=== PATIENT | female | born 1960 | race Caucasian/White ===

== ENCOUNTER → 2019-07-05 13:51 | Outpatient (BNVA) | payer MEDICARE, SELFPAY | PROVIDERS: Family Provider Family Medicine; PCP Family Medicine; Visit Provider Nurse Practitioner | DX: G89.4 Chronic pain syndrome (principal); M54.5 Low back pain; Z79.891 Long term (current) use of opiate analgesic | CPT/HCPCS: 99214 ==

== ENCOUNTER 2019-08-22 14:52 | Outpatient (CLI) | payer MEDICARE, SELFPAY ==
--- NOTE | 2019-08-22 14:59 | MR_ITS ---
WS: [id number] MRI BRAIN WITHOUT CONTRAST HISTORY: CHRONIC MIGRAINE COMPARISON: CT head 12/14/2017 TECHNIQUE: Diffusion imaging, multiplanar T1, T2 and FLAIR imaging obtained. No evidence for acute infarct or hemorrhage. Jeffries-white matter differentiation is normal. Mild chronic small vessel ischemic disease in the luciano bilaterally no prior infarcts. No remote or acute infarcts are volume loss. Ventricles and extra-axial spaces are normal. No inferior displacement of cerebellar tonsils. The sella turcica and pituitary gland are unremarkabl e. Posterior fossa is also unremarkable. Dural venous sinuses and [place] demonstrate no abnormality on this unenhanced studies. Paranasal sinuses: Clear. Mastoid air cells: Normal. Calvarium and scalp: Intact. MR/MR head wo con* [id number] IMPRESSION: 1. No acute infarct or hemorrhage. 2. Minimal small vessel ischemic change in the luciano.
== END 2019-08-22 14:53 | disposition home or self-care (01) ==
LOC: RADSHAW 14:58
PROVIDERS: Family Provider Family Medicine; PCP Internal Medicine; Visit Provider Internal Medicine
DX: G43.909 Migraine, unspecified, not intractable, without status migrainosus (principal)
CPT/HCPCS: 70551

== ENCOUNTER 2019-08-23 13:31 | Outpatient (CLI) | payer MEDICARE, SELFPAY ==
--- NOTE | 2019-08-23 13:34 | MM_ITS ---
WS: [id number] BILATERAL DIGITAL SCREENING MAMMOGRAPHY WITH CAD CLINICAL INFORMATION: SCREENING HISTORY: Screening mammogram. Pain near Left underarm COMPARISON: None. TECHNIQUE: Bilateral CC and MLO views. FINDINGS: Scattered fibroglandular densities bilaterally. Lobulated focal asymmetric densities lower inner left breast measuring 1.7 and 2.1 CM. A few associated calcifications. Findings are indeterminate and rec ommend further evaluation with spot compression views and ultrasound. Unremarkable right breast. MM/[place] [id number] IMPRESSION: BI-RADS: 0-Incomplete: Need additional imaging evaluation FOLLOW UP: Need Additional Imaging
--- NOTE | 2019-08-23 14:24 | XR_ITS ---
WS: [id number] DEXA (DUAL ENERGY X-RAY ABSORPTIOMETRY) Bone mineral density was performed using a kingsky machine. HISTORY: ASYMPTOMATIC POSTMENOPAUSAL COMPARISON: 11/12/2015 Lumbar spine BMD (L1-L4): 1.102 g/cm2 T score: -0.7 Z score: -0.5 Total hip BMD: Left: 0.855 g/cm2. T score: -1.2 Z score: -1.0 Right: 0.848 g/cm2. T score: -1.3 Z score: -1.1 10 year probability of a major osteoporotic fracture is 28%. Compared to the prior study from 11/12/2015. Lumbar spine bone mineral density has increased by 0.5%. Bilateral hips bone mineral density has decreased by 0.7%. XR/XR DEXA axial skeleton* [id number] IMPRESSION: OSTEOPENIA based upon the WHO classification for females. No significant change in bone mineral density since the prior examination.
== END 2019-08-23 13:32 | disposition home or self-care (01) ==
LOC: RADSHAW 13:31
PROVIDERS: Family Provider Family Medicine; PCP Internal Medicine; Visit Provider Internal Medicine
DX: Z12.31 Encounter for screening mammogram for malignant neoplasm of breast (principal); Z78.0 Asymptomatic menopausal state
CPT/HCPCS: 77067; 77080

== ENCOUNTER → 2019-09-01 13:34 | Outpatient (BNVA) | payer MEDICARE, SELFPAY | PROVIDERS: Family Provider Family Medicine; PCP Internal Medicine; Visit Provider Nurse Practitioner | DX: M54.5 Low back pain (principal); Z79.891 Long term (current) use of opiate analgesic | CPT/HCPCS: 99213 ==

== ENCOUNTER 2019-11-15 11:35 | Outpatient (CLI) | payer MEDICARE, SELFPAY ==
--- NOTE | 2019-11-15 12:05 | US_ITS ---
WS: [id number] ADDITIONAL VIEWS LEFT MAMMOGRAM LEFT BREAST ULTRASOUND HISTORY: ABNORMAL MAMMOGRAM LT COMPARISON: 08/23/2019 LEFT MAMMOGRAM: Spot compression views and true ML. Irregular asymmetry in the LEFT anterior breast persists. Asymmetry is within the medial inferior LEF T breast and measures 2.8 x 1.5 cm. On one image there is mild architectural distortion. There are a few adjacent calcifications which appear benign. LEFT BREAST ULTRASOUND 2-D and color Doppler imaging submitted. Ultrasound is directed to the inferomedial LEFT breast. There is an ill-defined hypoechoic area at 8: 00, 1 cm from the nipple, measuring 1.4 x 0.8 x 0.6 cm. This is in the location of the mammographic abnormality. No distortion. There are mild tubular echogenicities suggesting this may be a ductal abn ormality. Notified Charity Salazar MD at 11/15/2019 1:45 PM. US/US breast LT limited* [id number] IMPRESSION: BI-RADS: 4A-Suspicious: Low FOLLOW UP: Biopsy Recommended Mammographic asymmetry and a vague abnormality on the LEFT breast ultrasound im aging. Attempted biopsy is warranted. This may be normal fibroglandular pattern for this patient. Due to the changes on the mammogram and ultrasound, a biopsy should be attempted as this could be infiltrating ductal neoplastic process.
== END 2019-11-15 11:36 | disposition home or self-care (01) ==
LOC: RADSHAW 11:39
PROVIDERS: PCP Internal Medicine; Visit Provider Nurse Practitioner Family
DX: R92.8 Other abnormal and inconclusive findings on diagnostic imaging of breast (principal); N64.89 Other specified disorders of breast
CPT/HCPCS: 76642; 77065

== ENCOUNTER 2019-11-22 10:16 | Outpatient (CLI) | payer MEDICARE, SELFPAY ==
--- NOTE | 2019-11-22 10:46 | US_ITS ---
WS: [id number] ULTRASOUND-GUIDED LEFT BREAST BIOPSY HISTORY: ABNORMAL MAMMOGRAM-L BREAST COMPARISON: 11/15/2019 Procedure, risks and complications are explained to the patient. Medications are reviewed. Consent is obtained. The mass in the LEFT breast is localized with ultrasound. This is a very vague area of distortion at the 8 to 9:00 position, 1 cm from the nipple. Skin is cleansed with ChloraPrep and anesthetized with 1% buffered lidocaine. Small dermatome is made. Under sterile conditions mass is biopsied with a 14-g auge Achieve needle. Multiple core biopsies are performed. Material placed in formalin and [facility]. No complications encountered. Breast tissue marker ([employer] ultrasound enhanced ribbon): Single. Patient left the radiology suite with no complications. Patient is instructed to return to [facility] or [facility] with any concerns. US/[place] [id number] IMPRESSION: 1. Uncomplicated core needle biopsy vague asymmetry and distortion LEFT breast at 8-9 o'clock. PATHOLOGY: Benign breast tissue with fibrocystic changes. Duct ectasia and rio osis. No malignancy. RECOMMENDATION: Diagnostic mammogram 6 months LEFT breast. The asymmetry in the LEFT breast is likely benign and this is concordant with p athology. With no prior studies for comparison. Follow-up is recommended to [facility] continued stability.
== END 2019-11-22 10:17 | disposition home or self-care (01) ==
PROVIDERS: PCP Internal Medicine; Visit Provider Nurse Practitioner Family
DX: R92.8 Other abnormal and inconclusive findings on diagnostic imaging of breast (principal); N60.42 Mammary duct ectasia of left breast; N60.22 Fibroadenosis of left breast
CPT/HCPCS: 19083; 88305; J2001

== ENCOUNTER 2019-12-19 12:00 | Outpatient (CLI) | payer MEDICARE, SELFPAY | END 2019-12-19 12:01 | disposition home or self-care (01) | LOC: SLEEP 12-20 15:35 | PROVIDERS: PCP Internal Medicine; Visit Provider Internal Medicine | DX: G47.10 Hypersomnia, unspecified (principal) | CPT/HCPCS: G0399 ==

== ENCOUNTER → 2019-12-28 10:37 | Outpatient (BNVA) | payer MEDICARE, SELFPAY | PROVIDERS: PCP Internal Medicine; Visit Provider Nurse Practitioner | DX: G89.29 Other chronic pain (principal); M54.41 Lumbago with sciatica, right side; M54.42 Lumbago with sciatica, left side; Z79.891 Long term (current) use of opiate analgesic | CPT/HCPCS: 99213 ==

== ENCOUNTER → 2020-01-01 13:30 | Outpatient (BNVA) | payer MEDICARE, SELFPAY | PROVIDERS: PCP Internal Medicine; Visit Provider Obstetrics & Gynecology | DX: Z12.4 Encounter for screening for malignant neoplasm of cervix (principal) | CPT/HCPCS: 88175 ==

== ENCOUNTER → 2020-03-06 10:02 | Outpatient (BNVA) | payer MEDICARE, SELFPAY | PROVIDERS: PCP Internal Medicine; Visit Provider Nurse Practitioner | DX: G89.29 Other chronic pain (principal); M54.41 Lumbago with sciatica, right side; M54.42 Lumbago with sciatica, left side; Z79.891 Long term (current) use of opiate analgesic | CPT/HCPCS: 99214 ==

== ENCOUNTER → 2020-04-03 13:28 | Outpatient (BNVA) | payer MEDICARE, SELFPAY | PROVIDERS: PCP Internal Medicine; Visit Provider Anesthesiology | DX: G89.29 Other chronic pain (principal); M54.5 Low back pain; Z79.891 Long term (current) use of opiate analgesic | CPT/HCPCS: 99212; 99214 ==

== ENCOUNTER → 2020-05-30 14:16 | Outpatient (BNVA) | payer MEDICARE, SELFPAY | PROVIDERS: PCP Internal Medicine; Visit Provider Nurse Practitioner | DX: G89.29 Other chronic pain (principal); M54.5 Low back pain; Z79.891 Long term (current) use of opiate analgesic | CPT/HCPCS: 99213; 99214 ==

== ENCOUNTER 2020-06-20 14:05 | Outpatient (CLI) | payer MEDICARE, SELFPAY ==
--- NOTE | 2020-06-20 14:11 | MM_ITS ---
WS: [id number] Left breast diagnostic digital mammogram, 06/20/2020 Clinical Data: 6 MO F/U LEFT BREAST DUCTAL ECTASIA Comparison: 11/15/2019, 08/23/2019. Findings: The asymmetry in the medial inferior aspect of the left breast has not changed. There is a biopsy cli p in the midportion of the asymmetry. The remainder left breast is unremarkable. There are no seconda ry signs of carcinoma. There are no clustered calcifications. MM/[place] [id number] Impression: 1. Asymmetric tissue and medial inferior aspect left breast unchanged. 2. Recommend return to annual screening mammograms. BIRADS: 2-Benign FOLLOW UP: 1 Year Follow-up The CAD color checker was used.
== END 2020-06-20 14:06 | disposition home or self-care (01) ==
LOC: RADSHAW 14:08
PROVIDERS: PCP Internal Medicine; Visit Provider Nurse Practitioner Family
DX: R92.8 Other abnormal and inconclusive findings on diagnostic imaging of breast (principal); N64.89 Other specified disorders of breast
CPT/HCPCS: 77065

== ENCOUNTER 2020-07-03 14:16 | Outpatient (RCR) | payer MEDICARE, SELFPAY | END 2020-07-14 23:59 | disposition home or self-care (01) | LOC: SPT 14:16 | PROVIDERS: PCP Internal Medicine; Referring Provider Internal Medicine; Visit Provider Internal Medicine | DX: M51.17 Intervertebral disc disorders with radiculopathy, lumbosacral region (principal) | CPT/HCPCS: 97110; 97161 ==

== ENCOUNTER 2020-07-15 06:00 | Outpatient (RCR) | payer MEDICARE, SELFPAY | END 2020-08-11 23:59 | disposition home or self-care (01) | LOC: SPT 06:00 | PROVIDERS: PCP Internal Medicine; Referring Provider Internal Medicine; Visit Provider Internal Medicine | DX: M51.17 Intervertebral disc disorders with radiculopathy, lumbosacral region (principal) | CPT/HCPCS: 97032; 97110; 97530 ==

== ENCOUNTER 2020-08-26 08:55 | Outpatient (CLI) | payer MEDICARE, SELFPAY ==
--- NOTE | 2020-08-26 09:00 | MR_ITS ---
WS: [id number] MRI LUMBAR SPINE NONCONTRAST TECHNIQUE: Sagittal T1, T2 and STIR imaging. Axial T1 and T2 imaging. CLINICAL INFORMATION: DEGENERATIVE DISC DISEASE LUMBOSACRAL SPINE COMPARISON: MRI lumbar April 2017 FINDINGS: Mild lumbar curve. Mild disc bulging worse at L3-L4 and L4-L5. Biconcave slightly comminuted compress ion of the T12 vertebral body with mild to moderate edema. Moderate retropulsion posterior superior c ortex with moderate central canal stenosis. Biconcave compression with loss of approximately 60% vert ebral body height centrally. Associated susceptibility artifact at T12 may be due to prior vertebropl asty changes. Recommend correlation with clinical history. Edema extends to the pedicles bilaterally. Fluid-filled flexure cleft visualized in the superior endplate. Compression fracture new since 2018. L1-L2: Mild annular bulging. Spinal canal and foramen are patent. Mild facet arthropathy. L2-L3: Mild compression L2 superior endplate unchanged. No significant disc bulging. Moderate facet a rthropathy. Spinal canal and foramen are patent. L3-L4: Disc osteophyte complex with endplate ridging. Mild central canal stenosis. Impingement [place] right L4 nerve root. Mild right and no significant left foraminal narrowing. Moderate facet arth ropathy. L4-L5: Mild disc osteophytic ridging. Narrowing of the left greater than right subarticular recess. M ild central canal stenosis. Foramen are patent. L5-S1: Disc osteophyte complex with endplate ridging. Mild facet arthropathy. Spinal canal and forame n are patent. Visualized pelvic bony structures: Normal. Paravertebral soft tissues: Normal. MR/MR lumbar spine wo con* [id number] IMPRESSION: 1. Mild lumbar curve. Biconcave slightly comminuted compression fracture T12 v ertebral body with mild to moderate associated edema. Retropulsion of the poste rior superior cortex with moderate central canal stenosis. Susceptibility artif act may be due to prior vertebroplasty changes. Recommend correlation with clin ical history. 2. Mild central canal stenosis L3-L4 and L4-L5 with impingement on the right L3-L4 and left L4-L5 subarticular recess. 3. Mild to moderate facet arthropathy L3-L4 and L4-L5.
== END 2020-08-26 08:56 | disposition home or self-care (01) ==
LOC: RADSHAW 08:58
PROVIDERS: PCP Internal Medicine; Visit Provider Internal Medicine
DX: M51.17 Intervertebral disc disorders with radiculopathy, lumbosacral region (principal); M47.816 Spondylosis without myelopathy or radiculopathy, lumbar region; M48.061 Spinal stenosis, lumbar region without neurogenic claudication; R60.0 Localized edema
CPT/HCPCS: 72148

== ENCOUNTER → 2020-09-10 13:33 | Outpatient (BNVA) | payer MEDICARE, SELFPAY | PROVIDERS: PCP Internal Medicine; Visit Provider Orthopaedic Surgery | DX: M85.88 Other specified disorders of bone density and structure, other site (principal); S22.080A Wedge compression fracture of T11-T12 vertebra, initial encounter for closed fracture; M54.5 Low back pain; G89.29 Other chronic pain; X58.XXXA Exposure to other specified factors, initial encounter | CPT/HCPCS: 72110; 73522 ==

== ENCOUNTER 2020-10-27 17:50 | Inpatient (IN) | payer MEDICARE, SELFPAY ==
[2020-10-27] VITALS (10 sets, daily range): BP systolic 130–154; BP diastolic 70–84; PULSE 77–88; RESP 18–20; TEMP 36.6–37.3; O2SAT 91–98; BMI 29.5
--- NOTE | 2020-10-27 17:59 | CTR_ITS ---
PROCEDURE INFORMATION: Exam: CT Lumbar Spine Without Contrast Exam date and time: 10/27/2020 6:09 PM Age: 60 years old Clinical indication: Injury or trauma; Blunt trauma (contusions or hematomas); Patient HX: HX of t12 comp FX C/O worsened pain after fall down steps; Additional info: Back pain, compression fracture TECHNIQUE: Imaging protocol: Computed tomography images of the lumbar spine without contrast. Total images: 368 Radiation optimization: All CT scans at this facility use at least one of these dose optimization techniques: automated exposure control; mA and/or kV adjustment per patient size (includes targeted exams where dose is matched to clinical indication); or iterative reconstruction. COMPARISON: 1[place] [id number] 12/14/2017 6:44 AM 2. CR XR lumbar spine min 4V [id number] 09/10/2020 1:40:40 PM 3. MR lumbar spine wo con* [id number] 08/26/2020 9:59:27 AM RADIATION DOSE METRICS: Total DLP (mGy-cm): 2128.86 FINDINGS: Vertebrae: Old burst fracture T12. Since MRI examination of 08/26/2020 there has been increased dorsal/posterior translation of the posterior retropulsion fracture component off the posterior column of the vertebral body resulting in increased spinal stenosis. The AP diameter of the canal has decreased from 8.8 mm to 5.8 mm. Vertebra plana T12. No new fracture identified. Large Schmorl's node superior endplate L2. No spondylolysis or spondylolisthesis. Facet arthrosis. Mild scoliosis. Discs/Spinal canal/Neural foramina: Degenerative disc disease L4/L5 and L5/S1 with spondylosis deformans but without herniated nucleus pulposis or significant posterior annular disc bulge. Mild posterior annular disc bulge L3/L4 not resulting in central canal stenosis or neural foramina stenosis. Soft tissues: No visible significant paraspinal muscle atrophy. CT/CT lumbar spine wo con* [id number] IMPRESSION: 1. Old burst fracture T12 with vertebra plana. 2. Interval increase dorsal/posterior translation of the posterior retropulsion fragment resulting in increased central canal stenosis T12. Please review text above. Radiation Dose CTDIVOL = (mGy): DLP = 2128.86 (mGy-cm)
[2020-10-27] MEDS: morphine 4 mg/mL SDV 1 mL IM (18:10)
[2020-10-27] MEDS: orphenadrine 30 mg/mL Inj 2 mL 60 MG IM (18:10)
[2020-10-27 18:41] LABS: Protein Urine Neg (Negative); Specific Gravity, Urine 1.005 (1.005-1.030); Urine Color Yellow (Yellow); pH Urine 5 (5-7)
[2020-10-27 18:42] LABS: Add Urine Microscopic? YES; Bilirubin Urine Neg (Negative); Blood Urine Trace (Negative); Glucose Urine UA Norm (Normal); Ketones Urine Negative (Negative); Leukocyte Esterase Urine 2+ (Negative); Nitrate Urine Negative (Negative); Urobilinogen Urine Norm (Negative)
[2020-10-27 18:47] LABS: RBC Urine 0-4 /hpf (0-2); WBC Urine >100 /hpf (0-5)
[2020-10-27 18:48] LABS: Squamous Epithelial Cell Urine 25-40 /hpf (0-5)
[2020-10-27 18:49] LABS: Add Urine Culture? No; Bacteria Urine 2+ /hpf
--- NOTE | 2020-10-27 20:11 | PM.HP ---
Providers/Chief Complaint Admitting Physician: Nasim Kelly MD Primary Care Provider: Charity Salazar MD Chief Complaint: BACK PAIN History of Present Illness Niki Agosto is a 60 year old female with pmh of compression fracture ,chronic pain presnted to ER with worsening back pain for two weeks, constipation and urinary retention. Reports she fell in May. She has been following with pain management and spine surgery. In the ER she had a CT lumbar spine that showed progression fracture and stenosis she follows with spine surgery she denies fall, fevers, chills, addle anesthesia reports discomfort, and has discomfort radiating down both legs. Review of Systems General: Reports: 10 or more systems reviewed and unremarkable except in HPI and below Const: Denies: fever(s) or chills Eyes: Denies: change in vision ENMT: Denies: throat pain Card: Denies: chest pain Resp: Denies: dyspnea GI: Denies: abdominal pain : Reports: difficulty voiding Musc: Reports: back pain and extremity pain Skin/Breast: Denies: rash Neuro: Reports: numbness in extremities Medications/Allergies Home Medications Medication Instructions Recorded Confirmed Last Taken Type levothyroxine 50 mcg capsule 50 mcg PO QDAY 07/04/19 09/10/20 Unknown History propranolol 40 mg tablet 40 mg PO BID 07/04/19 09/10/20 Unknown History sumatriptan succinate 50 mg tablet 50 mg PO .1-2 prn tab 07/04/19 09/10/20 Unknown History topiramate 50 mg tablet 50 mg PO ONCE tab 07/04/19 09/10/20 Unknown History cholecalciferol (vitamin D3) 125 unit PO .1 week tab 09/01/19 09/10/20 Unknown History mcg (5,000 unit) disintegrating tablet topiramate 25 mg tablet 25 mg PO DAILY 09/01/19 09/10/20 Unknown History verapamil 120 mg tablet 120 mg PO DAILY tab 09/01/19 09/10/20 Unknown History oxybutynin chloride 5 mg tablet 10 mg PO DAILY tab 01/01/20 09/10/20 Unknown History lorazepam 0.5 mg tablet 0.5 mg PO ONCE PRN tab 03/06/20 09/10/20 Unknown History hydrocodone 10 mg-acetaminophen 1 tab PO QID PRN 30 Days #120 tab 04/03/20 09/10/20 Unknown Rx 325 mg tablet baclofen 20 mg tablet 20 mg PO QID PRN 30 Days #120 tab 05/30/20 09/10/20 Unknown Rx clobetasol 0.05 % topical cream 1 applic TOPICAL BID PRN #30 g 07/22/20 09/10/20 Unknown Rx nystatin 100,000 unit/gram topical 1 applic TOPICAL BID #30 gm 07/22/20 09/10/20 Unknown Rx powder duloxetine 30 mg capsule,delayed 60 mg PO QDAY cap 09/10/20 09/10/20 Unknown History release hydrocodone 10 mg-acetaminophen 1 tab PO Q4H PRN tab 09/10/20 09/10/20 Unknown History 325 mg tablet prednisone 20 mg tablet 20 mg PO DAILY #15 tab 10/21/20 Unknown Rx Allergies Allergy/AdvReac Type Severity Reaction Status Date / Time Penicillins Allergy RASH Verified 10/27/20 17:55 Sulfa (Sulfonamide Allergy ANAPHYLAXIS Verified 10/27/20 17:55 Antibiotics) PFSH Acute PFSH: Medical History (Updated 10/27/20 @ 20:42 by Nasim Kelly MD) Anxiety and depression Currently on Cymbalta managed by her primary care provider. Chronic hypertension Diagnosed at the age of 14 and controlled on medication managed by primary care provider. Chronic low back pain without sciatica Currently on hydrocodone and baclofen managed by the pain clinic Hypothyroid Currently on levothyroxine managed by PMD No pertinent past medical history Denies: hypertension, diabetes, heart, lung, liver, kidney, thyroid, genital herpes, bleeding problems, or clotting problems. her primary care provider is Dr. Salazar Surgical History History of ankle surgery 2006--LEFT x3. In [place] History of dental surgery tooth extraction Hx of section 03/26/89 S/P breast biopsy 2000-left breast-benign Family History Mother Family history of thyroid problem Thyroid condition Father Brain aneurysm Mother Hypertension Diabetes Denies family history of Colon cancer Ovarian cancer DVT (deep venous thrombosis) Heart disease Breast cancer Suicide Pulmonary embolism Uterine cancer Social History Smoking and tobacco status: never smoked Alcohol intake: current History of recent travel: No Additional social history: - Tobacco Use: Denies current or past use Alcohol Use: Drinks an alcoholic beverage daily. Drug Use: Denies Work/Study Status: Disabled due to chronic back pain Vitals/I&O/Wt Last Vital Signs Temp 97.8 F 10/27/20 18:13 Pulse 77 10/27/20 18:30 Resp 18 10/27/20 18:13 BP 146/70 10/27/20 18:13 Pulse Ox 94 10/27/20 18:13 Weight last 48 hrs Weight 200 lb Physical Exam Const: ORIENTATION/CONSCIOUSNESS: Yes awake, Yes oriented to person, Yes oriented to place and Yes oriented to time Resp: COMMON NORMALS: normal respiratory effort and No retractions Cardio: COMMON NORMALS: no JVD, regular rate and regular rhythm GI: AUSCULTATION: Yes normoactive bowel sounds Neuro: COMMON NORMALS: patient oriented x3 and CN's II-XII intact bilaterally Urinary Catheter Management^: Portillo: Cath Placed During This Visit: yes Urinary Catheter Date of Insertion: 10/27/20 Urinary Catheter Time of Insertion: 18:30 Data : 10/27/20 20:05 10/27/20 20:05 Other data: Lumbar CT FINDINGS: Vertebrae: Old burst fracture T12. Since MRI examination of 08/26/2020 there has been increased dorsal/posterior translation of the posterior retropulsion fracture component off the posterior column of the vertebral body resulting in increased spinal stenosis. The AP diameter of the canal has decreased from 8.8 mm to 5.8 mm. Vertebra plana T12. No new fracture identified. Large Schmorl's node superior endplate L2. No spondylolysis or spondylolisthesis. Facet arthrosis. Mild scoliosis. Discs/Spinal canal/Neural foramina: Degenerative disc disease L4/L5 and L5/S1 with spondylosis deformans but without herniated nucleus pulposis or significant posterior annular disc bulge. Mild posterior annular disc bulge L3/L4 not resulting in central canal stenosis or neural foramina stenosis. Soft tissues: No visible significant paraspinal muscle atrophy. CT/CT lumbar spine wo con* [id number] IMPRESSION: 1. Old burst fracture T12 with vertebra plana. 2. Interval increase dorsal/posterior translation of the posterior retropulsion fragment resulting in increased central canal stenosis T12. Please review text above. A&P Assessment and plan (1) Compression fracture: admit to med surg resume PO, IV pain medication add PO Prednisone spine surgery consult ?Kyphoplasty NPO after midnight Status: Acute (2) Chronic hypertension: restart home medication Status: Acute (3) Anxiety and depression: on duloxetine Status: Acute (4) Chronic pain disorder: adjust pain medications as needed Status: Chronic (5) UTI (urinary tract infection): start macrobid Status: Acute (6) Constipation: add colace Status: Acute (7) Urinary retention: Status: Acute (8) Generalized headaches: topiramate, verapamil Status: Acute (9) Hypothyroid: on thyroid replacement Status: Acute Attestations Medical Necessity Statement*: Niki Agosto's hospital stay will require greater than 2 midnights for back pain Coding Level of Care Code Acute [employer] Exam Detailed Diagnoses Compression fracture Chronic hypertension I10 Anxiety and depression F41.9; F32.9 Chronic pain disorder G89.4 UTI (urinary tract infection) N39.0 Constipation K59.00 Urinary retention R33.9 Generalized headaches R51.9 Hypothyroid E03.9
[2020-10-27 20:21] LABS: Basophils # 0.1 10^3/uL (0.0-0.1); Basophils % 0.6 %; Eosinophils # 0.1 10^3/uL (0.0-0.8); Eosinophils % 1.6 %; Hematocrit 41.3 % (37.0-47.0); Hemoglobin 13.4 g/dL (11.5-15.3); Lymphocytes # 1.3 10^3/uL (0.8-4.8); Lymphocytes % 15.7 %; Mean Corpuscular HGB Conc 32.4 g/dL (30.0-36.0); Mean Corpuscular Hemoglobin 30.5 pg (28.0-34.0); Mean Corpuscular Volume 94.1 fL (81-99); Mean Platelet Volume 10.2 fL (7.4-10.4); Monocytes # 0.6 10^3/uL (0.2-0.9); Monocytes % 7.6 %; Neutrophils # 5.95 10^3/uL (1.8-7.7); Neutrophils % 74.4 %; Nucleated Red Blood Cells % 0 %; Platelet Count 251 10^3/cmm (130-400); Red Blood Count 4.39 10^6/uL (4.1-5.3); Red Cell Distribution Width 12.8 % (12.1-15.1)
--- NOTE | 2020-10-27 20:27 | ED_ITS ---
HPI - Extremity Problem General: Chief complaint: Extremity Problem,Nontraumatic Stated complaint: BACK PAIN Time Seen by Provider: 10/27/20 17:53 Source: patient Mode of arrival: EMS Limitations: no limitations History of Present Illness: HPI Narrative: Patient is a 60 year old female with a history of T12 compression fracture and chronic low back pain who has been seen by the spine surgeon and pain specialist. She is being worked up for possible spine surgery although the area of her pain is not consistent with where her compression fracture is located. The surgeon therefore wanted to try conservative measures prior to surgery. Patient states that in the last week her pain has been progressively worsening and she has had increased weakness in both lower extremities. She also states that she has been unable to urinate or have a bowel movement, however I am unable to ascertain if it is due to pain or if it is due to an actual inability stemming from a nerve issue. As best as I can it appears to be pain that is causing the symptoms as she says when she sits down on the toilet she is unable to get up. She however has progressive weakness in her legs. No recent falls. She states that she is in a lot of pain and she is unable to care for herself and so needs help. Review of Systems General: Reports: 10 or more systems reviewed and unremarkable except in HPI and below PFSH ED PFSH: Medical History (Updated 10/27/20 @ 23:40 by Kenneth Schuster MD, [facility] [place]) Anxiety and depression Currently on Cymbalta managed by her primary care provider. Chronic hypertension Diagnosed at the age of 14 and controlled on medication managed by primary care provider. Chronic low back pain without sciatica Currently on hydrocodone and baclofen managed by the pain clinic Hypothyroid Currently on levothyroxine managed by PMD No pertinent past medical history Denies: hypertension, diabetes, heart, lung, liver, kidney, thyroid, genital herpes, bleeding problems, or clotting problems. her primary care provider is Dr. Salazar Surgical History (Reviewed 10/27/20 @ 20:33 by Kenneth Schuster MD, [facility] [place]) History of ankle surgery 2006--LEFT x3. In [place] History of dental surgery tooth extraction Hx of section 03/26/89 S/P breast biopsy 2000-left breast-benign Family History (Reviewed 10/27/20 @ 20:33 by Kenneth Schuster MD, [facility] [place]) Mother Family history of thyroid problem Thyroid condition Father Brain aneurysm Mother Hypertension Diabetes Denies family history of Colon cancer Ovarian cancer DVT (deep venous thrombosis) Heart disease Breast cancer Suicide Pulmonary embolism Uterine cancer Social History (Reviewed 10/27/20 @ 20:33 by Kenneth Schuster MD, [facility] [place]) Smoking and tobacco status: never smoked Alcohol intake: current History of recent travel: No Additional social history: - Tobacco Use: Denies current or past use Alcohol Use: Drinks an alcoholic beverage daily. Drug Use: Denies Work/Study Status: Disabled due to chronic back pain Physical Exam Const: COMMON NORMALS: no acute distress, average body habitus, patient oriented x3, no limitations, healthy appearing, alert and well nourished HENMT: COMMON NORMALS: normocephalic, atraumatic and moist oral mucous membranes HEAD & SCALP: normocephalic and atraumatic Neck/C-Spine: COMMON NORMALS: no meningeal signs and no JVD Resp: COMMON NORMALS: normal respiratory effort, No retractions, No use of accessory muscles, clear to auscultation bilaterally and percussion normal AUSCULTATION: clear to auscultation bilaterally PERCUSSION: percussion normal Cardio: COMMON NORMALS: no JVD, regular rate, regular rhythm, S1 normal heart sound present, S2 normal heart sound present, No gallops present (Cardio), No clicks present (Cardio), No murmurs present (Cardio), No rub (Cardio) and Peripheral pulses 2+ throughout RATE: regular rate RHYTHM: regular rhythm HEART SOUNDS: S1 normal heart sound present and S2 normal heart sound present PERIPHERAL PULSES: Peripheral pulses 2+ throughout GI: COMMON NORMALS: Normal to inspection, nondistended, normoactive bowel sounds present, Soft to palpation, non-tender, No hepatosplenomegaly present, no masses and no bruits PALPATION: Yes Soft to palpation and Yes No hepatosplenomegaly present : COMMON NORMALS: Yes no CVA tenderness BLADDER/KIDNEY EXAM: Yes no CVA tenderness Back/Pelvis: COMMON NORMALS: no CVA tenderness LUMBAR SPINE/LOWER BACK: No lumbar ROM normal and Yes lumbar spinal tenderness Lumbar spinal tenderness location: L4 and L5 OTHER: unable to perform a SLR due to pain. Extremity: COMMON NORMALS: normal to inspection, full ROM, capillary refill normal, no calf tenderness and no pedal edema Neuro: COMMON NORMALS: patient oriented x3 SENSORIUM/ORIENTATION: Yes alert MENINGEAL SIGNS: Yes no meningeal signs Skin: COMMON NORMALS: no rashes or lesions noted, no wounds, turgor normal, no jaundice, no petechiae and no mottling GENERAL SKIN EXAM: no rashes or lesions noted and turgor normal Course Consultations: Consultation #1: Discussed the patient with Dr. Stoll, spine surgeon. He advised that we admit the patient to the hospitalist service and he will evaluate her in the morning. Time: 19:42 Consultation #2: Discussed the patient with Dr. Kelly, hospitalist. And he kindly accepted the patient to his service. Time: 19:47 Vital Signs: Vital signs: Vital Signs Temperature 99.0 F 10/27/20 23:13 Pulse Rate 88 10/27/20 23:13 Respiratory Rate 18 10/27/20 23:13 Blood Pressure 130/79 10/27/20 23:13 Pulse Oximetry 96 10/27/20 23:13 MDM - Extremity (Nontraumatic) MDM Narrative: Medical decision making narrative: 60-year-old female patient with a history of T12 compression fracture and chronic back pain presented to [facility] emergency department with worsening low back pain, weakness in her lower extremities and difficulty with urination and defecation. Imaging done in the emergency department showed that there is worsening of her T12 fracture with posterior displacement and increased canal stenosis. Examination was not properly done because the patient was in too much pain to allow a complete examination to see especially how weak she was. No discernible paresthesia on examination. Because subjectively she is getting weaker, and on imaging she is having worsening of compression fracture she has been admitted to the hospital to be evaluated by the spine surgeon to see if she needs urgent intervention. Medical Records: Attestation: I reviewed the patient's medical records. Lab Data: Attestation: I reviewed the patient's lab results. Labs: Lab Results 10/27/20 Range/Units 18:20 Urine Color Yellow (Yellow) Urine Appearance Sl cloudy A (CLEAR) Urine pH 5 (5-7) Ur Specific Gravit y 1.005 (1.005-1.030) Urine Protein Neg (Negative) Urine Glucose (UA) Norm (Normal) Urine Ketones Negative (Negative) Urine Blood Trace H (Negative) Urine Nitrate Negative (Negative) Urine Bilirubin Neg (Negative) Urine Urobilinogen Norm (Negative) mg/dL Ur Leukocyte Irene ase 2+ H (Negative) Urine RBC 0-4 H (0-2) /hpf Urine WBC >100 H (0-5) /hpf Ur Squamous Epith Cells 25-40 H (0-5) /hpf Amorphous Sediment Not Reportable Urine Bacteria 2+ H (NONE) /hpf Imaging Data^: Other CT: Attestation: I personally reviewed and interpreted this imaging study as follows: Radiologist's impression: [employer] [place] [address] [id number] Scan ReportSigned Patient: Niki Agosto #: [id number]: [id number]#:[id number]/Sex: 60 / FADM Date: 10/27/20Loc: ERRoom/Bed:Attending Dr: Ordering Provider/Ordering MD: Kenneth Schuster MD, [facility] [place] Date of Service: 10/27/20 Procedure(s): CT lumbar spine wo con* [id number] Accession Number(s): [id number] Report Number: [id number] PROCEDURE INFORMATION: Exam: CT Lumbar Spine Without Contrast Exam date and time: 10/27/2020 6:09 PM Age: 60 years old Clinical indication: Injury or trauma; Blunt trauma (contusions or hematomas); Patient HX: HX of t12 comp FX C/O worsened pain after fall down steps; Additional info: Back pain, compression fracture TECHNIQUE: Imaging protocol: Computed tomography images of the lumbar spine without contrast. Total images: 368 Radiation optimization: All CT scans at this facility use at least one of these dose optimization techniques: automated exposure control; mA and/or kV adjustment per patient size (includes targeted exams where dose is matched to clinical indication); or iterative reconstruction. COMPARISON: 1[place] [id number] 12/14/2017 6:44 AM 2. CR XR lumbar spine min 4V [id number] 09/10/2020 1:40:40 PM 3. MR lumbar spine wo con* [id number] 08/26/2020 9:59:27 AM RADIATION DOSE METRICS: Total DLP (mGy-cm): 2128.86 FINDINGS: Vertebrae: Old burst fracture T12. Since MRI examination of 08/26/2020 there has been increased dorsal/posterior translation of the posterior retropulsion fracture component off the posterior column of the vertebral body resulting in increased spinal stenosis. The AP diameter of the canal has decreased from 8.8 mm to 5.8 mm. Vertebra plana T12. No new fracture identified. Large Schmorl's node superior endplate L2. No spondylolysis or spondylolisthesis. Facet arthrosis. Mild scoliosis. Discs/Spinal canal/Neural foramina: Degenerative disc disease L4/L5 and L5/S1 with spondylosis deformans but without herniated nucleus pulposis or significant posterior annular disc bulge. Mild posterior annular disc bulge L3/L4 not resulting in central canal stenosis or neural foramina stenosis. Soft tissues: No visible significant paraspinal muscle atrophy. CT/CT lumbar spine wo con* [id number] IMPRESSION: 1. Old burst fracture T12 with vertebra plana. 2. Interval increase dorsal/posterior translation of the posterior retropulsion fragment resulting in increased central canal stenosis T12. Please review text above. Radiation Dose CTDIVOL = (mGy): DLP = 2128.86 (mGy-cm) Dictated By:Carlyn Nolen By:Carlyn Nolen Date/Time:10/27/20D/ 29 Discharge Plan Discharge Patient Disposition: Admitted As Inpatient Admit Provider: Nasim Kelly Clinical Impression: Compression fracture Spinal stenosis Qualifiers: Spinal region: thoracolumbar Qualified Code(s): M48.05 - Spinal stenosis, thoracolumbar region Condition: Stable Coding Level of Care Code ED Tour Agent for g Fwd Exam Comprehensive
[2020-10-27] MEDS: HYDROmorphone 1 mg/mL INJ 1 mL IVP (20:30)
[2020-10-27 20:35] LABS: Alanine Aminotransferase 10 U/L (0-33); Albumin Level 4.1 g/dL (3.5-5.2); Alkaline Phosphatase 85 IU/L (35-105); Aspartate Amino Transferase 16 U/L (0-32); Blood Urea Nitrogen 13 mg/dL (8-23); Calcium 9.2 mg/dL (8.5-10.5); Carbon Dioxide 26 mmol/L (22-29); Chloride 103 mmol/L (98-107); Globulin 3.4 g/dL (1.3-4.6); Glucose 116 mg/dL (65-115); Osmolality Calculated 291 mOsm/kg (285-295); Sodium 140 mmol/L (136-145); Total Bilirubin 0.3 mg/dL (0.15-1.2); Total Protein 7.5 g/dL (6.6-8.7)
[2020-10-27 20:41] LABS: Anion Gap 15.3 (5-19); Potassium 4.3 mmol/L (3.5-5.1)
[2020-10-27] MEDS: sodium chloride 0.9% 1,000 ML 75 ML IV (21:47)
[2020-10-27] MEDS: predniSONE 20 mg Tablet PO (21:47)
[2020-10-27] MEDS: nitrofurantoin SR (BID) 100 mg Capsule PO (21:48)
[2020-10-27] MEDS: docusate sodium 100 mg Capsule PO (21:48)
[2020-10-27] MEDS: baclofen 10 mg Tablet 20 MG PO (22:00)
[2020-10-27] MEDS: morphine 4 mg/mL SDV 1 mL 2 MG IVP (22:06)
[2020-10-27] MEDS: oxyCODONE 5 mg IR Tab/Cap PO (23:50)
[2020-10-27] MEDS: LORazepam 0.5 mg Tablet PO (23:51)
[2020-10-28] VITALS (19 sets, daily range): BP systolic 88–150; BP diastolic 63–87; PULSE 59–112; RESP 12–22; TEMP 36.2–37.6; O2SAT 90–99
--- NOTE | 2020-10-28 | SCC_ITS ---
Procedure Done: 1. T9-L2 PSF 2. T9- L2 Instrumentation 3. T12 laminectomy 4. L1 laminectomy 5. Reduction of T12 Burst fracture 6. Use of autograft from same incision 7. Use of allograft 8. BMA from iliac crest 9. Use of steroeotactic computer navigation of the spine C-arm images of the lumbar spine were saved for the patient's permanent record. TYLER
[2020-10-28] MEDS: morphine 4 mg/mL SDV 1 mL 2 MG IVP ×3 (02:58→22:21)
[2020-10-28] MEDS: baclofen 10 mg Tablet 20 MG PO (04:08)
[2020-10-28] MEDS: acetaminophen 325 mg Tablet 650 MG PO (04:08)
--- NOTE | 2020-10-28 06:57 | PM.CONSULT ---
Providers/Reason For Consult Consulting Physican/Specialty*: hospitalist Reason for Consult*: Compression fracture T12 Attending Physician: Nasim Kelly MD Primary Care Provider: Charity Salazar MD History of Present Illness History of Present Illness Niki Agosto is a 60 year old female with pmh of compression fracture ,chronic pain presnted to ER with worsening back pain for two weeks, constipation and urinary retention. Reports she fell in May. She has been following with pain management and spine surgery. In the ER she had a CT lumbar spine that showed progression fracture and stenosis she follows with spine surgery she denies fall, fevers, chills, addle anesthesia reports discomfort, and has discomfort radiating down both legs. Review of Systems General: Reports: 10 or more systems reviewed and unremarkable except in HPI and below Const: Denies: fever(s) or chills Eyes: Denies: change in vision ENMT: Denies: throat pain Card: Denies: chest pain Resp: Denies: dyspnea GI: Denies: abdominal pain : Reports: difficulty voiding Musc: Reports: back pain and extremity pain Skin/Breast: Denies: rash Neuro: Reports: numbness in extremities All/Imm: Denies: acute wheezing Meds/Allergies Home Medications and Allergies Home Medications Medication Instructions Recorded Confirmed Last Taken Type levothyroxine 50 mcg capsule 50 mcg PO QDAY 07/04/19 10/27/20 10/27/20 03:00 History propranolol 40 mg tablet 40 mg PO BID 07/04/19 10/27/20 10/27/20 03:00 History sumatriptan succinate 50 mg tablet 50 mg PO .1-2 prn tab 07/04/19 10/27/20 10/21/20 10:00 History topiramate 50 mg tablet See Rx Instructions .ROUTE 07/04/19 10/27/20 10/26/20 21:00 History .COMPLEX tab cholecalciferol (vitamin D3) 125 See Rx Instructions .ROUTE 09/01/19 10/27/20 10/27/20 03:00 History mcg (5,000 unit) disintegrating .COMPLEX tab 125 mcg tablet topiramate 25 mg tablet See Rx Instructions .ROUTE .COMPLEX 09/01/19 10/27/20 10/26/20 21:00 History verapamil 120 mg tablet 120 mg PO DAILY tab 09/01/19 10/27/2021 21:00 History oxybutynin chloride 5 mg tablet See Rx Instructions .ROUTE 01/01/20 10/27/20 10/27/20 03:00 History .COMPLEX tab hydrocodone 10 mg-acetaminophen 1 tab PO QID PRN 30 Days #120 tab 04/03/20 10/27/20 10/27/20 16:00 Rx 325 mg tablet baclofen 20 mg tablet 20 mg PO QID PRN 30 Days #120 tab 05/30/20 10/27/20 10/27/20 03:00 Rx clobetasol 0.05 % topical cream 1 applic TOPICAL BID PRN #30 g 07/22/20 10/27/20 Unknown Rx duloxetine 30 mg capsule,delayed 60 mg PO QDAY cap 09/10/20 10/27/20 10/27/20 03:00 History release prednisone 20 mg tablet 20 mg PO DAILY #15 tab 10/21/20 10/27/20 10/07/20 06:00 Rx Allergies Allergy/AdvReac Type Severity Reaction Status Date / Time Penicillins Allergy RASH Verified 10/27/20 17:55 Sulfa (Sulfonamide Allergy ANAPHYLAXIS Verified 10/27/20 17:55 Antibiotics) Current Medications Current Medications Generic Name Dose Route Start Last Admin Trade Name Freq PRN Reason Stop Dose Admin Acetaminophen 650 mg 10/27/20 19:58 10/28/20 04:08 Acetaminophen 325 Mg Tablet PO 650 mg Q6H PRN Administration Mild/Mod Pain Or Temp >/= 101 Baclofen 20 mg 10/27/20 21:34 10/28/20 04:08 Baclofen 10 Mg Tablet PO 20 mg QID PRN Administration spasms Docusate Sodium 100 mg 10/27/20 20:40 10/27/20 21:48 Docusate Sodium 100 Mg Capsule PO 100 mg DAILY VERONICA Administration Sodium Chloride 1,000 mls @ 75 mls/hr 10/27/20 20:00 10/27/20 21:47 Sodium Chloride 0.9% IV 75 mls/hr .[id number] VERONICA Administration Morphine Sulfate 2 mg 10/27/20 20:26 10/28/20 02:58 Morphine 4 Mg/Ml Sdv 1 Ml IVP 2 mg Q4H PRN Administration MODERATE PAIN Nitrofurantoin Macrocrystals 100 mg 10/27/20 20:05 10/27/20 21:48 Nitrofurantoin Sr (Bid) 100 Mg Capsule PO 10/31/20 09:00 100 mg BID VERONICA Administration Oxycodone HCl 5 mg 10/27/20 19:58 10/27/20 23:50 Oxycodone 5 Mg Ir Tab/Cap PO 5 mg Q6H PRN Administration SEVERE PAIN PFSH Acute PFSH: Medical History (Updated 10/27/20 @ 23:40 by Kenneth Schuster MD, [facility] [place]) Anxiety and depression Currently on Cymbalta managed by her primary care provider. Chronic hypertension Diagnosed at the age of 14 and controlled on medication managed by primary care provider. Chronic low back pain without sciatica Currently on hydrocodone and baclofen managed by the pain clinic Hypothyroid Currently on levothyroxine managed by PMD No pertinent past medical history Denies: hypertension, diabetes, heart, lung, liver, kidney, thyroid, genital herpes, bleeding problems, or clotting problems. her primary care provider is Dr. Salazar Surgical History History of ankle surgery 2006--LEFT x3. In [place] History of dental surgery tooth extraction Hx of section 03/26/89 S/P breast biopsy 2000-left breast-benign Family History Mother Family history of thyroid problem Thyroid condition Father Brain aneurysm Mother Hypertension Diabetes Denies family history of Colon cancer Ovarian cancer DVT (deep venous thrombosis) Heart disease Breast cancer Suicide Pulmonary embolism Uterine cancer Social History Smoking and tobacco status: never smoked Alcohol intake: current History of recent travel: No Additional social history: - Tobacco Use: Denies current or past use Alcohol Use: Drinks an alcoholic beverage daily. Drug Use: Denies Work/Study Status: Disabled due to chronic back pain Dietary Habits: Current diet type/program: regular Caffeine: Yes Caffeine intake frequency: tea Safety: Seatbelt use: always Drive intoxicated or ride with intoxicated car driver?: never Home Safety: Working smoke detector in home: Yes Fire extinguisher in home: No Carbon monoxide detector in home: No Firearms in home: Yes Firearms unloaded and locked?: No Vitals/I&O/Wt Last Vital Signs Temp 97.9 F 10/28/20 03:00 Pulse 84 10/28/20 03:00 Resp 19 H 10/28/20 03:00 BP 143/86 10/28/20 03:00 Pulse Ox 96 10/28/20 03:00 10/27/20 10/27/20 10/28/20 14:59 22:59 06:59 Intake Total 120 / 120 0 / 120 Output Total 1200 / 1200 Balance 120 / 120 -1200 / -1080 Weight last 48 hrs Weight 200 lb Physical Exam Narrative: EXAM NARRATIVE: CONSTITUTIONAL: The patient is a normal appearing [] in no apparent distress. GENERAL: Patient in no acute distress. CARDIAC: Regular rate and rhythm. CHEST: Normal inspiratory effort, normal respiratory rate. ABDOMEN: Soft and nontender. SKIN: Clear, warm and intact. NEURO?PSYCH: The patient is alert and oriented to person, place and time. Sensorv /SILT Motor StrengthShoulder abduction C5 5/5Wrist extension C6 5/5Elbow extension C7 5/5Hand Dry Chain Offbearer C8 5/5Finger abduction T15/5 Radial/ Ulnar/ Median n intact LowerSensory (SILT)Motor StrengthHin flexion L2/3Ant/inner thigh 5/5Hip adduction L2/3 5/5Knee extension L4 Lat thigh, 4/5Toe dorsiflexion L5 4/5Ankle dorsiflexion L5/ [id number] flexion S1 4/5 DTRBleeps 2+Triceps 2+Brachioradialis 2+Patellar 2+Achilles 2+ MUSCULOSKELETAL: [] UPPEREXTREMITIES: The patient had full active ROM in fingers, wrist, elbow, and shoulder. The patient demonstrated ability to fully flex/extend/abduct/adduct fingers, make ok sign, cross 2nd/3rd digits, extend 1st digit fully.. Radial pulse 2+, CR<2 seconds. LOWER EXTREMITIES: Pt has full, active ROM of toes, ankle, knee, and hip. Dorsalis pedis/posterior tibialis pulses 2+, CR<2 seconds. SPINE: Skin warm, dry, intact. Urinary Catheter Management^: Portillo: Cath Placed During This Visit: yes Reason for Continuing Indwelling Catheter: Perioperative Use in Selected Surgeries Urinary Catheter Date of Insertion: 10/27/20 Urinary Catheter Time of Insertion: 18:30 A&P Assessment and plan (1) Compression fracture: T9-L2 Posterior Spine fusion with decompression Status: Acute (2) Spinal stenosis: Status: Acute Qualifiers: Spinal region: thoracolumbar Qualified Code(s): M48.05 - Spinal stenosis, thoracolumbar region Consult Attestations Medical Necessity Statement: progressive worsening of symptoms Coding Level of Care Code Acute Installation Tech for [facility] Diagnoses Compression fracture Spinal stenosis M48.05 Spinal region: thoracolumbar
[2020-10-28] MEDS: propranolol 40 mg Tablet PO (08:39)
[2020-10-28] MEDS: oxyCODONE 5 mg IR Tab/Cap PO (08:39)
[2020-10-28] MEDS: oxybutynin 5 mg Tablet 10 MG PO (08:39)
[2020-10-28] MEDS: duloxetine 30 mg Capsule 60 MG PO (08:39)
[2020-10-28] MEDS: nitrofurantoin SR (BID) 100 mg Capsule PO (08:39)
[2020-10-28] MEDS: levothyroxine 50 mcg Tablet PO (08:40)
[2020-10-28] MEDS: docusate sodium 100 mg Capsule PO (08:40)
[2020-10-28] MEDS: topiramate 25 mg Tablet PO (08:43)
--- NOTE | 2020-10-28 10:26 | PC.CHAP ---
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 licensed aircraft maintenance engineer visit [] Patient/Family/Request visit [] Outpatient visit [] Follow-up visit [] Physician referral [] Code/Alert [] Routine visit [] Staff referral [] Actively dying [] Patient sleeping [] Family support [] [] Out of room [] Palliative care [] [] Receiving care in room [] Pre-surgical visit [] Trauma [] Long length of stay [] ICU visit [] Other: Relational/Emotional Strength [] Patient feels connected with others/family/visitors/staff [] Distress [] Loneliness/isolation [] Abandonment Spirituality of Patient [] Person of Dayanna [] Attends Scientologist of their Dayanna [] Believes in Prayer [] Reads Bible or Muslim materials [] There are Spiritual issues to be addressed Audio Visual Collections Coordinator Interventions [x] Prayer [] Active listening [] Non-anxious presence [] Spiritual/emotional support [] Crisis/trauma care [] Spiritual counseling [] Bereavement support [] Provided bereavement packet [] Provided Bible/devotional materials [] Provided toy/stuffed animal, coloring book to patient or family member [] Provided Communion [] Anointing/[place] [] Salvation [] Completed spiritual assessment [] Other: Impact on Illness or Injury [] Angry [] Fearful [] Anxious [] Often cries [] Exhaustion [] Unable to work [] Unable to attend church [] Unable to walk/stand [] Unable to read [] Unable to drive [] Unable to eat/drink [] Unable to sleep [] Unable to be with family [] Patient intubated [] Other: Summary prayed Time spent with patient 5min
--- NOTE | 2020-10-28 10:27 | PC.CHAP ---
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 extracorporeal circulation specialist visit [] Patient/Family/Request visit [] Outpatient visit [] Follow-up visit [] Physician referral [] Code/Alert [] Routine visit [] Staff referral [] Actively dying [] Patient sleeping [] Family support [] [] Out of room [] Palliative care [] [] Receiving care in room [] Pre-surgical visit [] Trauma [] Long length of stay [] ICU visit [] Other: Relational/Emotional Strength [] Patient feels connected with others/family/visitors/staff [] Distress [] Loneliness/isolation [] Abandonment Spirituality of Patient [] Person of Dayanna [] Attends Yazidi of their Dayanna [] Believes in Prayer [] Reads Bible or Hinduism materials [] There are Spiritual issues to be addressed Morgue Keeper Interventions [x] Prayer [] Active listening [] Non-anxious presence [] Spiritual/emotional support [] Crisis/trauma care [] Spiritual counseling [] Bereavement support [] Provided bereavement packet [] Provided Bible/devotional materials [] Provided toy/stuffed animal, coloring book to patient or family member [] Provided Communion [] Anointing/[place] [] Salvation [] Completed spiritual assessment [] Other: Impact on Illness or Injury [] Angry [] Fearful [] Anxious [] Often cries [] Exhaustion [] Unable to work [] Unable to attend religion [] Unable to walk/stand [] Unable to read [] Unable to drive [] Unable to eat/drink [] Unable to sleep [] Unable to be with family [] Patient intubated [] Other: Summary Time spent with patient 5min
[2020-10-28] MEDS: sodium chloride 0.9% 1,000 ML 75 ML IV (10:32)
--- NOTE | 2020-10-28 11:24 | PM.PN ---
Subjective Subjective: Interval history: planned for OR with Dr. Stoll for decompressive surgery today. C/o numbness and pain in B/L lower extremities. Medications: Reviewed: Yes Vitals/I&O/Wt Last Vital Signs Temp 98.7 F 10/28/20 11:15 Pulse 77 10/28/20 11:15 Resp 16 10/28/20 11:15 BP 150/87 10/28/20 11:15 Pulse Ox 96 10/28/20 11:15 10/27/20 10/28/20 10/28/20 22:59 06:59 14:59 Intake Total 120 / 120 0 / 120 956.25 / 956.25 Output Total 1200 / 1200 Balance 120 / 120 -1200 / -1080 956.25 / 956.25 Weight last 48 hrs Weight 90.718 kg Physical Exam Narrative: EXAM NARRATIVE: GEN: Awake, alert and oriented, no acute distress CVS: S1S2 N RS: CTA B/L Abd: Soft, nt/nd , bs+ EXT: lawson in place, drains clear urine. Urinary Catheter Management^: Lawson: Cath Placed During This Visit: yes Reason for Continuing Indwelling Catheter: Perioperative Use in Selected Surgeries Urinary Catheter Date of Insertion: 10/27/20 Urinary Catheter Time of Insertion: 18:30 Data : 10/27/20 20:05 10/27/20 20:05 A&P Assessment and plan (1) Compression fracture: With associated signs of spinal cord compression including numbness, inability to walk, bowel and bladder incontinence Planned for OR for decompressive surgery with Dr. Stoll today Continue NPO Pain currently controlled Recievd Prednisone 20mg x 1 overnight, previously had received 2 week course as outpatient. Status: Acute (2) Chronic hypertension: Continue Verapamil Status: Acute (3) Anxiety and depression: on duloxetine Status: Acute (4) Chronic pain disorder: Status: Chronic (5) UTI (urinary tract infection): start Ceftraixone, d/c macrobid + UA, urine cx ordered Status: Acute (6) Constipation: add colace Status: Acute (7) Urinary retention: Lawson in place Status: Acute (8) Generalized headaches: topiramate, verapamil Status: Acute (9) Hypothyroid: on thyroid replacement Status: Acute (10) Spinal cord compression: Plan for decompressive surgery today Status: Acute Attestations Medical Necessity Statement*: OR for decompressive surgery today Coding Level of Care Code Acute Branch Sales And Service Representative for Chg Fwd Diagnoses Compression fracture Chronic hypertension I10 Anxiety and depression F41.9; F32.9 Chronic pain disorder G89.4 UTI (urinary tract infection) N39.0 Constipation K59.00 Urinary retention R33.9 Generalized headaches R51.9 Hypothyroid E03.9 Spinal cord compression G95.20
[2020-10-28] MEDS: cefTRIAXone 1,000 MG in sodium chloride 0.9% (plus) 50 ML 100 MG IV (12:25)
[2020-10-28] MEDS: HYDROcodone-acetaminophen 10-325 mg Tablet 1 TAB PO ×2 (12:32→23:18)
[2020-10-28] MEDS: sodium chloride 0.9% 1,000 ML 30 ML IV (13:43)
[2020-10-28] MEDS: clindamycin 600 MG/50 ML PREMIX 100 MG IV (14:03)
--- NOTE | 2020-10-28 14:49 | P.ANESASSM_ITS ---
Pre-Anesthetic Assessment Pre-Anesthetic Assessment: Height/Weight: Height 1.75 m Weight 90.718 kg Temp Pulse Resp BP Pulse Ox 98.7 F 70 18 121/81 96 10/28/20 11:15 10/28/20 13:20 10/28/20 13:20 10/28/20 13:20 10/28/20 13:20 Proposed Procedure: Operation Date: 10/28/20 14:15 Proposed Procedures p Spinal Fusion - T9-L2 Spinal Fusion & T12 Decompression(Not Applicable) - Cristian Stoll, DO Was Beta Sandie taken within 24 hours: N/A Was Clonidine taken within 24 hours: N/A Last intake: Intake Last Liquid Date 10/27/20 Last Liquid Time 10:00 Last Solid Date 10/27/20 Last Solid Time 06:00 Social: Social History: No alcohol and No tobacco Exam: Pre-Anes Outpt Exam: alert, oriented x 3, clear to auscultation bilaterally and regular rate & rhythm Airway: Submandibular: WNL Cervical ROM: WNL MP: 2 Dentition: Loose Additional comments: Poor dentition, multiple loose and chipped Metabolic: Metabolic: Thyroid Musc/skel: Musc/skel: Lower Back Pain Comments: chronic pain/opioid Neuropsych: Neuropsych: Anxiety, Deficit, Depression and RAMIREZ Anesthetic Plan: ASA status: 3 Anesthesia: General Risk of > 500 ml blood loss (7ml/kg in children): No Meds/Allergies Current Medications: Current Medications Generic Name Dose Route Start Last Admin Trade Name Freq PRN Reason Stop Dose Admin Acetaminophen 650 mg 10/27/20 19:58 10/28/20 04:08 Acetaminophen 32 5 Mg Tablet PO 650 mg Q6H PRN Administration Mild/Mod Pain Or Temp >/= 101 Hydrocodone Bitart /Acetaminophen 1 tab 10/28/20 11:37 10/28/20 12:32 Hydrocodone-Acet aminophen 10-325 M g Tablet PO 1 tab QID PRN Administration pain Baclofen 20 mg 10/27/20 21:34 10/28/20 04:08 Baclofen 10 Mg T ablet PO 20 mg QID PRN Administration spasms Docusate Sodium 100 mg 10/27/20 20:40 10/28/20 08:40 Docusate Sodium 100 Mg Capsule PO 100 mg DAILY VERONICA Administration Duloxetine HCl 60 mg 10/28/20 09:00 10/28/20 08:39 Duloxetine 30 Mg Capsule PO 60 mg DAILY VERONICA Administration Sodium Chloride 1,000 mls @ 75 ml s/hr 10/27/20 20:00 10/28/20 10:32 Sodium Chloride 0.9% IV 75 mls/hr .[id number] VERONICA Administration Ceftriaxone Sodium 1,000 mg/ 50 mls @ 100 mls/ hr 10/28/20 12:00 10/28/20 12:25 Sodium Chloride IV 100 mls/hr Q24H VERONICA Administration Protocol Sodium Chloride 1,000 mls @ 30 ml s/hr 10/28/20 13:45 10/28/20 13:43 Sodium Chloride 0.9% IV 10/29/20 13:44 30 mls/hr .Q24H VERONICA Administration Levothyroxine Sodi um 50 mcg 10/28/20 09:00 10/28/20 08:40 Levothyroxine 50 Mcg Tablet PO 50 mcg DAILY VERONICA Administration Morphine Sulfate 2 mg 10/27/20 20:26 10/28/20 12:20 Morphine 4 Mg/Ml Sdv 1 Ml IVP 2 mg Q4H PRN Administration MODERATE PAIN Oxybutynin Chlorid e 10 mg 10/28/20 09:00 10/28/20 08:39 Oxybutynin 5 Mg Tablet PO 10 mg DAILY VERONICA Administration Oxycodone HCl 5 mg 10/27/20 19:58 10/28/20 08:39 Oxycodone 5 Mg I r Tab/Cap PO 5 mg Q6H PRN Administration SEVERE PAIN Propranolol HCl 40 mg 10/28/20 09:00 10/28/20 08:39 Propranolol 40 M g Tablet PO 40 mg BID VERONICA Administration Topiramate 25 mg 10/28/20 09:00 10/28/20 08:43 Topiramate 25 Mg Tablet PO 25 mg DAILY VERONICA Administration Verapamil HCl 120 mg 10/28/20 09:00 10/28/20 09:02 Verapamil 80 Mg Tablet PO 120 mg DAILY VERONICA Administration PFSH Anesthesia PFSH: Medical History (Updated 10/28/20 @ 11:40 by Yu Fonseca MD) Anxiety and depression Currently on Cymbalta managed by her primary care provider. Chronic hypertension Diagnosed at the age of 14 and controlled on medication managed by primary care provider. Chronic low back pain without sciatica Currently on hydrocodone and baclofen managed by the pain clinic Hypothyroid Currently on levothyroxine managed by PMD No pertinent past medical history Denies: hypertension, diabetes, heart, lung, liver, kidney, thyroid, genital herpes, bleeding problems, or clotting problems. her primary care provider is Dr. Salazar Surgical History History of ankle surgery 2006--LEFT x3. In [place] History of dental surgery tooth extraction Hx of section 03/26/89 S/P breast biopsy 2000-left breast-benign Family History Mother Family history of thyroid problem Thyroid condition Father Brain aneurysm Mother Hypertension Diabetes Denies family history of Colon cancer Ovarian cancer DVT (deep venous thrombosis) Heart disease Breast cancer Suicide Pulmonary embolism Uterine cancer Social History Smoking and tobacco status: never smoked Alcohol intake: current History of recent travel: No Additional social history: - Tobacco Use: Denies current or past use Alcohol Use: Drinks an alcoholic beverage daily. Drug Use: Denies Work/Study Status: Disabled due to chronic back pain Data Anesthesia CBC & Chem 7: 10/27/20 20:05 10/27/20 20:05 Other Labs: Laboratory Results - last 48 hr 10/27/20 10/27/20 10/27/20 18:20 20:05 20:05 WBC 8.0 RBC 4.39 Hgb 13.4 Hct 41.3 MCV 94.1 MCH 30.5 MCHC 32.4 RDW 12.8 Plt Count 251 MPV 10.2 Neut % (Auto) 74.4 Lymph % (Auto) 15.7 [place] % (Auto) 7.6 Eos % (Auto) 1.6 Baso % (Auto) 0.6 Neut # (Auto) 5.95 Lymph # (Auto) 1.3 [place] # (Auto) 0.6 Eos # (Auto) 0.1 Baso # (Auto) 0.1 Nucleated RBC % (auto) 0 Nucleated RBCs # 0.0 Sodium 140 Potassium 4.3 Chloride 103 Carbon Dioxide 26 Anion Gap 15.3 BUN 13 Creatinine 0.5 GFR Calculation 125.0 Glucose 116 H Calculated Osmolality 291 Calcium 9.2 Total Bilirubin 0.3 AST 16 ALT 10 Alkaline Phosphatase 85 Total Protein 7.5 Albumin 4.1 Globulin 3.4 Urine Color Yellow Urine Appearance Sl cloudy A Urine pH [address] [place] 1.005 Urine Protein Neg Urine Glucose (UA) Norm Urine Ketones Negative Urine Blood Trace H Urine Nitrate Negative Urine Bilirubin Neg Urine Urobilinogen Norm Ur Leukocyte Esterase 2+ H Urine RBC 0-4 H Urine WBC >100 H Ur Squamous Epith Cells 25-40 H Amorphous Sediment Not Reportable Urine Bacteria 2+ H Cardiac Studies: No Data to Display
[2020-10-28] MEDS: heparin, porcine 1,000 unit/mL INJ 10 mL 10000 UNIT IRRIGATION (15:03)
--- NOTE | 2020-10-28 18:18 | XR_ITS ---
WS: [id number] Thoracolumbar spine , C-arm fluoroscopy, 10/28/2020 Clinical Data: BACK PAIN Comparison: Lumbar spine, 09/10/2020. Findings: There are bilateral pedicle screws placed at T10-T12 and L1-L2 with connecting rods. The T12 compression fracture is visualized. XR/XR lumbar spine 1V port [id number] Impression: Posterior thoracolumbar fusion.
--- NOTE | 2020-10-28 18:48 | P.OP_ITS ---
Operative Report Date of procedure: October 28, 2020 Pre-op Diagnosis: T12 Burst Fracture Post-op diagnosis: same Procedure Done: 1. T9-L2 PSF 2. T9- L2 Instrumentation 3. T12 laminectomy 4. L1 laminectomy 5. Reduction of T12 Burst fracture 6. Use of autograft from same incision 7. Use of allograft 8. BMA from iliac crest 9. Use of steroeotactic computer navigation of the spine Surgeon: Cristian Stoll Anesthesia: General Estimated blood loss (mL): 500 Condition: stable Disposition: PACU Procedure: 1. T9-L2 PSF 2. T9- L2 Instrumentation 3. T12 laminectomy 4. L1 laminectomy 5. Reduction of T12 Burst fracture 6. Use of autograft from same incision 7. Use of allograft 8. BMA from iliac crest 9. Use of steroeotactic computer navigation of the spine Patient was brought to the operative suite placed in the prone position after undergoing anesthesia and neuro monitoring was attached. Neuro monitoring showed that she had weak motor function in her lower extremities however sensation was intact. Patient was prepped and draped in normal sterile fashion. Skin incision is made from T9-L2. Thoracolumbar fascia was then cut and then subperiosteal dissection was made from T9-L2 from the spinous process down to the transverse processes. Once the exposure was completed then attention was done to placing the pedicle screws. A fiducial was attached to the spinous process of L3. The Capigami C arm was then used to spin the information to the navigation computer. Once this pin was done. Then the use of navigation began. The gearshift probe was used to identify the pedicle. Once the pedicle was identified the gearshift was passed to the screws measured and then the screw was placed. This was repeated at L2 bilaterally L1 bilaterally T11 bilaterally T10 bilaterally and T9 bilaterally. Next attention was brought to taking the bone marrow aspirate. The bone marrow aspirate was taken from the right iliac crest. A region assault kit was used the needle was inserted into the iliac crest. And then the bone marrow aspirate was taken. Bone or aspirate was mixed with the allograft and autograft. Once all the screws were placed attention was then brought to performing the laminectomy. Laminectomy was performed at T12 and L1 to completely decompress the thecal sac and conus of the spinal cord. Once this was identified. The laminectomies form using high-speed bur curved curettes and rondure Kerrisons. The dura was significantly bruised and compressed. As the dura was decompressed the pulse of the dura began to come back. Once the laminectomy at T12 was completed L1 was completed in order to get a complete decompression of the thecal sac. A downgoing curette was then used to tamp the fragments anteriorly. Rods were then connected to the screws initially at L1-L2 bilaterally and then T11 bilaterally. Distractors were then placed to distract the fracture and reduce the fracture. Once this was distracted the end caps were torqued down. AP lateral fluoroscopy ensured the fracture was reduced. It had a significant reduction compared to the CT scan. The jef was then attached to T9-T10 bilaterally. Once all screws were torqued down. Attention was then brought to performing the decortication of the lamina and T piece of T9-T10 and T11. And then the transverse processes of L1 and L2 were decorticated along with the transverse process of T12. The laminectomy bone and allograft which was osteoamp were packed in the gutters. And the lamina. Once this was all packed. The wounds were irrigated prior to placing the bone graft. A Hemovac drain was placed in the wound was then closed with Stratus fix Vicryl and 2 oh strata fix. And the skin was closed with nylon and the drain was sewn in. Sterile dressings were applied and patient was transferred to the PACU in stable condition.
--- NOTE | 2020-10-28 18:57 | P.PCN_ITS ---
PACU note PACU note: VSS, Good respiratory effort, report to LENS MOLD SETTER Post-Anesthesia Exam: awake
--- NOTE | 2020-10-28 18:57 | PM.PACU ---
PACU note PACU note: VSS, Good respiratory effort, report to [employer] Post-Anesthesia Exam: awake
--- NOTE | 2020-10-28 19:42 | ANE.PACU2 ---
Inpatient post-anesthesia follow up: Airway intact: Yes Vital signs: Temperature 99.6 F Pulse Rate [Monito r] 77 Pulse Rate 92 Respiratory Rate 19 Blood Pressure [Le ft Arm] 146/70 Blood Pressure 91/74 Pulse Oximetry 95 Oxygen Delivery Me thod Nasal Cannula Oxygen Flow Rate 2 Fraction of Inspir ed Oxygen Hydration adequate: Yes Nausea and vomiting: No Pain level: 3 Mental status: Baseline
[2020-10-28] MEDS: clindamycin 900 MG/50 ML PREMIX 100 MG IV (21:52)
[2020-10-29] VITALS (14 sets, daily range): BP systolic 90–104; BP diastolic 56–74; PULSE 78–112; RESP 14–94; TEMP 36.5–37.4; O2SAT 89–98
[2020-10-29] MEDS: oxyCODONE 5 mg IR Tab/Cap PO ×2 (01:05→22:15)
[2020-10-29] MEDS: baclofen 10 mg Tablet 20 MG PO ×2 (03:03→22:22)
[2020-10-29] MEDS: HYDROcodone-acetaminophen 5-325 mg Tablet PO (04:55)
--- NOTE | 2020-10-29 06:04 | PM.PN ---
Subjective Subjective: Interval history: Patient complaint pain now her blood pressure is low so cannot give her pain meds. Vitals/I&O/Wt Last Vital Signs Temp 97.7 F 10/29/20 04:00 Pulse 112 H 10/29/20 04:00 Resp 18 10/29/20 04:00 BP 90/64 10/29/20 04:00 Pulse Ox 92 10/29/20 04:00 10/28/20 10/28/20 10/29/20 14:59 22:59 06:59 Intake Total 1006.25 / 1006.25 550 / 1556.25 Output Total 700 / 700 200 / 900 Balance 1006.25 / 1006.25 -150 / 856.25 -200 / 656.25 Weight last 48 hrs Weight 200 lb Physical Exam Narrative: EXAM NARRATIVE: 5 5 strength in lower extremities sensation intact. Improved from yesterday. Urinary Catheter Management^: Portillo: Cath Placed During This Visit: yes Reason for Continuing Indwelling Catheter: Perioperative Use in Selected Surgeries Urinary Catheter Date of Insertion: 10/27/20 Urinary Catheter Time of Insertion: 18:30 Data : 10/27/20 20:05 10/27/20 20:05 A&P Assessment and plan (1) Spinal cord compression: Postop day #1 T9-L2 posterior spine fusion. Up with physical therapy today. Leave drain in. Status: Acute Attestations Medical Necessity Statement*: Pain control Coding Level of Care Code Acute Supervisor Pigment Making for Jade Gracia Diagnoses Spinal cord compression G95.20
[2020-10-29 06:22] LABS: Basophils % 0.1 %; Hematocrit 30.6 % (37.0-47.0); Hemoglobin 9.4 g/dL (11.5-15.3); Lymphocytes % 10.5 %; Mean Corpuscular HGB Conc 30.7 g/dL (30.0-36.0); Mean Corpuscular Hemoglobin 30.1 pg (28.0-34.0); Mean Corpuscular Volume 98.1 fL (81-99); Mean Platelet Volume 10.8 fL (7.4-10.4); Monocytes # 0.7 10^3/uL (0.2-0.9); Monocytes % 7.5 %; Neutrophils # 7.88 10^3/uL (1.8-7.7); Neutrophils % 81.1 %; Nucleated Red Blood Cells % 0 %; Platelet Count 242 10^3/cmm (130-400); Red Blood Count 3.12 10^6/uL (4.1-5.3); Red Cell Distribution Width 13.1 % (12.1-15.1); White Blood Count 9.7 10^3/uL (4.0-10.0)
[2020-10-29] MEDS: clindamycin 900 MG/50 ML PREMIX 100 MG IV ×2 (06:45→13:55)
[2020-10-29] MEDS: enoxaparin 40 mg/0.4 mL Syringe SUBCUT (06:49)
[2020-10-29] MEDS: HYDROcodone-acetaminophen 10-325 mg Tablet 1 TAB PO ×3 (07:49→19:59)
[2020-10-29] MEDS: sodium chloride 0.9% 1,000 ML 75 ML IV ×2 (08:34→22:26)
[2020-10-29] MEDS: duloxetine 30 mg Capsule 60 MG PO (08:35)
[2020-10-29] MEDS: topiramate 25 mg Tablet PO (08:36)
[2020-10-29] MEDS: levothyroxine 50 mcg Tablet PO (08:36)
[2020-10-29] MEDS: docusate sodium 100 mg Capsule PO (08:36)
[2020-10-29] MEDS: oxybutynin 5 mg Tablet 10 MG PO (08:36)
--- NOTE | 2020-10-29 10:41 | PC.NUTR ---
Nutrition assessment triggered d/t MST score 4 for wt loss and decreased appetite. Significant unintentional weight loss noted. No po intake since admission except 5% breakfast this AM per chart. Recommend addition of Ensure Clear supplement for additional 240 kcal and 8 gr protein per serving. Notified Dr. Fonseca, who agreed. Have entered verbal order. See RD assessment for further details.
[2020-10-29] MEDS: cefTRIAXone 1,000 MG in sodium chloride 0.9% (plus) 50 ML 100 MG IV (11:28)
--- NOTE | 2020-10-29 14:42 | P.PN_ITS ---
Subjective Subjective: Interval history: Status post reduction of T12 burst fracture, T12-L1 laminectomy, T9-L2 instrumentation yesterday. Tolerated procedure well. No immediate periop complications. Reports some pain at surgical site today, however this is improved over last night. She was able to stand and walk for short steps with physical therapy today, feels as if her lower extremity s trength is improving. Medications: Reviewed: Yes Vitals/I&O/Wt Last Vital Signs Temp 98.8 F 10/29/20 11:24 Pulse 108 H 10/29/20 13:02 Resp 18 10/29/20 13:02 BP 104/70 10/29/20 11:24 Pulse Ox 95 10/29/20 13:02 10/28/20 10/29/20 10/29/20 22:59 06:59 14:59 Intake Total 550 / 1606.25 1000 / 2606.25 700 / 700 Output Total 700 / 700 490 / 1190 140 / 140 Balance -150 / 906.25 510 / 1416.25 560 / 560 Weight last 48 hrs Weight 90.718 kg Physical Exam Narrative: EXAM NARRATIVE: GEN: Awake, alert and oriented, no acute distress CVS: S1S2 N RS: CTA B/L Abd: Soft, nt/nd , bs+ ext: Postop surgical distressing with Hemovac in place over mid back, not open for exam today Urinary Catheter Management^: Portillo: Cath Placed During This Visit: yes Reason for Continuing Indwelling Catheter: Perioperative Use in Selected Surgeries Urinary Catheter Date of Insertion: 10/27/20 Urinary Catheter Time of Insertion: 18:30 Data : 10/29/20 05:39 10/27/20 20:05 A&P Assessment and plan (1) Compression fracture: With associated signs of spinal cord compression including numbness, garfield bility to walk, bowel and bladder incontinence Status post decompressive surgery on October 28, 2020, pain is currently controlled. Patient reports improving strength in her lower extremities Encourage PT OT Status: Acute (2) Chronic hypertension: Continue Verapamil Status: Acute (3) Anxiety and depression: on duloxetine Status: Acute (4) Chronic pain disorder: Status: Chronic (5) UTI (urinary tract infection): start Ceftraixone, d/c macrobid + UA, urine cx ordered Status: Acute (6) Constipation: add colace Status: Acute (7) Urinary retention: Portillo in place Status: Acute (8) Generalized headaches: topiramate, verapamil Status: Acute (9) Hypothyroid: on thyroid replacement Status: Acute (10) Spinal cord compression: Plan for decompressive surgery today Status: Acute Additional A&P Information Gastritis: Likely steroid induced, start Protonix 40 mg p.o. daily DVT prophylaxis: Lovenox Full code Attestations Medical Necessity Statement*: Postop day 1 from spinal decompressive surgery, needs ongoing postoperative care, therapy assessments, wound care, optimization of pain management Coding Level of Care Code Acute Casting Wheel Operator Helper for Chg Fwd Diagnoses Compression fracture Chronic hypertension I10 Anxiety and depression F41.9; F32.9 Chronic pain disorder G89.4 UTI (urinary tract infection) N39.0 Constipation K59.00 Urinary retention R33.9 Generalized headaches R51.9 Hypothyroid E03.9 Spinal cord compression G95.20
[2020-10-29] MEDS: propranolol 40 mg Tablet PO (18:18)
[2020-10-30] VITALS (10 sets, daily range): BP systolic 91–109; BP diastolic 52–64; PULSE 75–128; RESP 14–20; TEMP 36.7–37.7; O2SAT 91–100
[2020-10-30] MEDS: acetaminophen 325 mg Tablet 650 MG PO (03:52)
[2020-10-30] MEDS: morphine 4 mg/mL SDV 1 mL 2 MG IVP ×2 (05:48→21:06)
[2020-10-30] MEDS: enoxaparin 40 mg/0.4 mL Syringe SUBCUT (05:51)
--- NOTE | 2020-10-30 07:08 | P.PN_ITS ---
Subjective Subjective: Interval history: patient resting comfortably Vitals/I&O/Wt Last Vital Signs Temp 98.0 F 10/30/20 04:05 Pulse 75 10/30/20 04:05 Resp 18 10/30/20 05:48 BP 101/60 10/30/20 04:05 Pulse Ox 100 10/30/20 04:05 10/29/20 10/30/20 10/30/20 22:59 06:59 14:59 Intake Total 1480 / 2230 Output Total 700 / 840 400 / 1240 Balance 780 / 1390 -400 / 990 Physical Exam Narrative: EXAM NARRATIVE: patient resting in bed just got morphine Drain put out 100 Urinary Catheter Management^: Lawson: Cath Placed During This Visit: yes Reason for Continuing Indwelling Catheter: Acute Urinary Retention or Obstruction Urinary Catheter Date of Insertion: 10/27/20 Urinary Catheter Time of Insertion: 18:30 Data : 10/29/20 05:39 10/27/20 20:05 A&P Assessment and plan (1) Spinal cord compression: POD#2 T9-L2 PSF Up with PT D/C drain D/C lawson d/c planning to skilled nursing Status: Acute Attestations Medical Necessity Statement*: pain control Coding Level of Care Code Acute Merchandise Executive for Manuelg Fwd Diagnoses Spinal cord compression G95.20
[2020-10-30] MEDS: HYDROcodone-acetaminophen 5-325 mg Tablet PO ×3 (09:00→19:22)
[2020-10-30] MEDS: levothyroxine 50 mcg Tablet PO (09:01)
[2020-10-30] MEDS: pantoprazole DR 40 mg Tablet PO (09:01)
[2020-10-30] MEDS: topiramate 25 mg Tablet PO (09:03)
[2020-10-30] MEDS: oxybutynin 5 mg Tablet 10 MG PO (09:03)
[2020-10-30] MEDS: docusate sodium 100 mg Capsule PO (09:03)
[2020-10-30] MEDS: duloxetine 30 mg Capsule 60 MG PO (09:03)
[2020-10-30] MEDS: cefTRIAXone 1,000 MG in sodium chloride 0.9% (plus) 50 ML 100 MG IV (11:34)
[2020-10-30] MEDS: sodium chloride 0.9% 1,000 ML 75 ML IV (11:34)
--- NOTE | 2020-10-30 17:01 | PM.PN ---
Subjective Subjective: Interval history: no acte interim events , tmax overnight at 99.9 , Portillo and drain removed, participates with PT Medications: Reviewed: Yes Vitals/I&O/Wt Last Vital Signs Temp 98.8 F 10/30/20 16:00 Pulse 78 10/30/20 16:00 Resp 18 10/30/20 16:00 BP 104/60 10/30/20 16:00 Pulse Ox 97 10/30/20 16:00 10/30/20 10/30/20 10/30/20 06:59 14:59 22:59 Intake Total 1105 / 1105 Output Total 400 / 1240 300 / 300 875 / 1175 Balance -400 / 990 805 / 805 -875 / -70 Physical Exam Narrative: EXAM NARRATIVE: GEN: Awake, alert and oriented, no acute distress CVS: S1S2 N RS: CTA B/L Abd: Soft, nt/nd , bs+ ext: Postop surgical distressing with Hemovac in place over mid back, not open for exam today Urinary Catheter Management^: Portillo: Cath Placed During This Visit: yes Reason for Continuing Indwelling Catheter: Acute Urinary Retention or Obstruction Urinary Catheter Date of Insertion: 10/27/20 Urinary Catheter Time of Insertion: 18:30 Data : 10/29/20 05:39 10/27/20 20:05 Micro: Microbiology 10/28/20 23:08 Urine Culture - Final Urine Catheterized A&P Assessment and plan (1) Compression fracture: With associated signs of spinal cord compression including numbness, inability to walk, bowel and bladder incontinence Status post decompressive surgery on October 28, 2020, pain is currently controlled. Patient reports improving strength in her lower extremities Encourage PT OT Status: Acute (2) Chronic hypertension: Continue Verapamil Status: Acute (3) Anxiety and depression: on duloxetine Status: Acute (4) Chronic pain disorder: Status: Chronic (5) UTI (urinary tract infection): start Ceftraixone, d/c macrobid + UA, urine cx negative Status: Acute (6) Constipation: add colace Status: Acute (7) Urinary retention: Portillo in place , removed today, bladder scan prn Status: Acute (8) Generalized headaches: topiramate, verapamil Status: Acute (9) Hypothyroid: on thyroid replacement Status: Acute (10) Spinal cord compression: Plan for decompressive surgery today Status: Acute Additional A&P Information Gastritis: Likely steroid induced, started Protonix 40 mg p.o. daily Sinus tachycardia: increase verapamil to 180mg po daily Fever t max 99.9F, likely to be post op fever, check CXR to evalute for atelacasis, encourage spirometry , currently already on CTX for UTI DVT prophylaxis: Lovenox disposition: will benefit from acute rehab Full code Attestations Medical Necessity Statement*: post op care , iv abx, dipsosition planning Coding Level of Care Code Acute Electroplating Sales Representative for Chg Fwd Diagnoses Compression fracture Chronic hypertension I10 Anxiety and depression F41.9; F32.9 Chronic pain disorder G89.4 UTI (urinary tract infection) N39.0 Constipation K59.00 Urinary retention R33.9 Generalized headaches R51.9 Hypothyroid E03.9 Spinal cord compression G95.20
--- NOTE | 2020-10-30 17:02 | XR_ITS ---
WS: [id number] Portable AP supine chest, 10/30/2020 Clinical Data: atelectasis vs pneumonia Comparison: Portable chest, 12/14/2017. Findings: No nodules, masses or effusions are seen. The heart is normal. The pulmonary vascularity is not increased. No pneumonia or pneumothorax is seen. The aortic arch and descending aorta are tortuo us. The patient is had a posterior thoracolumbar fusion. XR/XR chest 1V portable [id number] Impression: Atherosclerosis.
[2020-10-30] MEDS: baclofen 10 mg Tablet 20 MG PO (20:58)
[2020-10-31] VITALS (19 sets, daily range): BP systolic 90–124; BP diastolic 48–79; PULSE 67–84; RESP 17–20; TEMP 36.7–37.4; O2SAT 93–98
[2020-10-31] MEDS: sodium chloride 0.9% 1,000 ML 75 ML IV (00:54)
[2020-10-31] MEDS: HYDROcodone-acetaminophen 5-325 mg Tablet PO ×2 (01:45→06:05)
[2020-10-31] MEDS: SUMAtriptan 25 mg Tablet 50 MG PO (02:00)
[2020-10-31 05:16] LABS: Basophils % 0.3 %; Eosinophils # 0.1 10^3/uL (0.0-0.8); Eosinophils % 0.9 %; Hematocrit 21.1 % (37.0-47.0); Hemoglobin 6.8 g/dL (11.5-15.3); Lymphocytes # 1.1 10^3/uL (0.8-4.8); Lymphocytes % 16.7 %; Mean Corpuscular HGB Conc 32.2 g/dL (30.0-36.0); Mean Corpuscular Hemoglobin 31.3 pg (28.0-34.0); Mean Corpuscular Volume 97.2 fL (81-99); Mean Platelet Volume 10.4 fL (7.4-10.4); Monocytes # 0.6 10^3/uL (0.2-0.9); Monocytes % 9.4 %; Neutrophils # 4.74 10^3/uL (1.8-7.7); Neutrophils % 72.2 %; Nucleated Red Blood Cells % 0 %; Platelet Count 186 10^3/cmm (130-400); Red Blood Count 2.17 10^6/uL (4.1-5.3); Red Cell Distribution Width 12.7 % (12.1-15.1); White Blood Count 6.6 10^3/uL (4.0-10.0)
[2020-10-31 05:42] LABS: Alanine Aminotransferase 7 U/L (0-33); Albumin Level 2.6 g/dL (3.5-5.2); Alkaline Phosphatase 51 IU/L (35-105); Anion Gap 9.1 (5-19); Aspartate Amino Transferase 10 U/L (0-32); Blood Urea Nitrogen 5 mg/dL (8-23); Calcium 7.4 mg/dL (8.5-10.5); Carbon Dioxide 25 mmol/L (22-29); Chloride 109 mmol/L (98-107); Globulin 2.3 g/dL (1.3-4.6); Glomerular Filtration Rate 161.7 mL/min (90-130); Glucose 109 mg/dL (65-115); Osmolality Calculated 288 mOsm/kg (285-295); Potassium 3.1 mmol/L (3.5-5.1); Sodium 140 mmol/L (136-145); Total Bilirubin 0.2 mg/dL (0.15-1.2); Total Protein 4.9 g/dL (6.6-8.7)
[2020-10-31 05:44] LABS: Creatinine Clr Calc Pharmacy 174.9749
[2020-10-31] MEDS: enoxaparin 40 mg/0.4 mL Syringe SUBCUT (05:55)
--- NOTE | 2020-10-31 07:56 | P.PN_ITS ---
Subjective Subjective: Interval history: Patient's pain is controlled she is up walking. Vitals/I&O/Wt Last Vital Signs Temp 98.1 F 10/31/20 07:54 Pulse 76 10/31/20 07:54 Resp 17 10/31/20 07:54 BP 124/79 10/31/20 07:54 Pulse Ox 93 10/31/20 07:54 10/30/20 10/31/20 10/31/20 22:59 06:59 14:59 Intake Total 290 / 1395 1360 / 2755 Output Total 875 / 1175 850 / 2025 Balance -585 / 220 510 / 730 Physical Exam Narrative: EXAM NARRATIVE: Patient is resting comfortably in bed. At this point her incision is clean dry and intact dressing is Urinary Catheter Management^: Portillo: Cath Placed During This Visit: yes, but has since been removed by the nurse Reason for Continuing Indwelling Catheter: Acute Urinary Retention or Obstruction Urinary Catheter Date of Insertion: 10/27/20 Urinary Catheter Time of Insertion: 18:30 Date Urinary Catheter Removed: 10/30/20 Time Urinary Catheter Discontinued: 09:00 Data : 10/31/20 04:44 10/31/20 04:44 Micro: Microbiology 10/28/20 23:08 Urine Culture - Final Urine Catheterized A&P Assessment and plan (1) Spinal cord compression: Postop day 3 from T9-L2 posterior spine fusion with decompression. Hemo-globin is 6.8 I will defer to hospitalist if they want to treat this. Status: Acute Attestations Medical Necessity Statement*: low HB Coding Level of Care Code Acute Assembler Dc Field Ring for Jade Gracia Diagnoses Spinal cord compression G95.20
--- NOTE | 2020-10-31 08:29 | PC.OT ---
OT note: Noted pt's hgb is 6.8 on chart review. Will hold at this time.
[2020-10-31] MEDS: propranolol 40 mg Tablet PO ×2 (08:45→16:27)
[2020-10-31] MEDS: docusate sodium 100 mg Capsule PO (08:46)
[2020-10-31] MEDS: duloxetine 30 mg Capsule 60 MG PO (08:46)
[2020-10-31] MEDS: oxybutynin 5 mg Tablet 10 MG PO (08:46)
[2020-10-31] MEDS: levothyroxine 50 mcg Tablet PO (08:46)
[2020-10-31] MEDS: pantoprazole DR 40 mg Tablet PO (08:46)
[2020-10-31] MEDS: topiramate 25 mg Tablet PO (08:46)
[2020-10-31] MEDS: oxyCODONE 5 mg IR Tab/Cap PO (10:37)
[2020-10-31] MEDS: baclofen 10 mg Tablet 20 MG PO ×2 (11:52→21:33)
[2020-10-31] MEDS: oxyCODONE-APAP 5-325 mg Tablet 1 TAB PO ×3 (11:52→21:32)
[2020-10-31] MEDS: cefTRIAXone 1,000 MG in sodium chloride 0.9% (plus) 50 ML 100 MG IV (11:54)
--- NOTE | 2020-10-31 15:21 | P.PN_ITS ---
Subjective Subjective: Interval history: Hb dropped to 6.8 today, c.o generalized weakness. hemodynamically stable, able to urinate, pain continues to improve. T max 99.3F Medications: Reviewed: Yes Vitals/I&O/Wt Last Vital Signs Temp 99.3 F 10/31/20 14:18 Pulse 75 10/31/20 14:18 Resp 18 10/31/20 14:18 BP 92/53 10/31/20 14:18 Pulse Ox 96 10/31/20 14:18 10/31/20 10/31/20 10/31/20 06:59 14:59 22:59 Intake Total 1360 / 2755 1010 / 1010 Output Total 850 / 2025 400 / 400 Balance 510 / 730 610 / 610 Physical Exam Narrative: EXAM NARRATIVE: GEN: Awake, alert and oriented, no acute distress CVS: S1S2 N RS: CTA B/L Abd: Soft, nt/nd , bs+ Urinary Catheter Management^: Portillo: Cath Placed During This Visit: yes, but has since been removed by the nurse Reason for Continuing Indwelling Catheter: Acute Urinary Retention or Obstruction Urinary Catheter Date of Insertion: 10/27/20 Urinary Catheter Time of Insertion: 18:30 Date Urinary Catheter Removed: 10/30/20 Time Urinary Catheter Discontinued: 09:00 Data : 10/31/20 04:44 10/31/20 04:44 A&P Assessment and plan (1) Compression fracture: With associated signs of spinal cord compression including numbness, inability to walk, bowel and bladder incontinence Status post decompressive surgery on October 28, 2020, pain is currently controlled. Patient reports improving strength in her lower extremities Encourage PT OT Status: Acute (2) Chronic hypertension: Status: Acute (3) Anxiety and depression: on duloxetine Status: Acute (4) Chronic pain disorder: Status: Chronic (5) UTI (urinary tract infection): start Ceftraixone, d/c macrobid + UA, urine cx negative Status: Acute (6) Constipation: add colace Status: Acute (7) Urinary retention: Portillo in place , removed today, bladder scan prn Status: Acute (8) Generalized headaches: topiramate, verapamil Status: Acute (9) Hypothyroid: on thyroid replacement Status: Acute (10) Spinal cord compression: Plan for decompressive surgery today Status: Acute (11) Anemia: likely 2/2 acute blood loss transfuse 2 units of PRBC today check FOBT Status: Acute Additional A&P Information Gastritis: Likely steroid induced, started Protonix 40 mg p.o. 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
[2020-10-31] MEDS: potassium chloride ER 20 mEq Tablet 40 MEQ PO (16:01)
[2020-10-31] MEDS: ketorolac 30 mg/mL INJ 15 MG IVP (17:07)
[2020-10-31 18:18] LABS: Hematocrit 26.1 % (37.0-47.0); Hemoglobin 8.6 g/dL (11.5-15.3)
--- NOTE | 2020-10-31 19:31 | PC.NURSE ---
Report to Judy VALDOVINOS and Rubi LEIJA at this time.
[2020-11-01] VITALS (7 sets, daily range): BP systolic 98–110; BP diastolic 62–66; PULSE 64–83; RESP 14–17; TEMP 37.1–37.4; O2SAT 95–97
[2020-11-01] MEDS: morphine 4 mg/mL SDV 1 mL 2 MG IVP (00:34)
[2020-11-01] MEDS: oxyCODONE-APAP 5-325 mg Tablet 1 TAB PO ×3 (02:36→11:56)
[2020-11-01] MEDS: enoxaparin 40 mg/0.4 mL Syringe SUBCUT (06:11)
[2020-11-01 06:13] LABS: Basophils # 0.1 10^3/uL (0.0-0.1); Basophils % 0.8 %; Eosinophils # 0.1 10^3/uL (0.0-0.8); Eosinophils % 2.3 %; Hematocrit 27.7 % (37.0-47.0); Hemoglobin 8.7 g/dL (11.5-15.3); Lymphocytes # 1.4 10^3/uL (0.8-4.8); Lymphocytes % 22.1 %; Mean Corpuscular HGB Conc 31.4 g/dL (30.0-36.0); Mean Corpuscular Hemoglobin 29.9 pg (28.0-34.0); Mean Corpuscular Volume 95.2 fL (81-99); Mean Platelet Volume 10.5 fL (7.4-10.4); Monocytes # 0.6 10^3/uL (0.2-0.9); Monocytes % 9.7 %; Neutrophils # 3.94 10^3/uL (1.8-7.7); Neutrophils % 64.6 %; Nucleated Red Blood Cells % 0 %; Platelet Count 192 10^3/cmm (130-400); Red Blood Count 2.91 10^6/uL (4.1-5.3); Red Cell Distribution Width 13.7 % (12.1-15.1); White Blood Count 6.1 10^3/uL (4.0-10.0)
[2020-11-01 06:26] LABS: Alanine Aminotransferase 7 U/L (0-33); Albumin Level 2.4 g/dL (3.5-5.2); Alkaline Phosphatase 57 IU/L (35-105); Aspartate Amino Transferase 10 U/L (0-32); Blood Urea Nitrogen 5 mg/dL (8-23); Calcium 7.7 mg/dL (8.5-10.5); Carbon Dioxide 23 mmol/L (22-29); Chloride 111 mmol/L (98-107); Globulin 2.8 g/dL (1.3-4.6); Glomerular Filtration Rate 225.4 mL/min (90-130); Glucose 112 mg/dL (65-115); Osmolality Calculated 290 mOsm/kg (285-295); Sodium 141 mmol/L (136-145); Total Bilirubin 0.4 mg/dL (0.15-1.2); Total Protein 5.2 g/dL (6.6-8.7)
[2020-11-01 06:27] LABS: Anion Gap 10.6 (5-19); Potassium 3.6 mmol/L (3.5-5.1)
[2020-11-01] MEDS: baclofen 10 mg Tablet 20 MG PO (06:33)
--- NOTE | 2020-11-01 08:27 | PM.PN ---
Subjective Subjective: Interval history: Complains of pain and difficulty sleeping Vitals/I&O/Wt Last Vital Signs Temp 98.7 F 11/01/20 08:00 Pulse 83 11/01/20 08:00 Resp 14 11/01/20 08:00 BP 102/65 11/01/20 08:00 Pulse Ox 95 11/01/20 08:00 10/31/20 11/01/20 11/01/20 22:59 06:59 14:59 Intake Total 2550 / 3610 Output Total 200 / 600 200 / 800 Balance 2350 / 3010 -200 / 2810 Physical Exam Narrative: EXAM NARRATIVE: Dressing clean and dry. Urinary Catheter Management^: Portillo: Cath Placed During This Visit: yes, but has since been removed by the nurse Reason for Continuing Indwelling Catheter: Acute Urinary Retention or Obstruction Urinary Catheter Date of Insertion: 10/27/20 Urinary Catheter Time of Insertion: 18:30 Date Urinary Catheter Removed: 10/30/20 Time Urinary Catheter Discontinued: 09:00 Data : 11/01/20 05:55 11/01/20 05:55 A&P Assessment and plan (1) Spinal cord compression: Patient progressing slowly with therapy. Lives alone. Will need residential placement. Pain management program outlined by Dr. Stoll. 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
[2020-11-01] MEDS: polyethylene glycol 3350 Pkt 17 gm PO (08:43)
[2020-11-01] MEDS: propranolol 40 mg Tablet PO (08:44)
[2020-11-01] MEDS: duloxetine 30 mg Capsule 60 MG PO (08:44)
[2020-11-01] MEDS: pantoprazole DR 40 mg Tablet PO (08:44)
[2020-11-01] MEDS: oxybutynin 5 mg Tablet 10 MG PO (08:44)
[2020-11-01] MEDS: levothyroxine 50 mcg Tablet PO (08:44)
[2020-11-01] MEDS: topiramate 25 mg Tablet PO (08:44)
[2020-11-01] MEDS: docusate sodium 100 mg Capsule PO (08:44)
--- NOTE | 2020-11-01 10:47 | CT_ITS ---
WS: [id number] CT ABDOMEN PELVIS TECHNIQUE: Noncontrast CT of the abdomen and pelvis with coronal and sagittal reformatted images. CLINICAL INFORMATION: evaluate for abdominal hematoma COMPARISON: CT December 2017 DLP: 1321.[address] scans at [facility] use at least one of these dose optimization techniques: automat ed exposure control; mA and/or kV adjustment per patient size (includes targeted exams where dose is matched to clinical indication); or iterative reconstruction. FINDINGS: Recent postoperative changes pedicle screw fixation with laminectomy defects in the lower thoracic an d upper lumbar spine extending from T9 through L2. Interconnecting rods appear intact. Compression fr acture T12 with mild retropulsion of the posterior cortex. Laminectomy defects at this level. No evid ence of retroperitoneal hematoma. Mild edema in the dorsal subcutaneous soft tissues. Subsegmental atelectasis in the lung bases. Noncontrast liver is normal. Fluid distended gallbladder with prominent calculus . Calculus measures 15 mm. Adrenal glands are normal. Noncontrast spleen is normal. Normal GE junction. No evidence of high-grad e small or large bowel obstruction. No hydronephrosis in either kidney. No obstructing renal or urete ral calculi. Distended bladder. Small amount of air in the bladder likely due to recent Portillo catheter. Small amou nt of free fluid in the pelvis. Mild constipation in the right colon and transverse colon. CT/CT abdomen pelvis wo con [id number] IMPRESSION: 1. No evidence of retroperitoneal hematoma or drainable fluid collection. 2. Recent postoperative changes pedicle screw fixation with interconnecting ro ds and laminectomy defects. Hardware extends from T9 through L2. Laminectomy de fects at T12 with retropulsed compression fracture. 3. Mild constipation right colon and transverse colon. 4. Small amount of free fluid in the pelvis. 5. Urine distended bladder. 6. Fluid distended gallbladder with calculus measuring 15 mm similar to 2018. No significant gallbladder wall thickening or pericholecystic fluid.
--- NOTE | 2020-11-01 11:12 | PM.DCS ---
Discharge Providers Date of Admission: 10/27/20 19:55 Date of Discharge: November 01, 2020 Attending Provider at Admission: Nasim Kelly MD Attending Provider at Discharge: Yu Fonseca MD Primary Care Provider: Charity Salazar MD Diagnoses at Discharge Discharge Diagnosis (1) Spinal cord compression: Status: Acute (2) Spinal stenosis: Status: Acute Qualifiers: Spinal region: thoracolumbar Qualified Code(s): M48.05 - Spinal stenosis, thoracolumbar region (3) Anemia: Status: Acute (4) Urinary retention: Status: Acute (5) UTI (urinary tract infection): Status: Acute (6) Compression fracture: Status: Acute (7) Chronic hypertension: Status: Acute Permanent problem details: Diagnosed at the age of 14 and controlled on medication managed by primary care provider. (8) Anxiety and depression: Status: Acute Permanent problem details: Currently on Cymbalta managed by her primary care provider. Reason for Visit Reason for Visit: BACK PAIN Hospital Course Hospital Course Niki Agosto is a 60 year old female with pmh of compression fracture ,chronic pain presnted to ER with worsening back pain for two weeks, constipation and urinary retention 2-3 days prior to admission. She has been following with pain management and spine surgery, had been on outpatient steroids with progressive symptoms, In the ER she had a CT lumbar spine that showed progression fracture and stenosis. Hospital course as below: 1) Compression fracture: With associated signs of spinal cord compression including numbness, inability to walk, bowel and bladder incontinence Status post decompressive surgery on October 28, 2020. Patient reports improving strength in her lower extremities. Portillo removed and patient able top urinate. No more fecal incontinence noted/. Partcipating with PT OT. Hydrocodone/APAP, toradol and morphine prn for pain control Given HB drop and complaints of persisting pain she underwent CT abdomen to r/o retroperitoneal hematoma, no acute abnormalities were detected on the CT scan. (2) Chronic hypertension:BP remained well controlled (3) Anxiety and depression: on duloxetine (5) UTI (urinary tract infection): Treated with 5 days of empiric Ceftraixone + UA, urine cx negative (6) Constipation: add colace, miralax (7) Urinary retention: Portillo in place on admission, removed post op, patient able to urinate without issues. 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 Urinary Catheter Management^: Portillo: Cath Placed During This Visit: yes, but has since been removed by the nurse Reason for Continuing Indwelling Catheter: Acute Urinary Retention or Obstruction Urinary Catheter Date of Insertion: 10/27/20 Urinary Catheter Time of Insertion: 18:30 Date Urinary Catheter Removed: 10/30/20 Time Urinary Catheter Discontinued: 09:00 Discharge Data Data Completed and Pending: Completed Studies During Hospitalization Category Date Time Status CT lumbar spine w o con* [id number] Urgen t Cat Scan 10/27/20 17:59 Completed XR chest 1V mayra ble [id number] Routine Exams 10/30/20 17:02 Completed XR lumbar spine 1 V port [id number] Routi ne Exams 10/28/20 18:18 Completed Pending at discharge Category Date Time Status CT abdomen pelvis wo con [id number] Stat Cat Scan 11/01/20 10:47 Ordered C-arm Fluoroscopy [id number] Routine Exams 10/28/20 13:54 Taken Immunochemical Fe abigail OCB Routine Lab 10/31/20 15:39 Uncollected Labs from last 24 hours 11/01/20 11/01/20 10/31/20 05:55 05:55 18:10 WBC 6.1 RBC 2.91 L Hgb 8.7 L 8.6 L Hct 27.7 L 26.1 L MCV 95.2 MCH 29.9 MCHC 31.4 RDW 13.7 Plt Count 192 MPV 10.5 H Neut % (Auto) 64.6 Lymph % (Auto) 22.1 [place] % (Auto) 9.7 Eos % (Auto) 2.3 Baso % (Auto) 0.8 Neut # (Auto) 3.94 Lymph # (Auto) 1.4 [place] # (Auto) 0.6 Eos # (Auto) 0.1 Baso # (Auto) 0.1 Nucleated RBC % (a uto) 0 Nucleated RBCs # 0.0 Sodium 141 Potassium 3.6 Chloride 111 H Carbon Dioxide 23 Anion Gap 10.6 BUN 5 L Creatinine 0.3 L GFR Calculation 225.4 H Glucose 112 Calculated Osmolal ity 290 Calcium 7.7 L Total Bilirubin 0.4 AST 10 ALT 7 Alkaline Phosphata se 57 Total Protein 5.2 L Albumin 2.4 L Globulin 2.8 Blood Type Rho(D) Type Antibody Screen Crossmatch 10/31/20 10:05 WBC RBC Hgb Hct MCV MCH MCHC RDW Plt Count MPV Neut % (Auto) Lymph % (Auto) [place] % (Auto) Eos % (Auto) Baso % (Auto) Neut # (Auto) Lymph # (Auto) [place] # (Auto) Eos # (Auto) Baso # (Auto) Nucleated RBC % (a uto) Nucleated RBCs # Sodium Potassium Chloride Carbon Dioxide Anion Gap BUN Creatinine GFR Calculation Glucose Calculated Osmolal ity Calcium Total Bilirubin AST ALT Alkaline Phosphata se Total Protein Albumin Globulin Blood Type O Positive Rho(D) Type Positive / 4+ Antibody Screen Negative Crossmatch See Detail Vitals: Last Vital Signs Temp 98.7 F 11/01/20 08:00 Pulse 83 11/01/20 08:00 Resp 14 11/01/20 08:00 BP 102/65 11/01/20 08:00 Pulse Ox 95 11/01/20 08:00 Discharge Plan Discharge Patient Disposition: Xfer SNF Condition: Stable Prescriptions: New pantoprazole 40 mg Tablet,Delayed Release (Dr/Ec) 40 mg PO DAILY 15 Days Qty: 15 RF: 0 Continued oxybutynin chloride 5 mg tablet See Rx Instructions .ROUTE .COMPLEX RF: 0 hydrocodone-acetaminophen 10-325 mg tablet 1 tab PO QID PRN (Reason: pain) 30 Days Qty: 120 RF: 0 baclofen 20 mg tablet 20 mg PO QID PRN (Reason: spasms) 30 Days Qty: 120 RF: 1 levothyroxine 50 mcg capsule 50 mcg PO QDAY RF: 0 topiramate 50 mg tablet See Rx Instructions .ROUTE .COMPLEX RF: 0 propranolol 40 mg tablet 40 mg PO BID RF: 0 sumatriptan succinate 50 mg tablet 50 mg PO .1-2 prn RF: 0 verapamil 120 mg tablet 120 mg PO DAILY RF: 0 duloxetine [Cymbalta] 30 mg capsule,delayed release(DR/EC) 60 mg PO QDAY RF: 0 cholecalciferol (vitamin D3) 5,000 unit tablet,disintegrating See Rx Instructions .ROUTE .COMPLEX RF: 0 topiramate 25 mg tablet See Rx Instructions .ROUTE .COMPLEX RF: 0 clobetasol 0.05 % cream 1 applic TOPICAL BID PRN (Reason: lichen sclerosus) Qty: 30 RF: 0 Discontinued prednisone 20 mg tablet 20 mg PO DAILY Qty: 15 RF: 0 Discharge Orders: Discharge Order (Routine); Ordered 11/01/20 Ordered By: Yu Fonseca Referrals: [facility] [Outside] Discharge Diet: Usual diet Discharge Activity: As per PT/OT instructions Activity Restrictions/Additional Instructions: Thank you for [facility] for your care! The following is a list of instructions, from your provider, to follow upon your discharge to ensure you have the optimal recovery from your recent injury orsurgery. Follow-up care is a renteria part of your treatment and safety. Be sure to make and go to all appointments, and call your doctor if you are having problems. If you do not already have a follow-up appointment made, call Dr. Stoll office in the next 1-3 days to make follow up appointment for 2-3 weeks at [phone]. It is also a good idea to know your test results and keep a list of the medicines you take. Medications will be prescribed for you at your provider's discretion. These medications are to be used as instructed; if they are taken more often that prescribed they will not be refilled early and in most cases will not be refilled at all. > When a refill is needed,you should contact cristina parra 2-3 business days before your prescription runs out. Medications will NOT be refilled by allocation analyst providers after hours! > Many pain medications contain Tylenol (Acetaminophen). Do not consume more than 4,000 mg of Tylenol per day in total with any combination ofmedications. > Pain medications can cause constipation. Please use an over the counter stool softener as directed, while taking pain medications. Consulty our local pharmacist with questions or recommendations on stool softeners. If constipation persists, contact our office or your primary care provider. > While under our care,you are not to receive pain medications or other controlled substances from any other provider unless our office is notified and approves. Any attempts to do so will result in refusal to prescribe any further pain medications and possible dismissal from our practice. ? Your wound and/or dressing should remain clean and dry for 2 days after surgery. On postoperative day 2 (48 hours after your surgery) the dressing (if present) should be removed and it is okay to shower and get the incision wet. Pad dry afterwards. No further dressing should be required from that point on. Do not put any creams or ointments on theincision > It is normal for there to be a small amount of discharge (bloody or blood tinged) present from a surgical wound for the first 1-3days. > The wound should be examined twice a day for signs of infection. Mild redness or bruising is to be expected but indications that an infection maybe starting would include; An increase in redness, swelling, or discharge, a foul odor present around the incision, and/or a fever greater than 101 ?F ? Showering is permitted, however we ask that you do not take a bath, sit in a whirlpool / Jacuzzi, or go swimming for 1 month. For only the first 2 days after surgery, lt wilt be necessary for you to cover your wound/dressing with plastic and tape to keep it dry. ? Walking is essential for the healing process after surgery. We would like you to slowly advance your walking. This should be done on relatively flat clear ground (inside or out) or can be done on a treadmill. Remember this goal does not have to happen all at once, slowly increase your distance and duration. This can be broken into more more than one walk per day as tolerated. Patients who walk as directed after surgery rarely require Physical Therapy. In the unlikely event this issue arises your provider will direct hospital staff to make the appropriate arrangements. ? No lifting over 5 pounds {a gallon of milk) or bending/twisting until further notice. Each of these activities places an unnecessary amount of stress onto the body and can impede the delicate healing process. > Instead of bending at the waist, keep your back straight and bend at the knees. > Instead of twisting your torso, keep your back straight and turn your entire body with your feet. ? You may sleep in any position which makes you comfortable. Many patients find comfort sleeping in a reclining chair. It is not abnormal to have difficulty sleeping for the first several weeks following your surgery. We recommend trying Benadry! or Tylenol PM as directed to help with your sleeping difficulties. Both medications are over the counter and available withoutprescription. ? NO SMOKING!!! Smoking dramatically increases the probability of developing postoperative wound infections. ? Common complaints after lumbar and/or thoracic spine surgery include, but are not limited to: numbness and/or tingling in the legs, pain around the incision and surrounding tissues, muscle spasms, or stiffness of the middle to low back. Contact our office if these symptoms persist or if an acute change occurs. ? No driving for the first 3-5days, and not while taking narcotics [] until seen at your follow-up appointment and cleared. There are no restrictions for riding on short trips, however if you take a longer trip, arrangements should be made to make regular stops to get out of the vehicle and stretch . ? Swelling is an unfortunate event that will take place with any surgery and is the primary source of your postoperative discomfort. While walking and regular approved activities helps control inflammation, there are additional steps you can take to minimizeswelling. > Place ice over the surgical site and surrounding tissue for twenty minutes, followed by applying a low/medium heat (heating pad) for an additional twenty minutes every 1-2 hours as needed for painrelief. > You may use of over the counter anti-inflammatory medications (Ibuprofen, Motrin, Aleve, Advil, etc) as directed on the package label. These types of medicines wm significantly reduce the amount of discomfort you experience after surgery from swelling. It should be noted that if you have and allergy to any of these medications, or a history of ulcers or kidney disease you should consult you primary care provider prior to starting these medications. Discharge Attestations Time Spent in Discharge Care*: greater than 30 min Quality Metrics Clinical Quality Measures During this hospital stay, did patient experience: None Coding Level of Care Code Acute g [facility] note Diagnoses Spinal cord compression G95.20 Spinal stenosis M48.05 Spinal region: thoracolumbar Anemia D64.9 Urinary retention R33.9 UTI (urinary tract infection) N39.0 Compression fracture Chronic hypertension I10 Anxiety and depression F41.9; F32.9
[2020-11-01] MEDS: ketorolac 30 mg/mL INJ 15 MG IVP (11:56)
[2020-11-01] MEDS: cefTRIAXone 1,000 MG in sodium chloride 0.9% (plus) 50 ML 100 MG IV (12:01)
--- NOTE | 2020-11-01 12:22 | PC.CHAP ---
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 visit [] Patient/Family/Request visit [] Outpatient visit [xxx] Follow-up visit [] Physician referral [] Code/Alert [xx] Routine visit [] Staff referral [] Actively dying [] Patient sleeping [] Family support [] [] Out of room [] Palliative care [] [] Receiving care in room [] Pre-surgical visit [] Trauma [] Long length of stay [] ICU visit [] Other: Relational/Emotional Strength [xx] Patient feels connected with others/family/visitors/staff [] Distress [] Loneliness/isolation [] Abandonment Spirituality of Patient [xx] Person of Dayanna [] Attends Catholic of their Dayanna [xx] Believes in Prayer [xx] Reads Bible or Mormonism materials [] There are Spiritual issues to be addressed Chemistry Faculty Member Interventions [xx] Prayer [xx] Active listening [xx] Non-anxious presence [] Spiritual/emotional support [] Crisis/trauma care [] Spiritual counseling [] Bereavement support [] Provided bereavement packet [xx] Provided Bible/devotional materials [] Provided toy/stuffed animal, coloring book to patient or family member [] Provided Communion [] Anointing/Ransom [] Salvation [] Completed spiritual assessment [] Other: Impact on Illness or Injury [] Angry [] Fearful [xx] Anxious [] Often cries [] Exhaustion [] Unable to work [] Unable to attend catholic [xx] Unable to walk/stand [] Unable to read [] Unable to drive [] Unable to eat/drink [] Unable to sleep [xx] Unable to be with family [] Patient intubated [] Other: Summary Patient anticipates 2 - 6 weeks of rehab in a fdc before returning home. She is not looking forward to this at all. She misses here dog and cat, is worried about their care and may not see them for duration of rehab. Family lives in [place] and she wants to be strong enough by April to visit [facility] her daughter is expecting then. She is concerned she may be able to fly by then. Time spent with patient 12 minutes
--- NOTE | 2020-11-01 12:22 | PC.SOCIAL ---
IMM Updated Updated pt on Pg 2 IMM. No questions voiced. Provided pt a copy. Signed, dated, & timed copy in chart.
--- NOTE | 2020-11-01 13:59 | PC.NURSE ---
Report called to Meron VALDOVINOS at this time.
--- NOTE | 2020-11-01 14:44 | PC.NURSE ---
Patient's IVs removed at this time. Patient is A&Ox3. Respirations even and non-labored on room air. Patient used the bathrrom before being assisted into a wheel chair to go to [facility].
== END 2020-11-01 14:00 | disposition intermediate care facility (04) | DRG 460 ==
LOC: ER 18:23 → MEDSURG 20:06
PROVIDERS: Orthopaedic Surgery; Admitting Provider Internal Medicine; Emergency Provider Family Medicine; PCP Internal Medicine; Visit Provider Student in an Organized Health Care Education/Training Program
PROC: 0RG707J Fusion of 2 to 7 Thoracic Vertebral Joints with Autologous Tissue Substitute, Posterior Approach, Anterior Column, Open Approach (ICD-10-PCS; principal; 2020-10-28 13:45)
DX: S22.081A Stable burst fracture of T11-T12 vertebra, initial encounter for closed fracture (principal); N39.0 Urinary tract infection, site not specified; D62 Acute posthemorrhagic anemia; W19.XXXA Unspecified fall, initial encounter; M48.04 Spinal stenosis, thoracic region; G89.29 Other chronic pain; K59.00 Constipation, unspecified; R33.9 Retention of urine, unspecified; F41.8 Other specified anxiety disorders; I10 Essential (primary) hypertension; E03.9 Hypothyroidism, unspecified; R51.9 Headache, unspecified; Z79.891 Long term (current) use of opiate analgesic; K29.70 Gastritis, unspecified, without bleeding; T38.0X5A Adverse effect of glucocorticoids and synthetic analogues, initial encounter
CPT/HCPCS: 36415; 36430; 51702; 71045; 72020; 72131; 74176; 76000; 80053; 81001; 85014; 85018; 85025; 86850; 86900; 86920; 87086; 96361; 96372; 96374; 96375; 97116; 97162; 97166; 97530; 97535; 99285; C1713; J0330; J0696; J1100; J1170; J1644; J1650; J1885; J2270; J2360; J2405; J2704; J3010; J3490; J7030; J7512; P9016

== ENCOUNTER 2020-12-10 06:00 | Outpatient (RCR) | payer MEDICARE, SELFPAY | END 2020-12-11 23:59 | disposition home or self-care (01) | LOC: SPT 06:00 | PROVIDERS: PCP Internal Medicine; Referring Provider Orthopaedic Surgery; Visit Provider Orthopaedic Surgery | DX: Z47.89 Encounter for other orthopedic aftercare (principal) | CPT/HCPCS: 97161 ==

== ENCOUNTER 2020-12-12 06:00 | Outpatient (RCR) | payer MEDICARE, SELFPAY | END 2021-01-11 23:59 | disposition home or self-care (01) | LOC: SPT 06:00 | PROVIDERS: PCP Internal Medicine; Referring Provider Orthopaedic Surgery; Visit Provider Orthopaedic Surgery | DX: Z47.89 Encounter for other orthopedic aftercare (principal) | CPT/HCPCS: 97110 ==

== ENCOUNTER → 2020-12-19 10:29 | Outpatient (BNVA) | payer MEDICARE, SELFPAY | PROVIDERS: PCP Internal Medicine; Visit Provider Orthopaedic Surgery | DX: M54.5 Low back pain (principal); G89.29 Other chronic pain | CPT/HCPCS: 72100 ==

== ENCOUNTER 2021-01-12 06:00 | Outpatient (RCR) | payer MEDICARE, SELFPAY | END 2021-02-11 23:59 | disposition home or self-care (01) | LOC: SPT 06:00 | PROVIDERS: PCP Internal Medicine; Referring Provider Orthopaedic Surgery; Visit Provider Orthopaedic Surgery | DX: Z47.89 Encounter for other orthopedic aftercare (principal) | CPT/HCPCS: 97110 ==

== ENCOUNTER → 2021-02-04 13:34 | Outpatient (BNVA) | payer MEDICARE, SELFPAY | PROVIDERS: PCP Internal Medicine; Visit Provider Orthopaedic Surgery | DX: Z48.89 Encounter for other specified surgical aftercare (principal) | CPT/HCPCS: 72080 ==

== ENCOUNTER → 2021-03-25 10:02 | Outpatient (BNVA) | payer MEDICARE, SELFPAY | PROVIDERS: PCP Internal Medicine; Visit Provider Physician Assistant | DX: M54.6 Pain in thoracic spine (principal); G89.29 Other chronic pain; M47.896 Other spondylosis, lumbar region | CPT/HCPCS: 72070; 72100 ==

== ENCOUNTER 2021-05-06 14:16 | Outpatient (CLI) | payer MEDICARE, SELFPAY ==
--- NOTE | 2021-05-06 14:30 | XR_ITS ---
WS: [id number] SACROILIAC JOINTS TECHNIQUE: AP and oblique imaging is submitted. HISTORY: PAIN IN SI JOINT COMPARISON: None available. Normal appearance of the SI joints with no sclerosis or erosions. No bone destruction. No soft tissue abnormality. Asymmetric disc space narrowing at L4-5. Large osteophytes project to the RIGHT from the L4-5 vertebral bodies. XR/XR sacroiliac ts 3V [id number] IMPRESSION: Normal SI joints.
--- NOTE | 2021-05-06 14:30 | XR_ITS ---
WS: [id number] RIGHT HIP HISTORY: PAIN IN R HIP COMPARISON: None available. Right hip: No acute fracture or dislocation. No significant narrowing of the hip joint. Very slight s clerosis along the superior acetabulum. Asymmetric disc space narrowing at L4-5 and osteophytes projecting to the RIGHT from the vertebral nedra dies. XR/XR hip RT 2-3V wo/w pel* [id number] IMPRESSION: 1. No hip fracture. 2. No significant joint space narrowing.
== END 2021-05-06 14:17 | disposition home or self-care (01) ==
PROVIDERS: PCP Internal Medicine; Visit Provider Internal Medicine
DX: M25.551 Pain in right hip (principal); M53.3 Sacrococcygeal disorders, not elsewhere classified
CPT/HCPCS: 72202; 73502

== ENCOUNTER → 2021-05-23 13:35 | Outpatient (BNVA) | payer MEDICARE, SELFPAY | PROVIDERS: PCP Internal Medicine; Visit Provider Obstetrics & Gynecology | DX: Z12.4 Encounter for screening for malignant neoplasm of cervix (principal) | CPT/HCPCS: 87624 ==

== ENCOUNTER → 2021-05-29 13:13 | Outpatient (BNVA) | payer MEDICARE, SELFPAY | PROVIDERS: PCP Internal Medicine; Visit Provider Orthopaedic Surgery | DX: M47.816 Spondylosis without myelopathy or radiculopathy, lumbar region (principal); Z98.890 Other specified postprocedural states | CPT/HCPCS: 72100 ==

== ENCOUNTER 2021-07-02 13:32 | Outpatient (CLI) | payer MEDICARE, SELFPAY ==
--- NOTE | 2021-07-02 13:45 | MR_ITS ---
WS: [id number] MRI LUMBAR SPINE WITH AND WITHOUT CONTRAST. HISTORY: M54.5 - Low back pain COMPARISON: Lumbar spine radiograph 05/29/2021, 08/26/2020 MRI lumbar spine. TECHNIQUE: Sagittal and axial multisequence imaging is submitted. Sagittal and axial T1 fat sat seque nces post-MultiHance 20 cc IV. Patient is status post extensive posterior thoracolumbar fusion extending from T9 L2. Screw fixation at T9, T10 and T11, L1 and L2. Vertebral planar fracture known at T12. Slight increase in the thoracic kyphosis. Additional very mild anterior wedging of T7 and T8 similar to the prior study. Retropulsion of the posterior T12 vertebral body by 4 mm is similar to the prior study. Again noted i s the susceptibility artifact which may be due to vertebroplasty or hemorrhage. No acute marrow edema within the vertebral bodies. Conus terminates normally at L1-2 disc level. T12: Retropulsion of the T12 vertebral bodies causing very mild contact on the thecal sac. No contact on the cord. There is a large posterior laminectomy defect. There is at least mild to moderate germania inal stenosis at the T11-12 and T12-L1 levels. Detail is limited by artifact from the hardware. On th e postcontrast images there is enhancement at the surgical site but no mass or abscess identified. Th e postoperative changes are as expected. No epidural abscess. L1-L2: No significant stenosis. L2-L3: Mild concave deformity superior endplate of L2. No significant stenosis. L3-L4: Diffuse annular disc bulging with mild ligamentum flavum disease and facet arthritis. Disc ost eophyte encroaches into the RIGHT foramen with mild stenosis. L4-L5: Mild annular disc bulging with ligamentum flavum hypertrophy. Mild central and foraminal steno sis. No high-grade stenosis. L5-S1: Mild osteophytic ridging and annular disc bulging. On the postcontrast imaging there is some very mild enhancement in the soft tissues posteriorly. Grea test enhancement surrounding the facet joint at L2-3 bilaterally there is enhancement within the para vertebral soft tissues and extending into the neural foramina. No focal collection. No epidural absce ss could identified. MR/MR lumbar spine wo/w con [id number] IMPRESSION: 1. Status post thoracolumbar posterior fusion from T9-L2 to stabilize a severe compression deformity with retropulsion at T12. There is continued 4 mm retrop ulsion of the T12 vertebral but no change in the amount of contact or effacemen t of CSF. 2. No epidural abscess identified. 3. Enhancement in the posterior paraspinal soft tissues, most significant at t he L2-3 level. There is synovitis and facet joint enhancement. Extension of enh ancement into the neural foramen. No focal collection. No epidural abscess. 4. Component of foraminal narrowing at T11-12 and T12-L1 due to the fracture o f T12. The extent of the foraminal narrowing is mild to moderate. The hardware is obscuring further detail.
[2021-07-02] MEDS: gadobenate dimeglumine 20 mL vial IV (15:05)
== END 2021-07-02 13:33 | disposition home or self-care (01) ==
LOC: RADSHAW 13:38
PROVIDERS: PCP Internal Medicine; Visit Provider Orthopaedic Surgery
DX: M54.50 Low back pain, unspecified (principal); G89.29 Other chronic pain; M43.25 Fusion of spine, thoracolumbar region; M65.88 Other synovitis and tenosynovitis, other site
CPT/HCPCS: 72158; A9577

== ENCOUNTER 2021-10-06 16:27 | Emergency (ER) | payer MEDICARE, SELFPAY ==
[2021-10-06] VITALS (7 sets, daily range): BP systolic 130–169; BP diastolic 80–96; PULSE 68–84; RESP 14–95; TEMP 36.5; O2SAT 94–96
--- NOTE | 2021-10-06 16:34 | W.ED.FALL ---
HPI - Fall General: Chief Complaint: Trauma Stated Complaint: FALL Time Seen by Provider: 10/06/21 16:34 History of Present Illness: Ms. Agosto is a 61-year-old lady with complex past medical history including frequent falls who presents to the emergency department due to fall. She reports largely being at her baseline health the past few days and was getting up from sitting when she fell and struck the right side of her head. She reports being on the ground for some time with unknown duration of loss of consciousness. Currently complains of moderate intensity right hip pain worse with ambulation as well as right-sided head pain. Quality is aching. Course has persisted. No other specific changes in health, exacerbating, or alleviating factors identified. Onset (ago): hour(s) Fall from: standing Place fall occurred: home Loss of consciousness: Yes Length of LOC: minutes(s) Prolonged down time: yes Symptoms prior to fall: none Context: tripped/slipped and history of frequent falls Location of injury: head and pelvis Severity: moderate Review of Systems General: Reports: 10 or more systems reviewed and unremarkable except in HPI and below PFSH ED PFSH: Medical History Anxiety and depression Currently on Cymbalta managed by her primary care provider. Chronic hypertension Diagnosed at the age of 14 and controlled on medication managed by primary care provider. Chronic low back pain without sciatica Currently on hydrocodone and baclofen managed by the pain clinic Hypothyroid Currently on levothyroxine managed by PMD No pertinent past medical history Denies: hypertension, diabetes, heart, lung, liver, kidney, thyroid, genital herpes, bleeding problems, or clotting problems. her primary care provider is Dr. Salazar Surgical History History of ankle surgery 2006--LEFT x3. In [place] History of back surgery 10/2020---jef placed in back History of dental surgery tooth extraction Hx of section 03/26/89 S/P breast biopsy 2000-left breast-benign Family History Mother Family history of thyroid problem Thyroid condition Diabetes Hypertension Father Brain aneurysm Denies family history of Colon cancer Ovarian cancer DVT (deep venous thrombosis) Heart disease Breast cancer Suicide Pulmonary embolism Uterine cancer Social History Smoking and tobacco status: never smoked Physical Exam Const: COMMON NORMALS: alert GENERAL APPEARANCE: cooperative and well developed HENMT: COMMON NORMALS: normocephalic HEAD & SCALP: normocephalic THROAT: posterior oropharynx normal OTHER: Contusion to right head. No evidence of bony abnormality, no raccoon eyes or escamilla signs. No otorhinorrhea. No septal hematoma. Jaw alignment normal. Dentition baseline. Eye: COMMON NORMALS: conjunctivae normal CONJUNCTIVA: Yes conjunctivae normal SCLERA: sclerae normal Neck/C-Spine: COMMON NORMALS: supple GENERAL: Yes trachea midline Chest: OTHER: No acute traumatic finding. Resp: COMMON NORMALS: clear to auscultation bilaterally EFFORT & INSPECTION: Yes able to speak in complete sentences AUSCULTATION: clear to auscultation bilaterally Cardio: COMMON NORMALS: regular rate and regular rhythm RATE: regular rate RHYTHM: regular rhythm GI: COMMON NORMALS: Soft to palpation PALPATION: Yes Soft to palpation, Yes Tenderness to palpation present (GI) (Right side), No Guarding due to palpation present (GI) and No Rigid due to palpation PERCUSSION: normal to percussion Extremity: NARRATIVE EXTREMITY EXAM: Tender to palpation of right hip region GENERAL: Yes normal exam except as noted and No edema Neuro: COMMON NORMALS: moves all extremities SENSORIUM/ORIENTATION: Yes alert and No Orientation impaired Psych: COMMON NORMALS: mental status grossly normal and Normal thought process present THOUGHT PROCESS: Normal thought process present Course ED course: - Patient was seen and evaluated by me at bedside - Patient placed on cardiac monitors, IV access obtained - Initial evaluation notable for exam as above. Head to toe exam performed. - Labs personally interpreted by me. EKGs reviewed showing sinus rhythm, no STEMI. -Analgesia given - Labs notable for no acute hematologic or metabolic abnormality. CK minimally elevated. Delta troponin negative. Urinalysis not concerning for urinary tract infection. - Imaging notable for negative head and neck CT for acute traumatic injury. No acute traumatic abnormality identified on CT abdomen pelvis, there is abnormality identified on the gallbladder. Therefore ultrasound ordered. Ultrasound negative for evidence of cholecystitis. Patient clinical history is not consistent with biliary disease requiring intervention at this time. - Upon serial reexamination after treatment the patient was improved. She was able to ambulate - Based on patient history, evaluation, and testing as interpreted the most likely cause of the patient's condition is fall without bony or internal injury requiring intervention. - The results of ED evaluation were discussed with the patient including prescriptions and/or symptomatic cares (if applicable) including appropriate and responsible use, followup plan, and return precautions. The patient verbalized understanding and felt safe for discharge. - Patient discharged in satisfactory condition. Note: Click bubbles or prepopulated ramon in note writing are used for assistance with data collection and billing and are inherently more limited than narrative and other text portions of this note. Please use narrative for additional clinical history and defer to narrative/free test for any case of contradictory information. If information appears in only free text or click bubble it should be considered present or absent as reported. Please contact note securities underwriter for clarifications of clinical information or contradictory information. MDM is a brief summary, contradictory or erroneous seeming information should be clarified and full note should be reviewed. Vital Signs: Vital signs: Vital Signs Temperature 97.7 F 10/06/21 17:08 Pulse Rate 84 10/06/21 22:33 Respiratory Rate 19 H 10/06/21 22:33 Blood Pressure 139/83 10/06/21 22:33 Pulse Oximetry 96 10/06/21 22:33 MDM - Fall Medical Decision Making 61-year-old lady with complex past medical history including frequent falls presenting secondary to fall with hours downtime. CT is negative for fracture or internal injury. Improved with symptom treatment. Satisfactory for discharge and outpatient management. Medical Records I reviewed the patient's medical records. Lab Data I reviewed the patient's lab results. : 10/06/21 16:50 10/06/21 16:50 Radiology Impressions Abdomen/Pelvis CT 10/06/21 17:02 IMPRESSION: 1. Negative for acute traumatic injury to the abdomen or pelvis. 2. Gallbladder distended with cholelithiasis and mild gallbladder wall thickening, ultrasound could further evaluate for possible cholecystitis. 3. Common bile duct dilated to 8.8 mm without obstructing lesion, MRCP could further evaluate this. 4. Bilateral punctate non-obstructing calyceal stones. 5. Constipation. 6. Several likely chronic compression deformities throughout the spine with mild retropulsion of bony fragment seens at the level of the T12 vertebral body compression fracture with [id number] spinal canal narrowing, similar to prior exam along with spinal hardware again seen in the spine, similar to prior exam without acute appearing abnormality. 7. Bibasilar atelectasis. Cervical Spine CT 10/06/21 17:02 IMPRESSION: No cervical spine fracture. Head CT 10/06/21 17:02 IMPRESSION: No acute intracranial abnormality. Abdomen Ultrasound 10/06/21 18:52 IMPRESSION: 1. Common bile duct mildly dilated to 5.5 mm with cholelithiasis and mild gallbladder dilation, however, exam is negative for Oswald's sign. Findings are not definitive for cholecystitis by ultrasound alone, consider further evaluation with a nuclear medicine HIDA scan as clinically indicated. 2. Hepatic steatosis. Laboratory Results WBC 6.4 10^3/uL (4.0-10.0) 10/06/21 16:50 RBC 4.47 10^6/uL (4.1-5.3) 10/06/21 16:50 Hgb 13.6 g/dL (11.5-15.3) 10/06/21 16:50 Hct 43.2 % (37.0-47.0) 10/06/21 16:50 MCV 96.6 fl (81-99) 10/06/21 16:50 MCH 30.4 pg (28.0-34.0) 10/06/21 16:50 MCHC 31.5 g/dL (30.0-36.0) 10/06/21 16:50 RDW 13.2 % (12.1-15.1) 10/06/21 16:50 Plt Count 224 10^3/cmm (130-400) 10/06/21 16:50 MPV 9.5 fL (7.4-10.4) 10/06/21 16:50 Neut % (Auto) 74.6 % 10/06/21 16:50 Lymph % (Auto) 14.2 % 10/06/21 16:50 [place] % (Auto) 8.3 % 10/06/21 16:50 Eos % (Auto) 1.9 % 10/06/21 16:50 Baso % (Auto) 0.5 % 10/06/21 16:50 Neut # (Auto) 4.74 10^3/uL (1.8-7.7) 10/06/21 16:50 Lymph # (Auto) 0.9 10^3/uL (0.8-4.8) 10/06/21 16:50 [place] # (Auto) 0.5 10^3/uL (0.2-0.9) 10/06/21 16:50 Eos # (Auto) 0.1 10^3/uL (0.0-0.8) 10/06/21 16:50 Baso # (Auto) 0.0 10^3/uL (0.0-0.1) 10/06/21 16:50 Nucleated RBC % (auto) 0 % 10/06/21 16:50 Nucleated RBCs # 0.0 /100WBC 10/06/21 16:50 Sodium 140 mmol/L (136-145) 10/06/21 16:50 Potassium 3.9 mmol/L (3.5-5.1) 10/06/21 16:50 Chloride 103 mmol/L (98-107) 10/06/21 16:50 Carbon Dioxide 24 mmol/L (22-29) 10/06/21 16:50 Anion Gap 16.9 (5-19) 10/06/21 16:50 BUN 17 mg/dL (8-23) 10/06/21 16:50 Creatinine 0.6 mg/dL (0.5-0.9) 10/06/21 16:50 GFR Calculation 101.0 mL/min (90-130) 10/06/21 16:50 Glucose 121 mg/dL (65-115) H 10/06/21 16:50 Calculated Osmolality 293 mOsm/kg (285-295) 10/06/21 16:50 Calcium 8.8 mg/dL (8.5-10.5) 10/06/21 16:50 Total Bilirubin 0.6 mg/dL (0.15-1.2) 10/06/21 16:50 AST 23 U/L (0-32) 10/06/21 16:50 ALT 14 U/L (0-33) 10/06/21 16:50 Alkaline Phosphatase 135 IU/L (35-105) H 10/06/21 16:50 Creatine Kinase 330 U/L (26-192) H* 10/06/21 16:50 Troponin T Baseline 30 ng/L (0-10) H 10/06/21 16:50 Troponin T 120 Minute 26.34 ng/L (0-10) H 10/06/21 19:10 Delta Troponin T -3.66 ABS# (0-10) L 10/06/21 19:10 NT-Pro-B Natriuret Pep 144 pg/mL (0-125) H 10/06/21 16:50 Total Protein 8.0 g/dL (6.6-8.7) 10/06/21 16:50 Albumin 4.3 g/dL (3.5-5.2) 10/06/21 16:50 Globulin 3.7 g/dL (1.3-4.6) 10/06/21 16:50 Urine Color Yellow (Yellow) 10/06/21 20:18 Urine Appearance Clear (CLEAR) 10/06/21 20:18 Urine pH 6 (5-7) 10/06/21 20:18 Ur Specific [place] 1.005 (1.005-1.030) 10/06/21 20:18 Urine Protein Neg (Negative) 10/06/21 20:18 Urine Glucose (UA) Norm (Normal) 10/06/21 20:18 Urine Ketones 1+ (Negative) H 10/06/21 20:18 Urine Blood Neg (Negative) 10/06/21 20:18 Urine Nitrate Negative (Negative) 10/06/21 20:18 Urine Bilirubin Neg (Negative) 10/06/21 20:18 Urine Urobilinogen Norm mg/dL (Negative) 10/06/21 20:18 Ur Leukocyte Esterase Negative (Negative) 10/06/21 20:18 Discharge Plan Discharge Patient Disposition: Home Clinical Impression: Fall, Head injury Condition: Stable Prescriptions: No Action oxybutynin chloride 5 mg tablet See Rx Instructions .ROUTE .COMPLEX 0RF Rx Instructions: 5 mg orally in morning; 10mg HS baclofen 20 mg tablet 20 mg PO QID PRN (Reason: spasms) 30 Days Qty: 120 1RF levothyroxine 50 mcg capsule 50 mcg PO QDAY 0RF topiramate 50 mg tablet 50 mg PO QPM 0RF propranolol 40 mg tablet 40 mg PO BID 0RF sumatriptan succinate 50 mg tablet See Rx Instructions .ROUTE .COMPLEX PRN (Reason: Migraine Headache) 0RF Rx Instructions: 50 mg AT ONSET OF HEADACHE - TAKE 100 MG TABLET IF WAKE UP WITH HEADACHE verapamil 120 mg tablet 120 mg PO DAILY 0RF duloxetine [Cymbalta] 30 mg capsule,delayed release(DR/EC) 60 mg PO QDAY 0RF topiramate 25 mg tablet 25 mg PO DAILY 0RF gabapentin 300 mg capsule 300 mg PO TID 0RF meloxicam 7.5 mg tablet 7.5 mg PO BID 0RF temazepam 15 mg capsule 15 mg PO BEDTIME PRN (Reason: Sleep) 0RF hydrocodone-acetaminophen 5-325 mg tablet 1 tab PO Q6H PRN (Reason: pain) 7 Days Qty: 30 0RF oxybutynin chloride 10 mg tablet extended release 24hr 10 mg PO QPM 0RF sumatriptan succinate 100 mg tablet See Rx Instructions .ROUTE .COMPLEX PRN (Reason: Migraine Headache) 0RF Rx Instructions: 100 mg orally IF WAKE UP WITH HEADACHE ropinirole 0.25 mg tablet 0.25 mg PO DAILY PRN (Reason: Cramps) 0RF Discharge Orders: Discharge ED (Routine); Ordered 10/06/21 Ordered By: Abhi Beltran Referrals: Charity Salazar MD [Primary Care Provider] - Discharge Diet: Usual diet Discharge Activity: Resume usual activity Activity Restrictions/Additional Instructions: Thank you for visiting the emergency department. You were seen and evaluated for fall with head injury or loss of consciousness. The exact cause of your recurrent falls is unclear. No acute traumatic injury was identified. As discussed you do have incidental findings regarding your gallbladder however in the absence of symptoms this can be monitored in the outpatient setting. Please follow-up with your primary care provider. Please return to the emergency department for recurrent symptoms or anything else that you are concerned about and feel needs emergency department evaluation. Your creatine kinase was mildly elevated, please ensure that you are staying hydrated. Please return to the emergency department for anything that you are concerned about and feel needs emergency department evaluation. Coding Level of Care Code ED [employer] for Jade Gracia
--- NOTE | 2021-10-06 17:02 | CTR_ITS ---
PROCEDURE INFORMATION: Exam: CT Head Without Contrast Exam date and time: 10/06/2021 6:07 PM Age: 61 years old Clinical indication: Injury or trauma; Fall; Abrasion; Forehead; Additional info: Fall, headstrike, no loc TECHNIQUE: Imaging protocol: Computed tomography of the head without contrast. Radiation optimization: All CT scans at this facility use at least one of these dose optimization techniques: automated exposure control; mA and/or kV adjustment per patient size (includes targeted exams where dose is matched to clinical indication); or iterative reconstruction. COMPARISON: MR head wo con* [id number] 08/22/2019 3:37 PM RADIATION DOSE METRICS: Total DLP (mGy-cm): 932.21 FINDINGS: Brain: Normal. No hemorrhage. Unremarkable white matter. No mass effect. Cerebral ventricles: No ventriculomegaly. Paranasal sinuses: Visualized sinuses are unremarkable. No fluid levels. Mastoid air cells: Visualized mastoid air cells are well aerated. Bones/joints: Unremarkable. No acute fracture. Soft tissues: Mild soft tissue swelling is present in the right aspect of the forehead and in the scalp at the vertex. CT/CT head wo con* [id number] IMPRESSION: No acute intracranial abnormality.
--- NOTE | 2021-10-06 17:02 | CTR_ITS ---
PROCEDURE INFORMATION: Exam: CT Abdomen And Pelvis With Contrast Exam date and time: 10/06/2021 6:18 PM Age: 61 years old Clinical indication: Injury or trauma; Fall; Sprain or strain; Injury date: 10/06/2021; Additional info: Fall, back and abdominal pain TECHNIQUE: Imaging protocol: Computed tomography of the abdomen and pelvis with contrast. Radiation optimization: All CT scans at this facility use at least one of these dose optimization techniques: automated exposure control; mA and/or kV adjustment per patient size (includes targeted exams where dose is matched to clinical indication); or iterative reconstruction. Contrast material: OMNIPAQUE; Contrast volume: 95 ml; Contrast route: INTRAVENOUS (IV); COMPARISON: CT abdomen pelvis wo con [id number] 11/01/2020 11:08 AM RADIATION DOSE METRICS: Total DLP (mGy-cm): 1738.25 FINDINGS: Lungs: Bibasilar atelectasis. Liver: Normal. No mass. Gallbladder and bile ducts: Gallbladder distended with cholelithiasis and mild gallbladder wall thickening, ultrasound could further evaluate for possible cholecystitis. Common bile duct dilated to 8.8 mm without obstructing lesion, MRCP could further evaluate this. Pancreas: Normal. No ductal dilation. Spleen: Normal. No splenomegaly. Adrenal glands: Normal. No mass. Kidneys and ureters: Normal. No hydronephrosis. Stomach and bowel: Constipation. Appendix: No evidence of appendicitis. Intraperitoneal space: Unremarkable. No free air. No significant fluid collection. Arteries: Unremarkable. No abdominal aortic aneurysm. Lymph nodes: Unremarkable. No enlarged lymph nodes. Urinary bladder: Unremarkable as visualized. Reproductive: Unremarkable as visualized. Bones/joints: Several likely chronic compression deformities throughout the spine with mild retropulsion of bony fragment seens at the level of the T12 vertebral body compression fracture with [id number] spinal canal narrowing, similar to prior exam along with spinal hardware again seen in the spine, similar to prior exam without acute appearing abnormality. Soft tissues: Unremarkable. Other findings: Bilateral punctate non-obstructing calyceal stones. CT/CT abdomen pelvis w con* [id number] IMPRESSION: 1. Negative for acute traumatic injury to the abdomen or pelvis. 2. Gallbladder distended with cholelithiasis and mild gallbladder wall thickening, ultrasound could further evaluate for possible cholecystitis. 3. Common bile duct dilated to 8.8 mm without obstructing lesion, MRCP could further evaluate this. 4. Bilateral punctate non-obstructing calyceal stones. 5. Constipation. 6. Several likely chronic compression deformities throughout the spine with mild retropulsion of bony fragment seens at the level of the T12 vertebral body compression fracture with [id number] spinal canal narrowing, similar to prior exam along with spinal hardware again seen in the spine, similar to prior exam without acute appearing abnormality. 7. Bibasilar atelectasis.
--- NOTE | 2021-10-06 17:02 | CTR_ITS ---
PROCEDURE INFORMATION: Exam: CT Cervical Spine Without Contrast Exam date and time: 10/06/2021 6:11 PM Age: 61 years old Clinical indication: Injury or trauma; Fall; Blunt trauma; Additional info: Fall, headstrike, no loc TECHNIQUE: Imaging protocol: Computed tomography images of the cervical spine without contrast. Radiation optimization: All CT scans at this facility use at least one of these dose optimization techniques: automated exposure control; mA and/or kV adjustment per patient size (includes targeted exams where dose is matched to clinical indication); or iterative reconstruction. COMPARISON: CT Cervical Spine wo* [id number] 12/14/2017 6:36 AM RADIATION DOSE METRICS: Total DLP (mGy-cm): 833.72 FINDINGS: Vertebrae: No acute fracture. Normal alignment. Soft tissues: Unremarkable. Lungs: Lung apices are normal. CT/CT cervical spin wo con* [id number] IMPRESSION: No cervical spine fracture.
[2021-10-06] MEDS: morphine 4 mg/mL SDV 1 mL IVP (17:05)
[2021-10-06 17:14] LABS: Basophils % 0.5 %; Eosinophils # 0.1 10^3/uL (0.0-0.8); Eosinophils % 1.9 %; Hematocrit 43.2 % (37.0-47.0); Hemoglobin 13.6 g/dL (11.5-15.3); Lymphocytes # 0.9 10^3/uL (0.8-4.8); Lymphocytes % 14.2 %; Mean Corpuscular HGB Conc 31.5 g/dL (30.0-36.0); Mean Corpuscular Hemoglobin 30.4 pg (28.0-34.0); Mean Corpuscular Volume 96.6 fl (81-99); Mean Platelet Volume 9.5 fL (7.4-10.4); Monocytes # 0.5 10^3/uL (0.2-0.9); Monocytes % 8.3 %; Neutrophils # 4.74 10^3/uL (1.8-7.7); Neutrophils % 74.6 %; Nucleated Red Blood Cells % 0 %; Platelet Count 224 10^3/cmm (130-400); Red Blood Count 4.47 10^6/uL (4.1-5.3); Red Cell Distribution Width 13.2 % (12.1-15.1); White Blood Count 6.4 10^3/uL (4.0-10.0)
[2021-10-06 17:35] LABS: Troponin(5th) Baseline 30 ng/L (0-10)
[2021-10-06 17:44] LABS: Alanine Aminotransferase 14 U/L (0-33); Albumin Level 4.3 g/dL (3.5-5.2); Alkaline Phosphatase 135 IU/L (35-105); Anion Gap 16.9 (5-19); Aspartate Amino Transferase 23 U/L (0-32); Blood Urea Nitrogen 17 mg/dL (8-23); Calcium 8.8 mg/dL (8.5-10.5); Carbon Dioxide 24 mmol/L (22-29); Chloride 103 mmol/L (98-107); Globulin 3.7 g/dL (1.3-4.6); Glucose 121 mg/dL (65-115); NT Pro B Type Natriuretic Pept 144 pg/mL (0-125); Osmolality Calculated 293 mOsm/kg (285-295); Potassium 3.9 mmol/L (3.5-5.1); Sodium 140 mmol/L (136-145); Total Bilirubin 0.6 mg/dL (0.15-1.2)
[2021-10-06 17:46] LABS: Creatine Phosphokinase 330 U/L (26-192)
[2021-10-06] MEDS: iohexol 350 mg/mL 100 mL Btl IV (18:13)
[2021-10-06] MEDS: sodium chloride 0.9% 1,000 ML 999 ML IV (18:33)
--- NOTE | 2021-10-06 18:52 | USR_ITS ---
PROCEDURE INFORMATION: Exam: US Abdomen, Limited; Right Upper Quadrant Exam date and time: 10/06/2021 7:04 PM Age: 61 years old Clinical indication: Abnormal findings; Abnormal radiologic finding of the abdomen; Radiologic exam and body structure: Abdominal CT; Additional info: Ruq, abnormal CT TECHNIQUE: Imaging protocol: US abdomen. Real time ultrasound with image documentation. Limited exam focused on the right upper quadrant. COMPARISON: CT abdomen pelvis w con* [id number] 10/06/2021 6:18 PM FINDINGS: Liver: Hepatic steatosis. Gallbladder: See Common bile duct finding. Common bile duct: Common bile duct mildly dilated to 5.5 mm with cholelithiasis and mild gallbladder dilation, however, exam is negative for Oswald's sign. Findings are not definitive for cholecystitis by ultrasound alone, consider further evaluation with a nuclear medicine HIDA scan as clinically indicated. Pancreas: Visualized pancreas is unremarkable. Right kidney: Normal. No mass. No hydronephrosis. US/US abdomen limited [id number] IMPRESSION: 1. Common bile duct mildly dilated to 5.5 mm with cholelithiasis and mild gallbladder dilation, however, exam is negative for Oswald's sign. Findings are not definitive for cholecystitis by ultrasound alone, consider further evaluation with a nuclear medicine HIDA scan as clinically indicated. 2. Hepatic steatosis.
--- NOTE | 2021-10-06 19:03 | ECG_ITS ---
[facility] Test Date: 2021-10-06 Pat Name: Niki Agosto Department: Room: Gender: Female [place]: : 1960 Requested By: Abhi Beltran Order Number: [id number] Kirti MD: Jorje Bran M.D. Measurements Intervals Camilla Rate: 66 P: 12 IN: 175 QRS: -14 QRSD: 102 T: 32 QT: 408 QTc: 430 Interpretive Statements SINUS RHYTHM Compared to ECG 10/06/2021 17:18:25 Myocardial infarct finding no longer present Electronically Signed On 10-06-2021 22:11:44 CDT by Jorje Bran M.D. [id number]
[2021-10-06] MEDS: ketorolac 30 mg/mL INJ 15 MG IVP (19:13)
[2021-10-06] MEDS: acetaminophen 500 mg Tablet 1000 MG PO (19:14)
--- NOTE | 2021-10-06 19:25 | PC.NURSE ---
Trauma Assessment note: Pt to ED by EMS for eval of fall with LOC. Pt reports she has been dizzy lately and having frequent falls. Pt reports she was walking with her walker when she fell over the front of it around noon and woke up some time after 1400. Pt denies blood thinner. Presents with bruise to R eyebrow with scattered abrasions above eyebrow and scalp. Scattered bruising noted to R arm. Pt CO pain to neck with ROM, R arm/wrist and R side.
[2021-10-06 19:42] LABS: Troponin 5 2HR 26.34 ng/L (0-10)
[2021-10-06 19:43] LABS: Troponin 5 2HR Delta -3.66 ABS# (0-10)
[2021-10-06 21:41] LABS: Add Urine Microscopic? NO; Bilirubin Urine Neg (Negative); Blood Urine Neg (Negative); Glucose Urine UA Norm (Normal); Ketones Urine 1+ (Negative); Leukocyte Esterase Urine Negative (Negative); Nitrate Urine Negative (Negative); Protein Urine Neg (Negative); Specific Gravity, Urine 1.005 (1.005-1.030); Urine Appearance Clear (CLEAR); Urine Color Yellow (Yellow); Urobilinogen Urine Norm (Negative); pH Urine 6 (5-7)
[2021-10-06 21:43] LABS: Charge for UA Resulting for Rev
--- NOTE | 2021-10-06 23:03 | ECG_ITS ---
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 Measurements Intervals [place] Rate: 63 P: 46 VT: 207 QRS: -29 QRSD: 90 T: 0 QT: 398 QTc: 410 Interpretive Statements SINUS RHYTHM LOW QRS VOLTAGE IN PRECORDIAL LEADS [QRS DEFLECTION < 1.0 mV IN CHEST LEADS] POSSIBLE RIGHT VENTRICULAR CONDUCTION DELAY [RSR (QR) IN V1/V2] ANTEROSEPTAL MYOCARDIAL INFARCTION , OF INDETERMINATE AGE [40+ ms Q WAVE IN V1-V4] Compared to ECG 12/14/2017 13:36:33 Low QRS voltage now present Myocardial infarct finding still present Electronically Signed On 10-06-2021 22:12:08 CDT by Jorje Bran M.D. [id number]
== END 2021-10-06 23:10 | disposition home or self-care (01) ==
PROVIDERS: Emergency Provider Emergency Medicine; PCP Internal Medicine
DX: S09.90XA Unspecified injury of head, initial encounter (principal); W19.XXXA Unspecified fall, initial encounter
CPT/HCPCS: 70450; 72125; 74177; 76705; 80053; 81003; 82550; 83880; 84484; 85025; 93005; 96361; 96374; 96375; 96376; 99284; J1885; J2270; J7030; Q9967

== ENCOUNTER 2021-10-15 15:22 | Outpatient (CLI) | payer MEDICARE, SELFPAY ==
--- NOTE | 2021-10-15 16:13 | XRR_ITS ---
PROCEDURE INFORMATION: Exam: XR Bilateral Hips Exam date and time: 10/15/2021 4:13 PM Age: 61 years old Clinical indication: Pain and injury or trauma; Fall; Blunt trauma (contusions or hematomas); Hip pain; Left hip; Injury date: 10 days ago; Additional info: Pain in left and right hip TECHNIQUE: Imaging protocol: XR bilateral hips. Views: 2 views of hips with pelvis when performed. COMPARISON: CT abdomen pelvis w con* [id number] 10/06/2021 6:18 PM FINDINGS: Bones/joints: Four views submitted. Probable mild osteopenia. No acute fracture dislocation. Small chronic enthesophytes at the greater trochanteric and ischial tuberosity regions bilaterally. Well maintained hip joint spaces on this nonweightbearing exam. Soft tissues: Unremarkable. XR/XR hip BI 3-4V wo/w pel [id number] IMPRESSION: 1. No acute findings. 2. If there is a strong clinical concern for an occult fracture, followup exam or MRI correlation may also be considered.
--- NOTE | 2021-10-15 16:13 | XRR_ITS ---
PROCEDURE INFORMATION: Exam: XR Left Femur Exam date and time: 10/15/2021 4:13 PM Age: 61 years old Clinical indication: Pain and injury or trauma; Fall; Blunt trauma; Thigh or upper leg; Patient HX: PT fell 10 days ago, pain left hip/femur; Additional info: Pain in left and right hip TECHNIQUE: Imaging protocol: XR Left femur. Views: 2 views. COMPARISON: CT abdomen pelvis w con* [id number] 10/06/2021 6:18 PM FINDINGS: Bones/joints: Probable mild osteopenia. No acute fracture or suspicious bony lesions. Soft tissues: Unremarkable. Other findings: Four views submitted. XR/XR femur LT min 2V* [id number] IMPRESSION: No acute findings.
== END 2021-10-15 15:23 | disposition home or self-care (01) ==
PROVIDERS: PCP Internal Medicine; Visit Provider Internal Medicine
DX: M25.552 Pain in left hip (principal); M25.551 Pain in right hip; Z91.81 History of falling
CPT/HCPCS: 73522; 73552

== ENCOUNTER → 2021-10-28 08:31 | Outpatient (BNVA) | payer MEDICARE, SELFPAY | PROVIDERS: PCP Internal Medicine; Visit Provider Orthopaedic Surgery | DX: M48.062 Spinal stenosis, lumbar region with neurogenic claudication (principal); Z98.1 Arthrodesis status | CPT/HCPCS: 72100; 99213; 99214 ==

== ENCOUNTER 2021-10-29 10:51 | Outpatient (CLI) | payer MEDICARE, SELFPAY ==
--- NOTE | 2021-10-29 11:07 | MR_ITS ---
WS: [id number] MRI LEFT HIP with CONTRAST. COMPARISON: CT 10/06/2021 Multiplanar, multisequence imaging is performed without contrast. Multi planar imaging of the pelvis is performed. No dedicated coronal and axial imaging through the L EFT hip were performed. Symmetric appearance of the hips bilaterally. No marrow edema or fracture is identified on this MRI t argeted towards the pelvis. No joint effusion. No soft tissue hematoma is identified. No free fluid in the pelvis. Minimal distention of the urinary bladder. Uterus is atrophic. MR/MR hip LT wo con* [id number] IMPRESSION: 1. No pelvic fracture identified. No marrow edema in the limited imaging provi ded of the LEFT hip. 2. No soft tissue injury.
== END 2021-10-29 10:52 | disposition home or self-care (01) ==
LOC: RAD 10:53
PROVIDERS: PCP Internal Medicine; Visit Provider Internal Medicine
DX: M25.552 Pain in left hip (principal)
CPT/HCPCS: 73721

== ENCOUNTER 2021-11-29 08:15 | Outpatient (CLI) | payer MEDICARE, SELFPAY ==
--- NOTE | 2021-11-29 08:45 | MR_ITS ---
WS: [id number] MRI LUMBAR SPINE NONCONTRAST HISTORY: low back pain, prior surgery October 2020. Recent fall. COMPARISON: 07/02/2021 TECHNIQUE: Sagittal and axial multisequence imaging is submitted. Prior posterior thoracolumbar fusion from T9 to L2. Remote severe compression deformity at T12. Marked LEFT curvature lower lumbar vertebral bodies. New moderate to severe compression fractures at L2 and L3. There is marrow signal extending throughout the L3 vertebral body and greatest into the RI GHT pedicle and lamina. Additional new fracture and abnormal marrow signal in the L2 vertebral body. There is hardware at the L2 level obscuring some detail but there is mild retropulsion of the L2 vert ebral body. L1 remains intact. Disc spaces are desiccated and narrowed throughout. Conus terminates normally at L1-2 disc level. L1-L2: Facet joint arthritis. No high-grade stenosis or disc protrusion. Mild LEFT foraminal narrowin g. L2-L3: New retropulsion of the posterior L2 vertebral body into the LEFT subarticular recess and prox imal foramen. Moderate encroachment upon the LEFT subarticular recess. Foramina are partially obscure d. Probable mild LEFT foraminal stenosis. L3-L4: Mild annular disc bulging and osteophytic ridging. Mild ligamentum flavum disease and facet ar thritis. There is mild posterior retropulsion of the RIGHT lateral vertebral body extending into the lateral recess. Mild central and bilateral subarticular recess stenosis. L4-L5: Mild osteophytic ridging and disc bulging. Small bilateral foraminal disc protrusions. Moderat e ligamentum flavum and facet arthritis. Mild central, bilateral subarticular recess and minimal RIGH T foraminal stenosis. Similar to the prior study. L5-S1: Mild osteophytic ridging and annular disc bulging. Small RIGHT foraminal disc protrusion is si milar to the prior study with no progression. Muscle atrophy. No sacral edema or fracture identified. MR/MR lumbar spine wo con* [id number] IMPRESSION: 1. Status post thoracolumbar posterior fusion from T9 to L2. 2. New since 07/02/2021 are compression fractures at L2 and L3 with mild retrop ulsion of the posterior vertebral bodies. 3. Biconcave L2 fracture and compression fracture of L3 are new. Additional ed giuliana extends into the RIGHT L3 pedicle and lamina. 4. 6 mm retropulsion of the posterior L2 vertebral body with encroachment upon the LEFT lateral sac extending into the LEFT foramen. This area is partially o bscured by hardware but suspect nerve root encroachment of the traversing nerve root. 5. Mild retropulsion of the posterior RIGHT lateral vertebral body contact in the thecal sac. Mild central and bilateral subarticular recess narrowing.
== END 2021-11-29 08:16 | disposition home or self-care (01) ==
LOC: RAD 08:19
PROVIDERS: PCP Internal Medicine; Visit Provider Orthopaedic Surgery
DX: M48.56XA Collapsed vertebra, not elsewhere classified, lumbar region, initial encounter for fracture (principal); Z98.1 Arthrodesis status
CPT/HCPCS: 72148

== ENCOUNTER → 2021-12-02 14:41 | Outpatient (BNVA) | payer MEDICARE, SELFPAY | PROVIDERS: PCP Internal Medicine; Visit Provider Orthopaedic Surgery | DX: M48.062 Spinal stenosis, lumbar region with neurogenic claudication (principal) | CPT/HCPCS: 99214 ==

== ENCOUNTER 2021-12-14 20:37 | Observation (INO) | payer MEDICARE, SELFPAY ==
[2021-12-14 20:38] VITALS: BP 159/62; PULSE 98; RESP 17; TEMP 37.1; O2SAT 98; BMI 41.8
--- NOTE | 2021-12-14 20:39 | ED_ITS ---
HPI - Altered Mental Status General: Chief Complaint: Altered Mental Status Stated Complaint: AMS Time Seen by Provider: 12/14/21 20:39 Limitations: altered mental status History of Present Illness: Ms. Agosto is a 61-year-old lady with complex past medical history who presents to the emergency department due to altered mental status. Exact time of onset is somewhat unclear and the patient's history is limited. The patient perseverates on history of back pain however does endorse that at approximately 6 her friend came over and noted that she seemed confused as well as repeating questions and falling asleep. The patient does not recall falling asleep however does feel slightly abnormal. She denies changes in medication regimen or other recent changes in health. History otherwise limited by mental state. Per discussion with patient's friend upon her arrival patient apparently was texting fairly normally this morning however was found to be confused by patient's friends daughter at approximately 4 PM. Review of Systems General: Reports: ROS unobtainable due to mental status PFS ED PFSH: Medical History Altered mental status Anxiety and depression Currently on Cymbalta managed by her primary care provider. At risk for polypharmacy Chronic hypertension Diagnosed at the age of 14 and controlled on medication managed by primary care provider. Chronic low back pain without sciatica Currently on hydrocodone and baclofen managed by the pain clinic Hypothyroid Currently on levothyroxine managed by PMD No pertinent past medical history Denies: hypertension, diabetes, heart, lung, liver, kidney, thyroid, genital herpes, bleeding problems, or clotting problems. her primary care provider is Dr. Salazar Surgical History History of ankle surgery 2006--LEFT x3. In [place] History of back surgery 10/2020---jef placed in back History of dental surgery tooth extraction Hx of section 03/26/89 S/P breast biopsy 2000-left breast-benign Family History Mother Family history of thyroid problem Thyroid condition Diabetes Hypertension Father Brain aneurysm Denies family history of Colon cancer Ovarian cancer DVT (deep venous thrombosis) Heart disease Breast cancer Suicide Pulmonary embolism Uterine cancer Social History Smoking and tobacco status: never smoked Physical Exam Const: COMMON NORMALS: alert GENERAL APPEARANCE: cooperative and well developed ORIENTATION/CONSCIOUSNESS: Yes oriented to person, Yes oriented to place and Yes oriented to time HENMT: COMMON NORMALS: normocephalic and atraumatic HEAD & SCALP: normocephalic and atraumatic THROAT: posterior oropharynx normal Eye: COMMON NORMALS: Equal, round and reactive pupils present, EOMs intact bilaterally, conjunctivae normal and normal visual ramon by confrontation CONJUNCTIVA: Yes conjunctivae normal SCLERA: sclerae normal PUPIL: Yes Equal, round and reactive pupils present Neck/C-Spine: COMMON NORMALS: supple GENERAL: Yes trachea midline Resp: COMMON NORMALS: normal respiratory effort and clear to auscultation bilaterally EFFORT & INSPECTION: Yes able to speak in complete sentences AUSCULTATION: clear to auscultation bilaterally Cardio: COMMON NORMALS: regular rate and regular rhythm RATE: regular rate RHYTHM: regular rhythm GI: COMMON NORMALS: Soft to palpation PALPATION: Yes Soft to palpation and No Tenderness to palpation present (GI) Extremity: GENERAL: Yes normal exam except as noted and No edema Neuro: COMMON NORMALS: CN's II-XII intact bilaterally, moves all extremities, no focal motor deficits and no sensory deficits noted SENSORIUM/ORIENTATION: Yes alert, Yes oriented to person, Yes oriented to place and Yes oriented to time Course ED course: - Patient was seen and evaluated by me at bedside - Patient placed on cardiac monitors, IV access obtained - Initial evaluation notable for exam as above. Patient does have altered mental status however no focal neurologic deficits and she is oriented. Outside tPA window given unclear time of onset even if patient did qualify. - Labs and xrays personally interpreted by me. EKG showing nonspecific ST segment abnormalities. No STEMI. - Labs notable for no significant metabolic or hematologic abnormality to explain patient's symptoms. ABG with mild hypoxemia. Delta troponin negative. Urinalysis not concerning for urinary tract infection. - Imaging notable for no acute intracranial pathology on head CT. Chest x-ray without lobar consolidation or pneumothorax. - Upon serial reexamination after treatment the patient was similar. - Based on patient history, evaluation, and testing as interpreted the most likely cause of the patient's condition is altered mental status of uncertain etiology, perhaps polypharmacy - The results of ED evaluation were discussed with the patient including plan for admission due to requirement for level of care not available if discharged to prevent significant worsening/deterioration. - Admitting service was contacted and Dr Fonseca with the hospitalist service agreed to admit the patient - Patient was admitted without further deterioration or significant events. Note: Click bubbles or prepopulated ramon in note writing are used for assistance with data collection and billing and are inherently more limited than narrative and other text portions of this note. Please use narrative for additional clini abigail history and defer to narrative/free test for any case of contradictory information. If information appears in only free text or click bubble it should be considered present or absent as reported. Please contact note financial writer for clarifications of clinical information or contradictory information. MDM is a brief summary, contradictory or erroneous seeming information should be clarified and full note should be reviewed. Vital Signs: Vital signs: Vital Signs Temperature 98.6 F 12/16/21 11:47 Pulse Rate 66 12/16/21 11:47 Respiratory Rate 16 12/16/21 11:47 Blood Pressure 142/89 12/16/21 11:47 Pulse Oximetry 96 12/16/21 11:47 MDM - Altered Mental Status Medical Decision Making 61-year-old lady presenting with altered mental status. ED evaluation is essentially not revealing of a cause. The patient certainly has a number of medications which in combination can cause symptoms. Upon reevaluation patient's mental status remains abnormal per report a friend. Primarily symptom noted is circumferential and repetitive statements. Exam continues to be nonfocal. Admitted for further management. Medical Records I reviewed the patient's medical records. Lab Data I reviewed the patient's lab results. : 12/16/21 03:34 12/16/21 03:34 Radiology Impressions Chest X-Ray 12/14/21 20:41 IMPRESSION: 1. No acute cardiopulmonary findings. 2. Low lung volumes. 3. Tortuous, possibly ectatic (mildly dilated) thoracic aorta. Head CT 12/14/21 20:41 IMPRESSION: No acute intracranial findings. Carotid Doppler Study 12/15/21 05:22 IMPRESSION: No hemodynamically significant stenosis by peak systolic velocity criteria. REFERENCES: SRU CRITERIA. The degree of internal carotid artery stenosis is based on criteria defined by the Society of Radiologists in Ultrasound (SRU). Normal is no stenosis. Mild is less than 50% stenosis. Moderate is 50-69% stenosis. Severe is greater than 69% stenosis to near occlusion. Near occlusion is a markedly narrowed lumen. Total occlusion is no detectable patent lumen. Laboratory Results WBC 6.8 10^3/uL (4.0-10.0) 12/14/21 20: RBC 4.63 10^6/uL (4.1-5.3) 12/14/21 20:30 Hgb 13.9 g/dL (11.5-15.3) 12/14/21 20: Hct 42.5 % (37.0-47.0) 12/14/21 20: MCV 91.8 fl (81-99) 12/14/21 20: MCH 30.0 pg (28.0-34.0) 12/14/21: MCHC 32.7 g/dL (30.0-36.0) 12/14/21 20: RDW 12.9 % (12.1-15.1) 12/14/21 20: Plt Count 271 10^3/cmm (130-400) 12/14/21: MPV 10.2 fL (7.4-10.4) 12/14/21 20: Neut % (Auto) 70.0 % 12/14/21 20: Lymph % (Auto) 21.4 % 12/14/21 20: [place] % (Auto) 5.4 % 12/14/21 20: Eos % (Auto) 2.2 % 12/14/21 20: Baso % (Auto) 0.6 % 12/14/21: Neut # (Auto) 4.75 10^3/uL (1.8-7.7) 12/14/21 20: Lymph # (Auto) 1.5 10^3/uL (0.8-4.8) 12/14/21 20: [place] # (Auto) 0.4 10^3/uL (0.2-0.9) 12/14/21 20: Eos # (Auto) 0.2 10^3/uL (0.0-0.8) 12/14/21 20: Baso # (Auto) 0.0 10^3/uL (0.0-0.1) 12/14/21:30 Nucleated RBC % (auto) 0 % 12/14/21 20:30 Nucleated RBCs # 0.0 /100WBC 12/14/21 20:30 Specimen Type Arterial 12/14/21 21:06 Sample Site Radial, left 12/14/21 21:06 ABG pH 7.35 (7.35-7.45) 12/14/21 21:06 ABG pCO2 44.0 mmHg (35-45) 12/14/21 21:06 ABG pO2 71.6 mmHg (80.0-100.0) L 12/14/21 21:06 ABG HCO3 24.3 mmol/L (22-26) 12/14/21 21:06 ABG Base Excess -1.5 mmol/L (-2.0-2.0) 12/14/21 21:06 Hal Test Pos 12/14/21 21:06 Hematocrit 41.9 % (37-47) 12/14/21 21:06 O2 Delivery Device Room air 12/14/21 21:06 Commercial Escrow Assistant ID Buttr 12/14/21 21:06 Sodium 139 mmol/L (136-145) 12/14/21 21:08 Potassium 4.1 mmol/L (3.5-5.1) 12/14/21 21:08 Chloride 104 mmol/L (98-107) 12/14/21 21:08 Carbon Dioxide 23 mmol/L (22-29) 12/14/21 21:08 Anion Gap 16.1 (5-19) 12/14/21 21:08 BUN 14 mg/dL (8-23) 12/14/21 21:08 Creatinine 0.6 mg/dL (0.5-0.9) 12/14/21 21:08 GFR Calculation 101.0 mL/min (90-130) 12/14/21 21:08 Glucose 123 mg/dL (65-115) H 12/14/21 21:08 POC Glucose 123 mg/dL (70-110) H 12/14/21 21:19 Calculated Osmolality 290 mOsm/kg (285-295) 12/14/21 21:08 Calcium 9.2 mg/dL (8.5-10.5) 12/14/21 21:08 Magnesium 2.0 mg/dL (1.7-2.3) 12/14/21 21:08 Total Bilirubin 0.3 mg/dL (0.15-1.2) 12/14/21 21:08 AST 14 U/L (0-32) 12/14/21 21:08 ALT 10 U/L (0-33) 12/14/21 21:08 Alkaline Phosphatase 114 IU/L (35-105) H 12/14/21 21:08 Ammonia 18 umol/L (11-51) 12/14/21 21:45 Troponin T Baseline 17 ng/L (0-10) H 12/14/21 21:08 Troponin T 120 Minute 15.77 ng/L (0-10) H 12/14/21 23:30 Delta Troponin T -1.23 ABS# (0-10) L 12/14/21 23:30 C-Reactive Protein 25.4 mg/L (0.0-4.9) H 12/14/21 21:08 NT-Pro-B Natriuret Pep 359 pg/mL (0-125) H 12/14/21 21:08 Total Protein 7.2 g/dL (6.6-8.7) 12/14/21 21:08 Albumin 4.0 g/dL (3.5-5.2) 12/14/21 21:08 Globulin 3.2 g/dL (1.3-4.6) 12/14/21 21:08 Procalcitonin 0.07 ng/mL (0-0.5) 12/14/21 21:08 TSH 1.07 uIU/mL (0.27-4.20) 12/14/21 21:08 Urine Color Yellow (Yellow) 12/14/21 21:45 Urine Appearance Clear (CLEAR) 12/14/21 21:45 Urine pH 8 (5-7) H 12/14/21 21:45 Ur Specific [place] 1.010 (1.005-1.030) 12/14/21 21:45 Urine Protein Neg (Negative) 12/14/21 21:45 Urine Glucose (UA) Norm (Normal) 12/14/21 21:45 Urine Ketones Negative (Negative) 12/14/21 21:45 Urine Blood Neg (Negative) 12/14/21 21:45 Urine Nitrate Negative (Negative) 12/14/21 21:45 Urine Bilirubin Neg (Negative) 12/14/21 21:45 Prot Sulfosalicylic Acd Negative (Negative) 12/14/21 21:45 Urine Urobilinogen Norm mg/dL (Negative) 12/14/21 21:45 Ur Leukocyte Esterase Negative (Negative) 12/14/21 21:45 Salicylates < 0.3 mg/dL (3-10) L 12/14/21 21:08 Urine Opiates Screen Positive ng/mL (Negative) H 12/14/21 21:45 Acetaminophen < 5.0 ug/mL (10-30) L 12/14/21 21:08 Ur Barbiturates Screen Negative ng/mL (Negative) 12/14/21 21:45 Ur Phencyclidine Scrn Negative ng/mL (Negative) 12/14/21 21:45 Ur Amphetamines Screen Negative ng/mL (Negative) 12/14/21 21:45 U Benzodiazepines Scrn Positive ng/mL (Negative) H 12/14/21 21:45 Urine Cocaine Screen Negative ng/mL (Negative) 12/14/21 21:45 U Marijuana (THC) Screen Negative ng/mL (Negative) 12/14/21 21:45 Ethyl Alcohol < 10 mg/dL (0-10) 12/14/21 21:08 Discharge Plan Discharge Patient Disposition: Placed in Observation Admit Provider: Yu Fonseca Clinical Impression: Altered mental status, At risk for polypharmacy Discharge Diet: Cardiac Discharge Activity: Limit activity as instructed, Use walker/crutches as instructed and Wheelchair as instructed Coding Level of Care Code ED Special Shopper for Jade Fwd Exam Comprehensive
--- NOTE | 2021-12-14 20:41 | CTR_ITS ---
PROCEDURE INFORMATION: Exam: CT Head Without Contrast Exam date and time: 12/14/2021 8:51 PM Age: 61 years old Clinical indication: Altered mental status/memory loss; Confusion or disorientation; Additional info: AMS TECHNIQUE: Imaging protocol: Computed tomography of the head without contrast. Radiation optimization: All CT scans at this facility use at least one of these dose optimization techniques: automated exposure control; mA and/or kV adjustment per patient size (includes targeted exams where dose is matched to clinical indication); or iterative reconstruction. COMPARISON: CT head wo con* [id number] 10/06/2021 6:07 PM RADIATION DOSE METRICS: Total DLP (mGy-cm): 1369.51 FINDINGS: Brain: No significant white matter disease.. Tiny punctate bilateral basal ganglia hypodensities are stable, likely chronic lacunar infarcts. There is minimal brain parenchymal atrophy. No acute intracranial hemorrhage, mass effect or midline shift. Cerebral ventricles: No pathologic ventricular dilatation. Paranasal sinuses: Visualized sinuses are unremarkable. No fluid levels. Mastoid air cells: Visualized mastoid air cells are well aerated. Bones/joints: Unremarkable. No acute fracture. Soft tissues: Unremarkable. CT/CT head wo con* [id number] IMPRESSION: No acute intracranial findings.
--- NOTE | 2021-12-14 20:41 | XRR_ITS ---
PROCEDURE INFORMATION: Exam: XR Chest Exam date and time: 12/14/2021 8:47 PM Age: 61 years old Clinical indication: Other: AMS TECHNIQUE: Imaging protocol: Radiologic exam of the chest. Views: 1 view. COMPARISON: CR XR chest 1V portable [id number] 10/30/2020 6:00 PM FINDINGS: Lungs: There is no evidence of focal pulmonary consolidation. There are low lung volumes. Pleural spaces: No pleural effusion or pneumothorax. Heart/Mediastinum: The heart is normal in size. Vasculature: There is redemonstration of a tortuous, on coronal and possibly ectatic aorta. Bones/joints: There is redemonstration of posterior thoracolumbar fusion. XR/XR chest 1V portable [id number] IMPRESSION: 1. No acute cardiopulmonary findings. 2. Low lung volumes. 3. Tortuous, possibly ectatic (mildly dilated) thoracic aorta.
--- NOTE | 2021-12-14 20:42 | ECG_ITS ---
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 Measurements Intervals [place] Rate: 70 P: 2 AL: 145 QRS: -10 QRSD: 105 T: 55 QT: 414 QTc: 449 Interpretive Statements SINUS RHYTHM Compared to ECG 10/06/2021 19:58:54 No significant changes Electronically Signed On 12-15-2021 8:40:43 CDT by Chris Rizo M.D. [id number]
[2021-12-14 20:53] LABS: Basophils % 0.6 %; Eosinophils # 0.2 10^3/uL (0.0-0.8); Eosinophils % 2.2 %; Hematocrit 42.5 % (37.0-47.0); Hemoglobin 13.9 g/dL (11.5-15.3); Lymphocytes # 1.5 10^3/uL (0.8-4.8); Lymphocytes % 21.4 %; Mean Corpuscular HGB Conc 32.7 g/dL (30.0-36.0); Mean Corpuscular Volume 91.8 fl (81-99); Mean Platelet Volume 10.2 fL (7.4-10.4); Monocytes # 0.4 10^3/uL (0.2-0.9); Monocytes % 5.4 %; Neutrophils # 4.75 10^3/uL (1.8-7.7); Nucleated Red Blood Cells % 0 %; Platelet Count 271 10^3/cmm (130-400); Red Blood Count 4.63 10^6/uL (4.1-5.3); Red Cell Distribution Width 12.9 % (12.1-15.1); White Blood Count 6.8 10^3/uL (4.0-10.0)
[2021-12-14 21:18] LABS: ABG PH Result 7.35 (7.35-7.45); Arterial Blood Gas Hematocrit 41.9 % (37-47); Base Excess ABG -1.5 mmol/L (-2.0-2.0); Blood Gas Allen Test Pos; Blood Gas Sample Site Radial, left; Blood Gas Sample Type Arterial; HCO3 ABG 24.3 mmol/L (22-26); Oxygen Device ROOM AIR; PO2 ABG 71.6 mmHg (80.0-100.0)
[2021-12-14 21:22] LABS: Glucose Point of Care 123 mg/dL (70-110)
[2021-12-14 21:42] LABS: Troponin(5th) Baseline 17 ng/L (0-10)
[2021-12-14 21:48] LABS: NT Pro B Type Natriuretic Pept 359 pg/mL (0-125); Procalcitonin 0.07 ng/mL (0-0.5); Thyroid Stimulating Hormone 1.07 uIU/mL (0.27-4.20)
[2021-12-14 21:54] LABS: Add Urine Microscopic? NO; Charge for UA Resulting for Rev
[2021-12-14 22:00] VITALS: RESP 20
[2021-12-14 22:00] LABS: Alanine Aminotransferase 10 U/L (0-33); Alkaline Phosphatase 114 IU/L (35-105); Anion Gap 16.1 (5-19); Aspartate Amino Transferase 14 U/L (0-32); Blood Urea Nitrogen 14 mg/dL (8-23); C Reactive Protein 25.4 mg/L (0.0-4.9); Calcium 9.2 mg/dL (8.5-10.5); Carbon Dioxide 23 mmol/L (22-29); Chloride 104 mmol/L (98-107); Globulin 3.2 g/dL (1.3-4.6); Glucose 123 mg/dL (65-115); Osmolality Calculated 290 mOsm/kg (285-295); Potassium 4.1 mmol/L (3.5-5.1); Sodium 139 mmol/L (136-145); Total Bilirubin 0.3 mg/dL (0.15-1.2); Total Protein 7.2 g/dL (6.6-8.7)
[2021-12-14] MEDS: morphine 4 mg/mL SDV 1 mL IVP (22:00)
[2021-12-14 22:03] VITALS: BP 154/78; PULSE 71; RESP 18; O2SAT 97
[2021-12-14 22:08] LABS: Acetaminophen < 5.0 ug/mL (10-30); Alcohol Level < 10 mg/dL (0-10); Salicylate < 0.3 mg/dL (3-10)
[2021-12-14 22:08] LABS: Ammonia 18 umol/L (11-51)
[2021-12-14 22:09] LABS: Urine Appearance Clear (CLEAR); Urine Color Yellow (Yellow); pH Urine 8 (5-7)
[2021-12-14 22:10] LABS: Bilirubin Urine Neg (Negative); Blood Urine Neg (Negative); Glucose Urine UA Norm (Normal); Ketones Urine Negative (Negative); Leukocyte Esterase Urine Negative (Negative); Nitrate Urine Negative (Negative); Protein Urine Neg (Negative); Sulfosalicylic Acid Urine Negative (Negative); Urobilinogen Urine Norm (Negative)
[2021-12-14 22:12] LABS: Amphetamines Screen Urine Negative (Negative); Barbiturates Screen Urine Negative (Negative); Benzodiazepines Screen Urine Positive (Negative); Cocaine Screen Urine Negative (Negative); Opiate Screen Urine Positive (Negative); PCP Screen Urine Negative (Negative); THC Screen Urine Negative (Negative)
[2021-12-14 23:40] VITALS: BP 158/90; PULSE 76; RESP 14; O2SAT 98
[2021-12-14 23:53] LABS: Troponin 5 2HR 15.77 ng/L (0-10)
[2021-12-14 23:56] LABS: Troponin 5 2HR Delta -1.23 ABS# (0-10)
[2021-12-15] VITALS (9 sets, daily range): BP systolic 117–148; BP diastolic 71–89; PULSE 69–84; RESP 17–18; TEMP 36.7–37.2; O2SAT 95–100; BMI 31.0
--- NOTE | 2021-12-15 00:59 | PC.NURSE ---
patient presents wit c/o of lower back pain states she is to have surgery soon d/t to compression fx from a fall. patient states that since wednesday she has felt confused. patient is having difficulty finding some words but is alert and oriented x4. Patient states she needs a wheelchair in order to get around. patient states she has a friend that comes to help her once a day and brings her dinner. patient states otherwise she only drinks protein drinks because she cannot get to the kitchen for food. patient is requesting pain medication
[2021-12-15] MEDS: HYDROcodone-acetaminophen 5-325 mg Tablet 1 TAB PO ×3 (01:19→11:17)
[2021-12-15] MEDS: HYDROmorphone 1 mg/mL INJ 1 mL 0.4 MG IVP (01:19)
--- NOTE | 2021-12-15 02:42 | ECG_ITS ---
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 Measurements Intervals [place] Rate: 78 P: 39 IA: 172 QRS: -11 QRSD: 100 T: 52 QT: 397 QTc: 455 Interpretive Statements SINUS RHYTHM Compared to ECG 12/14/2021 21:13:38 No significant changes Electronically Signed On 12-15-2021 8:49:16 CDT by Chris Rizo M.D. [email or web address].[email or web address]/store/[id number]
[2021-12-15] MEDS: morphine 4 mg/mL SDV 1 mL 2 MG IVP ×2 (03:21→08:41)
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
--- NOTE | 2021-12-15 04:30 | PC.NURSE ---
patient refuses to turn from right side she states she needs to be on that side d/t pain patient given pain meds prn, ice packs and pillow for positioning
[2021-12-15 05:15] LABS: Troponin 5 6HR 17.53 ng/L (0-10)
[2021-12-15 05:17] LABS: Troponin 5 6HR Delta 0.53 ng/L (0-12)
--- NOTE | 2021-12-15 05:22 | USR_ITS ---
PROCEDURE INFORMATION: Exam: US Duplex Bilateral Extracranial Arteries, Carotid Arteries Exam date and time: 12/15/2021 6:00 AM Age: 61 years old Clinical indication: Alteration of consciousness; Syncope and collapse; Patient HX: AMS; Additional info: TIA TECHNIQUE: Imaging protocol: Real-time Duplex ultrasound scan of the bilateral carotid and vertebral arteries combining simmons scale, color Doppler and spectral waveform analysis. Bilateral exam. Exam focused on the carotid arteries. COMPARISON: CT head wo con* [id number] 12/14/2021 8:51 PM FINDINGS: Right common carotid artery: Minimal plaque. Proximal 91.5 cm/second. Mid 45.4 cm/second. Distal 59.2 cm/second. Right internal carotid artery: Proximal 65.8 cm/second. Mid 68.4 cm/second. Distal 35.5 cm/second. Right ICA/CCA ratio: 151.1. Right external carotid artery: 40.0 cm/second. Right vertebral artery: 64.1 cm/second, antegrade. Left common carotid artery: Minimal plaque. Proximal 96.0 cm/second. Mid 58.3 cm/second. Distal 66.0 cm/second. Left internal carotid artery: Proximal 56.7 cm/second. Mid 61.4 cm/second. Distal 83.1 cm/second. Left ICA/CCA ratio: 143.3. Left external carotid artery: 76.9 cm/second. Left vertebral artery: 59.0 cm/second, antegrade. Other findings: Right proximal subclavian: 114.4 cm/second, triphasic. Left proximal subclavian: 176.7 cm/second, triphasic. US/CV carotid duplex BI* [id number] IMPRESSION: No hemodynamically significant stenosis by peak systolic velocity criteria. REFERENCES: SRU CRITERIA. The degree of internal carotid artery stenosis is based on criteria defined by the Society of Radiologists in Ultrasound (SRU). Normal is no stenosis. Mild is less than 50% stenosis. Moderate is 50-69% stenosis. Severe is greater than 69% stenosis to near occlusion. Near occlusion is a markedly narrowed lumen. Total occlusion is no detectable patent lumen.
[2021-12-15] MEDS: levothyroxine 50 mcg Tablet PO (08:39)
[2021-12-15] MEDS: pantoprazole DR 40 mg Tablet PO (08:39)
[2021-12-15] MEDS: propranolol 40 mg Tablet PO ×2 (08:39→17:32)
[2021-12-15] MEDS: duloxetine 60 mg Capsule PO (08:39)
[2021-12-15] MEDS: topiramate 25 mg Tablet PO (08:40)
--- NOTE | 2021-12-15 10:38 | PC.CHAP ---
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 surveillance agent visit [] Patient/Family/Request visit [] Outpatient visit [] Follow-up visit [] Physician referral [] Code/Alert [x] Routine visit [] Staff referral [] Actively dying [] Patient sleeping [] Family support [] [] Out of room [] Palliative care [] [] Receiving care in room [] Pre-surgical visit [] Trauma [] Long length of stay [] ICU visit [] Other: Relational/Emotional Strength [x] Patient feels connected with others/family/visitors/staff [] Distress [] Loneliness/isolation [] Abandonment Spirituality of Patient [x] Person of Dayanna [] Attends Muslim of their Dayanna [x] Believes in Prayer [] Reads Bible or Zoroastrianism materials [] There are Spiritual issues to be addressed Communications Intern Interventions [x] Prayer [x] Active listening [] Non-anxious presence [] Spiritual/emotional support [] Crisis/trauma care [] Spiritual counseling [] Bereavement support [] Provided bereavement packet [] Provided Bible/devotional materials [] Provided toy/stuffed animal, coloring book to patient or family member [] Provided Communion [] Anointing/[place] [] Salvation [x] Completed spiritual assessment [] Other: Impact on Illness or Injury [] Angry [] Fearful [] Anxious [] Often cries [] Exhaustion [] Unable to work [] Unable to attend quaker [] Unable to walk/stand [] Unable to read [] Unable to drive [] Unable to eat/drink [] Unable to sleep [] Unable to be with family [] Patient intubated [] Other: Summary Time spent with patient 10 min
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
[2021-12-15] MEDS: HYDROcodone-acetaminophen 5-325 mg Tablet 2 TAB PO ×2 (14:46→20:13)
[2021-12-15] MEDS: oxybutynin chloride XL 5 MG TABLET 10 MG PO (17:32)
[2021-12-15] MEDS: topiramate 25 mg Tablet 50 MG PO (17:32)
--- NOTE | 2021-12-15 18:27 | PC.NURSE ---
Patient resting in bed, OOBT BSC, moved rooms this day. VSS, AAOx4, c/o pain frequently and does typically go to sleep after receiving ordered pain medications. Patient complains that she got no sleep with previous room mate so is excited to be getting sleep today. Patient continues to ask staff for ice for pain but refuses to remove it from areas of body after maximum recommended time and patients skin is blanchable erythrema. Patient acknowledges that this could create skin breakdown and still demands to have ice packs. Room is clean and clutter free with call light in reach. Patient has refused several turns throughout shift. Will report to oncoming nurse at bedside at shift change.
[2021-12-15] MEDS: baclofen 10 mg Tablet 20 MG PO (20:22)
[2021-12-15] MEDS: meloxicam 7.5 mg tablet PO (22:43)
[2021-12-16] MEDS: HYDROcodone-acetaminophen 5-325 mg Tablet 2 TAB PO ×4 (00:23→12:06)
[2021-12-16 04:00] VITALS: BP 122/74; PULSE 75; RESP 17; TEMP 36.8; O2SAT 93
[2021-12-16 04:03] LABS: Basophils # 0.1 10^3/uL (0.0-0.1); Basophils % 1.2 %; Eosinophils # 0.1 10^3/uL (0.0-0.8); Eosinophils % 1.3 %; Hematocrit 39.1 % (37.0-47.0); Hemoglobin 13.2 g/dL (11.5-15.3); Lymphocytes % 32.7 %; Mean Corpuscular HGB Conc 33.8 g/dL (30.0-36.0); Mean Corpuscular Hemoglobin 29.7 pg (28.0-34.0); Mean Corpuscular Volume 88.1 fl (81-99); Mean Platelet Volume 9.8 fL (7.4-10.4); Monocytes # 0.4 10^3/uL (0.2-0.9); Monocytes % 6.9 %; Neutrophils % 57.6 %; Nucleated Red Blood Cells % 0 %; Platelet Count 252 10^3/cmm (130-400); Red Blood Count 4.44 10^6/uL (4.1-5.3); Red Cell Distribution Width 12.5 % (12.1-15.1); White Blood Count 6.1 10^3/uL (4.0-10.0)
[2021-12-16 04:28] LABS: Anion Gap 15.6 (5-19); Blood Urea Nitrogen 11 mg/dL (8-23); Calcium 8.8 mg/dL (8.5-10.5); Carbon Dioxide 20 mmol/L (22-29); Chloride 105 mmol/L (98-107); Glomerular Filtration Rate 124.6 mL/min (90-130); Glucose 100 mg/dL (65-115); Osmolality Calculated 283 mOsm/kg (285-295); Potassium 3.6 mmol/L (3.5-5.1); Sodium 137 mmol/L (136-145)
[2021-12-16] MEDS: SUMAtriptan 25 mg Tablet 50 MG PO (04:36)
[2021-12-16 07:31] VITALS: BP 129/79; PULSE 68; RESP 14; TEMP 36.9; O2SAT 94
[2021-12-16] MEDS: topiramate 25 mg Tablet PO (08:45)
[2021-12-16] MEDS: levothyroxine 50 mcg Tablet PO (08:46)
[2021-12-16] MEDS: propranolol 40 mg Tablet PO (08:46)
[2021-12-16] MEDS: pantoprazole DR 40 mg Tablet PO (08:47)
[2021-12-16] MEDS: duloxetine 60 mg Capsule PO (08:47)
--- NOTE | 2021-12-16 11:05 | P.DS_ITS ---
Discharge Providers Date of Admission: 12/15/21 00:41 Date of Discharge: December 16, 2021 Attending Provider at Admission: Yu Fonseca MD Attending Provider at Discharge: Marguerite Jules MD Primary Care Provider: Charity Salazar MD Diagnoses at Discharge Discharge Diagnosis (1) Altered mental status: Status: Acute (2) At risk for polypharmacy: Status: Acute Reason for Visit Reason for Visit: AMS Hospital Course Hospital Course 60-year-old female who has a history of degenerative vertebral disease, has been seeing Dr. Stoll outpatient, she has an upcoming appointment with Dr. Stoll for her lower back pain, at home she was not able to sleep that prompted her visit to the ER after her friend noticed mild confusion. Her symptoms resolved as soon as she was evaluated by the doctor in the ER, she was not able to sleep in the hospital because of her neighbor, her room was changed, she was eventually able to get a few hours of sleep, she has been getting a lot of opioids, mood stabilizers and muscle relaxant which could have contributed to her transient altered mental status. She did very well with catching up on her sleep. Carotid Dopplers unremarkable CT head unremarkable. No active signs of stroke. She has an appointment with Dr. Stoll this . Dr. Stoll is not on-call this week. She will be discharged home in stable condition I would not refill any of her opioids. Physical Exam Narrative: Patient is comfortable today Not in any active distress Tries to avoid ambulation on her own because of her lower back pain Does complain of neuropathic pain of her legs Does not have focal neurological deficit Saturating well on room air Blood pressure is stable Abdomen soft Discharge Data Studies Completed and Pending Completed Studies During Hospitalization Category Date Time Status CT head wo con* [id number] Stat Cat Scan 12/14/21 20:41 Completed XR chest 1V portable [id number] Urgent Exams 12/14/21 20:41 Completed CV carotid duplex BI* [id number] Routine Ultrasound 12/15/21 05:22 Completed Radiology Impressions Chest X-Ray 12/14/21 20:41 IMPRESSION: 1. No acute cardiopulmonary findings. 2. Low lung volumes. 3. Tortuous, possibly ectatic (mildly dilated) thoracic aorta. Head CT 12/14/21 20:41 IMPRESSION: No acute intracranial findings. Carotid Doppler Study 12/15/21 05:22 IMPRESSION: No hemodynamically significant stenosis by peak systolic velocity criteria. REFERENCES: SRU CRITERIA. The degree of internal carotid artery stenosis is based on criteria defined by the Society of Radiologists in Ultrasound (SRU). Normal is no stenosis. Mild is less than 50% stenosis. Moderate is 50-69% stenosis. Severe is greater than 69% stenosis to near occlusion. Near occlusion is a markedly narrowed lumen. Total occlusion is no detectable patent lumen. Laboratory Results WBC 6.1 10^3/uL (4.0-10.0) 12/16/21 03:34 RBC 4.44 10^6/uL (4.1-5.3) 12/16/21 03:34 Hgb 13.2 g/dL (11.5-15.3) 12/16/21 03:34 Hct 39.1 % (37.0-47.0) 12/16/21 03:34 MCV 88.1 fl (81-99) 12/16/21 03:34 MCH 29.7 pg (28.0-34.0) 12/16/21 03:34 MCHC 33.8 g/dL (30.0-36.0) 12/16/21 03:34 RDW 12.5 % (12.1-15.1) 12/16/21 03:34 Plt Count 252 10^3/cmm (130-400) 12/16/21 03:34 MPV 9.8 fL (7.4-10.4) 12/16/21 03:34 Neut % (Auto) 57.6 % 12/16/21 03:34 Lymph % (Auto) 32.7 % 12/16/21 03:34 Alpine % (Auto) 6.9 % 12/16/21 03:34 Eos % (Auto) 1.3 % 12/16/21 03:34 Baso % (Auto) 1.2 % 12/16/21 03:34 Neut # (Auto) 3.50 10^3/uL (1.8-7.7) 12/16/21 03:34 Lymph # (Auto) 2.0 10^3/uL (0.8-4.8) 12/16/21 03:34 Alpine # (Auto) 0.4 10^3/uL (0.2-0.9) 12/16/21 03:34 Eos # (Auto) 0.1 10^3/uL (0.0-0.8) 12/16/21 03:34 Baso # (Auto) 0.1 10^3/uL (0.0-0.1) 12/16/21 03:34 Nucleated RBC % (auto) 0 % 12/16/21 03:34 Nucleated RBCs # 0.0 /100WBC 12/16/21 03:34 Specimen Type Arterial 12/14/21 21:06 Sample Site Radial, left 12/14/21 21:06 ABG pH 7.35 (7.35-7.45) 12/14/21 21:06 ABG pCO2 44.0 mmHg (35-45) 12/14/21 21:06 ABG pO2 71.6 mmHg (80.0-100.0) L 12/14/21 21:06 ABG HCO3 24.3 mmol/L (22-26) 12/14/21 21:06 ABG Base Excess -1.5 mmol/L (-2.0-2.0) 12/14/21 21:06 Hal Test Pos 12/14/21 21:06 Hematocrit 41.9 % (37-47) 12/14/21 21:06 O2 Delivery Device Room air 12/14/21 21:06 [employer] ID Buttr 12/14/21 21:06 Sodium 137 mmol/L (136-145) 12/16/21 03:34 Potassium 3.6 mmol/L (3.5-5.1) 12/16/21 03:34 Chloride 105 mmol/L (98-107) 12/16/21 03:34 Carbon Dioxide 20 mmol/L (22-29) L 12/16/21 03:34 Anion Gap 15.6 (5-19) 12/16/21 03:34 BUN 11 mg/dL (8-23) 12/16/21 03:34 Creatinine 0.5 mg/dL (0.5-0.9) 12/16/21 03:34 GFR Calculation 124.6 mL/min (90-130) 12/16/21 03:34 Glucose 100 mg/dL (65-115) 12/16/21 03:34 POC Glucose 123 mg/dL (70-110) H 12/14/21 21:19 Calculated Osmolality 283 mOsm/kg (285-295) L 12/16/21 03:34 Calcium 8.8 mg/dL (8.5-10.5) 12/16/21 03:34 Magnesium 2.0 mg/dL (1.7-2.3) 12/14/21 21:08 Total Bilirubin 0.3 mg/dL (0.15-1.2) 12/14/21 21:08 AST 14 U/L (0-32) 12/14/21 21:08 ALT 10 U/L (0-33) 12/14/21 21:08 Alkaline Phosphatase 114 IU/L (35-105) H 12/14/21 21:08 Ammonia 18 umol/L (11-51) 12/14/21 21:45 Troponin T Baseline 17 ng/L (0-10) H 12/14/21 21:08 Troponin T 120 Minute 15.77 ng/L (0-10) H 12/14/21 23:30 Delta Troponin T -1.23 ABS# (0-10) L 12/14/21 23:30 Troponin T Hi Sens 6Hr 17.53 ng/L (0-10) H 12/15/21 03:50 Troponin T Hi Sens 6Hr Delta 0.53 ng/L (0-12) 12/15/21 03:50 C-Reactive Protein 25.4 mg/L (0.0-4.9) H 12/14/21 21:08 NT-Pro-B Natriuret Pep 359 pg/mL (0-125) H 12/14/21 21:08 Total Protein 7.2 g/dL (6.6-8.7) 12/14/21 21:08 Albumin 4.0 g/dL (3.5-5.2) 12/14/21 21:08 Globulin 3.2 g/dL (1.3-4.6) 12/14/21 21:08 Procalcitonin 0.07 ng/mL (0-0.5) 12/14/21 21:08 TSH 1.07 uIU/mL (0.27-4.20) 12/14/21 21:08 Urine Color Yellow (Yellow) 12/14/21 21:45 Urine Appearance Clear (CLEAR) 12/14/21 21:45 Urine pH 8 (5-7) H 12/14/21 21:45 Ur Specific [place] 1.010 (1.005-1.030) 12/14/21 21:45 Urine Protein Neg (Negative) 12/14/21 21:45 Urine Glucose (UA) Norm (Normal) 12/14/21 21:45 Urine Ketones Negative (Negative) 12/14/21 21:45 Urine Blood Neg (Negative) 12/14/21 21:45 Urine Nitrate Negative (Negative) 12/14/21 21:45 Urine Bilirubin Neg (Negative) 12/14/21 21:45 Prot Sulfosalicylic Acd Negative (Negative) 12/14/21 21:45 Urine Urobilinogen Norm mg/dL (Negative) 12/14/21 21:45 Ur Leukocyte Esterase Negative (Negative) 12/14/21 21:45 Salicylates < 0.3 mg/dL (3-10) L 12/14/21 21:08 Urine Opiates Screen Positive ng/mL (Negative) H 12/14/21 21:45 Acetaminophen < 5.0 ug/mL (10-30) L 12/14/21 21:08 Ur Barbiturates Screen Negative ng/mL (Negative) 12/14/21 21:45 Ur Phencyclidine Scrn Negative ng/mL (Negative) 12/14/21 21:45 Ur Amphetamines Screen Negative ng/mL (Negative) 12/14/21 21:45 U Benzodiazepines Scrn Positive ng/mL (Negative) H 12/14/21 21:45 Urine Cocaine Screen Negative ng/mL (Negative) 12/14/21 21:45 U Marijuana (THC) Screen Negative ng/mL (Negative) 12/14/21 21:45 Ethyl Alcohol < 10 mg/dL (0-10) 12/14/21 21:08 Vitals Last Vital Signs Temp 98.5 F 12/16/21 07:31 Pulse 68 12/16/21 07:31 Resp 14 12/16/21 07:31 BP 129/79 12/16/21 07:31 Pulse Ox 94 12/16/21 07:31 Discharge Plan Discharge Patient Disposition: Home Condition: Stable Prescriptions: Continued oxybutynin chloride 5 mg tablet See Rx Instructions .ROUTE .COMPLEX 0RF Rx Instructions: 5 mg orally in morning; 10mg HS baclofen 20 mg tablet 20 mg PO QID PRN (Reason: spasms) 30 Days Qty: 120 1RF levothyroxine 50 mcg capsule 50 mcg PO QDAY 0RF topiramate 50 mg tablet 50 mg PO QPM 0RF propranolol 40 mg tablet 40 mg PO BID 0RF verapamil 120 mg tablet 120 mg PO DAILY 0RF duloxetine [Cymbalta] 30 mg capsule,delayed release(DR/EC) 60 mg PO QDAY 0RF topiramate 25 mg tablet 25 mg PO DAILY 0RF gabapentin 300 mg capsule 300 mg PO TID 0RF meloxicam 7.5 mg tablet 7.5 mg PO BID 0RF oxybutynin chloride 10 mg tablet extended release 24hr 10 mg PO QPM 0RF hydrocodone-acetaminophen 10-325 mg Tablet See Rx Instructions .ROUTE .COMPLEX PRN (Reason: Pain) 0RF Rx Instructions: 1 - 2 tab orally every 4-6 hours as needed for pain *max of six per day, hold within 4HRS of planned sleep for 30 days* sumatriptan succinate 50 mg Tablet 50 mg PO Q2H PRN (Reason: Migraine Headache) 0RF Rx Instructions: do not exceed 4 doses per 24 hrs Discharge Orders: Discharge Order (Routine); Ordered 12/16/21 Ordered By: Marguerite Jules Referrals: Charity Salazar MD [Primary Care Provider] - Discharge Diet: Cardiac Discharge Activity: Limit activity as instructed, Use walker/crutches as instructed and Wheelchair as instructed Patient Instructions: Opioid Safety Discharge Attestations Time Spent in Discharge Care*: less than 30 min Quality Metrics Clinical Quality Measures [ No reported AMI, CVA or VTE this stay] Coding Level of Care Code Acute Chg FW DC note Diagnoses Altered mental status R41.82 At risk for polypharmacy Z91.89
[2021-12-16] MEDS: baclofen 10 mg Tablet 20 MG PO (11:22)
[2021-12-16 11:47] VITALS: BP 142/89; PULSE 66; RESP 16; TEMP 37; O2SAT 96
== END 2021-12-16 13:15 | disposition home or self-care (01) ==
LOC: ER 22:52 → MEDSURG 12-15 00:21
PROVIDERS: Admitting Provider Student in an Organized Health Care Education/Training Program; Emergency Provider Emergency Medicine; PCP Internal Medicine; Visit Provider Internal Medicine
DX: R41.82 Altered mental status, unspecified (principal); Z91.89 Other specified personal risk factors, not elsewhere classified; G89.29 Other chronic pain; M54.9 Dorsalgia, unspecified; Z79.891 Long term (current) use of opiate analgesic; F41.9 Anxiety disorder, unspecified; F32.9 Major depressive disorder, single episode, unspecified; I10 Essential (primary) hypertension; E03.9 Hypothyroidism, unspecified
CPT/HCPCS: 36415; 36416; 36600; 70450; 71045; 80048; 80053; 80306; 80307; 81003; 82140; 82803; 82962; 83735; 83880; 84145; 84443; 84484; 85025; 86140; 93005; 93880; 96374; 96375; 96376; 99285; G0378; J1170; J2270

== ENCOUNTER → 2021-12-18 14:22 | Outpatient (BNVA) | payer MEDICARE, SELFPAY | PROVIDERS: PCP Internal Medicine; Visit Provider Orthopaedic Surgery | DX: M48.062 Spinal stenosis, lumbar region with neurogenic claudication (principal) | CPT/HCPCS: 99214 ==

== ENCOUNTER → 2022-01-06 12:48 | Outpatient (BNVA) | payer MEDICARE, SELFPAY | PROVIDERS: PCP Internal Medicine; Visit Provider Orthopaedic Surgery | DX: M48.062 Spinal stenosis, lumbar region with neurogenic claudication (principal) | CPT/HCPCS: 99024; 99213 ==

== ENCOUNTER 2022-01-12 16:55 | Inpatient (IN) | payer MEDICARE, SELFPAY ==
[2022-01-09 10:45] VITALS: BMI 29.5
--- NOTE | 2022-01-09 13:47 | ANES.PREANE2 ---
Pre-Anesthetic Assessment Height/Weight: Height 1.75 m Weight 90.718 kg Preop Diagnosis: T12 Burst Fracture Operation Date: 01/12/22 11:15 Proposed Procedures p Posterior Spinal Fusion t9 to pelvis [id number](Not Applicable) - Cristian Stoll DO s Posterior Lumbar Interbody Fusion M48.062 L5-S1 DECOMPRESSION L4/5 AND L5-S1(Not Applicable) - Cristian Stoll DO Familial anesthetic complications: none Was Beta Sandie taken within 24 hours: Yes Was Clonidine taken within 24 hours: N/A Social No alcohol and No tobacco Exam alert, oriented x 3, clear to auscultation bilaterally and regular rate & rhythm Airway Submandibular: within normal limits Cervical ROM: within normal limits Mallampati: Class II Comments: Comments: missing molars Pulmonary None reported CV/HEM Anemia and None reported Carotid doppler 12/15/21 US/CV carotid duplex BI* [id number] IMPRESSION: No hemodynamically significant stenosis by peak systolic velocity criteria. ? None reported Hepatic None reported GI None reported Metabolic None reported Musc/skel Lower Back Pain and Osteoarthritis/DJD Lumbar stenosis with neurogenic claudication Burst fx Neuropsych Anxiety and Depression Anesthetic Plan ASA status: 2 Anesthesia: Anesthesia Evaluation and General Other: We discussed risk and benefits of general anesthesia including PONV, sore throat (sometimes severe), corneal abrasion, positioning and peripheral nerve injuries, life threatening allergic reaction, post operative ICU admission requiring prolonged intubation, aspiration, stroke, heart attack, , and rare incidences of recall. Patient consents to proceed with general anesthesia. Risk of > 500 ml blood loss (7ml/kg in children): No Medications/Allergies Home Medications Medication Instructions Recorded Confirmed Last Taken Type levothyroxine 50 mcg capsule 50 mcg PO QDAY 07/04/19 01/09/22 12/14/21 History propranolol 40 mg tablet 40 mg PO BID 07/04/19 01/09/22 12/14/21 History topiramate 50 mg tablet 50 mg PO QPM 07/04/19 01/09/22 12/14/21 History topiramate 25 mg tablet 25 mg PO DAILY 09/01/19 01/09/22 12/14/21 History verapamil 120 mg tablet 120 mg PO DAILY 09/01/19 01/09/22 12/14/21 History baclofen 20 mg tablet 20 mg PO QID PRN spasms 30 days 05/30/20 01/09/22 12/14/21 Rx #120 tabs duloxetine 30 mg capsule,delayed 60 mg PO QDAY 09/10/20 01/09/22 12/14/21 History release (Cymbalta) gabapentin 300 mg capsule 300 mg PO TID 05/23/21 01/09/22 12/14/21 History meloxicam 7.5 mg tablet 7.5 mg PO BID 05/23/21 01/09/22 12/14/21 History oxybutynin chloride 5 mg tablet See Rx Instructions .Route .COMPLEX 05/23/21 01/09/22 12/14/21 History oxybutynin chloride 10 mg 10 mg PO QPM 10/06/21 01/09/22 12/14/21 History tablet,extended release 24 hr hydrocodone 10 mg-acetaminophen See Rx Instructions .Route 12/15/21 01/09/22 12/14/21 History 325 mg tablet .COMPLEX PRN Pain sumatriptan succinate 50 mg tablet 50 mg PO Q2H PRN Migraine Headache 12/16/21 01/09/22 12/09/21 History alendronate 10 mg tablet 10 mg PO DAILY 01/09/22 01/09/22 Unknown History temazepam 15 mg capsule (Restoril) 15 mg PO BEDTIME 01/09/22 01/09/22 Unknown History Allergies Allergy/AdvReac Type Severity Reaction Status Date / Time Penicillins Allergy RASH Verified 01/06/22 12:51 Sulfa (Sulfonamide Allergy ANAPHYLAXIS Verified 01/06/22 12:51 Antibiotics) [facility] [place] Anesthesia Medical History Altered mental status Anxiety and depression Currently on Cymbalta managed by her primary care provider. At risk for polypharmacy Chronic hypertension Diagnosed at the age of 14 and controlled on medication managed by primary care provider. Chronic low back pain without sciatica Currently on hydrocodone and baclofen managed by the pain clinic Hypothyroid Currently on levothyroxine managed by PMD No pertinent past medical history Denies: hypertension, diabetes, heart, lung, liver, kidney, thyroid, genital herpes, bleeding problems, or clotting problems. her primary care provider is Dr. Salazar Surgical History History of ankle surgery 2006--LEFT x3. In [place] History of back surgery 10/2020---jef placed in back History of dental surgery tooth extraction Hx of section 03/26/89 S/P breast biopsy 2000-left breast-benign Family History Mother Family history of thyroid problem Thyroid condition Diabetes Hypertension Father Brain aneurysm Denies family history of Colon cancer Ovarian cancer DVT (deep venous thrombosis) Heart disease Breast cancer Suicide Pulmonary embolism Uterine cancer Social History Smoking and tobacco status: never smoked Data Anesthesia Cardiac Studies: No Data to Display
[2022-01-12] VITALS (37 sets, daily range): BP systolic 72–145; BP diastolic 48–113; PULSE 62–99; RESP 7–27; TEMP 36.4–37; O2SAT 91–100
--- NOTE | 2022-01-12 | XR_ITS ---
WS: [id number] INTRAOPERATIVE TECHNIQUE: 5 Spot fluoroscopic images for intraoperative purposes. FLUOROSCOPY TIME: 13 seconds CLINICAL INFORMATION: OR PICS/L SPINE FUSION COMPARISON: None. FINDINGS: Pedicle screw fixation with interconnecting rods lower thoracic spine and lumbar spine with sacroilia c fusion. Hardware appears in good position. Pedicle screw fixation extends from T9 through L5. Prior compression fracture T12. XR/XR lumbar spine 2-3V* [id number] IMPRESSION: Images obtained for intraoperative purposes.
--- NOTE | 2022-01-12 10:02 | P.ANESUD_ITS ---
Pre-Anesthetic Update Pre-Anesthetic Assessment: Date of Surgery/Procedure: 01/12/22 Preop Chiquita gnosis: Lumbar stenosis with neurogenic claudication, degenerative scoliosis Proposed Procedure: Operation Date: 01/12/22 11:15 Proposed Procedures p Posterior Spinal Fusion t9 to pelvis [id number](Not Applicable) - Cristian Stoll, DO s Posterior Lumbar Interbody Fusion M48.062 L5-S1 DECOMPRESSION L4/5 AND L5- S1(Not Applicable) - Cristian Stoll, DO Any changes to Pre-Anesthetic Assessment?: No Last Intake: 01/10/22 Exam: Pre-Anes Outpt Exam: alert, oriented x 3, clear to auscultation bilaterally and regular rate & rhythm Cardiac Studies: No Data to Display
[2022-01-12] MEDS: sodium chloride 0.9% 1,000 ML 30 ML IV (10:35)
[2022-01-12 11:04] LABS: Basophils # 0.1 10^3/uL (0.0-0.1); Basophils % 0.9 %; Eosinophils # 0.2 10^3/uL (0.0-0.8); Eosinophils % 3.2 %; Hematocrit 38.4 % (37.0-47.0); Hemoglobin 12.1 g/dL (11.5-15.3); Lymphocytes # 1.7 10^3/uL (0.8-4.8); Lymphocytes % 30.1 %; Mean Corpuscular HGB Conc 31.5 g/dL (30.0-36.0); Mean Corpuscular Hemoglobin 29.8 pg (28.0-34.0); Mean Corpuscular Volume 94.6 fl (81-99); Mean Platelet Volume 9.9 fL (7.4-10.4); Monocytes # 0.4 10^3/uL (0.2-0.9); Monocytes % 7.6 %; Neutrophils # 3.26 10^3/uL (1.8-7.7); Neutrophils % 57.8 %; Nucleated Red Blood Cells % 0 %; Platelet Count 196 10^3/cmm (130-400); Red Blood Count 4.06 10^6/uL (4.1-5.3); Red Cell Distribution Width 13.8 % (12.1-15.1); White Blood Count 5.6 10^3/uL (4.0-10.0)
[2022-01-12] MEDS: fentaNYL 50 mcg/mL INJ 2mL IVP (11:17)
--- NOTE | 2022-01-12 12:14 | P.HPUD_ITS ---
Surgery/Procedure H&P Update DATE OF PROCEDURE: January 12, 2022 DATE H&P PERFORMED: 01/06/22 H&P UPDATE INFORMATION: I have reviewed H&P completed within last 30 days, I have examined patient prior to procedure and No changes to prior documentation PREOP DIAGNOSIS: Lumbar stenosis with neurogenic claudication, degenerative scoliosis PLANNED PROCEDURE: Operation Date: 01/12/22 11:15 Proposed Procedures p Posterior Spinal Fusion t9 to pelvis [id number](Not Applicable) - DO miguel Jacome Posterior Lumbar Interbody Fusion M48.062 L5-S1 DECOMPRESSION L4/5 AND L5- S1(Not Applicable) - Cristian Stoll DO
[2022-01-12] MEDS: clindamycin 900 MG/50 ML PREMIX 100 MG IV ×2 (13:20→21:14)
--- NOTE | 2022-01-12 13:53 | ANES.PROC ---
Anesthesia Procedures Procedure/Date: 01/12/22 Other Information: After several unsuccessful attempts with standard technique US attempt made. Sterile prep and using real time US guidance for vessel selection a 16 g PIV was inserted with real time visualization of needle entry and real time visualization of catheter advancement. Tolerated well. 1 attempt.
[2022-01-12] MEDS: heparin, porcine 1,000 unit/mL INJ 10 mL 10000 UNIT XX (14:23)
[2022-01-12] MEDS: vancomycin 1,000 MG SDV 1000 MG XX (14:24)
[2022-01-12 14:29] LABS: Glucose Urine UA Norm (Normal); Protein Urine 1+ (Negative); Urine Appearance Cloudy (CLEAR); Urine Color Yellow (Yellow); pH Urine 7 (5-7)
[2022-01-12 14:30] LABS: Add Urine Culture? Yes; Add Urine Microscopic? YES; Bacteria Urine 2+ /hpf; Bilirubin Urine Neg (Negative); Blood Urine 3+ (Negative); Ketones Urine Negative (Negative); Leukocyte Esterase Urine 2+ (Negative); Nitrate Urine Positive (Negative); Urobilinogen Urine Norm (Negative); WBC Urine TOO NUMEROUS TO CNT /hpf (0-5)
[2022-01-12 15:25] LABS: Hematocrit 30.9 % (37.0-47.0); Hemoglobin 9.7 g/dL (11.5-15.3)
--- NOTE | 2022-01-12 17:05 | PM.OP ---
Operative Report Date of procedure: January 12, 2022 Pre-op diagnosis: Preop Diagnosis Lumbar stenosis with neurogenic claudication, degenerative scoliosis Post-op diagnosis: same Procedure done: 1.? T9 - pelvis fusioun 2.? T9 - S1 instrumentation 3.? Lumbopelvic fixation 4.? L4/5 laminectomy with partial facetectomy 5.? L5/S1 laminectomy with partial factectomy 6.? use of computer navigation/ stereotactic for spine 7.? bone marrow aspiration of right iliac crest 8.? autograft bone from same incision 9.? allograft 10. Removal of deep spine hardware Surgeon: Cristian Stoll Tape Control Skin Or Spar Mill Operator: Leroy Manriquez Tape Control Skin Or Spar Mill Operator: The surgical garment assembly supervisor, Leroy Manriquez, PAC was needed for his expertise under the microscope. He was important and necessary throughout the procedure to complete in a safe and timely manner. He assisted with patient positioning prepping and draping tissue retraction suctioning of the operative field protection of the dural sac and tissue closure Estimated blood loss (mL): 2,000 Procedure: 1.? L4- pelvis fusioun 2.? L4 - S1 instrumentation 3.? Lumbopelvic fixation 4.? L4/5 laminectomy with partial facetectomy 5.? L5/S1 laminectomy with partial factectomy 6.? use of computer navigation/ stereotactic for spine 7.? bone marrow aspiration of right iliac crest 8.? autograft bone from same incision 9.? allograft Patient was brought to the procedure after undergoing anesthesia was had neuro monitoring placed.? Once neuro monitors placed patient was then flipped into the prone position.? All areas impingement well-padded.? Patient was then prepped and draped no sterile fashion. Skin incision made from T9-S1.? Subperiosteal dissection was made out to the transverse processes of T9 down to L5 and the to the sacral ala.? The screws were replaced from T9-L2 were identified. The screw caps were removed also screw caps remove the rods removed and the screws were backed out. These were 6.5 screws. I re- placed 6.5 screws with some 7.5 screws. Except for at the L2 level I actually put 8.5 screws in. There is a replaced area at T9 bilaterally T10 and 11 bilaterally and L1 and L2 bilaterally. Attention was then brought to bone marrow aspirate from the right iliac crest.? The bone marrow aspiration kit needle was then inserted into the right iliac crest.? Bone marrow was aspirated.? And then the point insert was inserted and then the awl was inserted further.? And then the bone marrow was aspirated in 1 mm increments 20 cc were aspirated.? This was later mixed with the alograft bone which was ostial amp and that the autograft. Extension was brought to placing the fiducial for the computer navigation.? 2 pins were placed into the right iliac crest.? These pins later be removed.? The pins were inserted and then the fiducial was attached.? The C-arm was brought in and spun on the patient and the information that was brought from the C-arm will later be used for the computer navigation placement of the screws. Attension was brought to placing screws.? This was done by using the computer navigated awl.? This is the gearshift awl.? The awl was placed into the S1 pedicle followed by the ball probe to palpate the pedicles wall and then followed by placement of the screw using computer navigation.? This process was repeated at S1 bilaterally, L5 bilateral, and L4 bilaterally and L3 bilaterally. Next attention was brought to placed in the iliac screws.? This was done by using the gearshift awl it was done to the sacral ala iliac technique.? Pedicle probe was then used to palpate to make sure that the gearshift was in the prone position and then the tap was used and then a 90 x 8.5 mm screw was placed into the iliac crest bilaterally. Next attention was brought to performing the laminectomy at L5-S1.? Laminectomies performed using high-speed bur Kerrison rongeurs and the curettes.? Once the lamina was removed attention was then brought to the facets bilaterally.? The L5-S1 facet on the left was taken down with a high-speed bur Kerrison rongeurs and curettes.? And then this was done on the right side as well.? The S1 nerve root was traced around the S1 pedicle.? And then the L5-S1 foramen was palpated and the L5 nerve was felt to be adequately decompressed bilaterally.? Ligamentum flavum was taken off is thick patient has significant mount of fibrous tissue. Attention was then brought to the L4-5 level.? The L4 lamina was taken down with a high-speed bur Kerrison rongeur and curettes the ligamentum flavum was taken down from L4-L5 bilaterally.? The Kerrison rongeur was used to open up the foramen as well as take down the medial aspect of the facet joints bilaterally along with a high-speed bur.? The L4 nerve was traced at the L4-5 foramen to further be adequately compressed.? The L5 nerve was traced around the L5 pedicle bilaterally. Once all the lamina were done being decompressed and the nerves were decompressed attention was then brought to placing rods.? The rods were attached from T9 down to S1 and to the iliac crest.? And caps were placed at all the screws from T9 down to S1 and iliac screw this was done bilaterally.? Once these were all locked down and torqued down attention was then brought to place the bone graft.? The transverse processes bilaterally were drilled at T9 down to L5 and the sacral ala.? And then the autograft was packed in the lateral gutters along with the allograft. Wounds were then closed in a layered fashion.? The vancomycin powder was placed along with deep drain.? And then the wound was closed with 0 Vicryl 2-0 Vicryl Monocryl Steri-Strips and sterile dressings.? Patient was then transferred to the PACU in stable condition.
--- NOTE | 2022-01-12 17:21 | PM.CONSULT ---
Providers/Reason For Consult Attending Physician: Cristian Stoll DO Primary Care Provider: Charity Salazar MD History of Present Illness History of Present Illness Niki Agosto is a 61 year old female Medications/Allergies Home Medications Medication Instructions Recorded Confirmed Last Taken Type levothyroxine 50 mcg capsule 50 mcg PO QDAY 07/04/19 01/12/22 01/12/22 08:00 History propranolol 40 mg tablet 40 mg PO BID 07/04/19 01/12/22 01/12/22 08:00 History topiramate 50 mg tablet 50 mg PO QPM 07/04/19 01/12/22 01/11/22 History topiramate 25 mg tablet 25 mg PO DAILY 09/01/19 01/12/22 01/12/22 08:00 History verapamil 120 mg tablet 120 mg PO DAILY 09/01/19 01/12/22 01/12/22 08:00 History baclofen 20 mg tablet 20 mg PO QID PRN spasms 30 days 05/30/20 01/12/22 01/12/22 09:15 Rx #120 tabs duloxetine 30 mg capsule,delayed 60 mg PO QDAY 09/10/20 01/12/22 01/12/22 08:00 History release (Cymbalta) gabapentin 300 mg capsule 300 mg PO TID 05/23/21 01/12/22 01/12/22 08:00 History meloxicam 7.5 mg tablet 7.5 mg PO BID 05/23/21 01/12/22 01/12/22 08:00 History oxybutynin chloride 5 mg tablet See Rx Instructions .Route .COMPLEX 05/23/21 01/12/22 01/12/22 08:00 History oxybutynin chloride 10 mg 10 mg PO QPM 10/06/21 01/12/22 01/11/22 History tablet,extended release 24 hr hydrocodone 10 mg-acetaminophen See Rx Instructions .Route 12/15/21 01/12/22 01/12/22 09:15 History 325 mg tablet .COMPLEX PRN Pain sumatriptan succinate 50 mg tablet 50 mg PO Q2H PRN Migraine Headache 12/16/21 01/12/22 3 Days Ago History ~01/09/22 alendronate 10 mg tablet 10 mg PO DAILY 01/09/22 01/12/22 01/10/22 History temazepam 15 mg capsule (Restoril) 15 mg PO BEDTIME 01/09/22 01/12/22 01/11/22 History Bone Growth Stimulator E0748 #1 ea 01/12/22 Unknown Rx Allergies Allergy/AdvReac Type Severity Reaction Status Date / Time Penicillins Allergy RASH Verified 01/12/22 10:09 Sulfa (Sulfonamide Allergy ANAPHYLAXIS Verified 01/12/22 10:09 Antibiotics) Current Medications Generic Name Dose Route Start Last Admin Trade Name Freq PRN Reason Stop Dose Admin Fentanyl 50 mcg 01/12/22 09:58 01/12/22 11:17 Fentanyl 50 Mcg/Ml Inj 2ml IVP 50 mcg Q10M PRN Administration Preop Pain Sodium Chloride 1,000 mls @ 30 mls/hr 01/12/22 10:00 01/12/22 15:20 Sodium Chloride 0.9% IV 01/13/22 09:59 Infused .Q24H VERONICA Infusion PFSH Acute PFSH: Medical History Altered mental status Anxiety and depression Currently on Cymbalta managed by her primary care provider. At risk for polypharmacy Chronic hypertension Diagnosed at the age of 14 and controlled on medication managed by primary care provider. Chronic low back pain without sciatica Currently on hydrocodone and baclofen managed by the pain clinic Hypothyroid Currently on levothyroxine managed by PMD No pertinent past medical history Denies: hypertension, diabetes, heart, lung, liver, kidney, thyroid, genital herpes, bleeding problems, or clotting problems. her primary care provider is Dr. Salazar Surgical History History of ankle surgery 2006--LEFT x3. In [place] History of back surgery 10/2020---jef placed in back History of dental surgery tooth extraction Hx of section 03/26/89 S/P breast biopsy 2000-left breast-benign Family History Mother Family history of thyroid problem Thyroid condition Diabetes Hypertension Father Brain aneurysm Denies family history of Colon cancer Ovarian cancer DVT (deep venous thrombosis) Heart disease Breast cancer Suicide Pulmonary embolism Uterine cancer Social History (Reviewed 01/09/22 @ 13:47 by DANNY Frazier Smoking and tobacco status: never smoked Vitals/I&O/Wt Last Vital Signs Temp 98.6 F 01/12/22 10:02 Pulse 62 01/12/22 10:02 Resp 16 01/12/22 11:17 BP 142/96 01/12/22 10:02 Pulse Ox 94 01/12/22 11:17 O2 Del Method 01/12/22 10:02 01/12/22 01/12/22 01/12/22 06:59 14:59 22:59 Intake Total 50 / 50 1752 / 1802 Balance 50 / 50 1752 / 1802 Physical Exam Urinary Catheter Management: Portillo Latex: Cath Placed During This Visit: yes Urinary Catheter Date of Insertion: 01/12/22 Urinary Catheter Time of Insertion: 13:40 Data : 01/12/22 17:43 Coding Level of Care Code Acute House Cleaner for Jade Gracia
--- NOTE | 2022-01-12 17:24 | PC.NURSE ---
Pt here from OR OR team at bedside. hemavac noted to gravity with no suction per order. Bere to left wrist and 2 peripheral lines noted to the left forearm. pt with 5l simple mask. Alert to name at this time.
[2022-01-12] MEDS: lactated ringers 1,000 ML 90 ML IV (17:42)
--- NOTE | 2022-01-12 17:53 | ANE.PACU2 ---
Inpatient post-anesthesia follow up: Airway intact: Yes Vital signs: Temperature 98.6 F Pulse Rate 62 Respiratory Rate 16 Blood Pressure 142/96 Pulse Oximetry 94 Oxygen Delivery Me thod Room Air Oxygen Flow Rate Fraction of Inspir ed Oxygen Hydration adequate: Yes Nausea and vomiting: No Pain level: 3 Mental status: Altered (Alert to name ) Additional Comments: Taken to ICU on full monitors, spontaneously breathing, simple mas O2. Handoff report given to DIGITAL COMPUTER OPERATOR including fluids in/out, medications administered, and operative course. Report accepted.
[2022-01-12] MEDS: morphine 4 mg/mL SDV 1 mL IVP (17:57)
[2022-01-12 18:03] LABS: Basophils % 0.3 %; Eosinophils # 0.1 10^3/uL (0.0-0.8); Eosinophils % 0.6 %; Hematocrit 35.5 % (37.0-47.0); Hemoglobin 11.4 g/dL (11.5-15.3); Lymphocytes # 1.5 10^3/uL (0.8-4.8); Lymphocytes % 12.2 %; Mean Corpuscular HGB Conc 32.1 g/dL (30.0-36.0); Mean Corpuscular Hemoglobin 30.8 pg (28.0-34.0); Mean Corpuscular Volume 95.9 fl (81-99); Mean Platelet Volume 10.2 fL (7.4-10.4); Monocytes # 0.3 10^3/uL (0.2-0.9); Monocytes % 2.3 %; Neutrophils # 9.96 10^3/uL (1.8-7.7); Neutrophils % 83.6 %; Nucleated Red Blood Cells % 0 %; Platelet Count 191 10^3/cmm (130-400); Red Cell Distribution Width 14.5 % (12.1-15.1); White Blood Count 11.9 10^3/uL (4.0-10.0)
--- NOTE | 2022-01-12 18:24 | PC.NURSE ---
NOT DRAINAGE NOTED TO WOUND. HEMOVAC NOTED WITH SANGINOUS DRAINAGE
[2022-01-12] MEDS: fentaNYL 50 mcg/mL INJ 2mL 25 MCG IVP (18:25)
[2022-01-12 18:30] LABS: Lactate (Lactic Acid level) 1.1 mmol/L (0.5-2.2)
--- NOTE | 2022-01-12 19:00 | PM.CONSULT ---
Providers/Reason For Consult Consulting Physician/Specialty*: Dr. Bob Jules/Internal Medicine Reason for Consult*: Post-op Medical management Attending Physician: Cristian Stoll DO Primary Care Provider: Charity Salazar MD History of Present Illness History of Present Illness Niki Agosto is a 61 year old female with past medical history of chronic pain on multiple medications for pain follow-up with pain management clinic as an outpatient, anxiety depression, hypertension, low back pain, hypothyroidism presented to the hospital today for elective surgery for lumbar stenosis with neurogenic claudication and degenerative scoliosis. Patient is postop day 0. She had a T9 to pelvis fusion, S1 interpretation, lumbopelvic fixation, L4-L5 laminectomy, L5-S1 laminectomy with partial facetectomy performed today. Estimated blood loss 2 L. Patient was transferred to ICU in stable condition and medicine was consulted for medical management. Hemoglobin 12.1 on arrival to hospital today intraoperatively 9.7. She is status post 2 units of packed RBC. Repeat hemoglobin 11.4. Patient stable on arrival to ICU and subsequently became hypotensive 70s over 50s. 1 L normal saline bolus was ordered. Levophed was started. Additional normal saline bolus was given and saline started at 100 cc/h. Patient did get fentanyl IV push for pain prior to becoming hypotensive. Currently patient states that she is hurting all over and cannot pinpoint an exact location at this time however does not seem to get comfortable in bed at this time. She was resting comfortably at first but during examination she started moaning in pain again. Labs from earlier today: Lactic acid 1.1. Denies any chest pain, respiratory complaints, abdominal pain at this time. Does not answer very many questions. Nursing staff has reported the patient had some mottling around her left knee and left ankles earlier today even prior to surgery. Urinalysis obtained earlier this afternoon did show 2+ leukocyte esterase, WBC, positive for nitrates. 200 cc urine output since this afternoon. Medications/Allergies Home Medications Medication Instructions Recorded Confirmed Last Taken Type levothyroxine 50 mcg capsule 50 mcg PO QDAY 07/04/19 01/12/22 01/12/22 08:00 History propranolol 40 mg tablet 40 mg PO BID 07/04/19 01/12/22 01/12/22 08:00 History topiramate 50 mg tablet 50 mg PO QPM 07/04/19 01/12/22 01/11/22 History topiramate 25 mg tablet 25 mg PO DAILY 09/01/19 01/12/22 01/12/22 08:00 History verapamil 120 mg tablet 120 mg PO DAILY 09/01/19 01/12/22 01/12/22 08:00 History baclofen 20 mg tablet 20 mg PO QID PRN spasms 30 days 05/30/20 01/12/22 01/12/22 09:15 Rx #120 tabs duloxetine 30 mg capsule,delayed 60 mg PO QDAY 09/10/20 01/12/22 01/12/22 08:00 History release (Cymbalta) gabapentin 300 mg capsule 300 mg PO TID 05/23/21 01/12/22 01/12/22 08:00 History meloxicam 7.5 mg tablet 7.5 mg PO BID 05/23/21 01/12/22 01/12/22 08:00 History oxybutynin chloride 5 mg tablet See Rx Instructions .Route .COMPLEX 05/23/21 01/12/22 01/12/22 08:00 History oxybutynin chloride 10 mg 10 mg PO QPM 10/06/21 01/12/22 01/11/22 History tablet,extended release 24 hr hydrocodone 10 mg-acetaminophen See Rx Instructions .Route 12/15/21 01/12/22 01/12/22 09:15 History 325 mg tablet .COMPLEX PRN Pain sumatriptan succinate 50 mg tablet 50 mg PO Q2H PRN Migraine Headache 12/16/21 01/12/22 3 Days Ago History ~01/09/22 alendronate 10 mg tablet 10 mg PO DAILY 01/09/22 01/12/22 01/10/22 History temazepam 15 mg capsule (Restoril) 15 mg PO BEDTIME 01/09/22 01/12/22 01/11/22 History Bone Growth Stimulator E0748 #1 ea 01/12/22 Unknown Rx Allergies Allergy/AdvReac Type Severity Reaction Status Date / Time Penicillins Allergy RASH Verified 01/12/22 10:09 Sulfa (Sulfonamide Allergy ANAPHYLAXIS Verified 01/12/22 10:09 Antibiotics) Current Medications Generic Name Dose Route Start Last Admin Trade Name Freq PRN Reason Stop Dose Admin Docusate Sodium 100 mg 01/12/22 18:00 01/12/22 19:39 Docusate Sodium 100 Mg Capsule PO Not Given BID VERONICA Fentanyl 1 patch 01/12/22 19:45 01/12/22 21:09 Fentanyl 25 Mcg Patch TRANSDERMA 1 patch Q72H VERONICA Administration Gabapentin 300 mg 01/12/22 21:00 01/12/22 21:17 Gabapentin 300 Mg Capsule PO Not Given TID VERONICA Hydromorphone HCl 0.4 mg 01/12/22 18:25 01/12/22 23:00 Hydromorphone 1 Mg/Ml Inj 1 Ml IVP 0.4 mg Q4H PRN Administration pain Clindamycin HCl/Dextrose 900 mg in 50 mls @ 100 mls/hr 01/12/22 21:00 01/12/22 21:50 Cleocin IV Infused Q8H VERONICA Infusion Protocol Norepinephrine Bitartrate 4 mg 254 mls @ 0 mls/hr 01/12/22 18:30 01/12/22 20:30 / Dextrose IV 7 mcg/min .Q0M VERONICA 26.67 mls/hr Titration Protocol Per Protocol Sodium Chloride 1,000 mls @ 100 mls/hr 01/12/22 19:45 01/12/22 19:49 Sodium Chloride 0.9% IV 100 mls/hr .Q10H VERONICA Administration Morphine Sulfate 4 mg 01/12/22 16:55 01/13/22 01:14 Morphine 4 Mg/Ml Sdv 1 Ml IVP 4 mg Q4H PRN Administration SEVERE PAIN Propranolol HCl 40 mg 01/12/22 18:00 01/12/22 19:39 Propranolol 40 Mg Tablet PO Not Given BID VERONICA Temazepam 15 mg 01/12/22 21:00 01/12/22 21:17 Temazepam 15 Mg Capsule PO Not Given BEDTIME VERONICA PFSH Acute PFSH: Medical History Altered mental status Anxiety and depression Currently on Cymbalta managed by her primary care provider. At risk for polypharmacy Chronic hypertension Diagnosed at the age of 14 and controlled on medication managed by primary care provider. Chronic low back pain without sciatica Currently on hydrocodone and baclofen managed by the pain clinic Hypothyroid Currently on levothyroxine managed by PMD No pertinent past medical history Denies: hypertension, diabetes, heart, lung, liver, kidney, thyroid, genital herpes, bleeding problems, or clotting problems. her primary care provider is Dr. Salazar Surgical History History of ankle surgery 2006--LEFT x3. In [place] History of back surgery 10/2020---jef placed in back History of dental surgery tooth extraction Hx of section 03/26/89 S/P breast biopsy 2000-left breast-benign Family History Mother Family history of thyroid problem Thyroid condition Diabetes Hypertension Father Brain aneurysm Denies family history of Colon cancer Ovarian cancer DVT (deep venous thrombosis) Heart disease Breast cancer Suicide Pulmonary embolism Uterine cancer Social History Smoking and tobacco status: never smoked Vitals/I&O/Wt Last Vital Signs Temp 100.9 F H 01/13/22 00:00 Pulse 100 01/13/22 00:15 Resp 15 01/13/22 01:14 BP 139/104 01/13/22 00:15 Pulse Ox 92 01/13/22 01:14 O2 Del Method 01/12/22 20:00 O2 Flow Rate 2 01/12/22 20:00 01/12/22 01/12/22 01/13/22 14:59 22:59 06:59 Intake Total 50 / 50 6358.896 / 6408.896 Output Total 3600 / 3600 Balance 50 / 50 2758.896 / 2808.896 Physical Exam Narrative: General: Alert, oriented to self, patient seen laying in bed in ICU 8 appearing uncomfortable secondary to pain at this time. HEENT: Normocephalic, atraumatic, EOMI, breathing normally on 2 L nasal cannula Cardio: Regular rate rhythm, normal S1-S2, muffled heart sounds secondary to body habitus Respiratory: Clear to auscultation bilaterally with mild rhonchi present that do clear when she coughs. GI: Abdomen soft, nontender, obese rounded abdomen, bowel sounds present but unable to be fully assessed, patient has abdominal binder on at this time Wound to drain noted with 100 cc of gross blood present Extremities: There is evidence of some mottling present over left knee and bilateral lower extremity ankle area. Extremities are well perfused and warm, toes slightly cooler however capillary refill less than 2 seconds. 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: Status: Acute (3) Lumbar spondylosis: Status: Acute (4) Chronic low back pain without sciatica: Status: Chronic (5) Fusion of spine, thoracolumbar region: Status: Acute (6) Encounter for postoperative care: Status: Acute (7) Anemia: Status: Acute (8) Hemorrhagic shock: Status: Acute (9) Postoperative hypovolemic shock: Status: Acute Plan #Lumbar stenosis status post L4-L5 S1 laminectomy with T9-S1 pelvic fusion, postop day 0 #Acute blood loss anemia #Hypovolemic with component of hemorrhagic shock #Anxiety, depression #Chronic pain, on pain management as per outpatient #Hypertension #Hyperlipidemia ? Estimated blood loss 2 L during surgery ? Status post 2 L normal saline bolus, continue normal saline 100 cc/h. Urine output has improved after fluid administration ? Status post 2 units packed RBC. Additional 2 units on hold and blood bank. Repeat hemoglobin 11.4 ? Wound drain has about 100 cc blood. We will continue to monitor for output ? Continue patient on Levophed. Wean off as able ? Check blood cultures, urine culture, sputum gram stain culture ? Encourage incentive spirometer ? Manage pain. Continue on gabapentin 300 mg 3 times daily, levothyroxine 50 daily. ? Hold temazepam, propanolol 40 twice daily, verapamil, baclofen at this time ? Place fentanyl patch 25 every 72 hour, morphine 4 mg every 4 hour as needed for now. -Check procalcitonin. Patient given clindamycin and gentamicin in OR. She is allergic to penicillin. -Check CMP, CBC, magnesium, procalcitonin -We will need to watch out for CLAUS secondary to hypotension -Continue to monitor patient in ICU Full code DVT prophylaxis SCDs KOSHER DIETARY SERVICE SUPERVISOR updated family. Daughter was able to talk to Pt as well on speaker. Consult Attestations Medical Necessity Statement: Requires continued care in ICU for management of hemorrhagic shock. Critical Care Time: The high probability of a clinically significant, sudden or life threatening deterioration of the patient's [] system(s) required my full and direct attention, intervention and personal management. The critical care time is as shown. This time is in addition to time spent performing any reported procedures but includes the following: [x] Data and vital sign review and interpretation [x] Patient assessment, examination and intervention [x] Documentation [x] Medication orders and management Critical Care Time (min): 30 Coding Level of Care Code Acute Lead Shop Operator for Chg Fwd Diagnoses Lumbar stenosis with neurogenic claudication M48.062 Arthritis of sacroiliac joint of both sides M47.818 Lumbar spondylosis M47.816 Chronic low back pain without sciatica M54.5; G89.29 Fusion of spine, thoracolumbar region M43.25 Encounter for postoperative care Z48.89 Anemia D64.9 Hemorrhagic shock R57.8 Postoperative hypovolemic shock T81.19XA
[2022-01-12 19:19] LABS: Ferritin 334 ng/mL (15-150); Iron 148 ug/dL (37-145); Percent Saturation 72.5 % (20-50); Total Iron Binding Capacity 204 mcg/dl; Unsaturated Iron Binding 56 ug/dL (112-347)
--- NOTE | 2022-01-12 19:43 | USCV_ITS ---
Niki Agosto Age: 61 Gender: F : 1960 Exam Date: 01/12/2022 21:08 Ordering Phys: Anabel Gregory MD Technologist: BERNABE Exam Location: [facility] [place] Indication: Hypotension immediately following back surgery. BP: 116 / 84 HR: 70 Rhythm: Sinus Technical Quality: Adequate MEASUREMENTS (Male / Female) Normal Values 2D ECHO LV Diastolic Diameter PLAX 3.8 cm 4.2 - 5.9 / 3.9 - 5.3 cm LV Systolic Diameter PLAX 2.5 cm IVS Diastolic Thickness 1.4 cm 0.6 - 1.0 / 0.6 - 0.9 cm IVS Systolic Thickness 2.8 cm LVPW Diastolic Thickness 1.6 cm 0.6 - 1.0 / 0.6 - 0.9 cm LVPW Systolic Thickness 1.6 cm LVOT Diameter 1.9 cm LV Ejection Fraction 2D Teich 61.5 % LV Ejection Fraction MOD 2C 66.7 % LV Ejection Fraction 2C AL 66.2 % LA Diameter 3.5 cm LA Width 3.8 cm LA Height 6.1 cm RA Width 3.1 cm RA Height 3.6 cm Aorta at Sinotubular Diameter 3.3 cm IVC Diameter 1.1 cm M-MODE Aortic Annulus Diameter 3.5 cm LA Ao Ratio MM 0.9 MV E Point Septal Separation 0.6 cm DOPPLER AV Peak Velocity 121.0 cm/s LVOT Peak Velocity 89.0 cm/s AV Area Cont Eq vti 2.4 cm squared AV Area Cont Eq pk 2.1 cm squared MV Area PHT 2.2 cm squared Mitral E to A Ratio 0.5 MV E' Velocity 32.5 cm/s Mitral E to MV E' Ratio 6.3 Mitral E to LV E' Lateral Ratio 5.8 Mitral E to LV E' Septal Ratio 7.0 TR Peak Velocity 195.7 cm/s TR Peak Gradient 15.3 mmHg TV Peak E Velocity 55.0 cm/s Right Atrial Pressure 5.0 mmHg Pulmonary Artery Systolic Pressu 20.3 mmHg PV Peak Velocity 82.0 cm/s RV Acceleration Time 0.1 s RV Ejection Time 0.3 s RV AcT/ET 0.4 FINDINGS Left Ventricle Normal left ventricular cavity size. Normal left ventricular systolic function. Left ventricular ejection fraction is estimated at 65-70 %. No regional wall motion abnormalities. Grade I diastolic dysfunction (abnormal relaxation filling pattern), normal to mildly elevated filling pressures. Right Ventricle Normal right ventricular size and systolic function. Right ventricular systolic pressure 19 mmHg. Right Atrium Normal right atrial size. Left Atrium Normal left atrial size. Mitral Valve Structurally normal mitral valve. No mitral valve stenosis. No mitral valve regurgitation. Aortic Valve Aortic valve not well visualized. No aortic valve stenosis. No aortic valve regurgitation. Tricuspid Valve Structurally normal tricuspid valve. Trace tricuspid valve regurgitation. Pulmonic Valve Pulmonic valve not well visualized. Trace pulmonary valve regurgitation. Pericardium No pericardial effusion. Aorta Normal size aortic root. IVC Small sized inferior vena cava. CONCLUSIONS 1. This is a technically difficult study. 2. Normal left ventricular cavity size and systolic function. Left ventricular ejection fraction is estimated at 65-70 %. No regional wall motion abnormalities. Grade I diastolic dysfunction (abnormal relaxation filling pattern), normal to mildly elevated filling pressures. 3. No significant valvular abnormality. 4. No prior similar studies to compare. Elda Johnson MD (Electronically Signed) Final Date: 13 January 2022 15:28 S
[2022-01-12] MEDS: sodium chloride 0.9% 1,000 ML 100 ML IV (19:49)
[2022-01-12] MEDS: sodium chloride 0.9% 1,000 ML 999 ML IV (19:51)
[2022-01-12 21:09] LABS: Basophils # 0.1 10^3/uL (0.0-0.1); Basophils % 0.4 %; Hematocrit 33.7 % (37.0-47.0); Hemoglobin 10.9 g/dL (11.5-15.3); Lymphocytes % 6.8 %; Mean Corpuscular HGB Conc 32.3 g/dL (30.0-36.0); Mean Corpuscular Hemoglobin 30.6 pg (28.0-34.0); Mean Corpuscular Volume 94.7 fl (81-99); Mean Platelet Volume 10.3 fL (7.4-10.4); Monocytes # 0.4 10^3/uL (0.2-0.9); Monocytes % 2.8 %; Neutrophils # 12.63 10^3/uL (1.8-7.7); Neutrophils % 89.4 %; Nucleated Red Blood Cells % 0 %; Platelet Count 208 10^3/cmm (130-400); Red Blood Count 3.56 10^6/uL (4.1-5.3); Red Cell Distribution Width 14.6 % (12.1-15.1); White Blood Count 14.1 10^3/uL (4.0-10.0)
[2022-01-12] MEDS: fentaNYL 25 mcg Patch 1 PATCH TRANSDERMA (21:09)
[2022-01-12 21:33] LABS: Alanine Aminotransferase 15 U/L (0-33); Albumin Level 2.6 g/dL (3.5-5.2); Alkaline Phosphatase 78 IU/L (35-105); Anion Gap 13.8 (5-19); Aspartate Amino Transferase 20 U/L (0-32); Blood Urea Nitrogen 17 mg/dL (8-23); Calcium 7.5 mg/dL (8.5-10.5); Carbon Dioxide 19 mmol/L (22-29); Chloride 113 mmol/L (98-107); Globulin 2.3 g/dL (1.3-4.6); Glomerular Filtration Rate 124.6 mL/min (90-130); Glucose 182 mg/dL (65-115); Magnesium 1.6 mg/dL (1.7-2.3); Osmolality Calculated 298 mOsm/kg (285-295); Potassium 4.8 mmol/L (3.5-5.1); Sodium 141 mmol/L (136-145); Total Bilirubin 0.6 mg/dL (0.15-1.2); Total Protein 4.9 g/dL (6.6-8.7)
[2022-01-12 22:48] LABS: Glucose Point of Care 172 mg/dL (70-110)
[2022-01-12] MEDS: HYDROmorphone 1 mg/mL INJ 1 mL 0.4 MG IVP (23:00)
[2022-01-12 23:08] LABS: Hemoglobin 11.1 g/dL (11.5-15.3)
[2022-01-13] VITALS (81 sets, daily range): BP systolic 91–146; BP diastolic 52–104; PULSE 92–123; RESP 0–37; TEMP 36.7–38.3; O2SAT 74–99
[2022-01-13] MEDS: morphine 4 mg/mL SDV 1 mL IVP ×4 (01:14→17:41)
[2022-01-13] MEDS: sodium chloride 0.9% 1,000 ML 100 ML IV ×2 (04:33→15:08)
[2022-01-13] MEDS: clindamycin 900 MG/50 ML PREMIX 100 MG IV ×3 (04:34→20:56)
[2022-01-13 04:36] LABS: Basophils % 0.3 %; Hematocrit 31.3 % (37.0-47.0); Hemoglobin 10.4 g/dL (11.5-15.3); Lymphocytes # 1.1 10^3/uL (0.8-4.8); Lymphocytes % 9.6 %; Mean Corpuscular HGB Conc 33.2 g/dL (30.0-36.0); Mean Corpuscular Hemoglobin 29.7 pg (28.0-34.0); Mean Corpuscular Volume 89.4 fl (81-99); Mean Platelet Volume 10.4 fL (7.4-10.4); Monocytes # 0.7 10^3/uL (0.2-0.9); Neutrophils # 9.53 10^3/uL (1.8-7.7); Neutrophils % 83.6 %; Nucleated Red Blood Cells % 0 %; Platelet Count 204 10^3/cmm (130-400); Red Cell Distribution Width 14.7 % (12.1-15.1); White Blood Count 11.4 10^3/uL (4.0-10.0)
[2022-01-13 05:06] LABS: Procalcitonin 0.24 ng/mL (0-0.5)
[2022-01-13 05:17] LABS: Alanine Aminotransferase 14 U/L (0-33); Albumin Level 3.2 g/dL (3.5-5.2); Alkaline Phosphatase 75 IU/L (35-105); Anion Gap 14.5 (5-19); Aspartate Amino Transferase 20 U/L (0-32); Blood Urea Nitrogen 15 mg/dL (8-23); Calcium 7.6 mg/dL (8.5-10.5); Carbon Dioxide 19 mmol/L (22-29); Chloride 110 mmol/L (98-107); Glomerular Filtration Rate 161.2 mL/min (90-130); Glucose 172 mg/dL (65-115); Magnesium 1.7 mg/dL (1.7-2.3); Osmolality Calculated 293 mOsm/kg (285-295); Potassium 4.5 mmol/L (3.5-5.1); Sodium 139 mmol/L (136-145); Total Bilirubin 0.5 mg/dL (0.15-1.2); Total Protein 5.2 g/dL (6.6-8.7)
[2022-01-13] MEDS: HYDROmorphone 1 mg/mL INJ 1 mL 0.5 MG IVP (07:54)
--- NOTE | 2022-01-13 08:11 | XR_ITS ---
WS: [id number] CHEST XRAY TECHNIQUE: Portable chest. CLINICAL INFORMATION: fever COMPARISON: December 14, 2021 FINDINGS: Heart: Cardiomegaly. Tortuous thoracic aorta. Lungs: Slight elevation LEFT hemidiaphragm. Linear atelectasis LEFT midlung. RIGHT lung is well aerat ed. Bones: Pedicle Screw fixation thoracolumbar spine partially visualized. Chronic RIGHT rib fractures w ith callus formation. XR/XR chest 1V portable [id number] IMPRESSION: 1. Cardiomegaly with tortuous thoracic aorta. 2. Slight volume loss LEFT lung with linear atelectasis LEFT midlung. Recommen d correlation for developing postoperative pneumonia. 3. Partially visualized thoracolumbar pedicle screw fixation.
--- NOTE | 2022-01-13 08:42 | PM.PN ---
Subjective Subjective: POD 1 Patient is resting but complains of back pain. Denies any shortness of breath, chest pain. Pain is poorly controlled with current medication. Vitals/I&O/Wt Last Vital Signs Temp 100.8 F H 01/13/22 04:00 Pulse 109 H 01/13/22 06:30 Resp 6 L 01/13/22 06:30 BP 131/90 01/13/22 06:30 Pulse Ox 94 01/13/22 05:12 O2 Del Method 01/12/22 20:00 O2 Flow Rate 2 01/12/22 20:00 01/12/22 01/13/22 01/13/22 22:59 06:59 14:59 Intake Total 6358.896 / 6408.896 1168.443 / 7577.339 Output Total 3600 / 3600 700 / 4300 Balance 2758.896 / 2808.896 468.443 / 3277.339 Physical Exam Narrative: Patient presents alert and oriented x3 with a good general appearance normal mood and affect. Moderately tender around the incisional site with the incision appear to be saturated with blood on the dressings. Patient denies any fevers or chills. 4/5 motor strength both lower extremities with negative straight leg raise bilaterally. Calves are supple no medial thigh tenderness. Pulses are 2+ at the dorsalis pedis and posterior tibial region. Good capillary refill throughout normal sensation light touch both lower extremities. Urinary Catheter Management: Portillo Latex: Cath Placed During This Visit: yes Reason for Continuing Indwelling Catheter: Accurate Measurement of Urinary Output in Critically Ill Patients Urinary Catheter Date of Insertion: 01/12/22 Urinary Catheter Time of Insertion: 13:40 Data : 01/13/22 03:22 01/13/22 03:22 Micro: Microbiology 01/12/22 20:36 Blood Culture - Preliminary Blood SPECIMEN COLLECTED 01/12/22 20:41 Blood Culture - Preliminary Blood SPECIMEN COLLECTED A&P Assessment and plan (1) Encounter for postoperative care: Dressings were changed on her back with new [place] dressings applied ABDs and micropore tape to help tamponade further bleeding. Hemovac intact. Portillo catheter intact. Encouraged incentive spirometry for pulmonary toilet. We will change her pain medication regiment to OxyContin 10 mg 1 every 12 p.o. and oxycodone fives 1-2 every 4-6 hours as needed for breakthrough. Status: Acute (2) S/P spinal fusion: Status: Acute Attestations Medical Necessity Statement*: hold dc for Post op anemia Coding Level of Care Code Acute President Celebrity Acquistion for Chg Fwd Diagnoses Encounter for postoperative care Z48.89 S/P spinal fusion Z98.1
[2022-01-13] MEDS: oxyCODONE 5 mg IR Tab/Cap PO ×3 (08:44→21:01)
[2022-01-13] MEDS: gabapentin 300 mg Capsule PO ×3 (08:44→20:54)
[2022-01-13] MEDS: cefTRIAXone 1,000 MG in sodium chloride 0.9% (plus) 50 ML 100 MG IV (08:45)
[2022-01-13] MEDS: duloxetine 30 mg Capsule 60 MG PO (08:45)
[2022-01-13] MEDS: levothyroxine 50 mcg Tablet PO (08:45)
[2022-01-13] MEDS: oxybutynin 5 mg Tablet PO (08:45)
[2022-01-13] MEDS: docusate sodium 100 mg Capsule PO ×2 (08:45→17:37)
[2022-01-13] MEDS: topiramate 25 mg Tablet PO (08:45)
--- NOTE | 2022-01-13 10:03 | PC.CHAP ---
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 police pilot visit [] Patient/Family/Request visit [] Outpatient visit [] Follow-up visit [] Physician referral [] Code/Alert [x] Routine visit [] Staff referral [] Actively dying [x] Patient sleeping [x] Family support [] [] Out of room [] Palliative care [] [] Receiving care in room [] Pre-surgical visit [] Trauma [] Long length of stay [x] ICU visit [x] Other: vent Relational/Emotional Strength [] Patient feels connected with others/family/visitors/staff [] Distress [] Loneliness/isolation [] Abandonment Spirituality of Patient [] Person of Dayanna [] Attends Advent of their Dayanna [] Believes in Prayer [] Reads Bible or Gnosticist materials [] There are Spiritual issues to be addressed Set Up Technician Interventions [x] Prayer [] Active listening [] Non-anxious presence [] Spiritual/emotional support [] Crisis/trauma care [] Spiritual counseling [] Bereavement support [] Provided bereavement packet [] Provided Bible/devotional materials [] Provided toy/stuffed animal, coloring book to patient or family member [] Provided Communion [] Anointing/[place] [] Salvation [x] Completed spiritual assessment [] Other: Impact on Illness or Injury [] Angry [] Fearful [] Anxious [] Often cries [] Exhaustion [] Unable to work [] Unable to attend shinto [] Unable to walk/stand [] Unable to read [] Unable to drive [] Unable to eat/drink [] Unable to sleep [] Unable to be with family [] Patient intubated [] Other: Summary Time spent with patient
--- NOTE | 2022-01-13 11:48 | PC.NURSE ---
Pt ordered to lay flat on back to assist with tamponading the bleeding from surgical site. Pt verbalizes understanding.
--- NOTE | 2022-01-13 13:56 | P.PN_ITS ---
Subjective Subjective: She is off vasopressors Hemoglobin stable at 10.4 after 1 unit PRBC Patient is stating that her pain is under control on current regimen Low-grade fever, UTI, started ceftriaxone Requested chest x-ray as well, blood cultures have been taken And sent for atelectasis related fever versus pneumonia Vitals/I&O/Wt Last Vital Signs Temp 98.4 F 01/13/22 12:30 Pulse 101 H 01/13/22 13:15 Resp 2 L 01/13/22 13:15 BP 92/57 01/13/22 13:15 Pulse Ox 93 01/13/22 13:15 O2 Del Method 01/12/22 20:00 O2 Flow Rate 2 01/12/22 20:00 01/12/22 01/13/22 01/13/22 22:59 06:59 14:59 Intake Total 6358.896 / 6408.896 1168.443 / 7577.339 2733.589 / 2733.589 Output Total 3600 / 3600 700 / 4300 3900 / 3900 Balance 2758.896 / 2808.896 468.443 / 3277.339 -1166.411 / -1166.411 Physical Exam Narrative: Patient resting supine She has art line in her left arm Is awake and alert Nonfocal neuro exam Able to move her extremities Pleasant and cooperative Bowel sound present however sluggish Nondistended abdomen Currently saturating well on 2 L nasal cannula Nonfocal neuro exam No audible stridor or wheezing Urinary Catheter Management: Portillo Latex: Cath Placed During This Visit: yes Reason for Continuing Indwelling Catheter: Accurate Measurement of Urinary Output in Critically Ill Patients Urinary Catheter Date of Insertion: 01/12/22 Urinary Catheter Time of Insertion: 13:40 Data : 01/13/22 03:22 01/13/22 03:22 Micro: Microbiology 01/12/22 13:40 Urine Culture - Preliminary Urine Catheterized Gram Negative Rods 01/12/22 20:36 Blood Culture - Preliminary Blood SPECIMEN COLLECTED 01/12/22 20:41 Blood Culture - Preliminary Blood SPECIMEN COLLECTED A&P Assessment and plan (1) Postoperative fever: Status: Acute (2) Postoperative anemia: Status: Acute (3) Postoperative hypovolemic shock: Status: Acute (4) S/P spinal fusion: Status: Acute (5) Lumbar stenosis with neurogenic claudication: Status: Acute Plan Postoperative anemia Status post 1 unit PRBC Hemoglobin stable Levophed turned off this morning Art line has been removed Postoperative fever Concern for atelectasis versus pneumonia Also urine analysis showing pyuria Started ceftriaxone along clindamycin DuoNeb every 4 as needed Incentive spirometer Continue opiate regimen postoperative., Bowel regimen added Acute hypoxia postoperatively secondary to atelectasis versus pneumonia Sputum culture, continue antibiotics Incentive spirometry Patient worked with physical therapy Significant blood 250 cc in Hemovac DVT prophylaxis on hold Patient does not want to go to shelter she wanted to go home on home health services, she has a friend who will take care of her as well Attestations Medical Necessity Statement*: Continue medical management, she can be transferred out of ICU if blood pressure stays stable Time Spent in Patient Care: 40 Coding Level of Care Code Acute Medical Secretary Receptionist for Jade Fwd Diagnoses Postoperative fever R50.82 Postoperative anemia D64.9 Postoperative hypovolemic shock T81.19XA S/P spinal fusion Z98.1 Lumbar stenosis with neurogenic claudication M48.062
[2022-01-13] MEDS: polyethylene glycol 3350 Pkt 17 gm PO (15:06)
[2022-01-13] MEDS: topiramate 25 mg Tablet 50 MG PO (17:37)
[2022-01-13] MEDS: sennosides-docusate Tablet 2 TAB PO (17:37)
[2022-01-13] MEDS: oxybutynin chloride XL 5 MG TABLET 10 MG PO (20:54)
[2022-01-13] MEDS: nystatin cream 30 gm 1 APPLIC TOPICAL (21:01)
[2022-01-14] VITALS (59 sets, daily range): BP systolic 82–129; BP diastolic 44–83; PULSE 85–146; RESP 0–30; TEMP 37.1–37.7; O2SAT 89–99
[2022-01-14] MEDS: sodium chloride 0.9% 1,000 ML 100 ML IV (01:21)
[2022-01-14 04:10] LABS: Basophils % 0.4 %; Eosinophils # 0.1 10^3/uL (0.0-0.8); Eosinophils % 1.8 %; Hematocrit 23.6 % (37.0-47.0); Hemoglobin 7.4 g/dL (11.5-15.3); Lymphocytes # 1.7 10^3/uL (0.8-4.8); Lymphocytes % 23.3 %; Mean Corpuscular HGB Conc 31.4 g/dL (30.0-36.0); Mean Corpuscular Hemoglobin 30.3 pg (28.0-34.0); Mean Corpuscular Volume 96.7 fl (81-99); Mean Platelet Volume 9.9 fL (7.4-10.4); Monocytes # 0.7 10^3/uL (0.2-0.9); Neutrophils # 4.51 10^3/uL (1.8-7.7); Neutrophils % 63.8 %; Nucleated Red Blood Cells % 0 %; Platelet Count 143 10^3/cmm (130-400); Red Blood Count 2.44 10^6/uL (4.1-5.3); White Blood Count 7.1 10^3/uL (4.0-10.0)
[2022-01-14 04:55] LABS: Anion Gap 9.9 (5-19); Blood Urea Nitrogen 10 mg/dL (8-23); Calcium 7.6 mg/dL (8.5-10.5); Carbon Dioxide 23 mmol/L (22-29); Chloride 110 mmol/L (98-107); Glomerular Filtration Rate 124.6 mL/min (90-130); Glucose 133 mg/dL (65-115); Osmolality Calculated 289 mOsm/kg (285-295); Potassium 3.9 mmol/L (3.5-5.1); Sodium 139 mmol/L (136-145)
[2022-01-14] MEDS: clindamycin 900 MG/50 ML PREMIX 100 MG IV ×3 (04:58→20:05)
[2022-01-14] MEDS: acetaminophen 325 mg Tablet 650 MG PO ×2 (05:00→18:31)
[2022-01-14] MEDS: oxyCODONE 5 mg IR Tab/Cap PO ×3 (05:00→16:26)
[2022-01-14] MEDS: sodium chloride 0.9% (100 ml) 100 ML 15 ML (05:04)
[2022-01-14] MEDS: oxybutynin 5 mg Tablet PO (05:57)
[2022-01-14] MEDS: oxyCODONE 10 mg ER (12 HR) Tablet PO ×2 (07:42→19:45)
[2022-01-14] MEDS: azithromycin 250 mg Tablet 500 MG PO (09:08)
[2022-01-14] MEDS: docusate sodium 100 mg Capsule PO ×2 (09:09→18:33)
[2022-01-14] MEDS: sennosides-docusate Tablet 2 TAB PO ×2 (09:09→18:33)
[2022-01-14] MEDS: levothyroxine 50 mcg Tablet PO (09:10)
[2022-01-14] MEDS: topiramate 25 mg Tablet PO (09:10)
[2022-01-14] MEDS: duloxetine 30 mg Capsule 60 MG PO (09:11)
[2022-01-14] MEDS: cefTRIAXone 1,000 MG in sodium chloride 0.9% (plus) 50 ML 100 MG IV (09:11)
[2022-01-14] MEDS: gabapentin 300 mg Capsule PO ×3 (09:11→20:05)
[2022-01-14] MEDS: polyethylene glycol 3350 Pkt 17 gm PO (09:13)
--- NOTE | 2022-01-14 10:16 | PC.CHAP ---
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 hangersmith visit [] Patient/Family/Request visit [] Outpatient visit [] Follow-up visit [] Physician referral [] Code/Alert [x] Routine visit [] Staff referral [] Actively dying [x] Patient sleeping [] Family support [] [] Out of room [] Palliative care [] [] Receiving care in room [] Pre-surgical visit [] Trauma [] Long length of stay [x] ICU visit [x] Other:vent Relational/Emotional Strength [] Patient feels connected with others/family/visitors/staff [] Distress [] Loneliness/isolation [] Abandonment Spirituality of Patient [] Person of Dayanna [] Attends Druze of their Dayanna [] Believes in Prayer [] Reads Bible or Baptist materials [] There are Spiritual issues to be addressed Air Sealing Technician Interventions [x] Prayer [] Active listening [] Non-anxious presence [] Spiritual/emotional support [] Crisis/trauma care [] Spiritual counseling [] Bereavement support [] Provided bereavement packet [] Provided Bible/devotional materials [] Provided toy/stuffed animal, coloring book to patient or family member [] Provided Communion [] Anointing/Union [] Salvation [x] Completed spiritual assessment [] Other: Impact on Illness or Injury [] Angry [] Fearful [] Anxious [] Often cries [] Exhaustion [] Unable to work [] Unable to attend yazidi [] Unable to walk/stand [] Unable to read [] Unable to drive [] Unable to eat/drink [] Unable to sleep [] Unable to be with family [] Patient intubated [] Other: Summary Time spent with patient
[2022-01-14 10:35] LABS: Hematocrit 24.1 % (37.0-47.0); Hemoglobin 8.2 g/dL (11.5-15.3)
--- NOTE | 2022-01-14 11:45 | PC.NURSE ---
Sodium chloride held per verbal order.
--- NOTE | 2022-01-14 13:39 | P.PN_ITS ---
Subjective Subjective: This morning patient is again on levo, requiring 1 unit PRBC Postop anemia Her wound was examined by orthopedics, no active oozing of blood from her wound itself Hemoglobin after blood transfusion 8.2 Vitals/I&O/Wt Last Vital Signs Temp 98.9 F 01/14/22 13:00 Pulse 145 H 01/14/22 13:00 Resp 12 01/14/22 13:00 BP 107/75 01/14/22 13:00 Pulse Ox 93 01/14/22 13:00 O2 Del Method 01/14/22 13:00 O2 Flow Rate 2 01/12/22 20:00 01/13/22 01/14/22 01/14/22 22:59 06:59 14:59 Intake Total 1220 / 2453.589 1091.783 / 3545.372 1571.096 / 1571.096 Output Total 975 / 975 950 / 1925 1150 / 1150 Balance 245 / 1478.589 141.783 / 1620.372 421.096 / 421.096 Physical Exam Narrative: Patient is awake and alert Pain is well controlled Abdomen is soft Bowel sound present Currently on levo at 4 On room air No active distress respiratory distress No active chest pain Awake and alert Urinary Catheter Management: Portillo Latex: Cath Placed During This Visit: yes Reason for Continuing Indwelling Catheter: Accurate Measurement of Urinary Output in Critically Ill Patients Urinary Catheter Date of Insertion: 01/12/22 Urinary Catheter Time of Insertion: 13:40 Data : 01/14/22 10:30 01/14/22 03:55 Micro: Microbiology 01/12/22 13:40 Urine Culture - Final Urine Catheterized Escherichia coli 01/12/22 20:36 Blood Culture - Preliminary Blood NEGATIVE TO DATE 01/12/22 20:41 Blood Culture - Preliminary Blood NEGATIVE TO DATE A&P Assessment and plan (1) Postoperative anemia: Status: Acute (2) Postoperative fever: Status: Acute (3) S/P spinal fusion: Status: Acute (4) Postoperative hypovolemic shock: Status: Acute (5) Hemorrhagic shock: Status: Acute (6) Tachyarrhythmia: Status: Acute Plan Postop anemia, this is her third unit of PRBC Levophed being titrated off Postoperative fever, concern for atelectasis versus pneumonia She is currently doing well on room air I will go ahead and discontinue azithromycin, will continue ceftriaxone, abnormal UA noted as well Opioids with bowel regimen Tachycardia, it could be related to use of Levophed, I will go ahead and request another twelve-lead EKG, please note propanolol has been on hold because of low blood pressure Rebound tachycardia? Echo is unremarkable Grade 1 diastolic dysfunction EF 6070% Check magnesium level, previous EKG showed sinus rhythm Patient is full code DVT prophylaxis contraindicated for now She is on regular diet Patient wants to go home and her friend who is 26-year-old present to take care of her, she does not want to go to any retirement Continue anxiolytic duloxetine and gabapentin Attestations Medical Necessity Statement*: Continue monitoring in ICU Time Spent in Patient Care: 40 Coding Level of Care Code Acute Carrier Operator for Jade Gracia Diagnoses Postoperative anemia D64.9 Postoperative fever R50.82 S/P spinal fusion Z98.1 Postoperative hypovolemic shock T81.19XA Hemorrhagic shock R57.8 Tachyarrhythmia R00.0
--- NOTE | 2022-01-14 13:57 | ECG_ITS ---
[facility] Test Date: 2022-01-14 Pat Name: Niki Agosto Department: Room: [facility] Gender: Female Press Loader: : 1960 Requested By: Marguerite Jules Order Number: [id number] Kirti MD: Elda Johnson M.D. Measurements Intervals [place] Rate: 112 P: 37 MA: 195 QRS: 3 QRSD: 96 T: 32 QT: 365 QTc: 499 Interpretive Statements SINUS TACHYCARDIA SEPTAL MYOCARDIAL INFARCTION , PROBABLY OLD [40+ ms Q WAVE IN V1/V2] Compared to ECG 12/14/2021 23:22:44 Myocardial infarct finding now present Sinus rhythm no longer present Electronically Signed On 01-14-2022 19:33:05 CDT by Elda Johnson M.D. [id number]
--- NOTE | 2022-01-14 14:51 | PC.NURSE ---
Patient able to stand and ambulate to bedside chair with PT. Patient declined staying in bedside chair for afternoon meal and sat at the edge of her bed while consuming her meal. While sitting, her heart rate increased to the 140's and 160's, patient remained unsystematic. Levophed running at 4mcg/min at that time. After patient ate, she requested to lie back down. Heart rate decreased to 80's. Dr. Jules verbally ordered levophed to be titrated down for increasing heart rate. Levophed titrated to 2mcg/min. EKG obtained.
--- NOTE | 2022-01-14 15:35 | PC.NURSE ---
Dr. Jules notified of heart rate of 101 and blood pressure of 92/50 with levophed at 2mcg/min. Orders for H&H, cortisol, TSH and other lab work to follow.
--- NOTE | 2022-01-14 15:40 | PM.PN ---
Subjective Subjective: POD 2 Pt Resting and appears comfortable when observing patient, but upon awakening her, she immediately begins asking for more pain medication. She denies SOB/CP or RAMIREZ. Vitals/I&O/Wt Last Vital Signs Temp 98.9 F 01/14/22 13:00 Pulse 104 H 01/14/22 15:07 Resp 14 01/14/22 14:00 BP 106/67 01/14/22 14:00 Pulse Ox 93 01/14/22 14:00 O2 Del Method 01/14/22 14:00 O2 Flow Rate 2 01/12/22 20:00 01/14/22 01/14/22 01/14/22 06:59 14:59 22:59 Intake Total 1091.783 / 3545.372 1657.710 / 1657.710 Output Total 950 / 1925 1268 / 1268 Balance 141.783 / 1620.372 389.710 / 389.710 Physical Exam Narrative: Incision c/d, fires in all motor groups with good strength, feet warm with good cap refill, DP/PT 2 +, calves supple Urinary Catheter Management: Portillo Latex: Cath Placed During This Visit: yes Reason for Continuing Indwelling Catheter: Accurate Measurement of Urinary Output in Critically Ill Patients Urinary Catheter Date of Insertion: 01/12/22 Urinary Catheter Time of Insertion: 13:40 Data : 01/14/22 10:30 01/14/22 03:55 Micro: Microbiology 01/12/22 13:40 Urine Culture - Final Urine Catheterized Escherichia coli 01/12/22 20:36 Blood Culture - Preliminary Blood NEGATIVE TO DATE 01/12/22 20:41 Blood Culture - Preliminary Blood NEGATIVE TO DATE A&P Assessment and plan (1) Postoperative anemia: Was transfused blood this AM, SMI for Pulm toilet, Physical Therpay to Eval. H/H in AM, Status: Acute (2) S/P spinal fusion: Status: Acute Attestations Medical Necessity Statement*: Defer to Medical Team Coding Level of Care Code Acute Returned Case Inspector for Jade Gracia Diagnoses Postoperative anemia D64.9 S/P spinal fusion Z98.1
[2022-01-14] MEDS: hydrocortisone 100 mg/2 mL SDV IVP (15:45)
[2022-01-14] MEDS: calcium gluconate 0.9% NaCL 1 GM/50 ML PREMIX IV (15:45)
[2022-01-14 15:59] LABS: Hematocrit 23.6 % (37.0-47.0); Hemoglobin 7.6 g/dL (11.5-15.3)
[2022-01-14] MEDS: albumin 12.5 GM/250 ML VIAL IV (15:59)
--- NOTE | 2022-01-14 16:15 | PC.NURSE ---
Educated patient on importance of turning to relieve pressure areas and importance of using SI as well as importance of deep breathing and coughing. Patient refuses to be turned and prefers to lay on right side. Patient states, this is how I lay at home, I will be fine.
--- NOTE | 2022-01-14 16:18 | CTR_ITS ---
PROCEDURE INFORMATION: Exam: CTA Abdomen and Pelvis With Contrast Exam date and time: 01/14/2022 5:08 PM Age: 61 years old Clinical indication: Abdominal pain; Generalized; Prior surgery; Surgery date: Post-operative (0-2 days); Surgery type: Spinal fusion; Additional info: Post op anemia , spinal fusion surgery 2 days ago TECHNIQUE: Imaging protocol: Computed tomographic angiography of the abdomen and pelvis with contrast. 3D rendering (Not supervised by radiologist): MIP and/or 3D reconstructed images were created by the technologist. Radiation optimization: All CT scans at this facility use at least one of these dose optimization techniques: automated exposure control; mA and/or kV adjustment per patient size (includes targeted exams where dose is matched to clinical indication); or iterative reconstruction. Contrast material: OMNIPAQUE 350; Contrast volume: 95 ml; Contrast route: INTRAVENOUS (IV); COMPARISON: CT abdomen pelvis w con* [id number] 10/06/2021 6:18 PM RADIATION DOSE METRICS: Total DLP (mGy-cm): 1226.5 FINDINGS: Lungs: Bibasilar atelectasis. Aorta: No aortic aneurysm. No aortic dissection. Celiac trunk and mesenteric arteries: No occlusion or significant stenosis. Renal arteries: No occlusion or significant stenosis. Right iliac arteries: No occlusion or significant stenosis. Left iliac arteries: No occlusion or significant stenosis. Liver: No mass. Gallbladder and bile ducts: Cholelithiasis with distention of the gallbladder, ultrasound could further evaluate this. Pancreas: Unremarkable. No mass. No ductal dilation. Spleen: Unremarkable. No splenomegaly. Adrenal glands: Unremarkable. No mass. Kidneys and ureters: Right kidney nonobstructing calyceal stone. Stomach and bowel: Constipation. Appendix: No evidence of appendicitis. Intraperitoneal space: Unremarkable. No free air. No significant fluid collection. Lymph nodes: Unremarkable. No enlarged lymph nodes. Urinary bladder: Portillo catheter in the urinary bladder with air presumed iatrogenic. Reproductive: Unremarkable as visualized. Bones/joints: Surgical hardware throughout the thoracolumbar spine with multilevel chronic appearing compression fractures. Retropulsion of T12 vertebral body fracture fragments is seen resulting in moderate spinal canal narrowing, similar to prior exam. Soft tissues: Somewhat localized fluid collection in the midline subcutaneous soft tissue overlying the thoracic and lumbar spine in the area of surgical hardware with some subcutaneous emphysema seen especially in the region of the thoracic spine, measuring up to 2.5 cm transverse dimension suggestive of a seroma. CT/CT angio chest abdomen pelvis IMPRESSION: 1. Negative for contrast extravasation seen to suggest active bleeding. 2. Bibasilar atelectasis. 3. Constipation. 4. Cholelithiasis with distention of the gallbladder, ultrasound could further evaluate this. 5. Right kidney nonobstructing calyceal stone. 6. Portillo catheter in the urinary bladder with air presumed iatrogenic. 7. Surgical hardware throughout the thoracolumbar spine with multilevel chronic appearing compression fractures. 8. Somewhat localized fluid collection in the midline subcutaneous soft tissue overlying the thoracic and lumbar spine in the area of surgical hardware with some subcutaneous emphysema seen especially in the region of the thoracic spine, measuring up to 2.5 cm transverse dimension suggestive of a seroma. 9. Retropulsion of T12 vertebral body fracture fragments is seen resulting in moderate spinal canal narrowing, similar to prior exam.
[2022-01-14 16:41] LABS: Cortisol Random 5.53 ug/dL (2.47-19.5)
[2022-01-14] MEDS: iohexol 350 mg/mL 100 mL Btl IV (17:33)
[2022-01-14] MEDS: sodium chloride 0.9% (100 ml) 100 ML (18:24)
[2022-01-14] MEDS: topiramate 25 mg Tablet 50 MG PO (18:32)
--- NOTE | 2022-01-14 19:18 | PC.NURSE ---
Levophed drip not running at time of report.
--- NOTE | 2022-01-14 19:22 | PC.NURSE ---
Rounded with Dr. Stoll and asked about dressing change orders. Dr. Stoll stated to change dressing only when visibly soiled.
[2022-01-14] MEDS: oxybutynin chloride XL 5 MG TABLET 10 MG PO (20:05)
[2022-01-15] VITALS (52 sets, daily range): BP systolic 97–153; BP diastolic 50–103; PULSE 63–105; RESP 10–24; TEMP 36.6–37.2; O2SAT 91–99
[2022-01-15] MEDS: oxyCODONE 5 mg IR Tab/Cap PO ×5 (00:30→18:55)
[2022-01-15] MEDS: SUMAtriptan 25 mg Tablet 50 MG PO (00:30)
[2022-01-15] MEDS: hydrocortisone 100 mg/2 mL SDV IVP (02:52)
[2022-01-15] MEDS: clindamycin 900 MG/50 ML PREMIX 100 MG IV (04:05)
[2022-01-15 05:06] LABS: Basophils % 0.1 %; Eosinophils % 0.3 %; Hematocrit 29.9 % (37.0-47.0); Hemoglobin 9.4 g/dL (11.5-15.3); Lymphocytes # 0.7 10^3/uL (0.8-4.8); Lymphocytes % 10.1 %; Mean Corpuscular HGB Conc 31.4 g/dL (30.0-36.0); Mean Corpuscular Hemoglobin 30.7 pg (28.0-34.0); Mean Corpuscular Volume 97.7 fl (81-99); Monocytes # 0.4 10^3/uL (0.2-0.9); Monocytes % 6.4 %; Neutrophils # 5.57 10^3/uL (1.8-7.7); Neutrophils % 82.4 %; Nucleated Red Blood Cells % 0 %; Platelet Count 158 10^3/cmm (130-400); Red Blood Count 3.06 10^6/uL (4.1-5.3); Red Cell Distribution Width 15.4 % (12.1-15.1); White Blood Count 6.8 10^3/uL (4.0-10.0)
[2022-01-15 05:28] LABS: Anion Gap 12.5 (5-19); Blood Urea Nitrogen 5 mg/dL (8-23); Calcium 8.1 mg/dL (8.5-10.5); Carbon Dioxide 19 mmol/L (22-29); Chloride 111 mmol/L (98-107); Glomerular Filtration Rate 161.2 mL/min (90-130); Glucose 143 mg/dL (65-115); Osmolality Calculated 288 mOsm/kg (285-295); Potassium 3.5 mmol/L (3.5-5.1); Sodium 139 mmol/L (136-145)
[2022-01-15] MEDS: oxybutynin 5 mg Tablet PO (05:47)
--- NOTE | 2022-01-15 06:55 | PC.NURSE ---
Bedside report completed with ARUNA Liu
--- NOTE | 2022-01-15 08:00 | PC.NURSE ---
JOSE A Shields removed drain. ABD pads removed Silverlon remains intact.
--- NOTE | 2022-01-15 08:14 | PM.PN ---
Subjective Subjective: POD 3 Patient much more alert this morning. She still complains of back pain leg pain is much improved. She denies any shortness of breath, chest pain or headaches. Vitals/I&O/Wt Last Vital Signs Temp 98.4 F 01/15/22 03:00 Pulse 84 01/15/22 06:00 Resp 14 01/15/22 06:00 BP 125/77 01/15/22 06:00 Pulse Ox 93 01/15/22 06:00 O2 Del Method 01/14/22 19:49 O2 Flow Rate 2 01/12/22 20:00 01/14/22 01/15/22 01/15/22 22:59 06:59 14:59 Intake Total 1709.735 / 3367.445 635 / 4002.445 Output Total / 2017 2240 / 4258 Balance 959.735 / 1349.445 -1605 / -255.555 Weight last 48 hrs Weight 230 lb Physical Exam Narrative: She is alert oriented x3 has a good general appearance normal mood and affect. Incisions with slight drainage around the drain site which the Hemovac drain was discontinued today with compressive dressing applied. Continued Silverlon over the incisional area. She has good sensation light touch down both lower extremities feet are warm good cap refill pulses palpable. Moving both lower extremities and fires in all digits. Urinary Catheter Management: Portillo Latex: Cath Placed During This Visit: yes Reason for Continuing Indwelling Catheter: Accurate Measurement of Urinary Output in Critically Ill Patients Urinary Catheter Date of Insertion: 01/12/22 Urinary Catheter Time of Insertion: 13:40 Data : 01/15/22 04:58 01/15/22 04:58 Micro: Microbiology 01/12/22 13:40 Urine Culture - Final Urine Catheterized Escherichia coli A&P Assessment and plan (1) Postoperative anemia: Discussed with the patient at length her postop anemia consistent with revision surgery extent of the decompression as well as the fact that she was taking Mobic up until the day of surgery which all contributed to excessive blood loss intraoperatively and postoperatively. Encouraged her to continue incentive spirometry for pulmonary toilet. We will have physical therapy work with her to begin mobilizing to help with bowel movements. We will also discontinue the Portillo catheter today. From orthopedic standpoint to transfer her to the [facility] surgical floor when medically stable. Patient is wanting to go home. Discussed with her at length we will make sure we have a safe transition and will ask physical therapy to give their assessment of that transition as well. If she is up walking with good stability and has moved her bowels certainly considering transferring home as she states she has a friend who will be there 04/01 to take care of her. Status: Acute (2) S/P spinal fusion: Status: Acute Attestations Medical Necessity Statement*: Possibly tomorrow Coding Level of Care Code Acute Data Collector for Jade Gracia Diagnoses Postoperative anemia D64.9 S/P spinal fusion Z98.1
[2022-01-15] MEDS: polyethylene glycol 3350 Pkt 17 gm PO (08:29)
[2022-01-15] MEDS: topiramate 25 mg Tablet PO (08:29)
[2022-01-15] MEDS: gabapentin 300 mg Capsule PO ×3 (08:29→20:33)
[2022-01-15] MEDS: docusate sodium 100 mg Capsule PO ×2 (08:29→18:11)
[2022-01-15] MEDS: duloxetine 30 mg Capsule 60 MG PO (08:29)
[2022-01-15] MEDS: oxyCODONE 10 mg ER (12 HR) Tablet PO ×2 (08:30→20:46)
[2022-01-15] MEDS: sennosides-docusate Tablet 2 TAB PO ×2 (08:30→18:11)
[2022-01-15] MEDS: levothyroxine 50 mcg Tablet PO (08:31)
[2022-01-15] MEDS: cefTRIAXone 1,000 MG in sodium chloride 0.9% (plus) 50 ML 100 MG IV (08:40)
[2022-01-15] MEDS: dexamethasone 4 mg/mL INJ 2 MG IVP (08:40)
--- NOTE | 2022-01-15 09:54 | PM.PN ---
Subjective Subjective: Patient is endorsing feeling better today, hemoglobin 9.4 status post 4 units, 1 unit of platelets and cryoprecipitate No active bleeding CTA chest 7 pelvis unremarkable Dressing is not soaked with blood No active GI bleed Patient is off Levophed since 1800 yesterday Patient is stating that she might get a bowel movement today, tolerating diet, work with PT We might discharge her tomorrow I would like to keep her in ICU for 1 more day because of intermittent vasopressor usage Vitals/I&O/Wt Last Vital Signs Temp 98.4 F 01/15/22 03:00 Pulse 93 01/15/22 09:27 Resp 18 01/15/22 09:27 BP 125/77 01/15/22 06:00 Pulse Ox 95 01/15/22 09:27 O2 Del Method 01/15/22 09:27 O2 Flow Rate 2 01/12/22 20:00 01/14/22 01/15/22 01/15/22 22:59 06:59 14:59 Intake Total 1709.735 / 3367.445 635 / 4002.445 Output Total 2017 2240 / 4258 Balance 959.735 / 1349.445 -1605 / -255.555 Weight last 48 hrs Weight 104.326 kg Physical Exam Narrative: Patient is laying supine No active GI bleed Abdomen soft Nontender S1, S2 Hemodynamically stable Saturating well on room air Mild edema of lower extremities Awake and alert Nonfocal neuro exam Urinary Catheter Management: Portillo Latex: Cath Placed During This Visit: yes Reason for Continuing Indwelling Catheter: Accurate Measurement of Urinary Output in Critically Ill Patients Urinary Catheter Date of Insertion: 01/12/22 Urinary Catheter Time of Insertion: 13:40 Data : 01/15/22 04:58 01/15/22 04:58 Micro: Microbiology 01/12/22 13:40 Urine Culture - Final Urine Catheterized Escherichia coli A&P Assessment and plan (1) Tachyarrhythmia: Status: Acute (2) Postoperative anemia: Status: Acute (3) Postoperative fever: Status: Acute (4) S/P spinal fusion: Status: Acute (5) Postoperative hypovolemic shock: Status: Acute (6) Hemorrhagic shock: Status: Acute Plan Postoperative anemia: Resolved, hemoglobin stable, status post 4 unit PRBC, 1 platelets, 1 bag of cryoprecipitate Postoperative fever related to atelectasis, UTI: Continue ceftriaxone until the day of discharge Patient worked with PT on daily basis We might be able to discharge her tomorrow if she gets a bowel movement, hemoglobin remained stable, she is able to work with PT Sinus tachycardia: Resolved it was still related to Levophed, no hemodynamic instability No signs of pneumonia, she has remained afebrile Skin rash related to abdominal binder, I will give her Decadron, patient does not do well with Benadryl Discontinue stress dose steroids cortisol, TSH normal Bowel regimen, opioid, full code Regular diet Attestations Medical Necessity Statement*: Discharge tomorrow if stable Time Spent in Patient Care: 40 Coding Level of Care Code Acute Farm Contractor Buyer for [facility] Fwd Diagnoses Tachyarrhythmia R00.0 Postoperative anemia D64.9 Postoperative fever R50.82 S/P spinal fusion Z98.1 Postoperative hypovolemic shock T81.19XA Hemorrhagic shock R57.8
--- NOTE | 2022-01-15 14:20 | PC.NURSE ---
Pt complaining of itchy. Abdominal binder removed. Abdomen and chest reddened. Assited pt with soap and water bathing. applied Nystatin for itching, Linen change provided. shampooed with shampoo cap. Pt stated she felt much better.
[2022-01-15] MEDS: nystatin cream 30 gm 1 APPLIC TOPICAL (14:25)
--- NOTE | 2022-01-15 16:10 | PC.NURSE ---
Dr Stoll stated ok to leave the abdominal binder off, it was to help control the bleeding.
[2022-01-15] MEDS: topiramate 25 mg Tablet 50 MG PO (18:11)
--- NOTE | 2022-01-15 19:14 | PC.NURSE ---
Bedside report completed with Reta Castellano RN
--- NOTE | 2022-01-15 19:15 | PC.NURSE ---
Shift Note: Pt had a good day. Back dressing remain intact. No bleeding noted. Abdominal binder off, it was making her very itchy ad redness. Bathing and Nystatin cream applied for her comfort. She has been out of bed several times today , up to [facility] and ambulated once with PT. She is steady with her walker. She has had OXycodone ER once and Oxy IR twice this shift. She has had 2 hard BM this sift. Frequent safety and comfort rounds continue. Orders and/or nursing care completed as indicated. Patient monitored for response to intervention and treatment(s). Education provided includes Oxy ER and IR, Nystatin, being out of bed moving, and plan of care.. Patient verbalized understanding of planof care and education topics. . Will continue to monitor.
[2022-01-15] MEDS: oxybutynin chloride XL 5 MG TABLET 10 MG PO (20:33)
[2022-01-15] MEDS: fentaNYL 25 mcg Patch 1 PATCH TRANSDERMA (20:33)
--- NOTE | 2022-01-15 22:45 | PC.NURSE ---
Dexamethasone Patient complaining of itching on abdomen, around groin, and on arms. Redness observed scattered on these areas. Same complaint made during dayshift in which dexamethasone 1 mg IVP was administered and nystatin applied. Dr. Gregory contacted; telephone order received for 25 mg Benadryl IVP once. Patient stated, I can't take benadryl. It makes me hyper and jittery. Dr. Gregory contacted again and order received for 1 mg dexamethasone IVP once. Medication administered per AUG.
[2022-01-15] MEDS: dexamethasone 4 mg/mL INJ 1 MG IVP (22:54)
--- NOTE | 2022-01-15 22:59 | PHA.FALL ---
A Pharmacy Consult Was Conducted For Niki Agosto Due To: Samson Fall Scale Risk Level: High Fall Risk On 01/15/22 20:00 And A Medication Fall Risk Score Greater Than 10. The Recommendations Are As Follows:This patient is currently on the following medications: Oxycodone, Morphine, Baclofen, Gabapentin, and Topiramate. Thesedrugs alone and in combination may possess additive and/or synergistic effects of sedation, slowed reaction time, impaired balance, delirium bradycardia, gait changes, decreased muscle tone, and ataxia. It is recommended that the dosages be reduced to the lowest effective dose and for the shortest time possible. Particular attention should be directed toward postural hypostension.
[2022-01-16] VITALS (16 sets, daily range): BP systolic 115–153; BP diastolic 67–109; PULSE 66–118; RESP 10–24; TEMP 36.6–37.2; O2SAT 90–100; BMI 32.5
[2022-01-16] MEDS: oxyCODONE 5 mg IR Tab/Cap PO ×2 (02:03→08:00)
[2022-01-16 03:33] LABS: Basophils % 0.3 %; Eosinophils % 0.6 %; Hematocrit 29.2 % (37.0-47.0); Hemoglobin 9.3 g/dL (11.5-15.3); Lymphocytes % 14.8 %; Mean Corpuscular HGB Conc 31.8 g/dL (30.0-36.0); Mean Corpuscular Hemoglobin 30.2 pg (28.0-34.0); Mean Corpuscular Volume 94.8 fl (81-99); Mean Platelet Volume 9.9 fL (7.4-10.4); Monocytes # 0.5 10^3/uL (0.2-0.9); Monocytes % 7.8 %; Neutrophils % 75.5 %; Nucleated Red Blood Cells % 0 %; Platelet Count 188 10^3/cmm (130-400); Red Blood Count 3.08 10^6/uL (4.1-5.3); Red Cell Distribution Width 15.5 % (12.1-15.1); White Blood Count 6.9 10^3/uL (4.0-10.0)
[2022-01-16 04:01] LABS: Anion Gap 11.7 (5-19); Blood Urea Nitrogen 8 mg/dL (8-23); Calcium 8.2 mg/dL (8.5-10.5); Carbon Dioxide 24 mmol/L (22-29); Chloride 111 mmol/L (98-107); Glomerular Filtration Rate 161.2 mL/min (90-130); Glucose 152 mg/dL (65-115); Osmolality Calculated 297 mOsm/kg (285-295); Potassium 3.7 mmol/L (3.5-5.1); Sodium 143 mmol/L (136-145)
[2022-01-16] MEDS: morphine 4 mg/mL SDV 1 mL IVP (06:12)
[2022-01-16] MEDS: oxybutynin 5 mg Tablet PO (06:12)
--- NOTE | 2022-01-16 06:46 | PM.PN ---
Subjective Subjective: POD 4 Patient resting comfortably. Patient is wanting to go home. She states she was up walking with physical therapy yesterday. Bowel movements x2. Vitals/I&O/Wt Last Vital Signs Temp 98.5 F 01/16/22 04:00 Pulse 69 01/16/22 06:00 Resp 22 H 01/16/22 06:12 BP 116/70 01/16/22 06:00 Pulse Ox 99 01/16/22 06:12 O2 Del Method 01/16/22 06:00 O2 Flow Rate 2 01/12/22 20:00 01/15/22 01/15/22 01/16/22 14:59 22:59 06:59 Intake Total 290 / 290 300 / 590 Output Total 501 / 501 126 / 627 1349 / 1976 Balance -211 / -211 174 / -37 -1350 / -1387 Weight last 48 hrs Weight 220 lb Weight 230 lb Physical Exam Narrative: She is alert oriented x3 has a good general appearance normal mood and affect.? Incisions with slight drainage around the drain site which the Hemovac drain was discontinued today with compressive dressing applied.? Continued Silverlon over the incisional area.? She has good sensation light touch down both lower extremities feet are warm good cap refill pulses palpable.? Moving both lower extremities and fires in all digits. Urinary Catheter Management: Portillo Latex: Cath Placed During This Visit: yes, but has since been removed by the nurse Reason for Continuing Indwelling Catheter: Decision to DC Catheter Urinary Catheter Date of Insertion: 01/12/22 Urinary Catheter Time of Insertion: 13:40 Date Urinary Catheter Removed: 01/15/22 Time Urinary Catheter Discontinued: 11:25 Data : 01/16/22 03:10 01/16/22 03:10 A&P Assessment and plan (1) Postoperative anemia: Have physical therapy mobilize as long she is medically stable we will work to discharge her home. For wound check. Continue with incentive spirometry at home for pulmonary toilet. Continue to mobilize at home no bending lifting or twisting activities. Call if there is problems. We will see her back in the office in 1 week's time Status: Acute (2) S/P spinal fusion: Status: Acute Attestations Medical Necessity Statement*: DC home when cleared by Medical Team Coding Level of Care Code Acute Spinner Continuous for Chg Fwd Diagnoses Postoperative anemia D64.9 S/P spinal fusion Z98.1
[2022-01-16] MEDS: gabapentin 300 mg Capsule PO (08:06)
[2022-01-16] MEDS: topiramate 25 mg Tablet PO (08:07)
[2022-01-16] MEDS: duloxetine 30 mg Capsule 60 MG PO (08:07)
[2022-01-16] MEDS: docusate sodium 100 mg Capsule PO (08:07)
[2022-01-16] MEDS: levothyroxine 50 mcg Tablet PO (08:07)
--- NOTE | 2022-01-16 08:54 | PC.NURSE ---
Spoke to Dr. Jules, patient ok to discharge home from his standpoint.
[2022-01-16] MEDS: oxyCODONE 10 mg ER (12 HR) Tablet PO (09:53)
--- NOTE | 2022-01-16 10:40 | PC.NURSE ---
Patient discharged to home. Left via wheelchair and 2 externs to assist patient to friends vehicle. Extensive education provided to patient at bedside regarding S/S of infection and care at home after spinal fusion. Patient did not have any questions. Discharge paperwork ,highlighted, with patient and with patient as well as belongings.
--- NOTE | 2022-01-22 08:18 | PM.DCS ---
Discharge Providers Date of Admission: 01/12/22 16:55 Date of Discharge: January 16, 2022 Attending Provider at Admission: Cristian Stoll DO Attending Provider at Discharge: Cristian Stoll DO Primary Care Provider: Charity Salazar MD Diagnoses at Discharge Discharge Diagnosis (1) Postoperative anemia: Status: Acute (2) S/P spinal fusion: Status: Acute Reason for Visit Reason for Visit: PS WITH PLIF [id number] Hospital Course Hospital Course uneventful Physical Exam Urinary Catheter Management: Portillo Latex: Cath Placed During This Visit: yes, but has since been removed by the nurse Reason for Continuing Indwelling Catheter: Decision to DC Catheter Urinary Catheter Date of Insertion: 01/12/22 Urinary Catheter Time of Insertion: 13:40 Date Urinary Catheter Removed: 01/15/22 Time Urinary Catheter Discontinued: 11:25 Discharge Data Studies Completed and Pending Completed Studies During Hospitalization Category Date Time Status CTA chest abdomen pelvis [CT angio chest abdomen pelvis Cat Scan 01/14/22 16:18 Completed ] Stat XR chest 1V portable [id number] Routine Exams 01/13/22 08:11 Completed XR lumbar spine 2-3V* [id number] Routine Exams 01/12/22 Completed CV. echo complete* [id number] Urgent Ultrasound 01/12/22 19:43 Completed Radiology Impressions Lumbar Spine X-Ray 01/12/22 00:00 IMPRESSION: Images obtained for intraoperative purposes. Chest X-Ray 01/13/22 08:11 IMPRESSION: 1. Cardiomegaly with tortuous thoracic aorta. 2. Slight volume loss LEFT lung with linear atelectasis LEFT midlung. Recommend correlation for developing postoperative pneumonia. 3. Partially visualized thoracolumbar pedicle screw fixation. Chest/Abdomen/Pelvis CTA 01/14/22 16:18 IMPRESSION: 1. Negative for contrast extravasation seen to suggest active bleeding. 2. Bibasilar atelectasis. 3. Constipation. 4. Cholelithiasis with distention of the gallbladder, ultrasound could further evaluate this. 5. Right kidney nonobstructing calyceal stone. 6. Portillo catheter in the urinary bladder with air presumed iatrogenic. 7. Surgical hardware throughout the thoracolumbar spine with multilevel chronic appearing compression fractures. 8. Somewhat localized fluid collection in the midline subcutaneous soft tissue overlying the thoracic and lumbar spine in the area of surgical hardware with some subcutaneous emphysema seen especially in the region of the thoracic spine, measuring up to 2.5 cm transverse dimension suggestive of a seroma. 9. Retropulsion of T12 vertebral body fracture fragments is seen resulting in moderate spinal canal narrowing, similar to prior exam. Laboratory Results WBC 6.9 10^3/uL (4.0-10.0) 01/16/22 03:10 RBC 3.08 10^6/uL (4.1-5.3) L 01/16/22 03:10 Hgb 9.3 g/dL (11.5-15.3) L 01/16/22 03:10 Hct 29.2 % (37.0-47.0) L 01/16/22 03:10 MCV 94.8 fl (81-99) 01/16/22 03:10 MCH 30.2 pg (28.0-34.0) 01/16/22 03:10 MCHC 31.8 g/dL (30.0-36.0) 01/16/22 03:10 RDW 15.5 % (12.1-15.1) H 01/16/22 03:10 Plt Count 188 10^3/cmm (130-400) 01/16/22 03:10 MPV 9.9 fL (7.4-10.4) 01/16/22 03:10 Neut % (Auto) 75.5 % 01/16/22 03:10 Lymph % (Auto) 14.8 % 01/16/22 03:10 [place] % (Auto) 7.8 % 01/16/22 03:10 Eos % (Auto) 0.6 % 01/16/22 03:10 Baso % (Auto) 0.3 % 01/16/22 03:10 Neut # (Auto) 5.20 10^3/uL (1.8-7.7) 01/16/22 03:10 Lymph # (Auto) 1.0 10^3/uL (0.8-4.8) 01/16/22 03:10 [place] # (Auto) 0.5 10^3/uL (0.2-0.9) 01/16/22 03:10 Eos # (Auto) 0.0 10^3/uL (0.0-0.8) 01/16/22 03:10 Baso # (Auto) 0.0 10^3/uL (0.0-0.1) 01/16/22 03:10 Nucleated RBC % (auto) 0 % 01/16/22 03:10 Nucleated RBCs # 0.0 /100WBC 01/16/22 03:10 Sodium 143 mmol/L (136-145) 01/16/22 03:10 Potassium 3.7 mmol/L (3.5-5.1) 01/16/22 03:10 Chloride 111 mmol/L (98-107) H 01/16/22 03:10 Carbon Dioxide 24 mmol/L (22-29) 01/16/22 03:10 Anion Gap 11.7 (5-19) 01/16/22 03:10 BUN 8 mg/dL (8-23) 01/16/22 03:10 Creatinine 0.4 mg/dL (0.5-0.9) L 01/16/22 03:10 GFR Calculation 161.2 mL/min (90-130) H 01/16/22 03:10 Glucose 152 mg/dL (65-115) H 01/16/22 03:10 POC Glucose 172 mg/dL (70-110) H 01/12/22 22:45 Calculated Osmolality 297 mOsm/kg (285-295) H 01/16/22 03:10 Lactate 1.1 mmol/L (0.5-2.2) 01/12/22 17:43 Calcium 8.2 mg/dL (8.5-10.5) L 01/16/22 03:10 Magnesium 1.7 mg/dL (1.7-2.3) 01/13/22 03:22 Iron 148 ug/dL (37-145) H 01/12/22 17:43 TIBC 204 mcg/dl 01/12/22 17:43 % Saturation 72.5 % (20-50) H 01/12/22 17:43 Unsat Iron Binding 56 ug/dL (112-347) L 01/12/22 17:43 Ferritin 334 ng/mL (15-150) H 01/12/22 17:43 Total Bilirubin 0.5 mg/dL (0.15-1.2) 01/13/22 03:22 AST 20 U/L (0-32) 01/13/22 03:22 ALT 14 U/L (0-33) 01/13/22 03:22 Alkaline Phosphatase 75 IU/L (35-105) 01/13/22 03:22 Total Protein 5.2 g/dL (6.6-8.7) L 01/13/22 03:22 Albumin 3.2 g/dL (3.5-5.2) L 01/13/22 03:22 Globulin 2.0 g/dL (1.3-4.6) 01/13/22 03:22 Procalcitonin 0.24 ng/mL (0-0.5) 01/13/22 03:22 Random Cortisol 5.53 ug/dL (2.47-19.5) 01/14/22 15:44 Urine Color Yellow (Yellow) 01/12/22 13:40 Urine Appearance Cloudy (CLEAR) 01/12/22 13:40 Urine pH 7 (5-7) 01/12/22 13:40 Ur Specific [place] 1.010 (1.005-1.030) 01/12/22 13:40 Urine Protein 1+ (Negative) H 01/12/22 13:40 Urine Glucose (UA) Norm (Normal) 01/12/22 13:40 Urine Ketones Negative (Negative) 01/12/22 13:40 Urine Blood 3+ (Negative) H 01/12/22 13:40 Urine Nitrate Positive (Negative) H 01/12/22 13:40 Urine Bilirubin Neg (Negative) 01/12/22 13:40 Urine Urobilinogen Norm mg/dL (Negative) 01/12/22 13:40 Ur Leukocyte Esterase 2+ (Negative) H 01/12/22 13:40 Urine RBC 10-15 /hpf (0-2) H 01/12/22 13:40 Urine WBC Too numerous to cnt /hpf (0-5) H 01/12/22 13:40 Ur Squamous Epith Cells 5-10 /hpf (0-5) H 01/12/22 13:40 Amorphous Sediment Not Reportable 01/12/22 13:40 Urine Bacteria 2+ /hpf (NONE) H 01/12/22 13:40 Blood Type O Positive 01/12/22 10:18 Rho(D) Type Positive 01/12/22 10:18 Antibody Screen Negative 01/12/22 10:18 Crossmatch See Detail 01/12/22 10:18 Vitals Last Vital Signs Temp 98.7 F 01/16/22 09:31 Pulse 82 01/16/22 10:00 Resp 15 01/16/22 10:00 BP 149/103 01/16/22 10:00 Pulse Ox 90 01/16/22 10:00 O2 Del Method 01/16/22 08:00 O2 Flow Rate 2 01/12/22 20:00 Discharge Plan Discharge Patient Disposition: Home Condition: Stable Prescriptions: New Stool Softener-Laxative 8.6-50 mg Tablet 2 tab PO BID Qty: 20 0RF docusate sodium 100 mg Capsule 100 mg PO BID Qty: 60 0RF Continued oxybutynin chloride 5 mg tablet See Rx Instructions .ROUTE .COMPLEX Rx Instructions: 5 mg orally in morning; 10mg HS baclofen 20 mg tablet 20 mg PO QID PRN (Reason: spasms) 30 Days Qty: 120 1RF levothyroxine 50 mcg capsule 50 mcg PO QDAY topiramate 50 mg tablet 50 mg PO QPM verapamil 120 mg tablet 120 mg PO DAILY duloxetine [Cymbalta] 30 mg capsule,delayed release(DR/EC) 60 mg PO QDAY topiramate 25 mg tablet 25 mg PO DAILY gabapentin 300 mg capsule 300 mg PO TID (DME) Bone Growth Stimulator E0748 See Rx Instructions .Route .MEDSUPPLY Qty: 1 0RF Rx Instructions: As directed oxybutynin chloride 10 mg tablet extended release 24hr 10 mg PO QPM sumatriptan succinate 50 mg Tablet 50 mg PO Q2H PRN (Reason: Migraine Headache) Rx Instructions: do not exceed 4 doses per 24 hrs alendronate 10 mg Tablet 10 mg PO DAILY temazepam [Restoril] 15 mg Capsule 15 mg PO BEDTIME hydrocodone-acetaminophen 10-325 mg Tablet See Rx Instructions .ROUTE .COMPLEX PRN (Reason: Pain) Qty: 20 0RF Rx Instructions: 1 - 2 tab orally every 4-6 hours as needed for pain *max of six per day, hold within 4HRS of planned sleep for 30 days* Discontinued propranolol 40 mg tablet 40 mg PO BID meloxicam 7.5 mg tablet 7.5 mg PO BID Discharge Orders: Discharge Order (Routine); Ordered 01/16/22 Ordered By: Leroy Manriquez Referrals: Cristian Stoll DO [Physician] - 01/22/22 2:15 pm (Follow up appointment ,Post op surgery: January - 2:15 pm appointment.) Discharge Diet: Advance as tolerated Discharge Activity: Limit activity as instructed Patient Instructions: Constipation (DC), Anemia (DC), Chronic Back Pain (DC), Fall Prevention (DC), Lumbar Spinal Fusion (DC), Opioid Safety, Post Anesthesia Care Activity Restrictions/Additional Instructions: Thank you for choosing [facility] for your care! The following is a list of instructions, from your provider, to follow upon your discharge to ensure you have the optimal recovery from your recent injury or surgery. Follow-up care is a renteria part of your treatment and safety. Be sure to make and go to all appointments and call your doctor if you are having problems. If you do not already have a follow-up appointment made, call Dr. Stoll's] office in the next 1-3 days to make follow up appointment for 1 weeks at [phone]. It is also a good idea to know your test results and keep a list of the medicines you take. Medications will be prescribed for you at your provider's discretion. These medications are to be used as instructed; if they are taken more often that prescribed they will not be refilled early and in most cases will not be refilled at all. > When a refill is needed, you should contact [facility] 2-3 business days before your prescription runs out. Medications will NOT be refilled by information assurance specialist providers after hours! > Many pain medications contain Tylenol (Acetaminophen). Do not consume more than 4,000 mg of Tylenol per day in total with any combination of medications. > Pain medications can cause constipation. Please use an over the counter stool softener as directed, while taking pain medications. Consult your local pharmacist with questions or recommendations on stool softeners. If constipation persists, contact our office or your primary care provider. > While under our care, you are not to receive pain medications or other controlled substances from any other provider unless our office is notified and approves. Any attempts to do so will result in refusal to prescribe any further pain medications and possible dismissal from our practice. ? Walking is essential for the healing process after surgery. We would like you to slowly advance your walking. This should be done on relatively flat clear ground (inside or out) or can be done on a treadmill. Remember this goal does not have to happen all at once, slowly increase your distance and duration. This can be broken into more more than one walk per day as tolerated. Patients who walk as directed after surgery rarely require Physical Therapy. In the unlikely event this issue arises your provider will direct hospital staff to make the appropriate arrangements. ? No lifting over 5 pounds {a gallon of milk) or bending/twisting until further notice. Each of these activities places an unnecessary amount of stress onto the body and can impede the delicate healing process. > Instead of bending at the waist, keep your back straight and bend at the knees. > Instead of twisting your torso, keep your back straight and turn your entire body with your feet. ? You may sleep in any position which makes you comfortable. Many patients find comfort sleeping in a reclining chair. It is not abnormal to have difficulty sleeping for the first several weeks following your surgery. We recommend trying Benadry! or Tylenol PM as directed to help with your sleeping difficulties. Both medications are over the counter and available without prescription. ? NO SMOKING!!! Smoking dramatically increases the probability of developing postoperative wound infections. ? Common complaints after lumbar and/or thoracic spine surgery include, but are not limited to: numbness and/or tingling in the legs, pain around the incision and surrounding tissues, muscle spasms, or stiffness of the middle to low back. Contact our office if these symptoms persist or if an acute change occurs. ? No driving for the first 3-5days, and not while taking narcotics until seen at your follow-up appointment and cleared. There are no restrictions for riding on short trips, however if you take a longer trip, arrangements should be made to make regular stops to get out of the vehicle and stretch . ? Swelling is an unfortunate event that will take place with any surgery and is the primary source of your postoperative discomfort. While walking and regular approved activities helps control inflammation, there are additional steps you can take to minimize swelling. > Place ice over the surgical site and surrounding tissue for twenty minutes, followed by applying a low/medium heat (heating pad) for an additional twenty minutes every 1-2 hours as needed for painrelief. > You may use of over the counter anti-inflammatory medications (Ibuprofen, Motrin, Aleve, Advil, etc) as directed on the package label. These types of medicines will significantly reduce the amount of discomfort you experience after surgery from swelling. It should be noted that if you have and allergy to any of these medications, or a history of ulcers or kidney disease you should consult you primary care provider prior to starting these medications. Discharge Attestations Time Spent in Discharge Care*: less than 30 min Quality Metrics Clinical Quality Measures [ No reported AMI, CVA or VTE this stay] Coding Level of Care Code Acute Chg FW DC note Diagnoses Postoperative anemia D64.9 S/P spinal fusion Z98.1
== END 2022-01-16 10:45 | disposition home or self-care (01) | DRG 456 ==
LOC: ICU 17:13
PROVIDERS: Anesthesiology; Internal Medicine; Admitting Provider Orthopaedic Surgery; PCP Internal Medicine; Visit Provider Orthopaedic Surgery
PROC: 0RG7071 Fusion of 2 to 7 Thoracic Vertebral Joints with Autologous Tissue Substitute, Posterior Approach, Posterior Column, Open Approach (ICD-10-PCS; principal; 2022-01-12 10:55)
PROC: 0RG7071 Fusion of 2 to 7 Thoracic Vertebral Joints with Autologous Tissue Substitute, Posterior Approach, Posterior Column, Open Approach (ICD-10-PCS; CPT 22612; 2022-01-12 10:55)
DX: M48.062 Spinal stenosis, lumbar region with neurogenic claudication (principal); T81.19XA Other postprocedural shock, initial encounter; D62 Acute posthemorrhagic anemia; N39.0 Urinary tract infection, site not specified; M47.816 Spondylosis without myelopathy or radiculopathy, lumbar region; M41.86 Other forms of scoliosis, lumbar region; Z79.891 Long term (current) use of opiate analgesic; F41.8 Other specified anxiety disorders; I10 Essential (primary) hypertension; E03.9 Hypothyroidism, unspecified; I95.81 Postprocedural hypotension; R00.0 Tachycardia, unspecified
CPT/HCPCS: 36415; 36416; 36430; 36592; 51702; 71045; 71275; 72100; 74174; 80048; 80053; 81001; 82533; 82728; 82962; 83540; 83550; 83605; 83735; 84145; 85014; 85018; 85025; 86850; 86900; 86920; 86927; 87040; 87077; 87086; 87186; 93005; 93306; 97110; 97116; 97162; 97530; C1713; J0610; J0696; J1100; J1170; J1580; J1644; J1720; J2250; J2270; J2370; J2405; J2704; J3010; J3370; J3490; J7030; P9012; P9016; P9040; P9041; Q0144; Q9967

== ENCOUNTER → 2022-01-27 11:00 | Outpatient (BNVA) | payer MEDICARE, SELFPAY | PROVIDERS: PCP Internal Medicine; Visit Provider Orthopaedic Surgery | DX: Z47.89 Encounter for other orthopedic aftercare (principal); Z98.1 Arthrodesis status | CPT/HCPCS: 99024 ==

== ENCOUNTER → 2022-02-03 14:36 | Outpatient (BNVA) | payer MEDICARE, SELFPAY | PROVIDERS: PCP Internal Medicine; Visit Provider Orthopaedic Surgery | DX: Z47.89 Encounter for other orthopedic aftercare (principal); Z98.1 Arthrodesis status | CPT/HCPCS: 99024 ==

== ENCOUNTER → 2022-02-24 13:36 | Outpatient (BNVA) | payer MEDICARE, SELFPAY | PROVIDERS: PCP Internal Medicine; Visit Provider Orthopaedic Surgery | DX: Z47.89 Encounter for other orthopedic aftercare (principal); Z98.1 Arthrodesis status | CPT/HCPCS: 72100; 99024 ==

== ENCOUNTER → 2022-03-10 10:01 | Outpatient (BNVA) | payer MEDICARE, SELFPAY | PROVIDERS: PCP Internal Medicine; Visit Provider Physician Assistant | DX: M48.062 Spinal stenosis, lumbar region with neurogenic claudication (principal); M25.552 Pain in left hip; M25.512 Pain in left shoulder; M25.562 Pain in left knee; W19.XXXA Unspecified fall, initial encounter; Z98.1 Arthrodesis status | CPT/HCPCS: 72100; 73060; 73502; 73560; 73565; 99213; 99214 ==

== ENCOUNTER → 2022-04-07 13:41 | Outpatient (BNVA) | payer MEDICARE, SELFPAY | PROVIDERS: PCP Internal Medicine; Visit Provider Orthopaedic Surgery | DX: Z47.89 Encounter for other orthopedic aftercare (principal); Z98.1 Arthrodesis status | CPT/HCPCS: 72100; 99024 ==

== ENCOUNTER → 2022-05-14 14:02 | Outpatient (BNVA) | payer MEDICARE, SELFPAY | PROVIDERS: PCP Internal Medicine; Visit Provider Physician Assistant | DX: Z47.89 Encounter for other orthopedic aftercare (principal); Z98.1 Arthrodesis status; M43.9 Deforming dorsopathy, unspecified | CPT/HCPCS: 72072; 72100; 99213 ==

== ENCOUNTER 2022-08-26 13:28 | Outpatient (CLI) | payer MEDICARE, SELFPAY ==
--- NOTE | 2022-08-26 13:51 | USCV_ITS ---
Niki Agosto Age: 62 Gender: F : 1960 Exam Date: 08/26/2022 14:13 Ordering Phys: Charity Salazar MD Technologist: CT Exam Location[place] [facility] [place] Indication: absent pulses Risk Factors: Previous Vascular Surgery: RIGHT LEFT BP: 142.0 / 81.00 BP: 147.0/ 85.00 0 0 Waveform Velocity (cm/s) Velocity (cm/s) Waveform Triphasic 108.0 Iliac Prox 93.3 Triphasic Triphasic 89.6 Iliac Mid 85.6 Triphasic Triphasic 100.2 Iliac Distal 91.2 Triphasic Triphasic 73.0 CASING MIXER 87.1 Triphasic Triphasic 94.1 SFA Prox 81.7 Triphasic Triphasic 64.8 SFA Mid 68.5 Triphasic Triphasic SFA Dist Triphasic 63.5 56.6 Triphasic 61.2 POP 61.8 Triphasic Triphasic 47.2 MEAT SOAKER 86.3 Triphasic Triphasic 75.6 DPA 89.5 Triphasic 1.0 СЕРГЕЙ 1.0 FINDINGS Intimal thickening and minimal plaques iliac and femoral arteries bilaterally. Normal arterial Doppler waveforms and Doppler flow velocities bilaterally Resting СЕРГЕЙ 1.0 bilaterally CONCLUSIONS 1. Normal resting ABIs of 1.0 bilaterally 2. Intimal thickening and minimal plaques in the iliac and femoral arteries bilaterally Features suggesting no significant artery stenosis, bilaterally, based on the above findings Dr Nerissa Hancock MD [facility] (Electronically Signed) Final Date: 26 August 2022 21:56 S
== END 2022-08-26 13:29 | disposition home or self-care (01) ==
PROVIDERS: PCP Internal Medicine; Visit Provider Internal Medicine
DX: R09.89 Other specified symptoms and signs involving the circulatory and respiratory systems (principal)
CPT/HCPCS: 93925

== ENCOUNTER → 2022-08-27 14:16 | Outpatient (BNVA) | payer MEDICARE, SELFPAY | PROVIDERS: PCP Internal Medicine; Visit Provider Physician Assistant | DX: M48.062 Spinal stenosis, lumbar region with neurogenic claudication (principal); M43.25 Fusion of spine, thoracolumbar region; Z98.1 Arthrodesis status | CPT/HCPCS: 72100; 72170; 99213 ==

== ENCOUNTER 2022-09-15 06:00 | Outpatient (RCR) | payer MEDICARE, SELFPAY | END 2022-10-11 23:59 | disposition home or self-care (01) | LOC: SPT 06:00 | PROVIDERS: Visit Provider Physician Assistant | DX: M54.50 Low back pain, unspecified (principal); M25.552 Pain in left hip | CPT/HCPCS: 97113; 97161 ==

== ENCOUNTER 2022-10-11 05:38 | Emergency (ER) | payer MEDICARE, SELFPAY ==
[2022-10-11 05:39] VITALS: BP 150/91; PULSE 61; RESP 18; TEMP 36.6; O2SAT 100; BMI 26.6
--- NOTE | 2022-10-11 05:53 | XRR_ITS ---
PROCEDURE INFORMATION: Exam: XR Chest Exam date and time: 10/11/2022 6:04 AM Age: 62 years old Clinical indication: Injury or trauma; Fall; Blunt trauma (contusions or hematomas); Prior surgery; Surgery type: Back; Additional info: Fall, weakness TECHNIQUE: Imaging protocol: Radiologic exam of the chest. Views: 1 view. COMPARISON: CR XR chest 1V portable [id number] 01/13/2022 8:20 AM FINDINGS: Lungs: Strandy opacity seen in the left lower hemithorax may represent atelectasis although left basilar infiltrate cannot be entirely excluded. Pleural spaces: Unremarkable. No pleural effusion. No pneumothorax. Heart/Mediastinum: There is stable prominence of the cardiac silhouette. Stable uncoiling of the thoracic aorta is seen. Bones/joints: Pedicle screws and posterior rods extend from the lower thoracic spine caudally. Other findings: The patient is rotated somewhat to the right. XR/XR chest 1V portable [id number] IMPRESSION: 1. Strandy opacities seen in the left lower hemithorax may represent atelectasis. Left basilar pneumonitis cannot be entirely excluded. 2. Stable mild cardiomegaly and uncoiling of the thoracic aorta.
--- NOTE | 2022-10-11 05:53 | CTR_ITS ---
PROCEDURE INFORMATION: Exam: CT Head Without Contrast Exam date and time: 10/11/2022 5:58 AM Age: 62 years old Clinical indication: Injury or trauma; Fall; Blunt trauma (contusions or hematomas); Additional info: Fall forehead injury TECHNIQUE: Imaging protocol: Computed tomography of the head without contrast. Radiation optimization: All CT scans at this facility use at least one of these dose optimization techniques: automated exposure control; mA and/or kV adjustment per patient size (includes targeted exams where dose is matched to clinical indication); or iterative reconstruction. REPORTING DATA: Count of CT and Cardiac NM exams in prior 12 months: This patient has received 2 known CTs and 0 known cardiac nuclear medicine studies in the 12 months prior to the current study. COMPARISON: CT head wo con* [id number] 12/14/2021 8:51 PM RADIATION DOSE METRICS: Total DLP (mGy-cm): 1270.94 FINDINGS: Brain: Focal hypoattenuation seen within the basal ganglia the left may represent prominent perivascular space versus a chronic lacunar infarct.. This was present 12/14/2021. Punctate hypoattenuation seen in the right basal ganglia likely representing chronic lacunar infarctions. Cerebral ventricles: No ventriculomegaly. Paranasal sinuses: Visualized sinuses are unremarkable. No fluid levels. Mastoid air cells: Visualized mastoid air cells are well aerated. Bones/joints: Unremarkable. No acute fracture. Soft tissues: There is soft tissue swelling and hematoma formation seen within the right frontal scalp. CT/CT head wo con* [id number] IMPRESSION: There are no acute intracranial findings. Stable head CT compared with 12/14/2021.
--- NOTE | 2022-10-11 05:55 | W.ED.FALL ---
Documented by User: Americo Denton DO 10/11/22 17:09 HPI - Fall General: Chief Complaint: Fall Stated Complaint: FALL Time Seen by Provider: 10/11/22 05:42 Source: patient History of Present Illness: 62-year-old female with a history of 2 lumbar surgeries. She says that she let her dogs out around 3 AM. She does not necessarily know what happened, but states I may have become disoriented . She fell on concrete, striking her forehead. She laid on the concrete for around 2-1/2 hours. She was unable to get up. She was found by her neighbor. She is awake, alert, and oriented currently. She is answering questions appropriately. She complains of head pain, and her chronic back pain otherwise. She denies recent illness. She notes that she has not fallen significantly since her last back surgery back in January. She is on multiple medications for pain, which she says she has not taken since her lifetime dose last night. MD complaint: fall Onset (ago): hour(s) Fall from: standing Fall witnessed: no Place fall occurred: home Loss of consciousness: Unsure Prolonged down time: yes Symptoms prior to fall: other Context: tripped/slipped Location of injury: head and face Quality: throbbing Associated symptoms-after fall: Reports headache(s); Denies abdominal pain, chest pain, confusion or short of breath Review of Systems Const: Denies: fever(s) Eyes: Denies: change in vision ENMT: Denies: throat pain Card: Denies: chest pain Resp: Denies: dyspnea GI: Denies: abdominal pain Neuro: Reports: headache(s); Denies: confusion [facility] ED PFSH: Medical History Altered mental status Anxiety and depression Currently on Cymbalta managed by her primary care provider. At risk for polypharmacy Chronic hypertension Diagnosed at the age of 14 and controlled on medication managed by primary care provider. Chronic low back pain without sciatica Currently on hydrocodone and baclofen managed by the pain clinic Hypothyroid Currently on levothyroxine managed by PMD No pertinent past medical history Denies: hypertension, diabetes, heart, lung, liver, kidney, thyroid, genital herpes, bleeding problems, or clotting problems. her primary care provider is Dr. Salazar Surgical History History of ankle surgery 2007--LEFT x3. In [place] History of back surgery 10/2020---jef placed in back History of dental surgery tooth extraction Hx of section 03/26/89 S/P breast biopsy 2000-left breast-benign Family History Mother Family history of thyroid problem Thyroid condition Diabetes Hypertension Father Brain aneurysm Denies family history of Colon cancer Ovarian cancer DVT (deep venous thrombosis) Heart disease Breast cancer Suicide Pulmonary embolism Uterine cancer Social History Smoking and tobacco status: never smoked Substance/Drug Use: never Physical Exam Const: GENERAL APPEARANCE: cooperative and frail appearing HENMT: COMMON NORMALS: normocephalic and Normal external nose present HEAD & SCALP: normocephalic FACE & SINUS: normal facial exam, sinuses nontender, ecchymosis (Right forehead), edema (Right forehead) and laceration (Right forehead small V shaped 1.5 cm soft tissue swelling surrounding) NOSE: Normal external nose present THROAT: posterior oropharynx normal Eye: COMMON NORMALS: Equal, round and reactive pupils present and EOMs intact bilaterally PUPIL: Yes Equal, round and reactive pupils present Neck/C-Spine: GENERAL: Yes trachea midline and No tender Resp: COMMON NORMALS: normal respiratory effort, No use of accessory muscles and clear to auscultation bilaterally AUSCULTATION: clear to auscultation bilaterally GI: COMMON NORMALS: Normal to inspection, nondistended, normoactive bowel sounds present and non-tender PALPATION: No Tenderness to palpation present (GI) : COMMON NORMALS: Yes no CVA tenderness BLADDER/KIDNEY EXAM: Yes no CVA tenderness Back/Pelvis: COMMON NORMALS: no CVA tenderness Neuro: BHARGAV COMA SCALE: document GCS findings [place] coma scale eye opening: Spontaneous Bhargav coma scale verbal response: Orientated Bhargav coma scale motor response: Obey commands Bhargav coma scale total score: 15 Psych: COMMON NORMALS: mental status grossly normal and cooperative ATTITUDE: Yes calm Course Vital Signs: Vital signs: Vital Signs Temperature 97.9 F 10/11/22 05:39 Pulse Rate 70 10/11/22 12:21 Respiratory Rate 12 10/11/22 12:21 Blood Pressure 142/89 10/11/22 12:21 Pulse Oximetry 98 10/11/22 12:21 Oxygen Delivery Me thod Room Air 10/11/22 06:30 MDM - Fall Medical Decision Making Patient with significant forehead contusion, and small laceration. Cause of fall is likely mechanical but unknown at this point. Risk of rhabdomyolysis with lying on concrete floor for over 2 hours. Laboratories pending. Head CT is pending. She will be checked out to the oncoming physician at shift change Lab Data 10/11/22 05:29 10/11/22 05:29 Radiology Impressions Chest X-Ray 10/11/22 05:53 IMPRESSION: 1. Strandy opacities seen in the left lower hemithorax may represent atelectasis. Left basilar pneumonitis cannot be entirely excluded. 2. Stable mild cardiomegaly and uncoiling of the thoracic aorta. Head CT 10/11/22 05:53 IMPRESSION: There are no acute intracranial findings. Stable head CT compared with 12/14/2021. Laboratory Results WBC 6.1 10^3/uL (4.0-10.0) 10/11/22 05:29 RBC 4.50 10^6/uL (4.1-5.3) 10/11/22 05:29 Hgb 13.5 g/dL (11.5-15.3) 10/11/22 05:29 Hct 43.8 % (37.0-47.0) 10/11/22 05:29 MCV 97.3 fl (81-99) 10/11/22 05:29 MCH 30.0 pg (28.0-34.0) 10/11/22 05:29 MCHC 30.8 g/dL (30.0-36.0) 10/11/22 05:29 RDW 13.8 % (12.1-15.1) 10/11/22 05:29 Plt Count 214 10^3/cmm (130-400) 10/11/22 05:29 MPV 9.6 fL (7.4-10.4) 10/11/22 05:29 Neut % (Auto) 56.5 % 10/11/22 05:29 Lymph % (Auto) 32.8 % 10/11/22 05:29 [place] % (Auto) 7.4 % 10/11/22 05:29 Eos % (Auto) 2.0 % 10/11/22 05:29 Baso % (Auto) 0.8 % 10/11/22 05:29 Neut # (Auto) 3.43 10^3/uL (1.8-7.7) 10/11/22 05:29 Lymph # (Auto) 2.0 10^3/uL (0.8-4.8) 10/11/22 05:29 [place] # (Auto) 0.5 10^3/uL (0.2-0.9) 10/11/22 05:29 Eos # (Auto) 0.1 10^3/uL (0.0-0.8) 10/11/22 05:29 Baso # (Auto) 0.1 10^3/uL (0.0-0.1) 10/11/22 05:29 Nucleated RBC % (auto) 0 % 10/11/22 05:29 Nucleated RBCs # 0.0 /100WBC 10/11/22 05:29 Sodium 139 mmol/L (136-145) 10/11/22 05:29 Potassium 3.9 mmol/L (3.5-5.1) 10/11/22 05:29 Chloride 102 mmol/L (98-107) 10/11/22 05:29 Carbon Dioxide 24 mmol/L (22-29) 10/11/22 05:29 Anion Gap 16.9 (5-19) 10/11/22 05:29 BUN 15 mg/dL (8-23) 10/11/22 05:29 Creatinine 0.7 mg/dL (0.5-0.9) 10/11/22 05:29 GFR Calculation 84.2 mL/min (90-130) L 10/11/22 05:29 Glucose 109 mg/dL (65-115) 10/11/22 05:29 Calculated Osmolality 289 mOsm/kg (285-295) 10/11/22 05:29 Calcium 9.1 mg/dL (8.5-10.5) 10/11/22 05:29 Magnesium 2.1 mg/dL (1.7-2.3) 10/11/22 05:29 Total Bilirubin 0.2 mg/dL (0.15-1.2) 10/11/22 05:29 AST 23 U/L (0-32) 10/11/22 05:29 ALT 18 U/L (0-33) 10/11/22 05:29 Alkaline Phosphatase 111 U/L (35-105) H 10/11/22 05:29 Creatine Kinase 160 U/L (26-192) 10/11/22 05:29 Troponin T Baseline 22 ng/L (0-10) H 10/11/22 05:29 Troponin T 120 Minute 23.43 ng/L (0-10) H 10/11/22 07:36 Delta Troponin T 1.43 ABS# (0-10) 10/11/22 07:36 C-Reactive Protein 3.0 mg/L (0.0-4.9) 10/11/22 05:29 Total Protein 7.8 g/dL (6.6-8.7) 10/11/22 05:29 Albumin 4.3 g/dL (3.5-5.2) 10/11/22 05:29 Globulin 3.5 g/dL (1.3-4.6) 10/11/22 05:29 Urine Color Yellow (Yellow) 10/11/22 08:18 Urine Appearance Clear (CLEAR) 10/11/22 08:18 Urine pH 5 (5-7) 10/11/22 08:18 Ur Specific [place] 1.010 (1.005-1.030) 10/11/22 08:18 Urine Protein Neg (Negative) 10/11/22 08:18 Urine Glucose (UA) Norm (Normal) 10/11/22 08:18 Urine Ketones Negative (Negative) 10/11/22 08:18 Urine Blood Neg (Negative) 10/11/22 08:18 Urine Nitrate Negative (Negative) 10/11/22 08:18 Urine Bilirubin Neg (Negative) 10/11/22 08:18 Urine Urobilinogen Norm mg/dL (Negative) 10/11/22 08:18 Ur Leukocyte Esterase Negative (Negative) 10/11/22 08:18 Discharge Plan Discharge Patient Disposition: Home Clinical Impression: Concussion without loss of consciousness, Forehead contusion Condition: Stable Prescriptions: No Action oxybutynin chloride 5 mg tablet See Rx Instructions .ROUTE .COMPLEX Rx Instructions: 5 mg orally in morning; 10mg HS baclofen 20 mg tablet 20 mg PO QID PRN (Reason: spasms) 30 Days Qty: 120 1RF levothyroxine 50 mcg capsule 50 mcg PO QDAY topiramate 50 mg tablet 50 mg PO QPM verapamil 120 mg tablet 120 mg PO DAILY duloxetine [Cymbalta] 30 mg capsule,delayed release(DR/EC) 60 mg PO QDAY topiramate 25 mg tablet 25 mg PO DAILY gabapentin 300 mg capsule 300 mg PO TID hydrocodone-acetaminophen 10-325 mg tablet 1 tab PO Q4H PRN (Reason: Pain) 7 Days Qty: 42 0RF (DME) Bone Growth Stimulator E0748 See Rx Instructions .Route .MEDSUPPLY Qty: 1 0RF Rx Instructions: As directed oxybutynin chloride 10 mg tablet extended release 24hr 10 mg PO QPM sumatriptan succinate 50 mg Tablet 50 mg PO Q2H PRN (Reason: Migraine Headache) Rx Instructions: do not exceed 4 doses per 24 hrs alendronate 10 mg Tablet 10 mg PO DAILY temazepam [Restoril] 15 mg Capsule 15 mg PO BEDTIME Stool Softener-Laxative 8.6-50 mg Tablet 2 tab PO BID Qty: 20 0RF docusate sodium 100 mg Capsule 100 mg PO BID Qty: 60 0RF Discharge Orders: Discharge ED (Routine); Ordered 10/11/22 Ordered By: Champ Palma Patient Instructions: Concussion (ED), Scalp Contusion in Adults (ED), Opioid Safety, Pain Management Activity Restrictions/Additional Instructions: You were seen today after a fall. CT of your head was negative. Apply topical antibiotic ointment to the abrasion on the forehead. Follow-up with your primary care doctor return if you have further problems. Sign Out Sign Out Data: Patient Sign Out occurred on 10/11/22 at 06:41. Patient's care was discussed, and care was transferred from to Champ Palma DO. Coding Level of Care Code ED Corduroy Brusher Operator for Chg Fwd Documented by User: Champ Palma DO 10/11/22 13:14 HPI - Fall General: Chief Complaint: Fall Stated Complaint: FALL Time Seen by Provider: 10/11/22 05:42 PFSH ED PFSH: Medical History Altered mental status Anxiety and depression Currently on Cymbalta managed by her primary care provider. At risk for polypharmacy Chronic hypertension Diagnosed at the age of 14 and controlled on medication managed by primary care provider. Chronic low back pain without sciatica Currently on hydrocodone and baclofen managed by the pain clinic Hypothyroid Currently on levothyroxine managed by PMD No pertinent past medical history Denies: hypertension, diabetes, heart, lung, liver, kidney, thyroid, genital herpes, bleeding problems, or clotting problems. her primary care provider is Dr. Salazar Surgical History History of ankle surgery 2006--LEFT x3. In [place] History of back surgery 10/2020---jef placed in back History of dental surgery tooth extraction Hx of section 03/26/89 S/P breast biopsy 2000-left breast-benign Family History Mother Family history of thyroid problem Thyroid condition Diabetes Hypertension Father Brain aneurysm Denies family history of Colon cancer Ovarian cancer DVT (deep venous thrombosis) Heart disease Breast cancer Suicide Pulmonary embolism Uterine cancer Social History Smoking and tobacco status: never smoked Substance/Drug Use: never Physical Exam Neuro: BHARGAV COMA SCALE: document GCS findings [place] coma scale total score: 15 Course Vital Signs: Vital signs: Vital Signs Temperature 97.9 F 10/11/22 05:39 Pulse Rate 70 10/11/22 12:21 Respiratory Rate 12 10/11/22 12:21 Blood Pressure 142/89 10/11/22 12:21 Pulse Oximetry 98 10/11/22 12:21 Oxygen Delivery Me thod Room Air 10/11/22 06:30 MDM - Fall Medical Decision Making Patient with significant forehead contusion, and small laceration. Cause of fall is likely mechanical but unknown at this point. Risk of rhabdomyolysis with lying on concrete floor for over 2 hours. Laboratories pending. Head CT is pending. She will be checked out to the oncoming physician at shift change Care assumed from Dr. Denton at change of shift imaging negative. Reviewed the chart. Went in to see the patient she was sleeping very soundly. She was arousable very confused when she woke up made some rather odd statements. Contacted family members they states she has had this in the past when she is given various medications she responds very poorly to them gets easily disoriented. We waited a time and reexamined her at that time she was awake alert behaving appropriately with no significant abnormalities. She can recall the events. Dr. Denton had placed him Dermabond on the portion of the abrasion on the right side of her forehead the other areas or having some serous drainage this was cleaned off. Patient will be discharged home follow-up with her primary care doctor reviewed labs and imaging with the patient. Lab Data 10/11/22 05:29 10/11/22 05:29 Radiology Impressions Chest X-Ray 10/11/22 05:53 IMPRESSION: 1. Strandy opacities seen in the left lower hemithorax may represent atelectasis. Left basilar pneumonitis cannot be entirely excluded. 2. Stable mild cardiomegaly and uncoiling of the thoracic aorta. Head CT 10/11/22 05:53 IMPRESSION: There are no acute intracranial findings. Stable head CT compared with 12/14/2021. Laboratory Results WBC 6.1 10^3/uL (4.0-10.0) 10/11/22 05:29 RBC 4.50 10^6/uL (4.1-5.3) 10/11/22 05:29 Hgb 13.5 g/dL (11.5-15.3) 10/11/22 05:29 Hct 43.8 % (37.0-47.0) 10/11/22 05:29 MCV 97.3 fl (81-99) 10/11/22 05: MCH 30.0 pg (28.0-34.0) 10/11/22 05:29 MCHC 30.8 g/dL (30.0-36.0) 10/11/22 05:29 RDW 13.8 % (12.1-15.1) 10/11/22 05:29 Plt Count 214 10^3/cmm (130-400) 10/11/22 05:29 MPV 9.6 fL (7.4-10.4) 10/11/22 05:29 Neut % (Auto) 56.5 % 10/11/22 05:29 Lymph % (Auto) 32.8 % 10/11/22 05:29 [place] % (Auto) 7.4 % 10/11/22 05:29 Eos % (Auto) 2.0 % 10/11/22 05:29 Baso % (Auto) 0.8 % 10/11/22 05:29 Neut # (Auto) 3.43 10^3/uL (1.8-7.7) 10/11/22 05:29 Lymph # (Auto) 2.0 10^3/uL (0.8-4.8) 10/11/22 05:29 [place] # (Auto) 0.5 10^3/uL (0.2-0.9) 10/11/22 05:29 Eos # (Auto) 0.1 10^3/uL (0.0-0.8) 10/11/22 05:29 Baso # (Auto) 0.1 10^3/uL (0.0-0.1) 10/11/22 05:29 Nucleated RBC % (auto) 0 % 10/11/22 05:29 Nucleated RBCs # 0.0 /100WBC 10/11/22 05:29 Sodium 139 mmol/L (136-145) 10/11/22 05:29 Potassium 3.9 mmol/L (3.5-5.1) 10/11/22 05:29 Chloride 102 mmol/L (98-107) 10/11/22 05:29 Carbon Dioxide 24 mmol/L (22-29) 10/11/22 05:29 Anion Gap 16.9 (5-19) 10/11/22 05:29 BUN 15 mg/dL (8-23) 10/11/22 05:29 Creatinine 0.7 mg/dL (0.5-0.9) 10/11/22 05:29 GFR Calculation 84.2 mL/min (90-130) L 10/11/22 05:29 Glucose 109 mg/dL (65-115) 10/11/22 05:29 Calculated Osmolality 289 mOsm/kg (285-295) 10/11/22 05:29 Calcium 9.1 mg/dL (8.5-10.5) 10/11/22 05:29 Magnesium 2.1 mg/dL (1.7-2.3) 10/11/22 05:29 Total Bilirubin 0.2 mg/dL (0.15-1.2) 10/11/22 05:29 AST 23 U/L (0-32) 10/11/22 05:29 ALT 18 U/L (0-33) 10/11/22 05:29 Alkaline Phosphatase 111 U/L (35-105) H 10/11/22 05:29 Creatine Kinase 160 U/L (26-192) 10/11/22 05:29 Troponin T Baseline 22 ng/L (0-10) H 10/11/22 05:29 Troponin T 120 Minute 23.43 ng/L (0-10) H 10/11/22 07:36 Delta Troponin T 1.43 ABS# (0-10) 10/11/22 07:36 C-Reactive Protein 3.0 mg/L (0.0-4.9) 10/11/22 05:29 Total Protein 7.8 g/dL (6.6-8.7) 10/11/22 05:29 Albumin 4.3 g/dL (3.5-5.2) 10/11/22 05:29 Globulin 3.5 g/dL (1.3-4.6) 10/11/22 05:29 Urine Color Yellow (Yellow) 10/11/22 08:18 Urine Appearance Clear (CLEAR) 10/11/22 08:18 Urine pH 5 (5-7) 10/11/22 08:18 Ur Specific [place] 1.010 (1.005-1.030) 10/11/22 08:18 Urine Protein Neg (Negative) 10/11/22 08:18 Urine Glucose (UA) Norm (Normal) 10/11/22 08:18 Urine Ketones Negative (Negative) 10/11/22 08:18 Urine Blood Neg (Negative) 10/11/22 08:18 Urine Nitrate Negative (Negative) 10/11/22 08:18 Urine Bilirubin Neg (Negative) 10/11/22 08:18 Urine Urobilinogen Norm mg/dL (Negative) 10/11/22 08:18 Ur Leukocyte Esterase Negative (Negative) 10/11/22 08:18 Discharge Plan Discharge Patient Disposition: Home Clinical Impression: Concussion without loss of consciousness, Forehead contusion Condition: Stable Prescriptions: No Action oxybutynin chloride 5 mg tablet See Rx Instructions .ROUTE .COMPLEX Rx Instructions: 5 mg orally in morning; 10mg HS baclofen 20 mg tablet 20 mg PO QID PRN (Reason: spasms) 30 Days Qty: 120 1RF levothyroxine 50 mcg capsule 50 mcg PO QDAY topiramate 50 mg tablet 50 mg PO QPM verapamil 120 mg tablet 120 mg PO DAILY duloxetine [Cymbalta] 30 mg capsule,delayed release(DR/EC) 60 mg PO QDAY topiramate 25 mg tablet 25 mg PO DAILY gabapentin 300 mg capsule 300 mg PO TID hydrocodone-acetaminophen 10-325 mg tablet 1 tab PO Q4H PRN (Reason: Pain) 7 Days Qty: 42 0RF (DME) Bone Growth Stimulator E0748 See Rx Instructions .Route .MEDSUPPLY Qty: 1 0RF Rx Instructions: As directed oxybutynin chloride 10 mg tablet extended release 24hr 10 mg PO QPM sumatriptan succinate 50 mg Tablet 50 mg PO Q2H PRN (Reason: Migraine Headache) Rx Instructions: do not exceed 4 doses per 24 hrs alendronate 10 mg Tablet 10 mg PO DAILY temazepam [Restoril] 15 mg Capsule 15 mg PO BEDTIME Stool Softener-Laxative 8.6-50 mg Tablet 2 tab PO BID Qty: 20 0RF docusate sodium 100 mg Capsule 100 mg PO BID Qty: 60 0RF Discharge Orders: Discharge ED (Routine); Ordered 10/11/22 Ordered By: Champ Palma Patient Instructions: Concussion (ED), Scalp Contusion in Adults (ED), Opioid Safety, Pain Management Activity Restrictions/Additional Instructions: You were seen today after a fall. CT of your head was negative. Apply topical antibiotic ointment to the abrasion on the forehead. Follow-up with your primary care doctor return if you have further problems. Sign Out Sign Out Data: Patient Sign Out occurred on 10/11/22 at 06:41. Patient's care was discussed, and care was transferred from to Champ Palma DO. Coding Level of Care Code ED Corduroy Brusher Operator for Jade Gracia
[2022-10-11] MEDS: morphine 4 mg/mL SDV 1 mL IVP (05:59)
[2022-10-11] MEDS: ondansetron 2 mg/ML SDV 2 mL 4 MG IVP (05:59)
[2022-10-11] MEDS: sodium chloride 0.9% 1,000 ML 999 ML IV (06:00)
[2022-10-11 06:06] LABS: Basophils # 0.1 10^3/uL (0.0-0.1); Basophils % 0.8 %; Eosinophils # 0.1 10^3/uL (0.0-0.8); Hematocrit 43.8 % (37.0-47.0); Hemoglobin 13.5 g/dL (11.5-15.3); Lymphocytes % 32.8 %; Mean Corpuscular HGB Conc 30.8 g/dL (30.0-36.0); Mean Corpuscular Volume 97.3 fl (81-99); Mean Platelet Volume 9.6 fL (7.4-10.4); Monocytes # 0.5 10^3/uL (0.2-0.9); Monocytes % 7.4 %; Neutrophils # 3.43 10^3/uL (1.8-7.7); Neutrophils % 56.5 %; Nucleated Red Blood Cells % 0 %; Platelet Count 214 10^3/cmm (130-400); Red Cell Distribution Width 13.8 % (12.1-15.1); White Blood Count 6.1 10^3/uL (4.0-10.0)
[2022-10-11 06:14] VITALS: BP 150/91; RESP 16; O2SAT 98
[2022-10-11 06:29] LABS: Troponin(5th) Baseline 22 ng/L (0-10)
[2022-10-11 06:30] VITALS: BP 150/91; PULSE 64; O2SAT 100
[2022-10-11 06:44] LABS: Alanine Aminotransferase 18 U/L (0-33); Albumin Level 4.3 g/dL (3.5-5.2); Alkaline Phosphatase 111 U/L (35-105); Aspartate Amino Transferase 23 U/L (0-32); Blood Urea Nitrogen 15 mg/dL (8-23); Calcium 9.1 mg/dL (8.5-10.5); Carbon Dioxide 24 mmol/L (22-29); Chloride 102 mmol/L (98-107); Creatine Phosphokinase 160 U/L (26-192); Globulin 3.5 g/dL (1.3-4.6); Glomerular Filtration Rate 84.2 mL/min (90-130); Glucose 109 mg/dL (65-115); Magnesium 2.1 mg/dL (1.7-2.3); Osmolality Calculated 289 mOsm/kg (285-295); Sodium 139 mmol/L (136-145); Total Bilirubin 0.2 mg/dL (0.15-1.2); Total Protein 7.8 g/dL (6.6-8.7)
[2022-10-11 07:03] LABS: Anion Gap 16.9 (5-19); Potassium 3.9 mmol/L (3.5-5.1)
--- NOTE | 2022-10-11 07:47 | ECG_ITS ---
[facility] Test Date: 2022-10-11 Pat Name: Niki Agosto Department: Room: Gender: Female Looper Fixer: : 1960 Requested By: Americo Anthony Order Number: [id number] Kirti MD: Nerissa Hancock M.D. Measurements Intervals [place] Rate: 70 P: 51 NV: 169 QRS: -4 QRSD: 106 T: 45 QT: 425 QTc: 460 Interpretive Statements SINUS RHYTHM Compared to ECG 10/11/2022 06:18:37 Myocardial infarct finding no longer present Electronically Signed On 10-11-2022 22:34:48 CDT by Nerissa Hancock M.D. [id number]
[2022-10-11 08:26] LABS: Add Urine Microscopic? NO; Charge for UA Resulting for Rev
[2022-10-11 08:33] LABS: Bilirubin Urine Neg (Negative); Blood Urine Neg (Negative); Glucose Urine UA Norm (Normal); Ketones Urine Negative (Negative); Nitrate Urine Negative (Negative); Protein Urine Neg (Negative); Urine Appearance Clear (CLEAR); Urine Color Yellow (Yellow); pH Urine 5 (5-7)
[2022-10-11 08:34] LABS: Leukocyte Esterase Urine Negative (Negative); Urobilinogen Urine Norm (Negative)
[2022-10-11 08:48] LABS: Troponin 5 2HR 23.43 ng/L (0-10); Troponin 5 2HR Delta 1.43 ABS# (0-10)
--- NOTE | 2022-10-11 10:53 | PC.NURSE ---
PER DR. FLEIPE ORDER PT AMB 50 FEET WITH WALKER PT HAS A STEADY GAIT. HEAD WOUND CLEANSED WITH SALINE.
--- NOTE | 2022-10-11 11:54 | ECG_ITS ---
[facility] Test Date: 2022-10-11 Pat Name: Niki Agosto Department: Room: Gender: Female Conveyor Feeder Offbearer: : 1960 Requested By: Americo Anthony Order Number: [id number] Kirti MD: Nerissa Hancock M.D. Measurements Intervals [place] Rate: 61 P: 29 [place]: 172 QRS: -17 QRSD: 101 T: 9 QT: 427 QTc: 432 Interpretive Statements SINUS RHYTHM LOW QRS VOLTAGE IN PRECORDIAL LEADS [QRS DEFLECTION < 1.0 mV IN CHEST LEADS] POSSIBLE ANTERIOR MYOCARDIAL INFARCTION , OF INDETERMINATE AGE [30 ms Q WAVE IN V3/V4, OR R < 0.2 mV IN V4] Compared to ECG 01/14/2022 13:57:31 Low QRS voltage now present Sinus tachycardia no longer present Myocardial infarct finding still present Electronically Signed On 10-11-2022 22:34:39 CDT by Nerissa Hancock M.D. [id number]
[2022-10-11 12:21] VITALS: BP 142/89; PULSE 70; RESP 12; O2SAT 98
--- NOTE | 2022-10-14 14:18 | DCPLANNER ---
wholesale manager called patient due to no primary care physician - no answer at this time
== END 2022-10-11 11:15 | disposition home or self-care (01) ==
PROVIDERS: Emergency Medicine; Emergency Provider Family Medicine
DX: S06.0X0A Concussion without loss of consciousness, initial encounter (principal); S00.83XA Contusion of other part of head, initial encounter; S01.81XA Laceration without foreign body of other part of head, initial encounter; I10 Essential (primary) hypertension; W18.39XA Other fall on same level, initial encounter
CPT/HCPCS: 36415; 70450; 71045; 80053; 81003; 82550; 83735; 84484; 85025; 86140; 93005; 96374; 96375; 99285; J2270; J2405; J7030

== ENCOUNTER 2022-10-12 06:00 | Outpatient (RCR) | payer MEDICARE, SELFPAY | END 2022-11-11 23:59 | disposition home or self-care (01) | LOC: SPT 06:00 | PROVIDERS: Visit Provider Physician Assistant | DX: M54.50 Low back pain, unspecified (principal); M25.552 Pain in left hip | CPT/HCPCS: 97113 ==

== ENCOUNTER 2022-11-05 13:26 | Outpatient (CLI) | payer MEDICARE, SELFPAY ==
--- NOTE | 2022-11-05 13:54 | MM_ITS ---
WS: [id number] BILATERAL 3D TOMOSYNTHESIS DIGITAL SCREENING MAMMOGRAPHY WITH CAD CLINICAL INFORMATION: SCREENING HISTORY: Screening mammogram. No current complaints. COMPARISON: 2020 TECHNIQUE: Bilateral CC and MLO views. FINDINGS: Scattered fibroglandular densities bilaterally. No suspicious focal mass, asymmetry, calcifications, or architectural distortion. No evidence of malignancy. Incidental punctate calcifications. Biopsy cl ip LEFT breast. MM/[place] [id number] IMPRESSION: BI-RADS: 2-Benign FOLLOW UP: 1 Year Follow-up Recommend return to annual screening mammography.
--- NOTE | 2022-11-05 13:54 | XRR_ITS ---
PROCEDURE INFORMATION: Exam: XR Chest Exam date and time: 11/05/2022 1:58 PM Age: 62 years old Clinical indication: Pain; Angina pectoris; Prior surgery; Surgery date: 6+ months; Surgery type: Spine; Additional info: Chest pain TECHNIQUE: Imaging protocol: Radiologic exam of the chest. Views: 2 views. COMPARISON: CR (CHEST, ) 10/11/2022 6:04 AM FINDINGS: Lungs: Low lung volumes seen. The lungs are clear Pleural spaces: Unremarkable. No pleural effusion. No pneumothorax. Heart/Mediastinum: Unremarkable. No cardiomegaly. Bones/joints: Metallic pedicle screws and rods are seen in the dorsolumbar spine. This finding is stable since prior XR/XR chest 2V* [id number] IMPRESSION: No acute findings. Orthopedic hardware dorsolumbar spine
== END 2022-11-05 13:27 | disposition home or self-care (01) ==
LOC: RAD 13:32
PROVIDERS: PCP Internal Medicine; Visit Provider Internal Medicine
DX: Z12.31 Encounter for screening mammogram for malignant neoplasm of breast (principal); R07.9 Chest pain, unspecified; Z98.890 Other specified postprocedural states
CPT/HCPCS: 71046; 77063; 77067

== ENCOUNTER → 2023-01-28 14:55 | Outpatient (BNVA) | payer MEDICARE, SELFPAY | PROVIDERS: PCP Internal Medicine; Visit Provider Orthopaedic Surgery | DX: M48.062 Spinal stenosis, lumbar region with neurogenic claudication (principal); Z98.1 Arthrodesis status | CPT/HCPCS: 72100; 99214 ==

== ENCOUNTER 2023-04-02 13:50 | Outpatient (RCR) | payer OTHER, SELFPAY | END 2023-04-13 23:59 | disposition home or self-care (01) | LOC: SPT 13:50 | PROVIDERS: Visit Provider Orthopaedic Surgery | DX: M48.062 Spinal stenosis, lumbar region with neurogenic claudication (principal) | CPT/HCPCS: 97162 ==

== ENCOUNTER 2023-04-14 06:00 | Outpatient (RCR) | payer OTHER, SELFPAY | END 2023-05-13 23:59 | disposition home or self-care (01) | LOC: SPT 06:00 | PROVIDERS: Visit Provider Orthopaedic Surgery | DX: M48.062 Spinal stenosis, lumbar region with neurogenic claudication (principal) | CPT/HCPCS: 97110; 97530; G0283 ==

== ENCOUNTER → 2023-04-15 14:37 | Outpatient (BNVA) | payer OTHER, SELFPAY | PROVIDERS: Visit Provider Orthopaedic Surgery | DX: G89.29 Other chronic pain (principal); M48.062 Spinal stenosis, lumbar region with neurogenic claudication | CPT/HCPCS: 72100 ==

== ENCOUNTER → 2023-06-01 13:28 | Outpatient (BNVA) | payer OTHER, SELFPAY | PROVIDERS: PCP Internal Medicine; Visit Provider Orthopaedic Surgery | DX: M48.062 Spinal stenosis, lumbar region with neurogenic claudication (principal); Z47.89 Encounter for other orthopedic aftercare; Z98.1 Arthrodesis status; M41.56 Other secondary scoliosis, lumbar region | CPT/HCPCS: 72100 ==

== ENCOUNTER → 2023-07-26 12:14 | Outpatient (BNVA) | payer MEDICARE, SELFPAY | PROVIDERS: PCP Internal Medicine; Visit Provider Family Medicine | DX: Z01.818 Encounter for other preprocedural examination (principal); Z79.899 Other long term (current) drug therapy | CPT/HCPCS: 80053; 81003; 85025; 87086 ==

== ENCOUNTER 2023-07-28 16:40 | Inpatient (IN) | payer MEDICARE, SELFPAY ==
[2023-07-28] VITALS (17 sets, daily range): BP systolic 103–165; BP diastolic 64–117; PULSE 66–92; RESP 16–19; TEMP 36.5–37.1; O2SAT 94–100; BMI 32.8
[2023-07-28] MEDS: sodium chloride 0.9% 1,000 ML 30 ML IV (11:48)
[2023-07-28] MEDS: HYDROmorphone 1 mg/mL INJ 1 mL 0.5 MG IVP (11:53)
--- NOTE | 2023-07-28 13:05 | W.PM.OPSUD ---
Surgery/Procedure H&P Update DATE OF PROCEDURE: July 28, 2023 DATE H&P PERFORMED: 07/26/23 H&P UPDATE INFORMATION: I have reviewed H&P completed within last 30 days, I have examined patient prior to procedure and No changes to prior documentation PREOP DIAGNOSIS: painful hardware PLANNED PROCEDURE: Operation Date: 07/28/23 12:25 Proposed Procedures p Hardware Removal Lumbar/ revision surgery pelvis(Not Applicable) - Cristian Stoll DO
--- NOTE | 2023-07-28 13:13 | ANES.PREANE2 ---
Pre-Anesthetic Assessment Height/Weight: Height 1.7 m Weight 95.254 kg Temp Pulse Resp BP Pulse Ox O2 Del Method 98.8 F 79 18 125/77 96 Room Air 07/28/23 12:11 07/28/23 12:11 07/28/23 12:11 07/28/23 12:11 07/28/23 12:11 07/28/23 12:11 Preop Diagnosis: painful hardware Operation Date: 07/28/23 12:25 Proposed Procedures p Hardware Removal Lumbar/ revision surgery pelvis(Not Applicable) - Cristian Stoll, DO Familial anesthetic complications: none Was Beta Sandie taken within 24 hours: Yes Was Clonidine taken within 24 hours: N/A Last intake: Intake Last Liquid Date 07/27/23 Last Liquid Time 21:00 Last Solid Date 07/27/23 Last Solid Time 21:00 Social No alcohol and No tobacco Exam alert, oriented x 3, clear to auscultation bilaterally and regular rate & rhythm Airway Submandibular: within normal limits Cervical ROM: within normal limits Mallampati: Class II CV/HEM Anemia, Arrythmia and Hypertension GI Gastroesophageal Reflux Disease Metabolic Morbid Obesity and Thyroid Disease [facility] [place] Lower Back Pain and Osteoarthritis/DJD Neuropsych Anxiety and Depression Anesthetic Plan ASA status: 3 Anesthesia: General Medications/Allergies Home Medications Medication Instructions Recorded Confirmed Last Taken Type levothyroxine 50 mcg capsule 50 mcg PO QDAY 07/04/19 07/27/23 07/27/23 History baclofen 20 mg tablet 20 mg PO QID PRN spasms 30 days 05/30/20 07/27/23 01/12/22 09:15 Rx #120 tabs duloxetine 30 mg capsule,delayed 60 mg PO QDAY 09/10/20 07/27/23 07/28/23 History release (Cymbalta) oxybutynin chloride 5 mg tablet See Rx Instructions .Route .COMPLEX 05/23/21 07/28/23 07/28/23 History oxybutynin chloride 10 mg 10 mg PO QPM 10/06/21 07/26/23 01/11/22 History tablet,extended release 24 hr sumatriptan succinate 50 mg tablet 50 mg PO Q2H PRN Migraine Headache 12/16/21 07/26/23 3 Days Ago History ~01/09/22 alendronate 10 mg tablet 10 mg PO Q7D 01/09/22 07/27/23 07/24/23 History temazepam 15 mg capsule (Restoril) 15 mg PO BEDTIME 01/09/22 07/26/23 01/11/22 History Bone Growth Stimulator E0748 #1 ea 01/12/22 06/01/23 Unknown Rx celecoxib 200 mg capsule 200 mg PO DAILY 07/26/23 07/27/23 07/26/23 History doxylamine succinate 25 mg tablet 25 mg PO Q6H PRN Insomnia 07/26/23 07/27/23 Unknown History hydrocodone 7.5 mg-acetaminophen 1 tab PO Q4H PRN Pain 07/26/23 07/27/23 07/28/23 History 325 mg tablet lisinopril 10 mg tablet 10 mg PO DAILY 07/26/23 07/27/23 07/27/23 History omeprazole 40 mg capsule,delayed 40 mg PO DAILY 07/26/23 07/26/23 Unknown History release propranolol 40 mg tablet 40 mg PO BID 07/26/23 07/28/23 07/28/23 History ropinirole 0.5 mg tablet 0.5 mg PO BID 07/26/23 07/28/23 07/28/23 History Allergies Allergy/AdvReac Type Severity Reaction Status Date / Time Penicillins Allergy RASH Verified 07/27/23 16:48 Sulfa (Sulfonamide Allergy ANAPHYLAXIS Verified 07/27/23 16:48 Antibiotics) Current Medications Generic Name Dose Route Start Last Admin Trade Name Freq PRN Reason Stop Dose Admin Hydromorphone HCl 0.5 mg 07/28/23 11:09 07/28/23 11:53 Hydromorphone 1 Mg/Ml Inj 1 Ml IVP 0.5 mg ONCE PRN Administration For preop pain/anxiety Sodium Chloride 1,000 mls @ 30 mls/hr 07/28/23 11:15 07/28/23 11:48 Sodium Chloride 0.9% IV 07/29/23 11:14 30 mls/hr .Q24H VERONICA Administration PFSH Anesthesia Medical History At risk for polypharmacy Altered mental status Chronic hypertension Diagnosed at the age of 14 and controlled on medication managed by primary care provider. Anxiety and depression Currently on Cymbalta managed by her primary care provider. Hypothyroid Currently on levothyroxine managed by PMD No pertinent past medical history Denies: hypertension, diabetes, heart, lung, liver, kidney, thyroid, genital herpes, bleeding problems, or clotting problems. her primary care provider is Dr. Salazar Chronic low back pain without sciatica Currently on hydrocodone and baclofen managed by the pain clinic Surgical History History of back surgery 10/2020---jef placed in back S/P breast biopsy 2000-left breast-benign History of dental surgery tooth extraction Hx of section 03/26/89 History of ankle surgery 2006--LEFT x3. In [place] Family History Mother Family history of thyroid problem Thyroid disease Diabetes Hypertension Father Brain aneurysm Denies family history of Colon cancer Ovarian cancer DVT (deep venous thrombosis) Heart disease Breast cancer Suicide Pulmonary embolism Uterine cancer Social History Smoking and tobacco/nicotine status: never used tobacco/nicotine Substance/Drug Use: never Data Anesthesia Cardiac Studies: Echocardiogram 01/12/22
[2023-07-28] MEDS: ceFAZolin 2,000 MG in sodium chloride 0.9% (plus) 50 ML 100 MG IV ×2 (13:42→21:39)
--- NOTE | 2023-07-28 14:17 | PC.NURSE ---
Upon arrival to room, patient noted to have several small open areas on mid back, another small area noted to right lateral hip. Patient appears to have a healing open area to the left hip as well. These were noted prior to surgery.
[2023-07-28] MEDS: vancomycin 1,000 MG SDV 1000 MG XX (14:19)
[2023-07-28] MEDS: lidocaine-epi 1% 20 mL INJ INJECTION (14:19)
--- NOTE | 2023-07-28 15:01 | P.OP_ITS ---
Operative Report Date of procedure: July 28, 2023 Pre-op diagnosis: Painful hardware lumbar spine Post-op diagnosis: same Procedure done: Remove deep hardware from pelvis/spine Surgeon: Cristian Stoll DO Estimated blood loss (mL): 25 Procedure: Remove deep hardware from pelvis/spine Is ready to proceed after Anesthesia patient was placed in the prone position. All areas appear well- padded. Patient prepped. Fashion skin incision made using above the incision. Dissection was made down to the sacrum. The iliac screws were identified bilaterally. As well as the S1 screws. Retractors were placed. The caps were removed from the iliac screws. Then high-speed bur metal cutting was used to cut the rods bilaterally. And then the jef was removed as well as the iliac screw. Wounds were irrigated closed in layered fashion Wilcox powder was placed. And deep layers closed 0 Vicryl skin was closed with 2-0 Vicryl and Monocryl suture. Sterile dressings applied patient transferred to PACU in stable condition.
[2023-07-28 15:51] LABS: ABG PH Result 7.23 (7.35-7.45); Arterial Blood Gas Hematocrit 35.7 % (37-47); Base Excess ABG -1.6 mmol/L (-2.0-2.0); Blood Gas Allen Test Pos; Blood Gas Operator Identificat GD; Blood Gas Sample Site Radial, left; Blood Gas Sample Type Arterial; Carboxyhemoglobin 1.5 %THgb (0.4-20.1); HCO3 ABG 27.2 mmol/L (22-26); HGB O2 Sat 94.6 % (95-100); Ionized Calcium Level - ABG 1.2 mmol/L (1.1-1.4); Methemoglobin 0.8 % (0.4-1.5); Oxygen Device SIMPLE MASK; Oxygen Saturation ABG 96.7; Potassium Level - ABG 4.2 mmol/L (3.5-5.0); Total Hemoglobin 11.7 g/dL (12-16)
[2023-07-28 15:52] LABS: ABG PCO2 65.7 mmHg (35-45)
--- NOTE | 2023-07-28 16:52 | ANE.PACU2 ---
Inpatient post-anesthesia follow up: Airway intact: Yes Vital signs: Temperature 97.7 F Pulse Rate 82 Respiratory Rate 16 Blood Pressure 159/111 Pulse Oximetry 99 Oxygen Delivery Me thod BiPAP Oxygen Flow Rate 8 Fraction of Inspir ed Oxygen 50 Hydration adequate: Yes Nausea and vomiting: No Pain level: 1 Mental status: Altered (Postop delirium) Additional Comments: Patient slow to wake up, ABG showed some CO2 retention (65mmHg), BiPAP applied with improvement, but patient still seems a bit off . Moves extremities X4. ?central anticholinergic syndrome...discussed with surgeon to place on observation overnight.
[2023-07-28] MEDS: docusate sodium 100 mg Capsule PO (18:27)
[2023-07-28] MEDS: lactated ringers 1,000 ML 90 ML IV (18:27)
[2023-07-28] MEDS: ropinirole 0.25 mg Tablet 0.5 MG PO (18:27)
[2023-07-28] MEDS: propranolol 40 mg Tablet PO (18:27)
[2023-07-28] MEDS: HYDROcodone-acetaminophen 10-325 mg Tablet PO (21:40)
[2023-07-28] MEDS: baclofen 10 mg Tablet 20 MG PO (23:57)
[2023-07-29] VITALS (7 sets, daily range): BP systolic 100–137; BP diastolic 64–80; PULSE 76–77; RESP 15–18; TEMP 36.4–36.7; O2SAT 84–97
[2023-07-29] MEDS: HYDROcodone-acetaminophen 10-325 mg Tablet PO ×3 (02:03→14:11)
[2023-07-29] MEDS: ceFAZolin 2,000 MG in sodium chloride 0.9% (plus) 50 ML 100 MG IV (06:15)
--- NOTE | 2023-07-29 06:51 | P.DS_ITS ---
Discharge Providers Date of Admission: 07/28/23 16:40 Date of Discharge: July 29, 2023 Attending Provider at Admission: Cristian Stoll DO Attending Provider at Discharge: Cristian Stoll DO Primary Care Provider: Charity Salazar MD Reason for Visit Reason for Visit: M48.062 Physical Exam Narrative: Resting comfortably in bed but has been up ambulating. Discharge Data Studies Completed and Pending Laboratory Results Specimen Type Arterial 07/28/23 15:37 Sample Site Radial, left 07/28/23 15:37 ABG pH 7.23 (7.35-7.45) L 07/28/23 15:37 ABG pCO2 65.7 mmHg (35-45) H* 07/28/23 15:37 ABG pO2 94.0 mmHg (80.0-100.0) 07/28/23 15:37 ABG HCO3 27.2 mmol/L (22-26) H 07/28/23 15:37 ABG O2 Saturation 96.7 07/28/23 15:37 ABG Base Excess -1.6 mmol/L (-2.0-2.0) 07/28/23 15:37 Hal Test Pos 07/28/23 15:37 A-a O2 Gradient Not Reportable 07/28/23 15:37 Hematocrit 35.7 % (37-47) L 07/28/23 15:37 Hgb O2 Saturation 94.6 % (95-100) L 07/28/23 15:37 Carboxyhemoglobin 1.5 %THgb (0.4-20.1) 07/28/23 15:37 Methemoglobin 0.8 % (0.4-1.5) 07/28/23 15:37 Total Hemoglobin 11.7 g/dL (12-16) L 07/28/23 15:37 Sodium 146.0 mmol/L (131-143) H 07/28/23 15:37 Potassium 4.2 mmol/L (3.5-5.0) 07/28/23 15:37 Glucose 120.0 mg/dL (70-115) H 07/28/23 15:37 Ionized Calcium 1.2 mmol/L (1.1-1.4) 07/28/23 15:37 O2 Delivery Device Simple mask 07/28/23 15:37 O2 Liters/Min 8.0 % 07/28/23 15:37 FiO2 0.0 % 07/28/23 15:37 Storage Receipt Poster ID [id number] 07/28/23 15:37 Vitals Last Vital Signs Temp 97.6 F 07/29/23 04:00 Pulse 76 07/29/23 04:00 Resp 18 07/29/23 04:00 BP 137/76 07/29/23 04:00 Pulse Ox 96 07/29/23 04:00 O2 Del Method Nasal Cannula 07/29/23 04:00 O2 Flow Rate 4 07/28/23 19:52 FiO2 50 07/28/23 16:05 Discharge Plan Discharge Patient Disposition: Home Condition: Stable Prescriptions: New hydrocodone-acetaminophen 10-325 mg tablet 1 tab PO Q4H PRN (Reason: pain) 7 Days Qty: 40 0RF Continued oxybutynin chloride 5 mg tablet See Rx Instructions .ROUTE .COMPLEX Rx Instructions: 5 mg orally in morning; 10mg HS baclofen 20 mg tablet 20 mg PO QID PRN (Reason: spasms) 30 Days Qty: 120 1RF levothyroxine 50 mcg capsule 50 mcg PO QDAY duloxetine [Cymbalta] 30 mg capsule,delayed release(DR/EC) 60 mg PO QDAY celecoxib 200 mg capsule 200 mg PO DAILY omeprazole 40 mg capsule,delayed release(DR/EC) 40 mg PO DAILY propranolol 40 mg tablet 40 mg PO BID ropinirole 0.5 mg tablet 0.5 mg PO BID lisinopril 10 mg tablet 10 mg PO DAILY doxylamine succinate 25 mg tablet 25 mg PO Q6H PRN (Reason: Insomnia) (DME) Bone Growth Stimulator E0748 See Rx Instructions .Route .MEDSUPPLY Qty: 1 0RF Rx Instructions: As directed oxybutynin chloride 10 mg tablet extended release 24hr 10 mg PO QPM sumatriptan succinate 50 mg Tablet 50 mg PO Q2H PRN (Reason: Migraine Headache) Rx Instructions: do not exceed 4 doses per 24 hrs alendronate 10 mg Tablet 10 mg PO Q7D temazepam [Restoril] 15 mg Capsule 15 mg PO BEDTIME Discontinued hydrocodone-acetaminophen 7.5-325 mg tablet 1 tab PO Q4H PRN (Reason: Pain) Discharge Orders: Discharge Order (Routine); Ordered 07/29/23 Ordered By: Cristian Stoll Referrals: Cristian Stoll DO [Physician] - 08/13/23 8:15 am Discharge Diet: Advance as tolerated Discharge Activity: Limit activity as instructed Activity Restrictions/Additional Instructions: Thank you for [facility] for your care! The following is a list of instructions, from your provider, to follow upon your discharge to ensure you have the optimal recovery from your recent injury orsurgery. Follow-up care is a rentreia part of your treatment and safety. Be sure to make and go to all appointments, and call your doctor if you are having problems. If you do not already have a follow-up appointment made, call Dr. Stoll office in the next 1-3 days to make follow up appointment for 2 weeks at [phone]. It is also a good idea to know your test results and keep a list of the medicines you take. Medications will be prescribed for you at your provider's discretion. These medications are to be used as instructed; if they are taken more often that pr escribed they will not be refilled early and in most cases will not be refilled at all. > When a refill is needed,you should contact [facility] 2-3 business days before your prescription runs out. Medications will NOT be refilled by [facility] providers after hours! > Many pain medications contain Tylenol (Acetaminophen). Do not consume more than 4,000 mg of Tylenol per day in total with any combination ofmedications. > Pain medications can cause constipation. Please use an over the counter stool softener as directed, while taking pain medications. Consulty our local pharmacist with questions or recommendations on stool softeners. If constipation persists, contact our office or your primary care provider. > While under our care,you are not to receive pain medications or other controlled substances from any other provider unless our office is notified and approves. Any attempts to do so will result in refusal to prescribe any further pain medications and possible dismissal from our practice. ? Your wound and/or dressing should remain clean and dry for 2 days after surgery. On postoperative day 2 (48 hours after your surgery) the dressing (if present) should be removed and it is okay to shower and get the incision wet. Pad dry afterwards. No further dressing should be required from that point on. Do not put any creams or ointments on theincision > It is normal for there to be a small amount of discharge (bloody or blood tinged) present from a surgical wound for the first 1-3days. > The wound should be examined twice a day for signs of infection. Mild redness or bruising is to be expected but indications that an infection maybe starting would include; An increase in redness, swelling, or discharge, a foul odor present around the incision, and/or a fever greater than 101 ?F ? Showering is permitted, however we ask that you do not take a bath, sit in a whirlpool / Jacuzzi, or go swimming for 1 month. For only the first 2 days after surgery, lt wilt be necessary for you to cover your wound/dressing with plastic and tape to keep it dry. ? Walking is essential for the healing process after surgery. We would like you to slowly advance your walking. This should be done on relatively flat clear ground (inside or out) or can be done on a treadmill. Remember this goal does not have to happen all at once, slowly increase your distance and duration. This can be broken into more more than one walk per day as tolerated. Patients who walk as directed after surgery rarely require Physical Therapy. In the unlikely event this issue arises your provider will direct hospital staff to make the appropriate arrangements. ? No lifting over 5 pounds {a gallon of milk) or bending/twisting until further notice. Each of these activities places an unnecessary amount of stress onto the body and can impede the delicate healing process. > Instead of bending at the waist, keep your back straight and bend at the knees. > Instead of twisting your torso, keep your back straight and turn your entire body with your feet. ? You may sleep in any position which makes you comfortable. Many patients find comfort sleeping in a reclining chair. It is not abnormal to have difficulty sleeping for the first several weeks following your surgery. We recommend trying Benadry! or Tylenol PM as directed to help with your sleeping difficulties. Both medications are over the counter and available withoutprescription. ? NO SMOKING!!! Smoking dramatically increases the probability of developing postoperative wound infections. ? Common complaints after lumbar and/or thoracic spine surgery include, but are not limited to: numbness and/or tingling in the legs, pain around the incision and surrounding tissues, muscle spasms, or stiffness of the middle to low back. Contact our office if these symptoms persist or if an acute change occurs. ? No driving for the first 3-5days, and not while taking narcotics until seen at your follow-up appointment and cleared. There are no restrictions for riding on short trips, however if you take a longer trip, arrangements should be made to make regular stops to get out of the vehicle and stretch . ? Swelling is an unfortunate event that will take place with any surgery and is the primary source of your postoperative discomfort. While walking and regular approved activities helps control inflammation, there are additional steps you can take to minimizeswelling. > Place ice over the surgical site and surrounding tissue for twenty minutes, followed by applying a low/medium heat (heating pad) for an additional twenty minutes every 1-2 hours as needed for painrelief. > You may use of over the counter anti-inflammatory medications (Ibuprofen, Motrin, Aleve, Advil, etc) as directed on the package label. These types of medicines wm significantly reduce the amount of discomfort you experience after surgery from swelling. It should be noted that if you have and allergy to any of these medications, or a history of ulcers or kidney disease you should consult you primary care provider prior to starting these medications. Discharge Attestations Time Spent in Discharge Care*: less than 30 min Quality Metrics Clinical Quality Measures [ No reported AMI, CVA or VTE this stay] Coding Level of Care Code Acute Code for Jade Gracia
--- NOTE | 2023-07-29 07:33 | PC.PHAR ---
HAS DISCHARGE ORDERS IN- UNABLE TO COMPLETE MED REC
[2023-07-29] MEDS: propranolol 40 mg Tablet PO (08:13)
[2023-07-29] MEDS: ropinirole 0.25 mg Tablet 0.5 MG PO (08:14)
[2023-07-29] MEDS: lisinopril 10 mg Tablet PO (08:14)
[2023-07-29] MEDS: duloxetine 60 mg Capsule PO (08:14)
[2023-07-29] MEDS: oxybutynin 5 mg Tablet PO (08:14)
[2023-07-29] MEDS: docusate sodium 100 mg Capsule PO (08:14)
[2023-07-29] MEDS: CELEcoxib 200 mg Capsule PO (08:15)
[2023-07-29] MEDS: baclofen 10 mg Tablet 20 MG PO (08:15)
[2023-07-29] MEDS: levothyroxine 50 mcg Tablet PO (08:15)
--- NOTE | 2023-07-29 10:59 | PC.SOCIAL ---
Patient qualified for 2L of Oxygen, obtained choice and sent to HOME. Choice sheet placed in chart. Notified Alie at HOME to have her look and see if patients insurance would even cover her oxygen needs. She stated she would look it over and get back to me.
--- OUTSIDE RECORDS SUMMARY | 2023-07-29 11:02 | XMS_ITS | Patient Health Record ---
Author Name Unknown Organization [facility] Address [address] [place] [address] Support Name Relationship Address Phone Niki Agosto Guarantor Unknown [phone] REASON FOR REFERRAL No Information MEDICATIONS Medication SIG (Take, Route, Frequency, Duration) Notes Start Date End Date Status Lorazepam 1 MG Oral Tablet Lorazepam 1 MG Oral Tablet 03/14/2014 Active Sumatriptan 100 MG Oral Tablet Sumatriptan 100 MG Oral Tablet 05/14/2014 Active Fluoxetine 40 MG Oral Capsule Fluoxetine 40 MG Oral Capsule 04/23/2014 Active Acetaminophen 325 MG / Hydrocodone Bitartrate 7.5 MG Oral Tablet [[place] 7.5/325] Acetaminophen 325 MG / Hydrocodone Bitartrate 7.5 MG Oral Tablet [[place] 7.5/325] 03/14/2014 Active topiramate 100 MG Oral Tablet topiramate 100 MG Oral Tablet 05/14/2014 Active Verapamil hydrochloride 120 MG Oral Tablet Verapamil hydrochloride 120 MG Oral Tablet 05/14/2014 Active SOCIAL HISTORY Sex Assigned At : Social History Observation Description Sex Assigned At Unknown PLAN OF TREATMENT No Information
--- NOTE | 2023-07-29 11:28 | PC.SOCIAL ---
Notified Dr Stoll of need for Hypoxiemia diagnosis to be in patients chart.
--- NOTE | 2023-07-29 12:12 | PC.NURSE ---
pt has oxygen from HOME and is waiting on her ride home which should be her around 3pm
--- NOTE | 2023-07-29 14:29 | PC.NURSE ---
Discharge Note Patient discharged to home via private vehicle accompanied by friend. Discharge instructions reviewed with patient and/or financial foundations representative. Mobile pharmacy medications and/or prescriptions provided. Belongings/home medications returned.
== END 2023-07-29 15:24 | disposition home or self-care (01) | DRG 517 ==
LOC: MEDSURG 17:13
PROVIDERS: Anesthesiology; Admitting Provider Orthopaedic Surgery; PCP Internal Medicine; Visit Provider Orthopaedic Surgery
PROC: 0SP304Z Removal of Internal Fixation Device from Lumbosacral Joint, Open Approach (ICD-10-PCS; principal; 2023-07-28 12:15)
DX: T84.84XA Pain due to internal orthopedic prosthetic devices, implants and grafts, initial encounter (principal); Y79.8 Miscellaneous orthopedic devices associated with adverse incidents, not elsewhere classified; I10 Essential (primary) hypertension; F41.9 Anxiety disorder, unspecified; F32.A Depression, unspecified; E03.9 Hypothyroidism, unspecified; K21.9 Gastro-esophageal reflux disease without esophagitis; D64.9 Anemia, unspecified; E66.01 Morbid (severe) obesity due to excess calories; G89.29 Other chronic pain; Z68.37 Body mass index [BMI] 37.0-37.9, adult
CPT/HCPCS: 36600; 80051; 80053; 81003; 82330; 82805; 85025; 87086; 94760; J0690; J1100; J1170; J2405; J2704; J3010; J3370; J3490; J7030; J7120

== ENCOUNTER 2023-08-20 19:10 | Emergency (ER) | payer MEDICARE, SELFPAY ==
[2023-08-20 19:13] VITALS: BP 141/84; PULSE 70; RESP 16; TEMP 36.9; O2SAT 100
--- NOTE | 2023-08-20 19:13 | XRR_ITS ---
PROCEDURE INFORMATION: Exam: XR Left Hip Exam date and time: 08/20/2023 8:24 PM Age: 63 years old Clinical indication: Prior surgery; Surgery date: <1 month; Surgery type: Hip screw removal jul 2023. Lumbar fusion; Patient HX: C/O left hip pain post hardware removal. ; Additional info: Injury TECHNIQUE: Imaging protocol: Radiologic exam of the left hip. Views: 2 or 3 views hip with pelvis when performed. COMPARISON: 1. CR XR pelvis 1-2V* [id number] 08/27/2022 2:36 PM 2. CR XR lumbar spine 2-3V* [id number] 06/01/2023 1:31 PM FINDINGS: Bones/joints: There are redemonstration of changes consistent with prior fusion in the sacrum. There is lucency around the visualized sacral hardware raising concern for loosening. Surgical hardware through the right and left sacroiliac joints has been removed. No acute fracture. No dislocation. Bones are mildly osteopenic. Mild degenerative changes at both the right and left hips. Mild degenerative changes of the right and left sacroiliac joints. Soft tissues: No soft tissue swelling. No radiopaque foreign body. No radiopaque foreign body. XR/XR hip LT 2-3V wo/w pel* [id number] IMPRESSION: 1. No acute fracture. MRI of the pelvis would be recommended if clinical concern for fracture persists. 2. There are redemonstration of changes consistent with prior fusion in the sacrum. There is lucency around the visualized sacral hardware raising concern for loosening. Recommend clinical correlation. 3. Surgical hardware through the right and left sacroiliac joints has been removed. 4. Incidental/nonacute findings are listed in the report.
--- NOTE | 2023-08-20 20:41 | ED_ITS ---
Documented by User: JOSE A Quiñones 08/20/23 22:07 HPI - Extremity Problem General: Chief complaint: Extremity Injury, Lower Stated complaint: left hip pain Time Seen by Provider: 08/20/23 19:15 Source: patient Mode of arrival: wheelchair Limitations: no limitations History of Present Illness: Patient is 63-year-old female past surgical history of multiple spinal fusions who presents to the emergency department complaining of left hip pain onset 2 weeks. Patient states she had some hardware removed 2 weeks, stating that ever since she has had increasingly worsening left hip pain. The pain is anterior and primarily in the groin, but she states when she walks she has excruciating pain from her hip that radiates down her left leg. She presents today stating that her primary concern is that she cannot ambulate, stating that she has always been in pain but has always been able to walk. She denies any distal numbness or paresthesias. She feels the pain at all times but states that is primarily worse with flexion at the hip. Patient states that her hydrocodone as needed has not been helping with her pain. MD Complaint: joint pain (Left hip) Onset (ago): week(s) Pain Consistency: constant Location: left Exacerbating factors: range of motion (Hip flexion) Associated symptoms: Deny chest pain, fever(s) or rash Review of Systems 2 General: Reports: 10 or more systems reviewed and unremarkable except in HPI and below Const: Denies: fever(s) or chills Card: Denies: chest pain, palpitations, edema or lightheadedness Resp: Denies: dyspnea, productive cough or wheezing GI: Denies: abdominal pain, nausea, vomiting or diarrhea : Denies: flank pain Musc: Reports: extremity pain (LLE), joint pain (Left hip) and limited range of motion (From pain); Denies: neck pain, extremity swelling, joint swelling, joint redness or joint warmth Skin/Breast: Denies: rash or pruritus Neuro: Denies: headache(s) PFSH ED PFSH: Medical History At risk for polypharmacy Altered mental status Chronic hypertension Diagnosed at the age of 14 and controlled on medication managed by primary care provider. Anxiety and depression Currently on Cymbalta managed by her primary care provider. Hypothyroid Currently on levothyroxine managed by PMD No pertinent past medical history Denies: hypertension, diabetes, heart, lung, liver, kidney, thyroid, genital herpes, bleeding problems, or clotting problems. her primary care provider is Dr. Salazar Chronic low back pain without sciatica Currently on hydrocodone and baclofen managed by the pain clinic Surgical History History of back surgery 10/2020---jef placed in back S/P breast biopsy 2000-left breast-benign History of dental surgery tooth extraction Hx of section 03/26/89 History of ankle surgery 2006--LEFT x3. In [place] Family History Mother Family history of thyroid problem Thyroid disease Diabetes Hypertension Father Brain aneurysm Denies family history of Colon cancer Ovarian cancer DVT (deep venous thrombosis) Heart disease Breast cancer Suicide Pulmonary embolism Uterine cancer Social History Smoking and tobacco/nicotine status: never used tobacco/nicotine Substance/Drug Use: never Physical Exam Const: COMMON NORMALS: patient oriented x3, no limitations and alert GENERAL APPEARANCE: cooperative and in distress (From pain) NUTRITIONAL APPEARANCE: obese ORIENTATION/CONSCIOUSNESS: Yes awake HENMT: COMMON NORMALS: normocephalic, atraumatic, hearing grossly normal bilaterally and Normal external nose present HEAD & SCALP: normocephalic and atraumatic NOSE: Normal external nose present Eye: COMMON NORMALS: EOMs intact bilaterally and conjunctivae normal CONJUNCTIVA: Yes conjunctivae normal Neck/C-Spine: COMMON NORMALS: full ROM and no JVD Resp: COMMON NORMALS: normal respiratory effort, No retractions, No use of accessory muscles and clear to auscultation bilaterally AUSCULTATION: clear to auscultation bilaterally Cardio: COMMON NORMALS: no JVD, regular rate, regular rhythm, S1 normal heart sound present, S2 normal heart sound present, No gallops present (Cardio), No clicks present (Cardio), No murmurs present (Cardio) and No rub (Cardio) RATE: regular rate RHYTHM: regular rhythm HEART SOUNDS: S1 normal heart sound present and S2 normal heart sound present Back/Pelvis: OTHER: Well-healed postoperative scars present from prior back surgery Extremity: COMMON NORMALS: normal to inspection NARRATIVE EXTREMITY EXAM: Bilateral 2+ edema LEFT LOWER EXTREMITY: Yes hip joint Left hip: Yes inspection (Normal), Yes palpation (Mild reproducible tenderness palpation about the anterior hip joint), Yes ROM (Severely limited from pain, worse with flexion) and Yes neurovascular exam (Intact) Neuro: COMMON NORMALS: patient oriented x3, moves all extremities, no focal motor deficits and no sensory deficits noted SENSORIUM/ORIENTATION: Yes alert Psych: COMMON NORMALS: mental status grossly normal Skin: COMMON NORMALS: no rashes or lesions noted GENERAL SKIN EXAM: no rashes or lesions noted Course Vital Signs: Vital signs: Vital Signs Temperature 98.4 F 08/20/23 19:13 Pulse Rate 78 08/20/23 21:40 Respiratory Rate 18 08/20/23 21:40 Blood Pressure 145/86 08/20/23 20:46 Pulse Oximetry 98 08/20/23 21:40 Oxygen Delivery Me thod Room Air 08/20/23 19:13 MDM - Extremity (Nontraumatic) Medical Decision Making This patient was seen and evaluated in the emergency department today due to worsening left hip pain over the past 2 weeks. Patient has appointment with Dr. Li next Wednesday, but patient was concerned that she has not been able to walk due to the pain in her left hip status post hardware removal in July. Vitals normal. Patient exhibited pain with range of motion in all ramon on examination, but there were no acute signs of deformity, bruising, or other concerning exam findings. X-ray of the left hip and pelvis did not show any acute fractures, but stated MRI would be needed to further rule out any acute fractures. I discussed patient's case with Dr. Li, and he states that it is reasonable to continue treating patient with hydrocodone as needed, and that she can continue her plan for follow-up next week. I will also begin the patient on gabapentin to see if this helps her radiation of pain down her left leg. Patient agrees with this plan and will follow-up next week as scheduled. Reasons to return are discussed. Patient discharged home. Medical Records I reviewed the patient's medical records. Lab Data Radiology Impressions Hip/Pelvis X-Ray 08/20/23 19:13 IMPRESSION: 1. No acute fracture. MRI of the pelvis would be recommended if clinical concern for fracture persists. 2. There are redemonstration of changes consistent with prior fusion in the sacrum. There is lucency around the visualized sacral hardware raising concern for loosening. Recommend clinical correlation. 3. Surgical hardware through the right and left sacroiliac joints has been removed. 4. Incidental/nonacute findings are listed in the report. All radiology interpretation(s) finalized by discharge Discharge Plan Discharge Patient Disposition: Home Clinical Impression: Acute postoperative pain of left hip Condition: Stable Prescriptions: New gabapentin 300 mg capsule 300 mg PO DAILY PRN (Reason: pain) Qty: 10 0RF No Action oxybutynin chloride 5 mg tablet See Rx Instructions .ROUTE .COMPLEX Rx Instructions: 5 mg orally in morning; 10mg HS baclofen 20 mg tablet 20 mg PO QID PRN (Reason: spasms) 30 Days Qty: 120 1RF levothyroxine 50 mcg capsule 50 mcg PO QDAY duloxetine [Cymbalta] 30 mg capsule,delayed release(DR/EC) 60 mg PO QDAY celecoxib 200 mg capsule 200 mg PO DAILY omeprazole 40 mg capsule,delayed release(DR/EC) 40 mg PO DAILY propranolol 40 mg tablet 40 mg PO BID ropinirole 0.5 mg tablet 0.5 mg PO BID lisinopril 10 mg tablet 10 mg PO DAILY doxylamine succinate 25 mg tablet 25 mg PO Q6H PRN (Reason: Insomnia) (DME) Bone Growth Stimulator E0748 See Rx Instructions .Route .MEDSUPPLY Qty: 1 0RF Rx Instructions: As directed hydrocodone-acetaminophen 10-325 mg tablet 1 tab PO Q4H PRN (Reason: pain) 7 Days Qty: 40 0RF oxybutynin chloride 10 mg tablet extended release 24hr 10 mg PO QPM sumatriptan succinate 50 mg Tablet 50 mg PO Q2H PRN (Reason: Migraine Headache) Rx Instructions: do not exceed 4 doses per 24 hrs alendronate 10 mg Tablet 10 mg PO Q7D temazepam [Restoril] 15 mg Capsule 15 mg PO BEDTIME Discharge Orders: Discharge ED (Routine); Ordered 08/20/23 Ordered By: Maldonado Samayoa Referrals: Charity Salazar MD [Primary Care Provider] - Discharge Diet: Usual diet Discharge Activity: Increase activity as tolerated Patient Instructions: Opioid Safety, Pain Management Activity Restrictions/Additional Instructions: Take gabapentin as discussed. Continue taking your hydrocodone for breakthrough pain. Follow-up with orthopedics next week as planned. Return if you develop any new concerning symptoms. Coding Level of Care Code ED Varying Exceptionalities Teacher for Chg Fwd Documented by User: Champ Palma DO 08/23/23 06:03 HPI - Extremity Problem General: Chief complaint: Extremity Injury, Lower Stated complaint: left hip pain Time Seen by Provider: 08/20/23 19:15 PFSH ED PFSH: Medical History At risk for polypharmacy Altered mental status Chronic hypertension Diagnosed at the age of 14 and controlled on medication managed by primary care provider. Anxiety and depression Currently on Cymbalta managed by her primary care provider. Hypothyroid Currently on levothyroxine managed by PMD No pertinent past medical history Denies: hypertension, diabetes, heart, lung, liver, kidney, thyroid, genital herpes, bleeding problems, or clotting problems. her primary care provider is Dr. Salazar Chronic low back pain without sciatica Currently on hydrocodone and baclofen managed by the pain clinic Surgical History History of back surgery 10/2020---jef placed in back S/P breast biopsy 2000-left breast-benign History of dental surgery tooth extraction Hx of section 03/26/89 History of ankle surgery 2006--LEFT x3. In [place] Family History Mother Family history of thyroid problem Thyroid disease Diabetes Hypertension Father Brain aneurysm Denies family history of Colon cancer Ovarian cancer DVT (deep venous thrombosis) Heart disease Breast cancer Suicide Pulmonary embolism Uterine cancer Social History Smoking and tobacco/nicotine status: never used tobacco/nicotine Substance/Drug Use: never Course Vital Signs: Vital signs: Vital Signs Temperature 98.4 F 08/20/23 19:13 Pulse Rate 78 08/20/23 21:40 Respiratory Rate 18 08/20/23 21:40 Blood Pressure 145/86 08/20/23 20:46 Pulse Oximetry 98 08/20/23 21:40 Oxygen Delivery Me thod Room Air 08/20/23 19:13 MDM - Extremity (Nontraumatic) Medical Decision Making This patient was seen and evaluated in the emergency department today due to worsening left hip pain over the past 2 weeks. Patient has appointment with Dr. Li next Wednesday, but patient was concerned that she has not been able to walk due to the pain in her left hip status post hardware removal in July. Vitals normal. Patient exhibited pain with range of motion in all ramon on examination, but there were no acute signs of deformity, bruising, or other concerning exam findings. X-ray of the left hip and pelvis did not show any acute fractures, but stated MRI would be needed to further rule out any acute fractures. I discussed patient's case with Dr. Li, and he states that it is reasonable to continue treating patient with hydrocodone as needed, and that she can continue her plan for follow-up next week. I will also begin the patient on gabapentin to see if this helps her radiation of pain down her left leg. Patient agrees with this plan and will follow-up next week as scheduled. Reaso ns to return are discussed. Patient discharged home. Chart reviewed Lab Data Radiology Impressions Hip/Pelvis X-Ray 08/20/23 19:13 IMPRESSION: 1. No acute fracture. MRI of the pelvis would be recommended if clinical concern for fracture persists. 2. There are redemonstration of changes consistent with prior fusion in the sacrum. There is lucency around the visualized sacral hardware raising concern for loosening. Recommend clinical correlation. 3. Surgical hardware through the right and left sacroiliac joints has been removed. 4. Incidental/nonacute findings are listed in the report. Discharge Plan Discharge Patient Disposition: Home Clinical Impression: Acute postoperative pain of left hip Condition: Stable Prescriptions: New gabapentin 300 mg capsule 300 mg PO DAILY PRN (Reason: pain) Qty: 10 0RF No Action oxybutynin chloride 5 mg tablet See Rx Instructions .ROUTE .COMPLEX Rx Instructions: 5 mg orally in morning; 10mg HS baclofen 20 mg tablet 20 mg PO QID PRN (Reason: spasms) 30 Days Qty: 120 1RF levothyroxine 50 mcg capsule 50 mcg PO QDAY duloxetine [Cymbalta] 30 mg capsule,delayed release(DR/EC) 60 mg PO QDAY celecoxib 200 mg capsule 200 mg PO DAILY omeprazole 40 mg capsule,delayed release(DR/EC) 40 mg PO DAILY propranolol 40 mg tablet 40 mg PO BID ropinirole 0.5 mg tablet 0.5 mg PO BID lisinopril 10 mg tablet 10 mg PO DAILY doxylamine succinate 25 mg tablet 25 mg PO Q6H PRN (Reason: Insomnia) (DME) Bone Growth Stimulator E0748 See Rx Instructions .Route .MEDSUPPLY Qty: 1 0RF Rx Instructions: As directed hydrocodone-acetaminophen 10-325 mg tablet 1 tab PO Q4H PRN (Reason: pain) 7 Days Qty: 40 0RF oxybutynin chloride 10 mg tablet extended release 24hr 10 mg PO QPM sumatriptan succinate 50 mg Tablet 50 mg PO Q2H PRN (Reason: Migraine Headache) Rx Instructions: do not exceed 4 doses per 24 hrs alendronate 10 mg Tablet 10 mg PO Q7D temazepam [Restoril] 15 mg Capsule 15 mg PO BEDTIME Discharge Orders: Discharge ED (Routine); Ordered 08/20/23 Ordered By: Maldonado Samayoa Referrals: Charity Salazar MD [Primary Care Provider] - Discharge Diet: Usual diet Discharge Activity: Increase activity as tolerated Patient Instructions: Opioid Safety, Pain Management Activity Restrictions/Additional Instructions: Take gabapentin as discussed. Continue taking your hydrocodone for breakthrough pain. Follow-up with orthopedics next week as planned. Return if you develop any new concerning symptoms. Coding Level of Care Code ED Varying Exceptionalities Teacher for Jade Gracia
[2023-08-20 20:46] VITALS: BP 145/86; PULSE 78; RESP 16; O2SAT 93
[2023-08-20] MEDS: ketorolac 60 mg/2 mL INJ IM (20:53)
[2023-08-20 21:40] VITALS: PULSE 78; RESP 18; O2SAT 98
== END 2023-08-20 21:42 | disposition home or self-care (01) ==
PROVIDERS: Emergency Provider Physician Assistant; PCP Internal Medicine
DX: G89.18 Other acute postprocedural pain (principal); M25.552 Pain in left hip; I10 Essential (primary) hypertension
CPT/HCPCS: 73502; 96372; 99284; J1885

== ENCOUNTER 2023-08-23 12:39 | Inpatient (IN) | payer MEDICARE, SELFPAY ==
[2023-08-23] VITALS (16 sets, daily range): BP systolic 131–195; BP diastolic 67–118; PULSE 77–101; RESP 16–19; TEMP 36.1–37.3; O2SAT 92–98; BMI 36.0
--- NOTE | 2023-08-23 12:54 | CT_ITS ---
WS: [id number] CT LEFT HIP, NONCONTRAST. HISTORY: pain/trauma Technique: All CT scans at [facility] use at least one of these dose optimization techniques: automated exposure control; mA and/or kV adjustment per patient size (includes targeted exams where dose is matched to clinical indication); or iterative reconstruction. DLP: 998.04 mGy.cm COMPARISON: Radiograph 08/20/2023. There is no acute fracture involving the LEFT proximal femur with marked valgus deformity. There is f oreshortening of the LEFT femoral length. Fractures below the greater trochanter. There is partial in volvement of the lesser trochanter and the fracture extends subtrochanteric. There is impaction along the fracture line. Variable attenuation in the medullary cavity may be hemorrhage. There is no soft tissue mass. If the trauma does not support a fracture of this could be a pathological fracture. This fracture was not present on the radiograph seen on 08/20/2023. Screw tract through the LEFT SI joint. Additional screws are noted bilaterally in the sacrum. Both of these screws have lucency surrounding them suggesting loosening. No additional fracture. There is muscle atrophy of the LEFT pelvis and only a small amount of edema. IMPRESSION: 1. Acute trochanteric to subtrochanteric fracture LEFT hip. The fracture does extend to involve the lesser trochanter. Marked valgus deformity. 2. Mild soft tissue edema. 3. Variable density along the fracture site may be due to some medullary hemorrhage.
--- NOTE | 2023-08-23 13:18 | ECG_ITS ---
[facility] Test Date: 2023-08-23 Pat Name: Niki Agosto Department: Room: Gender: Female Tooler: : 1960 Requested By: Champ Diaz Order Number: [id number] Kirti MD: Chris Rizo M.D. Measurements Intervals [place] Rate: 92 P: 47 CA: 175 QRS: -10 QRSD: 90 T: 31 QT: 374 QTc: 464 Interpretive Statements SINUS RHYTHM Compared to ECG 10/11/2022 07:47:16 No significant changes Electronically Signed On 08-23-2023 14:22:25 CDT by Chris Rizo M.D. [id number]
--- NOTE | 2023-08-23 13:51 | XRR_ITS ---
PROCEDURE INFORMATION: Exam: XR Chest Exam date and time: 08/23/2023 2:29 PM Age: 63 years old Clinical indication: Cough and dyspnea; Additional info: Dyspnea/cough TECHNIQUE: Imaging protocol: Radiologic exam of the chest. Views: 1 view. COMPARISON: CR XR chest 2V* [id number] 11/05/2022 1:58 PM FINDINGS: Lungs: Lower lung volumes. New mild, diffuse bilateral pulmonary edema and/or pneumonitis. Pleural spaces: Unremarkable. No pleural effusion. No pneumothorax. Heart/Mediastinum: Unremarkable. No cardiomegaly. Bones/joints: Unchanged osseous structures and osseous hardware. XR/XR chest 1V portable [id number] IMPRESSION: Lower lung volumes with new mild, diffuse bilateral pulmonary edema and/or pneumonitis.
--- NOTE | 2023-08-23 14:00 | XRR_ITS ---
PROCEDURE INFORMATION: Exam: XR Pelvis Exam date and time: 08/23/2023 2:34 PM Age: 63 years old Clinical indication: Hip pain; Left hip TECHNIQUE: Imaging protocol: Radiologic exam of the pelvis. Views: 1 or 2 view. COMPARISON: CR (PELVIS, ) 08/20/2023 8:24 PM FINDINGS: Bones/joints: Transverse fracture with some impaction of the most proximal left femoral diaphysis. Resultant varus deformity of the proximal left femur. The proximal left femur from the intertrochanteric region to the femoral head is rotated, but not dislocated. Mildly displaced fracture of the medial left acetabulum. This may extend into the inferior left acetabulum. Mild arthritic changes both hips. Surgical hardware lower lumbar spine and upper sacrum bilaterally. Otherwise, unremarkable. Soft tissues: Unremarkable. XR/XR pelvis 1-2V* [id number] IMPRESSION: 1. Acute proximal left femoral fracture. 2. Medial left acetabular fracture which may extend into the inferior acetabulum.
--- NOTE | 2023-08-23 14:02 | ED_ITS ---
HPI - Extremity Problem 2 General: Chief complaint: Extremity Injury, Lower Stated complaint: hip pain Time Seen by Provider: 08/23/23 12:54 Source: patient Mode of arrival: EMS History of Present Illness: 63-year-old female who was seen 2 days a go in the emergency room complaining of right hip pain x-ray at that time was negative they recommended a follow-up MRI if the pain persists acute fallen about a week prior. She states that she was doing okay continue to have pain and then this morning got up to use her walker she estimates she made about 10 steps and had severe pain and had to sit down called her friend who called ambulance and had her brought here. She had no new falls or new trauma since she was last seen in the emergency room. She denies chest pain or abdominal pain no falls today she was able to get herself to a seated position without the walker. MD Complaint: joint swelling and joint pain Onset (ago): minute(s) Pain Consistency: constant Location: right (Hip) Quality: sharp Radiation: distal Relieving factors: nothing Exacerbating factors: nothing Associated symptoms: Deny arthralgias, chest pain, fever(s), myalgias, rash or short of breath Review of Systems 2 Const: Denies: fever(s) Card: Denies: chest pain Resp: Denies: dyspnea GI: Denies: abdominal pain : Denies: dysuria, urinary frequency or urinary urgency Musc: Denies: neck pain or back pain Skin/Breast: Denies: rash PFSH ED 2 PFSH: Medical History At risk for polypharmacy Altered mental status Chronic hypertension Diagnosed at the age of 14 and controlled on medication managed by primary care provider. Anxiety and depression Currently on Cymbalta managed by her primary care provider. Hypothyroid Currently on levothyroxine managed by PMD No pertinent past medical history Denies: hypertension, diabetes, heart, lung, liver, kidney, thyroid, genital herpes, bleeding problems, or clotting problems. her primary care provider is Dr. Salazar Chronic low back pain without sciatica Currently on hydrocodone and baclofen managed by the pain clinic Surgical History History of back surgery 10/2020---jef placed in back S/P breast biopsy 2000-left breast-benign History of dental surgery tooth extraction Hx of section 03/26/89 History of ankle surgery 2006--LEFT x3. In [place] Family History Mother Family history of thyroid problem Thyroid disease Diabetes Hypertension Father Brain aneurysm Denies family history of Colon cancer Ovarian cancer DVT (deep venous thrombosis) Heart disease Breast cancer Suicide Pulmonary embolism Uterine cancer Social History Smoking and tobacco/nicotine status: never used tobacco/nicotine Substance/Drug Use: never Physical Exam 2 Const: COMMON NORMALS: no acute distress GENERAL APPEARANCE: cooperative and comfortable ORIENTATION/CONSCIOUSNESS: Yes awake, Yes oriented to person, Yes oriented to place and Yes oriented to time HENMT: COMMON NORMALS: normocephalic, atraumatic and hearing grossly normal bilaterally HEAD & SCALP: normocephalic and atraumatic Resp: COMMON NORMALS: normal respiratory effort, No retractions, No use of accessory muscles and clear to auscultation bilaterally AUSCULTATION: clear to auscultation bilaterally Cardio: COMMON NORMALS: regular rate, regular rhythm and No murmurs present (Cardio) RATE: regular rate RHYTHM: regular rhythm GI: COMMON NORMALS: Soft to palpation and No hepatosplenomegaly present A USCULTATION: Yes normoactive bowel sounds PALPATION: Yes Soft to palpation, No Tenderness to palpation present (GI), No Guarding due to palpation present (GI) and Yes No hepatosplenomegaly present Extremity: OTHER: Left hip pain obvious deformity Neuro: SENSORIUM/ORIENTATION: Yes oriented to person, Yes oriented to place and Yes oriented to time Skin: COMMON NORMALS: no rashes or lesions noted GENERAL SKIN EXAM: no rashes or lesions noted Course 2 Vital Signs: Vital signs: Vital Signs Temperature 98.4 F 08/23/23 12:53 Pulse Rate 82 08/23/23 13:23 Respiratory Rate 16 08/23/23 14:26 Blood Pressure 151/84 08/23/23 13:23 Pulse Oximetry 94 08/23/23 14:26 Oxygen Delivery Me thod Room Air 08/23/23 13:23 MDM - Extremity (Nontraumatic) Medical Decision Making Left hip fracture moderately displaced discussed Dr. Kent even with today's CT and plain films she cannot see on the film from 2 days ago defect suggestive of fracture. Will place patient in [facility] traction pain medication as needed discussed with on-call orthopedics and with hospitalist will admit orthopedics is planning on doing hip revision tomorrow. Medical Records I reviewed the patient's medical records. Lab Data I reviewed the patient's lab results. 08/23/23 14:05 08/23/23 14:05 Radiology Impressions Chest X-Ray 08/23/23 13:51 IMPRESSION: Lower lung volumes with new mild, diffuse bilateral pulmonary edema and/or pneumonitis. Pelvis X-Ray 08/23/23 14:00 IMPRESSION: 1. Acute proximal left femoral fracture. 2. Medial left acetabular fracture which may extend into the inferior acetabulum. Laboratory Results WBC 5.72 10^3/uL (3.29-11.43) 08/23/23 14:05 RBC 3.72 10^6/uL (3.85-5.65) L 08/23/23 14:05 Hgb 11.00 g/dL (11.27-16.99) L 08/23/23 14:05 Hct 36.2 % (36-47) 08/23/23 14:05 MCV 97.3 fl (85-98) 08/23/23 14:05 MCH 29.6 pg (27-33) 08/23/23 14:05 MCHC 30.4 g/dL (30-55) 08/23/23 14:05 RDW 13.8 % (12.1-15.1) 08/23/23 14:05 Plt Count 204 10^3/cmm (157-399) 08/23/23 14:05 MPV 9.2 fL (7.4-10.4) 08/23/23 14:05 Neut % (Auto) 74.4 % 08/23/23 14:05 Lymph % (Auto) 16.3 % 08/23/23 14:05 [place] % (Auto) 6.6 % 08/23/23 14:05 Eos % (Auto) 1.7 % 08/23/23 14:05 Baso % (Auto) 0.7 % 08/23/23 14:05 Neut # (Auto) 4.25 10^3/uL (1.8-7.7) 08/23/23 14:05 Lymph # (Auto) 0.9 10^3/uL (0.8-4.8) 08/23/23 14:05 [place] # (Auto) 0.4 10^3/uL (0.2-0.9) 08/23/23 14:05 Eos # (Auto) 0.1 10^3/uL (0.0-0.8) 08/23/23 14:05 Baso # (Auto) 0.0 10^3/uL (0.0-0.1) 08/23/23 14:05 Nucleated RBC % (auto) 0 % 08/23/23 14:05 Nucleated RBCs # 0.0 /100WBC 08/23/23 14:05 PT 14.00 SECONDS (12.1-14.9) 08/23/23 14:05 INR 1.05 (0.8-1.2) 08/23/23 14:05 APTT 29.4 SECONDS (23.9-36.7) 08/23/23 14:05 Sodium 142 mmol/L (136-145) 08/23/23 14:05 Potassium 4.8 mmol/L (3.5-5.1) 08/23/23 14:05 Chloride 105 mmol/L (98-107) 08/23/23 14:05 Carbon Dioxide 29 mmol/L (22-29) 08/23/23 14:05 Anion Gap 12.8 (5-19) 08/23/23 14:05 BUN 15 mg/dL (8-23) 08/23/23 14:05 Creatinine 0.6 mg/dL (0.5-0.9) 08/23/23 14:05 GFR Calculation 100.3 mL/min (90-130) 08/23/23 14:05 Glucose 117 mg/dL (65-115) H 08/23/23 14:05 Calculated Osmolality 296 mOsm/kg (285-295) H 08/23/23 14:05 Calcium 8.9 mg/dL (8.5-10.5) 08/23/23 14:05 Total Bilirubin 0.4 mg/dL (0.15-1.2) 08/23/23 14:05 AST 21 U/L (0-32) 08/23/23 14:05 ALT 12 U/L (0-33) 08/23/23 14:05 Alkaline Phosphatase 118 U/L (35-105) H 08/23/23 14:05 Total Protein 7.3 g/dL (6.6-8.7) 08/23/23 14:05 Albumin 4.0 g/dL (3.5-5.2) 08/23/23 14:05 Globulin 3.3 g/dL (1.3-4.6) 08/23/23 14:05 All radiology interpretation(s) finalized by discharge Discharge Plan Discharge Patient Disposition: Admitted As Inpatient Clinical Impression: Closed fracture of left hip, Anemia Condition: Stable Coding Level of Care Code ED [employer] for Jade Gracia
[2023-08-23] MEDS: ondansetron 2 mg/ML SDV 2 mL 4 MG IVP (14:12)
[2023-08-23] MEDS: morphine 4 mg/mL SDV 1 mL IVP (14:12)
[2023-08-23] MEDS: orphenadrine 30 mg/mL Inj 2 mL 60 MG IVP (14:13)
[2023-08-23 14:16] LABS: Basophils % 0.7 %; Eosinophils # 0.1 10^3/uL (0.0-0.8); Eosinophils % 1.7 %; Hematocrit 36.2 % (36-47); Lymphocytes # 0.9 10^3/uL (0.8-4.8); Lymphocytes % 16.3 %; Mean Corpuscular HGB Conc 30.4 g/dL (30-55); Mean Corpuscular Hemoglobin 29.6 pg (27-33); Mean Corpuscular Volume 97.3 fl (85-98); Mean Platelet Volume 9.2 fL (7.4-10.4); Monocytes # 0.4 10^3/uL (0.2-0.9); Monocytes % 6.6 %; Neutrophils # 4.25 10^3/uL (1.8-7.7); Neutrophils % 74.4 %; Nucleated Red Blood Cells % 0 %; Platelet Count 204 10^3/cmm (157-399); Red Blood Count 3.72 10^6/uL (3.85-5.65); Red Cell Distribution Width 13.8 % (12.1-15.1); White Blood Count 5.72 10^3/uL (3.29-11.43)
[2023-08-23] MEDS: fentaNYL 50 mcg/mL INJ 2mL IVP (14:26)
[2023-08-23 14:28] LABS: INR 1.05 (0.8-1.2); Partial Thromboplastin Time 29.4 SECONDS (23.9-36.7)
--- NOTE | 2023-08-23 14:34 | P.HP_ITS ---
Providers/Chief Complaint 2 Primary Care Provider: Charity Salazar MD Chief Complaint: hip pain History of Present Illness Niki Agosto is a 63 year old female with past medical history of multiple spinal fusions, chronic hypertension, anxiety depression, hypothyroidism, presented to the hospital with left hip pain x 2 weeks. She had hardware removed 2 weeks ago and stated that she has had increasingly worsening hip pain since then. Her primary concern was that she could not ambulate. Denied distal numbness or paresthesias. Hydrocodone was not helping either. Hip x-ray was obtained which showed no acute fracture. MRI of pelvis was recommended. There was redemonstration of changes consistent with prior fusion in the sacrum. There is lucency around visualized sacral hardware raising concern for loosening. Recommend clinical correlation. Surgical hardware through the right and left sacroiliac joints has been removed. Patient's case was discussed with Dr. Stoll over the phone and patient was discharged home to have MRI done and follow-up with Dr. Stoll as an outpatient. Gabapentin was also started. Today however she returns to the hospital with left hip pain and unable to ambulate. MRI outpatient done could not be performed. Patient unable to take even 10 steps due to severe pain. CT hip obtained today shows acute trochanteric to subtrochanteric fracture left hip. Fracture extends to involve the lesser trochanter. Marked valgus deformity. Mild soft tissue edema. Variable density along the fracture site may be due to some medullary hemorrhage. Dr. Zhu consulted from ER. Patient will be admitted at this time. Medications/Allergies Home Medications Medication Instructions Recorded Confirmed Last Taken Type levothyroxine 50 mcg capsule 50 mcg PO DAILY 07/04/19 08/23/23 08/23/23 History baclofen 20 mg tablet 20 mg PO QID PRN spasms 30 days 05/30/20 08/23/23 01/12/22 09:15 Rx #120 tabs duloxetine 30 mg capsule,delayed 60 mg PO DAILY 09/10/20 08/23/23 08/23/23 History release (Cymbalta) oxybutynin chloride 5 mg tablet See Rx Instructions .Route .COMPLEX 05/23/21 08/23/23 08/23/23 History oxybutynin chloride 10 mg 10 mg PO QPM 10/06/21 08/23/23 08/23/23 History tablet,extended release 24 hr alendronate 10 mg tablet 10 mg PO Q7D 01/09/22 08/23/23 08/21/23 History temazepam 15 mg capsule (Restoril) 15 mg PO BEDTIME 01/09/22 08/23/23 08/22/23 History Bone Growth Stimulator E0748 #1 ea 01/12/22 08/23/23 Unknown Rx celecoxib 200 mg capsule 200 mg PO DAILY 07/26/23 08/23/23 08/23/23 History doxylamine succinate 25 mg tablet 25 mg PO Q6H PRN Insomnia 07/26/23 08/23/23 Unknown History lisinopril 10 mg tablet 10 mg PO DAILY 07/26/23 08/23/23 08/23/23 History omeprazole 40 mg capsule,delayed 40 mg PO DAILY 07/26/23 08/23/23 08/23/23 History release propranolol 40 mg tablet 40 mg PO BID 07/26/23 08/23/23 08/23/23 History ropinirole 0.5 mg tablet 0.5 mg PO BID 07/26/23 08/23/23 08/23/23 History hydrocodone 10 mg-acetaminophen 1 tab PO Q4H PRN pain 7 days #40 08/18/23 08/23/23 08/23/23 Rx 325 mg tablet tabs gabapentin 300 mg capsule 300 mg PO DAILY PRN pain #10 caps 08/20/23 08/23/23 08/23/23 Rx albuterol sulfate 90 mcg/actuation 2 puff inhalation Q4H PRN 08/23/23 08/23/23 Unknown History aerosol inhaler Shortness Of Breath Or Wheezing sumatriptan succinate 100 mg tablet 100 mg PO DAILY PRN Migraine 08/23/23 08/23/23 Unknown History Headache Allergies Allergy/AdvReac Type Severity Reaction Status Date / Time Penicillins Allergy RASH Verified 08/23/23 13:23 Sulfa (Sulfonamide Allergy ANAPHYLAXIS Verified 08/23/23 13:23 Antibiotics) PFSH Acute 2 PFSH: Medical History At risk for polypharmacy Altered mental status Chronic hypertension Diagnosed at the age of 14 and controlled on medication managed by primary care provider. Anxiety and depression Currently on Cymbalta managed by her primary care provider. Hypothyroid Currently on levothyroxine managed by PMD No pertinent past medical history Denies: hypertension, diabetes, heart, lung, liver, kidney, thyroid, genital herpes, bleeding problems, or clotting problems. her primary care provider is Dr. Salazar Chronic low back pain without sciatica Currently on hydrocodone and baclofen managed by the pain clinic Surgical History History of back surgery 10/2020---jef placed in back S/P breast biopsy 2000-left breast-benign History of dental surgery tooth extraction Hx of section 03/26/89 History of ankle surgery 2006--LEFT x3. In [place] Family History Mother Family history of thyroid problem Thyroid disease Diabetes Hypertension Father Brain aneurysm Denies family history of Colon cancer Ovarian cancer DVT (deep venous thrombosis) Heart disease Breast cancer Suicide Pulmonary embolism Uterine cancer Social History Smoking and tobacco/nicotine status: never used tobacco/nicotine Substance/Drug Use: never Vitals/I&O/Wt Last Vital Signs Temp 98.4 F 08/23/23 12:53 Pulse 82 08/23/23 13:23 Resp 16 08/23/23 14:26 BP 151/84 08/23/23 13:23 Pulse Ox 94 08/23/23 14:26 O2 Del Method Room Air 08/23/23 13:23 Weight last 48 hrs Weight 104.326 kg Physical Exam 2 Narrative: General: Alert oriented x3, patient seen laying in bed appearing uncomfortable due to pain. On 2 L nasal cannula which is her baseline at home. HEENT: Normocephalic, atraumatic, EOMI, breathing normally Cardio: Regular rate rhythm, normal S1-S2 Respiratory: Clear to auscultation bilaterally GI: Abdomen soft, nontender, nondistended, bowel sounds + Extremities: Left leg externally rotated shortened, bilateral extremities quite swollen, lower extremities erythematous, left hip area also swollen. Data 08/24/23 05:22 08/24/23 05:22 A&P Assessment and plan (1) Left hip pain: (2) Closed fracture of left hip: (3) S/P spinal fusion: (4) Anemia: (5) Pre-op evaluation: Plan #Left hip pain secondary to left acute trochanteric fracture #History of multiple spinal fusions #Hypertension #Anxiety, depression #Hypothyroidism ? Check baseline chest x-ray preop ? Check preop EKG?sinus rhythm ? Check preop labs CBC, CMP, PT/INR ? Pain control. Morphine 4 mg every 4 hours IV as needed ? Hold alendronate. ? Continue duloxetine, levothyroxine, lisinopril ? Continue propranolol ? Continue Protonix ? N.p.o. at midnight except meds for surgical intervention in a.m. ? Consult orthopedic surgery. ? PT OT ? Patient will require DVT prophylaxis postop x 30 days ? Patient is on baseline 2 L nasal cannula at home. Previous echo in 2021 notes diastolic dysfunction. She states that she has been on oxygen since her last surgery. Does not take any diuretics and denies a history of COPD. Full code Lovenox 40 daily Attestations 2 Medical Necessity Statement*: Will cross greater than 2 midnight stay for management of left hip fracture Diagnoses Left hip pain M25.552 Closed fracture of left hip S72.002A S/P spinal fusion Z98.1 Anemia D64.9 Pre-op evaluation Z01.818
[2023-08-23 14:39] LABS: Alanine Aminotransferase 12 U/L (0-33); Alkaline Phosphatase 118 U/L (35-105); Anion Gap 12.8 (5-19); Aspartate Amino Transferase 21 U/L (0-32); Blood Urea Nitrogen 15 mg/dL (8-23); Calcium 8.9 mg/dL (8.5-10.5); Carbon Dioxide 29 mmol/L (22-29); Chloride 105 mmol/L (98-107); Creatinine Clr Calc Pharmacy 87.0922; Globulin 3.3 g/dL (1.3-4.6); Glomerular Filtration Rate 100.3 mL/min (90-130); Glucose 117 mg/dL (65-115); Osmolality Calculated 296 mOsm/kg (285-295); Potassium 4.8 mmol/L (3.5-5.1); Sodium 142 mmol/L (136-145); Total Bilirubin 0.4 mg/dL (0.15-1.2); Total Protein 7.3 g/dL (6.6-8.7)
[2023-08-23] MEDS: sodium chloride 0.9% 1,000 ML 75 ML IV (15:54)
[2023-08-23] MEDS: enoxaparin 40 mg/0.4 mL Syringe SUBCUT (15:56)
[2023-08-23] MEDS: HYDROmorphone 1 mg/mL INJ 1 mL IVP ×2 (16:36→20:28)
[2023-08-23] MEDS: propranolol 40 mg Tablet PO (17:16)
--- NOTE | 2023-08-23 17:57 | P.CONIM_ITS ---
Providers/Reason For Consult 2 Consulting Physician/Specialty*: Adriana Zhu MD Reason for Consult*: Left subtrochanteric hip fracture Requesting Physician: Dr. Champ Palma Attending Physician: Anabel Gregory MD Primary Care Provider: Charity Salazar MD History of Present Illness History of Present Illness Niki Agosto is a 63 year old female who presented to the emergency department today, August 23, 2023, with complaints of left hip pain and inability to ambulate. The patient had been seen 2 to 3 days ago in the emergency department where hip x-rays were noted to be negative. An MRI of the pelvis was recommended, however today, the patient presents denying trauma with inability to ambulate. Upon presentation to the emergency department, she was found to have an acute 90 degree angulated subtrochanteric hip fracture. I was consulted from the emergency department. The patient is noted to have no significant history of prior cancer. Upon further questioning, the patient had a history of Fosamax use. On my discussion with her, she has been taking it for 10 years. Review of Systems 2 Const: Denies: fever(s) Eyes: Denies: photophobia ENMT: Denies: enlarged tonsils Card: Denies: chest pain Resp: Denies: dyspnea GI: Denies: abdominal pain : Denies: dysuria, urinary frequency or urinary urgency Musc: Denies: neck pain, back pain or joint warmth Skin/Breast: Denies: rash All/Imm: Denies: acute wheezing Medications/Allergies Home Medications Medication Instructions Recorded Confirmed Last Taken Type levothyroxine 50 mcg capsule 50 mcg PO DAILY 07/04/19 08/23/23 08/23/23 History baclofen 20 mg tablet 20 mg PO QID PRN spasms 30 days 05/30/20 08/23/23 01/12/22 09:15 Rx #120 tabs duloxetine 30 mg capsule,delayed 60 mg PO DAILY 09/10/20 08/23/23 08/23/23 History release (Cymbalta) oxybutynin chloride 5 mg tablet See Rx Instructions .Route .COMPLEX 05/23/21 08/23/23 08/23/23 History oxybutynin chloride 10 mg 10 mg PO QPM 10/06/21 08/23/23 08/23/23 History tablet,extended release 24 hr alendronate 10 mg tablet 10 mg PO Q7D 01/09/22 08/23/23 08/21/23 History temazepam 15 mg capsule (Restoril) 15 mg PO BEDTIME 01/09/22 08/23/23 08/22/23 History Bone Growth Stimulator E0748 #1 ea 01/12/22 08/23/23 Unknown Rx celecoxib 200 mg capsule 200 mg PO DAILY 07/26/23 08/23/23 08/23/23 History doxylamine succinate 25 mg tablet 25 mg PO Q6H PRN Insomnia 07/26/23 08/23/23 Unknown History lisinopril 10 mg tablet 10 mg PO DAILY 07/26/23 08/23/23 08/23/23 History omeprazole 40 mg capsule,delayed 40 mg PO DAILY 07/26/23 08/23/23 08/23/23 History release propranolol 40 mg tablet 40 mg PO BID 07/26/23 08/23/23 08/23/23 History ropinirole 0.5 mg tablet 0.5 mg PO BID 07/26/23 08/23/23 08/23/23 History hydrocodone 10 mg-acetaminophen 1 tab PO Q4H PRN pain 7 days #40 08/18/23 08/23/23 08/23/23 Rx 325 mg tablet tabs gabapentin 300 mg capsule 300 mg PO DAILY PRN pain #10 caps 08/20/23 08/23/23 08/23/23 Rx albuterol sulfate 90 mcg/actuation 2 puff inhalation Q4H PRN 08/23/23 08/23/23 Unknown History aerosol inhaler Shortness Of Breath Or Wheezing sumatriptan succinate 100 mg tablet 100 mg PO DAILY PRN Migraine 08/23/23 08/23/23 Unknown History Headache Allergies Allergy/AdvReac Type Severity Reaction Status Date / Time Penicillins Allergy RASH Verified 08/23/23 13:23 Sulfa (Sulfonamide Allergy ANAPHYLAXIS Verified 08/23/23 13:23 Antibiotics) Current Medications Generic Name Dose Route Start Last Admin Trade Name Freq PRN Reason Stop Dose Admin Enoxaparin Sodium 40 mg 08/23/23 15:00 08/23/23 15:56 Enoxaparin 40 Mg/0.4 Ml Syringe SUBCUT 40 mg Q24H VERONICA Administration Sodium Chloride 1,000 mls @ 75 mls/hr 08/23/23 15:00 03/11/24 15:54 Sodium Chloride 0.9% IV 75 mls/hr .[id number] VERONICA Administration Propranolol HCl 40 mg 08/23/23 18:00 08/23/23 17:16 Propranolol 40 Mg Tablet PO 40 mg BID VERONICA Administration PFSH Acute 2 PFSH: Medical History At risk for polypharmacy Altered mental status Chronic hypertension Diagnosed at the age of 14 and controlled on medication managed by primary care provider. Anxiety and depression Currently on Cymbalta managed by her primary care provider. Hypothyroid Currently on levothyroxine managed by PMD No pertinent past medical history Denies: hypertension, diabetes, heart, lung, liver, kidney, thyroid, genital herpes, bleeding problems, or clotting problems. her primary care provider is Dr. Salazar Chronic low back pain without sciatica Currently on hydrocodone and baclofen managed by the pain clinic Surgical History History of back surgery 10/2020---jef placed in back S/P breast biopsy 2000-left breast-benign History of dental surgery tooth extraction Hx of section 03/26/89 History of ankle surgery 2006--LEFT x3. In [place] Family History Mother Family history of thyroid problem Thyroid disease Diabetes Hypertension Father Brain aneurysm Denies family history of Colon cancer Ovarian cancer DVT (deep venous thrombosis) Heart disease Breast cancer Suicide Pulmonary embolism Uterine cancer Social History Smoking and tobacco/nicotine status: never used tobacco/nicotine Substance/Drug Use: never Dietary Habits: Current diet type/program: regular Caffeine: Yes Caffeine intake frequency: tea Safety: Seatbelt use: always Drive intoxicated or ride with intoxicated inventory associate and driver?: never Home Safety: Working smoke detector in home: Yes Fire extinguisher in home: No Carbon monoxide detector in home: No Firearms in home: Yes Firearms unloaded and locked?: No Vitals/I&O/Wt Last Vital Signs Temp 97.0 F L 08/23/23 16:53 Pulse 100 08/23/23 16:53 Resp 19 H 08/23/23 16:53 BP 157/98 08/23/23 16:53 Pulse Ox 97 08/23/23 16:53 O2 Del Method Nasal Cannula 08/23/23 16:53 O2 Flow Rate 2 08/23/23 16:00 Weight last 48 hrs Weight 230 lb Weight 230 lb Physical Exam 2 Const: COMMON NORMALS: no acute distress, average body habitus, patient oriented x3 and alert GENERAL APPEARANCE: cooperative and comfortable O RIENTATION/CONSCIOUSNESS: Yes awake HENMT: COMMON NORMALS: normocephalic and atraumatic HEAD & SCALP: n ormocephalic and atraumatic Eye: GENERAL EYE: appearance normal, both eyes and all related structures Chest: COMMONS NORMALS: normal inspection of the chest Resp: COMMON NORMALS: normal respiratory effort EFFORT & INSPECTION: Yes able to speak in complete sentences and Yes symmetric chest movement Extremity: LEFT LOWER EXTREMITY: Yes hip joint Left hip: Yes inspection (No significant ecchymosis.), Yes palpation (Pain with palpation), Yes ROM (Not evaluated secondary to fracture), Yes neurovascular exam (Intact distally) and Yes other (Bilateral lower extremity swelling and redness below the knee) Neuro: COMMON NORMALS: patient oriented x3 SENSORIUM/ORIENTATION: Yes alert Psych: COMMON NORMALS: mental status grossly normal APPEARANCE: Yes grossly normal ATTITUDE: Yes calm and Yes engaged ATTENTION/CONCENTRATION: Yes attention grossly intact Skin: COMMON NORMALS: no rashes or lesions noted GENERAL SKIN EXAM: no rashes or lesions noted Urinary Catheter Management: Portillo: Cath Placed During This Visit: yes Urinary Catheter Date of Insertion: 08/23/23 Urinary Catheter Time of Insertion: 17:15 Data 08/24/23 05:22 08/24/23 05:22 Xray Ortho: My impression: AP pelvis was obtained for intraoperative views. There is a subtrochanteric hip fracture which is 90 degrees angulated with significant shortening. There is no evidence of lytic lesion at the site of the fracture. This is felt to be most consistent with Fosamax fracture pattern. Other CT: My impression: CT was reviewed. The patient has a subtrochanteric hip fracture with 90 degrees of angulation. Upon looking at the fracture, there is no evidence of lysis or blastic change at the fracture site. There is no significant reason for concern of metastatic disease. The location of the fracture is felt to most likely be related to the patient's 10-year Fosamax usage. A&P Assessment and plan (1) Subtrochanteric fracture of left femur: The patient was admitted through the emergency department today with complaints of left hip pain and inability to ambulate. The patient notes that she had had hip pain prior to her presentation today. In fact, she presented to the emergency department a couple days ago, and x-rays were noted to be negative. An MRI had been recommended, but the patient had not had time to obtain this. Imaging today upon presentation to the emergency department demonstrated a displaced subtrochanteric hip fracture. Given the pattern of the fracture and no evidence of lysis or blastic change at the site of the fracture, it was felt that this was likely related to the patient's long-term Fosamax use. By report, the patient has no history of cancer which would be concerning for metastatic disease. Additionally, upon talking with the patient, she has used her Fosamax for approximately 10 years, and currently she is also complaining of right hip pain which is beginning similar to the presenting symptoms for her left hip. For this reason, we will obtain a bone scan to determine whether or not she has reactive change in the subtrochanteric area so that we could prophylactically nail the opposite hip. We will proceed with surgery tomorrow for the left hip, and further workup will then be obtained. In addition, the patient has a history of bilateral lower extremity swelling. She has swelling in her feet with redness consistent with possibly cellulitis or possibly inflammatory disease. Her hands are also swollen with some redness. She notes that she has had the symptoms ongoing as well. We will obtain an inflammatory panel during this hospitalization to determine possible inflammatory processes. Qualifiers: Encounter type: initial encounter Fracture type: closed Fracture alignment: displaced Qualified Code(s): S72.22XA - Displaced subtrochanteric fracture of left femur, initial encounter for closed fracture (2) Acute right hip pain: (3) Bilateral edema of lower extremity: Coding Level of Care Code Acute Code for Chg Fwd Diagnoses Closed displaced subtrochanteric fracture of left femur, initial encounter S72.22XA Encounter type: initial encounter Fracture type: closed Fracture alignment: displaced Acute right hip pain M25.551 Bilateral edema of lower extremity R60.0
[2023-08-23 18:27] LABS: Add Urine Microscopic? NO; Charge for UA Resulting for Rev
[2023-08-23 18:30] LABS: Urine Appearance Clear (CLEAR); Urine Color Yellow (Yellow)
[2023-08-23 18:31] LABS: Bilirubin Urine Neg (Negative); Blood Urine Neg (Negative); Glucose Urine UA Norm (Normal); Ketones Urine 1+ (Negative); Leukocyte Esterase Urine Negative (Negative); Nitrate Urine Negative (Negative); Protein Urine Neg (Negative); Specific Gravity, Urine 1.015 (1.005-1.030); Urobilinogen Urine Norm (Negative); pH Urine 6 (5-7)
[2023-08-23] MEDS: SUMAtriptan 25 mg Tablet 100 MG PO (21:27)
[2023-08-23] MEDS: vancomycin 1,500 MG/300 ML PIGGYBACK 200 MG IV (21:30)
[2023-08-24] VITALS (28 sets, daily range): BP systolic 106–149; BP diastolic 68–93; PULSE 62–89; RESP 12–20; TEMP 36.3–37.3; O2SAT 91–100
--- NOTE | 2023-08-24 | XR_ITS ---
WS: [id number] INTRAOPERATIVE TECHNIQUE: 5 Spot fluoroscopic images for intraoperative purposes. FLUOROSCOPY TIME: 205.3 seconds CLINICAL INFORMATION: OR PICS FINDINGS: Intramedullary jef and screw fixation LEFT intertrochanteric hip fracture. Femoral jef extends to the distal femur. Hardware appears in good position. IMPRESSION: Images obtained for intraoperative purposes.
[2023-08-24] MEDS: HYDROmorphone 1 mg/mL INJ 1 mL IVP ×5 (01:53→22:17)
[2023-08-24] MEDS: sodium chloride 0.9% 1,000 ML 75 ML IV ×2 (04:46→20:44)
[2023-08-24 06:08] LABS: INR 1.11 (0.8-1.2)
[2023-08-24 06:28] LABS: Alanine Aminotransferase 10 U/L (0-33); Albumin Level 3.4 g/dL (3.5-5.2); Alkaline Phosphatase 103 U/L (35-105); Anion Gap 10.4 (5-19); Aspartate Amino Transferase 18 U/L (0-32); Blood Urea Nitrogen 7 mg/dL (8-23); Calcium 8.8 mg/dL (8.5-10.5); Carbon Dioxide 29 mmol/L (22-29); Chloride 106 mmol/L (98-107); Creatinine Clr Calc Pharmacy 87.4938; Globulin 2.9 g/dL (1.3-4.6); Glomerular Filtration Rate 160.2 mL/min (90-130); Glucose 139 mg/dL (65-115); Osmolality Calculated 292 mOsm/kg (285-295); Potassium 4.4 mmol/L (3.5-5.1); Sodium 141 mmol/L (136-145); Total Bilirubin 0.6 mg/dL (0.15-1.2); Total Protein 6.3 g/dL (6.6-8.7)
[2023-08-24] MEDS: levothyroxine 50 mcg Tablet PO (08:35)
[2023-08-24] MEDS: pantoprazole 40 mg SDV IVP (08:35)
[2023-08-24] MEDS: propranolol 40 mg Tablet PO ×2 (08:35→18:06)
[2023-08-24] MEDS: vancomycin 1,500 MG/300 ML PIGGYBACK 200 MG IV ×2 (08:36→22:34)
[2023-08-24] MEDS: morphine 4 mg/mL SDV 1 mL 2 MG IVP (08:44)
[2023-08-24 09:18] LABS: Basophils % 0.7 %; Eosinophils # 0.1 10^3/uL (0.0-0.8); Eosinophils % 1.1 %; Hematocrit 33.7 % (36-47); Lymphocytes # 1.1 10^3/uL (0.8-4.8); Lymphocytes % 19.6 %; Mean Corpuscular HGB Conc 30.3 g/dL (30-55); Mean Corpuscular Hemoglobin 29.7 pg (27-33); Mean Corpuscular Volume 98.3 fl (85-98); Mean Platelet Volume 10.5 fL (7.4-10.4); Monocytes # 0.6 10^3/uL (0.2-0.9); Monocytes % 10.2 %; Neutrophils # 3.75 10^3/uL (1.8-7.7); Nucleated Red Blood Cells % 0 %; Platelet Count 212 10^3/cmm (157-399); Red Blood Count 3.43 10^6/uL (3.85-5.65); White Blood Count 5.51 10^3/uL (3.29-11.43)
--- NOTE | 2023-08-24 09:25 | PC.CHAP ---
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 hypnotherapist visit [] Patient/Family/Request visit [] Outpatient visit [] Follow-up visit [] Physician referral [] Code/Alert [x] Routine visit [] Staff referral [] Actively dying [] Patient sleeping [] Family support [] [] Out of room [] Palliative care [] [] Receiving care in room [] Pre-surgical visit [] Trauma [] Long length of stay [] ICU visit [] Other: Relational/Emotional Strength [x] Patient feels connected with others/family/visitors/staff [] Distress [] Loneliness/isolation [] Abandonment Spirituality of Patient [x] Person of Dayanna [] Attends Voodoo of their Dayanna [x] Believes in Prayer [] Reads Bible or Hinduism materials [] There are Spiritual issues to be addressed Dinkey Engine [employer]ic Interventions [x] Prayer [x] Active listening [] Non-anxious presence [x] Spiritual/emotional support [] Crisis/trauma care [] Spiritual counseling [] Bereavement support [] Provided bereavement packet [] Provided Bible/devotional materials [] Provided toy/stuffed animal, coloring book to patient or family member [] Provided Communion [] Anointing/[place] [] Salvation [x] Completed spiritual assessment [] Other: Impact on Illness or Injury [] Angry [] Fearful [] Anxious [] Often cries [] Exhaustion [] Unable to work [] Unable to attend rastafarian [] Unable to walk/stand [] Unable to read [] Unable to drive [] Unable to eat/drink [] Unable to sleep [] Unable to be with family [] Patient intubated [] Other: Summary Time spent with patient 5 min
[2023-08-24] MEDS: aztreonam 1,000 MG in sodium chloride 0.9% (plus) 50 ML 100 MG IV ×2 (10:41→22:19)
--- NOTE | 2023-08-24 11:53 | ANES.PREANE2 ---
Pre-Anesthetic Assessment Height/Weight: Height 1.7 m Weight 105.233 kg Temp Pulse Resp BP Pulse Ox O2 Del Method O2 Flow Rate 98.3 F 73 18 144/93 97 Nasal Cannula 3 08/24/23 11:51 08/24/23 11:51 08/24/23 11:51 08/24/23 11:51 08/24/23 11:51 08/24/23 11:51 08/24/23 11:51 Operation Date: 08/24/23 12:15 Proposed Procedures p Trochanteric Femoral Nail(Left) - Adriana Zhu MD Familial anesthetic complications: i was loopy coming out of the last surgery Was Beta Sandie taken within 24 hours: Yes Was Clonidine taken within 24 hours: N/A Last intake: Intake Last Liquid Date 08/23/23 Last Liquid Time 23:00 Last Solid Date 08/23/23 Last Solid Time 18:00 Social No alcohol and No tobacco Exam alert, oriented x 3, clear to auscultation bilaterally and regular rate & rhythm Airway Mallampati: Class I Dentition: chipped and other (crown) CV/HEM Hypertension GI Gastroesophageal Reflux Disease Metabolic Thyroid Disease Anesthetic Plan ASA status: 3 Anesthesia: General Risk of > 500 ml blood loss (7ml/kg in children): No Medications/Allergies Home Medications Medication Instructions Recorded Confirmed Last Taken Type levothyroxine 50 mcg capsule 50 mcg PO DAILY 07/04/19 08/23/23 08/23/23 History baclofen 20 mg tablet 20 mg PO QID PRN spasms 30 days 05/30/20 08/23/23 01/12/22 09:15 Rx #120 tabs duloxetine 30 mg capsule,delayed 60 mg PO DAILY 09/10/20 08/23/23 08/23/23 History release (Cymbalta) oxybutynin chloride 5 mg tablet See Rx Instructions .Route .COMPLEX 05/23/21 08/23/23 08/23/23 History oxybutynin chloride 10 mg 10 mg PO QPM 10/06/21 08/23/23 08/23/23 History tablet,extended release 24 hr alendronate 10 mg tablet 10 mg PO Q7D 01/09/22 08/23/23 08/21/23 History temazepam 15 mg capsule (Restoril) 15 mg PO BEDTIME 01/09/22 08/23/23 08/22/23 History Bone Growth Stimulator E0748 #1 ea 01/12/22 08/23/23 Unknown Rx celecoxib 200 mg capsule 200 mg PO DAILY 07/26/23 08/23/23 08/23/23 History doxylamine succinate 25 mg tablet 25 mg PO Q6H PRN Insomnia 07/26/23 08/23/23 Unknown History lisinopril 10 mg tablet 10 mg PO DAILY 07/26/23 08/23/23 08/23/23 History omeprazole 40 mg capsule,delayed 40 mg PO DAILY 07/26/23 08/23/23 08/23/23 History release propranolol 40 mg tablet 40 mg PO BID 07/26/23 08/23/23 08/23/23 History ropinirole 0.5 mg tablet 0.5 mg PO BID 07/26/23 08/23/23 08/23/23 History hydrocodone 10 mg-acetaminophen 1 tab PO Q4H PRN pain 7 days #40 08/18/23 08/23/23 08/23/23 Rx 325 mg tablet tabs gabapentin 300 mg capsule 300 mg PO DAILY PRN pain #10 caps 08/20/23 08/23/23 08/23/23 Rx albuterol sulfate 90 mcg/actuation 2 puff inhalation Q4H PRN 08/23/23 08/23/23 Unknown History aerosol inhaler Shortness Of Breath Or Wheezing sumatriptan succinate 100 mg tablet 100 mg PO DAILY PRN Migraine 08/23/23 08/23/23 Unknown History Headache Allergies Allergy/AdvReac Type Severity Reaction Status Date / Time Penicillins Allergy RASH Verified 08/23/23 13:23 Sulfa (Sulfonamide Allergy ANAPHYLAXIS Verified 08/23/23 13:23 Antibiotics) Current Medications Generic Name Dose Route Start Last Admin Trade Name Freq PRN Reason Stop Dose Admin Duloxetine HCl 60 mg 08/24/23 09:00 08/24/23 08:42 Duloxetine 30 Mg Capsule PO Not Given DAILY VERONICA Enoxaparin Sodium 40 mg 08/23/23 15:00 08/23/23 15:56 Enoxaparin 40 Mg/0.4 Ml Syringe SUBCUT 40 mg Q24H VERONICA Administration Hydromorphone HCl 1 mg 08/23/23 16:40 08/24/23 10:41 Hydromorphone 1 Mg/Ml Inj 1 Ml IVP 1 mg Q4H PRN Administration SEVERE PAIN Sodium Chloride 1,000 mls @ 75 mls/hr 08/23/23 15:00 08/24/23 04:46 Sodium Chloride 0.9% IV 75 mls/hr .[id number] VERONICA Administration Vancomycin/PEG/NADA/Lysine/Water 1,500 mg in 300 mls @ 200 mls/hr 08/23/23 21:00 08/24/23 10:32 Vancocin IV Infused Q12H VERONICA Infusion Aztreonam 1,000 mg/ Sodium 50 mls @ 100 mls/hr 08/24/23 09:45 08/24/23 10:41 Chloride IV 100 mls/hr Q12H VERONICA Administration Protocol Levothyroxine Sodium 50 mcg 08/24/23 09:00 08/24/23 08:35 Levothyroxine 50 Mcg Tablet PO 50 mcg DAILY VERONICA Administration Lidocaine 1 patch 08/24/23 09:00 08/24/23 08:42 Lidocaine 5% Patch TOPICAL Not Given [id number] VERONICA Pantoprazole Sodium 40 mg 08/24/23 09:00 08/24/23 08:35 Pantoprazole 40 Mg Sdv IVP 40 mg DAILY VERONICA Administration Propranolol HCl 40 mg 08/23/23 18:00 08/24/23 08:35 Propranolol 40 Mg Tablet PO 40 mg BID VERONICA Administration Sumatriptan Succinate 100 mg 08/23/23 19:54 08/23/23 21:27 Sumatriptan 25 Mg Tablet PO 100 mg DAILY PRN Administration MIGRAINE HEADACHE PFSH Anesthesia Medical History At risk for polypharmacy Altered mental status Chronic hypertension Diagnosed at the age of 14 and controlled on medication managed by primary care provider. Anxiety and depression Currently on Cymbalta managed by her primary care provider. Hypothyroid Currently on levothyroxine managed by PMD No pertinent past medical history Denies: hypertension, diabetes, heart, lung, liver, kidney, thyroid, genital herpes, bleeding problems, or clotting problems. her primary care provider is Dr. Salazar Chronic low back pain without sciatica Currently on hydrocodone and baclofen managed by the pain clinic Surgical History History of back surgery 10/2020---jef placed in back S/P breast biopsy 2000-left breast-benign History of dental surgery tooth extraction Hx of section 03/26/89 History of ankle surgery 2006--LEFT x3. In [place] Family History Mother Family history of thyroid problem Thyroid disease Diabetes Hypertension Father Brain aneurysm Denies family history of Colon cancer Ovarian cancer DVT (deep venous thrombosis) Heart disease Breast cancer Suicide Pulmonary embolism Uterine cancer Social History Smoking and tobacco/nicotine status: never used tobacco/nicotine Substance/Drug Use: never Data Anesthesia 08/24/23 05:22 08/24/23 05:22 Short CBC 08/23/23 08/24/23 Range/Units 14:05 05:22 WBC 5.72 5.51 (3.29-11.43) 10^3/uL Hgb 11.00 L 10.20 L (11.27-16.99) g/dL Hct 36.2 33.7 L (36-47) % MCV 97.3 98.3 H (85-98) fl Plt Count 204 212 (157-399) 10^3/cmm Neut % (Auto) 74.4 68.0 % Neut # (Auto) 4.25 3.75 (1.8-7.7) 10^3/uL BMP 08/23/23 08/24/23 14:05 05:22 Sodium 142 141 Potassium 4.8 4.4 Chloride 105 106 Carbon Dioxide 29 29 BUN 15 7 L Creatinine 0.6 0.4 L Glucose 117 H 139 H Calcium 8.9 8.8 Liver Function 08/23/23 08/24/23 Range/Units 14:05 05:22 Total Bilirubin 0.4 0.6 (0.15-1.2) mg/dL AST 21 18 (0-32) U/L ALT 12 10 (0-33) U/L Alkaline Phosphatase 118 H 103 (35-105) U/L Albumin 4.0 3.4 L (3.5-5.2) g/dL Urine 08/23/23 Range/Units 15:13 Urine Color Yellow (Yellow) Urine Appearance Clear (CLEAR) Urine pH 6 (5-7) Ur Specific [place] 1.015 (1.005-1.030) Urine Protein Neg (Negative) Urine Glucose (UA) Norm (Normal) Urine Ketones 1+ H (Negative) Urine Nitrate Negative (Negative) Urine Bilirubin Neg (Negative) Ur Leukocyte Esterase Negative (Negative) Coags 08/23/23 08/24/23 14:05 05:22 PT 14.00 14.70 INR 1.05 1.11 APTT 29.4 Cardiac Studies: Echocardiogram 01/12/22
[2023-08-24] MEDS: sodium chloride 0.9% 1,000 ML 30 ML IV (11:58)
[2023-08-24] MEDS: ketorolac 30 mg/mL INJ IVP (12:00)
[2023-08-24] MEDS: gabapentin 300 mg Capsule PO (12:03)
--- NOTE | 2023-08-24 12:24 | P.PN_ITS ---
Subjective 2 Subjective: Seen this morning Dilaudid alternated with morphine is working better for her pain control. She states she might have a bowel movement prior to surgery however is not sure how she will be able to do it since she cannot even move due to the pain. I offered her bedpan along with nurse present in the room. She again says that she has been on 2 L nasal cannula since her previous surgery. Denies a history of heart failure or COPD. She says she herself is unsure why she is on oxygen. She says she feels better using it. There is no documented saturation from home that would indicate that she truly was hypoxic or not. Saturating 97% on 3 L nasal cannula at this time. Vitals/I&O/Wt Last Vital Signs Temp 98.3 F 08/24/23 11:51 Pulse 73 08/24/23 11:51 Resp 18 08/24/23 11:51 BP 144/93 08/24/23 11:51 Pulse Ox 97 08/24/23 11:51 O2 Del Method Nasal Cannula 08/24/23 11:51 O2 Flow Rate 3 08/24/23 11:51 08/23/23 08/24/23 08/24/23 22:59 06:59 14:59 Intake Total 1265 / 1265 300 / 300 Output Total 2750 / 2750 Balance -1485 / -1485 300 / 300 Weight last 48 hrs Weight 105.233 kg Weight 105.233 kg Weight 104.326 kg Weight 104.326 kg Physical Exam 2 Narrative: General: Alert oriented x3, patient seen laying in bed appearing somewhat comfortable at this time. On 3 L nasal cannula which is her baseline at home. HEENT: Normocephalic, atraumatic, EOMI, breathing normally Cardio: Regular rate rhythm, normal S1-S2 Respiratory: Clear to auscultation bilaterally GI: Abdomen soft, nontender, nondistended, bowel sounds + Extremities: Left leg externally rotated shortened and a Band-Aid,, bilateral extremities quite swollen, lower extremities erythematous however improved compared to yesterday left hip area also swollen. Compression stocking on right leg. Urinary Catheter Management: Portillo: Cath Placed During This Visit: yes Reason for Continuing Indwelling Catheter: Other Urinary Catheter Date of Insertion: 08/23/23 Urinary Catheter Time of Insertion: 17:15 Data 08/24/23 05:22 08/24/23 05:22 A&P Assessment and plan (1) Left hip pain: (2) Closed fracture of left hip: (3) S/P spinal fusion: (4) Anemia: (5) Pre-op evaluation: Plan #Left hip pain secondary to left acute trochanteric fracture #History of multiple spinal fusions #Hypertension #Anxiety, depression #Hypothyroidism #Chronic diastolic heart failure ? Check baseline chest x-ray preop ? Check preop EKG?sinus rhythm ? Check preop labs CBC, CMP, PT/INR ? Pain control. Morphine 4 mg every 2 hours IV as needed, dilaudid 1 mg q4h prn ? Hold alendronate. ? Continue duloxetine, levothyroxine, lisinopril ? Continue propranolol ? Continue Protonix ? N.p.o. at midnight except meds for surgical intervention in a.m. ? Consult orthopedic surgery. ? PT OT ? Patient will require DVT prophylaxis postop x 30 days ? Patient is on baseline 2 L nasal cannula at home. Previous echo in 2021 notes diastolic dysfunction. She states that she has been on oxygen since her last surgery. Does not take any diuretics and denies a history of COPD. ? Patient most likely has chronic diastolic heart failure due to which she is requiring oxygen. ? I will check a BNP. Continue oxygen use 3 L nasal cannula at this time and wean off as able. She denies feeling short of breath at rest or on exertion. However does say she feels better if she uses oxygen. Poor historian. ? She may need Lasix postop. ? I will recheck echocardiogram as last 1 was in 2021. ? Patient scheduled for surgery today around 2 PM. ? Order hydralazine 5 every every 4 hour as needed for high blood pressure ? Hold lisinopril Full code Lovenox 40 daily Attestations 2 Medical Necessity Statement*: going for hip surgery today Diagnoses Left hip pain M25.552 Closed fracture of left hip S72.002A S/P spinal fusion Z98.1 Anemia D64.9 Pre-op evaluation Z01.818
--- NOTE | 2023-08-24 12:29 | USCV_ITS ---
Niki Agosto Age: 63 Gender: F : 1960 Exam Date: 08/24/2023 18:04 Ordering Phys: Anabel Gregory MD Technologist: BERNABE Exam Location: [facility] – [place] Indication: Patient is s/p ORIF LEFT subtrochanteric fx, cannot be moved. All views obtained supine. BP: 121 / 81 HR: 73 Rhythm: Sinus Technical Quality: Adequate MEASUREMENTS (Male / Female) Normal Values 2D ECHO LV Diastolic Diameter PLAX 4.0 cm 4.2 - 5.9 / 3.9 - 5.3 cm IVS Diastolic Thickness 1.2 cm 0.6 - 1.0 / 0.6 - 0.9 cm IVS Systolic Thickness 1.5 cm LVPW Diastolic Thickness 0.9 cm 0.6 - 1.0 / 0.6 - 0.9 cm LVPW Systolic Thickness 1.8 cm LVOT Diameter 2.1 cm LV Ejection Fraction 2D Teich 79.3 % LV Ejection Fraction MOD 2C 67.5 % LV Ejection Fraction 2C AL 69.4 % LA Diameter 2.6 cm Aorta at Sinotubular Diameter 3.4 cm IVC Diameter 1.8 cm M-MODE LA Ao Ratio MM 0.7 AV Cusp Separation MM 1.9 cm DOPPLER AV Peak Velocity 168.0 cm/s LVOT Peak Velocity 99.0 cm/s AV Area Cont Eq vti 2.2 cm squared AV Area Cont Eq pk 2.0 cm squared MV Peak Velocity 86.0 cm/s MV Area PHT 3.1 cm squared Mitral E to A Ratio 0.9 TR Peak Velocity 157.0 cm/s TR Peak Gradient 9.9 mmHg TV Peak E Velocity 40.0 cm/s Right Atrial Pressure 3.0 mmHg Pulmonary Artery Systolic Pressu 12.9 mmHg PV Peak Velocity 102.0 cm/s FINDINGS Left Ventricle Left ventricle is normal in size. LV systolic function is normal with EF of 60-65%. No regional wall motion abnormalities are seen. Grade 1 diastolic dysfunction Right Ventricle Normal in size and function Right Atrium Normal in size Left Atrium Normal in size Mitral Valve Mild mitral annular calcification. Mild mitral regurgitation. Aortic Valve Structurally normal aortic valve. No significant stenosis or regurgitation. Tricuspid Valve Mild tricuspid regurgitation. Insufficient TR jet to calculate RVSP Pulmonic Valve Not well visualized Pericardium Normal Aorta Ascending aorta is dilated with diameter of 3.7 cm. IVC Appears to be normal CONCLUSIONS LV systolic function is normal with EF of 60-65% Grade 1 diastolic dysfunction Mild mitral regurgitation Mild tricuspid regurgitation Ascending aorta is dilated with diameter of 3.7cm Compared to prior echocardiogram from 2021, ascending aorta is mildly dilated now. Jorje Bran MD (Electronically Signed) Final Date: 25 August 2023 11:17 S
[2023-08-24] MEDS: tranexamic acid 1,000 mg/10mL SDV 1000 MG IV (12:54)
[2023-08-24] MEDS: vancomycin 1,000 MG SDV 1000 MG XX (13:43)
[2023-08-24] MEDS: lidocaine-epi 1% 20 mL INJ 12 ML INJECTION (13:44)
[2023-08-24] MEDS: BUPivacaine 0.5% INJ 30 mL 12 ML XX (13:44)
--- NOTE | 2023-08-24 14:50 | P.OP_ITS ---
Operative Report Date of procedure: August 24, 2023 Pre-op diagnosis: Pathologic (Fosamax) Subtrochanteric hip fracture Post-op diagnosis: Pathologic (Fosamax) Subtrochanteric hip fracture Post-op findings: Transverse left subtrochanteric hip fracture Procedure done: Open reduction internal fixation left pathologic subtrochanteric hip fracture Implants: Everest gamma 3 system with a long trochanteric nail left size 13 mm x 420 mm x 125 degrees and a proximal lag screw size 10.5 mm x 110 mm Specimens removed/disposition: None Surgeon: Adriana Zhu MD Special Officer: None Anesthesia: General (Per LMA, ASA 3) Estimated blood loss (mL): 200 IV fluids (mL): 1,150 IV fluids: 900 mL normal saline and 250 mL albumin Urine output (mL): 300 Complications: None Findings: Transverse left subtrochanteric hip fracture Condition: stable Disposition: PACU (Then return to floor for postoperative rehabilitation and pain management) Brief History: Niki Agosto is a 63 year old female who presented to the emergency department today, August 23, 2023, with complaints of left hip pain and inability to ambulate. The patient had been seen 2 to 3 days ago in the emergency department where hip x-rays were noted to be negative. An MRI of the pelvis was recommended, however today, the patient presents denying trauma with inability to ambulate. Upon presentation to the emergency department, she was found to have an acute 90 degree angulated subtrochanteric hip fracture. I was consulted from the emergency department. The patient is noted to have no significant history of prior cancer. Upon further questioning, the patient had a history of Fosamax use. On my discussion with her, she has been taking it for 10 years. Procedure: Patient is brought to the operating theater. After undergoing adequate general anesthesia per LMA, ASA 3, the patient was transferred to the fracture table, positioned on the table and fluoroscopic guidance obtained throughout the surgical procedure. Prior to the commencement of the surgical procedure, a surgical pause was performed. At the time of the surgical pause, we confirmed the site and side of surgery as well as preoperative surgical markings and appropriate and timely administration of IV antibiotics, vancomycin 1500 mg. Availability of equipment was also confirmed. Fluoroscopy was used to confirm the fracture was appropriately reduced in both AP and lateral planes. An incision was then made slightly above the greater trochanter to allow access to the greater trochanter. An awl was used to enter the greater trochanter and a guidewire was subsequently placed. Once the guidewire was confirmed to be in appropriate position in AP and lateral planes, reaming was accomplished over this to allow for the proximal diameter of the nail. Short guidewire was then removed, and a ball-tipped long wire was passed through the fracture to the knee. Appropriate position of the long guidewire was confirmed in AP and lateral planes. Reaming over this long guidewire was accomplished to a 15 mm reamer to allow for placement 13 mm long gamma 3 nail. The size 13 mm x 420 mm x 125 degree gamma 3 trochanteric nail was placed into appropriate position with positioning being confirmed in AP and lateral planes on the x-ray. It passed without difficulty. Guidewire was then passed through the jigging system into the femoral head. We wanted to be center or slightly inferior and posterior to center. Guidewire was placed into appropriate position. Once the guidewire was in appropriate position and this position was confirmed by x-ray, the guidewire was measured and we chose a 110 mm lag screw. We reamed to allow for the lag screw to be placed. The 10.5 mm x 110 mm lag screw was then passed into the fem oral head through the trochanteric nail. This was passed uneventfully and again position was confirmed in AP and lateral planes. Compression was obtained under fluoroscopic guidance. The set screw was then placed in position, tightened completely and subsequently backed off one-quarter turn. The construct was left in position, and attention was directed distally. We confirmed appropriate placement of the components, and we removed the jigging system. Attention was then directed to closure. The hip was copiously irrigated with normal saline with antibiotics. Following this it was dried and closed. Subcutaneous tissues were closed with a combination of 0 Vicryl and 2-0 Monocryl, and the skin was closed with a continuous 3-0 Monocryl subcuticular stitch. This was then covered with Dermabond and OpSite. The patient was removed from the fracture table and returned to recovery in satisfactory condition. The patient will be discharged to the floor for postoperative rehabilitation and pain management. There were no specimens obtained. Related Problem List Diagnoses (1) Subtrochanteric fracture of left femur:
--- NOTE | 2023-08-24 15:35 | ANE.PACU2 ---
Inpatient post-anesthesia follow up: Airway intact: Yes Vital signs: Temperature 98.1 F Pulse Rate 72 Respiratory Rate 17 Blood Pressure 132/87 Pulse Oximetry 100 Oxygen Delivery Me thod Nasal Cannula Oxygen Flow Rate 2 Fraction of Inspir ed Oxygen Hydration adequate: Yes Nausea and vomiting: No Pain level: 1 Mental status: Baseline
[2023-08-24 19:07] LABS: C Reactive Protein 81.1 mg/L (0.0-4.9); NT Pro B Type Natriuretic Pept 835 pg/mL (0-125)
[2023-08-24] MEDS: oxyCODONE 5 mg IR Tab/Cap PO (20:38)
[2023-08-24] MEDS: acetaminophen 500 mg Tablet 1000 MG PO (20:38)
[2023-08-24] MEDS: tranexamic acid 1,000 MG/100 ML PREMIX 600 MG IV (20:43)
[2023-08-25] VITALS (22 sets, daily range): BP systolic 104–156; BP diastolic 67–101; PULSE 73–101; RESP 16–20; TEMP 36.7–37.2; O2SAT 92–100; BMI 38.5
[2023-08-25] MEDS: oxyCODONE 5 mg IR Tab/Cap PO ×4 (00:50→13:43)
[2023-08-25] MEDS: HYDROmorphone 1 mg/mL INJ 1 mL IVP ×3 (02:17→11:21)
[2023-08-25] MEDS: acetaminophen 500 mg Tablet 1000 MG PO ×2 (04:12→11:09)
[2023-08-25] MEDS: SUMAtriptan 25 mg Tablet 100 MG PO (04:12)
[2023-08-25 05:14] LABS: Basophils % 0.8 %; Eosinophils # 0.1 10^3/uL (0.0-0.8); Hematocrit 24.3 % (36-47); Lymphocytes % 19.1 %; Mean Corpuscular HGB Conc 30.5 g/dL (30-55); Mean Corpuscular Hemoglobin 30.2 pg (27-33); Mean Corpuscular Volume 99.2 fl (85-98); Mean Platelet Volume 9.5 fL (7.4-10.4); Monocytes # 0.6 10^3/uL (0.2-0.9); Monocytes % 11.8 %; Neutrophils # 3.36 10^3/uL (1.8-7.7); Neutrophils % 66.1 %; Nucleated Red Blood Cells % 0 %; Platelet Count 177 10^3/cmm (157-399); Red Blood Count 2.45 10^6/uL (3.85-5.65); Red Cell Distribution Width 13.5 % (12.1-15.1); White Blood Count 5.08 10^3/uL (3.29-11.43)
[2023-08-25 05:31] LABS: INR 1.21 (0.8-1.2)
[2023-08-25 05:43] LABS: Alanine Aminotransferase 10 U/L (0-33); Alkaline Phosphatase 79 U/L (35-105); Anion Gap 10.9 (5-19); Aspartate Amino Transferase 16 U/L (0-32); Blood Urea Nitrogen 9 mg/dL (8-23); Carbon Dioxide 27 mmol/L (22-29); Chloride 102 mmol/L (98-107); Creatinine Clr Calc Pharmacy 87.4938; Globulin 2.4 g/dL (1.3-4.6); Glomerular Filtration Rate 160.2 mL/min (90-130); Glucose 136 mg/dL (65-115); Osmolality Calculated 283 mOsm/kg (285-295); Potassium 3.9 mmol/L (3.5-5.1); Sodium 136 mmol/L (136-145); Total Bilirubin 0.7 mg/dL (0.15-1.2); Total Protein 5.4 g/dL (6.6-8.7)
--- NOTE | 2023-08-25 06:39 | XRR_ITS ---
PROCEDURE INFORMATION: Exam: XR Left Hip Exam date and time: 08/25/2023 7:33 AM Age: 63 years old Clinical indication: Hip pain; Left hip; Additional info: [place] when moved left leg TECHNIQUE: Imaging protocol: Radiologic exam of the left hip. Views: 2 or 3 views hip with pelvis when performed. COMPARISON: CR XR pelvis 1-2V* [id number] 08/23/2023 2:34 PM FINDINGS: Bones/joints: Interval internal fixation left hip, femur with long intramedullary jef/nail of femur threaded compression, sliding pen femoral head-with evidence of improved position and alignment of fragments compared to images from 08/23/2023. Evidence of interval fragmentation, displacement lesser trochanter, which appears displaced superiorly, medially now projecting adjacent to medial femoral neck, with perhaps 2-3 cm displacement, distraction or separation, appearing changed compared to 08/23/2023. Stable appearance left acetabulum. No additional new appearing displaced fracture seen. Postoperative changes lumbar, lumbosacral spine partially included. Evidence of prior screw tract or pin tract over left SI region. Soft tissues: Evidence of interstitial prominence, possible edema/or hemorrhage soft tissues about the left hip, left hemipelvis appearing changed compared to 08/20/2023. XR/XR hip LT 2-3V wo/w pel* [id number] IMPRESSION: 1. Interval internal fixation left hip, femur. 2. Interval displacement of lesser trochanter fragment appearing changed compared to 08/23/2023.
[2023-08-25] MEDS: docusate sodium 100 mg Capsule PO ×2 (08:36→17:37)
[2023-08-25] MEDS: propranolol 40 mg Tablet PO ×2 (08:36→17:37)
[2023-08-25] MEDS: duloxetine 30 mg Capsule 60 MG PO (08:36)
[2023-08-25] MEDS: aspirin 325 mg EC Tablet PO (08:36)
[2023-08-25] MEDS: pantoprazole 40 mg SDV IVP (08:36)
[2023-08-25] MEDS: levothyroxine 50 mcg Tablet PO (08:37)
[2023-08-25] MEDS: lidocaine 5% Patch 1 PATCH TOPICAL (08:48)
[2023-08-25 08:53] LABS: Vancomycin Trough 11.1 ug/mL (10-15)
[2023-08-25] MEDS: vancomycin 1,500 MG/300 ML PIGGYBACK 200 MG IV ×2 (08:55→21:11)
--- NOTE | 2023-08-25 09:00 | NM_ITS ---
WS: [id number] NUCLEAR MEDICINE WHOLE BODY BONE SCAN HISTORY: Rule Out Fosamax stress fracture right femur COMPARISON: Prior pelvis radiograph 08/23/2023. TECHNIQUE: The patient was injected with 26.1 mCi of Technetium 99m HDP and serial whole-body scintig juan miguel have been performed with anterior and posterior images. Whole body bone scan is performed to better evaluate the RIGHT hip for possible stress fracture or re action to patient's medicine. There is normal bone and soft tissue uptake associated with the RIGHT h ip. There is no stress fracture. There is increased uptake within the medial curvature of the proximal LEFT femur at the site of the r ecent fracture. Fracture has been repaired and there is orthopedic hardware now present. Degenerative changes involving each knee. There is very mild increased uptake involving several level s in the visualized lower thoracic and lumbar spine from facet joint arthritis. IMPRESSION: 1. No abnormal uptake involving the RIGHT hip. No stress response or developing fracture appreciated . 2. Increased uptake involving the medial LEFT femoral neck is the site of recent fracture which is u ndergone ORIF.
[2023-08-25 09:08] LABS: Glucose Point of Care 203 mg/dL (70-110)
[2023-08-25] MEDS: sodium chloride 0.9% 1,000 ML 75 ML IV (11:09)
[2023-08-25] MEDS: aztreonam 1,000 MG in sodium chloride 0.9% (plus) 50 ML 100 MG IV ×2 (11:10→23:04)
--- NOTE | 2023-08-25 13:53 | P.PN_ITS ---
Subjective 2 Subjective: The patient is continuing to complain of back pain as well as her hip pain. She is to have her bone scan to rule out similar Fosamax stress fracture in her opposite femur. Medications: Reviewed: Yes Vitals/I&O/Wt Last Vital Signs Temp 98.3 F 08/25/23 13:48 Pulse 74 08/25/23 13:48 Resp 16 08/25/23 13:48 BP 127/89 08/25/23 13:48 Pulse Ox 96 08/25/23 13:48 O2 Del Method Room Air 08/25/23 11:08 O2 Flow Rate 2 08/24/23 19:23 08/24/23 08/25/23 08/25/23 22:59 06:59 14:59 Intake Total 1468.5 / 1818.5 350 / 2168.5 1470 / 1470 Output Total 300 / 2950 600 / 3550 400 / 400 Balance 1168.5 / -1131.5 -250 / -1381.5 1070 / 1070 Weight last 48 hrs Weight 232 lb Weight 232 lb Weight 230 lb Physical Exam 2 Const: COMMON NORMALS: no acute distress, average body habitus, patient oriented x3 and alert GENERAL APPEARANCE: cooperative and comfortable O RIENTATION/CONSCIOUSNESS: Yes awake HENMT: COMMON NORMALS: normocephalic and atraumatic HEAD & SCALP: n ormocephalic and atraumatic Eye: GENERAL EYE: appearance normal, both eyes and all related structures Chest: COMMONS NORMALS: normal inspection of the chest Resp: COMMON NORMALS: normal respiratory effort EFFORT & INSPECTION: Yes able to speak in complete sentences and Yes symmetric chest movement Extremity: LEFT LOWER EXTREMITY: Yes hip joint (Dressings are dry and intact.) Left hip: Yes inspection (Minimal ecchymosis.) and Yes neurovascular exam (Intact distally.) Neuro: COMMON NORMALS: patient oriented x3 SENSORIUM/ORIENTATION: Yes alert Psych: COMMON NORMALS: mental status grossly normal APPEARANCE: Yes grossly normal ATTITUDE: Yes calm and Yes engaged ATTENTION/CONCENTRATION: Yes attention grossly intact Skin: COMMON NORMALS: no rashes or lesions noted GENERAL SKIN EXAM: no rashes or lesions noted Urinary Catheter Management: Portillo: Cath Placed During This Visit: yes Reason for Continuing Indwelling Catheter: Required Immobilization for Trauma or Surgery or Anesthesia Urinary Catheter Date of Insertion: 08/23/23 Urinary Catheter Time of Insertion: 17:15 Data 08/27/23 05:04 08/27/23 05:04 A&P Assessment and plan (1) Subtrochanteric fracture of left femur: The patient was admitted through the emergency department on August 23, 2023 with complaints of left hip pain and inability to ambulate. After admission, the patient was evaluated, imaging was reviewed, and it was determined that the patient's fracture was likely related to Fosamax use. She had no other reason for fracture in this area. She complained of pain similarly in the opposite hip, and therefore, bone scan was ordered to rule out possible early Fosamax stress fracture to the right hip. She is seen today 1 day following surgical intervention. Her dressing is dry and intact. There is no evidence of complication. The swelling and redness in her feet, lower extremities, and hands appears to be improving. Qualifiers: Encounter type: initial encounter Fracture type: closed Fracture alignment: displaced Qualified Code(s): S72.22XA - Displaced subtrochanteric fracture of left femur, initial encounter for closed fracture Attestations 2 Medical Necessity Statement*: Patient continues in hospital following internal fixation of subtrochanteric fracture. Coding Level of Care Code Acute Code for Chg Fwd Diagnoses Closed displaced subtrochanteric fracture of left femur, initial encounter S72.22XA Encounter type: initial encounter Fracture type: closed Fracture alignment: displaced
--- NOTE | 2023-08-25 14:13 | P.PN_ITS ---
Subjective 2 Subjective: Seen this morning. Patient is status post surgery. Hemoglobin 7.4 today. Vitals/I&O/Wt Last Vital Signs Temp 99.0 F 08/25/23 14:03 Pulse 77 08/25/23 14:03 Resp 16 08/25/23 14:03 BP 116/69 08/25/23 14:03 Pulse Ox 96 08/25/23 14:03 O2 Del Method Room Air 08/25/23 11:08 O2 Flow Rate 2 08/24/23 19:23 08/24/23 08/25/23 08/25/23 22:59 06:59 14:59 Intake Total 1468.5 / 1818.5 350 / 2168.5 1470 / 1470 Output Total 300 / 2950 600 / 3550 400 / 400 Balance 1168.5 / -1131.5 -250 / -1381.5 1070 / 1070 Weight last 48 hrs Weight 105.233 kg Weight 105.233 kg Weight 104.326 kg Physical Exam 2 Narrative: General: Alert oriented x3, patient seen laying in bed appearing somewhat comfortable at this time. on room air HEENT: Normocephalic, atraumatic, EOMI, breathing normally Cardio: Regular rate rhythm, normal S1-S2 Respiratory: Clear to auscultation bilaterally GI: Abdomen soft, nontender, nondistended, bowel sounds + Extremities: Left leg bandage in place, not examined. Patient is postop. Urinary Catheter Management: Portillo: Cath Placed During This Visit: yes Reason for Continuing Indwelling Catheter: Required Immobilization for Trauma or Surgery or Anesthesia Urinary Catheter Date of Insertion: 08/23/23 Urinary Catheter Time of Insertion: 17:15 Data 08/25/23 04:53 08/25/23 04:53 A&P Assessment and plan (1) Left hip pain: (2) Closed fracture of left hip: (3) S/P spinal fusion: (4) Anemia: (5) Pre-op evaluation: Plan #Left hip pain secondary to left acute trochanteric fracture #History of multiple spinal fusions #Hypertension #Anxiety, depression #Hypothyroidism #Chronic diastolic heart failure # Acute blood loss anemia ? Check baseline chest x-ray preop ? Check preop EKG?sinus rhythm ? Check preop labs CBC, CMP, PT/INR ? Pain control. dilaudid 1 mg q4h prn -Restart baclofen, home hydrocodone 10 every 4 hours as needed ? Hold alendronate. ? Continue duloxetine, levothyroxine, lisinopril ? Continue propranolol ? Continue Protonix ? N.p.o. at midnight except meds for surgical intervention in a.m. ? Consult orthopedic surgery. ? PT OT ? Patient will require DVT prophylaxis postop x 30 days ? Patient is on baseline 2 L nasal cannula at home. Previous echo in 2021 notes diastolic dysfunction. She states that she has been on oxygen since her last surgery. Does not take any diuretics and denies a history of COPD. ? Patient most likely has chronic diastolic heart failure due to which she is requiring oxygen. ? BNP 835. ? Patient on room air now. ? I will recheck echocardiogram as last 1 was in 2021. ?Patient pending bone scan today. HALIE pending. ? Restart lisinopril. - LV systolic function is normal with EF of 60-65% Grade 1 diastolic dysfunction Mild mitral regurgitation Mild tricuspid regurgitation Ascending aorta is dilated with diameter of 3.7cm Compared to prior echocardiogram from 2021, ascending aorta is mildly dilated now. Hemoglobin 7.40. Order 1 unit packed RBC. Full code Lovenox 40 daily Patient will probably need [facility] at discharge. Attestations 2 Medical Necessity Statement*: Postop care after hip surgery. Diagnoses Left hip pain M25.552 Closed fracture of left hip S72.002A S/P spinal fusion Z98.1 Anemia D64.9 Pre-op evaluation Z01.818
[2023-08-25] MEDS: enoxaparin 40 mg/0.4 mL Syringe SUBCUT (15:02)
[2023-08-25] MEDS: HYDROcodone-acetaminophen 10-325 mg Tablet 1 TAB PO ×2 (16:54→21:29)
--- NOTE | 2023-08-25 17:08 | PC.OT ---
patient was attempted to be see this am. she stated that she is waiting for the physician to come and check her pelvis pain. nursing and PT notified of OT cammie to hold.
[2023-08-25] MEDS: ropinirole 0.25 mg Tablet 0.5 MG PO (17:37)
[2023-08-25] MEDS: baclofen 10 mg Tablet 20 MG PO (20:45)
[2023-08-25] MEDS: temazepam 15 mg Capsule PO (20:45)
[2023-08-25] MEDS: oxybutynin chloride XL 5 MG TABLET 10 MG PO (20:46)
[2023-08-26] VITALS (10 sets, daily range): BP systolic 120–158; BP diastolic 69–104; PULSE 75–109; RESP 16–20; TEMP 36.5–37; O2SAT 94–100; BMI 36.8
[2023-08-26] MEDS: HYDROcodone-acetaminophen 10-325 mg Tablet 1 TAB PO ×2 (01:24→08:50)
[2023-08-26] MEDS: baclofen 10 mg Tablet 20 MG PO ×3 (03:51→17:28)
[2023-08-26 05:13] LABS: INR 1.18 (0.8-1.2)
[2023-08-26 05:33] LABS: Alanine Aminotransferase 11 U/L (0-33); Alkaline Phosphatase 84 U/L (35-105); Aspartate Amino Transferase 18 U/L (0-32); Blood Urea Nitrogen 5 mg/dL (8-23); Calcium 8.1 mg/dL (8.5-10.5); Carbon Dioxide 26 mmol/L (22-29); Chloride 104 mmol/L (98-107); Globulin 2.7 g/dL (1.3-4.6); Glomerular Filtration Rate 223.3 mL/min (90-130); Glucose 143 mg/dL (65-115); Osmolality Calculated 290 mOsm/kg (285-295); Sodium 140 mmol/L (136-145); Total Bilirubin 0.6 mg/dL (0.15-1.2); Total Protein 5.7 g/dL (6.6-8.7)
--- NOTE | 2023-08-26 05:50 | PC.NURSE ---
pt confused about where she is intermittently though out shift. patient states everything is upside down... where am i patient also gets agitated very easily and threw water against wall and stated i cant remember my nurses name and he wont take care of me if i do not remember patient is easily redirected and is able to state name and correctly.
[2023-08-26] MEDS: propranolol 40 mg Tablet PO ×2 (08:35→17:28)
[2023-08-26] MEDS: pantoprazole 40 mg SDV IVP (08:36)
[2023-08-26] MEDS: CELEcoxib 200 mg Capsule PO (08:37)
[2023-08-26] MEDS: duloxetine 30 mg Capsule 60 MG PO (08:37)
[2023-08-26] MEDS: aspirin 325 mg EC Tablet PO (08:37)
[2023-08-26] MEDS: vancomycin 1,500 MG/300 ML PIGGYBACK 200 MG IV (08:38)
[2023-08-26] MEDS: levothyroxine 50 mcg Tablet PO (08:38)
[2023-08-26] MEDS: oxybutynin chloride XL 5 MG TABLET PO (08:38)
[2023-08-26] MEDS: docusate sodium 100 mg Capsule PO ×2 (08:38→17:28)
[2023-08-26] MEDS: ropinirole 0.25 mg Tablet 0.5 MG PO ×2 (08:49→17:28)
[2023-08-26] MEDS: lisinopril 10 mg Tablet PO (08:49)
[2023-08-26 09:54] LABS: Basophils % 0.6 %; Eosinophils # 0.1 10^3/uL (0.0-0.8); Eosinophils % 1.4 %; Hematocrit 23.8 % (36-47); Lymphocytes # 0.9 10^3/uL (0.8-4.8); Lymphocytes % 13.5 %; Mean Corpuscular HGB Conc 31.5 g/dL (30-55); Mean Corpuscular Hemoglobin 30.4 pg (27-33); Mean Corpuscular Volume 96.4 fl (85-98); Mean Platelet Volume 10.2 fL (7.4-10.4); Monocytes # 0.6 10^3/uL (0.2-0.9); Monocytes % 10.2 %; Neutrophils # 4.62 10^3/uL (1.8-7.7); Neutrophils % 73.5 %; Nucleated Red Blood Cells % 0 %; Platelet Count 186 10^3/cmm (157-399); Red Blood Count 2.47 10^6/uL (3.85-5.65); Red Cell Distribution Width 15.7 % (12.1-15.1); White Blood Count 6.29 10^3/uL (3.29-11.43)
[2023-08-26] MEDS: lidocaine 5% Patch 1 PATCH TOPICAL (09:56)
[2023-08-26] MEDS: FUROsemide 20 mg Tablet PO (09:57)
--- NOTE | 2023-08-26 10:06 | PC.NURSE ---
Upon entering room on bedside rounding patient was on the phone to 911 telling them someone was breaking in the back door and was going to kill the night nurse. This nurse and night nurse reoriented patient to the room and where the patient was at the moment. Gave call light to patient but stated when she gets stuck she forgets the call light and wants the phone.
[2023-08-26] MEDS: aztreonam 1,000 MG in sodium chloride 0.9% (plus) 50 ML 100 MG IV (10:47)
[2023-08-26] MEDS: acetaminophen 500 mg Tablet 1000 MG PO ×2 (12:05→20:09)
--- NOTE | 2023-08-26 12:23 | P.PN_ITS ---
Subjective 2 Subjective: Patient seen this morning. Continues to complain of pain in her back from her previous back surgeries which is her chronic pain. Requesting to have her hydrocodone increased. She has told nursing staff that she sometimes takes 2 to 3 tablets of 10 of hydrocodone every 4 hours as needed. She told the nurse that that is not an overdose. Patient wanting to go home and not to a care home. She was able to walk from her bed to the bathroom with physical therapy. Vitals/I&O/Wt Last Vital Signs Temp 98.3 F 08/26/23 08:00 Pulse 81 08/26/23 09:34 Resp 16 08/26/23 09:34 BP 158/104 08/26/23 08:00 Pulse Ox 98 08/26/23 09:34 O2 Del Method Nasal Cannula 08/26/23 09:34 O2 Flow Rate 2 08/26/23 09:34 08/25/23 08/26/23 08/26/23 22:59 06:59 14:59 Intake Total 730 / 2200 1333.75 / 3533.75 Balance 730 / 1800 1333.75 / 3133.75 Weight last 48 hrs Weight 106.64 kg Weight 111.669 kg Physical Exam 2 Narrative: General: Alert oriented x3, patient seen laying in bed appearing somewhat comfortable at this time. on room air HEENT: Normocephalic, atraumatic, EOMI, breathing normally Cardio: Regular rate rhythm, normal S1-S2 Respiratory: Clear to auscultation bilaterally GI: Abdomen soft, nontender, nondistended, bowel sounds + Extremities: Left leg bandage in place, not examined. Patient is postop. Urinary Catheter Management: Portillo: Cath Placed During This Visit: yes, but has since been removed by the nurse Reason for Continuing Indwelling Catheter: Decision to DC Catheter Urinary Catheter Date of Insertion: 08/23/23 Urinary Catheter Time of Insertion: 17:15 Date Urinary Catheter Removed: 08/25/23 Time Urinary Catheter Discontinued: 16:12 Data 08/26/23 04:14 08/26/23 04:14 A&P Assessment and plan (1) Left hip pain: (2) Closed fracture of left hip: (3) S/P spinal fusion: (4) Anemia: (5) Pre-op evaluation: Plan #Left hip pain secondary to left acute trochanteric fracture #History of multiple spinal fusions #Hypertension #Anxiety, depression #Hypothyroidism #Chronic diastolic heart failure # Acute blood loss anemia Continue pain regimen as per home. Hold off on gabapentin. Patient says she does not like to take that. ? Will increase hydrocodone to 1.5 tablets every 4 hours as needed for now. ? Hold alendronate. Will start patient on vitamin D and calcium. ? Continue duloxetine, levothyroxine, lisinopril ? Continue propranolol ? Continue Protonix ?Patient is postop day 2. Orthopedic surgery on board. ? PT OT ? Patient will require DVT prophylaxis postop x 30 days ? Patient is on baseline 2 L nasal cannula at home. Previous echo in 2021 notes diastolic dysfunction. She states that she has been on oxygen since her last surgery. Does not take any diuretics and denies a history of COPD. ? Patient most likely has chronic diastolic heart failure due to which she is requiring oxygen. ? BNP 835. ? Patient on room air now intermittently requiring 2 L. Bone scan negative. Rheumatology profile pending. Will follow-up as an outpatient with her primary care physician regarding that. - LV systolic function is normal with EF of 60-65% Grade 1 diastolic dysfunction Mild mitral regurgitation Mild tricuspid regurgitation Ascending aorta is dilated with diameter of 3.7cm Compared to prior echocardiogram from 2021, ascending aorta is mildly dilated now. Stop IV fluids at this time. Patient did get Lasix 20 IV x 1. ? Will repeat a chest x-ray. Hemoglobin 7.40. Order 1 unit packed RBC.. Repeat hemoglobin 7.70. Now stable at 7.75. ? Will start her on iron tablets daily ? Patient placed on DVT prophylaxis discharged with aspirin 325 daily x 30 days. Full code Lovenox 40 daily Attestations 2 Medical Necessity Statement*: Plan for discharge in morning. Diagnoses Left hip pain M25.552 Closed fracture of left hip S72.002A S/P spinal fusion Z98.1 Anemia D64.9 Pre-op evaluation Z01.818
--- NOTE | 2023-08-26 13:44 | XRR_ITS ---
PROCEDURE INFORMATION: Exam: XR Chest Exam date and time: 08/26/2023 12:59 PM Age: 63 years old Clinical indication: Shortness of breath; Additional info: Hypoxia TECHNIQUE: Imaging protocol: Radiologic exam of the chest. Views: 1 view. COMPARISON: CR XR chest 1V portable [id number] 08/23/2023 2:29 PM FINDINGS: Tubes, catheters and devices: Overlying monitor leads. Lungs: Generalized increased pulmonary markings or vascularity within the lungs, similar in appearance to previous exam though showing some improvement on the right. No focal consolidation. Pleural spaces: No significant pleural effusion or pneumothorax. Heart/Mediastinum: No significant cardiomegaly. Vasculature: Tortuous and dilated/ectatic thoracic aorta, as noted with prior exam. Bones/joints: Postsurgical hardware within the visualized lower thoracic spine. XR/XR chest 1V [id number] IMPRESSION: Compared with recent prior exam, diffuse increased pulmonary markings again noted bilaterally though with some improvement on right. Again, this could be associated with pulmonary vascular congestion/mild edema versus mild diffuse pneumonitis. Continued follow-up.
[2023-08-26] MEDS: SUMAtriptan 25 mg Tablet 100 MG PO (14:15)
[2023-08-26] MEDS: HYDROcodone-acetaminophen 10-325 mg Tablet 1.5 TAB PO ×2 (14:16→20:09)
[2023-08-26 14:31] LABS: 25 Hydroxy Vitamin D 10 ng/mL (30-100)
[2023-08-26] MEDS: FUROsemide 10 mg/mL SDV 4mL 40 MG IVP (15:27)
[2023-08-26] MEDS: enoxaparin 40 mg/0.4 mL Syringe SUBCUT (15:27)
--- NOTE | 2023-08-26 17:51 | P.PN_ITS ---
Subjective 2 Subjective: Patient is insistent that she wishes to be discharged home rather than to long-term. She continues to work with physical therapy with attempts at ambulation. She is complaining of back pain along with her hip pain. Discussion has been undertaken with her by Dr. Gregory regarding pain medications. Medications: Reviewed: Yes Vitals/I&O/Wt Last Vital Signs Temp 98.1 F 08/26/23 16:00 Pulse 75 08/26/23 16:00 Resp 17 08/26/23 16:00 BP 139/80 08/26/23 16:00 Pulse Ox 97 08/26/23 16:00 O2 Del Method Nasal Cannula 08/26/23 09:34 O2 Flow Rate 2 08/26/23 09:34 08/26/23 08/26/23 08/26/23 06:59 14:59 22:59 Intake Total 1333.75 / 3533.75 600 / 600 Output Total 1999 / 1999 Balance 1333.75 / 3133.75 -1400 / -1400 Weight last 48 hrs Weight 235 lb 1.6 oz Weight 246 lb 3 oz Physical Exam 2 Const: COMMON NORMALS: no acute distress, average body habitus, patient oriented x3 and alert GENERAL APPEARANCE: cooperative and comfortable O RIENTATION/CONSCIOUSNESS: Yes awake HENMT: COMMON NORMALS: normocephalic and atraumatic HEAD & SCALP: n ormocephalic and atraumatic Eye: GENERAL EYE: appearance normal, both eyes and all related structures Chest: COMMONS NORMALS: normal inspection of the chest Resp: COMMON NORMALS: normal respiratory effort EFFORT & INSPECTION: Yes able to speak in complete sentences and Yes symmetric chest movement Extremity: LEFT LOWER EXTREMITY: Yes hip joint (Dressing remains dry and intact. There is no significant swelling.) Left hip: Yes inspection (No significant ecchymosis.) and Yes neurovascular exam (Erythema distally appears to be improving and swelling is improving.) Neuro: COMMON NORMALS: patient oriented x3 SENSORIUM/ORIENTATION: Yes alert Psych: COMMON NORMALS: mental status grossly normal APPEARANCE: Yes grossly normal ATTITUDE: Yes calm and Yes engaged ATTENTION/CONCENTRATION: Yes attention grossly intact Skin: COMMON NORMALS: no rashes or lesions noted GENERAL SKIN EXAM: no rashes or lesions noted Urinary Catheter Management: Portillo: Cath Placed During This Visit: yes, but has since been removed by the nurse Reason for Continuing Indwelling Catheter: Decision to DC Catheter Urinary Catheter Date of Insertion: 08/23/23 Urinary Catheter Time of Insertion: 17:15 Date Urinary Catheter Removed: 08/25/23 Time Urinary Catheter Discontinued: 16:12 Data 08/27/23 05:04 08/27/23 05:04 A&P Assessment and plan (1) Subtrochanteric fracture of left femur: The patient was admitted through the emergency department on August 23, 2023 with complaints of left hip pain and inability to ambulate. After admission, the patient was evaluated, imaging was reviewed, and it was determined that the patient's fracture was likely related to Fosamax use. She had no other reason for fracture in this area. She complained of pain similarly in the opposite hip, and therefore, bone scan was ordered to rule out possible early Fosamax stress fracture to the right hip. Bone scan was negative. Rheumatoid factor is 10. She continues to work with physical therapy. We are awaiting discharge to home. Qualifiers: Encounter type: initial encounter Fracture type: closed Fracture alignment: displaced Qualified Code(s): S72.22XA - Displaced subtrochanteric fracture of left femur, initial encounter for closed fracture Attestations 2 Medical Necessity Statement*: Ongoing care following open reduction internal fixation left subtrochanteric hip fracture Coding Level of Care Code Acute Code for g Fwd Diagnoses Closed displaced subtrochanteric fracture of left femur, initial encounter S72.22XA Encounter type: initial encounter Fracture type: closed Fracture alignment: displaced
[2023-08-26 19:13] LABS: Basophils % 0.4 %; Eosinophils # 0.1 10^3/uL (0.0-0.8); Eosinophils % 0.9 %; Hematocrit 23.5 % (36-47); Lymphocytes % 14.4 %; Mean Corpuscular HGB Conc 32.3 g/dL (30-55); Mean Corpuscular Hemoglobin 30.3 pg (27-33); Mean Corpuscular Volume 93.6 fl (85-98); Mean Platelet Volume 9.8 fL (7.4-10.4); Monocytes # 0.8 10^3/uL (0.2-0.9); Monocytes % 11.3 %; Neutrophils # 5.07 10^3/uL (1.8-7.7); Neutrophils % 72.4 %; Nucleated Red Blood Cells % 0 %; Platelet Count 193 10^3/cmm (157-399); Red Blood Count 2.51 10^6/uL (3.85-5.65); Red Cell Distribution Width 15.1 % (12.1-15.1)
[2023-08-26] MEDS: temazepam 15 mg Capsule PO (20:09)
[2023-08-26] MEDS: oxybutynin chloride XL 5 MG TABLET 10 MG PO (20:09)
[2023-08-27] VITALS (19 sets, daily range): BP systolic 100–132; BP diastolic 56–83; PULSE 67–94; RESP 16–18; TEMP 36.6–37.2; O2SAT 96–100
[2023-08-27] MEDS: baclofen 10 mg Tablet 20 MG PO ×4 (01:11→20:58)
[2023-08-27] MEDS: HYDROcodone-acetaminophen 10-325 mg Tablet 1.5 TAB PO (02:06)
[2023-08-27 06:08] LABS: Basophils % 0.6 %; Eosinophils # 0.1 10^3/uL (0.0-0.8); Eosinophils % 2.4 %; Hematocrit 22.6 % (36-47); Lymphocytes % 18.8 %; Mean Corpuscular Hemoglobin 29.9 pg (27-33); Mean Corpuscular Volume 96.6 fl (85-98); Mean Platelet Volume 9.8 fL (7.4-10.4); Monocytes # 0.6 10^3/uL (0.2-0.9); Monocytes % 10.6 %; Neutrophils # 3.61 10^3/uL (1.8-7.7); Nucleated Red Blood Cells % 0 %; Platelet Count 189 10^3/cmm (157-399); Red Blood Count 2.34 10^6/uL (3.85-5.65); Red Cell Distribution Width 15.3 % (12.1-15.1); White Blood Count 5.38 10^3/uL (3.29-11.43)
[2023-08-27 06:38] LABS: Anion Gap 11.3 (5-19); Blood Urea Nitrogen 7 mg/dL (8-23); Calcium 8.5 mg/dL (8.5-10.5); Carbon Dioxide 30 mmol/L (22-29); Chloride 104 mmol/L (98-107); Creatinine Clr Calc Pharmacy 88.2973; Glomerular Filtration Rate 160.2 mL/min (90-130); Glucose 120 mg/dL (65-115); Magnesium 1.7 mg/dL (1.7-2.3); Osmolality Calculated 293 mOsm/kg (285-295); Potassium 3.3 mmol/L (3.5-5.1); Sodium 142 mmol/L (136-145)
[2023-08-27 09:46] LABS: Iron 18 ug/dL (37-145); Percent Saturation 7.2 % (20-50); Total Iron Binding Capacity 249 mcg/dl; Unsaturated Iron Binding 231 ug/dL (112-347)
[2023-08-27] MEDS: ropinirole 0.25 mg Tablet 0.5 MG PO ×2 (10:01→17:49)
[2023-08-27] MEDS: levothyroxine 50 mcg Tablet PO (10:02)
[2023-08-27] MEDS: aspirin 325 mg EC Tablet PO (10:02)
[2023-08-27] MEDS: calcium carb-vit d 600mg/400unit 1 Tablet 1 EACH PO (10:02)
[2023-08-27] MEDS: oxybutynin chloride XL 5 MG TABLET PO (10:02)
[2023-08-27] MEDS: docusate sodium 100 mg Capsule PO (10:03)
[2023-08-27] MEDS: morphine IR 15 mg Tablet PO ×3 (10:03→21:59)
[2023-08-27] MEDS: CELEcoxib 200 mg Capsule PO (10:03)
[2023-08-27] MEDS: duloxetine 30 mg Capsule 60 MG PO (10:03)
[2023-08-27] MEDS: propranolol 40 mg Tablet PO ×2 (10:03→17:49)
[2023-08-27] MEDS: pantoprazole 40 mg SDV IVP (10:04)
[2023-08-27] MEDS: lisinopril 10 mg Tablet PO (10:04)
[2023-08-27] MEDS: potassium chloride ER 20 mEq Tablet 40 MEQ PO (10:12)
[2023-08-27] MEDS: lidocaine 5% Patch 1 PATCH TOPICAL (11:03)
[2023-08-27] MEDS: sodium chloride 0.9% (100 ml) 100 ML 125 ML ×2 (11:25→17:20)
[2023-08-27 12:30] LABS: COMPLEMENT, TOTAL (CH50) >60 U/mL (31-60)
--- NOTE | 2023-08-27 12:34 | PM.PN ---
Subjective Subjective: Hemoglobin 7.0 this morning [facility] packed RBCs ordered Iron studies ordered Patient is in good spirits and feels well today. Pain is well-controlled. She has reached acetaminophen daily, it. Therefore discussed with her that we will be discontinuing the hydrocodone and acetaminophen at this time and switching her over to morphine. Patient is okay with that. Discussed with her regarding her diastolic heart failure and why Lasix is being given at this time. Vitals/I&O/Wt Last Vital Signs Temp 98 F 08/27/23 12:00 Pulse 75 08/27/23 12:00 Resp 17 08/27/23 12:00 BP 109/69 08/27/23 12:00 Pulse Ox 98 08/27/23 12:00 O2 Del Method Nasal Cannula 08/27/23 08:19 O2 Flow Rate 2 08/27/23 08:19 08/26/23 08/27/23 08/27/23 22:59 06:59 14:59 Intake Total 1130 / 1730 400 / 2130 240 / 240 Output Total 1200 / 3200 1800 / 1800 Balance 1130 / -270 -800 / -1070 -1560 / -1560 Weight last 48 hrs Weight 107.048 kg Weight 106.64 kg Physical Exam Narrative: General: Alert oriented x3, patient seen laying in bed appearing somewhat comfortable at this time. on room air HEENT: Normocephalic, atraumatic, EOMI, breathing normally Cardio: Regular rate rhythm, normal S1-S2 Respiratory: Clear to auscultation bilaterally GI: Abdomen soft, nontender, nondistended, bowel sounds + Extremities: Left leg bandage in place, edema present as expected. Nonerythematous no purulent drainage noted. Bandage clean. Urinary Catheter Management: Portillo: Cath Placed During This Visit: yes, but has since been removed by the nurse Reason for Continuing Indwelling Catheter: Decision to DC Catheter Urinary Catheter Date of Insertion: 08/23/23 Urinary Catheter Time of Insertion: 17:15 Date Urinary Catheter Removed: 08/25/23 Time Urinary Catheter Discontinued: 16:12 Data 08/27/23 05:04 08/27/23 05:04 A&P Assessment and plan (1) Left hip pain: (2) Closed fracture of left hip: (3) S/P spinal fusion: (4) Anemia: (5) Pre-op evaluation: Plan #Left hip pain secondary to left acute trochanteric fracture #History of multiple spinal fusions #Hypertension #Anxiety, depression #Hypothyroidism #Chronic diastolic heart failure # Acute blood loss anemia Continue pain regimen as per home. Hold off on gabapentin. Patient says she does not like to take that. ? Stop hydrocodone. Switch to extended release morphine 15 twice daily and 15 mg every 6 hours as needed short acting. ? Hold alendronate. Will start patient on vitamin D and calcium. ? Continue duloxetine, levothyroxine, lisinopril ? Continue propranolol ? Continue Protonix ?Patient is postop day 2. Orthopedic surgery on board. ? PT OT ? Patient will require DVT prophylaxis postop x 30 days ? Patient is on baseline 2 L nasal cannula at home. Previous echo in 2021 notes diastolic dysfunction. She states that she has been on oxygen since her last surgery. Does not take any diuretics and denies a history of COPD. ? Patient most likely has chronic diastolic heart failure due to which she is requiring oxygen. ? BNP 835. Continue Lasix 40 IV daily ? Patient on room air now intermittently requiring 2 L. Bone scan negative. Rheumatology profile pending. Will follow-up as an outpatient with her primary care physician regarding that. - LV systolic function is normal with EF of 60-65% Grade 1 diastolic dysfunction Mild mitral regurgitation Mild tricuspid regurgitation Ascending aorta is dilated with diameter of 3.7cm Compared to prior echocardiogram from 2021, ascending aorta is mildly dilated now. Chest x-ray repeated yesterday. Consistent with pulmonary vascular congestion. Hemoglobin 7. today. Ordered 2 units packed RBC ? Iron studies reveal iron deficiency anemia. ? IV iron 200 mg x 1 to be given. ? Will start her on iron tablets daily ? Patient placed on DVT prophylaxis discharged with aspirin 325 daily x 30 days. Full code Lovenox 40 daily If hemoglobin remained stable in the next 48 hours patient will be discharged home. Attestations Medical Necessity Statement*: Will require blood transfusions today. Hemoglobin has dropped. Continue to hospitalize patient to hemoglobin is stable. Diagnoses Left hip pain M25.552 Closed fracture of left hip S72.002A S/P spinal fusion Z98.1 Anemia D64.9 Pre-op evaluation Z01.818
[2023-08-27 14:23] LABS: THYROID PEROXIDASE ANTIBODIES <1 IU/mL (<9)
[2023-08-27] MEDS: iron sucrose 200 MG in sodium chloride 0.9% (100 ml) 100 ML 220 MG IV (14:39)
[2023-08-27] MEDS: SUMAtriptan 25 mg Tablet 100 MG PO (14:48)
[2023-08-27 15:00] LABS: CENTROMERE B ANTIBODY <1.0 NEG AI (<1.0 NEG); JO-1 ANTIBODY <1.0 NEG AI (<1.0 NEG); RNP ANTIBODY <1.0 NEG AI (<1.0 NEG); SCL-70 ANTIBODY <1.0 NEG AI (<1.0 NEG); SJOGREN'S ANTIBODY (SS-A) <1.0 NEG AI (<1.0 NEG); SM ANTIBODY <1.0 NEG AI (<1.0 NEG); SS-B <1.0 NEG AI (<1.0 NEG)
--- NOTE | 2023-08-27 15:20 | P.PN_ITS ---
Subjective 2 Subjective: Patient is seen in her room today. She seems in better spirits. Plans are made for discharge to home as she is not interested in going to a skilled facility. Today, her CBC demonstrated a low hemoglobin, and therefore, she was transfused and will possibly be discharged home tomorrow. Medications: Reviewed: Yes Vitals/I&O/Wt Last Vital Signs Temp 98.3 F 08/27/23 14:20 Pulse 75 08/27/23 14:20 Resp 17 08/27/23 14:20 BP 102/64 08/27/23 14:20 Pulse Ox 100 08/27/23 14:20 O2 Del Method Nasal Cannula 08/27/23 08:19 O2 Flow Rate 2 08/27/23 08:19 08/27/23 08/27/23 08/27/23 06:59 14:59 22:59 Intake Total 400 / 2130 480 / 480 Output Total 1200 / 3200 1800 / 1800 Balance -800 / -1070 -1320 / -1320 Weight last 48 hrs Weight 236 lb Weight 235 lb 1.6 oz Physical Exam 2 Const: COMMON NORMALS: no acute distress, average body habitus, patient oriented x3 and alert GENERAL APPEARANCE: cooperative and comfortable O RIENTATION/CONSCIOUSNESS: Yes awake HENMT: COMMON NORMALS: normocephalic and atraumatic HEAD & SCALP: n ormocephalic and atraumatic Eye: GENERAL EYE: appearance normal, both eyes and all related structures Chest: COMMONS NORMALS: normal inspection of the chest Resp: COMMON NORMALS: normal respiratory effort EFFORT & INSPECTION: Yes able to speak in complete sentences and Yes symmetric chest movement Extremity: LEFT LOWER EXTREMITY: Yes hip joint (Dressings are dry and intact.) Left hip: Yes inspection (No significant swelling or ecchymosis.) and Yes neurovascular exam (No evidence of DVT.) Neuro: COMMON NORMALS: patient oriented x3 SENSORIUM/ORIENTATION: Yes alert Psych: COMMON NORMALS: mental status grossly normal APPEARANCE: Yes grossly normal ATTITUDE: Yes calm and Yes engaged ATTENTION/CONCENTRATION: Yes attention grossly intact Skin: COMMON NORMALS: no rashes or lesions noted GENERAL SKIN EXAM: no rashes or lesions noted Urinary Catheter Management: Portillo: Cath Placed During This Visit: yes, but has since been removed by the nurse Reason for Continuing Indwelling Catheter: Decision to DC Catheter Urinary Catheter Date of Insertion: 08/23/23 Urinary Catheter Time of Insertion: 17:15 Date Urinary Catheter Removed: 08/25/23 Time Urinary Catheter Discontinued: 16:12 Data 08/27/23 05:04 08/27/23 05:04 A&P Assessment and plan (1) Subtrochanteric fracture of left femur: The patient was admitted through the emergency department on August 23, 2023 with complaints of left hip pain and inability to ambulate. After admission, the patient was evaluated, imaging was reviewed, and it was determined that the patient's fracture was likely related to Fosamax use. She had no other reason for fracture in this area. She complained of pain similarly in the opposite hip, and therefore, bone scan was ordered to rule out possible early Fosamax stress fracture to the right hip. Bone scan was negative. Rheumatoid factor is 10. She continues to work with physical therapy. We are awaiting discharge to home. Today, the patient had a drop in her hemoglobin, therefore, she received a transfusion today and repeat analysis will be accomplished tomorrow prior to her discharge home. Qualifiers: Encounter type: initial encounter Fracture alignment: displaced F racture type: closed Qualified Code(s): S72.22XA - Displaced subtrochanteric fracture of left femur, initial encounter for closed fracture Attestations 2 Medical Necessity Statement*: Ongoing care following open reduction internal fixation left hip fracture Coding Level of Care Code Acute Code for Chg Fwd Diagnoses Closed displaced subtrochanteric fracture of left femur, initial encounter S72.22XA Encounter type: initial encounter Fracture alignment: displaced Fracture type: closed
[2023-08-27] MEDS: FUROsemide 10 mg/mL SDV 4mL 40 MG IVP (16:28)
[2023-08-27] MEDS: enoxaparin 40 mg/0.4 mL Syringe SUBCUT (16:28)
--- NOTE | 2023-08-27 17:20 | PC.OT ---
OT tx attempted at 1230 today. Pt receiving blood transfusion and sleeping soundly with lunch tray untouched at bedside. Attempts to return at later time was not possible today. OT tx to be attempted again tomorrow.
[2023-08-27] MEDS: ferrous sulfate EC 325 mg Tablet PO (17:49)
[2023-08-27] MEDS: morphine ER (12 HR) 15 mg Tablet PO (18:20)
[2023-08-27] MEDS: temazepam 15 mg Capsule PO (20:56)
[2023-08-27] MEDS: oxybutynin chloride XL 5 MG TABLET 10 MG PO (20:57)
[2023-08-28] VITALS (9 sets, daily range): BP systolic 121–139; BP diastolic 72–87; PULSE 70–89; RESP 16–20; TEMP 36.4–37.3; O2SAT 91–100
[2023-08-28 03:58] LABS: Basophils # 0.1 10^3/uL (0.0-0.1); Basophils % 0.9 %; Eosinophils # 0.2 10^3/uL (0.0-0.8); Eosinophils % 2.9 %; Hematocrit 28.4 % (36-47); Lymphocytes # 1.2 10^3/uL (0.8-4.8); Lymphocytes % 21.3 %; Mean Corpuscular Hemoglobin 30.1 pg (27-33); Mean Platelet Volume 9.8 fL (7.4-10.4); Monocytes # 0.7 10^3/uL (0.2-0.9); Neutrophils # 3.58 10^3/uL (1.8-7.7); Nucleated Red Blood Cells % 0.5 %; Platelet Count 204 10^3/cmm (157-399); Red Blood Count 3.02 10^6/uL (3.85-5.65); White Blood Count 5.77 10^3/uL (3.29-11.43)
[2023-08-28] MEDS: morphine IR 15 mg Tablet PO ×2 (04:10→13:58)
[2023-08-28] MEDS: baclofen 10 mg Tablet 20 MG PO ×2 (04:10→13:58)
[2023-08-28 04:40] LABS: Anion Gap 13.3 (5-19); Blood Urea Nitrogen 7 mg/dL (8-23); Calcium 8.5 mg/dL (8.5-10.5); Carbon Dioxide 30 mmol/L (22-29); Chloride 102 mmol/L (98-107); Creatinine Clr Calc Pharmacy 87.3937; Glomerular Filtration Rate 223.3 mL/min (90-130); Glucose 112 mg/dL (65-115); Magnesium 1.7 mg/dL (1.7-2.3); Osmolality Calculated 293 mOsm/kg (285-295); Potassium 3.3 mmol/L (3.5-5.1); Sodium 142 mmol/L (136-145)
[2023-08-28] MEDS: docusate sodium 100 mg Capsule PO ×2 (08:50→17:29)
[2023-08-28] MEDS: aspirin 325 mg EC Tablet PO (08:50)
[2023-08-28] MEDS: oxybutynin chloride XL 5 MG TABLET PO (08:50)
[2023-08-28] MEDS: duloxetine 30 mg Capsule 60 MG PO (08:50)
[2023-08-28] MEDS: ferrous sulfate EC 325 mg Tablet PO ×2 (08:50→17:29)
[2023-08-28] MEDS: ropinirole 0.25 mg Tablet 0.5 MG PO ×2 (08:50→17:29)
[2023-08-28] MEDS: propranolol 40 mg Tablet PO ×2 (08:50→17:29)
[2023-08-28] MEDS: calcium carb-vit d 600mg/400unit 1 Tablet 1 EACH PO (08:50)
[2023-08-28] MEDS: levothyroxine 50 mcg Tablet PO (08:50)
[2023-08-28] MEDS: CELEcoxib 200 mg Capsule PO (08:51)
[2023-08-28] MEDS: lisinopril 10 mg Tablet PO (08:51)
[2023-08-28] MEDS: morphine ER (12 HR) 15 mg Tablet PO ×2 (08:51→17:29)
[2023-08-28] MEDS: pantoprazole 40 mg SDV IVP (09:20)
[2023-08-28 11:25] LABS: COMPLEMENT COMPONENT C3C 149 mg/dL (83-193); COMPLEMENT COMPONENT C4C 28 mg/dL (15-57)
--- NOTE | 2023-08-28 14:29 | P.PN_ITS ---
Subjective 2 Subjective: Seen this morning. Hemoglobin 9.10 today. Denies any symptoms at this time and says she feels the best she has been in the last couple of days. She says the morphine is working really well. States she is interested in going home today Vitals/I&O/Wt Last Vital Signs Temp 98.2 F 08/28/23 12:38 Pulse 70 08/28/23 12:38 Resp 16 08/28/23 13:58 BP 122/74 08/28/23 12:38 Pulse Ox 97 08/28/23 12:38 O2 Del Method Nasal Cannula 08/28/23 12:38 O2 Flow Rate 2 08/28/23 08:42 08/27/23 08/28/23 08/28/23 22:59 06:59 14:59 Intake Total 830 / 1410 490 / 1900 120 / 120 Output Total 600 / 2400 Balance 830 / -390 -110 / -500 120 / 120 Weight last 48 hrs Weight 105.007 kg Weight 105.007 kg Weight 107.048 kg Physical Exam 2 Narrative: General: Alert oriented x3, patient seen laying in bed appearing somewhat comfortable at this time. on room air HEENT: Normocephalic, atraumatic, EOMI, breathing normally Cardio: Regular rate rhythm, normal S1-S2 Respiratory: Clear to auscultation bilaterally GI: Abdomen soft, nontender, nondistended, bowel sounds + Extremities: Left leg bandage in place, edema present as expected. Nonerythematous no purulent drainage noted. Bandage clean. Urinary Catheter Management: Portillo: Cath Placed During This Visit: yes, but has since been removed by the nurse Reason for Continuing Indwelling Catheter: Decision to DC Catheter Urinary Catheter Date of Insertion: 08/23/23 Urinary Catheter Time of Insertion: 17:15 Date Urinary Catheter Removed: 08/25/23 Time Urinary Catheter Discontinued: 16:12 Data 08/28/23 02:45 08/28/23 02:45 A&P Assessment and plan (1) Left hip pain: (2) Closed fracture of left hip: (3) S/P spinal fusion: (4) Anemia: (5) Pre-op evaluation: Plan #Left hip pain secondary to left acute trochanteric fracture #History of multiple spinal fusions #Hypertension #Anxiety, depression #Hypothyroidism #Chronic diastolic heart failure # Acute blood loss anemia Continue pain regimen as per home. Hold off on gabapentin. Patient says she does not like to take that. ? Stop hydrocodone. Switch to extended release morphine 15 twice daily and 15 mg every 6 hours as needed short acting. ? Hold alendronate. Will start patient on vitamin D and calcium. ? Continue duloxetine, levothyroxine, lisinopril ? Continue propranolol ? Continue Protonix ?Patient is postop day 2. Orthopedic surgery on board. ? PT OT ? Patient will require DVT prophylaxis postop x 30 days ? Patient is on baseline 2 L nasal cannula at home. Previous echo in 2021 notes diastolic dysfunction. She states that she has been on oxygen since her last surgery. Does not take any diuretics and denies a history of COPD. ? Patient most likely has chronic diastolic heart failure due to which she is requiring oxygen. ? BNP 835. Continue Lasix 40 IV daily ? Patient on room air now intermittently requiring 2 L. Bone scan negative. Rheumatology profile pending. Will follow-up as an outpatient with her primary care physician regarding that. - LV systolic function is normal with EF of 60-65% Grade 1 diastolic dysfunction Mild mitral regurgitation Mild tricuspid regurgitation Ascending aorta is dilated with diameter of 3.7cm Compared to prior echocardiogram from 2021, ascending aorta is mildly dilated now. Chest x-ray repeated yesterday. Consistent with pulmonary vascular congestion. Hemoglobin 7. today. Ordered 2 units packed RBC ? Iron studies reveal iron deficiency anemia. ? Patient is status post 3 units packed RBCs, 1 bag of 200 mg iron. ? Continue oral iron daily ? Patient placed on DVT prophylaxis discharged with aspirin 325 daily x 30 days. ? Hemoglobin 9.10 today. ? If hemoglobin remained stable by the evening we will discharge home today. ? She will need Lasix 20 oral daily at home ? Check home oxygen evaluation today. Full code Lovenox 40 daily If hemoglobin remained stable in the next 48 hours patient will be discharged home. Attestations 2 Medical Necessity Statement*: Possible discharge later today versus tomorrow. Diagnoses Left hip pain M25.552 Closed fracture of left hip S72.002A S/P spinal fusion Z98.1 Anemia D64.9 Pre-op evaluation Z01.818
[2023-08-28] MEDS: potassium chloride ER 20 mEq Tablet 40 MEQ PO (15:03)
[2023-08-28] MEDS: enoxaparin 40 mg/0.4 mL Syringe SUBCUT (15:04)
[2023-08-28 16:24] LABS: Basophils # 0.1 10^3/uL (0.0-0.1); Basophils % 0.8 %; Eosinophils # 0.1 10^3/uL (0.0-0.8); Eosinophils % 1.9 %; Hematocrit 28.7 % (36-47); Lymphocytes # 1.3 10^3/uL (0.8-4.8); Lymphocytes % 20.9 %; Mean Corpuscular HGB Conc 32.1 g/dL (30-55); Mean Corpuscular Hemoglobin 30.3 pg (27-33); Mean Corpuscular Volume 94.4 fl (85-98); Mean Platelet Volume 9.4 fL (7.4-10.4); Monocytes # 0.8 10^3/uL (0.2-0.9); Monocytes % 11.9 %; Neutrophils # 4.02 10^3/uL (1.8-7.7); Neutrophils % 63.7 %; Nucleated Red Blood Cells % 0.3 %; Platelet Count 219 10^3/cmm (157-399); Red Blood Count 3.04 10^6/uL (3.85-5.65); Red Cell Distribution Width 16.3 % (12.1-15.1); White Blood Count 6.31 10^3/uL (3.29-11.43)
--- NOTE | 2023-08-28 17:55 | P.DS_ITS ---
Discharge Providers Date of Admission: 08/23/23 14:14 Date of Discharge: August 28, 2023 Attending Provider at Admission: Anabel Gregory MD Attending Provider at Discharge: Anabel Gregory MD Primary Care Provider: Charity Salazar MD Diagnoses at Discharge Discharge Diagnosis (1) Left hip pain: Status: Acute (2) Closed fracture of left hip: Status: Acute (3) S/P spinal fusion: Status: Acute (4) Anemia: Status: Acute (5) Pre-op evaluation: Status: Acute Reason for Visit Reason for Visit: hip pain Hospital Course Hospital Course admitted for hip fracture see hnp underwent surgery post op anemia , given 3 units prbc vit d level 10 ordered vit d, calcium at dc eliquis 2.5 bid for dvt ppx pt advised to stop fosamax bone scan also done during hospital stay, no other lesions noted dc home in stable condition to f/u with orthopedic surgery and pcp outpatient patient uses 2L NC at home, she was advised to continue that diastolic HF on echo started on lasix 20 daily with K 8 meq pt to follow with PCP and cardiology Physical Exam Urinary Catheter Management: Portillo: Cath Placed During This Visit: yes, but has since been removed by the nurse Reason for Continuing Indwelling Catheter: Decision to DC Catheter Urinary Catheter Date of Insertion: 08/23/23 Urinary Catheter Time of Insertion: 17:15 Date Urinary Catheter Removed: 08/25/23 Time Urinary Catheter Discontinued: 16:12 Discharge Data Studies Completed and Pending Completed Studies During Hospitalization Category Date Time Status CT hip LT wo con* [id number] Stat Cat Scan 08/23/23 12:54 Completed XR chest 1V [id number] Routine Exams 08/26/23 13:44 Completed XR chest 1V portable [id number] Stat Exams 08/23/23 13:51 Completed XR hip LT 2-3V wo/w pel* [id number] Routine Exams 08/24/23 00:00 Completed XR hip LT 2-3V wo/w pel* [id number] Stat Exams 08/25/23 06:39 Completed XR pelvis 1-2V* [id number] Stat Exams 08/23/23 14:00 Completed NM bone scan whole body* [id number] Routine Nuc Med 08/25/23 09:00 Completed CV. echo complete* [id number] Routine Ultrasound 08/24/23 12:29 Completed Pending at discharge Category Date Time Status HALIE Profile Rheumatology Routine Lab 08/24/23 18:07 Results Radiology Impressions Pelvis X-Ray 08/23/23 14:00 IMPRESSION: 1. Acute proximal left femoral fracture. 2. Medial left acetabular fracture which may extend into the inferior acetabulum. Hip/Pelvis X-Ray 08/25/23 06:39 IMPRESSION: 1. Interval internal fixation left hip, femur. 2. Interval displacement of lesser trochanter fragment appearing changed compared to 08/23/2023. Chest X-Ray 08/26/23 13:44 IMPRESSION: Compared with recent prior exam, diffuse increased pulmonary markings again noted bilaterally though with some improvement on right. Again, this could be associated with pulmonary vascular congestion/mild edema versus mild diffuse pneumonitis. Continued follow-up. Laboratory Results WBC 6.31 10^3/uL (3.29-11.43) 08/28/23 16:06 RBC 3.04 10^6/uL (3.85-5.65) L 08/28/23 16:06 Hgb 9.20 g/dL (11.27-16.99) L 08/28/23 16:06 Hct 28.7 % (36-47) L 08/28/23 16:06 MCV 94.4 fl (85-98) 08/28/23 16:06 MCH 30.3 pg (27-33) 08/28/23 16:06 MCHC 32.1 g/dL (30-55) 08/28/23 16:06 RDW 16.3 % (12.1-15.1) H 08/28/23 16:06 Plt Count 219 10^3/cmm (157-399) 08/28/23 16:06 MPV 9.4 fL (7.4-10.4) 08/28/23 16:06 Neut % (Auto) 63.7 % 08/28/23 16:06 Lymph % (Auto) 20.9 % 08/28/23 16:06 [place] % (Auto) 11.9 % 08/28/23 16:06 Eos % (Auto) 1.9 % 08/28/23 16:06 Baso % (Auto) 0.8 % 08/28/23 16:06 Neut # (Auto) 4.02 10^3/uL (1.8-7.7) 08/28/23 16:06 Lymph # (Auto) 1.3 10^3/uL (0.8-4.8) 08/28/23 16:06 [place] # (Auto) 0.8 10^3/uL (0.2-0.9) 08/28/23 16:06 Eos # (Auto) 0.1 10^3/uL (0.0-0.8) 08/28/23 16:06 Baso # (Auto) 0.1 10^3/uL (0.0-0.1) 08/28/23 16:06 Nucleated RBC % (auto) 0.3 % 08/28/23 16:06 Nucleated RBCs # 0.0 /100WBC 08/28/23 16:06 PT 15.40 SECONDS (12.1-14.9) H 08/26/23 04:14 INR 1.18 (0.8-1.2) 08/26/23 04:14 APTT 29.4 SECONDS (23.9-36.7) 08/23/23 14:05 Sodium 142 mmol/L (136-145) 08/28/23 02:45 Potassium 3.3 mmol/L (3.5-5.1) L 08/28/23 02:45 Chloride 102 mmol/L (98-107) 08/28/23 02:45 Carbon Dioxide 30 mmol/L (22-29) H 08/28/23 02:45 Anion Gap 13.3 (5-19) 08/28/23 02:45 BUN 7 mg/dL (8-23) L 08/28/23 02:45 Creatinine 0.3 mg/dL (0.5-0.9) L 08/28/23 02:45 GFR Calculation 223.3 mL/min (90-130) H 08/28/23 02:45 Glucose 112 mg/dL (65-115) 08/28/23 02:45 POC Glucose 203 mg/dL (70-110) H 08/25/23 09:04 Calculated Osmolality 293 mOsm/kg (285-295) 08/28/23 02:45 Calcium 8.5 mg/dL (8.5-10.5) 08/28/23 02:45 Magnesium 1.7 mg/dL (1.7-2.3) 08/28/23 02:45 Iron 18 ug/dL (37-145) L 08/27/23 05:04 TIBC 249 mcg/dl 08/27/23 05:04 % Saturation 7.2 % (20-50) L 08/27/23 05:04 Unsat Iron Binding 231 ug/dL (112-347) 08/27/23 05:04 Total Bilirubin 0.6 mg/dL (0.15-1.2) 08/26/23 04:14 AST 18 U/L (0-32) 08/26/23 04:14 ALT 11 U/L (0-33) 08/26/23 04:14 Alkaline Phosphatase 84 U/L (35-105) 08/26/23 04:14 C-Reactive Protein 81.1 mg/L (0.0-4.9) H 08/24/23 18:07 NT-Pro-B Natriuret Pep 835 pg/mL (0-125) H 08/24/23 18:07 Total Protein 5.7 g/dL (6.6-8.7) L 08/26/23 04:14 Albumin 3.0 g/dL (3.5-5.2) L 08/26/23 04:14 Globulin 2.7 g/dL (1.3-4.6) 08/26/23 04:14 25-OH Vitamin D Total 10 ng/mL (30-100) L 08/26/23 04:14 Urine Color Yellow (Yellow) 08/23/23 15:13 Urine Appearance Clear (CLEAR) 08/23/23 15:13 Urine pH 6 (5-7) 08/23/23 15:13 Ur Specific Lena 1.015 (1.005-1.030) 08/23/23 15:13 Urine Protein Neg (Negative) 08/23/23 15:13 Urine Glucose (UA) Norm (Normal) 08/23/23 15:13 Urine Ketones 1+ (Negative) H 08/23/23 15:13 Urine Blood Neg (Negative) 08/23/23 15:13 Urine Nitrate Negative (Negative) 08/23/23 15:13 Urine Bilirubin Neg (Negative) 08/23/23 15:13 Urine Urobilinogen Norm mg/dL (Negative) 08/23/23 15:13 Ur Leukocyte Esterase Negative (Negative) 08/23/23 15:13 Vancomycin Trough 11.1 ug/mL (10-15) 08/25/23 08:01 Rheumatoid Factor 10.0 IU/mL (0-14) 08/24/23 18:07 DERICK-1 Antibody <1.0 neg AI (<1.0 NEG) 08/24/23 18:07 SS-A Antibody <1.0 neg AI (<1.0 NEG) 08/24/23 18:07 SS-B Antibody <1.0 neg AI (<1.0 NEG) 08/24/23 18:07 Sm (Moody) Antibody <1.0 neg AI (<1.0 NEG) 08/24/23 18:07 EQUAL OPPORTUNITY ASSISTANT Antibody <1.0 neg AI (<1.0 NEG) 08/24/23 18:07 Scl-70 Antibody <1.0 neg AI (<1.0 NEG) 08/24/23 18:07 Centromere B Antibody <1.0 neg AI (<1.0 NEG) 08/24/23 18:07 Thyroid Peroxidase Ab <1 IU/mL (<9) 08/24/23 18:07 Complement C3c 149 mg/dL (83-193) 08/24/23 18:07 Complement C4c 28 mg/dL (15-57) 08/24/23 18:07 CH50 Classical Pathway >60 U/mL (31-60) H 08/24/23 18:07 Blood Type O Positive 08/25/23 09:58 Rho(D) Type Rh positive 08/25/23 09:58 Antibody Screen Negative 08/25/23 09:58 Crossmatch See Detail 08/25/23 09:58 Vitals Last Vital Signs Temp 97.5 F L 08/28/23 17:02 Pulse 80 08/28/23 17:02 Resp 18 08/28/23 17:02 BP 134/87 08/28/23 17:02 Pulse Ox 91 08/28/23 17:02 O2 Del Method Room Air 08/28/23 17:02 O2 Flow Rate 2 08/28/23 08:42 Discharge Plan Discharge Patient Disposition: Home Health Service Condition: Stable Prescriptions: New docusate sodium 100 mg Capsule 100 mg PO BID PRN (Reason: Constipation) Qty: 14 0RF furosemide 20 mg Tablet 20 mg PO DAILY@0800 Qty: 30 0RF ferrous sulfate 325 mg (65 mg iron) Tablet,Delayed Release (Dr/Ec) 325 mg PO BIDWM Qty: 60 0RF calcium carbonate-vitamin D3 600 mg-10 mcg (400 unit) Tablet 1 tab PO DAILY Qty: 30 0RF Eliquis 2.5 mg tablet 2.5 mg PO BID 30 Days Qty: 60 0RF cholecalciferol (vitamin D3) 625 mcg (25,000 unit) capsule 25,000 unit PO Q7D 28 Days Qty: 4 0RF Rx Instructions: 25,000 unit orally weekly potassium chloride 8 mEq capsule, extended release 8 meq PO DAILY Qty: 30 0RF hydrocodone-acetaminophen 10-325 mg Tablet 1.5 tab PO Q4H PRN (Reason: pain) 7 Days Qty: 40 0RF Continued oxybutynin chloride 5 mg tablet See Rx Instructions .ROUTE .COMPLEX Rx Instructions: 5 mg orally in morning; 10mg HS baclofen 20 mg tablet 20 mg PO QID PRN (Reason: spasms) 30 Days Qty: 120 1RF levothyroxine 50 mcg capsule 50 mcg PO DAILY duloxetine [Cymbalta] 30 mg capsule,delayed release(DR/EC) 60 mg PO DAILY celecoxib 200 mg capsule 200 mg PO DAILY omeprazole 40 mg capsule,delayed release(DR/EC) 40 mg PO DAILY propranolol 40 mg tablet 40 mg PO BID ropinirole 0.5 mg tablet 0.5 mg PO BID lisinopril 10 mg tablet 10 mg PO DAILY doxylamine succinate 25 mg tablet 25 mg PO Q6H PRN (Reason: Insomnia) (DME) Bone Growth Stimulator E0748 See Rx Instructions .Route .MEDSUPPLY Qty: 1 0RF Rx Instructions: As directed albuterol sulfate 90 mcg/actuation HFA aerosol inhaler 2 puff INHALATION Q4H PRN (Reason: Shortness Of Breath Or Wheezing) sumatriptan succinate 100 mg tablet 100 mg PO DAILY PRN (Reason: Migraine Headache) oxybutynin chloride 10 mg tablet extended release 24hr 10 mg PO QPM temazepam [Restoril] 15 mg Capsule 15 mg PO BEDTIME Held gabapentin 300 mg capsule 300 mg PO DAILY PRN (Reason: pain) Qty: 10 0RF Hold Instructions: see pcp Discontinued alendronate 10 mg Tablet 10 mg PO Q7D Discharge Orders: Discharge Order (Routine); Ordered 08/28/23 Ordered By: Anabel Gregory Other Ambulatory Orders: Complete Blood Count w/Auto (Routine) Timeframe: 3 Days Location: Determined by Patient Ordered By: Anabel Gregory Referrals: Charity Salazar MD [Primary Care Provider] - (We have notified your physician's clinic of the need for a follow-up appointment to be scheduled. If you have not heard from them within the next 2 business days, please call them directly. ) Nerissa Hancock MD [Physician] - 2 weeks Adriana Zhu MD [Physician] - 09/08/23 10:15 am Discharge Diet: Cardiac Discharge Activity: Increase activity as tolerated, Use walker/crutches as instructed and As per PT/OT instructions Patient Instructions: Furosemide (By mouth), Hydrocodone/Acetaminophen (By mouth), Laxative, Stool Softeners (By mouth), Apixaban (By mouth), Closed Reduction Internal Fixation of Leg Fracture in Adults (GEN), Opioid Safety Activity Restrictions/Additional Instructions: Weightbearing as tolerated ambulation on the left lower extremity. Use walker, or other ambulatory aid as instructed by physical therapy. Home physical therapy. Maintain dressing until it comes off on its own, but you may shower with the dressing in place. If it begins to leak, please remove it. Discharge Attestations Time Spent in Discharge Care*: greater than 30 min Quality Metrics Clinical Quality Measures [ No reported AMI, CVA or VTE this stay] Coding Level of Care Code Acute Code for Chg Fwd Diagnoses Left hip pain M25.552 Closed fracture of left hip S72.002A S/P spinal fusion Z98.1 Anemia D64.9 Pre-op evaluation Z01.818
--- NOTE | 2023-08-29 17:31 | P.MISC_ITS ---
Miscellaneous Note Note: was called by dr. tello (ms rodríguez neighbour) pt couldnt strip picker her meds since pharmacy was closed requesting eliquis and hydrocodone be sent to [facility] pharmacy. sent srcipt will need to cancel script at [facility] in [place]
--- NOTE | 2023-08-29 17:31 | PM.MISC ---
Miscellaneous Note Note: was called by dr. tello (ms rodríguez neighbour) pt couldnt brick picker her meds since pharmacy was closed requesting eliquis and hydrocodone be sent to [facility] pharmacy. sent srcipt will need to cancel script at [facility] in am
[2023-08-30 15:59] LABS: ANA SCREEN, IFA NEGATIVE (NEGATIVE)
[2023-09-02 14:09] LABS: DNA AB (DS) CRITHIDIA,IFA NEGATIVE (NEGATIVE)
== END 2023-08-28 18:30 | disposition home health service (06) | DRG 481 ==
LOC: ER 15:00 → MEDSURG 15:28
PROVIDERS: Specialist; Admitting Provider Internal Medicine; Emergency Provider Family Medicine; PCP Internal Medicine; Visit Provider Internal Medicine
PROC: 0QS636Z Reposition Right Upper Femur with Intramedullary Internal Fixation Device, Percutaneous Approach (ICD-10-PCS; CPT 27245; principal; 2023-08-24 11:45)
DX: M84.459A Pathological fracture, hip, unspecified, initial encounter for fracture (principal); I50.32 Chronic diastolic (congestive) heart failure; D64.89 Other specified anemias; D50.9 Iron deficiency anemia, unspecified; I11.0 Hypertensive heart disease with heart failure; F41.9 Anxiety disorder, unspecified; F32.A Depression, unspecified; E03.9 Hypothyroidism, unspecified; R60.0 Localized edema; Z98.1 Arthrodesis status; Z99.81 Dependence on supplemental oxygen
CPT/HCPCS: 36415; 36416; 36430; 51702; 71045; 72170; 73502; 73700; 76000; 78306; 80048; 80053; 80202; 81003; 82306; 82962; 83540; 83550; 83735; 83880; 85018; 85025; 85610; 85730; 86140; 86160; 86162; 86235; 86255; 86376; 86431; 86850; 86900; 86920; 93005; 93306; 96372; 96374; 96375; 97012; 97110; 97116; 97162; 97167; 97530; 97535; 99284; 99285; A9561; C1713; C9113; J1170; J1650; J1756; J1885; J1940; J2270; J2360; J2405; J2704; J3010; J3370; J3490; J7030; P9040; P9045

== ENCOUNTER → 2023-09-08 10:23 | Outpatient (BNVA) | payer MEDICARE, SELFPAY | PROVIDERS: PCP Internal Medicine; Visit Provider Specialist | DX: S72.22XD Displaced subtrochanteric fracture of left femur, subsequent encounter for closed fracture with routine healing; X58.XXXD Exposure to other specified factors, subsequent encounter | CPT/HCPCS: 73502; 99024 ==

== ENCOUNTER 2023-09-27 12:50 | Outpatient (RCR) | payer MEDICARE, SELFPAY | END 2023-10-12 23:59 | disposition home or self-care (01) | LOC: SPT 12:50 | PROVIDERS: Visit Provider Specialist | DX: Z98.890 Other specified postprocedural states (principal) | CPT/HCPCS: 97110; 97162 ==

== ENCOUNTER 2023-10-12 15:45 | Outpatient (CLI) | payer MEDICARE, SELFPAY ==
--- NOTE | 2023-10-12 16:27 | MR_ITS ---
WS: [id number] MRI LUMBAR SPINE NONCONTRAST HISTORY: Pain, multiple falls. Prior extensive lumbar surgery. COMPARISON: 11/29/2021 TECHNIQUE: Sagittal and axial multisequence imaging is submitted. Marked increase in thoracic kyphosis. Disc bases are narrowed throughout. There is extensive hardware throughout the lower thoracic and lumbar spine causing significant artifact. Marked levoscoliosis of the lumbar spine. Extremely limited evaluation of the lumbar spine. There is hardware with metallic artifact extending to the sacrum. Severe vertebral plana fracture at T12. Mild concave deformity T11. Biconcave fracture at L2. 50% compression fracture at L3. Mild anterior wedging of L5. No marrow edema identified withi n the superimposed artifact. Cannot confirm if these are acute fractures based on MRI. The central canal cannot be adequately visualized. There does not appear to be a significant stenosis at the L4-5 or L5-S1 levels. Large posterior laminectomy defects. Marked atrophy of the psoas muscles. MR/MR lumbar spine wo con* [id number] IMPRESSION: 1. Extremely limited evaluation of the lumbar vertebral bodies due to the exte nsive hardware. There is significant artifact obscuring the central canal and f oramina. 2. Patient has known extensive fractures as described above. None of these are fractures appear acute or marrow edema identified with certainty. 3. Noncontrast CT lumbar spine with hardware reducing artifact software appli ed may provide additional information.
== END 2023-10-12 15:46 | disposition home or self-care (01) ==
LOC: RAD 15:45
PROVIDERS: PCP Internal Medicine; Visit Provider Internal Medicine
DX: R09.89 Other specified symptoms and signs involving the circulatory and respiratory systems (principal); M54.50 Low back pain, unspecified; M48.56XD Collapsed vertebra, not elsewhere classified, lumbar region, subsequent encounter for fracture with routine healing; X58.XXXD Exposure to other specified factors, subsequent encounter
CPT/HCPCS: 72148

== ENCOUNTER 2023-10-15 20:13 | Inpatient (IN) | payer MEDICARE, SELFPAY ==
[2023-10-15] VITALS (10 sets, daily range): BP systolic 126–146; BP diastolic 52–102; PULSE 61–93; RESP 15–25; TEMP 36.7; O2SAT 91–99; BMI 32.8
--- NOTE | 2023-10-15 20:24 | CTR_ITS ---
PROCEDURE INFORMATION: Exam: CT Head Without Contrast Exam date and time: 10/15/2023 9:01 PM Age: 63 years old Clinical indication: Injury or trauma; Fall; Other: Pain; Additional info: Fall, trauma on eliquis TECHNIQUE: Imaging protocol: Computed tomography of the head without contrast. Radiation optimization: All CT scans at this facility use at least one of these dose optimization techniques: automated exposure control; mA and/or kV adjustment per patient size (includes targeted exams where dose is matched to clinical indication); or iterative reconstruction. COMPARISON: CT head wo con* [id number] 10/11/2022 5:58 AM RADIATION DOSE METRICS: Total DLP (mGy-cm): 1265 FINDINGS: Brain: Normal. No hemorrhage. Unremarkable white matter. No mass effect. Cerebral ventricles: No ventriculomegaly. Paranasal sinuses: Visualized sinuses are unremarkable. No fluid levels. Mastoid air cells: Visualized mastoid air cells are well aerated. Bones: Unremarkable. No acute fracture. Soft tissues: [id number] right occipital scalp hematoma. CT/CT head wo con* [id number] IMPRESSION: 1. Mild-moderate right occipital scalp hematoma. 2. No acute intracranial abnormality.
--- NOTE | 2023-10-15 20:24 | XRR_ITS ---
PROCEDURE INFORMATION: Exam: XR Left Hip Exam date and time: 10/15/2023 9:46 PM Age: 63 years old Clinical indication: Injury or trauma; Fall; Prior surgery; Surgery date: <1 month; Surgery type: Lt long tfn; Additional info: Lt lower ext pain post fall; Recent lt femur surg TECHNIQUE: Imaging protocol: Radiologic exam of the left hip. Views: 2 or 3 views hip with pelvis when performed. COMPARISON: CR XR hip LT 2-3V wo/w pel* [id number] 09/08/2023 10:30 AM FINDINGS: Bones/joints: Partially imaged lumbosacral fusion hardware again noted. Mild loosening of the S1 screws again demonstrated similar to 09/08/2023. Left hip internal fixation hardware again noted. Superimposed new oblique proximal femoral fracture with interposed 11.8 cm butterfly fragment. Additionally, the hardware appears to have lucent/displaced with the tip of the femoral screw now within the hip joint space. Soft tissues: Unremarkable. XR/XR hip LT 2-3V wo/w pel* [id number] IMPRESSION: 1. Acute fracture of the left proximal femur. 2. Evidence of loosening/displacement of the femoral head screw, the tip now extending to the joint space. Mildly increased angulation of the femoral head and neck junction , periosteal reaction along the medial aspect .
[2023-10-15] MEDS: morphine 4 mg/mL SDV 1 mL IVP ×2 (20:29→20:54)
[2023-10-15] MEDS: ondansetron 2 mg/ML SDV 2 mL 4 MG IVP (20:30)
--- NOTE | 2023-10-15 20:45 | W.ED.FALL ---
HPI - Fall General: Chief Complaint: Fall Stated Complaint: fall Time Seen by Provider: 10/15/23 20:24 History of Present Illness: Patient presents to the ER post fall. Patient said she had 1 drink and was feeling good and went to cook steak in her kitchen when she fell. Patient reports landing on her right side and hit the back of her head. Patient did not lose consciousness however she is on a blood thinner. Patient had recent left hip surgery in August and is now hurting worse in her left hip region. Upon further discussion with the patient patient is never picked up her Eliquis and has not taking it. Patient does admit to taking a 81 mg aspirin daily. Review of Systems General: Reports: 10 or more systems reviewed and unremarkable except in HPI and below PFSH ED PFSH: Medical History At risk for polypharmacy Altered mental status Chronic hypertension Diagnosed at the age of 14 and controlled on medication managed by primary care provider. Anxiety and depression Currently on Cymbalta managed by her primary care provider. Hypothyroid Currently on levothyroxine managed by PMD No pertinent past medical history Denies: hypertension, diabetes, heart, lung, liver, kidney, thyroid, genital herpes, bleeding problems, or clotting problems. her primary care provider is Dr. Salazar Chronic low back pain without sciatica Currently on hydrocodone and baclofen managed by the pain clinic Surgical History History of back surgery 10/2020---jef placed in back S/P breast biopsy 2000-left breast-benign History of dental surgery tooth extraction Hx of section 03/26/89 History of ankle surgery 2006--LEFT x3. In [place] Family History Mother Family history of thyroid problem Thyroid disease Diabetes Hypertension Father Brain aneurysm Denies family history of Colon cancer Ovarian cancer DVT (deep venous thrombosis) Heart disease Breast cancer Suicide Pulmonary embolism Uterine cancer Social History (Updated 10/15/23 @ 23:48 by Saurabh George MD) Smoking and tobacco/nicotine status: never used tobacco/nicotine Alcohol intake: current Alcohol intake frequency: 0-2 Drinks per Day Substance/Drug Use: never Physical Exam Const: COMMON NORMALS: no acute distress, average body habitus, patient oriented x3, no limitations, healthy appearing, alert and well nourished HENMT: COMMON NORMALS: normocephalic, hearing grossly normal bilaterally, external ears normal, Normal external nose present, moist oral mucous membranes and oropharynx normal; head/scalp not atraumatic (Large swelling area to posterior occipital region) HEAD & SCALP: normocephalic; not atraumatic (Large swelling area to posterior occipital region) NOSE: Normal external nose present EXTERNAL EAR: Yes external ears normal Eye: COMMON NORMALS: Equal, round and reactive pupils present, EOMs intact bilaterally, conjunctivae normal and no scleral icterus CONJUNCTIVA: Yes conjunctivae normal PUPIL: Yes Equal, round and reactive pupils present Neck/C-Spine: COMMON NORMALS: full ROM, no lymphadenopathy, supple, no meningeal signs, no JVD and Thyroid normal THYROID: Thyroid normal Chest: COMMONS NORMALS: normal inspection of the chest and normal palpation of entire chest wall Resp: COMMON NORMALS: normal respiratory effort, No retractions, No use of accessory muscles and clear to auscultation bilaterally AUSCULTATION: clear to auscultation bilaterally Cardio: COMMON NORMALS: no JVD, regular rate, regular rhythm, S1 normal heart sound present, S2 normal heart sound present, No gallops present (Cardio), No clicks present (Cardio), No murmurs present (Cardio) and No rub (Cardio) RATE: regular rate RHYTHM: regular rhythm HEART SOUNDS: S1 normal heart sound present and S2 normal heart sound present GI: COMMON NORMALS: Normal to inspection, nondistended, normoactive bowel sounds present, Soft to palpation, non-tender, No hepatosplenomegaly present and no masses PALPATION: Yes Soft to palpation and Yes No hepatosplenomegaly present Extremity: NARRATIVE EXTREMITY EXAM: Tenderness to palpation over left hip pelvis region no obvious crepitus deformity noted Neuro: COMMON NORMALS: patient oriented x3 SENSORIUM/ORIENTATION: Yes alert MENINGEAL SIGNS: Yes no meningeal signs Course Vital Signs: Vital signs: Vital Signs Temperature 98.1 F 10/15/23 20:17 Pulse Rate 70 10/16/23 00:13 Respiratory Rate 20 H 10/16/23 00:13 Blood Pressure 145/58 10/15/23 23:59 Pulse Oximetry 95 10/16/23 00:13 Oxygen Delivery Me thod Nasal Cannula 10/15/23 23:59 Oxygen Flow Rate 3 10/15/23 23:59 MDM - Fall Medical Decision Making Dr. Nelson reviewed the images and said admit to the hospitalist he will take her to surgery probably tomorrow and do a revision of the whole femoral/hip area. Reviewed the case with Dr. Ross who will be admitting her to [facility] [place] Patient had lab work, x-ray of her hip and pelvis, femur, chest, knee and head CT, which showed new femoral fracture displacement of the femoral head and screw, Differential Diagnosis Unlikely syncope, dislocation of shoulder region, fracture of wrist, compression fracture, concussion with loss of consciousness or concussion without loss of consciousness Medical Records I reviewed the patient's medical records. Lab Data I reviewed the patient's lab results. 10/15/23 22:19 10/15/23 22:[address] 10/15/23 20:24 IMPRESSION: 1. Mild-moderate right occipital scalp hematoma. 2. No acute intracranial abnormality. Hip/Pelvis X-Ray 10/15/23 20:24 IMPRESSION: 1. Acute fracture of the left proximal femur. 2. Evidence of loosening/displacement of the femoral head screw, the tip now extending to the joint space. Mildly increased angulation of the femoral head and neck junction , periosteal reaction along the medial aspect . Femur X-Ray 10/15/23 21:23 IMPRESSION: 1. Acute fracture of the proximal femur shaft new from 09/08/2023. 2. Evidence of loosening versus posttraumatic displacement of the femoral head screw, the tip now overlying the joint space. Slightly increased angulation and increased periosteal reaction of the femoral head and neck junction at the site of previous subtrochanteric fracture. Chest X-Ray 10/15/23 21:27 IMPRESSION: Mild bandlike atelectasis or scarring in the right midlung zone. Otherwise no significant interval change from 08/26/2023. Other findings detailed above. Forearm X-Ray 10/15/23 23:44 IMPRESSION: No acute osseous abnormality. Mild soft swelling of the medial elbow. Knee X-Ray 10/15/23 23:44 IMPRESSION: No acute fracture. Laboratory Results WBC 7.06 10^3/uL (3.29-11.43) 10/15/23 22:19 RBC 3.79 10^6/uL (3.85-5.65) L 10/15/23 22:19 Hgb 11.50 g/dL (11.27-16.99) 10/15/23 22:19 Hct 36.6 % (36-47) 10/15/23 22:19 MCV 96.6 fl (85-98) 10/15/23 22:19 MCH 30.3 pg (27-33) 10/15/23 22:19 MCHC 31.4 g/dL (30-55) 10/15/23 22:19 RDW 13.5 % (12.1-15.1) 10/15/23 22:19 Plt Count 229 10^3/cmm (157-399) 10/15/23 22:19 MPV 8.9 fL (7.4-10.4) 10/15/23 22:19 Neut % (Auto) 66.8 % 10/15/23 22:19 Lymph % (Auto) 24.4 % 10/15/23 22:19 [place] % (Auto) 6.4 % 10/15/23 22:19 Eos % (Auto) 1.4 % 10/15/23 22:19 Baso % (Auto) 0.7 % 10/15/23 22:19 Neut # (Auto) 4.72 10^3/uL (1.8-7.7) 10/15/23 22:19 Lymph # (Auto) 1.7 10^3/uL (0.8-4.8) 10/15/23 22:19 [place] # (Auto) 0.5 10^3/uL (0.2-0.9) 10/15/23 22:19 Eos # (Auto) 0.1 10^3/uL (0.0-0.8) 10/15/23 22:19 Baso # (Auto) 0.1 10^3/uL (0.0-0.1) 10/15/23 22:19 Nucleated RBC % (auto) 0 % 10/15/23 22:19 Nucleated RBCs # 0.0 /100WBC 10/15/23 22:19 PT 14.00 SECONDS (12.1-14.9) 10/15/23 22:19 INR 1.05 (0.8-1.2) 10/15/23 22:19 Sodium 139 mmol/L (136-145) 10/15/23 22:19 Potassium 4.4 mmol/L (3.5-5.1) 10/15/23 22:19 Chloride 102 mmol/L (98-107) 10/15/23 22:19 Carbon Dioxide 30 mmol/L (22-29) H 10/15/23 22:19 Anion Gap 11.4 (5-19) 10/15/23 22:19 BUN 13 mg/dL (8-23) 10/15/23 22:19 Creatinine 0.5 mg/dL (0.5-0.9) 10/15/23 22:19 GFR Calculation 123.8 mL/min (90-130) 10/15/23 22:19 Glucose 114 mg/dL (65-115) 10/15/23 22:19 Calculated Osmolality 289 mOsm/kg (285-295) 10/15/23 22:19 Calcium 8.8 mg/dL (8.5-10.5) 10/15/23 22:19 Total Bilirubin 0.2 mg/dL (0.15-1.2) 10/15/23 22:19 AST 17 U/L (0-32) 10/15/23 22:19 ALT 10 U/L (0-33) 10/15/23 22:19 Alkaline Phosphatase 163 U/L (35-105) H 10/15/23 22:19 Total Protein 7.3 g/dL (6.6-8.7) 10/15/23 22:19 Albumin 3.8 g/dL (3.5-5.2) 10/15/23 22:19 Globulin 3.5 g/dL (1.3-4.6) 10/15/23 22:19 Blood Type O Positive 10/15/23 22:19 Rho(D) Type Rh positive 10/15/23 22:19 Antibody Screen Negative 10/15/23 22:19 All radiology interpretation(s) finalized by discharge Discharge Plan Discharge Patient Disposition: Admitted As Inpatient Admit Provider: Saurabh George Clinical Impression: Fall, Fracture of hip, left, closed Condition: Stable Coding Level of Care Code ED [employer] for Jade Gracia
--- NOTE | 2023-10-15 21:23 | XRR_ITS ---
PROCEDURE INFORMATION: Exam: XR Left Femur Exam date and time: 10/15/2023 9:24 PM Age: 63 years old Clinical indication: Injury or trauma; Prior surgery; Surgery date: <1 month; Surgery type: Lt long tfn; Patient HX: Lt lower ext pain post fall; Recent lt femur surg TECHNIQUE: Imaging protocol: Radiologic exam of the left femur. Views: 2 views. COMPARISON: CR XR femur LT min 2V* [id number] 10/15/2021 4:13 PM FINDINGS: Bones/joints: Acute fracture of the proximal femur shaft, new from 09/08/2023. Slightly increased angulation of the femoral head and neck junction with increased periosteal reaction especially along the medial side. Evidence of loosening/displacement of the internal fixation hardware, the tip of the femoral head screw now reaching the hip joint space. Soft tissues: Unremarkable. XR/XR femur LT min 2V* [id number] IMPRESSION: 1. Acute fracture of the proximal femur shaft new from 09/08/2023. 2. Evidence of loosening versus posttraumatic displacement of the femoral head screw, the tip now overlying the joint space. Slightly increased angulation and increased periosteal reaction of the femoral head and neck junction at the site of previous subtrochanteric fracture.
--- NOTE | 2023-10-15 21:27 | XRR_ITS ---
PROCEDURE INFORMATION: Exam: XR Chest Exam date and time: 10/15/2023 9:29 PM Age: 63 years old Clinical indication: Screening exam; Other screening; Patient HX: SOB post fall; Femur FX; Recent femur surg TECHNIQUE: Imaging protocol: Radiologic exam of the chest. Views: 1 view. COMPARISON: CR XR chest 1V [id number] 08/26/2023 12:59 PM FINDINGS: Lungs: Calcific nodular density overlying the right upper lung zone is unchanged, benign. No consolidation. Low lung volumes. Mild bandlike atelectasis/scarring in the right perihilar region. Mild diffuse peribronchial thickening and pulmonary vascular congestion. Pleural spaces: Unremarkable. No pleural effusion. No pneumothorax. Heart/Mediastinum: Stable mild cardiomegaly and widened appearance of the superior mediastinum likely contributed to by uncoiled aorta and possible aneurysm. Nonemergent follow-up recommended as clinically warranted. Bones/joints: No acute osseous abnormality. Partially imaged thoracolumbar fusion hardware. XR/XR chest 1V portable [id number] IMPRESSION: Mild bandlike atelectasis or scarring in the right midlung zone. Otherwise no significant interval change from 08/26/2023. Other findings detailed above.
--- NOTE | 2023-10-15 21:33 | XRR_ITS ---
PROCEDURE INFORMATION: Exam: XR Left Knee Exam date and time: 10/15/2023 9:37 PM Age: 63 years old Clinical indication: Injury or trauma; Prior surgery; Surgery date: <1 month; Surgery type: Lt long tfn; Patient HX: Lt lower ext pain post fall; Recent lt femur surg TECHNIQUE: Imaging protocol: Radiologic exam of the left knee. Views: 1 or 2 views. COMPARISON: CR XR knees AP WB w LT lmt ORTH 03/10/2022 10:29 AM FINDINGS: Bones/joints: No fracture or significant malalignment. No joint effusion. No significant arthropathy. Partially imaged femoral internal fixation jef. Soft tissues: Normal. XR/XR knee LT 1-2V [id number] IMPRESSION: No acute fracture.
--- NOTE | 2023-10-15 21:37 | ECG_ITS ---
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 Measurements Intervals [place] Rate: 81 P: 66 W[place]: 167 QRS: -17 QRSD: 90 T: 59 QT: 370 QTc: 431 Interpretive Statements SINUS RHYTHM SEPTAL MYOCARDIAL INFARCTION , PROBABLY OLD [40+ ms Q WAVE IN V1/V2] Compared to ECG 08/23/2023 13:18:47 Myocardial infarct finding now present Electronically Signed On 10-17-2023 12:37:18 CDT by Jorje Bran M.D. [id number]
[2023-10-15] MEDS: HYDROmorphone 1 mg/mL INJ 1 mL IVP ×3 (21:42→23:58)
[2023-10-15 22:28] LABS: Basophils # 0.1 10^3/uL (0.0-0.1); Basophils % 0.7 %; Eosinophils # 0.1 10^3/uL (0.0-0.8); Eosinophils % 1.4 %; Hematocrit 36.6 % (36-47); Lymphocytes # 1.7 10^3/uL (0.8-4.8); Lymphocytes % 24.4 %; Mean Corpuscular HGB Conc 31.4 g/dL (30-55); Mean Corpuscular Hemoglobin 30.3 pg (27-33); Mean Corpuscular Volume 96.6 fl (85-98); Mean Platelet Volume 8.9 fL (7.4-10.4); Monocytes # 0.5 10^3/uL (0.2-0.9); Monocytes % 6.4 %; Neutrophils # 4.72 10^3/uL (1.8-7.7); Neutrophils % 66.8 %; Nucleated Red Blood Cells % 0 %; Platelet Count 229 10^3/cmm (157-399); Red Blood Count 3.79 10^6/uL (3.85-5.65); Red Cell Distribution Width 13.5 % (12.1-15.1); White Blood Count 7.06 10^3/uL (3.29-11.43)
[2023-10-15 22:40] LABS: INR 1.05 (0.8-1.2)
[2023-10-15 22:46] LABS: Alanine Aminotransferase 10 U/L (0-33); Albumin Level 3.8 g/dL (3.5-5.2); Alkaline Phosphatase 163 U/L (35-105); Anion Gap 11.4 (5-19); Aspartate Amino Transferase 17 U/L (0-32); Blood Urea Nitrogen 13 mg/dL (8-23); Calcium 8.8 mg/dL (8.5-10.5); Carbon Dioxide 30 mmol/L (22-29); Chloride 102 mmol/L (98-107); Globulin 3.5 g/dL (1.3-4.6); Glomerular Filtration Rate 123.8 mL/min (90-130); Glucose 114 mg/dL (65-115); Osmolality Calculated 289 mOsm/kg (285-295); Potassium 4.4 mmol/L (3.5-5.1); Sodium 139 mmol/L (136-145); Total Bilirubin 0.2 mg/dL (0.15-1.2); Total Protein 7.3 g/dL (6.6-8.7)
--- NOTE | 2023-10-15 23:44 | P.HP_ITS ---
Providers/Chief Complaint 2 Admitting Physician: Saurabh George MD, hospitalist Primary Care Provider: Charity Salazar MD Chief Complaint: fall History of Present Illness Niki Agosto is a 63 year old female who presents to the emergency department today complaining of left hip and groin pain after a fall. She reports she tripped and fell. She denies any syncope, head injury, neck pain. She reports she fell about 4 days ago as well, and bruised her right forearm and right knee. She refers to another fall about 2 weeks ago. She tells me her balance is poor. She denies any recent illness, fever, cough. She denies any chest pain, headache or nausea. In August she had fallen, and sustained a fracture of the same left hip for which she underwent ORIF. She apparently was discharged on Eliquis, but reports she never took it. Review of Systems 2 Const: Denies: fever(s) Card: Denies: chest pain Resp: Denies: dyspnea GI: Denies: abdominal pain, nausea or vomiting Medications/Allergies Home Medications Medication Instructions Recorded Confirmed Last Taken Type levothyroxine 50 mcg capsule 50 mcg PO DAILY 07/04/19 09/08/23 08/23/23 History baclofen 20 mg tablet 20 mg PO QID PRN spasms 30 days 05/30/20 09/08/23 01/12/22 09:15 Rx #120 tabs duloxetine 30 mg capsule,delayed 60 mg PO DAILY 09/10/20 09/08/23 08/23/23 History release (Cymbalta) oxybutynin chloride 5 mg tablet See Rx Instructions .Route .COMPLEX 05/23/21 09/08/23 08/23/23 History oxybutynin chloride 10 mg 10 mg PO QPM 10/06/21 09/08/23 08/23/23 History tablet,extended release 24 hr temazepam 15 mg capsule (Restoril) 15 mg PO BEDTIME 01/09/22 09/08/23 08/22/23 History Bone Growth Stimulator E0748 #1 ea 01/12/22 09/08/23 Unknown Rx celecoxib 200 mg capsule 200 mg PO DAILY 07/26/23 09/08/23 08/23/23 History doxylamine succinate 25 mg tablet 25 mg PO Q6H PRN Insomnia 07/26/23 09/08/23 Unknown History lisinopril 10 mg tablet 10 mg PO DAILY 07/26/23 09/08/23 08/23/23 History omeprazole 40 mg capsule,delayed 40 mg PO DAILY 07/26/23 09/08/23 08/23/23 History release propranolol 40 mg tablet 40 mg PO BID 07/26/23 09/08/23 08/23/23 History ropinirole 0.5 mg tablet 0.5 mg PO BID 07/26/23 09/08/23 08/23/23 History gabapentin 300 mg capsule 300 mg PO DAILY PRN pain #10 caps 08/20/23 09/08/23 08/23/23 Rx albuterol sulfate 90 mcg/actuation 2 puff inhalation Q4H PRN 08/23/23 09/08/23 Unknown History aerosol inhaler Shortness Of Breath Or Wheezing sumatriptan succinate 100 mg tablet 100 mg PO DAILY PRN Migraine 08/23/23 09/08/23 Unknown History Headache calcium carbonate 600 mg-vitamin 1 tab PO DAILY #30 tabs 08/28/23 09/08/23 Unknown Rx D3 10 mcg (400 unit) tablet docusate sodium 100 mg capsule 100 mg PO BID PRN Constipation #14 08/28/23 09/08/23 Unknown Rx caps ferrous sulfate 325 mg (65 mg 325 mg PO BIDWM #60 tabs 08/28/23 09/08/23 Unknown Rx iron) tablet,delayed release furosemide 20 mg tablet 20 mg PO DAILY@0800 #30 tabs 08/28/23 09/08/23 Unknown Rx potassium chloride 8 mEq 8 meq PO DAILY #30 caps 08/28/23 09/08/23 Unknown Rx capsule,extended release apixaban 2.5 mg tablet (Eliquis) 2.5 mg PO BID #60 tabs 08/29/23 09/08/23 Unknown Rx Allergies Allergy/AdvReac Type Severity Reaction Status Date / Time Penicillins Allergy RASH Verified 09/08/23 10:24 Sulfa (Sulfonamide Allergy ANAPHYLAXIS Verified 09/08/23 10:24 Antibiotics) PFSH Acute 2 PFSH: Medical History At risk for polypharmacy Altered mental status Chronic hypertension Diagnosed at the age of 14 and controlled on medication managed by primary care provider. Anxiety and depression Currently on Cymbalta managed by her primary care provider. Hypothyroid Currently on levothyroxine managed by PMD No pertinent past medical history Denies: hypertension, diabetes, heart, lung, liver, kidney, thyroid, genital herpes, bleeding problems, or clotting problems. her primary care provider is Dr. Salazar Chronic low back pain without sciatica Currently on hydrocodone and baclofen managed by the pain clinic Surgical History History of back surgery 10/2020---jef placed in back S/P breast biopsy 2000-left breast-benign History of dental surgery tooth extraction Hx of section 03/26/89 History of ankle surgery 2006--LEFT x3. In [place] Family History Mother Family history of thyroid problem Thyroid disease Diabetes Hypertension Father Brain aneurysm Denies family history of Colon cancer Ovarian cancer DVT (deep venous thrombosis) Heart disease Breast cancer Suicide Pulmonary embolism Uterine cancer Social History (Updated 10/15/23 @ 23:48 by Saurabh George MD) Smoking and tobacco/nicotine status: never used tobacco/nicotine Alcohol intake: current Alcohol intake frequency: 0-2 Drinks per Day Substance/Drug Use: never Vitals/I&O/Wt Last Vital Signs Temp 98.1 F 10/15/23 20:17 Pulse 91 10/15/23 22:30 Resp 24 H 10/15/23 23:17 BP 140/90 10/15/23 22:30 Pulse Ox 98 10/15/23 23:17 O2 Del Method Room Air 10/15/23 22:30 Weight last 48 hrs Weight 95.254 kg Physical Exam 2 Narrative: General exam is white female, complaining of left groin pain. HEENT: Atraumatic normocephalic. Pupils equally round. Oropharynx clear Neck is supple no lymphadenopathy thyromegaly Cardiovascular regular in rhythm without murmur Lungs clear Abdomen is soft. Bowel sounds noted exam Portillo Extremities contusion noted right forearm. Right knee slightly swollen but no obvious deformity. Reporting pain left leg. Distal pulse intact. Skin no rash Neuro no obvious focal deficits Data 10/15/23 22:19 10/15/23 22:19 Other Labs: Left knee no evidence of fracture, reviewed by Chest x-ray reviewed by me bandlike atelectasis on the right. Some thoracic hardware. Widened mediastinum. Radiology suggests nonemergent follow-up with CT of chest. CTA done in January 2022, chest x-ray similar then, demonstrated no aneurysm Left femur x-ray demonstrates an acute fracture of the proximal femur shaft, loosening of hardware and displacement of femoral head screw Head CT right occipital scalp hematoma EKG reviewed by me demonstrates sinus rhythm, normal axis, no significant changes. A&P Assessment and plan (1) Fracture of hip, left, closed: Patient presents with fracture, of her left hip. She just had this repaired in August. N.p.o. Orthopedic consultation Check urinalysis Bedrest Pain control with Tylenol, oxycodone. Dilaudid for breakthrough pain. No direct contraindications to surgery. Hold MARYJANE inhibitor, as this could be associated with hypotension around time of surgery. CBC, CMP with a.m. labs Qualifiers: Encounter type: initial encounter Qualified Code(s): S72.002A - Fracture of unspecified part of neck of left femur, initial encounter for closed fracture (2) Fall: She has had multiple falls. Question polypharmacy. Check urine drug screen, TSH Therapy evaluation after fracture care Qualifiers: Encounter type: initial encounter Qualified Code(s): W19.XXXA - Unspecified fall, initial encounter Plan Hypertension. Continue propranolol. Hold MARYJANE inhibitor. Other medical problems as outlined in past medical history Full code currently SCDs for DVT prophylaxis. Hold other anticoagulation until following surgery. From my understanding she will have surgery later today Attestations 2 Medical Necessity Statement*: Will need greater than 2 midnight stay for evaluation and treatment of hip fracture Coding Level of Care Code Acute Code for [facility] Diagnoses Fracture of hip, left, closed S72.002A Encounter type: initial encounter Fall W19.XXXA Encounter type: initial encounter
--- NOTE | 2023-10-15 23:44 | XRR_ITS ---
PROCEDURE INFORMATION: Exam: XR Right Knee Exam date and time: 10/15/2023 11:50 PM Age: 63 years old Clinical indication: Injury or trauma; Fall; Other: Pain; Additional info: Fall, edema TECHNIQUE: Imaging protocol: Radiologic exam of the right knee. Views: 1 or 2 views. COMPARISON: NM bone scan whole body* [id number] 08/25/2023 9:00 AM FINDINGS: Bones/joints: Moderate spurring in the patellofemoral and lateral compartment. Moderate degenerative narrowing of the lateral compartment. Soft tissues: Normal. XR/XR knee RT 1-2V [id number] IMPRESSION: No acute fracture.
--- NOTE | 2023-10-15 23:44 | XRR_ITS ---
PROCEDURE INFORMATION: Exam: XR Right Forearm Exam date and time: 10/15/2023 11:54 PM Age: 63 years old Clinical indication: Injury or trauma; Fall; Other: Pain; Additional info: Contusion, fall TECHNIQUE: Imaging protocol: Radiologic exam of the right forearm. Views: 2 views. COMPARISON: NM bone scan whole body* [id number] 08/25/2023 9:00 AM FINDINGS: Bones/joints: No acute fracture. No evidence of dislocation of the elbow or wrist on this nondedicated study. Soft tissues: Mild soft tissue swelling of the medial elbow. XR/XR forearm RT 2V [id number] IMPRESSION: No acute osseous abnormality. Mild soft swelling of the medial elbow.
[2023-10-16] VITALS (27 sets, daily range): BP systolic 97–137; BP diastolic 57–84; PULSE 70–128; RESP 14–20; TEMP 36.3–37.8; O2SAT 92–100
--- NOTE | 2023-10-16 | XR_ITS ---
WS: [id number] C-[facility] RADIOGRAPHS LEFT HIP; 9 IMAGES HISTORY: GUILLERMO PICS COMPARISON: None available. Intraoperative imaging during ORIF proximal femur fracture. Long intramedullary jef with distal locki ng screws. Proximal cerclage wires. Large screw through the femoral neck. XR/XR hip LT 2-3V wo/w pel* [id number] IMPRESSION: Intraoperative imaging during ORIF proximal LEFT femur fracture in good positio n and alignment.
[2023-10-16] MEDS: sodium chloride 0.9% 1,000 ML 100 ML IV ×3 (00:53→20:12)
[2023-10-16] MEDS: oxyCODONE 5 mg IR Tab/Cap PO ×2 (00:54→20:51)
[2023-10-16 00:57] LABS: Glucose Urine UA Norm (Normal); Ketones Urine Negative (Negative); Protein Urine Neg (Negative); Specific Gravity, Urine 1.005 (1.005-1.030); Urine Appearance Clear (CLEAR); Urine Color Colorless (Yellow); pH Urine 7 (5-7)
[2023-10-16 00:58] LABS: Amphetamines Screen Urine Negative (Negative); Bacteria Urine TRACE /hpf; Barbiturates Screen Urine Negative (Negative); Benzodiazepines Screen Urine Positive (Negative); Bilirubin Urine Neg (Negative); Blood Urine Neg (Negative); Cocaine Screen Urine Negative (Negative); Leukocyte Esterase Urine Negative (Negative); Mucus Urine TRACE /hpf; Nitrate Urine Negative (Negative); Opiate Screen Urine Positive (Negative); PCP Screen Urine Negative (Negative); RBC Urine 0-4 /hpf (0-2); Squamous Epithelial Cell Urine 0-4 /hpf (0-5); THC Screen Urine Negative (Negative); Urobilinogen Urine Neg (Negative); WBC Urine 0-4 /hpf (0-5)
[2023-10-16 01:10] LABS: Thyroid Stimulating Hormone 1.72 uIU/mL (0.27-4.20)
[2023-10-16] MEDS: HYDROmorphone 1 mg/mL INJ 1 mL IVP ×3 (03:28→18:15)
[2023-10-16 05:56] LABS: Basophils % 0.5 %; Eosinophils # 0.1 10^3/uL (0.0-0.8); Hematocrit 32.9 % (36-47); Lymphocytes # 1.6 10^3/uL (0.8-4.8); Lymphocytes % 29.1 %; Mean Corpuscular Hemoglobin 30.2 pg (27-33); Mean Corpuscular Volume 97.3 fl (85-98); Mean Platelet Volume 9.3 fL (7.4-10.4); Monocytes # 0.6 10^3/uL (0.2-0.9); Monocytes % 9.9 %; Neutrophils # 3.23 10^3/uL (1.8-7.7); Nucleated Red Blood Cells % 0 %; Platelet Count 208 10^3/cmm (157-399); Red Blood Count 3.38 10^6/uL (3.85-5.65); Red Cell Distribution Width 13.4 % (12.1-15.1); White Blood Count 5.57 10^3/uL (3.29-11.43)
[2023-10-16 06:15] LABS: Alanine Aminotransferase 9 U/L (0-33); Albumin Level 3.5 g/dL (3.5-5.2); Alkaline Phosphatase 138 U/L (35-105); Anion Gap 10.6 (5-19); Aspartate Amino Transferase 17 U/L (0-32); Blood Urea Nitrogen 12 mg/dL (8-23); Calcium 7.8 mg/dL (8.5-10.5); Carbon Dioxide 30 mmol/L (22-29); Chloride 108 mmol/L (98-107); Globulin 2.7 g/dL (1.3-4.6); Glomerular Filtration Rate 123.8 mL/min (90-130); Glucose 97 mg/dL (65-115); Magnesium 1.9 mg/dL (1.7-2.3); Osmolality Calculated 298 mOsm/kg (285-295); Potassium 4.6 mmol/L (3.5-5.1); Sodium 144 mmol/L (136-145); Total Bilirubin 0.2 mg/dL (0.15-1.2); Total Protein 6.2 g/dL (6.6-8.7)
--- NOTE | 2023-10-16 12:12 | P.CONIM_ITS ---
Providers/Reason For Consult 2 Consulting Physician/Specialty*: Valdemar Nelson DO/orthopedic surgery Reason for Consult*: Left femur failure of deep orthopedic hardware with new left proximal femur fracture as well as femoral head screw protruding into hip joint Requesting Physician: Dr. Shaw Attending Physician: Anabel Gregory MD Primary Care Provider: Charity Salazar MD History of Present Illness History of Present Illness Niki Agosto is a 63 year old female presents after a new ground-level fall to the left hip. Patient had a recent left hip trochanteric femur nail for a bisphosphonate subtrochanteric femur fracture was fixed by my partner Dr. Zhu on 08/24/2023. She had been most recently seen by Dr. Zhu on 09/08/2023 for 2- week postop at this point in time Hardware was stable. She now today had presented the emergency department with a fall and now has superior lateral migration of the lag screw through the femoral head into the joint as well as new fractures around the jef along the subtrochanteric region as well as into the femur shaft. At this point time orthopedics was consulted for treatment recommendations. Hospitalist admitted patient as primary. Patient's been unable to bear weight to the left lower extremity denies any other complaints at this time besides slight forearm bruising on the right side. With negative x- rays Medications/Allergies Home Medications Medication Instructions Recorded Confirmed Last Taken Type levothyroxine 50 mcg capsule 50 mcg PO DAILY 07/04/19 10/16/23 10/15/23 10:00 History baclofen 20 mg tablet 20 mg PO QID PRN spasms 30 days 05/30/20 10/16/23 10/15/23 11:00 Rx #120 tabs duloxetine 30 mg capsule,delayed 60 mg PO DAILY 09/10/20 10/16/23 10/15/23 10:00 History release (Cymbalta) oxybutynin chloride 5 mg tablet See Rx Instructions .Route .COMPLEX 05/23/21 10/16/23 10/15/23 10:00 History oxybutynin chloride 10 mg 10 mg PO QPM 10/06/21 10/16/23 10/15/23 10:00 History tablet,extended release 24 hr temazepam 15 mg capsule (Restoril) 15 mg PO BEDTIME 01/09/22 10/16/23 08/22/23 History Bone Growth Stimulator E0748 #1 ea 01/12/22 10/16/23 Unknown Rx celecoxib 200 mg capsule 200 mg PO DAILY 07/26/23 10/16/23 10/15/23 10:00 History lisinopril 10 mg tablet 10 mg PO DAILY 07/26/23 10/16/23 10/15/23 10:00 History omeprazole 40 mg capsule,delayed 40 mg PO DAILY 07/26/23 10/16/23 10/15/23 10:00 History release propranolol 40 mg tablet 40 mg PO BID 07/26/23 10/16/23 10/15/23 10:00 History ropinirole 0.5 mg tablet 0.5 mg PO BID 07/26/23 10/16/23 10/15/23 10:00 History sumatriptan succinate 100 mg tablet 100 mg PO DAILY PRN Migraine 08/23/23 10/16/23 10/15/23 10:00 History Headache Allergies Allergy/AdvReac Type Severity Reaction Status Date / Time Penicillins Allergy RASH Verified 10/16/23 00:28 Sulfa (Sulfonamide Allergy ANAPHYLAXIS Verified 10/16/23 00:28 Antibiotics) Current Medications Generic Name Dose Route Start Last Admin Trade Name Freq PRN Reason Stop Dose Admin Docusate Sodium 100 mg 10/16/23 09:00 10/16/23 07:50 Docusate Sodium 100 Mg Capsule PO Not Given BID VERONICA Duloxetine HCl 60 mg 10/16/23 09:00 10/16/23 07:51 Duloxetine 30 Mg Capsule PO Not Given DAILY VERONICA Hydromorphone HCl 1 mg 10/16/23 00:14 10/16/23 11:25 Hydromorphone 1 Mg/Ml Inj 1 Ml IVP 1 mg Q2H PRN Administration MODERATE TO SEVERE PAIN Sodium Chloride 1,000 mls @ 100 mls/hr 10/16/23 00:14 10/16/23 11:22 Sodium Chloride 0.9% IV 100 mls/hr .Q10H VERONICA Administration Levothyroxine Sodium 50 mcg 10/16/23 09:00 10/16/23 07:51 Levothyroxine 50 Mcg Tablet PO Not Given DAILY VERONICA Oxycodone HCl 5 mg 10/16/23 00:14 10/16/23 00:54 Oxycodone 5 Mg Ir Tab/Cap PO 5 mg Q6H PRN Administration SEVERE PAIN Pantoprazole Sodium 40 mg 10/16/23 09:00 10/16/23 07:[address] 40 Mg Tablet PO Not Given DAILY VERONICA Propranolol HCl 40 mg 10/16/23 09:00 10/16/23 07:51 Propranolol 40 Mg Tablet PO Not Given BID VERONICA Ropinirole HCl 0.5 mg 10/16/23 09:00 10/16/23 07:52 Ropinirole 0.25 Mg Tablet PO Not Given BID VERONICA PFSH Acute 2 PFSH: Medical History At risk for polypharmacy Altered mental status Chronic hypertension Diagnosed at the age of 14 and controlled on medication managed by primary care provider. Anxiety and depression Currently on Cymbalta managed by her primary care provider. Hypothyroid Currently on levothyroxine managed by PMD No pertinent past medical history Denies: hypertension, diabetes, heart, lung, liver, kidney, thyroid, genital herpes, bleeding problems, or clotting problems. her primary care provider is Dr. Salazar Chronic low back pain without sciatica Currently on hydrocodone and baclofen managed by the pain clinic Surgical History History of back surgery 10/2020---jef placed in back S/P breast biopsy 2000-left breast-benign History of dental surgery tooth extraction Hx of section 03/26/89 History of ankle surgery 2006--LEFT x3. In [place] Family History Mother Family history of thyroid problem Thyroid disease Diabetes Hypertension Father Brain aneurysm Denies family history of Colon cancer Ovarian cancer DVT (deep venous thrombosis) Heart disease Breast cancer Suicide Pulmonary embolism Uterine cancer Social History (Updated 10/15/23 @ 23:48 by Saurabh George MD) Smoking and tobacco/nicotine status: never used tobacco/nicotine Alcohol intake: current Alcohol intake frequency: 0-2 Drinks per Day Substance/Drug Use: never Vitals/I&O/Wt Last Vital Signs Temp 100.0 F H 10/16/23 12:11 Pulse 124 H 10/16/23 12:11 Resp 20 H 10/16/23 12:11 BP 122/82 10/16/23 12:11 Pulse Ox 92 10/16/23 12:11 O2 Del Method Nasal Cannula 10/16/23 12:11 O2 Flow Rate 3 10/16/23 12:11 10/15/23 10/16/23 10/16/23 22:59 06:59 14:59 Intake Total 1000 / 1000 Output Total 1375 / 1375 Balance -1375 / -1375 1000 / 1000 Weight last 48 hrs Weight 238 lb 6.4 oz Weight 210 lb Physical Exam 2 Narrative: Orthopedic specific examination: Examination patient demonstrates the left hip is flexed and internally rotated. Significant tenderness palpation left hip the compartments are soft and compressible patient has no signs of infections previous incisions are all well- healed she has normal swelling given new fracture to the left hip. Distally she can wiggle her toes as well as plantarflex and dorsiflex the ankle. No tenderness palpation distally at the knee. She does have significant pain with logroll examination no tenderness palpation lumbar spine out of her normal as she does have low back pain at baseline. Secondary survey examination demonstrates patient has mild tenderness to the forearm over some bruising of the right forearm. She is able to actively wiggle her fingers as well as move her elbow and shoulder to the bilateral upper extremities. The right lower extremity has negative logroll examination as well as able to wiggle toes plantarflex and dorsiflex ankle. No other deformities noted to the rest of the extremities. Urinary Catheter Management: Portillo: Cath Placed During This Visit: yes Reason for Continuing Indwelling Catheter: Required Immobilization for Trauma or Surgery or Anesthesia Urinary Catheter Date of Insertion: 10/15/23 Urinary Catheter Time of Insertion: 22:30 Data 10/16/23 05:30 10/16/23 05:30 Xray Ortho: My impression: X-rays multiple views of the left femur and hip demonstrate previous long trochanteric femur nail now with superior migration of the lag screw into the hip joint as well as new fracturing along the subtrochanteric region into the femur shaft as well as now a significant varus deformity of the femur hip. X- rays of the forearm reviewed demonstrate no acute fracture or dislocation minimal swelling noted. Overall the hip joint and acetabulum does not appear to have any significant arthritis or degenerative changes noted. A&P Assessment and plan (1) Fracture of hip, left, closed: Qualifiers: Encounter type: initial encounter Qualified Code(s): S72.002A - Fracture of unspecified part of neck of left femur, initial encounter for closed fracture (2) Fall: Qualifiers: Encounter type: initial encounter Qualified Code(s): W19.XXXA - Unspecified fall, initial encounter Plan Patient presents with fracture, of her left hip. She just had this repaired in August. N.p.o. Orthopedic consultation Nonweightbearing left lower extremity Pain control Labs reviewed Imaging reviewed Plan for OR today for left femur removal of deep orthopedic hardware, open reduction internal fixation left proximal femur with trochanteric femur nail fixation. Patient presents with a new fall and fracture as well as. Orthopedic hardware on the proximal femur due to a previously fixed subtrochanteric femur fracture which is review of chart sounds to be from a bisphosphonate atypical subtrochanteric femur fracture. Given she is now fracture around the hardware fall and varus deformity and a protrusion of the lag screw would recommend surgical intervention she understands and agrees to proceed with this risk- benefit complication alternatives of surgery were thoroughly discussed with patient she understands the risk of surgery which include but not limited to make a better make it worse malunion nonunion failure of hardware, further surgery, infection, persistent pain. Understanding risk of surgery elects proceed all questions answered at this time. For earlier mobilization as well as goals of earlier weightbearing would recommend surgical intervention she understands and agrees to proceed with this. Plan will be for removal of the left femur previous orthopedic hardware as this is now failed and protruded out with a plan for open reduction internal fixation and a new trochanteric femur nail with correction of patient's varus deformity of the left hip. She understands agrees current plan. Questions answered. Today she did have 100.0 fever I did discuss this with the hospitalist at this point time there is no active signs of any type of infection her labs are stable I feel this is more reactionary due to inflammatory process of her new periprosthetic fracture as well as potentially with pain medication noninfectious and I do not feel as though patient would benefit from delaying any further with her surgery. She understands and agrees to proceed all questions answered. This was staffed with hospitalist and she agrees patient has been medically optimized to proceed with surgery today. All questions answered Coding Level of Care Code Acute Code for [facility] Diagnoses Fracture of hip, left, closed S72.002A Encounter type: initial encounter Fall W19.XXXA Encounter type: initial encounter
--- NOTE | 2023-10-16 12:12 | PC.NURSE ---
Pt to the Operating Room at this time per OR staff
[2023-10-16] MEDS: ketorolac 30 mg/mL INJ IVP ×2 (12:26→18:26)
[2023-10-16] MEDS: acetaminophen 1,000 MG/100 ML PIGGYBACK 400 MG IV (12:30)
--- NOTE | 2023-10-16 12:32 | W.PM.OPSUD ---
Surgery/Procedure H&P Update DATE OF PROCEDURE: October 16, 2023 DATE H&P PERFORMED: 10/16/23 H&P UPDATE INFORMATION: I have reviewed H&P completed within last 30 days, I have examined patient prior to procedure and No changes to prior documentation CHANGES TO PREVIOUS DOCUMENTATION: Plan to proceed to the OR today PREOP DIAGNOSIS: Left hipFemur fracture with hardware failure PRIMARY INDICATION FOR PROCEDURE: Left hip femur fracture with orthopedic hardware failure PLANNED PROCEDURE: Operation Date: 10/16/23 11:50 Proposed Procedures p Hardware Removal Hip Screw(Left) - DO miguel Luna ORIF Left Subtrochanteric femur fracture(Left) - DO miguel Luna Trochanteric Femoral Nail(Left) - Valdemar Nelson DO
[2023-10-16] MEDS: lactated ringers 500 ML IV (12:37)
--- NOTE | 2023-10-16 12:43 | ANES.PREANE2 ---
Pre-Anesthetic Assessment Height/Weight: Height 1.7 m Weight 108.136 kg Temp Pulse Resp BP Pulse Ox O2 Del Method O2 Flow Rate 100.0 F H 124 H 20 H 122/82 92 Nasal Cannula 3 10/16/23 12:11 10/16/23 12:11 10/16/23 12:11 10/16/23 12:11 10/16/23 12:11 10/16/23 12:11 10/16/23 12:11 Preop Diagnosis: Left hipFemur fracture with hardware failure Operation Date: 10/16/23 11:50 Proposed Procedures p Hardware Removal Hip Screw(Left) - Valdemar Vanderburgh, DO s ORIF Left Subtrochanteric femur fracture(Left) - Valdemar Vanderburgh, DO s Trochanteric Femoral Nail(Left) - Valdemar Vanderburgh, DO Was Beta Sandie taken within 24 hours: Yes Was Clonidine taken within 24 hours: N/A Last intake: Intake Last Liquid Date 10/15/23 Last Liquid Time 12:00 Last Solid Date 10/15/23 Last Solid Time 08:00 Social Alcohol and No tobacco Exam alert, oriented x 3, clear to auscultation bilaterally and regular rate & rhythm (Heart Rate-108/min) Airway Submandibular: within normal limits Cervical ROM: within normal limits Mallampati: Class II CV/HEM Anemia and Hypertension GI Gastroesophageal Reflux Disease Musc/skel Lower Back Pain and Osteoarthritis/DJD s/p lumbar surgery x3 Neuropsych Depression Anesthetic Plan ASA status: 3E Anesthesia: General Medications/Allergies Home Medications Medication Instructions Recorded Confirmed Last Taken Type levothyroxine 50 mcg capsule 50 mcg PO DAILY 07/04/19 10/16/23 10/15/23 10:00 History baclofen 20 mg tablet 20 mg PO QID PRN spasms 30 days 05/30/20 10/16/23 10/15/23 11:00 Rx #120 tabs duloxetine 30 mg capsule,delayed 60 mg PO DAILY 09/10/20 10/16/23 10/15/23 10:00 History release (Cymbalta) oxybutynin chloride 5 mg tablet See Rx Instructions .Route .COMPLEX 05/23/21 10/16/23 10/15/23 10:00 History oxybutynin chloride 10 mg 10 mg PO QPM 10/06/21 10/16/23 10/15/23 10:00 History tablet,extended release 24 hr temazepam 15 mg capsule (Restoril) 15 mg PO BEDTIME 01/09/22 10/16/23 08/22/23 History Bone Growth Stimulator [id number] #1 ea 01/12/22 10/16/23 Unknown Rx celecoxib 200 mg capsule 200 mg PO DAILY 07/26/23 10/16/23 10/15/23 10:00 History lisinopril 10 mg tablet 10 mg PO DAILY 07/26/23 10/16/23 10/15/23 10:00 History omeprazole 40 mg capsule,delayed 40 mg PO DAILY 07/26/23 10/16/23 10/15/23 10:00 History release propranolol 40 mg tablet 40 mg PO BID 07/26/23 10/16/23 10/15/23 10:00 History ropinirole 0.5 mg tablet 0.5 mg PO BID 07/26/23 10/16/23 10/15/23 10:00 History sumatriptan succinate 100 mg tablet 100 mg PO DAILY PRN Migraine 08/23/23 10/16/23 10/15/23 10:00 History Headache Allergies Allergy/AdvReac Type Severity Reaction Status Date / Time Penicillins Allergy RASH Verified 10/16/23 00:28 Sulfa (Sulfonamide Allergy ANAPHYLAXIS Verified 10/16/23 00:28 Antibiotics) Current Medications Generic Name Dose Route Start Last Admin Trade Name Freq PRN Reason Stop Dose Admin Docusate Sodium 100 mg 10/16/23 09:00 10/16/23 07:50 Docusate Sodium 100 Mg Capsule PO Not Given BID VERONICA Duloxetine HCl 60 mg 10/16/23 09:00 10/16/23 07:51 Duloxetine 30 Mg Capsule PO Not Given DAILY VERONICA Hydromorphone HCl 1 mg 10/16/23 00:14 10/16/23 11:25 Hydromorphone 1 Mg/Ml Inj 1 Ml IVP 1 mg Q2H PRN Administration MODERATE TO SEVERE PAIN Sodium Chloride 1,000 mls @ 100 mls/hr 10/16/23 00:14 10/16/23 11:22 Sodium Chloride 0.9% IV 100 mls/hr .Q10H VERONICA Administration Lactated Ringer's 500 mls @ 500 mls/hr 10/16/23 12:45 10/16/23 12:37 Lactated Ringers IV 10/16/23 13:44 500 mls/hr .Q1H ONE Administration Levothyroxine Sodium 50 mcg 10/16/23 09:00 10/16/23 07:51 Levothyroxine 50 Mcg Tablet PO Not Given DAILY VERONICA Oxycodone HCl 5 mg 10/16/23 00:14 10/16/23 00:54 Oxycodone 5 Mg Ir Tab/Cap PO 5 mg Q6H PRN Administration SEVERE PAIN Pantoprazole Sodium 40 mg 10/16/23 09:00 10/16/23 07:[address] 40 Mg Tablet PO Not Given DAILY VERONICA Propranolol HCl 40 mg 10/16/23 09:00 10/16/23 07:51 Propranolol 40 Mg Tablet PO Not Given BID VERONICA Ropinirole HCl 0.5 mg 10/16/23 09:00 10/16/23 07:52 Ropinirole 0.25 Mg Tablet PO Not Given BID VERONICA PFSH Anesthesia Medical History At risk for polypharmacy Altered mental status Chronic hypertension Diagnosed at the age of 14 and controlled on medication managed by primary care provider. Anxiety and depression Currently on Cymbalta managed by her primary care provider. Hypothyroid Currently on levothyroxine managed by PMD No pertinent past medical history Denies: hypertension, diabetes, heart, lung, liver, kidney, thyroid, genital herpes, bleeding problems, or clotting problems. her primary care provider is Dr. Salazar Chronic low back pain without sciatica Currently on hydrocodone and baclofen managed by the pain clinic Surgical History History of back surgery 10/2020---jef placed in back S/P breast biopsy 2000-left breast-benign History of dental surgery tooth extraction Hx of section 03/26/89 History of ankle surgery 2006--LEFT x3. In [place] Family History Mother Family history of thyroid problem Thyroid disease Diabetes Hypertension Father Brain aneurysm Denies family history of Colon cancer Ovarian cancer DVT (deep venous thrombosis) Heart disease Breast cancer Suicide Pulmonary embolism Uterine cancer Social History (Updated 10/15/23 @ 23:48 by Saurabh George MD) Smoking and tobacco/nicotine status: never used tobacco/nicotine Alcohol intake: current Alcohol intake frequency: 0-2 Drinks per Day Substance/Drug Use: never Data Anesthesia 10/16/23 05:30 10/16/23 05:30 Short CBC 10/15/23 10/16/23 Range/Units 22:19 05:30 WBC 7.06 5.57 (3.29-11.43) 10^3/uL Hgb 11.50 10.20 L (11.27-16.99) g/dL Hct 36.6 32.9 L (36-47) % MCV 96.6 97.3 (85-98) fl Plt Count 229 208 (157-399) 10^3/cmm Neut % (Auto) 66.8 58.0 % Neut # (Auto) 4.72 3.23 (1.8-7.7) 10^3/uL BMP 10/15/23 10/16/23 22:19 05:30 Sodium 139 144 Potassium 4.4 4.6 Chloride 102 108 H Carbon Dioxide 30 H 30 H BUN 13 12 Creatinine 0.5 0.5 Glucose 114 97 Calcium 8.8 7.8 L Liver Function 10/15/23 10/16/23 Range/Units 22:19 05:30 Total Bilirubin 0.2 0.2 (0.15-1.2) mg/dL AST 17 17 (0-32) U/L ALT 10 9 (0-33) U/L Alkaline Phosphatase 163 H 138 H (35-105) U/L Albumin 3.8 3.5 (3.5-5.2) g/dL Urine 10/16/23 Range/Units 00:00 Urine Color Colorless (Yellow) Urine Appearance Clear (CLEAR) Urine pH 7 (5-7) Ur Specific [place] 1.005 (1.005-1.030) Urine Protein Neg (Negative) Urine Glucose (UA) Norm (Normal) Urine Ketones Negative (Negative) Urine Nitrate Negative (Negative) Urine Bilirubin Neg (Negative) Ur Leukocyte Esterase Negative (Negative) Urine RBC 0-4 H (0-2) /hpf Urine WBC 0-4 H (0-5) /hpf Blood Bank 10/15/23 22:19 Blood Type O Positive Rho(D) Type Rh positive Antibody Screen Negative Coags 10/15/23 22:19 PT 14.00 INR 1.05 Cardiac Studies: Echocardiogram 08/24/23
[2023-10-16] MEDS: clindamycin 900 MG/50 ML PREMIX 100 MG IV ×2 (13:39→23:04)
[2023-10-16] MEDS: tranexamic acid 1,000 mg/10mL SDV 1000 MG (13:45)
[2023-10-16] MEDS: vancomycin 1,000 MG SDV 1000 MG XX ×2 (14:51→17:14)
--- NOTE | 2023-10-16 15:00 | P.PN_ITS ---
Subjective 2 Subjective: Seen this morning. Patient in significant pain. Going to surgery shortly. Vitals/I&O/Wt Last Vital Signs Temp 100.0 F H 10/16/23 12:11 Pulse 124 H 10/16/23 12:11 Resp 20 H 10/16/23 12:11 BP 122/82 10/16/23 12:11 Pulse Ox 92 10/16/23 12:11 O2 Del Method Nasal Cannula 10/16/23 12:11 O2 Flow Rate 3 10/16/23 12:11 10/16/23 10/16/23 10/16/23 06:59 14:59 22:59 Intake Total 1150 / 1150 Output Total 1375 / 1375 Balance -1375 / -1375 1150 / 1150 Weight last 48 hrs Weight 108.136 kg Weight 95.254 kg Physical Exam 2 Narrative: General exam is white female, complaining of left groin pain. HEENT: Atraumatic normocephalic. Pupils equally round. Oropharynx clear Neck is supple no lymphadenopathy thyromegaly Cardiovascular regular in rhythm without murmur Lungs clear Abdomen is soft. Bowel sounds noted exam Portilol Extremities contusion noted right forearm. Right knee slightly swollen but no obvious deformity. Reporting pain left leg. Distal pulse intact. Hip is internally rotated. Significant tenderness to palpation of left hip. Skin no rash Neuro no obvious focal deficits Urinary Catheter Management: Portillo: Cath Placed During This Visit: yes Reason for Continuing Indwelling Catheter: Required Immobilization for Trauma or Surgery or Anesthesia Urinary Catheter Date of Insertion: 10/15/23 Urinary Catheter Time of Insertion: 22:30 Data 10/16/23 05:30 10/16/23 05:30 A&P Assessment and plan (1) Fracture of hip, left, closed: Patient presents with fracture, of her left hip. She just had this repaired in August. N.p.o. Orthopedic consultation Check urinalysis Bedrest Pain control with Tylenol, oxycodone. Dilaudid for breakthrough pain. No direct contraindications to surgery. Hold MARYJANE inhibitor, as this could be associated with hypotension around time of surgery. CBC, CMP with a.m. labs Qualifiers: Encounter type: initial encounter Qualified Code(s): S72.002A - Fracture of unspecified part of neck of left femur, initial encounter for closed fracture (2) Fall: She has had multiple falls. Question polypharmacy. Check urine drug screen, TSH Therapy evaluation after fracture care Qualifiers: Encounter type: initial encounter Qualified Code(s): W19.XXXA - Unspecified fall, initial encounter Plan Hypertension. Continue propranolol. Hold MARYJANE inhibitor. Other medical problems as outlined in past medical history Full code currently SCDs for DVT prophylaxis. Hold other anticoagulation until following surgery. F Today's plan 10/15 ? Patient seen by orthopedic surgeon Dr. Nelson. Discussed at length with him. ? Patient going for surgery shortly. ? She will need SNF placement at discharge. ? Expected to stay in the hospital at least 72 hours postsurgery. ? UA negative. ? Temp 100.0. Possibly reactive. No other indication of true infection. ? Ordered 2 units packed RBC to have on hold for surgery. Attestations 2 Medical Necessity Statement*: Will need greater than 2 midnight stay for evaluation and treatment of hip fracture Diagnoses Fracture of hip, left, closed S72.002A Encounter type: initial encounter Fall W19.XXXA Encounter type: initial encounter
--- NOTE | 2023-10-16 17:43 | P.BOP_ITS ---
Date of Procedure: 10/16/2023 Surgeon: Valdemar Nelson DO Lens Grinder Apprentice(s): Raj Nelson PA-C Procedure(s) performed: Left femur removal of deep orthopedic hardware (gamma nail removal) Left subtrochanteric femur and femur shaft fracture open reduction internal fixation with cabling Left proximal femur open reduction internal fixation with long cephalomedullary nail (trochanteric femur nail) Findings of the procedure(s): Patient was found to have failure of left trochanteric femur nail with protrusion into the hip socket of the lag screw as well as collapse of varus deformity and progression of fracture pattern to the subtrochanteric region into the femur shaft. Patient underwent procedure as planned. Intraoperatively patient's pressures were soft and did lose roughly 500 mL of blood I did order a unit of PRBC which she received intraoperatively to replace her volume loss with volume. Bleeding was stable once fracture achieved fixation and cabling rest of the procedure went as planned without issues or complications she did well from an anesthetic standpoint and plan for extubation as well as [facility] postoperatively from PACU. Continue to monitor on the floor will be toe-touch weightbearing to left lower extremity. Estimated blood loss: 500 mL Specimen(s) removed: Left hip trochanteric femur nail removed Post-operative diagnosis: Left hip failure orthopedic hardware with left proximal femur fracture and subtrochanteric and femur shaft region.
--- NOTE | 2023-10-16 17:46 | P.OP_ITS ---
Operative Report Date of procedure: October 16, 2023 Surgeon: Valdemar Nelson DO Rock Lather: Raj Nelson PA-C: PA was necessary for assistance in this case with leg positioning and protection of neurovascular structures as well as assistance in implantation/fixation, reduction wound closure and dressing application. Procedure: Preoperative diagnosis: Left hip femur fracture with orthopedic hardware failure Post-op diagnosis: Same, failed previous left hip long gamma nail, fracture pattern extension to femur shaft, intertrochanteric fracture with subtrochanteric extension Procedure done: Left femur removal of deep orthopedic hardware (gamma nail removal) Left subtrochanteric femur and femur shaft fracture open reduction internal fixation with cabling Left proximal femur open reduction internal fixation with long cephalomedullary nail (trochanteric femur nail) Implants: Wayne Howard 2.0 mm x 2 beaded cables GetAFive gamma?nail?long?13 mm x 400 mm x 125 degree Lag screw 10.5 mm x 110 mm Distal locking screw 5 mm x 42.5 and 50 mm Additional 6.5 mm x 95 mm cannulated screw with 2 washers Previous gamma nail removed Surgeon: Valdemar Nelson DO Estimated blood loss: 500 mL IV fluids: 1500 mL Urine output: 1100 mL Complications: Patient had low starting hemoglobin as well as 500 mL blood loss did receive 1 unit PRBC intraoperatively after being typed and screened Findings: See operative report narrative Condition: stable Disposition: Floor Brief History: Patient sustained a fall and was found to have a propagated fracture and failure of previous orthopedic hardware was initially treated with subtrochanteric femur fracture with a long gamma nail unfortunately she had a new fall fracture on the hardware has a protruding lag screw out of the femoral head as well as propagation of the fracture pattern into the femur shaft. At this point time Pt was admitted by the hospitalist team and orthopedics was consulted.? Refer to consult note for detailed HPI.? We talked about treatment options as far as nonoperative and operative intervention. Recommend Left hip trochanteric femur?nail removal with plan for open reduction internal fixation to rereduce the fracture pattern to get in better alignment and to place a new long gamma nail. At this point time patient would like to pursue surgical intervention for benefits of pain control and earlier mobilization.? ?Patient understands the ins and outs of procedure, the risk benefits complication alternatives of surgical nonsurgical treatment options.? Understanding risk of surgery pt agrees to proceed with surgical intervention all questions answered.? Consent obtained. Procedure: Patient seen evaluated in the preoperative holding area.? Consent was obtained.? Correct extremity was then marked.? Once cleared by anesthesia and the hospitalist team patient was taken back to the operative suite.? Patient underwent anesthesia per the anesthesia department.? Once appropriately anesthetized patient was placed on a fracture [place] table.? Patient was appropriately secured to the bed.? All bony prominences were well-padded.? At this point time patient received appropriate preoperative antibiotics.? Final timeout was performed.? Prior to beginning surgery confirmed fracture around previous gamma nail significant collapse into varus roughly 90 degrees of the femoral head as well as protrusion lag screw I did attempt to try and reduce this but given the previous hardware unable to do this and as result elected to prep and plan for open reduction and then will have my surveyor's assistant reduce fracture with [place] table. ?This point time the left lower extremity was then prepped and draped in standard orthopedic fashion. I started immediately with direct open approach to the subtrochanteric region and femur shaft extension. I extended patient's previous proximal incision distally to appropriate length at the fracture site. Patient did have considerable subcutaneous bleeding that was noted as well as a large significant fracture hematoma. This was evacuated I did call for type and screen and 2 units on hold and discussed with anesthesia and the go ahead and start giving patient 1 unit PRBC. Sharp scalpel incision was made through skin and subcutaneous tissue maintaining electrocautery to maintain hemostasis. At this point time did electrocautery split the IT band and then utilized a Ervin to split the vastus lateralis. Came down directly to fracture hematoma evacuated this and then direct visualization of the fracture site was noted. Given patient had the jef intramedullary my plan was to loosely place 2 cables around this in order to hold the reduction and fracture butterfly fragments in good position once the nail gets removed to pass the ball-tipped guidewire I used the Synthes cable passers and the GetAFive beaded cables I used my surveyor's assistant to place Hohmann retractors anteriorly and posteriorly I then utilized a Ervin to create a path directly on bone and then subsequently used the cable passer staying directly on bone 1 proximally 1 distally placed these to wear these were then subsequently passed and confirmed to be directly on bone as well. Preliminary cinched and tensioned but not crimped until the end of the case. Next I then proceeded with the nail extraction. There is no distal locking scre ws which was confirmed with fluoroscopic imaging. I then subsequently carried my incision approximately to the previous incision site and then split the gluteus fascia and then had direct visualization over the greater trochanter. This point in time I then used a K wire/guidewire to cannulate within to the nail. I used an awl to clear out any previous bony ingrowth into the nail site. Next I utilized the flexible hexhead screwdriver to remove the setscrew atraumatically. And then utilized the GetAFive extraction kit which was then screwed into the proximal portion of the body of the nail this was subsequently tightened while still maintaining the lag screw in place to allow excellent fixation of the nail proximally for backing this out. Once I had excellent fixation I then subsequently turned my attention toward the lag screw. I utilized the cannulated portion and threaded the guidewire through the cannulation of the lag screw subsequently used the lag screw extraction gravel truck driver and subsequently removed the lag screw atraumatically.. Once this was performed my surveyor's assistant helped me in backing out the intramedullary gamma nail. This was all removed atraumatically. At this point in time I then subsequently focused my attention on reduction and taking the neck out of varus. I perform satisfactory reduction maneuvers by my surveyor's assistant with utilizing the [place] bed as well as utilizing a mallet as well as a Ervin to disengage the neck and placed this in improved alignment. I aligned the medial calcar and then subsequently replan to place the long gamma nail. This reduction was then held by my surveyor's assistant while I placed the new long gamma nail. I started with a more medial starting point to hopefully help with my nails positioning. ? This was advanced in AP and lateral films to be in center center position and advanced to the level lesser trochanter.? This was confirmed to be in center center position on AP and lateral imaging.? Once this was done I then introduced my opening reamer which was then subsequently guide pin removed.? Next a?long?ball-tipped guidewire was then placed in center center position distally right at the superior pole the patella.? I then took a measurement which was 400 mm for length of the?long?nail?screw.? The fracture reduction was maintained during reaming and I subsequently utilized flexible reamers and reamed sequentially up to a size 15 mm and elected for a 13 mm?nail.? I selected a 13 mm x 400mm x 125 degree. At this point time the?nail?was then loaded onto the GetAFive gamma trochanteric?nail?guide.? This was placed within the canal and confirmed with XR and the setscrew was then gently placed not locked.? The?nail?was then impacted to appropriate depth .? X-rays were taken confirming appropriate positioning of the?nail?distally and reduction was maintained.? ?At this point time I then inserted my lag screw guide and the guide was placed directly onto bone.? Next I then subsequently placed the guidewire in center c enter position in the head with an appropriate tip to apex distance this was confirmed with multiple orthogonal images.? I impacted the nail down as far distal as I could and my guidewire Leann the inferior calcar and ended up right at roughly center center position in the head may be just a slight touch superiorly. It appeared that with the medial calcar even being in alignment patient likely had more of a even less degree varus than the 125 but this was the only angled nail that we had. I got this in satisfactory position purchasing the calcar had excellent bite with no tracking within the previous site and as result I excepted this position of the lag screw with plan to add a Pawels angle screw with 6.5mm cannulated screw. Once I was satisfied with my planned lag screw placement I then measured which was 110 mm.? I then set my cannulated drill and subsequently reamed this into the head at appropriate depth.? I then had my rep open the 10.5 mm x 110 mm lag screw which was then opened on the back table and subsequently screwed into place over my cannulated drill guide.? This was placed with excellent tip to apex distance.? Next I then utilized the compressing device and subsequently compressed my fracture after I let off traction.? This had excellent fracture compression and opposition and closing down to my fracture line.? Next I then locked the?nail?by locking my setscrew.? In order to increase fixation proximally I added on a 6.5 mm partially-threaded cannulated screw. I subsequently used the guidewire and went from direct lateral to medial position staying along the anterior cortex missing the lag screw and a Powells angle screw fashion this would allow better capturing of the femoral head along the inferior calcar. I drilled this into excellent position and took the hip through range of motion to confirm that this was outside of the joint with an approach withdrawal technique. I subsequently measured cannulated drilled selected a washer and a 95 mm 6.5 mm cannulated partially-threaded screw this was subsequently advanced into excellent position and had excellent purchase. I did attempt to place another guidewire but there was too much hardware and the neck was too narrow to accommodate for any additional screw fixation. This completed my fixation proximally. Next I obtained perfect circles distally at the knee to lock the?nail?distally.? I selected to first place my static screw in perfect [place] technique small stab incision was made blunt dissection of the bone and then utilizing a drill and perfect pyramid [place] technique drill bit was then advanced and confirmed to be within the?nail?utilizing fluoroscopic imaging I then subsequently drilled measured and placed appropriate length static locking screw.? I then subsequently added an additional screw in eccentric fashion for possible dynamization later if necessary this is placed at the central portion of the oblong hole subsequently drilled measured and placed appropriate length screw.? This completed my construct fixation the guide was subsequently removed.? At this point in time I then subsequently did my final tensioning of the cables as well as crimped and cut the excess wiring. And final images were taken.? AP and lateral of the Left proximal femur fracture which showed stable reduction and stable fixation.? Incision was then thoroughly irrigated.? Hemostasis was maintained with electrocautery.? I then once again thoroughly irrigated the incisions. I then subsequently placed vancomycin powder within the wound bed for infection prophylaxis. Close the vastus lateralis longitudinal split with #1 Ethibond suture and then subsequently closed the IT band with #1 strata fix. I then subsequently closed the rest of the incision in standard layered fashion of 0 Vicryl 2-0 Vicryl as well as 2 oh STRATAFIX suture and then the incision was then closed with josemanuel on the skin. This was then closed distally with 2-0 Vicryl and josemanuel. I then subsequently placed Xeroform over all the incision sites 4 x 4's ABDs and foam tape over the incision sites. Patient only received 1 unit PRBC intraoperatively.? Patient was then awakened from anesthesia transported onto the hospital bed and taken to PACU in stable condition.? Patient tolerated procedure without complications. Disposition: Patient taken to PACU in stable condition.? Postoperatively,? Patient to receive appropriate discharge instructions as well as pain medication DVT prophylaxis postoperatively.? She will be allowed toe touch-weightbearing Left lower extremity.? Will receive appropriate postoperative antibiotics, PT/OT.? Patient to follow-up in the orthopedic office in 2 weeks.? Patients family understands and agrees with current plan.? All questions answered.
--- NOTE | 2023-10-16 18:15 | P.PCN_ITS ---
PACU note Narrative: pt is 63-year-old female just underwent a left femur ORIF. Pt transferred to PACU in stable condition. Dressing is dry. pt is awake and alert. pt can wiggle toes and plantarflex and dorsiflex foot. pt unable to perform straight leg raise due to pain. Distal pulses are palpable toes are warm and well- perfused. Cap refill is normal and under 2 seconds. Sensation to foot is intact. Pain is controlled. Exam: awake Disposition: back to floor
--- NOTE | 2023-10-16 19:01 | XRR_ITS ---
PROCEDURE INFORMATION: Exam: XR Left Femur Exam date and time: 10/17/2023 9:51 AM Age: 63 years old Clinical indication: Device placement; Other: L femur FX orif; Prior surgery; Surgery date: Post-operative (0-2 days) TECHNIQUE: Imaging protocol: Radiologic exam of the left femur. Views: 2 views. COMPARISON: CR XR femur LT min 2V* [id number] 10/15/2023 9:24 PM FINDINGS: Bones/joints: Interval postsurgical change shows improved proximal femur fracture alignment with single intact screw through the femoral neck and 2 intact cerclage wires about the proximal femur as well as 2 screws at the distal femoral nail. Improved alignment of intramedullary nail and femoral neck screw fixation. Joint spacing and alignment appear maintained. Soft tissues: Lateral thigh soft tissue swelling and emphysema with overlying skin josemanuel. XR/XR femur LT min 2V* [id number] IMPRESSION: Interval left femur postsurgical hardware with improved fracture alignment.
[2023-10-16] MEDS: mupirocin oint 22 gm 1 APPLIC NASAL (20:11)
[2023-10-16] MEDS: calcium carb-vit d 600mg/400unit 1 Tablet 1 EACH PO (20:11)
[2023-10-16] MEDS: iron polysaccharide complex 150 mg Capsule PO (20:11)
[2023-10-16] MEDS: docusate sodium 100 mg Capsule PO (20:11)
[2023-10-16] MEDS: HYDROmorphone 1 mg/mL INJ 1 mL 0.5 MG IVP (21:33)
[2023-10-16] MEDS: tranexamic acid 1,000 MG/100 ML PREMIX 600 MG IV (21:34)
[2023-10-16 22:30] LABS: Basophils % 0.2 %; Hematocrit 30.5 % (36-47); Lymphocytes # 0.9 10^3/uL (0.8-4.8); Mean Corpuscular HGB Conc 31.1 g/dL (30-55); Mean Corpuscular Hemoglobin 30.5 pg (27-33); Mean Corpuscular Volume 98.1 fl (85-98); Mean Platelet Volume 9.3 fL (7.4-10.4); Monocytes # 0.6 10^3/uL (0.2-0.9); Monocytes % 5.2 %; Neutrophils # 10.65 10^3/uL (1.8-7.7); Neutrophils % 87.2 %; Nucleated Red Blood Cells % 0 %; Platelet Count 240 10^3/cmm (157-399); Red Blood Count 3.11 10^6/uL (3.85-5.65); Red Cell Distribution Width 13.7 % (12.1-15.1); White Blood Count 12.23 10^3/uL (3.29-11.43)
[2023-10-16] MEDS: ketorolac 30 mg/mL INJ 15 MG IVP (23:03)
[2023-10-17] VITALS (22 sets, daily range): BP systolic 96–130; BP diastolic 59–89; PULSE 74–117; RESP 16–18; TEMP 36.4–37.6; O2SAT 93–99
[2023-10-17] MEDS: TRAMadol 50 mg Tablet PO ×2 (00:32→08:26)
[2023-10-17] MEDS: HYDROmorphone 1 mg/mL INJ 1 mL 0.5 MG IVP ×2 (01:36→15:25)
[2023-10-17] MEDS: HYDROmorphone 1 mg/mL INJ 1 mL IVP ×3 (05:16→10:12)
[2023-10-17] MEDS: sodium chloride 0.9% 1,000 ML 100 ML IV ×2 (05:16→20:10)
[2023-10-17] MEDS: clindamycin 900 MG/50 ML PREMIX 100 MG IV ×2 (06:12→15:26)
[2023-10-17] MEDS: levothyroxine 50 mcg Tablet PO (06:12)
[2023-10-17] MEDS: enoxaparin 40 mg/0.4 mL Syringe SUBCUT (06:12)
[2023-10-17 07:28] LABS: Basophils % 0.3 %; Lymphocytes # 1.1 10^3/uL (0.8-4.8); Lymphocytes % 14.7 %; Mean Corpuscular HGB Conc 31.6 g/dL (30-55); Mean Corpuscular Hemoglobin 30.6 pg (27-33); Mean Corpuscular Volume 96.9 fl (85-98); Mean Platelet Volume 9.6 fL (7.4-10.4); Monocytes # 0.8 10^3/uL (0.2-0.9); Monocytes % 10.3 %; Neutrophils # 5.78 10^3/uL (1.8-7.7); Neutrophils % 74.2 %; Nucleated Red Blood Cells % 0 %; Platelet Count 216 10^3/cmm (157-399); Red Blood Count 2.58 10^6/uL (3.85-5.65); Red Cell Distribution Width 13.7 % (12.1-15.1); White Blood Count 7.78 10^3/uL (3.29-11.43)
[2023-10-17 07:49] LABS: Alanine Aminotransferase 26 U/L (0-33); Albumin Level 2.6 g/dL (3.5-5.2); Alkaline Phosphatase 110 U/L (35-105); Aspartate Amino Transferase 61 U/L (0-32); Blood Urea Nitrogen 15 mg/dL (8-23); Calcium 7.3 mg/dL (8.5-10.5); Carbon Dioxide 23 mmol/L (22-29); Chloride 106 mmol/L (98-107); Creatinine Clr Calc Pharmacy 91.6707; Globulin 2.3 g/dL (1.3-4.6); Glomerular Filtration Rate 123.8 mL/min (90-130); Glucose 158 mg/dL (65-115); Osmolality Calculated 290 mOsm/kg (285-295); Sodium 138 mmol/L (136-145); Total Bilirubin 0.5 mg/dL (0.15-1.2); Total Protein 4.9 g/dL (6.6-8.7)
[2023-10-17 07:50] LABS: Anion Gap 13.2 (5-19); Potassium 4.2 mmol/L (3.5-5.1)
[2023-10-17] MEDS: docusate sodium 100 mg Capsule PO ×4 (08:28→17:58)
[2023-10-17] MEDS: iron polysaccharide complex 150 mg Capsule PO ×2 (08:29→17:58)
[2023-10-17] MEDS: calcium carb-vit d 600mg/400unit 1 Tablet 1 EACH PO ×2 (08:29→17:58)
[2023-10-17] MEDS: pantoprazole DR 40 mg Tablet PO (08:29)
[2023-10-17] MEDS: multivitamin therapeutic Tablet 1 TAB PO (08:29)
[2023-10-17] MEDS: ropinirole 0.25 mg Tablet 0.5 MG PO ×2 (08:29→18:01)
[2023-10-17] MEDS: duloxetine 30 mg Capsule 60 MG PO (08:30)
[2023-10-17] MEDS: propranolol 40 mg Tablet PO ×2 (08:31→17:58)
[2023-10-17] MEDS: chlorhexidine gluconate 0.12% Btl 473 mL 30 ML MUCOUS MEM ×4 (08:32→20:12)
[2023-10-17] MEDS: mupirocin oint 22 gm 1 APPLIC NASAL ×2 (08:33→17:57)
[2023-10-17] MEDS: oxyCODONE 5 mg IR Tab/Cap PO ×2 (12:44→22:05)
--- NOTE | 2023-10-17 13:34 | P.PN_ITS ---
Subjective 2 Subjective: requesting the baclofen be restarted otherwise feels ok hb 7.9 this am s/p 2 units rbc Vitals/I&O/Wt Last Vital Signs Temp 98.5 F 10/17/23 13:18 Pulse 80 10/17/23 13:18 Resp 17 10/17/23 13:18 BP 125/82 10/17/23 13:09 Pulse Ox 99 10/17/23 13:18 O2 Del Method Simple Mask 10/17/23 04:00 O2 Flow Rate 6 10/16/23 18:31 10/16/23 10/17/23 10/17/23 22:59 06:59 14:59 Intake Total 2583.333 / 3733.333 956.667 / 4690.000 170 / 170 Output Total 1600 / 1600 275 / 1875 Balance 983.333 / 2133.333 681.667 / 2815.000 170 / 170 Weight last 48 hrs Weight 114.668 kg Weight 108.136 kg Weight 95.254 kg Physical Exam 2 Narrative: General exam is white female, NAD HEENT: Atraumatic normocephalic. Pupils equally round. Oropharynx clear Cardiovascular regular in rhythm without murmur Lungs clear Abdomen is soft. Bowel sounds noted exam Portillo Extremities: immobilized. Skin no rash Neuro no obvious focal deficits Urinary Catheter Management: Portillo: Cath Placed During This Visit: yes Reason for Continuing Indwelling Catheter: Required Immobilization for Trauma or Surgery or Anesthesia Urinary Catheter Date of Insertion: 10/15/23 Urinary Catheter Time of Insertion: 22:30 Data 10/17/23 07:02 10/17/23 07:02 A&P Assessment and plan (1) Fracture of hip, left, closed: Patient presents with fracture, of her left hip. She just had this repaired in August. N.p.o. Orthopedic consultation Check urinalysis Bedrest Pain control with Tylenol, oxycodone. Dilaudid for breakthrough pain. No direct contraindications to surgery. Hold MARYJANE inhibitor, as this could be associated with hypotension around time of surgery. CBC, CMP with a.m. labs Qualifiers: Encounter type: initial encounter Qualified Code(s): S72.002A - Fracture of unspecified part of neck of left femur, initial encounter for closed fracture (2) Fall: She has had multiple falls. Question polypharmacy. Check urine drug screen, TSH Therapy evaluation after fracture care Qualifiers: Encounter type: initial encounter Qualified Code(s): W19.XXXA - Unspecified fall, initial encounter Plan Hypertension. Continue propranolol. Hold MARYJANE inhibitor. Other medical problems as outlined in past medical history Full code currently SCDs for DVT prophylaxis. Hold other anticoagulation until following surgery. F Today's plan / ? S/P surgery, POD1 - continue pain mangement ? She will need SNF placement at discharge. - afebrile overnight - restart baclofen ? UA negative. - s/p 2 unit rbc - order 1 unit more. - continue post op mgmt - activity orders as per ortho Attestations 2 Medical Necessity Statement*: Will need greater than 2 midnight stay for evaluation and treatment of hip fracture Diagnoses Fracture of hip, left, closed S72.002A Encounter type: initial encounter Fall W19.XXXA Encounter type: initial encounter
--- NOTE | 2023-10-17 15:23 | PC.OT ---
OT evaluation withheld this date per patient request. She c/o left hip pain of 8/10, (post op day 1) stabbing and cramping. Nursing notified. To attempt OT eval on a later date.
[2023-10-17] MEDS: baclofen 10 mg Tablet 20 MG PO ×2 (16:28→22:05)
[2023-10-17] MEDS: HYDROcodone-acetaminophen 10-325 mg Tablet 1 TAB PO (20:08)
[2023-10-17 21:49] LABS: Hematocrit 25.3 % (36-47); Mean Corpuscular HGB Conc 31.6 g/dL (30-55); Mean Corpuscular Hemoglobin 29.3 pg (27-33); Mean Corpuscular Volume 92.7 fl (85-98); Mean Platelet Volume 9.5 fL (7.4-10.4); Platelet Count 195 10^3/cmm (157-399); Red Blood Count 2.73 10^6/uL (3.85-5.65); Red Cell Distribution Width 16.8 % (12.1-15.1); White Blood Count 7.42 10^3/uL (3.29-11.43)
[2023-10-17 22:11] LABS: Absolute Neutrophil 6.2 10^3/cmm (1.4-6.5); Absolute Segmented Neutrophil 5.9 10/cmm (1.6-7.1); Band Neutrophils Absolute 0.3 10^3/cmm (0.0-1.2); Eosinophils 0 %; Lymphocytes 11 %; Lymphocytes Absolute 0.8 10^3/cmm (1.2-3.4); Monocytes Absolute 0.4 10^3/cmm (0.1-0.6); Platelet Estimate Normal (Normal); Segmented Neutrophils 80 %; Total Cells Counted 100 (0-100)
--- NOTE | 2023-10-17 23:00 | P.PN_ITS ---
Subjective 2 Subjective: Patient seen and examined this morning. Patient having some anxiety this morning. Hemoglobin 7.9 and going to receive 1 additional unit PRBC that was on hold from the OR. She apparently per hospitalist required multiple transfusions after her last surgery as well. Patient states pain does have some improvement from prior to surgery now that fracture is stable. Dressings clean dry and intact. Vitals/I&O/Wt Last Vital Signs Temp 98.3 F 10/17/23 19:51 Pulse 77 10/17/23 19:51 Resp 18 10/17/23 22:05 BP 113/72 10/17/23 22:09 Pulse Ox 96 10/17/23 22:05 O2 Del Method Oxymask 10/17/23 19:51 O2 Flow Rate 3 10/17/23 20:00 10/17/23 10/17/23 10/18/23 14:59 22:59 06:59 Intake Total 170 / 170 1650 / 1820 Output Total 500 / 500 Balance -330 / -330 1650 / 1320 Weight last 48 hrs Weight 252 lb 12.8 oz Weight 238 lb 6.4 oz Physical Exam 2 Narrative: Examination left lower extremity compartments are soft compressible normal postoperative swelling to the left thigh dressings are clean dry and intact there is no signs of saturation she is able to wiggle her toes as well as plantarflex and dorsiflex ankle distal pulses are palpable. Left lower extremity warm well-perfused. Urinary Catheter Management: Portillo: Cath Placed During This Visit: yes, but has since been removed by the nurse Reason for Continuing Indwelling Catheter: Decision to DC Catheter Urinary Catheter Date of Insertion: 10/15/23 Urinary Catheter Time of Insertion: 22:30 Date Urinary Catheter Removed: 10/17/23 Time Urinary Catheter Discontinued: 14:07 Data 10/18/23 06:15 10/18/23 06:15 Xray Ortho: Radiologist's impression: XR/XR femur LT min 2V* [id number] IMPRESSION: Interval left femur postsurgical hardware with improved fracture alignment. A&P Assessment and plan (1) Fracture of hip, left, closed: Qualifiers: Encounter type: initial encounter Qualified Code(s): S72.002A - Fracture of unspecified part of neck of left femur, initial encounter for closed fracture (2) Subtrochanteric fracture of left femur: Qualifiers: Encounter type: initial encounter Fracture type: closed Fracture alignment: displaced Qualified Code(s): S72.22XA - Displaced subtrochanteric fracture of left femur, initial encounter for closed fracture (3) Hardware failure: Plan Toe-touch weightbearing left lower extremity PT/OT Ice and elevation as needed for pain and swelling Change dressing as needed X-rays reviewed Daughter updated Receive 1 unit PRBC today?hemoglobin 7.9 today Hip and knee range of motion as patient can tolerate Internal medicine on board as primary Complete postoperative antibiotics and TXA Orthopedics will continue to follow Attestations 2 Medical Necessity Statement*: Ongoing care status post left femur hardware removal and interval reduction and gamma nail for subtrochanteric/femur shaft fracture Coding Level of Care Code [facility] Fracture of hip, left, closed S72.002A Encounter type: initial encounter Closed displaced subtrochanteric fracture of left femur, initial encounter S72.22XA Encounter type: initial encounter Fracture type: closed Fracture alignment: displaced Hardware failure Time Spent (min) 20
[2023-10-18] VITALS (10 sets, daily range): BP systolic 108–132; BP diastolic 54–83; PULSE 70–101; RESP 14–20; TEMP 36.4–37; O2SAT 93–98
[2023-10-18] MEDS: HYDROcodone-acetaminophen 10-325 mg Tablet 1 TAB PO ×3 (00:17→08:49)
[2023-10-18] MEDS: ketorolac 30 mg/mL INJ 15 MG IVP (00:17)
[2023-10-18] MEDS: TRAMadol 50 mg Tablet PO (03:04)
[2023-10-18] MEDS: LORazepam 1 mg Tablet PO (03:34)
[2023-10-18] MEDS: baclofen 10 mg Tablet 20 MG PO ×3 (04:40→18:23)
[2023-10-18] MEDS: enoxaparin 40 mg/0.4 mL Syringe SUBCUT (06:09)
[2023-10-18] MEDS: sodium chloride 0.9% 1,000 ML 100 ML IV ×2 (06:09→16:10)
[2023-10-18] MEDS: levothyroxine 50 mcg Tablet PO (06:10)
[2023-10-18 06:52] LABS: Basophils # 0.1 10^3/uL (0.0-0.1); Basophils % 0.8 %; Eosinophils # 0.1 10^3/uL (0.0-0.8); Hematocrit 25.1 % (36-47); Lymphocytes # 1.2 10^3/uL (0.8-4.8); Lymphocytes % 20.5 %; Mean Corpuscular HGB Conc 30.7 g/dL (30-55); Mean Corpuscular Hemoglobin 29.1 pg (27-33); Mean Corpuscular Volume 94.7 fl (85-98); Mean Platelet Volume 9.4 fL (7.4-10.4); Monocytes # 0.6 10^3/uL (0.2-0.9); Monocytes % 9.3 %; Neutrophils # 4.07 10^3/uL (1.8-7.7); Neutrophils % 68.1 %; Nucleated Red Blood Cells % 0 %; Platelet Count 183 10^3/cmm (157-399); Red Blood Count 2.65 10^6/uL (3.85-5.65); Red Cell Distribution Width 16.9 % (12.1-15.1); White Blood Count 5.99 10^3/uL (3.29-11.43)
[2023-10-18 07:09] LABS: Anion Gap 11.7 (5-19); Blood Urea Nitrogen 9 mg/dL (8-23); Calcium 7.9 mg/dL (8.5-10.5); Carbon Dioxide 26 mmol/L (22-29); Chloride 106 mmol/L (98-107); Creatinine Clr Calc Pharmacy 92.3636; Glomerular Filtration Rate 160.2 mL/min (90-130); Glucose 139 mg/dL (65-115); Osmolality Calculated 291 mOsm/kg (285-295); Potassium 3.7 mmol/L (3.5-5.1); Sodium 140 mmol/L (136-145)
[2023-10-18 07:17] LABS: Magnesium 1.8 mg/dL (1.7-2.3)
[2023-10-18] MEDS: propranolol 40 mg Tablet PO ×2 (08:41→17:17)
[2023-10-18] MEDS: oxybutynin 5 mg Tablet PO ×2 (08:42→17:17)
[2023-10-18] MEDS: ropinirole 0.25 mg Tablet 0.5 MG PO ×2 (08:42→17:17)
[2023-10-18] MEDS: iron polysaccharide complex 150 mg Capsule PO ×2 (08:42→17:17)
[2023-10-18] MEDS: duloxetine 30 mg Capsule 60 MG PO (08:42)
[2023-10-18] MEDS: multivitamin therapeutic Tablet 1 TAB PO (08:42)
[2023-10-18] MEDS: pantoprazole DR 40 mg Tablet PO (08:42)
--- NOTE | 2023-10-18 09:29 | PC.CHAP ---
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 beater out leveling machine visit [] Patient/Family/Request visit [] Outpatient visit [] Follow-up visit [] Physician referral [] Code/Alert [x] Routine visit [] Staff referral [] Actively dying [x] Patient sleeping [] Family support [] [] Out of room [] Palliative care [] [] Receiving care in room [] Pre-surgical visit [] Trauma [] Long length of stay [] ICU visit [] Other: Relational/Emotional Strength [] Patient feels connected with others/family/visitors/staff [] Distress [] Loneliness/isolation [] Abandonment Spirituality of Patient [] Person of Dayanna [] Attends Protestant of their Dayanna [] Believes in Prayer [] Reads Bible or Restoration materials [] There are Spiritual issues to be addressed Final Inspection Supervisor Interventions [x] Prayer [] Active listening [] Non-anxious presence [] Spiritual/emotional support [] Crisis/trauma care [] Spiritual counseling [] Bereavement support [] Provided bereavement packet [] Provided Bible/devotional materials [] Provided toy/stuffed animal, coloring book to patient or family member [] Provided Communion [] Anointing/Clare [] Salvation [] Completed spiritual assessment [] Other: Impact on Illness or Injury [] Angry [] Fearful [] Anxious [] Often cries [] Exhaustion [] Unable to work [] Unable to attend catholic [] Unable to walk/stand [] Unable to read [] Unable to drive [] Unable to eat/drink [] Unable to sleep [] Unable to be with family [] Patient intubated [] Other: Summary Time spent with patient
--- NOTE | 2023-10-18 09:45 | PC.SOCIAL ---
IMM Update pg 2 of IMM updated and reviewed w/ patient. Copy provided and copy dated, initialed an placed in chart.
[2023-10-18] MEDS: oxyCODONE 10 mg ER (12 HR) Tablet PO ×2 (10:57→18:06)
--- NOTE | 2023-10-18 11:32 | P.PN_ITS ---
Subjective 2 Subjective: seen this morning says pain is uncontrolled Vitals/I&O/Wt Last Vital Signs Temp 97.6 F 10/18/23 11:16 Pulse 71 10/18/23 11:16 Resp 14 10/18/23 11:16 BP 117/70 10/18/23 11:16 Pulse Ox 97 10/18/23 11:16 O2 Del Method Room Air 10/18/23 11:16 O2 Flow Rate 3 10/17/23 20:00 10/17/23 10/18/23 10/18/23 22:59 06:59 14:59 Intake Total 1650 / 1820 998.333 / 2818.333 240 / 240 Output Total 600 / 1100 Balance 1650 / 1320 398.333 / 1718.333 240 / 240 Weight last 48 hrs Weight 116.233 kg Weight 114.668 kg Physical Exam 2 Narrative: General exam is white female, NAD HEENT: Atraumatic normocephalic. Pupils equally round. Oropharynx clear Cardiovascular regular in rhythm without murmur Lungs clear Abdomen is soft. Bowel sounds noted exam Portillo Extremities: mild swelling at left hip area, covered with bandage. did not take dressing down. Skin no rash Neuro no obvious focal deficits Urinary Catheter Management: Portillo: Cath Placed During This Visit: yes, but has since been removed by the nurse Reason for Continuing Indwelling Catheter: Decision to DC Catheter Urinary Catheter Date of Insertion: 10/15/23 Urinary Catheter Time of Insertion: 22:30 Date Urinary Catheter Removed: 10/17/23 Time Urinary Catheter Discontinued: 14:07 Data 10/18/23 06:15 10/18/23 06:15 A&P Assessment and plan (1) Fracture of hip, left, closed: Patient presents with fracture, of her left hip. She just had this repaired in August. N.p.o. Orthopedic consultation Check urinalysis Bedrest Pain control with Tylenol, oxycodone. Dilaudid for breakthrough pain. No direct contraindications to surgery. Hold MARYJANE inhibitor, as this could be associated with hypotension around time of surgery. CBC, CMP with a.m. labs Qualifiers: Encounter type: initial encounter Qualified Code(s): S72.002A - Fracture of unspecified part of neck of left femur, initial encounter for closed fracture (2) Fall: She has had multiple falls. Question polypharmacy. Check urine drug screen, TSH Therapy evaluation after fracture care Qualifiers: Encounter type: initial encounter Qualified Code(s): W19.XXXA - Unspecified fall, initial encounter Plan Hypertension. Continue propranolol. Hold MARYJANE inhibitor. Other medical problems as outlined in past medical history Full code currently SCDs for DVT prophylaxis. Hold other anticoagulation until following surgery. F Today's plan 5/6 ? S/P surgery, POD2 - continue pain mangement ? She will need SNF placement at discharge. - afebrile overnight - restart baclofen ? UA negative. - s/p 3 unit rbc - continue post op mgmt - activity orders as per ortho - toe touch weight bearing. may benefit from inpatient rehab. - oxycontin ER 10 bid, percocet 5 1-2 tab q4h prn, add morphine 2 mg q2h IV prn for severe pain - hopefully above regimen will work for the patient. Attestations 2 Medical Necessity Statement*: Ongoing care status post left femur hardware removal and interval reduction and gamma nail for subtrochanteric/femur shaft fracture Diagnoses Fracture of hip, left, closed S72.002A Encounter type: initial encounter Fall W19.XXXA Encounter type: initial encounter
[2023-10-18] MEDS: vancomycin 1,500 MG/300 ML PIGGYBACK 200 MG IV (12:24)
[2023-10-18] MEDS: aztreonam 1,000 MG in sodium chloride 0.9% (plus) 50 ML 100 MG IV (14:09)
[2023-10-18] MEDS: oxyCODONE-APAP 5-325 mg Tablet PO ×2 (14:55→22:29)
--- NOTE | 2023-10-18 15:39 | P.PN_ITS ---
Subjective 2 Subjective: Patient seen and examined this afternoon. Had some issues with pain medication overnight and this morning these have been adjusted by the primary team she states she feels much more comfortable and pains controlled with the current medication regiment. Hemoglobin 7.7 today. Will defer to primary for transfusions. Dressing currently clean dry and intact she is work with therapy today. Planning for retirement facility given her being toe-touch weightbearing and requiring significant assistance and would benefit from rehab Vitals/I&O/Wt Last Vital Signs Temp 97.6 F 10/18/23 11:16 Pulse 71 10/18/23 11:16 Resp 17 10/18/23 14:55 BP 117/70 10/18/23 11:16 Pulse Ox 97 10/18/23 11:16 O2 Del Method Room Air 10/18/23 11:16 O2 Flow Rate 3 10/17/23 20:00 10/18/23 10/18/23 10/18/23 06:59 14:59 22:59 Intake Total 998.333 / 2818.333 830 / 830 Output Total 600 / 1100 Balance 398.333 / 1718.333 830 / 830 Weight last 48 hrs Weight 256 lb 4 oz Weight 252 lb 12.8 oz Physical Exam 2 Narrative: Examination left lower extremity compartments are soft compressible normal postoperative swelling to the left thigh dressings are clean dry and intact there is no signs of saturation she is able to wiggle her toes as well as plantarflex and dorsiflex ankle distal pulses are palpable. Left lower extremity warm well-perfused. Urinary Catheter Management: Portillo: Cath Placed During This Visit: yes, but has since been removed by the nurse Reason for Continuing Indwelling Catheter: Decision to DC Catheter Urinary Catheter Date of Insertion: 10/15/23 Urinary Catheter Time of Insertion: 22:30 Date Urinary Catheter Removed: 10/17/23 Time Urinary Catheter Discontinued: 14:07 Data 10/18/23 06:15 10/18/23 06:15 Micro: Microbiology 10/18/23 13:01 Blood Culture - Preliminary Blood SPECIMEN COLLECTED 10/18/23 12:56 Blood Culture - Preliminary Blood SPECIMEN COLLECTED A&P Assessment and plan (1) Fracture of hip, left, closed: Qualifiers: Encounter type: initial encounter Qualified Code(s): S72.002A - Fracture of unspecified part of neck of left femur, initial encounter for closed fracture (2) Subtrochanteric fracture of left femur: Qualifiers: Encounter type: initial encounter Fracture type: closed Fracture alignment: displaced Qualified Code(s): S72.22XA - Displaced subtrochanteric fracture of left femur, initial encounter for closed fracture (3) Hardware failure: Plan Toe-touch weightbearing left lower extremity PT/OT Ice and elevation as needed for pain and swelling Change dressing as needed X-rays reviewed Daughter updated Labs reviewed 7.7 hemoglobin defer to primary for further transfusions Hip and knee range of motion as patient can tolerate Internal medicine on board as primary Orthopedics will continue to follow, plan to take down dressing tomorrow with new dressing applied Attestations 2 Medical Necessity Statement*: Ongoing care status post left femur hardware removal and interval reduction and gamma nail for subtrochanteric/femur shaft fracture Coding Level of Care Code Acute Code for [facility] Fwd Diagnoses Fracture of hip, left, closed S72.002A Encounter type: initial encounter Closed displaced subtrochanteric fracture of left femur, initial encounter S72.22XA Encounter type: initial encounter Fracture type: closed Fracture alignment: displaced Hardware failure Time Spent (min) 20
[2023-10-19] VITALS (19 sets, daily range): BP systolic 93–130; BP diastolic 56–76; PULSE 67–84; RESP 16–20; TEMP 36.4–37.3; O2SAT 90–99
[2023-10-19] MEDS: sodium chloride 0.9% 1,000 ML 100 ML IV ×3 (01:00→22:12)
[2023-10-19] MEDS: vancomycin 1,500 MG/300 ML PIGGYBACK 200 MG IV ×3 (01:00→23:12)
[2023-10-19] MEDS: baclofen 10 mg Tablet 20 MG PO ×4 (01:01→23:11)
[2023-10-19] MEDS: aztreonam 1,000 MG in sodium chloride 0.9% (plus) 50 ML 100 MG IV ×2 (02:36→13:42)
[2023-10-19] MEDS: oxyCODONE-APAP 5-325 mg Tablet PO ×5 (02:42→23:11)
[2023-10-19] MEDS: enoxaparin 40 mg/0.4 mL Syringe SUBCUT (06:19)
[2023-10-19] MEDS: levothyroxine 50 mcg Tablet PO (06:19)
[2023-10-19] MEDS: oxyCODONE 10 mg ER (12 HR) Tablet PO ×2 (08:17→17:12)
[2023-10-19] MEDS: ketorolac 30 mg/mL INJ 15 MG IVP ×3 (08:18→22:21)
[2023-10-19] MEDS: iron polysaccharide complex 150 mg Capsule PO ×2 (08:19→17:12)
--- NOTE | 2023-10-19 09:16 | PC.CHAP ---
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 bottom precipitator operator visit [] Patient/Family/Request visit [] Outpatient visit [] Follow-up visit [] Physician referral [] Code/Alert [] Routine visit [] Staff referral [] Actively dying [x] Patient sleeping [] Family support [] [] Out of room [] Palliative care [] [] Receiving care in room [] Pre-surgical visit [] Trauma [] Long length of stay [] ICU visit [] Other: Relational/Emotional Strength [] Patient feels connected with others/family/visitors/staff [] Distress [] Loneliness/isolation [] Abandonment Spirituality of Patient [] Person of Dayanna [] Attends Anabaptism of their Dayanna [] Believes in Prayer [] Reads Bible or Yazidism materials [] There are Spiritual issues to be addressed Trial Consultant Interventions [] Prayer [] Active listening [] Non-anxious presence [] Spiritual/emotional support [] Crisis/trauma care [] Spiritual counseling [] Bereavement support [] Provided bereavement packet [] Provided Bible/devotional materials [] Provided toy/stuffed animal, coloring book to patient or family member [] Provided Communion [] Anointing/[place] [] Salvation [] Completed spiritual assessment [] Other: Impact on Illness or Injury [] Angry [] Fearful [] Anxious [] Often cries [] Exhaustion [] Unable to work [] Unable to attend spiritism [] Unable to walk/stand [] Unable to read [] Unable to drive [] Unable to eat/drink [] Unable to sleep [] Unable to be with family [] Patient intubated [] Other: Summary Time spent with patient
[2023-10-19] MEDS: pantoprazole DR 40 mg Tablet PO (09:34)
[2023-10-19] MEDS: duloxetine 30 mg Capsule 60 MG PO (09:34)
[2023-10-19] MEDS: propranolol 40 mg Tablet PO ×2 (09:34→17:39)
[2023-10-19] MEDS: ropinirole 0.25 mg Tablet 0.5 MG PO ×2 (09:34→17:12)
[2023-10-19] MEDS: multivitamin therapeutic Tablet 1 TAB PO (09:34)
[2023-10-19] MEDS: oxybutynin 5 mg Tablet PO ×2 (09:34→17:12)
[2023-10-19] MEDS: mupirocin oint 22 gm 1 APPLIC NASAL ×2 (09:35→17:13)
[2023-10-19] MEDS: ondansetron 2 mg/ML SDV 2 mL 4 MG IVP (09:38)
[2023-10-19 10:00] LABS: Basophils % 0.5 %; Eosinophils # 0.2 10^3/uL (0.0-0.8); Eosinophils % 2.7 %; Hematocrit 23.7 % (36-47); Lymphocytes # 1.3 10^3/uL (0.8-4.8); Lymphocytes % 22.7 %; Mean Corpuscular HGB Conc 30.8 g/dL (30-55); Mean Corpuscular Hemoglobin 29.8 pg (27-33); Mean Corpuscular Volume 96.7 fl (85-98); Mean Platelet Volume 9.9 fL (7.4-10.4); Monocytes # 0.6 10^3/uL (0.2-0.9); Monocytes % 10.5 %; Neutrophils # 3.56 10^3/uL (1.8-7.7); Neutrophils % 63.2 %; Nucleated Red Blood Cells % 0 %; Platelet Count 204 10^3/cmm (157-399); Red Blood Count 2.45 10^6/uL (3.85-5.65); Red Cell Distribution Width 16.4 % (12.1-15.1); White Blood Count 5.63 10^3/uL (3.29-11.43)
[2023-10-19 10:26] LABS: Magnesium 1.8 mg/dL (1.7-2.3)
[2023-10-19 10:29] LABS: Anion Gap 12.6 (5-19); Blood Urea Nitrogen 6 mg/dL (8-23); Calcium 7.9 mg/dL (8.5-10.5); Carbon Dioxide 25 mmol/L (22-29); Chloride 109 mmol/L (98-107); Creatinine Clr Calc Pharmacy 91.7863; Glomerular Filtration Rate 223.3 mL/min (90-130); Glucose 117 mg/dL (65-115); Osmolality Calculated 295 mOsm/kg (285-295); Potassium 3.6 mmol/L (3.5-5.1); Sodium 143 mmol/L (136-145)
--- NOTE | 2023-10-19 12:52 | P.PN_ITS ---
Subjective 2 Subjective: Patient seen and examined she is up eating lunch today dressing change is clean dry and intact. She is receiving a unit PRBC today. Overall is making slow progress with therapy pain controlled with pain regimen, planning for rehab facility at discharge Vitals/I&O/Wt Last Vital Signs Temp 97.6 F 10/19/23 10:59 Pulse 84 10/19/23 10:59 Resp 20 H 10/19/23 10:59 BP 121/74 10/19/23 10:59 Pulse Ox 94 10/19/23 10:59 O2 Del Method Room Air 10/19/23 10:59 O2 Flow Rate 3 10/17/23 20:00 10/18/23 10/19/23 10/19/23 22:59 06:59 14:59 Intake Total 1480 / 2310 1233.333 / 3543.333 1240 / 1240 Balance 1480 / 2310 1233.333 / 3543.333 1240 / 1240 Weight last 48 hrs Weight 253 lb 6 oz Weight 256 lb 4 oz Physical Exam 2 Narrative: Examination left lower extremity compartments are soft compressible normal postoperative swelling to the left thigh dressings are clean dry and intact there is no signs of saturation she is able to wiggle her toes as well as plantarflex and dorsiflex ankle distal pulses are palpable. Left lower extremity warm well-perfused. Dressing was taken down and josemanuel incision sites clean dry and intact incisions well-approximated. Urinary Catheter Management: Portillo: Cath Placed During This Visit: yes, but has since been removed by the nurse Reason for Continuing Indwelling Catheter: Decision to DC Catheter Urinary Catheter Date of Insertion: 10/15/23 Urinary Catheter Time of Insertion: 22:30 Date Urinary Catheter Removed: 10/17/23 Time Urinary Catheter Discontinued: 14:07 Data 10/20/23 05:39 10/20/23 05:39 Micro: Microbiology 10/18/23 13:01 Blood Culture - Preliminary Blood SPECIMEN COLLECTED 10/18/23 12:56 Blood Culture - Preliminary Blood SPECIMEN COLLECTED A&P Assessment and plan (1) Fracture of hip, left, closed: Qualifiers: Encounter type: initial encounter Qualified Code(s): S72.002A - Fracture of unspecified part of neck of left femur, initial encounter for closed fracture (2) Subtrochanteric fracture of left femur: Qualifiers: Encounter type: initial encounter Fracture type: closed Fracture alignment: displaced Qualified Code(s): S72.22XA - Displaced subtrochanteric fracture of left femur, initial encounter for closed fracture (3) Hardware failure: Plan Toe-touch weightbearing left lower extremity PT/OT Ice and elevation as needed for pain and swelling Change dressing as needed X-rays reviewed Daughter updated Labs reviewed 7.3 today receiving 1 unit PRBC per primary Hip and knee range of motion as patient can tolerate Internal medicine on board as primary Rehab facility discharge planning possible discharge tomorrow per primary Dressing changed today incision is clean dry and intact. At this point time patient stable from an orthopedic standpoint no further intervention recommended or required at this point in time would recommend follow-up in 2 weeks upon discharge. Patient received appropriate discharge structure as well as pain medication postoperatively follow-up in 2 weeks in orthopedic office. There is any question pertaining patient's care feel free to contact orthopedics at this time. Orthopedic surgery team will sign off and follow peripherally. Is partake in the care of this patient Attestations 2 Medical Necessity Statement*: Ongoing care status post left proximal femur hardware removal and open reduction internal fixation with cephalomedullary nail Coding Level of Care Code Acute Code for [facility] Fwd Diagnoses Fracture of hip, left, closed S72.002A Encounter type: initial encounter Closed displaced subtrochanteric fracture of left femur, initial encounter S72.22XA Encounter type: initial encounter Fracture type: closed Fracture alignment: displaced Hardware failure Time Spent (min) 20
--- NOTE | 2023-10-19 13:00 | P.PN_ITS ---
Subjective 2 Subjective: seen this morning pain better controlled hb 7.30 Vitals/I&O/Wt Last Vital Signs Temp 97.6 F 10/19/23 10:59 Pulse 84 10/19/23 10:59 Resp 20 H 10/19/23 10:59 BP 121/74 10/19/23 10:59 Pulse Ox 94 10/19/23 10:59 O2 Del Method Room Air 10/19/23 10:59 O2 Flow Rate 3 10/17/23 20:00 10/18/23 10/19/23 10/19/23 22:59 06:59 14:59 Intake Total 1480 / 2310 1233.333 / 3543.333 1240 / 1240 Balance 1480 / 2310 1233.333 / 3543.333 1240 / 1240 Weight last 48 hrs Weight 114.929 kg Weight 116.233 kg Physical Exam 2 Narrative: General exam is white female, NAD HEENT: Atraumatic normocephalic. Pupils equally round. Oropharynx clear Cardiovascular regular in rhythm without murmur Lungs clear Abdomen is soft. Bowel sounds noted exam Portillo Extremities: mild swelling at left hip area, covered with bandage. did not take dressing down. Skin no rash Neuro no obvious focal deficits Urinary Catheter Management: Portillo: Cath Placed During This Visit: yes, but has since been removed by the nurse Reason for Continuing Indwelling Catheter: Decision to DC Catheter Urinary Catheter Date of Insertion: 10/15/23 Urinary Catheter Time of Insertion: 22:30 Date Urinary Catheter Removed: 10/17/23 Time Urinary Catheter Discontinued: 14:07 Data 10/19/23 06:05 10/19/23 06:05 Micro: Microbiology 10/18/23 13:01 Blood Culture - Preliminary Blood SPECIMEN COLLECTED 10/18/23 12:56 Blood Culture - Preliminary Blood SPECIMEN COLLECTED A&P Assessment and plan (1) Fracture of hip, left, closed: Patient presents with fracture, of her left hip. She just had this repaired in August. N.p.o. Orthopedic consultation Check urinalysis Bedrest Pain control with Tylenol, oxycodone. Dilaudid for breakthrough pain. No direct contraindications to surgery. Hold MARYJANE inhibitor, as this could be associated with hypotension around time of surgery. CBC, CMP with a.m. labs Qualifiers: Encounter type: initial encounter Qualified Code(s): S72.002A - Fracture of unspecified part of neck of left femur, initial encounter for closed fracture (2) Fall: She has had multiple falls. Question polypharmacy. Check urine drug screen, TSH Therapy evaluation after fracture care Qualifiers: Encounter type: initial encounter Qualified Code(s): W19.XXXA - Unspecified fall, initial encounter Plan Hypertension. Continue propranolol. Hold MARYJANE inhibitor. Other medical problems as outlined in past medical history Full code currently SCDs for DVT prophylaxis. Hold other anticoagulation until following surgery. F Today's plan 10/18 ? S/P surgery, POD3 - continue pain mangement ? She will need SNF placement at discharge. - afebrile overnight - restart baclofen ? UA negative. - s/p 3 unit rbc - order 1 more rbc - continue post op mgmt - activity orders as per ortho - toe touch weight bearing. may benefit from inpatient rehab. - oxycontin ER 10 bid, percocet 5 1-2 tab q4h prn, add morphine 2 mg q2h IV prn for severe pain Attestations 2 Medical Necessity Statement*: Will need greater than 2 midnight stay for evaluation and treatment of hip fracture Diagnoses Fracture of hip, left, closed S72.002A Encounter type: initial encounter Fall W19.XXXA Encounter type: initial encounter
[2023-10-19] MEDS: chlorhexidine gluconate 0.12% Btl 473 mL 30 ML MUCOUS MEM ×2 (13:45→17:13)
[2023-10-19] MEDS: SUMAtriptan 25 mg Tablet 50 MG PO (17:38)
[2023-10-19 23:56] LABS: Vancomycin Trough 23.3 ug/mL (10-15)
[2023-10-20] VITALS (7 sets, daily range): BP systolic 100–147; BP diastolic 59–80; PULSE 73–75; RESP 16–20; TEMP 36.6–36.9; O2SAT 90–96
[2023-10-20] MEDS: aztreonam 1,000 MG in sodium chloride 0.9% (plus) 50 ML 100 MG IV (01:27)
[2023-10-20] MEDS: oxyCODONE-APAP 5-325 mg Tablet PO ×3 (03:13→12:21)
[2023-10-20] MEDS: ketorolac 30 mg/mL INJ 15 MG IVP (06:04)
[2023-10-20] MEDS: enoxaparin 40 mg/0.4 mL Syringe SUBCUT (06:04)
[2023-10-20] MEDS: levothyroxine 50 mcg Tablet PO (06:04)
[2023-10-20 06:09] LABS: Basophils % 0.6 %; Eosinophils # 0.2 10^3/uL (0.0-0.8); Eosinophils % 3.7 %; Hematocrit 25.8 % (36-47); Lymphocytes # 1.2 10^3/uL (0.8-4.8); Lymphocytes % 22.1 %; Mean Corpuscular HGB Conc 30.6 g/dL (30-55); Mean Corpuscular Hemoglobin 29.2 pg (27-33); Mean Corpuscular Volume 95.2 fl (85-98); Mean Platelet Volume 9.3 fL (7.4-10.4); Monocytes # 0.5 10^3/uL (0.2-0.9); Monocytes % 9.5 %; Neutrophils # 3.43 10^3/uL (1.8-7.7); Neutrophils % 63.5 %; Nucleated Red Blood Cells % 0 %; Platelet Count 203 10^3/cmm (157-399); Red Blood Count 2.71 10^6/uL (3.85-5.65); Red Cell Distribution Width 17.3 % (12.1-15.1); White Blood Count 5.39 10^3/uL (3.29-11.43)
[2023-10-20 06:30] LABS: Anion Gap 10.8 (5-19); Blood Urea Nitrogen 10 mg/dL (8-23); Calcium 8.1 mg/dL (8.5-10.5); Carbon Dioxide 26 mmol/L (22-29); Chloride 107 mmol/L (98-107); Creatinine Clr Calc Pharmacy 92.9559; Glomerular Filtration Rate 160.2 mL/min (90-130); Glucose 155 mg/dL (65-115); Magnesium 1.8 mg/dL (1.7-2.3); Osmolality Calculated 292 mOsm/kg (285-295); Potassium 3.8 mmol/L (3.5-5.1); Sodium 140 mmol/L (136-145)
[2023-10-20 06:58] LABS: SARS Covid-2 Antigen negative (Negative)
[2023-10-20] MEDS: ondansetron 2 mg/ML SDV 2 mL 4 MG IVP (08:26)
[2023-10-20] MEDS: sodium chloride 0.9% 1,000 ML 100 ML IV (08:30)
[2023-10-20] MEDS: ropinirole 0.25 mg Tablet 0.5 MG PO (08:39)
[2023-10-20] MEDS: propranolol 40 mg Tablet PO (08:39)
[2023-10-20] MEDS: duloxetine 30 mg Capsule 60 MG PO (08:39)
[2023-10-20] MEDS: baclofen 10 mg Tablet 20 MG PO (08:39)
[2023-10-20] MEDS: mupirocin oint 22 gm 1 APPLIC NASAL (08:40)
[2023-10-20] MEDS: iron polysaccharide complex 150 mg Capsule PO (08:40)
[2023-10-20] MEDS: multivitamin therapeutic Tablet 1 TAB PO (08:40)
[2023-10-20] MEDS: pantoprazole DR 40 mg Tablet PO (08:40)
[2023-10-20] MEDS: oxybutynin 5 mg Tablet PO (08:40)
[2023-10-20] MEDS: chlorhexidine gluconate 0.12% Btl 473 mL 30 ML MUCOUS MEM (08:41)
--- NOTE | 2023-10-20 09:04 | PC.CHAP ---
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 supervisor coil winding visit [] Patient/Family/Request visit [] Outpatient visit [] Follow-up visit [] Physician referral [] Code/Alert [x] Routine visit [] Staff referral [] Actively dying [] Patient sleeping [] Family support [] [] Out of room [] Palliative care [] [] Receiving care in room [] Pre-surgical visit [] Trauma [] Long length of stay [] ICU visit [] Other: Relational/Emotional Strength [x] Patient feels connected with others/family/visitors/staff [] Distress [] Loneliness/isolation [] Abandonment Spirituality of Patient [x] Person of Dayanna [] Attends Congregational of their Dayanna [x] Believes in Prayer [] Reads Bible or Mormonism materials [] There are Spiritual issues to be addressed Assistant Buyer Interventions [x] Prayer [x] Active listening [] Non-anxious presence [x] Spiritual/emotional support [] Crisis/trauma care [] Spiritual counseling [] Bereavement support [] Provided bereavement packet [] Provided Bible/devotional materials [] Provided toy/stuffed animal, coloring book to patient or family member [] Provided Communion [] Anointing/[place] [] Salvation [x] Completed spiritual assessment [] Other: Impact on Illness or Injury [] Angry [] Fearful [] Anxious [] Often cries [] Exhaustion [] Unable to work [] Unable to attend anabaptist [] Unable to walk/stand [] Unable to read [] Unable to drive [] Unable to eat/drink [] Unable to sleep [] Unable to be with family [] Patient intubated [] Other: Summary Time spent with patient 5 min
[2023-10-20] MEDS: oxyCODONE 10 mg ER (12 HR) Tablet PO (09:22)
--- NOTE | 2023-10-20 11:14 | P.DS_ITS ---
Discharge Providers Date of Admission: 10/15/23 23:30 Date of Discharge: October 20, 2023 Attending Provider at Admission: Saurabh George MD Attending Provider at Discharge: Anabel Gregory MD Primary Care Provider: Charity Salazar MD Diagnoses at Discharge Discharge Diagnosis (1) Fracture of hip, left, closed: Status: Acute Qualifiers: Encounter type: initial encounter Qualified Code(s): S72.002A - Fracture of unspecified part of neck of left femur, initial encounter for closed fracture (2) Subtrochanteric fracture of left femur: Status: Chronic Qualifiers: Encounter type: initial encounter Fracture alignment: displaced Fracture type: closed Qualified Code(s): S72.22XA - Displaced subtrochanteric fracture of left femur, initial encounter for closed fracture (3) Hardware failure: Status: Resolved Reason for Visit Reason for Visit: fall Hospital Course Hospital Course Patient presented to the hospital after a fall. Patient had a recent left hip trochanteric femur nail for a bisphosphonate subtrochanteric femur fracture that was done 08/24/2023. She was noted to the ER with a fall and had migration of the screw through the femoral head into the joint as well as new fractures around the subtrochanteric region as well as into the femur shaft. Patient was taken back to the OR and the following was done:Left femur removal of deep orthopedic hardware (gamma nail removal) Left subtrochanteric femur and femur shaft fracture open reduction internal fixation with cabling Left proximal femur open reduction internal fixation with long cephalomedullary nail (trochanteric femur nail) Patient also developed post op blood loss anemia for which she received 3 units packed RBCs. Hemoglobin stable at time of discharge. Patient sent to rehab in stable condition. It was difficult to control pain during hospital stay and patient required OxyContin twice daily with short acting Percocet and IV morphine for breakthrough pain.At discharge, oxycontin long acting was given x3 days with short acting oxycodone. Physical Exam Narrative: General exam is white female, NAD HEENT: Atraumatic normocephalic. Pupils equally round. Oropharynx clear Cardiovascular regular in rhythm without murmur Lungs clear Abdomen is soft. Bowel sounds noted exam Portillo Extremities: mild swelling at left hip area, covered with bandage. did not take dressing down. Skin no rash Neuro no obvious focal deficits Urinary Catheter Management: Portillo: Cath Placed During This Visit: yes, but has since been removed by the nurse Reason for Continuing Indwelling Catheter: Decision to DC Catheter Urinary Catheter Date of Insertion: 10/15/23 Urinary Catheter Time of Insertion: 22:30 Date Urinary Catheter Removed: 10/17/23 Time Urinary Catheter Discontinued: 14:07 Discharge Data Studies Completed and Pending Completed Studies During Hospitalization Category Date Time Status CT head wo con* [id number] Stat Cat Scan 10/15/23 20:24 Completed XR chest 1V portable [id number] Stat Exams 10/15/23 21:27 Completed XR femur LT min 2V* [id number] Routine Exams 10/16/23 19:01 Completed XR femur LT min 2V* [id number] Stat Exams 10/15/23 21:23 Completed XR forearm RT 2V [id number] Stat Exams 10/15/23 23:44 Completed XR hip LT 2-3V wo/w pel* [id number] Routine Exams 10/16/23 00:00 Completed XR hip LT 2-3V wo/w pel* [id number] Stat Exams 10/15/23 20:24 Completed XR knee LT 1-2V [id number] Stat Exams 10/15/23 21:33 Completed XR knee RT 1-2V [id number] Stat Exams 10/15/23 23:44 Completed Pending at discharge Category Date Time Status Blood Culture Stat Lab 10/18/23 13:01 Results Vancomycin Trough Timed Lab 10/20/23 10:50 Received Radiology Impressions Head CT 10/15/23 20:24 IMPRESSION: 1. Mild-moderate right occipital scalp hematoma. 2. No acute intracranial abnormality. Chest X-Ray 10/15/23 21:27 IMPRESSION: Mild bandlike atelectasis or scarring in the right midlung zone. Otherwise no significant interval change from 08/26/2023. Other findings detailed above. Forearm X-Ray 10/15/23 23:44 IMPRESSION: No acute osseous abnormality. Mild soft swelling of the medial elbow. Knee X-Ray 10/15/23 23:44 IMPRESSION: No acute fracture. Hip/Pelvis X-Ray 10/16/23 00:00 IMPRESSION: Intraoperative imaging during ORIF proximal LEFT femur fracture in good position and alignment. Femur X-Ray 10/16/23 19:01 IMPRESSION: Interval left femur postsurgical hardware with improved fracture alignment. Laboratory Results WBC 5.39 10^3/uL (3.29-11.43) 10/20/23 05:39 RBC 2.71 10^6/uL (3.85-5.65) L 10/20/23 05:39 Hgb 7.90 g/dL (11.27-16.99) L 10/20/23 05:39 Hct 25.8 % (36-47) L 10/20/23 05:39 MCV 95.2 fl (85-98) 10/20/23 05:39 MCH 29.2 pg (27-33) 10/20/23 05:39 MCHC 30.6 g/dL (30-55) 10/20/23 05:39 RDW 17.3 % (12.1-15.1) H 10/20/23 05:39 Plt Count 203 10^3/cmm (157-399) 10/20/23 05:39 MPV 9.3 fL (7.4-10.4) 10/20/23 05:39 Neut % (Auto) 63.5 % 10/20/23 05:39 Lymph % (Auto) 22.1 % 10/20/23 05:39 Fleming % (Auto) 9.5 % 10/20/23 05:39 Eos % (Auto) 3.7 % 10/20/23 05:39 Baso % (Auto) 0.6 % 10/20/23 05:39 Neut # (Auto) 3.43 10^3/uL (1.8-7.7) 10/20/23 05:39 Lymph # (Auto) 1.2 10^3/uL (0.8-4.8) 10/20/23 05:39 Fleming # (Auto) 0.5 10^3/uL (0.2-0.9) 10/20/23 05:39 Eos # (Auto) 0.2 10^3/uL (0.0-0.8) 10/20/23 05:39 Baso # (Auto) 0.0 10^3/uL (0.0-0.1) 10/20/23 05:39 Nucleated RBC % (auto) 0 % 10/20/23 05:39 Total Counted 100 (0-100) 10/17/23 21:33 Atypical Lymphs % 0.0 % (0-5) 10/17/23 21:33 Absolute Neutrophils 6.2 10^3/cmm (1.4-6.5) 10/17/23 21:33 Segmented Neutrophils 80 % 10/17/23 21:33 Abs Segm Neuts (Man) 5.9 10/cmm (1.6-7.1) 10/17/23 21:33 Band Neutrophils 4.0 % 10/17/23 21: Abs Band Neuts (Man) 0.3 10^3/cmm (0.0-1.2) 10/17/23 21:33 Absolute Lymphocytes 0.8 10^3/cmm (1.2-3.4) L 10/17/23 21:33 Lymphocytes (Manual) 11 % 10/17/23 21: Monocytes (Manual) 5.0 % 10/17/23 21: Absolute Monocytes 0.4 10^3/cmm (0.1-0.6) 10/17/23 21: Eosinophils (Manual) 0 % 10/17/23 21: Absolute Eosinophils 0.0 10^3/cmm (0.0-0.7) 10/17/23 21: Basophils (Manual) 0.0 % 10/17/23 21: Absolute Basophils 0.0 10^3/cmm (0.0-0.2) 10/17/23 21:33 Nucleated RBCs # 0.0 /100WBC 10/20/23 05:39 Platelet Estimate Normal (Normal) 10/17/23 21:33 PT 14.00 SECONDS (12.1-14.9) 10/15/23 22:19 INR 1.05 (0.8-1.2) 10/15/23 22:19 Sodium 140 mmol/L (136-145) 10/20/23 05:39 Potassium 3.8 mmol/L (3.5-5.1) 10/20/23 05:39 Chloride 107 mmol/L (98-107) 10/20/23 05:39 Carbon Dioxide 26 mmol/L (22-29) 10/20/23 05:39 Anion Gap 10.8 (5-19) 10/20/23 05:39 BUN 10 mg/dL (8-23) 10/20/23 05:39 Creatinine 0.4 mg/dL (0.5-0.9) L 10/20/23 05:39 GFR Calculation 160.2 mL/min (90-130) H 10/20/23 05:39 Glucose 155 mg/dL (65-115) H 10/20/23 05:39 Calculated Osmolality 292 mOsm/kg (285-295) 10/20/23 05:39 Calcium 8.1 mg/dL (8.5-10.5) L 10/20/23 05:39 Magnesium 1.8 mg/dL (1.7-2.3) 10/20/23 05:39 Total Bilirubin 0.5 mg/dL (0.15-1.2) 10/17/23 07:02 AST 61 U/L (0-32) H 10/17/23 07:02 ALT 26 U/L (0-33) 10/17/23 07:02 Alkaline Phosphatase 110 U/L (35-105) H 10/17/23 07:02 Total Protein 4.9 g/dL (6.6-8.7) L 10/17/23 07:02 Albumin 2.6 g/dL (3.5-5.2) L 10/17/23 07:02 Globulin 2.3 g/dL (1.3-4.6) 10/17/23 07:02 TSH 1.72 uIU/mL (0.27-4.20) 10/15/23 Unknown Urine Color Colorless (Yellow) 10/16/23 00:00 Urine Appearance Clear (CLEAR) 10/16/23 00:00 Urine pH 7 (5-7) 10/16/23 00:00 Ur Specific [place] 1.005 (1.005-1.030) 10/16/23 00:00 Urine Protein Neg (Negative) 10/16/23 00:00 Urine Glucose (UA) Norm (Normal) 10/16/23 00:00 Urine Ketones Negative (Negative) 10/16/23 00:00 Urine Blood Neg (Negative) 10/16/23 00:00 Urine Nitrate Negative (Negative) 10/16/23 00:00 Urine Bilirubin Neg (Negative) 10/16/23 00:00 Urine Urobilinogen Neg mg/dL (Negative) 10/16/23 00:00 Ur Leukocyte Esterase Negative (Negative) 10/16/23 00:00 Urine RBC 0-4 /hpf (0-2) H 10/16/23 00:00 Urine WBC 0-4 /hpf (0-5) H 10/16/23 00:00 Ur Squamous Epith Cells 0-4 /hpf (0-5) H 10/16/23 00:00 Amorphous Sediment Not Reportable 10/16/23 00:00 Urine Bacteria Trace /hpf (NONE) 10/16/23 00:00 Urine Mucus Trace /hpf 10/16/23 00:00 Vancomycin Trough 23.3 ug/mL (10-15) H 10/19/23 23:22 Urine Opiates Screen Positive ng/mL (Negative) H 10/16/23 00:00 Ur Barbiturates Screen Negative ng/mL (Negative) 10/16/23 00:00 Ur Phencyclidine Scrn Negative ng/mL (Negative) 10/16/23 00:00 Ur Amphetamines Screen Negative ng/mL (Negative) 10/16/23 00:00 U Benzodiazepines Scrn Positive ng/mL (Negative) H 10/16/23 00:00 Urine Cocaine Screen Negative ng/mL (Negative) 10/16/23 00:00 U Marijuana (THC) Screen Negative ng/mL (Negative) 10/16/23 00:00 SARS-CoV-2 Ag (Rapid) negative (Negative) 10/20/23 06:30 Blood Type O Positive 10/19/23 15:54 Rho(D) Type Rh positive 10/19/23 15:54 Antibody Screen Negative 10/19/23 15:54 Crossmatch See Detail 10/19/23 15:54 Vitals Last Vital Signs Temp 98.4 F 10/20/23 07:50 Pulse 75 10/20/23 07:50 Resp 18 10/20/23 08:26 BP 147/80 10/20/23 07:50 Pulse Ox 96 10/20/23 07:50 O2 Del Method Room Air 10/20/23 07:50 O2 Flow Rate 3 10/17/23 20:00 Discharge Plan Discharge Patient Disposition: Xfer SNF Condition: Stable Prescriptions: New Lovenox 30 mg/0.3 mL syringe 30 mg SUBCUT DAILY 35 Days Qty: 10.5 0RF Calcium 600 + D(3) 600 mg-10 mcg (400 unit) tablet 1 tab PO DAILY 30 Days Qty: 30 0RF Ferrex 150 150 mg iron Capsule 150 mg PO DAILY Qty: 30 0RF docusate sodium 100 mg Capsule 100 mg PO BID Qty: 14 0RF Continued oxybutynin chloride 5 mg tablet See Rx Instructions .ROUTE .COMPLEX Rx Instructions: 5 mg orally in morning; 10mg HS baclofen 20 mg tablet 20 mg PO QID PRN (Reason: spasms) 30 Days Qty: 120 1RF levothyroxine 50 mcg capsule 50 mcg PO DAILY duloxetine [Cymbalta] 30 mg capsule,delayed release(DR/EC) 60 mg PO DAILY omeprazole 40 mg capsule,delayed release(DR/EC) 40 mg PO DAILY propranolol 40 mg tablet 40 mg PO BID ropinirole 0.5 mg tablet 0.5 mg PO BID lisinopril 10 mg tablet 10 mg PO DAILY (DME) Bone Growth Stimulator E0748 See Rx Instructions .Route .MEDSUPPLY Qty: 1 0RF Rx Instructions: As directed sumatriptan succinate 100 mg tablet 100 mg PO DAILY PRN (Reason: Migraine Headache) oxybutynin chloride 10 mg tablet extended release 24hr 10 mg PO QPM temazepam [Restoril] 15 mg Capsule 15 mg PO BEDTIME Discontinued celecoxib 200 mg capsule 200 mg PO DAILY No Action oxycodone 5 mg tablet 5 - 10 mg PO .q 4-6 PRN (Reason: pain postop) Qty: 20 0RF Discharge Orders: Discharge Order (Routine); Ordered 10/20/23 Ordered By: Anabel Gregory Other Ambulatory Orders: Complete Blood Count w/Auto (Routine) Timeframe: 3 Days Location: Determined by Patient Ordered By: Anabel Gregory Complete Blood Count w/Auto (Routine) Timeframe: 1 Week Location: Determined by Patient Ordered By: Anabel Gregory Referrals: [facility] [Outside] Charity Salazar MD [Primary Care Provider] - Valdemar Nelson DO [Physician] - 11/01/23 3:15 pm Discharge Diet: Advance as tolerated Discharge Activity: Limit activity as instructed, Use walker/crutches as instructed and As per PT/OT instructions Patient Instructions: Opioid Safety, Post Anesthesia Care Activity Restrictions/Additional Instructions: Orthopedic discharge instructions: Patient should leave Silverlon dressing on in place for 7 days postoperatively. After that it may be changed and okay to clean incision with warm soapy water pat dry and new dry dressing applied No baths or soaks Keep incision clean dry and intact If dressing does become saturated prior okay to change clean incision and placed a new dry dressing Encourage knee and hip range of motion as patient can tolerate Toe-touch weightbearing to left lower extremity Utilize crutches/walker per PT instructions to maintain restrictions Ice as needed for pain and swelling Recommend compression socks/BRUNILDA hose for swelling to the lower extremities Take pain medication as prescribed Take antinausea medication as needed Take blood thinner (Lovenox) as prescribed for blood clot prevention Follow-up with Dr. Nelson in the office in 2 weeks Contact the office for any questions or concerns Discharge Attestations Time Spent in Discharge Care*: greater than 30 min Quality Metrics Clinical Quality Measures [ No reported AMI, CVA or VTE this stay] Coding Level of Care Code 62236 Total time (in minutes) for Discharge: 35 Diagnoses Fracture of hip, left, closed S72.002A Encounter type: initial encounter Closed displaced subtrochanteric fracture of left femur, initial encounter S72.22XA Encounter type: initial encounter Fracture alignment: displaced Fracture type: closed Hardware failure
[2023-10-20 11:25] LABS: Vancomycin Trough 14.2 ug/mL (10-15)
--- NOTE | 2023-10-20 12:31 | PC.SOCIAL ---
IMM Update pg 2 of IMM updated and reviewed w/ patient. Copy provided and copy dated, initialed and placed in chart.
== END 2023-10-20 13:30 | disposition skilled nursing facility (03) | DRG 480 ==
LOC: ER 23:46 → MEDSURG 23:53
PROVIDERS: Student in an Organized Health Care Education/Training Program; Admitting Provider Internal Medicine; Emergency Provider Emergency Medicine; PCP Internal Medicine; Visit Provider Internal Medicine
PROC: 0QS706Z Reposition Left Upper Femur with Intramedullary Internal Fixation Device, Open Approach (ICD-10-PCS; CPT 20680; principal; 2023-10-16 11:20)
PROC: 0QS706Z Reposition Left Upper Femur with Intramedullary Internal Fixation Device, Open Approach (ICD-10-PCS; 2023-10-16 11:20)
PROC: 0QS706Z Reposition Left Upper Femur with Intramedullary Internal Fixation Device, Open Approach (ICD-10-PCS; CPT 27245; 2023-10-16 11:20)
DX: T84.125A Displacement of internal fixation device of left femur, initial encounter (principal); S72.22XA Displaced subtrochanteric fracture of left femur, initial encounter for closed fracture; W01.0XXA Fall on same level from slipping, tripping and stumbling without subsequent striking against object, initial encounter; Y79.8 Miscellaneous orthopedic devices associated with adverse incidents, not elsewhere classified; I10 Essential (primary) hypertension; F41.9 Anxiety disorder, unspecified; F32.A Depression, unspecified; E03.9 Hypothyroidism, unspecified; G89.29 Other chronic pain; M54.50 Low back pain, unspecified; Z79.01 Long term (current) use of anticoagulants; Z11.52 Encounter for screening for COVID-19
CPT/HCPCS: 36415; 36430; 51702; 70450; 71045; 72148; 73090; 73502; 73552; 73560; 76000; 80048; 80053; 80202; 80306; 81001; 83735; 84443; 85007; 85025; 85027; 85610; 86850; 86900; 86920; 87040; 87426; 93005; 96372; 96374; 96375; 96376; 97110; 97162; 97167; 97530; 97535; 99285; C1713; J0131; J1100; J1170; J1650; J1885; J2250; J2270; J2405; J2704; J2710; J3010; J3370; J3490; J7030; J7120; P9016

== ENCOUNTER 2023-10-22 18:52 | Emergency (ER) | payer MEDICARE, SELFPAY ==
[2023-10-22 18:57] VITALS: BP 114/68; PULSE 79; RESP 22; TEMP 37; O2SAT 96; BMI 33.4
--- NOTE | 2023-10-22 19:18 | W.ED.EXTPRO ---
HPI - Extremity Problem General: Chief complaint: General Medical Stated complaint: leg pain Time Seen by Provider: 10/22/23 18:56 Source: patient Mode of arrival: EMS Limitations: no limitations History of Present Illness: Patient is a 63-year-old female presents to ED today via EMS for evaluation of uncontrolled pain [facility]. Patient states she is status post left hip surgery by Dr. Nelson. Date of service was 10/17. Surgery performed was as follows: Left femur removal of deep orthopedic hardware (gamma nail removal) Left subtrochanteric femur and femur shaft fracture open reduction internal fixation with cabling Left proximal femur open reduction internal fixation with long cephalomedullary nail (trochanteric femur nail) Patient states they had a difficult time controlling her pain at the hospital but they finally found a pain regimen that worked including oxycontin ER 10 bid, percocet 5 1-2 tab q4h prn, add morphine 2 mg q2h IV prn for severe pain. Patient states after she was discharged from the hospital they significantly reduce these pain medications and they are not controlling her pain at home. Patient has some questions on her physical therapy instructions as she feels the penitentiary facility is making her do too much. MD Complaint: joint pain Onset (ago): day(s) Pain Consistency: constant Location: left and lower extremity Radiation: none Relieving factors: nothing Exacerbating factors: range of motion and weight bearing Associated symptoms: Reports no associated symptoms; Deny chest pain or fever(s) Context: recent surgery/procedure Review of Systems Const: Denies: fever(s) Card: Denies: chest pain Resp: Denies: dyspnea Musc: Reports: joint pain (L hip); Denies: neck pain, back pain, extremity pain, extremity swelling or joint swelling Neuro: Denies: numbness in extremities, weakness in extremities or sensory changes PFSH ED PFSH: Medical History At risk for polypharmacy Altered mental status Chronic hypertension Diagnosed at the age of 14 and controlled on medication managed by primary care provider. Anxiety and depression Currently on Cymbalta managed by her primary care provider. Hypothyroid Currently on levothyroxine managed by PMD No pertinent past medical history Denies: hypertension, diabetes, heart, lung, liver, kidney, thyroid, genital herpes, bleeding problems, or clotting problems. her primary care provider is Dr. Salazar Chronic low back pain without sciatica Currently on hydrocodone and baclofen managed by the pain clinic Surgical History History of back surgery 10/2020---jef placed in back S/P breast biopsy 2000-left breast-benign History of dental surgery tooth extraction Hx of section 03/26/89 History of ankle surgery 2006--LEFT x3. In [place] Family History Mother Family history of thyroid problem Thyroid disease Diabetes Hypertension Father Brain aneurysm Denies family history of Colon cancer Ovarian cancer DVT (deep venous thrombosis) Heart disease Breast cancer Suicide Pulmonary embolism Uterine cancer Social History Smoking and tobacco/nicotine status: never used tobacco/nicotine Alcohol intake: current Alcohol intake frequency: 0-2 Drinks per Day Substance/Drug Use: never Physical Exam Const: COMMON NORMALS: average body habitus, patient oriented x3, no limitations, alert and well nourished GENERAL APPEARANCE: cooperative and in distress (tearful in discomfort) ORIENTATION/CONSCIOUSNESS: Yes awake, Yes oriented to person, Yes oriented to place and Yes oriented to time Extremity: COMMON NORMALS: capillary refill normal GENERAL: Yes normal exam except as noted LEFT LOWER EXTREMITY: Yes hip joint (surgical incision and dressing appear clean/intact) Left hip: Yes ROM (ROM not tested due to patient discomfort) and Yes neurovascular exam (normal) Neuro: COMMON NORMALS: patient oriented x3, moves all extremities, no focal motor deficits and no sensory deficits noted SENSORIUM/ORIENTATION: Yes alert, Yes oriented to person, Yes oriented to place and Yes oriented to time GAIT: Yes Unable to assess gait Course Vital Signs: Vital signs: Vital Signs Temperature 98.6 F 10/22/23 18:57 Pulse Rate 79 10/22/23 18:57 Respiratory Rate 20 H 10/22/23 20:20 Blood Pressure 114/68 10/22/23 18:57 Pulse Oximetry 96 10/22/23 18:57 Oxygen Delivery Me thod Room Air 10/22/23 18:57 MDM - Extremity (Nontraumatic) Medical Decision Making Patient 63-year-old female here from her penitent[facility] facility due to uncontrolled pain related to her recent hip surgery. Extremity neurovascularly is intact. Her surgical incision appears well. Her vital signs are stable. Patient states she currently scheduled to take one 5 mg oxycodone every 6 hours which she states is not controlling her discomfort. I will give skilled nursing instructions that they can give 1-2 tabs every 4-6 hours as needed. Will provide her an additional prescription if she needs additional medication. Recommend follow-up with her surgeon as scheduled. Return to ED precautions given. I did discuss with her the recommendations from her surgeon and physical therapist after documentation review. She is to move her hip and knee as tolerated. She is to be toe-touch weightbearing on her left lower extremity with the use of a walker to help with this. Medical Records I reviewed the patient's medical records. No radiology studies performed this visit Discharge Plan Discharge Patient Disposition: Home Clinical Impression: Encounter for pain management Condition: Stable Prescriptions: Changed oxycodone 5 mg tablet 5 - 10 mg PO .q 4-6 PRN (Reason: pain postop) Qty: 20 0RF No Action oxybutynin chloride 5 mg tablet See Rx Instructions .ROUTE .COMPLEX Rx Instructions: 5 mg orally in morning; 10mg HS baclofen 20 mg tablet 20 mg PO QID PRN (Reason: spasms) 30 Days Qty: 120 1RF levothyroxine 50 mcg capsule 50 mcg PO DAILY duloxetine [Cymbalta] 30 mg capsule,delayed release(DR/EC) 60 mg PO DAILY omeprazole 40 mg capsule,delayed release(DR/EC) 40 mg PO DAILY propranolol 40 mg tablet 40 mg PO BID ropinirole 0.5 mg tablet 0.5 mg PO BID lisinopril 10 mg tablet 10 mg PO DAILY (DME) Bone Growth Stimulator E0748 See Rx Instructions .Route .MEDSUPPLY Qty: 1 0RF Rx Instructions: As directed sumatriptan succinate 100 mg tablet 100 mg PO DAILY PRN (Reason: Migraine Headache) oxybutynin chloride 10 mg tablet extended release 24hr 10 mg PO QPM temazepam [Restoril] 15 mg Capsule 15 mg PO BEDTIME ondansetron 4 mg tablet,disintegrating 4 mg PO Q8H 3 Days Qty: 9 0RF Lovenox 30 mg/0.3 mL syringe 30 mg SUBCUT DAILY 35 Days Qty: 10.5 0RF Calcium 600 + D(3) 600 mg-10 mcg (400 unit) tablet 1 tab PO DAILY 30 Days Qty: 30 0RF Ferrex 150 150 mg iron Capsule 150 mg PO DAILY Qty: 30 0RF docusate sodium 100 mg Capsule 100 mg PO BID Qty: 14 0RF OxyContin 10 mg Tablet,Oral Only,Ext.Rel.12 Hr 10 mg PO BID 3 Days Qty: 6 0RF Discharge Orders: Discharge ED (Routine); Ordered 10/22/23 Ordered By: Britney Ocampo Referrals: Charity Salazar MD [Primary Care Provider] - Patient Instructions: Opioid Safety, Pain Management Activity Restrictions/Additional Instructions: As we discussed per your discharge instructions they are to encourage knee and hip range of motion as you are able to tolerate. Instructions are for toe-touch weightbearing to your left lower extremity and to utilize walker per physical therapy instructions to maintain these restrictions. As we discussed you can increase your oxycodone to 1-2 tabs as needed every 4-6 hours for pain. Goal will be to wean from opiate use as soon as possible. I have provided you an additional prescription if extra pain medications are needed. Please follow-up with your surgeon as scheduled. Coding Level of Care Code ED Nuclear Design Engineer for Jade Gracia
[2023-10-22 19:24] VITALS: RESP 20
[2023-10-22] MEDS: HYDROmorphone 1 mg/mL INJ 1 mL IM (19:24)
[2023-10-22 20:20] VITALS: RESP 20
[2023-10-22] MEDS: fentaNYL 50 mcg/mL INJ 2mL IVP (20:20)
[2023-10-22 21:52] VITALS: BP 135/78; PULSE 80; O2SAT 96
== END 2023-10-22 21:51 | disposition home or self-care (01) ==
PROVIDERS: Emergency Provider Physician Assistant; PCP Internal Medicine
DX: G89.18 Other acute postprocedural pain (principal); I10 Essential (primary) hypertension
CPT/HCPCS: 96372; 96374; 99284; J1170; J3010

== ENCOUNTER → 2023-11-02 15:08 | Outpatient (BNVA) | payer MEDICARE, SELFPAY | PROVIDERS: PCP Internal Medicine; Visit Provider Physician Assistant | DX: S72.002D Fracture of unspecified part of neck of left femur, subsequent encounter for closed fracture with routine healing (principal); S72.22XD Displaced subtrochanteric fracture of left femur, subsequent encounter for closed fracture with routine healing; X58.XXXD Exposure to other specified factors, subsequent encounter | CPT/HCPCS: 73502; 99024 ==

== ENCOUNTER 2023-11-12 12:37 | Emergency (ER) | payer MEDICARE, SELFPAY ==
--- NOTE | 2023-11-12 12:40 | USCV_ITS ---
Niki Agosto Age: 63 Gender: F : 1960 Exam Date: 11/12/2023 12:55 Ordering Phys: Champ Palma DO Technologist: TAMMI [place] [facility] [place] LE PAIN AND SWELLING POST HIP SURG HISTORY: Lower extremity swelling. Lower extremity pain. PROCEDURES: Venous duplex imaging was performed in only the left lower extremity. The following venous structures were evaluated: common femoral vein, profunda vein, proximal portion of the greater saphenous vein, superficial femoral vein, and the popliteal vein. In addition, the posterior tibial and peroneal trunk were evaluated. Serial compression, augmentation maneuvers, and spectral Doppler flow evaluation were performed. FINDINGS: No evidence of DVT seen in any vessel visualized at this time. CONCLUSIONS No evidence of left lower extremity DVT. Yovany Khalil MD (Electronically Signed) Final Date: 12 Nov 2023 13:21 S
[2023-11-12 12:41] VITALS: BP 99/69; PULSE 77; RESP 18; TEMP 37.1; O2SAT 94; BMI 28.8
--- NOTE | 2023-11-12 12:49 | XR_ITS ---
WS: [id number] Exam: XR hip LT 2-3V wo/w pel* [id number] Date/Time of Exam: 11/12/2023 1:25 PM Reason For Exam: hip pain - s/p arthroplasty Comparison 11/02/2023. There is a healing intertrochanteric fracture as well as a second fracture of the upper diaphysis of the femur stabilized with internal fixation. No new fracture identified. No loss of reduction. No sig n of hardware failure. No significant soft tissue abnormality demonstrated. XR/XR hip LT 2-3V wo/w pel* [id number] IMPRESSION: 1. Stable internal fixation involving fractures of the LEFT femur as noted abov e. No hardware complication or significant change.
--- NOTE | 2023-11-12 12:49 | ED_ITS ---
HPI - Extremity Problem 2 General: Chief complaint: Extremity Problem,Nontraumatic Stated complaint: left leg pain Time Seen by Provider: 11/12/23 12:39 Source: patient Mode of arrival: EMS History of Present Illness: 63-year-old female presents via EMS from the halfway complaining of left hip pain radiating down into her legs she has had some mild swelling as well. Patient is in the halfway recovering from a left hip arthroplasty and a femur fracture with a jef. No traumas or falls since the previous surgery. No chest pain no shortness of breath. Pain has been progressively worsening. MD Complaint: extremity pain Onset (ago): day(s) Location: left (Hip and lower leg) Relieving factors: nothing Exacerbating factors: nothing Associated symptoms: Deny arthralgias, chest pain, fever(s), myalgias, rash or short of breath Review of Systems 2 Const: Denies: fever(s) or chills Card: Denies: chest pain Resp: Denies: dyspnea GI: Denies: abdominal pain : Denies: dysuria, urinary frequency or urinary urgency Musc: Denies: neck pain or back pain Skin/Breast: Denies: rash PFSH ED 2 PFSH: Medical History At risk for polypharmacy Altered mental status Chronic hypertension Diagnosed at the age of 14 and controlled on medication managed by primary care provider. Anxiety and depression Currently on Cymbalta managed by her primary care provider. Hypothyroid Currently on levothyroxine managed by PMD No pertinent past medical history Denies: hypertension, diabetes, heart, lung, liver, kidney, thyroid, genital herpes, bleeding problems, or clotting problems. her primary care provider is Dr. Salazar Chronic low back pain without sciatica Currently on hydrocodone and baclofen managed by the pain clinic Surgical History History of back surgery 10/2020---jef placed in back S/P breast biopsy 2000-left breast-benign History of dental surgery tooth extraction Hx of section 03/26/89 History of ankle surgery 2006--LEFT x3. In [place] Family History Mother Family history of thyroid problem Thyroid disease Diabetes Hypertension Father Brain aneurysm Denies family history of Colon cancer Ovarian cancer DVT (deep venous thrombosis) Heart disease Breast cancer Suicide Pulmonary embolism Uterine cancer Social History Smoking and tobacco/nicotine status: never used tobacco/nicotine Alcohol intake: current Alcohol intake frequency: 0-2 Drinks per Day Substance/Drug Use: never Physical Exam 2 Const: GENERAL APPEARANCE: cooperative and comfortable O RIENTATION/CONSCIOUSNESS: Yes awake, Yes oriented to person, Yes oriented to place and Yes oriented to time HENMT: COMMON NORMALS: normocephalic, atraumatic and hearing grossly normal bilaterally HEAD & SCALP: normocephalic and atraumatic Resp: COMMON NORMALS: normal respiratory effort, No retractions, No use of accessory muscles and clear to auscultation bilaterally AUSCULTATION: clear to auscultation bilaterally Cardio: COMMON NORMALS: regular rate, regular rhythm and No murmurs present (Cardio) RATE: regular rate RHYTHM: regular rhythm GI: COMMON NORMALS: Soft to palpation and No hepatosplenomegaly present A USCULTATION: Yes normoactive bowel sounds PALPATION: Yes Soft to palpation, No Tenderness to palpation present (GI), No Guarding due to palpation present (GI) and Yes No hepatosplenomegaly present Extremity: OTHER: Moderate generalized swelling of the left lower extremity slightly some venous stasis slight edema. Nonpitting. No calf tenderness. Examination of the incision from the hip arthroplasty is well-healed and approximated with no dehiscence no induration no redness or drainage Neuro: SENSORIUM/ORIENTATION: Yes oriented to person, Yes oriented to place and Yes oriented to time Skin: COMMON NORMALS: no rashes or lesions noted GENERAL SKIN EXAM: no rashes or lesions noted Course 2 Vital Signs: Vital signs: Vital Signs Temperature 98.7 F 11/12/23 12:41 Pulse Rate 78 11/12/23 14:15 Respiratory Rate 16 11/12/23 14:53 Blood Pressure 125/88 11/12/23 14:15 Pulse Oximetry 98 11/12/23 14:53 Oxygen Delivery Me thod Room Air 11/12/23 14:15 MDM - Extremity (Nontraumatic) Medical Decision Making Venous duplex negative. X-ray shows hardware in good position. Discharged back home continue medications and rehab. No signs of infection at this time suspect a lot of her pain which is radiating from the surgical site distally is probably related to the surgery itself. No leukocytosis today. Medical Records I reviewed the patient's medical records. Lab Data I reviewed the patient's lab results. 11/12/23 13:09 11/12/23 13:09 Radiology Impressions Hip/Pelvis X-Ray 11/12/23 12:49 IMPRESSION: 1. Stable internal fixation involving fractures of the LEFT femur as noted above. No hardware complication or significant change. Laboratory Results WBC 4.71 10^3/uL (3.29-11.43) 11/12/23 13:09 RBC 3.95 10^6/uL (3.85-5.65) 11/12/23 13:09 Hgb 11.00 g/dL (11.27-16.99) L 11/12/23 13:09 Hct 36.4 % (36-47) 11/12/23 13:09 MCV 92.2 fl (85-98) 11/12/23 13:09 MCH 27.8 pg (27-33) 11/12/23 13:09 MCHC 30.2 g/dL (30-55) 11/12/23 13:09 RDW 14.5 % (12.1-15.1) 11/12/23 13:09 Plt Count 269 10^3/cmm (157-399) 11/12/23 13:09 MPV 9.8 fL (7.4-10.4) 11/12/23 13:09 Neut % (Auto) 57.6 % 11/12/23 13:09 Lymph % (Auto) 31.4 % 11/12/23 13:09 [place] % (Auto) 7.4 % 11/12/23 13:09 Eos % (Auto) 2.3 % 11/12/23 13:09 Baso % (Auto) 1.1 % 11/12/23 13:09 Neut # (Auto) 2.71 10^3/uL (1.8-7.7) 11/12/23 13:09 Lymph # (Auto) 1.5 10^3/uL (0.8-4.8) 11/12/23 13:09 [place] # (Auto) 0.4 10^3/uL (0.2-0.9) 11/12/23 13:09 Eos # (Auto) 0.1 10^3/uL (0.0-0.8) 11/12/23 13:09 Baso # (Auto) 0.1 10^3/uL (0.0-0.1) 11/12/23 13:09 Nucleated RBC % (auto) 0 % 11/12/23 13:09 Nucleated RBCs # 0.0 /100WBC 11/12/23 13:09 Sodium 137 mmol/L (136-145) 11/12/23 13:09 Potassium 4.4 mmol/L (3.5-5.1) 11/12/23 13:09 Chloride 100 mmol/L (98-107) 11/12/23 13:09 Carbon Dioxide 29 mmol/L (22-29) 11/12/23 13:09 Anion Gap 12.4 (5-19) 11/12/23 13:09 BUN 15 mg/dL (8-23) 11/12/23 13:09 Creatinine 0.5 mg/dL (0.5-0.9) 11/12/23 13:09 GFR Calculation 123.8 mL/min (90-130) 11/12/23 13:09 Glucose 117 mg/dL (65-115) H 11/12/23 13:09 Calculated Osmolality 286 mOsm/kg (285-295) 11/12/23 13:09 Calcium 9.0 mg/dL (8.5-10.5) 11/12/23 13:09 Total Bilirubin 0.2 mg/dL (0.15-1.2) 11/12/23 13:09 AST 14 U/L (0-32) 11/12/23 13:09 ALT 9 U/L (0-33) 11/12/23 13:09 Alkaline Phosphatase 220 U/L (35-105) H 11/12/23 13:09 Total Protein 6.9 g/dL (6.6-8.7) 11/12/23 13:09 Albumin 3.6 g/dL (3.5-5.2) 11/12/23 13:09 Globulin 3.3 g/dL (1.3-4.6) 11/12/23 13:09 All radiology interpretation(s) finalized by discharge Discharge Plan Discharge Patient Disposition: Home Clinical Impression: Left leg pain, S/P total left hip arthroplasty Condition: Stable Prescriptions: No Action oxybutynin chloride 5 mg tablet See Rx Instructions .ROUTE .COMPLEX Rx Instructions: Take 5 mg orally in morning and 10mg at bedtime. baclofen 20 mg tablet 20 mg PO QID PRN (Reason: spasms) 30 Days Qty: 120 1RF levothyroxine 50 mcg capsule 50 mcg PO QAM duloxetine [Cymbalta] 30 mg capsule,delayed release(DR/EC) 60 mg PO DAILY omeprazole 40 mg capsule,delayed release(DR/EC) 40 mg PO DAILY propranolol 40 mg tablet 40 mg PO BID ropinirole 0.5 mg tablet 0.5 mg PO BID lisinopril 10 mg tablet 10 mg PO DAILY (DME) Bone Growth Stimulator E0748 See Rx Instructions .Route .MEDSUPPLY Qty: 1 0RF Rx Instructions: As directed sumatriptan succinate 100 mg tablet 100 mg PO DAILY PRN (Reason: Migraine Headache) [place] 10-325 mg Tablet 1 tab PO Q6H PRN (Reason: Pain) Benadryl 25 mg Capsule 25 mg PO Q6H PRN (Reason: UNKNOWN) oxycodone 15 mg Tablet,Oral Only,Ext.Rel.12 Hr 15 mg PO BID temazepam [Restoril] 15 mg Capsule 15 mg PO BEDTIME enoxaparin [Lovenox] 30 mg/0.3 mL syringe 30 mg SUBCUT DAILY 35 Days Qty: 10.5 0RF calcium carbonate-vitamin D3 [Calcium 600 + D(3)] 600 mg-10 mcg (400 unit) tablet 1 tab PO DAILY 30 Days Qty: 30 0RF polysaccharide iron complex [Ferrex 150] 150 mg iron Capsule 150 mg PO DAILY Qty: 30 0RF docusate sodium 100 mg Capsule 100 mg PO BID Qty: 14 0RF Discharge Orders: Discharge ED (Routine); Ordered 11/12/23 Ordered By: Champ Palma Referrals: Charity Salazar MD [Primary Care Provider] - Discharge Diet: Usual diet Discharge Activity: Resume usual activity Patient Instructions: Opioid Safety, Pain Management Activity Restrictions/Additional Instructions: Thank you for choosing [facility] for your healthcare needs today. It is very important that you follow up as instructed or that you return to the Emergency Department should you have concerns or if your condition changes or worsens in any way. You are seen today for left leg pain. X-rays did not show any shift or abnormality in the hardware from fracture repair of the left hip. White count was normal ultrasound your leg did not show any blood clot. 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
[2023-11-12 13:21] LABS: Basophils # 0.1 10^3/uL (0.0-0.1); Basophils % 1.1 %; Eosinophils # 0.1 10^3/uL (0.0-0.8); Eosinophils % 2.3 %; Hematocrit 36.4 % (36-47); Lymphocytes # 1.5 10^3/uL (0.8-4.8); Lymphocytes % 31.4 %; Mean Corpuscular HGB Conc 30.2 g/dL (30-55); Mean Corpuscular Hemoglobin 27.8 pg (27-33); Mean Corpuscular Volume 92.2 fl (85-98); Mean Platelet Volume 9.8 fL (7.4-10.4); Monocytes # 0.4 10^3/uL (0.2-0.9); Monocytes % 7.4 %; Neutrophils # 2.71 10^3/uL (1.8-7.7); Neutrophils % 57.6 %; Nucleated Red Blood Cells % 0 %; Platelet Count 269 10^3/cmm (157-399); Red Blood Count 3.95 10^6/uL (3.85-5.65); Red Cell Distribution Width 14.5 % (12.1-15.1); White Blood Count 4.71 10^3/uL (3.29-11.43)
[2023-11-12] MEDS: HYDROcodone-acetaminophen 10-325 mg Tablet 1 TAB PO (13:21)
[2023-11-12 13:47] LABS: Alanine Aminotransferase 9 U/L (0-33); Albumin Level 3.6 g/dL (3.5-5.2); Alkaline Phosphatase 220 U/L (35-105); Anion Gap 12.4 (5-19); Aspartate Amino Transferase 14 U/L (0-32); Blood Urea Nitrogen 15 mg/dL (8-23); Carbon Dioxide 29 mmol/L (22-29); Chloride 100 mmol/L (98-107); Creatinine Clr Calc Pharmacy 80.5875; Globulin 3.3 g/dL (1.3-4.6); Glomerular Filtration Rate 123.8 mL/min (90-130); Glucose 117 mg/dL (65-115); Osmolality Calculated 286 mOsm/kg (285-295); Potassium 4.4 mmol/L (3.5-5.1); Sodium 137 mmol/L (136-145); Total Bilirubin 0.2 mg/dL (0.15-1.2); Total Protein 6.9 g/dL (6.6-8.7)
[2023-11-12 14:15] VITALS: BP 125/88; PULSE 78; RESP 16; O2SAT 98
[2023-11-12 14:26] VITALS: RESP 16; O2SAT 98
[2023-11-12] MEDS: morphine 4 mg/mL SDV 1 mL IVP (14:26)
[2023-11-12 14:53] VITALS: RESP 16; O2SAT 98
== END 2023-11-12 14:59 | disposition home or self-care (01) ==
PROVIDERS: Emergency Provider Family Medicine; PCP Internal Medicine
DX: M79.605 Pain in left leg (principal); Z96.642 Presence of left artificial hip joint; I10 Essential (primary) hypertension
CPT/HCPCS: 36415; 73502; 80053; 85025; 93971; 96374; 99284; J2270

== ENCOUNTER → 2023-11-16 10:41 | Outpatient (BNVA) | payer MEDICARE, SELFPAY | PROVIDERS: PCP Internal Medicine; Visit Provider Student in an Organized Health Care Education/Training Program | DX: Z96.642 Presence of left artificial hip joint; S72.22XD Displaced subtrochanteric fracture of left femur, subsequent encounter for closed fracture with routine healing; X58.XXXD Exposure to other specified factors, subsequent encounter | CPT/HCPCS: 73502; 73552; 99024 ==

== ENCOUNTER 2023-11-25 22:10 | Emergency (ER) | payer MEDICARE, SELFPAY ==
[2023-11-25 22:15] VITALS: BP 128/78; PULSE 76; RESP 16; TEMP 36.5; O2SAT 94
--- NOTE | 2023-11-25 22:20 | USR_ITS ---
PROCEDURE INFORMATION: Exam: US Duplex Left Lower Extremity Veins, Limited Exam date and time: 11/25/2023 11:04 PM Age: 63 years old Clinical indication: Pain; Leg, upper; Prior surgery; Surgery date: 3-7 days post-operative; Surgery type: Left hip orif; Additional info: Radiating pain, swelling, recent surgery hip replacement TECHNIQUE: Imaging protocol: Real-time duplex ultrasound of the left extremity with 2-D simmons scale, color Doppler flow and spectral waveform analysis including responses to compression and other maneuvers (when performed) with image documentation. Limited exam focused on the left lower extremity veins. COMPARISON: CT hip LT wo con* [id number] 08/23/2023 1:09 PM FINDINGS: Left deep veins: Unremarkable. The common femoral, femoral, proximal profunda femoral and popliteal veins are patent without thrombus. Normal Doppler waveforms. Normal compressibility and/or augmentation response. Superficial veins: Greater saphenous vein at the saphenofemoral junction is patent without thrombus. Soft tissues: Unremarkable. US/CV venous duplex [facility] [id number] IMPRESSION: No evidence of deep vein thrombosis.
--- NOTE | 2023-11-25 22:20 | XRR_ITS ---
PROCEDURE INFORMATION: Exam: XR Left Hip Exam date and time: 11/25/2023 11:59 PM Age: 63 years old Clinical indication: Hip pain; Left hip; Prior surgery; Surgery date: 6+ months; Additional info: Pain, include pelvis TECHNIQUE: Imaging protocol: Radiologic exam of the left hip. Views: 2 or 3 views hip with pelvis when performed. COMPARISON: CR XR hip LT 2-3V wo/w pel* [id number] 11/16/2023 10:53 AM FINDINGS: Bones/joints: Left femur surgical hardware in place bridging a proximal femoral metaphyseal and proximal to mid femoral diaphyseal fracture. Soft tissues: Unremarkable. XR/XR hip LT 2-3V wo/w pel* [id number] IMPRESSION: Left femur surgical hardware in place bridging a proximal femoral metaphyseal and proximal to mid femoral diaphyseal fracture.
--- NOTE | 2023-11-25 22:20 | XRR_ITS ---
PROCEDURE INFORMATION: Exam: XR Lumbosacral Spine Exam date and time: 11/25/2023 11:57 PM Age: 63 years old Clinical indication: Low back pain; Prior surgery; Surgery date: 6+ months; Surgery type: Fusion TECHNIQUE: Imaging protocol: Radiologic exam of the lumbosacral spine. Views: 2 or 3 views. COMPARISON: CT lumbar spine wo con* [id number] 10/27/2020 6:39 PM FINDINGS: Bones/joints: Multilevel surgical hardware throughout the spine with chronic appearing T11, T12, L2 and L3 vertebral body compression fractures. Soft tissues: Unremarkable. XR/XR lumbar spine 2-3V* [id number] IMPRESSION: Multilevel surgical hardware throughout the spine with chronic appearing T11, T12, L2 and L3 vertebral body compression fractures.
--- NOTE | 2023-11-25 22:22 | W.ED.EXTPRO ---
HPI - Extremity Problem General: Chief complaint: Extremity Problem,Nontraumatic Stated complaint: Leg Pain Time Seen by Provider: 11/25/23 22:19 History of Present Illness: 63-year-old female comes in today for complaints of left inguinal pain radiating into her left lower leg starting this evening approximately 2 hours prior to arrival to the ER. Patient was brought in by EMS and had been given 100 mcg of fentanyl prior to arrival. Patient reports minimal relief. Patient had a recent hip replacement done 6 weeks ago. Patient just returned home after about 1 week since [facility] Patient does use Lovenox for blood thinner. Patient appears nontoxic. Patient appears in no acute distress. Review of Systems General: Reports: 10 or more systems reviewed and unremarkable except in HPI and below PFSH ED PFSH: Medical History At risk for polypharmacy Altered mental status Chronic hypertension Diagnosed at the age of 14 and controlled on medication managed by primary care provider. Anxiety and depression Currently on Cymbalta managed by her primary care provider. Hypothyroid Currently on levothyroxine managed by PMD No pertinent past medical history Denies: hypertension, diabetes, heart, lung, liver, kidney, thyroid, genital herpes, bleeding problems, or clotting problems. her primary care provider is Dr. Salazar Chronic low back pain without sciatica Currently on hydrocodone and baclofen managed by the pain clinic Surgical History History of back surgery 10/2020---jef placed in back S/P breast biopsy 2000-left breast-benign History of dental surgery tooth extraction Hx of section 03/26/89 History of ankle surgery 2006--LEFT x3. In [place] Family History Mother Family history of thyroid problem Thyroid disease Diabetes Hypertension Father Brain aneurysm Denies family history of Colon cancer Ovarian cancer DVT (deep venous thrombosis) Heart disease Breast cancer Suicide Pulmonary embolism Uterine cancer Social History Smoking and tobacco/nicotine status: never used tobacco/nicotine Alcohol intake: current Alcohol intake frequency: 0-2 Drinks per Day Substance/Drug Use: never Physical Exam Const: COMMON NORMALS: alert HENMT: COMMON NORMALS: normocephalic HEAD & SCALP: normocephalic Neck/C-Spine: COMMON NORMALS: full ROM Resp: COMMON NORMALS: normal respiratory effort Cardio: COMMON NORMALS: regular rate RATE: regular rate GI: COMMON NORMALS: Soft to palpation and non-tender PALPATION: Yes Soft to palpation Back/Pelvis: LUMBAR SPINE/LOWER BACK: Yes lumbar spinal tenderness Lumbar spinal tenderness location: L4 and L5 and Yes paraspinal muscle tenderness Lumbar paraspinal muscle tenderness: left Extremity: NARRATIVE EXTREMITY EXAM: Bilateral lower extremity swelling worse on the left. Distal pulses intact. Neuro: SENSORIUM/ORIENTATION: Yes alert Skin: COMMON NORMALS: turgor normal GENERAL SKIN EXAM: turgor normal Course Vital Signs: Vital signs: Vital Signs Temperature 97.7 F 11/25/23 22:15 Pulse Rate 71 11/25/23 22:34 Respiratory Rate 16 11/25/23 22:34 Blood Pressure 111/57 11/25/23 22:34 Pulse Oximetry 91 11/25/23 22:34 Oxygen Delivery Me thod Room Air 11/25/23 22:15 MDM - Extremity (Nontraumatic) Medical Decision Making Patient comes in today for complaints of left lower leg, hip, and low back pain. Patient states it started about 2 to 3 hours prior to arrival. Patient had hip replacement surgery about 6 weeks ago. Patient had fallen and broken her hip. Patient reports a pretty uneventful postop until tonight. Patient denies any falls or injury. Patient has been on Lovenox for blood thinner. Exam notes some increased swelling on the left versus the right lower extremity. Patient has palpable tenderness to the paraspinous muscles of the lower lumbar on the left, in the left inguinal. Differential diagnosis includes dislocation of hip, exacerbation of chronic back pain, fracture, DVT. X-ray of the lumbar spine noted some old fractures but no new abnormalities. X-ray of the hip noted a well alignment hardware from a recent repair. Laboratory values were unremarkable. Believe patient most likely has been doing more at home which is aggravated her pain. Patient is supposed to still be nonweightbearing to the leg but does admit that she has been applying weight to the leg at times to feed her dog. Patient appears nontoxic. Patient was given a dose of hydromorphone and was discharged home with recommendations to follow-up with primary care and workers compensation specialist. Lab Data 11/25/23 21:50 06/13/24 21:50 Radiology Impressions Hip/Pelvis X-Ray 11/25/23 22:20 IMPRESSION: Left femur surgical hardware in place bridging a proximal femoral metaphyseal and proximal to mid femoral diaphyseal fracture. Lumbar Spine X-Ray 11/25/23 22:20 IMPRESSION: Multilevel surgical hardware throughout the spine with chronic appearing T11, T12, L2 and L3 vertebral body compression fractures. Venous Duplex 11/25/23 22:20 IMPRESSION: No evidence of deep vein thrombosis. Laboratory Results WBC 5.03 10^3/uL (3.29-11.43) 11/25/23 21:50 RBC 3.81 10^6/uL (3.85-5.65) L 11/25/23 21:50 Hgb 10.70 g/dL (11.27-16.99) L 11/25/23 21:50 Hct 34.3 % (36-47) L 11/25/23 21:50 MCV 90.0 fl (85-98) 11/25/23 21:50 MCH 28.1 pg (27-33) 11/25/23 21:50 MCHC 31.2 g/dL (30-55) 11/25/23 21:50 RDW 14.4 % (12.1-15.1) 11/25/23 21:50 Plt Count 276 10^3/cmm (157-399) 11/25/23 21:50 MPV 9.6 fL (7.4-10.4) 11/25/23 21:50 Neut % (Auto) 46.8 % 11/25/23 21:50 Lymph % (Auto) 40.8 % 11/25/23 21:50 [place] % (Auto) 7.0 % 11/25/23 21:50 Eos % (Auto) 4.2 % 11/25/23 21:50 Baso % (Auto) 1.0 % 11/25/23 21:50 Neut # (Auto) 2.36 10^3/uL (1.8-7.7) 11/25/23 21:50 Lymph # (Auto) 2.1 10^3/uL (0.8-4.8) 11/25/23 21:50 [place] # (Auto) 0.4 10^3/uL (0.2-0.9) 11/25/23 21:50 Eos # (Auto) 0.2 10^3/uL (0.0-0.8) 11/25/23 21:50 Baso # (Auto) 0.1 10^3/uL (0.0-0.1) 11/25/23 21:50 Nucleated RBC % (auto) 0 % 11/25/23 21:50 Nucleated RBCs # 0.0 /100WBC 11/25/23 21:50 ESR 17 mm/hr (0-15) H 11/25/23 21:50 PT 14.50 SECONDS (12.1-14.9) 11/25/23 21:50 INR 1.09 (0.8-1.2) 11/25/23 21:50 APTT 30.3 SECONDS (23.9-36.7) 11/25/23 21:50 Sodium 141 mmol/L (136-145) 11/25/23 21:50 Potassium 4.1 mmol/L (3.5-5.1) 11/25/23 21:50 Chloride 107 mmol/L (98-107) 11/25/23 21:50 Carbon Dioxide 24 mmol/L (22-29) 11/25/23 21:50 Anion Gap 14.1 (5-19) 11/25/23 21:50 BUN 12 mg/dL (8-23) 11/25/23 21:50 Creatinine 0.4 mg/dL (0.5-0.9) L 11/25/23 21:50 GFR Calculation 160.2 mL/min (90-130) H 11/25/23 21:50 Glucose 143 mg/dL (65-115) H 11/25/23 21:50 Calculated Osmolality 294 mOsm/kg (285-295) 11/25/23 21:50 Calcium 8.6 mg/dL (8.5-10.5) 11/25/23 21:50 Total Bilirubin 0.2 mg/dL (0.15-1.2) 11/25/23 21:50 AST 14 U/L (0-32) 11/25/23 21:50 ALT 8 U/L (0-33) 11/25/23 21:50 Alkaline Phosphatase 194 U/L (35-105) H 11/25/23 21:50 C-Reactive Protein 15.6 mg/L (0.0-4.9) H 11/25/23 21:50 Total Protein 6.8 g/dL (6.6-8.7) 11/25/23 21:50 Albumin 3.8 g/dL (3.5-5.2) 11/25/23 21:50 Globulin 3.0 g/dL (1.3-4.6) 11/25/23 21:50 All radiology interpretation(s) finalized by discharge Discharge Plan Discharge Condition: Stable Prescriptions: No Action oxybutynin chloride 5 mg tablet See Rx Instructions .ROUTE .COMPLEX Rx Instructions: Take 5 mg orally in morning and 10mg at bedtime. baclofen 20 mg tablet 20 mg PO QID PRN (Reason: spasms) 30 Days Qty: 120 1RF levothyroxine 50 mcg capsule 50 mcg PO QAM duloxetine [Cymbalta] 30 mg capsule,delayed release(DR/EC) 60 mg PO DAILY omeprazole 40 mg capsule,delayed release(DR/EC) 40 mg PO DAILY propranolol 40 mg tablet 40 mg PO BID ropinirole 0.5 mg tablet 0.5 mg PO BID lisinopril 10 mg tablet 10 mg PO DAILY (DME) Bone Growth Stimulator E0748 See Rx Instructions .Route .MEDSUPPLY Qty: 1 0RF Rx Instructions: As directed sumatriptan succinate 100 mg tablet 100 mg PO DAILY PRN (Reason: Migraine Headache) [place] 10-325 mg Tablet 1 tab PO Q6H PRN (Reason: Pain) Benadryl 25 mg Capsule 25 mg PO Q6H PRN (Reason: UNKNOWN) oxycodone 15 mg Tablet,Oral Only,Ext.Rel.12 Hr 15 mg PO BID temazepam [Restoril] 15 mg Capsule 15 mg PO BEDTIME polysaccharide iron complex [Ferrex 150] 150 mg iron Capsule 150 mg PO DAILY Qty: 30 0RF docusate sodium 100 mg Capsule 100 mg PO BID Qty: 14 0RF Referrals: Charity Salazar MD [Primary Care Provider] - Coding Level of Care Code ED Shipping And Receiving Operator for Jade Gracia
[2023-11-25 22:29] LABS: Basophils # 0.1 10^3/uL (0.0-0.1); Eosinophils # 0.2 10^3/uL (0.0-0.8); Eosinophils % 4.2 %; Hematocrit 34.3 % (36-47); Lymphocytes # 2.1 10^3/uL (0.8-4.8); Lymphocytes % 40.8 %; Mean Corpuscular HGB Conc 31.2 g/dL (30-55); Mean Corpuscular Hemoglobin 28.1 pg (27-33); Mean Platelet Volume 9.6 fL (7.4-10.4); Monocytes # 0.4 10^3/uL (0.2-0.9); Neutrophils # 2.36 10^3/uL (1.8-7.7); Neutrophils % 46.8 %; Nucleated Red Blood Cells % 0 %; Platelet Count 276 10^3/cmm (157-399); Red Blood Count 3.81 10^6/uL (3.85-5.65); Red Cell Distribution Width 14.4 % (12.1-15.1); White Blood Count 5.03 10^3/uL (3.29-11.43)
[2023-11-25] MEDS: ketorolac 30 mg/mL INJ 15 MG IVP (22:32)
[2023-11-25 22:34] VITALS: BP 111/57; PULSE 71; RESP 16; O2SAT 91
[2023-11-25 22:34] LABS: Erythrocyte Sedimentation Rate 17 mm/hr (0-15)
[2023-11-25 22:41] LABS: INR 1.09 (0.8-1.2)
[2023-11-25 22:42] LABS: Partial Thromboplastin Time 30.3 SECONDS (23.9-36.7)
[2023-11-25 22:46] LABS: Alanine Aminotransferase 8 U/L (0-33); Albumin Level 3.8 g/dL (3.5-5.2); Alkaline Phosphatase 194 U/L (35-105); Anion Gap 14.1 (5-19); Aspartate Amino Transferase 14 U/L (0-32); Blood Urea Nitrogen 12 mg/dL (8-23); C Reactive Protein 15.6 mg/L (0.0-4.9); Calcium 8.6 mg/dL (8.5-10.5); Carbon Dioxide 24 mmol/L (22-29); Chloride 107 mmol/L (98-107); Glomerular Filtration Rate 160.2 mL/min (90-130); Glucose 143 mg/dL (65-115); Osmolality Calculated 294 mOsm/kg (285-295); Potassium 4.1 mmol/L (3.5-5.1); Sodium 141 mmol/L (136-145); Total Bilirubin 0.2 mg/dL (0.15-1.2); Total Protein 6.8 g/dL (6.6-8.7)
[2023-11-25 22:47] LABS: Creatinine Clr Calc Pharmacy 84.6033
[2023-11-26] MEDS: HYDROmorphone 1 mg/mL INJ 1 mL IVP (00:35)
[2023-11-26 00:36] VITALS: BP 117/70; PULSE 69; RESP 16; O2SAT 94
== END 2023-11-26 01:15 | disposition home or self-care (01) ==
PROVIDERS: Emergency Provider Nurse Practitioner Family; PCP Internal Medicine
DX: M25.552 Pain in left hip (principal); M79.662 Pain in left lower leg; M54.50 Low back pain, unspecified; Z96.642 Presence of left artificial hip joint; I10 Essential (primary) hypertension
CPT/HCPCS: 72100; 73502; 80053; 85025; 85610; 85651; 85730; 86140; 93971; 96374; 96375; 99285; J1170; J1885

== ENCOUNTER → 2023-12-02 13:18 | Outpatient (BNVA) | payer MEDICARE, SELFPAY | PROVIDERS: PCP Internal Medicine; Visit Provider Student in an Organized Health Care Education/Training Program | DX: S72.22XD Displaced subtrochanteric fracture of left femur, subsequent encounter for closed fracture with routine healing; X58.XXXD Exposure to other specified factors, subsequent encounter | CPT/HCPCS: 73502; 99024 ==

== ENCOUNTER → 2023-12-21 15:20 | Outpatient (BNVA) | payer MEDICARE, SELFPAY | PROVIDERS: PCP Internal Medicine; Visit Provider Student in an Organized Health Care Education/Training Program | DX: S72.002D Fracture of unspecified part of neck of left femur, subsequent encounter for closed fracture with routine healing; S72.22XD Displaced subtrochanteric fracture of left femur, subsequent encounter for closed fracture with routine healing; X58.XXXD Exposure to other specified factors, subsequent encounter | CPT/HCPCS: 73502; 99024; 99213 ==

== ENCOUNTER → 2024-01-04 12:19 | Outpatient (BNVA) | payer MEDICARE, SELFPAY | PROVIDERS: PCP Internal Medicine; Visit Provider Student in an Organized Health Care Education/Training Program | DX: S72.22XA Displaced subtrochanteric fracture of left femur, initial encounter for closed fracture (principal); S72.002A Fracture of unspecified part of neck of left femur, initial encounter for closed fracture; X58.XXXA Exposure to other specified factors, initial encounter | CPT/HCPCS: 73502 ==

== ENCOUNTER 2024-01-13 12:57 | Outpatient (RCR) | payer MEDICARE, SELFPAY | END 2024-02-12 23:59 | disposition home or self-care (01) | LOC: SPT 12:57 | PROVIDERS: PCP Internal Medicine; Visit Provider Student in an Organized Health Care Education/Training Program | DX: Z98.890 Other specified postprocedural states (principal) | CPT/HCPCS: 97110; 97162; 97530 ==

== ENCOUNTER → 2024-01-27 15:28 | Outpatient (BNVA) | payer MEDICARE, SELFPAY | PROVIDERS: PCP Internal Medicine; Visit Provider Student in an Organized Health Care Education/Training Program | DX: M70.61 Trochanteric bursitis, right hip; S72.22XA Displaced subtrochanteric fracture of left femur, initial encounter for closed fracture; X58.XXXA Exposure to other specified factors, initial encounter | CPT/HCPCS: 20610; 73523; 99213; J3301; J3490 ==

== ENCOUNTER 2024-02-13 06:36 | Outpatient (RCR) | payer MEDICARE, SELFPAY | END 2024-03-13 23:59 | disposition home or self-care (01) | LOC: SPT 06:36 | PROVIDERS: PCP Internal Medicine; Visit Provider Student in an Organized Health Care Education/Training Program | DX: Z98.890 Other specified postprocedural states (principal) | CPT/HCPCS: 97110 ==

== ENCOUNTER → 2024-02-25 10:40 | Outpatient (BNVA) | payer MEDICARE, SELFPAY | PROVIDERS: PCP Internal Medicine; Visit Provider Physician Assistant | DX: M25.552 Pain in left hip (principal); M54.50 Low back pain, unspecified | CPT/HCPCS: 73522; 99213 ==

== ENCOUNTER 2024-03-14 06:00 | Outpatient (RCR) | payer MEDICARE, SELFPAY | END 2024-03-30 23:59 | disposition home or self-care (01) | LOC: SPT 06:00 | PROVIDERS: PCP Internal Medicine; Visit Provider Student in an Organized Health Care Education/Training Program | DX: Z98.890 Other specified postprocedural states (principal) | CPT/HCPCS: 97110 ==

== ENCOUNTER → 2024-03-28 13:22 | Outpatient (BNVA) | payer MEDICARE, SELFPAY | PROVIDERS: PCP Internal Medicine; Visit Provider Student in an Organized Health Care Education/Training Program | DX: S72.22XD Displaced subtrochanteric fracture of left femur, subsequent encounter for closed fracture with routine healing; X58.XXXD Exposure to other specified factors, subsequent encounter | CPT/HCPCS: 73502; 99213 ==

== ENCOUNTER 2024-04-05 13:28 | Outpatient (CLI) | payer MEDICARE, SELFPAY | END 2024-04-05 13:29 | disposition home or self-care (01) | LOC: SLEEP 13:29 | PROVIDERS: PCP Internal Medicine; Visit Provider Internal Medicine | DX: R09.02 Hypoxemia (principal) | CPT/HCPCS: 94762 ==

== ENCOUNTER 2024-04-15 13:01 | Observation (INO) | payer MEDICARE, SELFPAY ==
[2024-04-15] VITALS (13 sets, daily range): BP systolic 139–179; BP diastolic 61–118; PULSE 55–82; RESP 15–20; TEMP 36.6–36.8; O2SAT 92–100; BMI 33.4
--- NOTE | 2024-04-15 13:04 | XRR_ITS ---
PROCEDURE INFORMATION: Exam: XR Chest Exam date and time: 04/15/2024 1:22 PM Age: 63 years old Clinical indication: Pain; Chest pressure; Additional info: Dyspnea/cough TECHNIQUE: Imaging protocol: Radiologic exam of the chest. Views: 1 view. COMPARISON: CR XR chest 1V portable [id number] 10/15/2023 9:29 PM FINDINGS: Tubes, catheters and devices: Posterior thoracolumbar instrumentation hardware. Lungs: Poor inspiratory effort. No focal consolidation. Stable calcific density in the right upper lung zone. Pleural spaces: Unremarkable. No pleural effusion. No pneumothorax. Heart/Mediastinum: Stable mild cardiomegaly and widened appearance of the mediastinum. Vasculature: Unfolding of the thoracic aorta. Bones/joints: Moderate degenerative disease of bilateral acromioclavicular joints. Narrowing of the right subacromial distance consistent with chronic rotator cuff disease. XR/XR chest 1V portable [id number] IMPRESSION: No acute cardiopulmonary process.
--- NOTE | 2024-04-15 13:04 | CTR_ITS ---
PROCEDURE INFORMATION: Exam: CT Head Without Contrast Exam date and time: 04/15/2024 1:17 PM Age: 63 years old Clinical indication: Altered mental status/memory loss; Confusion or disorientation; Additional info: AMS TECHNIQUE: Imaging protocol: Computed tomography of the head without contrast. Radiation optimization: All CT scans at this facility use at least one of these dose optimization techniques: automated exposure control; mA and/or kV adjustment per patient size (includes targeted exams where dose is matched to clinical indication); or iterative reconstruction. COMPARISON: CT head wo con* [id number] 10/15/2023 9:01 PM RADIATION DOSE METRICS: Total DLP (mGy-cm): 893.78 FINDINGS: Brain: There are bilateral periventricular white matter and centrum semiovale hypodensities, consistent with chronic ischemic small vessel disease. No recent infarct, intracranial bleed or mass effect. Old lacunar infarct in the left basal ganglia. Cerebral ventricles: No ventriculomegaly. Paranasal sinuses: Visualized sinuses are unremarkable. No fluid levels. Mastoid air cells: Visualized mastoid air cells are well aerated. Bones: Unremarkable. No acute fracture. Soft tissues: Unremarkable. CT/CT head wo con* [id number] IMPRESSION: No large territorial infarct or intracranial bleed.
--- NOTE | 2024-04-15 13:09 | ED_ITS ---
HPI - Altered Mental Status 2 General: Chief Complaint: Neuro Symptoms/Deficit Stated Complaint: confusion, fall Time Seen by Provider: 04/15/24 13:04 History of Present Illness: 63-year-old female presents emergency ro om complaint of confusion and a fall she does remember going to bed last night or taking her medication she denies fever chest pain or abdominal pain she is complaining of pain in her legs bilaterally states they have been feeling cold her daughter try to get hold her this morning was unable to do so eventually called law enforcement for a wellness check. Patient was brought in by EMS she is complaining of bilateral lower extremity pain her lower extremities are cool to the touch and somewhat cyanotic. She is otherwise awake and alert. She complaining of back pain as well but that has been chronic. She is on multiple falls in the past she does use a walker. She thinks she may have fallen at home. She does not remember anything from yesterday through today when coming to the emergency room. Related Data Home Medications Medication Instructions Recorded Confirmed levothyroxine 50 mcg capsule 50 mcg PO QAM 07/04/19 03/28/24 duloxetine 30 mg capsule,delayed 60 mg PO DAILY 09/10/20 03/28/24 release (Cymbalta) oxybutynin chloride 5 mg tablet See Rx Instructions .Route .COMPLEX 05/23/21 03/28/24 omeprazole 40 mg capsule,delayed 40 mg PO DAILY 07/26/23 03/28/24 release propranolol 40 mg tablet 40 mg PO BID 07/26/23 03/28/24 ropinirole 0.5 mg tablet 0.5 mg PO BID 07/26/23 03/28/24 sumatriptan succinate 100 mg tablet 100 mg PO DAILY PRN Migraine 08/23/23 03/28/24 Headache diphenhydramine HCl 25 mg capsule 25 mg PO Q6H PRN UNKNOWN 11/12/23 03/28/24 (Benadryl) oxycodone-acetaminophen 7.5 mg-325 1 tab PO Q8H PRN 01/27/24 03/28/24 mg tablet (Percocet) Previous Rx's Medication Instructions Recorded baclofen 20 mg tablet 20 mg PO QID PRN spasms 30 days 05/30/20 #120 tabs docusate sodium 100 mg capsule 100 mg PO BID #14 caps 10/20/23 polysaccharide iron complex 150 mg 150 mg PO DAILY #30 caps 10/20/23 iron capsule (Ferrex) hydrocodone 10 mg-acetaminophen 1 tab PO Q4H PRN Pain 7 days #42 01/18/24 325 mg tablet tabs methylprednisolone 4 mg tablets in See Rx Instructions PO PER PKG DIR 02/25/24 a dose pack (Medrol (Jeffery)) #21 ea Allergies Allergy/AdvReac Type Severity Reaction Status Date / Time Penicillins Allergy RASH Verified 03/28/24 13:28 Sulfa (Sulfonamide Allergy ANAPHYLAXIS Verified 03/28/24 13:28 Antibiotics) Review of Systems 2 Const: Denies: fever(s) or chills Card: Denies: chest pain Resp: Denies: dyspnea GI: Denies: abdominal pain : Denies: dysuria, urinary frequency or urinary urgency Musc: Denies: neck pain or back pain Skin/Breast: Denies: rash PFSH ED 2 PFSH: Medical History At risk for polypharmacy Altered mental status Chronic hypertension Diagnosed at the age of 14 and controlled on medication managed by primary care provider. Anxiety and depression Currently on Cymbalta managed by her primary care provider. Hypothyroid Currently on levothyroxine managed by PMD No pertinent past medical history Denies: hypertension, diabetes, heart, lung, liver, kidney, thyroid, genital herpes, bleeding problems, or clotting problems. her primary care provider is Dr. Salazar Chronic low back pain without sciatica Currently on hydrocodone and baclofen managed by the pain clinic Surgical History History of back surgery 10/2020---jef placed in back S/P breast biopsy 2000-left breast-benign History of dental surgery tooth extraction Hx of section 03/26/89 History of ankle surgery 2006--LEFT x3. In [place] Family History Mother Family history of thyroid problem Thyroid disease Diabetes Hypertension Father Brain aneurysm Denies family history of Colon cancer Ovarian cancer DVT (deep venous thrombosis) Heart disease Breast cancer Suicide Pulmonary embolism Uterine cancer Social History Smoking and tobacco/nicotine status: never used tobacco/nicotine Alcohol intake: current Alcohol intake frequency: 0-2 Drinks per Day Substance/Drug Use: never Physical Exam 2 Const: GENERAL APPEARANCE: cooperative ORIENTATION/CONSCIOUSNESS: Yes awake HENMT: COMMON NORMALS: normocephalic, atraumatic and hearing grossly normal bilaterally HEAD & SCALP: normocephalic and atraumatic Resp: COMMON NORMALS: normal respiratory effort, No retractions, No use of accessory muscles and clear to auscultation bilaterally AUSCULTATION: clear to auscultation bilaterally Cardio: COMMON NORMALS: regular rate, regular rhythm and No murmurs present (Cardio) RATE: regular rate RHYTHM: regular rhythm GI: COMMON NORMALS: Soft to palpation and No hepatosplenomegaly present A USCULTATION: Yes normoactive bowel sounds PALPATION: Yes Soft to palpation, No Tenderness to palpation present (GI), No Guarding due to palpation present (GI) and Yes No hepatosplenomegaly present Extremity: COMMON NORMALS: normal to inspection, capillary refill normal, no clubbing, cyanosis or edema, no calf tenderness and no pedal edema Skin: COMMON NORMALS: no rashes or lesions noted GENERAL SKIN EXAM: no rashes or lesions noted Course 2 Vital Signs: Vital signs: Vital Signs Temperature 97.9 F 04/15/24 13:02 Pulse Rate 70 04/15/24 17:30 Respiratory Rate 17 04/15/24 13:02 Blood Pressure 144/103 04/15/24 17:30 Pulse Oximetry 95 04/15/24 17:30 MDM - Altered Mental Status Medical Decision Making Patient has a mild right leg cellulitis also has a cystitis brief episode of confusion suspect that is related to this she has no focal neurologic deficits nothing to suggest a stroke at this time. She does have a mild altered mental status but that is already resolved. We encouraged patient stay in observation she initially wanted to leave but then changed her mind will admit her with the hospitalist orders written. No evidence of stroke at this time NIH score is 0. Medical Records I reviewed the patient's medical records. Lab Data I reviewed the patient's lab results. 04/15/24 13:15 04/15/24 13:15 Radiology Impressions Chest X-Ray 04/15/24 13:04 IMPRESSION: No acute cardiopulmonary process. Head CT 04/15/24 13:04 IMPRESSION: No large territorial infarct or intracranial bleed. Duplex Scan Lower Extremity Artery 04/15/24 14:04 IMPRESSION: No significant stenosis. Cervical Spine CT 04/15/24 14:12 IMPRESSION: No acute posttraumatic changes in the cervical spine. Laboratory Results WBC 7.74 10^3/uL (3.29-11.43) 04/15/24 13:15 RBC 4.33 10^6/uL (3.85-5.65) 04/15/24 13:15 Hgb 12.60 g/dL (11.27-16.99) 04/15/24 13:15 Hct 40.7 % (36-47) 04/15/24 13:15 MCV 94.0 fl (85-98) 04/15/24 13:15 MCH 29.1 pg (27-33) 04/15/24 13:15 MCHC 31.0 g/dL (30-55) 04/15/24 13:15 RDW 15.9 % (12.1-15.1) H 04/15/24 13:15 Plt Count 248 10^3/cmm (157-399) 04/15/24 13:15 MPV 9.6 fL (7.4-10.4) 04/15/24 13:15 Neut % (Auto) 64.7 % 04/15/24 13:15 Lymph % (Auto) 23.4 % 04/15/24 13:15 [place] % (Auto) 7.9 % 04/15/24 13:15 Eos % (Auto) 2.3 % 04/15/24 13:15 Baso % (Auto) 0.9 % 04/15/24 13:15 Neut # (Auto) 5.01 10^3/uL (1.8-7.7) 04/15/24 13:15 Lymph # (Auto) 1.8 10^3/uL (0.8-4.8) 04/15/24 13:15 [place] # (Auto) 0.6 10^3/uL (0.2-0.9) 04/15/24 13:15 Eos # (Auto) 0.2 10^3/uL (0.0-0.8) 04/15/24 13:15 Baso # (Auto) 0.1 10^3/uL (0.0-0.1) 04/15/24 13:15 Nucleated RBC % (auto) 0 % 04/15/24 13:15 Nucleated RBCs # 0.0 /100WBC 04/15/24 13:15 Sodium 141 mmol/L (136-145) 04/15/24 13:15 Potassium 4.5 mmol/L (3.5-5.1) 04/15/24 13:15 Chloride 102 mmol/L (98-107) 04/15/24 13:15 Carbon Dioxide 28 mmol/L (22-29) 04/15/24 13:15 Anion Gap 15.5 (5-19) 04/15/24 13:15 BUN 23 mg/dL (8-23) 04/15/24 13:15 Creatinine 0.9 mg/dL (0.5-0.9) 04/15/24 13:15 GFR Calculation 62.8 mL/min (90-130) L 04/15/24 13:15 Glucose 129 mg/dL (65-115) H 04/15/24 13:15 Calculated Osmolality 297 mOsm/kg (285-295) H 04/15/24 13:15 Lactic Acid 1.2 mmol/L (0.5-2.2) 04/15/24 13:15 Calcium 8.5 mg/dL (8.5-10.5) 04/15/24 13:15 Total Bilirubin 0.4 mg/dL (0.15-1.2) 04/15/24 13:15 AST 17 U/L (0-32) 04/15/24 13:15 ALT 13 U/L (0-33) 04/15/24 13:15 Alkaline Phosphatase 140 U/L (35-105) H 04/15/24 13:15 Troponin T Baseline 24 ng/L (0-10) H 04/15/24 14:03 Troponin T 120 Minute 22.84 ng/L (0-10) H 04/15/24 16:16 Delta Troponin T -1.16 ABS# (0-10) L 04/15/24 16:16 Total Protein 7.5 g/dL (6.6-8.7) 04/15/24 13:15 Albumin 4.1 g/dL (3.5-5.2) 04/15/24 13:15 Globulin 3.4 g/dL (1.3-4.6) 04/15/24 13:15 Urine Color Yellow (Yellow) 04/15/24 14:23 Urine Appearance Clear (CLEAR) 04/15/24 14:23 Urine pH 5.5 (5-7) 04/15/24 14:23 Ur Specific [place] 1.018 (1.005-1.030) 04/15/24 14:23 Urine Protein Negative (Negative) 04/15/24 14:23 Urine Glucose (UA) Negative (Normal) 04/15/24 14:23 Urine Ketones Trace (Negative) 04/15/24 14:23 Urine Blood Negative (Negative) 04/15/24 14:23 Urine Nitrate Negative (Negative) 04/15/24 14:23 Urine Bilirubin Negative (Negative) 04/15/24 14:23 Urine Urobilinogen 1.0 mg/dL (Negative) 04/15/24 14:23 Ur Leukocyte Esterase Trace (Negative) A 04/15/24 14:23 Urine RBC 0-2 /hpf (0-2) 04/15/24 14:23 Urine WBC 5-10 /hpf (0-5) H 04/15/24 14:23 Ur Squamous Epith Cells 6-10 /hpf (0-5) 04/15/24 14:23 Calcium Oxalate Crystal 5-10 /hpf H 04/15/24 14:23 Amorphous Sediment Not Reportable 04/15/24 14:23 Urine Bacteria 1+ /hpf (NONE) H 04/15/24 14:23 Hyaline Casts 24.82 /lpf 04/15/24 14:23 Urine Mucus 1+ /hpf 04/15/24 14:23 Coronavirus (PCR) Negative (Negative) 04/15/24 13:33 Influenza A (PCR) Negative (Negative) 04/15/24 13:33 Influenza Type B (PCR) Negative (Negative) 04/15/24 13:33 RSV (PCR) Negative (Negative) 04/15/24 13:33 All radiology interpretation(s) finalized by discharge Discharge Plan Discharge Patient Disposition: Admitted As Inpatient Admit Provider: Yu Fonseca Clinical Impression: Cellulitis, Altered mental status, Cystitis Condition: Stable Coding Level of Care Code ED Clinical Pharmacy Technician for Chg Fwd NIH stroke score NIHSS Level Of Consciousness - 1a: 0 Level Of Consciousness Questions - 1b: Both Correct Level Of Consciousness Commands - 1c: Both Correct Best Gaze - 2: Normal Visual Zee - 3: No Visual Loss Facial Palsy - 4: Normal Motor Arm Right - 5: No Drift Motor Arm Left - 5: No Drift Motor Leg Right - 6: No Drift Motor Leg Left - 6: No Drift Limb Ataxia - 7: Absent Sensory - 8: Normal Best Language - 9: No Aphasia Dysarthia - 10: Normal Extinction And Inattention - 11: 0 Score Total Score: 0
[2024-04-15 13:27] LABS: Basophils # 0.1 10^3/uL (0.0-0.1); Basophils % 0.9 %; Eosinophils # 0.2 10^3/uL (0.0-0.8); Eosinophils % 2.3 %; Hematocrit 40.7 % (36-47); Lymphocytes # 1.8 10^3/uL (0.8-4.8); Lymphocytes % 23.4 %; Mean Corpuscular Hemoglobin 29.1 pg (27-33); Mean Platelet Volume 9.6 fL (7.4-10.4); Monocytes # 0.6 10^3/uL (0.2-0.9); Monocytes % 7.9 %; Neutrophils # 5.01 10^3/uL (1.8-7.7); Neutrophils % 64.7 %; Nucleated Red Blood Cells % 0 %; Platelet Count 248 10^3/cmm (157-399); Red Blood Count 4.33 10^6/uL (3.85-5.65); Red Cell Distribution Width 15.9 % (12.1-15.1); White Blood Count 7.74 10^3/uL (3.29-11.43)
--- NOTE | 2024-04-15 13:30 | PC.NURSE ---
Patient's daughter just called the ER, I spoke with her regarding her mother. Patient's daughter states that her mother sometimes mixes up her medications and takes her chronic pain medicine with her muscle relaxers and is confused or she takes double her muscle relaxers and forgets to take her pain meds, or takes double her pain meds and no muscle relaxers. Patient's daughter is worried that her mother may be mixing up her medications or taking too many.
[2024-04-15 13:46] LABS: Alanine Aminotransferase 13 U/L (0-33); Albumin Level 4.1 g/dL (3.5-5.2); Alkaline Phosphatase 140 U/L (35-105); Anion Gap 15.5 (5-19); Aspartate Amino Transferase 17 U/L (0-32); Blood Urea Nitrogen 23 mg/dL (8-23); Calcium 8.5 mg/dL (8.5-10.5); Carbon Dioxide 28 mmol/L (22-29); Chloride 102 mmol/L (98-107); Globulin 3.4 g/dL (1.3-4.6); Glomerular Filtration Rate 62.8 mL/min (90-130); Glucose 129 mg/dL (65-115); Osmolality Calculated 297 mOsm/kg (285-295); Potassium 4.5 mmol/L (3.5-5.1); Sodium 141 mmol/L (136-145); Total Bilirubin 0.4 mg/dL (0.15-1.2); Total Protein 7.5 g/dL (6.6-8.7)
[2024-04-15 13:47] LABS: Lactic Sepsis W/Reflex 1.2 mmol/L (0.5-2.2)
--- NOTE | 2024-04-15 14:04 | USR_ITS ---
PROCEDURE INFORMATION: Exam: US Duplex Bilateral Lower Extremity Arteries Exam date and time: 04/15/2024 3:04 PM Age: 63 years old Clinical indication: Pain; Leg, lower; Bilateral; Additional info: Cold lower extremities, pain TECHNIQUE: Imaging protocol: Real-time ultrasound scan of the arteries of the bilateral lower extremities with 2-D simmons scale, color Doppler flow and spectral waveform analysis. Images documented and saved. COMPARISON: CT ang ches abdpel [id number] 01/14/2022 5:08 PM FINDINGS: Right common femoral artery: No occlusion or significant stenosis. Normal waveform. Right superficial femoral artery: No occlusion or significant stenosis. Normal waveform. Right popliteal artery: No occlusion or significant stenosis. Normal waveform. Right calf/foot arteries: No occlusion or significant stenosis in the visualized arteries. Normal waveforms. Dorsalis pedis artery is patent. Left common femoral artery: No occlusion or significant stenosis. Normal waveform. Left superficial femoral artery: No occlusion or significant stenosis. Normal waveform. Left popliteal artery: No occlusion or significant stenosis. Normal waveform. Left calf/foot arteries: No occlusion or significant stenosis in the visualized arteries. Normal waveforms. Dorsalis pedis artery [place] patent. US/[place] [id number] IMPRESSION: No significant stenosis.
--- NOTE | 2024-04-15 14:12 | CTR_ITS ---
PROCEDURE INFORMATION: Exam: CT Cervical Spine Without Contrast Exam date and time: 04/15/2024 2:35 PM Age: 63 years old Clinical indication: Injury or trauma; Fall; Blunt trauma TECHNIQUE: Imaging protocol: Computed tomography of the cervical spine without contrast. Radiation optimization: All CT scans at this facility use at least one of these dose optimization techniques: automated exposure control; mA and/or kV adjustment per patient size (includes targeted exams where dose is matched to clinical indication); or iterative reconstruction. COMPARISON: CT cervical spin wo con* [id number] 10/06/2021 6:11 PM RADIATION DOSE METRICS: Total DLP (mGy-cm): 264.97 FINDINGS: Bones: Moderate degenerative disease at the anterior C1-C2 articulation. No compression deformity. No spondylolisthesis. Mild multilevel degenerative disease of the cervical spine with small anterior osteophytes. No acute fracture. Lungs: Lung apices are normal. Vasculature: Bilateral carotid artery calcifications. Soft tissues: Unremarkable. CT/CT cervical spin wo con* [id number] IMPRESSION: No acute posttraumatic changes in the cervical spine.
[2024-04-15 14:22] LABS: Covid PCR NEGATIVE (Negative); Influenza A NEGATIVE (Negative); Influenza B NEGATIVE (Negative); Respiratory Syncytial Virus Ce NEGATIVE (Negative)
--- NOTE | 2024-04-15 14:26 | ECG_ITS ---
[facility] Test Date: 2024-04-15 Pat Name: Niki Agosto Department: Room: Gender: Female It Associate: : 1960 Requested By: Champ Diaz Order Number: [id number] Kirti MD: Delmy Madison M.D. Measurements Intervals [place] Heart Rate: 63 P: 13 [place]: 167 QRS: -4 QRSD: 90 T: 30 QT: 426 QTc: 437 Interpretive Statements SINUS RHYTHM LOW QRS VOLTAGE IN PRECORDIAL LEADS Compared to ECG 10/15/2023 22:22:10 Low QRS voltage now present Myocardial infarct finding no longer present Electronically Signed On 04-16-2024 14:07:57 HOSPITALIST by Delmy Madison M.D. [email or web address]
[2024-04-15 14:33] LABS: Troponin(5th) Baseline 24 ng/L (0-10)
[2024-04-15 14:34] LABS: Bilirubin Urine Negative (Negative); Blood Urine Negative (Negative); Glucose Urine UA Negative (Normal); Ketones Urine Trace (Negative); Leukocyte Esterase Urine Trace (Negative); Nitrate Urine Negative (Negative); Protein Urine Negative (Negative); Specific Gravity, Urine 1.018 (1.005-1.030); Urine Appearance Clear (CLEAR); Urine Color Yellow (Yellow); pH Urine 5.5 (5-7)
[2024-04-15 14:40] LABS: Add Urine Microscopic? YES; Hyaline Casts Urine 24.82 /lpf; RBC Urine 0-2 /hpf (0-2)
[2024-04-15 14:51] LABS: Bacteria Urine 1+ /hpf; Mucus Urine 1+ /hpf; UA Slide Review UA Slide Review Perf
[2024-04-15] MEDS: cefTRIAXone 1,000 mg SDV 1000 MG IVP (15:53)
--- NOTE | 2024-04-15 16:03 | ECG_ITS ---
[facility] Date: 2024-04-15 Pat Name: Niki Agosto Department: Room: Gender: Female Paper Sorter: : 1960 Requested By: Champ Diaz Order Number: [id number] Kirti MD: Delmy Madison M.D. Measurements Intervals [place] Rate: 68 P: 32 MT: 176 QRS: -1 QRSD: 106 T: 35 QT: 405 QTc: 432 Interpretive Statements SINUS RHYTHM LOW QRS VOLTAGE IN PRECORDIAL LEADS Compared to ECG 04/15/2024 14:26:26 No significant changes Electronically Signed On 04-16-2024 14:15:15 SUPERVISOR HISTOLOGY by Delmy Madison M.D. [email or web address]
[2024-04-15 16:43] LABS: Troponin 5 2HR 22.84 ng/L (0-10); Troponin 5 2HR Delta -1.16 ABS# (0-10)
[2024-04-15] MEDS: HYDROcodone-acetaminophen 10-325 mg Tablet 1 TAB PO ×2 (17:31→21:27)
--- NOTE | 2024-04-15 17:33 | P.HP_ITS ---
Providers/Chief Complaint 2 Admitting Physician: Yu Fonseca MD Primary Care Provider: Charity Salazar MD Chief Complaint: confusion, fall History of Present Illness Niki Agosto is a 63 year old female with a past medical history of chronic back pain status post surgery recent history of hospitalization for left hip fracture test for surgery, chronic pain, on hydrocodone, baclofen, no history of strokes, no history of diabetes, no history of COPD, who presents [facility] for confusion. Patient tells me that she lives at home by herself, she is alert to person, to place, to time she follows commands, no focal weakness no slurring of words, no focal paresthesias, she her only complaint right now is severe back pain she cannot tolerate the gurney that she is in due to severe back pain. 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 She tells me that she is quite hazy on the events of yesterday, she must of friend her dog she tells me, as he always asks for food, but she does not remember what she had for breakfast this morning, the reason she came to the hospital was that she was kind of hazy, no seizure-like episodes reported no facial droop no slurring words no word finding difficulty no focal weakness no falls no injuries. Denies any flank pain, no abdominal pain, no nausea, no vomiting. She does report that her bilateral lower extremities are a little bit more red erythematous, warm, her friend was reporting that to her a few days ago. She did report to the ER provider pain in her legs, but currently denies any pain currently. Her daughter was trying to reach her today, but was able to reach her, so she had a long [place], to her home for a wellness check. Review of Systems 2 Const: Denies: fever(s), chills, fatigue or malaise Eyes: Denies: change in vision Card: Denies: chest pain Resp: Denies: dyspnea GI: Denies: abdominal pain : Denies: flank pain Musc: Reports: neck pain and back pain Skin/Breast: Reports: rash and erythema Neuro: Reports: confusion; Denies: headache(s), numbness in extremities, weakness in extremities, sensory changes, lack of coordination, difficulty walking, frequent falls, dizziness, vertigo, Slurred speech present, difficulty communicating thoughts, seizure-like activity or involuntary movements Psych: Denies: anxiety Endo: Denies: polyuria Medications/Allergies Home Medications Medication Instructions Recorded Confirmed Last Taken Type levothyroxine 50 mcg capsule 50 mcg PO QAM 07/04/19 03/28/24 11/12/23 History baclofen 20 mg tablet 20 mg PO QID PRN spasms 30 days 05/30/20 03/28/24 10/15/23 11:00 Rx #120 tabs duloxetine 30 mg capsule,delayed 60 mg PO DAILY 09/10/20 03/28/24 11/12/23 History release (Cymbalta) oxybutynin chloride 5 mg tablet See Rx Instructions .Route .COMPLEX 05/23/21 03/28/24 11/12/23 History omeprazole 40 mg capsule,delayed 40 mg PO DAILY 07/26/23 03/28/24 11/12/23 History release propranolol 40 mg tablet 40 mg PO BID 07/26/23 03/28/24 11/12/23 History ropinirole 0.5 mg tablet 0.5 mg PO BID 07/26/23 03/28/24 10/15/23 10:00 History sumatriptan succinate 100 mg tablet 100 mg PO DAILY PRN Migraine 08/23/23 03/28/24 10/15/23 10:00 History Headache docusate sodium 100 mg capsule 100 mg PO BID #14 caps 10/20/23 03/28/24 11/12/23 Rx polysaccharide iron complex 150 mg 150 mg PO DAILY #30 caps 10/20/23 03/28/24 11/12/23 Rx iron capsule (Ferrex) diphenhydramine HCl 25 mg capsule 25 mg PO Q6H PRN UNKNOWN 11/12/23 03/28/24 Unknown History (Benadryl) hydrocodone 10 mg-acetaminophen 1 tab PO Q4H PRN Pain 7 days #42 01/18/24 03/28/24 Unknown Rx 325 mg tablet tabs oxycodone-acetaminophen 7.5 mg-325 1 tab PO Q8H PRN 01/27/24 03/28/24 Unknown History mg tablet (Percocet) methylprednisolone 4 mg tablets in See Rx Instructions PO PER PKG DIR 02/25/24 03/28/24 Unknown Rx a dose pack (Medrol (Jeffery)) #21 ea Allergies Allergy/AdvReac Type Severity Reaction Status Date / Time Penicillins Allergy RASH Verified 03/28/24 13:28 Sulfa (Sulfonamide Allergy ANAPHYLAXIS Verified 03/28/24 13:28 Antibiotics) PFSH Acute 2 PFSH: Medical History (Updated 04/15/24 @ 17:40 by Maurizio Vences MD) At risk for polypharmacy Altered mental status Chronic hypertension Diagnosed at the age of 14 and controlled on medication managed by primary care provider. Anxiety and depression Currently on Cymbalta managed by her primary care provider. Hypothyroid Currently on levothyroxine managed by PMD No pertinent past medical history Denies: hypertension, diabetes, heart, lung, liver, kidney, thyroid, genital herpes, bleeding problems, or clotting problems. her primary care provider is Dr. Salazar Chronic low back pain without sciatica Currently on hydrocodone and baclofen managed by the pain clinic Surgical History History of back surgery 10/2020---jef placed in back S/P breast biopsy 2000-left breast-benign History of dental surgery tooth extraction Hx of section 03/26/89 History of ankle surgery 2006--LEFT x3. In [place] Family History Mother Family history of thyroid problem Thyroid disease Diabetes Hypertension Father Brain aneurysm Denies family history of Colon cancer Ovarian cancer DVT (deep venous thrombosis) Heart disease Breast cancer Suicide Pulmonary embolism Uterine cancer Social History Smoking and tobacco/nicotine status: never used tobacco/nicotine Alcohol intake: current Alcohol intake frequency: 0-2 Drinks per Day Substance/Drug Use: never Vitals/I&O/Wt Last Vital Signs Temp 97.9 F 04/15/24 13:02 Pulse 64 04/15/24 14:44 Resp 17 04/15/24 13:02 BP 162/97 04/15/24 14:44 Pulse Ox 97 04/15/24 14:44 Weight last 48 hrs Weight 99.79 kg Physical Exam 2 Const: COMMON NORMALS: no acute distress and patient oriented x3 HENMT: COMMON NORMALS: normocephalic HEAD & SCALP: normocephalic Eye: COMMON NORMALS: Equal, round and reactive pupils present Neck/C-Spine: COMMON NORMALS: no JVD Resp: COMMON NORMALS: normal respiratory effort, No retractions, No use of accessory muscles and clear to auscultation bilaterally AUSCULTATION: clear to auscultation bilaterally Cardio: COMMON NORMALS: no JVD, regular rate, regular rhythm, S1 normal heart sound present and S2 normal heart sound present RATE: regular rate RHYTHM: regular rhythm HEART SOUNDS: S1 normal heart sound present and S2 normal heart sound present GI: COMMON NORMALS: Normal to inspection, nondistended, normoactive bowel sounds present, Soft to palpation, non-tender, No hepatosplenomegaly present, no masses and no bruits PALPATION: Yes Soft to palpation and Yes No hepatosplenomegaly present Extremity: COMMON NORMALS: no pedal edema NARRATIVE EXTREMITY EXAM: Mild mottling of bilateral extremities, bluish hue to bilateral lower extremities No complaints of pain, no pain, no pulselessness, no Procrit therapy and 1+ pitting edema DP PT pulses palpable bilaterally Bilateral shins erythema, swelling, warmth, tenderness Neuro: COMMON NORMALS: patient oriented x3, CN's II-XII intact bilaterally and moves all extremities Psych: COMMON NORMALS: mental status grossly normal Data 04/15/24 13:15 04/15/24 13:15 Micro: Microbiology 04/15/24 14:05 Blood Culture - Preliminary Blood SPECIMEN COLLECTED 04/15/24 14:03 Blood Culture - Preliminary Blood SPECIMEN COLLECTED A&P Assessment and plan (1) Altered mental status: (2) UTI (urinary tract infection): (3) Cellulitis: (4) Pain in both lower extremities: Plan Altered mental status ? Potentially related to UTI ? No focal neurologic deficits, no facial droop, no slurring words ? No seizure-like symptoms ? Possibly transient global amnesia? As she does not remember the events of yesterday and this morning -For now continue aspirin, statin, telemetry monitoring ? Neurochecks ? NIH stroke scale # Aspiration precautions # Telemetry monitoring # CT head no acute findings ? Carotid artery ultrasound # Cardiac echo -Possible polypharmacy with baclofen, narcotics? Monitor -Of note patient had a similar hospital admission 12/15/2021, concerns for altered mental status related to opiates, mood stabilizers, muscle relaxers Urinary tract infection ? Follow urine cultures ? Cefepime Bilateral lower extremity cellulitis ? Will add Zyvox ? Cefepime Swelling of bilateral extremities ? Given recent surgery, will order venous ultrasound for DVT Bilateral lower extremity bluish hue, -No pain reported to me, no pulselessness, no poikilothermia -Arterial ultrasound -FINDINGS: Right common femoral artery: No occlusion or significant stenosis. Normal waveform. Right superficial femoral artery: No occlusion or significant stenosis. Normal waveform. Right popliteal artery: No occlusion or significant stenosis. Normal waveform. Right calf/foot arteries: No occlusion or significant stenosis in the visualized arteries. Normal waveforms. Dorsalis pedis artery is patent. Left common femoral artery: No occlusion or significant stenosis. Normal waveform. Left superficial femoral artery: No occlusion or significant stenosis. Normal waveform. Left popliteal artery: No occlusion or significant stenosis. Normal waveform. Left calf/foot arteries: No occlusion or significant stenosis in the visualized arteries. Normal waveforms. Dorsalis pedis artery is patent. US/[place] [id number] IMPRESSION: No significant stenosis. -Will monitor Elevated troponins, No complaints of chest pain Full code Lovenox for DVT prophylaxis Patient requires hospitalization, outpatient observation, for altered mental status, UTI, cellulitis Attestations 2 Medical Necessity Statement*: Patient requires hospitalization, outpatient with observation, for altered mental status, UTI, cellulitis Diagnoses Altered mental status R41.82 UTI (urinary tract infection) N39.0 Cellulitis L03.90 Pain in both lower extremities M79.604; M79.605
--- NOTE | 2024-04-15 17:47 | ECG_ITS ---
[facility] Test Date: 2024-04-15 Pat Name: Niki Agosto Department: Room: 269 Gender: Female Slip Sheeter: : 1960 Requested By: Maurizio Vences Order Number: [id number] Kirti MD: Delmy Madison M.D. Measurements Intervals [place] Rate: 68 P: 0 SD: 0 QRS: -1 QRSD: 86 T: 40 QT: 377 QTc: 402 Interpretive Statements Artifact at baseline Normal sinus rhythm LOW QRS VOLTAGE IN PRECORDIAL LEADS POSSIBLE RIGHT VENTRICULAR CONDUCTION DELAY [ Compared to ECG 04/15/2024 16:17:55 No significant change Electronically Signed On 04-16-2024 14:06:47 CARDIAC CATH TECH by Delmy Madison M.D. [id number]
[2024-04-15 17:59] LABS: INR 1.07 (0.8-1.2)
[2024-04-15 18:14] LABS: NT Pro B Type Natriuretic Pept 323 pg/mL (0-125)
[2024-04-15 18:35] LABS: Erythrocyte Sedimentation Rate 10 mm/hr (0-15)
[2024-04-15 18:54] LABS: C Reactive Protein 4.9 mg/L (0.0-4.9); Cholesterol 211 mg/dL (0-200); HDL Cholesterol 88 mg/dL (60-100); LDL Cholesterol Calculated 98 mg/dL (50-129); LDL HDL Ratio 1.11 RATIO (0.00-3.22); Thyroid Stimulating Hormone 0.96 uIU/mL (0.27-4.20); Triglycerides 124 mg/dL (0-150)
[2024-04-15 18:58] LABS: Amphetamines Screen Urine Negative (Negative); Barbiturates Screen Urine Negative (Negative); Benzodiazepines Screen Urine Negative (Negative); Cocaine Screen Urine Negative (Negative); Opiate Screen Urine Positive (Negative); PCP Screen Urine Negative (Negative); THC Screen Urine Negative (Negative)
[2024-04-15 18:59] LABS: Alcohol Level < 10 mg/dL (0-10)
[2024-04-15] MEDS: aspirin 81 mg EC Tablet PO (19:31)
[2024-04-15] MEDS: propranolol 40 mg Tablet PO (19:31)
[2024-04-15] MEDS: pantoprazole 40 mg SDV IVP (19:31)
[2024-04-15] MEDS: linezolid premix 600 MG/300 ML PREMIX 300 MG IV (19:39)
[2024-04-15 19:53] LABS: Estmated Average Glucose 131; Hemoglobin A1C 6.2 % (4.0-6.0)
[2024-04-15 19:54] LABS: Troponin 5 6HR 22.36 ng/L (0-10)
[2024-04-15 19:55] LABS: Troponin 5 6HR Delta -1.64 ng/L (0-12)
--- NOTE | 2024-04-15 20:03 | ECG_ITS ---
[facility] Date: 2024-04-15 Pat Name: Niki Agosto Department: Room: 269 Gender: Female Blind Aide: : 1960 Requested By: Champ Diaz Order Number: [id number] Kirti MD: Delmy Madison M.D. Measurements Intervals [place] Rate: 82 P: 40 [place]: 171 QRS: -12 QRSD: 97 T: 30 QT: 356 QTc: 416 Interpretive Statements SINUS RHYTHM Compared to ECG 04/15/2024 17:47:12 No significant change Electronically Signed On 04-16-2024 14:14:40 INPUT OUTPUT CLERK by Delmy Madison M.D. [id number]
[2024-04-15 20:10] LABS: Procalcitonin 0.05 ng/mL (0-0.5)
[2024-04-15] MEDS: oxybutynin 5 mg Tablet 10 MG PO (20:30)
[2024-04-15] MEDS: atorvastatin 40 mg Tablet PO (20:30)
[2024-04-15] MEDS: sucralfate 1 gm/10 mL Oral Liq UDC PO (20:30)
[2024-04-15] MEDS: lisinopril 10 mg Tablet PO (21:27)
[2024-04-15] MEDS: baclofen 10 mg Tablet 20 MG PO (21:32)
--- NOTE | 2024-04-15 23:49 | ECG_ITS ---
[facility] Test Date: 2024-04-15 Pat Name: Niki Agosto Department: Room: 269 Gender: Female Resort Host: : 1960 Requested By: Maurizio Vences Order Number: [id number] Reading MD: Delmy Madison M.D. Measurements Intervals [place] Rate: 75 P: 12 MD: 160 QRS: -2 QRSD: 96 T: 29 QT: 374 QTc: 418 Interpretive Statements SINUS RHYTHM Compared to ECG 04/15/2024 19:59:37 No significant changes Electronically Signed On 04-16-2024 14:12:59 LANDSCAPER by Delmy Madison M.D. [id number]
[2024-04-16] VITALS (9 sets, daily range): BP systolic 122–157; BP diastolic 70–94; PULSE 62–88; RESP 14–20; TEMP 36.4–37; O2SAT 92–96
[2024-04-16] MEDS: HYDROcodone-acetaminophen 10-325 mg Tablet 1 TAB PO ×3 (02:24→10:19)
[2024-04-16] MEDS: cefepime 1,000 MG in sodium chloride 0.9% (plus) 50 ML 100 MG IV ×2 (02:30→14:34)
[2024-04-16] MEDS: pantoprazole 40 mg SDV IVP ×2 (05:44→18:43)
[2024-04-16] MEDS: levothyroxine 50 mcg Tablet PO (05:44)
[2024-04-16] MEDS: linezolid premix 600 MG/300 ML PREMIX 300 MG IV ×2 (05:58→18:44)
[2024-04-16] MEDS: sucralfate 1 gm/10 mL Oral Liq UDC PO ×4 (05:58→20:00)
[2024-04-16 06:38] LABS: Basophils # 0.1 10^3/uL (0.0-0.1); Basophils % 0.9 %; Eosinophils # 0.2 10^3/uL (0.0-0.8); Eosinophils % 3.4 %; Hematocrit 37.7 % (36-47); Lymphocytes # 1.4 10^3/uL (0.8-4.8); Lymphocytes % 25.3 %; Mean Corpuscular Volume 93.3 fl (85-98); Mean Platelet Volume 9.9 fL (7.4-10.4); Monocytes # 0.4 10^3/uL (0.2-0.9); Monocytes % 7.7 %; Neutrophils # 3.49 10^3/uL (1.8-7.7); Neutrophils % 62.2 %; Nucleated Red Blood Cells % 0 %; Platelet Count 204 10^3/cmm (157-399); Red Blood Count 4.04 10^6/uL (3.85-5.65); Red Cell Distribution Width 15.9 % (12.1-15.1); White Blood Count 5.61 10^3/uL (3.29-11.43)
--- NOTE | 2024-04-16 06:49 | USR_ITS ---
PROCEDURE INFORMATION: Exam: US Duplex Bilateral Extracranial Arteries; Complete; Carotid Arteries Exam date and time: 04/16/2024 10:40 AM Age: 63 years old Clinical indication: Screening exam; Patient HX: Carotid occlusion TECHNIQUE: Imaging protocol: Real-time duplex ultrasound scan of the bilateral extracranial arteries combining simmons scale, color Doppler and spectral waveform analysis with image documentation. Complete exam. Exam focused on the carotid arteries. COMPARISON: CT cervical spin wo con* [id number] 04/15/2024 2:35 PM FINDINGS: Right common carotid artery: Unremarkable. No occlusion or significant stenosis. Waveforms are normal. Right internal carotid artery: Unremarkable. No occlusion or significant stenosis. Waveforms are normal. Right ICA/CCA ratio: Within normal limits. Right external carotid artery: No stenosis in the origin. Right vertebral artery: Unremarkable. Antegrade flow. Left common carotid artery: Unremarkable. No occlusion or significant stenosis. Waveforms are normal. Left internal carotid artery: Unremarkable. No occlusion or significant stenosis. Waveforms are normal. Left ICA/CCA ratio: Within normal limits. Left external carotid artery: No stenosis in the origin. Left vertebral artery: Unremarkable. Antegrade flow. US/CV carotid duplex BI* [id number] IMPRESSION: Mild carotid arterial stenosis. REFERENCES: SRU CRITERIA. The degree of internal carotid artery stenosis is based on criteria defined by the Society of Radiologists in Ultrasound (SRU). Normal is no stenosis. Mild is less than 50% stenosis. Moderate is 50-69% stenosis. Severe is greater than 69% stenosis to near occlusion. Near occlusion is a markedly narrowed lumen. Total occlusion is no detectable patent lumen.
[2024-04-16 07:01] LABS: Alanine Aminotransferase 10 U/L (0-33); Albumin Level 3.7 g/dL (3.5-5.2); Alkaline Phosphatase 119 U/L (35-105); Anion Gap 12.9 (5-19); Aspartate Amino Transferase 16 U/L (0-32); Blood Urea Nitrogen 14 mg/dL (8-23); Calcium 8.9 mg/dL (8.5-10.5); Carbon Dioxide 28 mmol/L (22-29); Chloride 105 mmol/L (98-107); Creatinine Clr Calc Pharmacy 91.2555; Globulin 2.9 g/dL (1.3-4.6); Glomerular Filtration Rate 100.3 mL/min (90-130); Glucose 120 mg/dL (65-115); Osmolality Calculated 296 mOsm/kg (285-295); Potassium 3.9 mmol/L (3.5-5.1); Sodium 142 mmol/L (136-145); Total Bilirubin 0.6 mg/dL (0.15-1.2); Total Protein 6.6 g/dL (6.6-8.7)
[2024-04-16] MEDS: duloxetine 30 mg Capsule 60 MG PO (10:11)
[2024-04-16] MEDS: ropinirole 0.25 mg Tablet 0.5 MG PO ×2 (10:11→16:59)
[2024-04-16] MEDS: aspirin 81 mg EC Tablet PO (10:11)
[2024-04-16] MEDS: lisinopril 10 mg Tablet PO (10:11)
[2024-04-16] MEDS: propranolol 40 mg Tablet PO ×2 (10:11→16:59)
[2024-04-16] MEDS: oxybutynin 5 mg Tablet PO (10:11)
[2024-04-16] MEDS: enoxaparin 40 mg/0.4 mL Syringe SUBCUT (10:12)
[2024-04-16] MEDS: flu vacc pf 24-25 (6 mos+) SYRINGE 45 MCG IM (10:21)
[2024-04-16] MEDS: oxyCODONE-APAP 10-325 mg Tablet 1 TAB PO ×2 (14:34→19:54)
--- NOTE | 2024-04-16 15:34 | P.PN_ITS ---
Subjective 2 Subjective: Patient was seen this morning, no fevers overnight, no chills, no nausea, no vomiting, no flank pain Vitals/I&O/Wt Last Vital Signs Temp 98.4 F 04/16/24 12:00 Pulse 88 04/16/24 12:00 Resp 18 04/16/24 14:34 BP 154/90 04/16/24 12:00 Pulse Ox 92 04/16/24 12:00 O2 Del Method Room Air 04/16/24 12:00 04/16/24 04/16/24 04/16/24 06:59 14:59 22:59 Intake Total 50 / 50 Balance 50 / 50 Weight last 48 hrs Weight 110.28 kg Weight 99.79 kg Physical Exam 2 Const: COMMON NORMALS: no acute distress and patient oriented x3 Resp: COMMON NORMALS: normal respiratory effort, No retractions, No use of accessory muscles and clear to auscultation bilaterally AUSCULTATION: clear to auscultation bilaterally Cardio: COMMON NORMALS: regular rate, regular rhythm, S1 normal heart sound present and S2 normal heart sound present RATE: regular rate RHYTHM: r egular rhythm HEART SOUNDS: S1 normal heart sound present and S2 normal heart sound present GI: COMMON NORMALS: Normal to inspection, nondistended, normoactive bowel sounds present and non-tender Extremity: COMMON NORMALS: no pedal edema NARRATIVE EXTREMITY EXAM: AF erythema bilateral shins, significantly improved Neuro: COMMON NORMALS: patient oriented x3 Psych: COMMON NORMALS: mental status grossly normal Data 04/16/24 05:33 04/16/24 05:33 Micro: Microbiology 04/15/24 14:05 Blood Culture - Preliminary Blood NEGATIVE TO DATE 04/15/24 14:03 Blood Culture - Preliminary Blood NEGATIVE TO DATE A&P Assessment and plan (1) Altered mental status: (2) UTI (urinary tract infection): (3) Cellulitis: (4) Pain in both lower extremities: Plan Altered mental status ? Potentially related to UTI ? No focal neurologic deficits, no facial droop, no slurring words ? No seizure-like symptoms ? Possibly transient global amnesia? As she does not remember the events of yesterday and this morning -For now continue aspirin, statin, telemetry monitoring ? Neurochecks ? NIH stroke scale # Aspiration precautions # Telemetry monitoring # CT head no acute findings ? Carotid artery ultrasound # Cardiac echo -Possible polypharmacy with baclofen, narcotics? Monitor -Of note patient had a similar hospital admission 12/15/2021, concerns for altered mental status related to opiates, mood stabilizers, muscle relaxers Urinary tract infection ? Follow urine cultures ? Cefepime Bilateral lower extremity cellulitis ? Will add Zyvox ? Cefepime Swelling of bilateral extremities ? Given recent surgery, will order venous ultrasound for DVT Bilateral lower extremity bluish hue, -No pain reported to me, no pulselessness, no poikilothermia -Arterial ultrasound -FINDINGS: Right common femoral artery: No occlusion or significant stenosis. Normal waveform. Right superficial femoral artery: No occlusion or significant stenosis. Normal waveform. Right popliteal artery: No occlusion or significant stenosis. Normal waveform. Right calf/foot arteries: No occlusion or significant stenosis in the visualized arteries. Normal waveforms. Dorsalis pedis artery is patent. Left common femoral artery: No occlusion or significant stenosis. Normal waveform. Left superficial femoral artery: No occlusion or significant stenosis. Normal waveform. Left popliteal artery: No occlusion or significant stenosis. Normal waveform. Left calf/foot arteries: No occlusion or significant stenosis in the visualized arteries. Normal waveforms. Dorsalis pedis artery is patent. US/[place] [id number] IMPRESSION: No significant stenosis. -Will monitor Elevated troponins, No complaints of chest pain Full code Lovenox for DVT prophylaxis Plan for today, follow carotid artery ultrasound results, echocardiogram results, PT OT, continue telemetry monitoring continue IV antibiotics plan on discharging on x-ray for 48 hours Attestations 2 Medical Necessity Statement*: Patient requires hospitalization for altered mental status related to UTI, Diagnoses Altered mental status R41.82 UTI (urinary tract infection) N39.0 Cellulitis L03.90 Pain in both lower extremities M79.604; M79.605
--- NOTE | 2024-04-16 18:16 | USCV_ITS ---
Niki Agosto Age: 63 Gender: F : 1960 Exam Date: 04/16/2024 10:58 Ordering Phys: Maurizio Vences MD Technologist: Doug Colon Exam Location: [facility] [place] Indication: ams BP: 131 / 75 HR: 69 Rhythm: Sinus Technical Quality: Adequate MEASUREMENTS (Male / Female) Normal Values 2D ECHO LV Diastolic Diameter PLAX 4.9 cm 4.2 - 5.9 / 3.9 - 5.3 cm IVS Diastolic Thickness 1.0 cm 0.6 - 1.0 / 0.6 - 0.9 cm IVS Systolic Thickness 1.3 cm LVPW Diastolic Thickness 1.4 cm 0.6 - 1.0 / 0.6 - 0.9 cm LVPW Systolic Thickness 1.7 cm LVOT Diameter 3.0 cm LV Ejection Fraction 2D Teich 74.3 % LV Ejection Fraction MOD 4C 68.6 % LV Ejection Fraction MOD 2C 69.3 % LV Ejection Fraction 2C AL 69.9 % LA Diameter 4.3 cm RA Systolic Volume 4C AL 30.2 ml RA Systolic Volume 4C MOD 30.4 ml LA Sys Volume AL 52.8 cm cubed LA Sys Volume Index AL 22.5 cm cubed/m squared IVC Diameter 2.0 cm M-MODE LA Ao Ratio MM 0.9 AV Cusp Separation MM 1.9 cm DOPPLER AV Peak Velocity 195.0 cm/s LVOT Peak Velocity 134.0 cm/s AV Area Cont Eq vti 4.4 cm squared AV Area Cont Eq pk 4.9 cm squared MV Peak Velocity 108.0 cm/s MV Area PHT 3.4 cm squared Mitral E to A Ratio 0.8 TV Peak Velocity 196.0 cm/s TR Peak Velocity 250.0 cm/s TR Peak Gradient 25.0 mmHg TR Mean Velocity 208.0 cm/s TR Mean Gradient 18.2 mmHg TR Velocity Time Integral 68.4 cm PV Peak Velocity 104.0 cm/s RV Ejection Time 0.3 s FINDINGS Left Ventricle Normal left ventricular size, systolic function and wall thickness, with no regional wall motion abnormalities. Estimated LVEF normal 65%. Right Ventricle Normal right ventricular size and systolic function. Right Atrium Normal right atrial size. Left Atrium Normal left atrial size. Mitral Valve Mildly thickened mitral valve. Trace mitral valve regurgitation. Aortic Valve Mildly thickened aortic valve. No aortic valve stenosis. Trace valve regurgitation. Tricuspid Valve Structurally normal tricuspid valve. Trace tricuspid valve regurgitation. Normal tricuspid valve gradient 25 mmHg. Pulmonic Valve Pulmonic valve not well visualized. Trace pulmonary valve regurgitation. Pericardium No pericardial effusion. Aorta Normal size aortic root and proximal ascending aorta. IVC Normal inferior vena cava. CONCLUSIONS Normal left ventricle systolic function. Normal LVEF of 65%. Normal chamber sizes. Normal right ventricle size and systolic function. No significant valvular abnormality noted. Normal right heart and pulmonary artery systolic pressure. Delmy Madison MD (Electronically Signed) Final Date: 16 April 2024 14:00 S
--- NOTE | 2024-04-16 18:16 | USR_ITS ---
PROCEDURE INFORMATION: Exam: US Duplex Lower Extremity Veins, Bilateral Exam date and time: 04/16/2024 10:05 AM Age: 63 years old Clinical indication: Edema, localized; Lower extremity, bilateral; Additional info: Swelling TECHNIQUE: Imaging protocol: Real-time duplex ultrasound of the bilateral extremities with 2-D simmons scale, color Doppler flow and spectral waveform analysis including responses to compression and other maneuvers (when performed) with image documentation. Complete exam focused on the lower extremity veins. COMPARISON: US CV arterial duplex [facility] [id number] 04/15/2024 3:04 PM FINDINGS: Right deep veins: Unremarkable. The common femoral, femoral, proximal profunda femoral and popliteal veins are patent without thrombus. Normal Doppler waveforms. Normal compressibility and/or augmentation response. Left deep veins: Unremarkable. The common femoral, femoral, proximal profunda femoral and popliteal veins are patent without thrombus. Normal Doppler waveforms. Normal compressibility and/or augmentation response. Superficial veins: Greater saphenous veins at the saphenofemoral junctions are patent bilaterally without thrombus. Soft tissues: Unremarkable. US/CV venous duplex [facility] [id number] IMPRESSION: No evidence of deep vein thrombosis.
[2024-04-16] MEDS: baclofen 10 mg Tablet 20 MG PO (19:57)
[2024-04-16] MEDS: atorvastatin 40 mg Tablet PO (20:00)
[2024-04-16] MEDS: oxybutynin 5 mg Tablet 10 MG PO (20:00)
[2024-04-17] VITALS (10 sets, daily range): BP systolic 127–157; BP diastolic 81–87; PULSE 63–78; RESP 15–20; TEMP 36.4–36.8; O2SAT 93–96
[2024-04-17] MEDS: oxyCODONE-APAP 10-325 mg Tablet 1 TAB PO ×3 (00:38→11:01)
[2024-04-17] MEDS: cefepime 1,000 MG in sodium chloride 0.9% (plus) 50 ML 100 MG IV (03:13)
[2024-04-17 04:38] LABS: Basophils # 0.1 10^3/uL (0.0-0.1); Basophils % 1.1 %; Eosinophils # 0.3 10^3/uL (0.0-0.8); Hematocrit 40.6 % (36-47); Lymphocytes # 1.7 10^3/uL (0.8-4.8); Lymphocytes % 27.3 %; Mean Corpuscular HGB Conc 30.3 g/dL (30-55); Mean Corpuscular Hemoglobin 29.4 pg (27-33); Mean Corpuscular Volume 96.9 fl (85-98); Mean Platelet Volume 9.6 fL (7.4-10.4); Monocytes # 0.5 10^3/uL (0.2-0.9); Monocytes % 8.4 %; Neutrophils # 3.64 10^3/uL (1.8-7.7); Neutrophils % 58.7 %; Nucleated Red Blood Cells % 0 %; Platelet Count 186 10^3/cmm (157-399); Red Blood Count 4.19 10^6/uL (3.85-5.65); Red Cell Distribution Width 15.7 % (12.1-15.1)
[2024-04-17 04:58] LABS: Alanine Aminotransferase 11 U/L (0-33); Albumin Level 3.9 g/dL (3.5-5.2); Alkaline Phosphatase 118 U/L (35-105); Anion Gap 14.3 (5-19); Aspartate Amino Transferase 16 U/L (0-32); Blood Urea Nitrogen 11 mg/dL (8-23); Calcium 8.7 mg/dL (8.5-10.5); Carbon Dioxide 29 mmol/L (22-29); Chloride 104 mmol/L (98-107); Creatinine Clr Calc Pharmacy 91.5915; Glucose 113 mg/dL (65-115); Osmolality Calculated 296 mOsm/kg (285-295); Potassium 4.3 mmol/L (3.5-5.1); Sodium 143 mmol/L (136-145); Total Bilirubin 0.5 mg/dL (0.15-1.2); Total Protein 6.9 g/dL (6.6-8.7)
[2024-04-17] MEDS: linezolid premix 600 MG/300 ML PREMIX 300 MG IV (06:01)
[2024-04-17] MEDS: pantoprazole 40 mg SDV IVP (06:02)
[2024-04-17] MEDS: sucralfate 1 gm/10 mL Oral Liq UDC PO ×2 (06:02→11:01)
[2024-04-17] MEDS: levothyroxine 50 mcg Tablet PO (06:03)
--- NOTE | 2024-04-17 09:15 | P.DS_ITS ---
Discharge Providers Date of Admission: 04/15/24 16:25 Date of Discharge: April 17, 2024 Attending Provider at Admission: Yu Fonseca MD Attending Provider at Discharge: Maurizio Vences MD Primary Care Provider: Charity Salazar MD Diagnoses at Discharge Discharge Diagnosis (1) Altered mental status: Status: Acute (2) UTI (urinary tract infection): Status: Resolved (3) Cellulitis: Status: Acute (4) Pain in both lower extremities: Status: Acute Reason for Visit Reason for Visit: confusion, fall Hospital Course Hospital Course Niki Agosto is a 63 year old female with a past medical history of chronic back pain status post surgery recent history of hospitalization for left hip fracture test for surgery, chronic pain, on hydrocodone, baclofen, no history of strokes, no history of diabetes, no history of COPD, who presents [facility] for confusion. Patient tells me that she lives at home by herself, she is alert to person, to place, to time she follows commands, no focal weakness no slurring of words, no focal paresthesias, she her only complaint right now is severe back pain she cannot tolerate the gurney that she is in due to severe back pain. 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 She tells me that she is quite hazy on the events of yesterday, she must of friend her dog she tells me, as he always asks for food, but she does not remember what she had for breakfast this morning, the reason she came to the hospital was that she was kind of hazy, no seizure-like episodes reported no facial droop no slurring words no word finding difficulty no focal weakness no falls no injuries. Denies any flank pain, no abdominal pain, no nausea, no vomiting. She does report that her bilateral lower extremities are a little bit more red erythematous, warm, her friend was reporting that to her a few days ago. She did report to the ER provider pain in her legs, but currently denies any pain currently. Her daughter was trying to reach her today, but was able to reach her, so she had a long [place], to her home for a wellness check. Patient presented to [facility] for altered mental status likely sec to UTI, received broad-spectrum antibiotic therapy overall clinically improved no recurrent episodes of confusion, discharged on cefdinir For her bilateral extremity cellulitis, managed on IV antibiotics, discharged on p.o. Zyvox Swelling of bilateral extremities, venous ultrasound negative for DVT, received Lasix Bilateral lower extremity bluish hue, -No pain reported to me, no pulselessness, no poikilothermia -Arterial ultrasound -FINDINGS: Right common femoral artery: No occlusion or significant stenosis. Normal waveform. Right superficial femoral artery: No occlusion or significant stenosis. Normal waveform. Right popliteal artery: No occlusion or significant stenosis. Normal waveform. Right calf/foot arteries: No occlusion or significant stenosis in the visualized arteries. Normal waveforms. Dorsalis pedis artery is patent. Left common femoral artery: No occlusion or significant stenosis. Normal waveform. Left superficial femoral artery: No occlusion or significant stenosis. Normal waveform. Left popliteal artery: No occlusion or significant stenosis. Normal waveform. Left calf/foot arteries: No occlusion or significant stenosis in the visualized arteries. Normal waveforms. Dorsalis pedis artery [place]. US/[place] [id number] IMPRESSION: No significant stenosis. -Will monitor -Likely related to Raynaud's Terms of patient's altered mental status, no focal neurologic deficits, no slurring of words, the question is that was just a transient global amnesia?, I think fairly unlikely however I discharged on aspirin, statin with close follow- up with primary care provider as outpatient. If patient were to have any recurrent strokelike symptoms or confusion please go to the emergency room. There was also concern for polypharmacy as a etiology advised her to use narcotics sparingly. CT head no acute findings. Carotid artery ultrasound mild carotid artery stenosis. Cardiac echo no acute findings. Physical Exam Const: COMMON NORMALS: no acute distress and patient oriented x3 Resp: COMMON NORMALS: normal respiratory effort, No retractions, No use of accessory muscles and clear to auscultation bilaterally AUSCULTATION: clear to auscultation bilaterally Cardio: COMMON NORMALS: regular rate, regular rhythm, S1 normal heart sound present and S2 normal heart sound present RATE: regular rate RHYTHM: regular rhythm HEART SOUNDS: S1 normal heart sound present and S2 normal heart sound present GI: COMMON NORMALS: Normal to inspection, nondistended, normoactive bowel sounds present and non-tender Extremity: COMMON NORMALS: no pedal edema Neuro: COMMON NORMALS: patient oriented x3 Psych: COMMON NORMALS: mental status grossly normal Discharge Data Studies Completed and Pending Completed Studies During Hospitalization Category Date Time Status CT cervical spin wo con* [id number] Stat Cat Scan 04/15/24 14:[address] head wo con* [id number] Stat Cat Scan 04/15/24 13:04 Completed XR chest 1V portable [id number] Stat Exams 04/15/24 13:04 Completed CV carotid duplex BI* [id number] Routine Ultrasound 04/16/24 06:49 [place] [id number] Routine Ultrasound 04/16/24 18:16 Completed CV. echo complete* [id number] Routine Ultrasound 04/16/24 18:16 Completed US arterial duplex lower extremity bilat [CV arterial Ultrasound 04/15/24 14:04 [place] [id number]] Stat Pending at discharge Category Date Time Status Blood Culture Stat Lab 04/15/24 14:05 Results Complete Blood Count w/Auto AM LABS Lab 04/18/24 04:00 Ordered Comprehensive Metabolic Panel AM LABS Lab 04/18/24 04:00 Ordered Radiology Impressions Chest X-Ray 04/15/24 13:04 IMPRESSION: No acute cardiopulmonary process. Head CT 04/15/24 13:04 IMPRESSION: No large territorial infarct or intracranial bleed. Duplex Scan Lower Extremity Artery 04/15/24 14:04 IMPRESSION: No significant stenosis. Cervical Spine CT 04/15/24 14:12 IMPRESSION: No acute posttraumatic changes in the cervical spine. Carotid Doppler Study 04/16/24 06:49 IMPRESSION: Mild carotid arterial stenosis. REFERENCES: SRU CRITERIA. The degree of internal carotid artery stenosis is based on criteria defined by the Society of Radiologists in Ultrasound (SRU). Normal is no stenosis. Mild is less than 50% stenosis. Moderate is 50-69% stenosis. Severe is greater than 69% stenosis to near occlusion. Near occlusion is a markedly narrowed lumen. Total occlusion is no detectable patent lumen. Venous Duplex 04/16/24 18:16 IMPRESSION: No evidence of deep vein thrombosis. Laboratory Results WBC 6.20 10^3/uL (3.29-11.43) 04/17/24 04:12 RBC 4.19 10^6/uL (3.85-5.65) 04/17/24 04:12 Hgb 12.30 g/dL (11.27-16.99) 04/17/24 04:12 Hct 40.6 % (36-47) 04/17/24 04:12 MCV 96.9 fl (85-98) 04/17/24 04:12 MCH 29.4 pg (27-33) 04/17/24 04:12 MCHC 30.3 g/dL (30-55) 04/17/24 04:12 RDW 15.7 % (12.1-15.1) H 04/17/24 04:12 Plt Count 186 10^3/cmm (157-399) 04/17/24 04:12 MPV 9.6 fL (7.4-10.4) 04/17/24 04:12 Neut % (Auto) 58.7 % 04/17/24 04:12 Lymph % (Auto) 27.3 % 04/17/24 04:12 [place] % (Auto) 8.4 % 04/17/24 04:12 Eos % (Auto) 4.0 % 04/17/24 04:12 Baso % (Auto) 1.1 % 04/17/24 04:12 Neut # (Auto) 3.64 10^3/uL (1.8-7.7) 04/17/24 04:12 Lymph # (Auto) 1.7 10^3/uL (0.8-4.8) 04/17/24 04:12 [place] # (Auto) 0.5 10^3/uL (0.2-0.9) 04/17/24 04:12 Eos # (Auto) 0.3 10^3/uL (0.0-0.8) 04/17/24 04:12 Baso # (Auto) 0.1 10^3/uL (0.0-0.1) 04/17/24 04:12 Nucleated RBC % (auto) 0 % 04/17/24 04:12 Nucleated RBCs # 0.0 /100WBC 04/17/24 04:12 ESR 10 mm/hr (0-15) 04/15/24 13:15 PT 14.20 SECONDS (12.1-14.9) 04/15/24 14:05 INR 1.07 (0.8-1.2) 04/15/24 14:05 Sodium 143 mmol/L (136-145) 04/17/24 04:12 Potassium 4.3 mmol/L (3.5-5.1) 04/17/24 04:12 Chloride 104 mmol/L (98-107) 04/17/24 04:12 Carbon Dioxide 29 mmol/L (22-29) 04/17/24 04:12 Anion Gap 14.3 (5-19) 04/17/24 04:12 BUN 11 mg/dL (8-23) 04/17/24 04:12 Creatinine 0.7 mg/dL (0.5-0.9) 04/17/24 04:12 GFR Calculation 84.0 mL/min (90-130) L 04/17/24 04:12 Glucose 113 mg/dL (65-115) 04/17/24 04:12 Estimat Average Glucose 131 04/15/24 13:15 Hemoglobin A1c 6.2 % (4.0-6.0) H 04/15/24 13:15 Calculated Osmolality 296 mOsm/kg (285-295) H 04/17/24 04:12 Lactic Acid 1.2 mmol/L (0.5-2.2) 04/15/24 13:15 Calcium 8.7 mg/dL (8.5-10.5) 04/17/24 04:12 Total Bilirubin 0.5 mg/dL (0.15-1.2) 04/17/24 04:12 AST 16 U/L (0-32) 04/17/24 04:12 ALT 11 U/L (0-33) 04/17/24 04:12 Alkaline Phosphatase 118 U/L (35-105) H 04/17/24 04:12 Troponin T Baseline 24 ng/L (0-10) H 04/15/24 14:03 Troponin T 120 Minute 22.84 ng/L (0-10) H 04/15/24 16:16 Delta Troponin T -1.16 ABS# (0-10) L 04/15/24 16:16 Troponin T Hi Sens 6Hr 22.36 ng/L (0-10) H 04/15/24 19:23 Troponin T Hi Sens 6Hr Delta -1.64 ng/L (0-12) L 04/15/24 19:23 C-Reactive Protein 4.9 mg/L (0.0-4.9) 04/15/24 16:16 NT-Pro-B Natriuret Pep 323 pg/mL (0-125) H 04/15/24 13:15 Total Protein 6.9 g/dL (6.6-8.7) 04/17/24 04:12 Albumin 3.9 g/dL (3.5-5.2) 04/17/24 04:12 Globulin 3.0 g/dL (1.3-4.6) 04/17/24 04:12 Triglycerides 124 mg/dL (0-150) 04/15/24 16:16 Cholesterol 211 mg/dL (0-200) H 04/15/24 16:16 LDL Cholesterol, Calc 98 mg/dL (50-129) 04/15/24 16:16 HDL Cholesterol 88 mg/dL (60-100) 04/15/24 16:16 LDL/HDL Ratio 1.11 RATIO (0.00-3.22) 04/15/24 16:16 Cholesterol/HDL Ratio 2.40 mg/dL (0.0-4.40) 04/15/24 16:16 Procalcitonin 0.05 ng/mL (0-0.5) 04/15/24 16:16 TSH 0.96 uIU/mL (0.27-4.20) 04/15/24 16:16 Urine Color Yellow (Yellow) 04/15/24 14:23 Urine Appearance Clear (CLEAR) 04/15/24 14:23 Urine pH 5.5 (5-7) 04/15/24 14:23 Ur Specific [place] 1.018 (1.005-1.030) 04/15/24 14:23 Urine Protein Negative (Negative) 04/15/24 14:23 Urine Glucose (UA) Negative (Normal) 04/15/24 14:23 Urine Ketones Trace (Negative) 04/15/24 14:23 Urine Blood Negative (Negative) 04/15/24 14:23 Urine Nitrate Negative (Negative) 04/15/24 14:23 Urine Bilirubin Negative (Negative) 04/15/24 14:23 Urine Urobilinogen 1.0 mg/dL (Negative) 04/15/24 14:23 Ur Leukocyte Esterase Trace (Negative) A 04/15/24 14:23 Urine RBC 0-2 /hpf (0-2) 04/15/24 14:23 Urine WBC 5-10 /hpf (0-5) H 04/15/24 14:23 Ur Squamous Epith Cells 6-10 /hpf (0-5) 04/15/24 14:23 Calcium Oxalate Crystal 5-10 /hpf H 04/15/24 14:23 Amorphous Sediment Not Reportable 04/15/24 14:23 Urine Bacteria 1+ /hpf (NONE) H 04/15/24 14:23 Hyaline Casts 24.82 /lpf 04/15/24 14:23 Urine Mucus 1+ /hpf 04/15/24 14:23 Urine Opiates Screen Positive ng/mL (Negative) H 04/15/24 14:23 Ur Barbiturates Screen Negative ng/mL (Negative) 04/15/24 14:23 Ur Phencyclidine Scrn Negative ng/mL (Negative) 04/15/24 14:23 Ur Amphetamines Screen Negative ng/mL (Negative) 04/15/24 14:23 U Benzodiazepines Scrn Negative ng/mL (Negative) 04/15/24 14:23 Urine Cocaine Screen Negative ng/mL (Negative) 04/15/24 14:23 U Marijuana (THC) Screen Negative ng/mL (Negative) 04/15/24 14:23 Ethyl Alcohol < 10 mg/dL (0-10) 04/15/24 16:16 Coronavirus (PCR) Negative (Negative) 04/15/24 13:33 Influenza A (PCR) Negative (Negative) 04/15/24 13:33 Influenza Type B (PCR) Negative (Negative) 04/15/24 13:33 RSV (PCR) Negative (Negative) 04/15/24 13:33 Vitals Last Vital Signs Temp 97.6 F 04/17/24 07:00 Pulse 70 04/17/24 07:00 Resp 16 04/17/24 07:00 BP 157/87 04/17/24 07:00 Pulse Ox 95 04/17/24 07:00 O2 Del Method Room Air 04/17/24 07:00 Discharge Plan Discharge Patient Disposition: Home Condition: Stable Prescriptions: New atorvastatin 40 mg Tablet 40 mg PO BEDTIME 30 Days Qty: 30 0RF aspirin 81 mg Tablet,Delayed Release (Dr/Ec) 81 mg PO DAILY 30 Days Qty: 30 0RF cefdinir 300 mg capsule 300 mg PO BID 5 Days Qty: 10 0RF linezolid [Zyvox] 600 mg tablet 600 mg PO BID 5 Days Qty: 10 0RF Continued oxybutynin chloride 5 mg tablet See Rx Instructions .ROUTE .COMPLEX Rx Instructions: Take 5 mg orally in morning and 10mg at bedtime. baclofen 20 mg tablet 20 mg PO QID PRN (Reason: spasms) 30 Days Qty: 120 1RF levothyroxine 50 mcg capsule 50 mcg PO QAM duloxetine [Cymbalta] 30 mg capsule,delayed release(DR/EC) 60 mg PO DAILY omeprazole 40 mg capsule,delayed release(DR/EC) 40 mg PO DAILY propranolol 40 mg tablet 40 mg PO BID ropinirole 0.5 mg tablet See Rx Instructions .ROUTE .COMPLEX Rx Instructions: 0.25mg qd, 0.5mg qhs docusate sodium 100 mg Capsule 100 mg PO BID Qty: 14 0RF alendronate 70 mg tablet See Rx Instructions .ROUTE .COMPLEX Rx Instructions: 70 mg orally by mouth every week oxycodone-acetaminophen 10-325 mg tablet 1 tab PO Q6H MDD 4 PRN (Reason: Pain) cyanocobalamin (vitamin B-12) 1,000 mcg/mL solution See Rx Instructions .ROUTE .COMPLEX Rx Instructions: 1,000 mcg intramuscularly ;INJECT 1ML INTRAMUSCULARLY every week FOR FOUR WEEKS THEN ONCE MONTHLY nystatin 100,000 unit/gram cream 1 applic TOPICAL TID lisinopril 10 mg tablet 10 mg PO DAILY albuterol sulfate 90 mcg/actuation HFA aerosol inhaler 2 puff INHALATION Q4H PRN (Reason: Wheezing) Held sumatriptan succinate 100 mg tablet 100 mg PO DAILY PRN (Reason: Migraine Headache) Hold Instructions: Resume on 04/24/24. Discontinued celecoxib 200 mg capsule 200 mg PO BID Discharge Orders: Discharge Order (Routine); Ordered 04/17/24 Ordered By: Maurizio Vences Referrals: Charity Salazar MD [Primary Care Provider] - 1-3 days Discharge Diet: Cardiac Discharge Activity: Resume usual activity Patient Instructions: Opioid Safety Activity Restrictions/Additional Instructions: - Please take aspirin, statin as prescribed if you have any strokelike symptoms call 911 ? Take antibiotics as prescribed cefdinir for UTI, Zyvox for your cellulitis -Please see your primary care provider in 1 week -Please hold Imitrex for the next week as you cannot use it with Zyvox Discharge Attestations Time Spent in Discharge Care*: greater than 30 min Quality Metrics Clinical Quality Measures [ No reported AMI, CVA or VTE this stay] Coding Level of Care Code 53438 Total time (in minutes) for Discharge: 45 Diagnoses Altered mental status R41.82 UTI (urinary tract infection) N39.0 Cellulitis L03.90 Pain in both lower extremities M79.604; M79.605
[2024-04-17] MEDS: FUROsemide 10 mg/mL SDV 4mL 40 MG IVP (09:29)
[2024-04-17] MEDS: aspirin 81 mg EC Tablet PO (09:29)
[2024-04-17] MEDS: lisinopril 10 mg Tablet PO (09:30)
[2024-04-17] MEDS: enoxaparin 40 mg/0.4 mL Syringe SUBCUT (09:30)
[2024-04-17] MEDS: propranolol 40 mg Tablet PO (09:30)
[2024-04-17] MEDS: oxybutynin 5 mg Tablet PO (09:30)
[2024-04-17] MEDS: duloxetine 30 mg Capsule 60 MG PO (09:30)
[2024-04-17] MEDS: ropinirole 0.25 mg Tablet 0.5 MG PO (09:30)
--- NOTE | 2024-04-17 10:08 | PC.NURSE ---
Rejected Items Clerk called primary care office patient has an appointment scheduled on May 08. spoke to Dr Vences in person and he said that would be ok but if they get a cancellation would be great if they could get patient in. Florencia dock or pier laborer for [facility] said that if they get a cancellation she will give patient a call.
--- NOTE | 2024-04-17 10:08 | PC.CHAP ---
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 biometrics experimentalist visit [] Patient/Family/Request visit [] Outpatient visit [] Follow-up visit [] Physician referral [] Code/Alert [x] Routine visit [] Staff referral [] Actively dying [] Patient sleeping [] Family support [] [] Out of room [] Palliative care [] [x] Receiving care in room [] Pre-surgical visit [] Trauma [] Long length of stay [] ICU visit [] Other: Relational/Emotional Strength [] Patient feels connected with others/family/visitors/staff [] Distress [] Loneliness/isolation [] Abandonment Spirituality of Patient [] Person of Dayanna [] Attends Pentecostalism of their Dayanna [] Believes in Prayer [] Reads Bible or Shinto materials [] There are Spiritual issues to be addressed Dining Car Hop Interventions [x] Prayer [] Active listening [] Non-anxious presence [] Spiritual/emotional support [] Crisis/trauma care [] Spiritual counseling [] Bereavement support [] Provided bereavement packet [] Provided Bible/devotional materials [] Provided toy/stuffed animal, coloring book to patient or family member [] Provided Communion [] Anointing/[place] [] Salvation [] Completed spiritual assessment [] Other: Impact on Illness or Injury [] Angry [] Fearful [] Anxious [] Often cries [] Exhaustion [] Unable to work [] Unable to attend rastafarian [] Unable to walk/stand [] Unable to read [] Unable to drive [] Unable to eat/drink [] Unable to sleep [] Unable to be with family [] Patient intubated [] Other: Summary Time spent with patient
--- NOTE | 2024-04-17 10:08 | PC.CHAP ---
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 medical numerical control operator visit [] Patient/Family/Request visit [] Outpatient visit [] Follow-up visit [] Physician referral [] Code/Alert [x] Routine visit [] Staff referral [] Actively dying [] Patient sleeping [] Family support [] [] Out of room [] Palliative care [] [] Receiving care in room [] Pre-surgical visit [] Trauma [] Long length of stay [] ICU visit [] Other: Relational/Emotional Strength [] Patient feels connected with others/family/visitors/staff [] Distress [] Loneliness/isolation [] Abandonment Spirituality of Patient [x] Person of Dayanna [] Attends Denominational of their Dayanna [x] Believes in Prayer [] Reads Bible or Jewish materials [] There are Spiritual issues to be addressed Agricultural Engineering Technician Interventions [x] Prayer [x] Active listening [] Non-anxious presence [] Spiritual/emotional support [] Crisis/trauma care [] Spiritual counseling [] Bereavement support [] Provided bereavement packet [x Provided Bible/devotional materials [] Provided toy/stuffed animal, coloring book to patient or family member [] Provided Communion [] Anointing/[place] [] Salvation [x] Completed spiritual assessment [] Other: Impact on Illness or Injury [] Angry [] Fearful [] Anxious [] Often cries [] Exhaustion [] Unable to work [] Unable to attend taoism [] Unable to walk/stand [] Unable to read [] Unable to drive [] Unable to eat/drink [] Unable to sleep [] Unable to be with family [] Patient intubated [] Other: Summary Time spent with patient 5 min
--- NOTE | 2024-04-17 12:46 | PC.SOCIAL ---
Spoke with patient immediately after heart to heart rounds and updated her about outpatient PT order. She verbalized understanding. She stated that she had already called for her ride home. Updated LISS James that patient was ready for d/c as far as CM needs and had already called for her ride home.
== END 2024-04-17 14:20 | disposition home or self-care (01) ==
LOC: ER 13:19 → MEDSURG 17:54
PROVIDERS: Admitting Provider Student in an Organized Health Care Education/Training Program; Emergency Provider Family Medicine; PCP Internal Medicine; Visit Provider Family Medicine
DX: N39.0 Urinary tract infection, site not specified (principal); L03.90 Cellulitis, unspecified; M79.604 Pain in right leg; M79.605 Pain in left leg; G89.29 Other chronic pain; Z79.891 Long term (current) use of opiate analgesic; R60.0 Localized edema; R07.89 Other chest pain
CPT/HCPCS: 0241U; 36415; 70450; 71045; 72125; 80053; 80061; 80306; 80307; 81001; 83036; 83605; 83880; 84145; 84443; 84484; 85025; 85610; 85651; 86140; 87040; 90471; 90686; 93005; 93306; 93880; 93925; 93970; 94664; 96372; 96374; 96375; 97161; 99285; G0378; J0692; J0696; J1650; J1940; J2020; J2470

== ENCOUNTER 2024-04-30 16:35 | Emergency (ER) | payer MEDICARE, MEDICAID, SELFPAY ==
[2024-04-30 16:40] VITALS: BP 138/88; PULSE 100; RESP 18; TEMP 36.6; O2SAT 98
[2024-04-30 18:09] LABS: Basophils # 0.1 10^3/uL (0.0-0.1); Basophils % 0.8 %; Eosinophils # 0.1 10^3/uL (0.0-0.8); Eosinophils % 1.1 %; Hematocrit 39.4 % (36-47); Lymphocytes # 1.1 10^3/uL (0.8-4.8); Lymphocytes % 17.3 %; Mean Corpuscular HGB Conc 32.2 g/dL (30-55); Mean Corpuscular Hemoglobin 29.7 pg (27-33); Mean Corpuscular Volume 92.3 fl (85-98); Mean Platelet Volume 9.8 fL (7.4-10.4); Monocytes # 0.5 10^3/uL (0.2-0.9); Monocytes % 7.1 %; Neutrophils # 4.73 10^3/uL (1.8-7.7); Neutrophils % 73.2 %; Nucleated Red Blood Cells % 0 %; Platelet Count 230 10^3/cmm (157-399); Red Blood Count 4.27 10^6/uL (3.85-5.65); Red Cell Distribution Width 14.7 % (12.1-15.1); White Blood Count 6.46 10^3/uL (3.29-11.43)
[2024-04-30] MEDS: ondansetron 2 mg/ML SDV 2 mL 4 MG IVP (18:11)
[2024-04-30 18:12] VITALS: RESP 18; O2SAT 98
[2024-04-30] MEDS: morphine 4 mg/mL SDV 1 mL IVP (18:12)
[2024-04-30 18:18] VITALS: BP 153/86; PULSE 94; RESP 16; O2SAT 91
[2024-04-30 18:29] LABS: Alanine Aminotransferase 16 U/L (0-33); Albumin Level 4.2 g/dL (3.5-5.2); Alkaline Phosphatase 144 U/L (35-105); Anion Gap 18.9 (5-19); Aspartate Amino Transferase 25 U/L (0-32); Blood Urea Nitrogen 17 mg/dL (8-23); Calcium 9.7 mg/dL (8.5-10.5); Carbon Dioxide 24 mmol/L (22-29); Chloride 104 mmol/L (98-107); Creatinine Clr Calc Pharmacy 86.6115; Globulin 3.8 g/dL (1.3-4.6); Glomerular Filtration Rate 100.3 mL/min (90-130); Glucose 117 mg/dL (65-115); Osmolality Calculated 299 mOsm/kg (285-295); Potassium 3.9 mmol/L (3.5-5.1); Sodium 143 mmol/L (136-145); Total Bilirubin 0.9 mg/dL (0.15-1.2)
[2024-04-30 18:30] LABS: Lactic Sepsis W/Reflex 1.1 mmol/L (0.5-2.2)
[2024-04-30 19:07] LABS: Bilirubin Urine Negative (Negative); Blood Urine Negative (Negative); Glucose Urine UA Negative (Normal); Ketones Urine 2+ (Negative); Leukocyte Esterase Urine Trace (Negative); Nitrate Urine Negative (Negative); Protein Urine Trace (Negative); Specific Gravity, Urine 1.017 (1.005-1.030); Urine Appearance Clear (CLEAR); Urine Color Yellow (Yellow); pH Urine 5.5 (5-7)
[2024-04-30 19:12] LABS: Add Urine Microscopic? YES; Bacteria Urine None Seen /hpf; Hyaline Casts Urine 2.46 /lpf; RBC Urine 0-2 /hpf (0-2); Squamous Epithelial Cell Urine 0-5 /hpf (0-5); WBC Urine 0-5 /hpf (0-5)
[2024-04-30] MEDS: morphine 4 mg/mL SDV 1 mL 2 MG IVP (19:37)
[2024-04-30 19:50] VITALS: BP 122/80; PULSE 99; RESP 16; O2SAT 100
--- NOTE | 2024-04-30 20:06 | W.ED.AMS ---
HPI - Altered Mental Status General: Chief Complaint: Altered Mental Status Stated Complaint: SOB, back and leg pain/redness Time Seen by Provider: 04/30/24 17:21 History of Present Illness: This patient is a 63-year-old white female who presents to the emergency department complaining of pain in her feet and legs as well as her low back. Patient states she was in the hospital a week ago for similar symptoms but at that time she had a urinary tract infection. She does have chronic back pain. Related Data Home Medications Medication Instructions Recorded Confirmed levothyroxine 50 mcg capsule 50 mcg PO QAM 07/04/19 04/15/24 duloxetine 30 mg capsule,delayed 60 mg PO DAILY 09/10/20 04/15/24 release (Cymbalta) oxybutynin chloride 5 mg tablet See Rx Instructions .Route .COMPLEX 05/23/21 04/15/24 omeprazole 40 mg capsule,delayed 40 mg PO DAILY 07/26/23 04/15/24 release propranolol 40 mg tablet 40 mg PO BID 07/26/23 04/15/24 ropinirole 0.5 mg tablet See Rx Instructions .Route .COMPLEX 07/26/23 04/15/24 sumatriptan succinate 100 mg tablet 100 mg PO DAILY PRN Migraine 08/23/23 04/15/24 Headache albuterol sulfate 90 mcg/actuation 2 puff inhalation Q4H PRN Wheezing 04/15/24 04/15/24 aerosol inhaler alendronate 70 mg tablet See Rx Instructions .Route .COMPLEX 04/15/24 04/15/24 cyanocobalamin (vitamin B-12) See Rx Instructions .Route .COMPLEX 04/15/24 04/15/24 1,000 mcg/mL injection solution lisinopril 10 mg tablet 10 mg PO DAILY 04/15/24 04/15/24 nystatin 100,000 unit/gram topical 1 applic topical TID 04/15/24 04/15/24 cream oxycodone-acetaminophen 10 mg-325 1 tab PO Q6H PRN Pain 04/15/24 04/15/24 mg tablet Previous Rx's Medication Instructions Recorded baclofen 20 mg tablet 20 mg PO QID PRN spasms 30 days 05/30/20 #120 tabs docusate sodium 100 mg capsule 100 mg PO BID #14 caps 10/20/23 aspirin 81 mg tablet,delayed 81 mg PO DAILY 30 days #30 tabs 04/17/24 release atorvastatin 40 mg tablet 40 mg PO BEDTIME 30 days #30 tabs 04/17/24 Allergies Allergy/AdvReac Type Severity Reaction Status Date / Time Penicillins Allergy RASH Verified 04/30/24 16:45 Sulfa (Sulfonamide Allergy ANAPHYLAXIS Verified 04/30/24 16:45 Antibiotics) Review of Systems General: Reports: 10 or more systems reviewed and unremarkable except in HPI and below Musc: Reports: back pain and other (Bilateral foot and leg pain.) PFSH ED PFSH: Medical History At risk for polypharmacy Altered mental status Chronic hypertension Diagnosed at the age of 14 and controlled on medication managed by primary care provider. Anxiety and depression Currently on Cymbalta managed by her primary care provider. Hypothyroid Currently on levothyroxine managed by PMD No pertinent past medical history Denies: hypertension, diabetes, heart, lung, liver, kidney, thyroid, genital herpes, bleeding problems, or clotting problems. her primary care provider is Dr. Salazar Chronic low back pain without sciatica Currently on hydrocodone and baclofen managed by the pain clinic Surgical History History of back surgery 10/2020---jef placed in back S/P breast biopsy 2000-left breast-benign History of dental surgery tooth extraction Hx of section 03/26/89 History of ankle surgery 2006--LEFT x3. In [place] Family History Mother Family history of thyroid problem Thyroid disease Diabetes Hypertension Father Brain aneurysm Denies family history of Colon cancer Ovarian cancer DVT (deep venous thrombosis) Heart disease Breast cancer Suicide Pulmonary embolism Uterine cancer Social History Smoking and tobacco/nicotine status: never used tobacco/nicotine Alcohol intake: current Alcohol intake frequency: 0-2 Drinks per Day Substance/Drug Use: never Physical Exam Const: COMMON NORMALS: no acute distress, patient oriented x3 and no limitations GENERAL APPEARANCE: cooperative and comfortable HENMT: COMMON NORMALS: normocephalic, atraumatic, Normal nasal mucous membranes and turbinates present, moist oral mucous membranes and oropharynx normal HEAD & SCALP: normal to inspection, normocephalic and atraumatic FACE & SINUS: normal facial exam NOSE: Normal nasal mucous membranes and turbinates present Eye: COMMON NORMALS: Equal, round and reactive pupils present, EOMs intact bilaterally and conjunctivae normal GENERAL EYE: appearance normal, both eyes and all related structures CONJUNCTIVA: Yes conjunctivae normal PUPIL: Yes Equal, round and reactive pupils present Neck/C-Spine: COMMON NORMALS: supple and no JVD Chest: COMMONS NORMALS: normal inspection of the chest Resp: COMMON NORMALS: normal respiratory effort and clear to auscultation bilaterally AUSCULTATION: clear to auscultation bilaterally Cardio: COMMON NORMALS: no JVD, regular rate, regular rhythm, No gallops present (Cardio), No murmurs present (Cardio) and No rub (Cardio) RATE: regular rate RHYTHM: regular rhythm GI: COMMON NORMALS: Normal to inspection, nondistended, normoactive bowel sounds present, Soft to palpation and non-tender AUSCULTATION: Yes normoactive bowel sounds PALPATION: Yes Soft to palpation : COMMON NORMALS: Yes no CVA tenderness BLADDER/KIDNEY EXAM: Yes no CVA tenderness Back/Pelvis: COMMON NORMALS: no CVA tenderness and thoracic and lumbar spine normal to inspection Extremity: COMMON NORMALS: normal to inspection Neuro: COMMON NORMALS: patient oriented x3 and CN's II-XII intact bilaterally Psych: COMMON NORMALS: mental status grossly normal, Normal thought process present and cooperative THOUGHT PROCESS: Normal thought process present Skin: COMMON NORMALS: no rashes or lesions noted, turgor normal and no jaundice GENERAL SKIN EXAM: no rashes or lesions noted and turgor normal Course Vital Signs: Vital signs: Vital Signs Temperature 97.9 F 04/30/24 16:40 Pulse Rate 99 04/30/24 19:50 Respiratory Rate 16 04/30/24 19:50 Blood Pressure 122/80 04/30/24 19:50 Pulse Oximetry 100 04/30/24 19:50 Oxygen Delivery Me thod Room Air 04/30/24 18:18 MDM - Altered Mental Status Medical Decision Making CBC, CMP and urinalysis normal. Patient was given injections of morphine for pain in the emergency department. She was discharged in stable condition instructed to follow-up with her primary care physician for ongoing management. Lab Data 04/30/24 17:55 04/30/24 17:55 Laboratory Results WBC 6.46 10^3/uL (3.29-11.43) 04/30/24 17:55 RBC 4.27 10^6/uL (3.85-5.65) 04/30/24 17:55 Hgb 12.70 g/dL (11.27-16.99) 04/30/24 17:55 Hct 39.4 % (36-47) 04/30/24 17:55 MCV 92.3 fl (85-98) 04/30/24 17:55 MCH 29.7 pg (27-33) 04/30/24 17:55 MCHC 32.2 g/dL (30-55) 04/30/24 17:55 RDW 14.7 % (12.1-15.1) 04/30/24 17:55 Plt Count 230 10^3/cmm (157-399) 04/30/24 17:55 MPV 9.8 fL (7.4-10.4) 04/30/24 17:55 Neut % (Auto) 73.2 % 04/30/24 17:55 Lymph % (Auto) 17.3 % 04/30/24 17:55 [place] % (Auto) 7.1 % 04/30/24 17:55 Eos % (Auto) 1.1 % 04/30/24 17:55 Baso % (Auto) 0.8 % 04/30/24 17:55 Neut # (Auto) 4.73 10^3/uL (1.8-7.7) 04/30/24 17:55 Lymph # (Auto) 1.1 10^3/uL (0.8-4.8) 04/30/24 17:55 [place] # (Auto) 0.5 10^3/uL (0.2-0.9) 04/30/24 17:55 Eos # (Auto) 0.1 10^3/uL (0.0-0.8) 04/30/24 17:55 Baso # (Auto) 0.1 10^3/uL (0.0-0.1) 04/30/24 17:55 Nucleated RBC % (auto) 0 % 04/30/24 17:55 Nucleated RBCs # 0.0 /100WBC 04/30/24 17:55 Sodium 143 mmol/L (136-145) 04/30/24 17:55 Potassium 3.9 mmol/L (3.5-5.1) 04/30/24 17:55 Chloride 104 mmol/L (98-107) 04/30/24 17:55 Carbon Dioxide 24 mmol/L (22-29) 04/30/24 17:55 Anion Gap 18.9 (5-19) 04/30/24 17:55 BUN 17 mg/dL (8-23) 04/30/24 17:55 Creatinine 0.6 mg/dL (0.5-0.9) 04/30/24 17:55 GFR Calculation 100.3 mL/min (90-130) 04/30/24 17:55 Glucose 117 mg/dL (65-115) H 04/30/24 17:55 Calculated Osmolality 299 mOsm/kg (285-295) H 04/30/24 17:55 Lactic Acid 1.1 mmol/L (0.5-2.2) 04/30/24 17:55 Calcium 9.7 mg/dL (8.5-10.5) 04/30/24 17:55 Total Bilirubin 0.9 mg/dL (0.15-1.2) 04/30/24 17:55 AST 25 U/L (0-32) 04/30/24 17:55 ALT 16 U/L (0-33) 04/30/24 17:55 Alkaline Phosphatase 144 U/L (35-105) H 04/30/24 17:55 Total Protein 8.0 g/dL (6.6-8.7) 04/30/24 17:55 Albumin 4.2 g/dL (3.5-5.2) 04/30/24 17:55 Globulin 3.8 g/dL (1.3-4.6) 04/30/24 17:55 Urine Color Yellow (Yellow) 04/30/24 18:58 Urine Appearance Clear (CLEAR) 04/30/24 18:58 Urine pH 5.5 (5-7) 04/30/24 18:58 Ur Specific [place] 1.017 (1.005-1.030) 04/30/24 18:58 Urine Protein Trace (Negative) A 04/30/24 18:58 Urine Glucose (UA) Negative (Normal) 04/30/24 18:58 Urine Ketones 2+ (Negative) H 04/30/24 18:58 Urine Blood Negative (Negative) 04/30/24 18:58 Urine Nitrate Negative (Negative) 04/30/24 18:58 Urine Bilirubin Negative (Negative) 04/30/24 18:58 Urine Urobilinogen 1.0 mg/dL (Negative) 04/30/24 18:58 Ur Leukocyte Esterase Trace (Negative) A 04/30/24 18:58 Urine RBC 0-2 /hpf (0-2) 04/30/24 18:58 Urine WBC 0-5 /hpf (0-5) 04/30/24 18:58 Ur Squamous Epith Cells 0-5 /hpf (0-5) 04/30/24 18:58 Amorphous Sediment Not Reportable 04/30/24 18:58 Urine Bacteria None seen /hpf (NONE) 04/30/24 18:58 Hyaline Casts 2.46 /lpf 04/30/24 18:58 No radiology studies performed this visit Discharge Plan Discharge Patient Disposition: Home Clinical Impression: Chronic low back pain without sciatica Qualifiers: Back pain laterality: unspecified Qualified Code(s): M54.50 - Low back pain, unspecified Condition: Stable Prescriptions: No Action oxybutynin chloride 5 mg tablet See Rx Instructions .ROUTE .COMPLEX Rx Instructions: Take 5 mg orally in morning and 10mg at bedtime. baclofen 20 mg tablet 20 mg PO QID PRN (Reason: spasms) 30 Days Qty: 120 1RF levothyroxine 50 mcg capsule 50 mcg PO QAM duloxetine [Cymbalta] 30 mg capsule,delayed release(DR/EC) 60 mg PO DAILY omeprazole 40 mg capsule,delayed release(DR/EC) 40 mg PO DAILY propranolol 40 mg tablet 40 mg PO BID ropinirole 0.5 mg tablet See Rx Instructions .ROUTE .COMPLEX Rx Instructions: 0.25mg qd, 0.5mg qhs sumatriptan succinate 100 mg tablet 100 mg PO DAILY PRN (Reason: Migraine Headache) Hold Instructions: Resume on 04/24/24. docusate sodium 100 mg Capsule 100 mg PO BID Qty: 14 0RF alendronate 70 mg tablet See Rx Instructions .ROUTE .COMPLEX Rx Instructions: 70 mg orally by mouth every week oxycodone-acetaminophen 10-325 mg tablet 1 tab PO Q6H MDD 4 PRN (Reason: Pain) cyanocobalamin (vitamin B-12) 1,000 mcg/mL solution See Rx Instructions .ROUTE .COMPLEX Rx Instructions: 1,000 mcg intramuscularly ;INJECT 1ML INTRAMUSCULARLY every week FOR FOUR WEEKS THEN ONCE MONTHLY nystatin 100,000 unit/gram cream 1 applic TOPICAL TID lisinopril 10 mg tablet 10 mg PO DAILY albuterol sulfate 90 mcg/actuation HFA aerosol inhaler 2 puff INHALATION Q4H PRN (Reason: Wheezing) atorvastatin 40 mg Tablet 40 mg PO BEDTIME 30 Days Qty: 30 0RF aspirin 81 mg Tablet,Delayed Release (Dr/Ec) 81 mg PO DAILY 30 Days Qty: 30 0RF Discharge Orders: Discharge ED (Routine); Ordered 04/30/24 Ordered By: Scott Rosario Referrals: Charity Salazar MD [Primary Care Provider] - Patient Instructions: Opioid Safety, Pain Management Activity Restrictions/Additional Instructions: Follow-up with your primary care physician for ongoing management. Coding Level of Care Code ED [employer] for Jade Gracia
== END 2024-04-30 19:49 | disposition home or self-care (01) ==
PROVIDERS: Emergency Provider Emergency Medicine; PCP Internal Medicine
DX: M54.50 Low back pain, unspecified (principal); Z79.82 Long term (current) use of aspirin; I10 Essential (primary) hypertension
CPT/HCPCS: 36415; 80053; 81001; 83605; 85025; 87040; 96374; 96375; 96376; 99284; J2270; J2405

== ENCOUNTER 2024-05-02 15:27 | Observation (INO) | payer MEDICARE, MEDICAID, SELFPAY ==
[2024-05-02] VITALS (16 sets, daily range): BP systolic 102–158; BP diastolic 56–89; PULSE 52–94; RESP 14–30; TEMP 34.7; O2SAT 90–100
--- NOTE | 2024-05-02 15:55 | W.ED.GENADLT ---
HPI - General Adult General: Chief complaint: Altered Mental Status Stated complaint: AMS Time Seen by Provider: 05/02/24 15:31 Source: EMS Mode of arrival: EMS History of Present Illness: The patient history of present illness is very limited. She was transported from her home by EMS. Apparently the patient's been acting confused today. She is unable to provide us with any illuminating history. Onset (ago): unknown Related Data Home Medications Medication Instructions Recorded Confirmed levothyroxine 50 mcg capsule 50 mcg PO QAM 07/04/19 04/15/24 duloxetine 30 mg capsule,delayed 60 mg PO DAILY 09/10/20 04/15/24 release (Cymbalta) oxybutynin chloride 5 mg tablet See Rx Instructions .Route .COMPLEX 05/23/21 04/15/24 omeprazole 40 mg capsule,delayed 40 mg PO DAILY 07/26/23 04/15/24 release propranolol 40 mg tablet 40 mg PO BID 07/26/23 04/15/24 ropinirole 0.5 mg tablet See Rx Instructions .Route .COMPLEX 07/26/23 04/15/24 sumatriptan succinate 100 mg tablet 100 mg PO DAILY PRN Migraine 08/23/23 04/15/24 Headache albuterol sulfate 90 mcg/actuation 2 puff inhalation Q4H PRN Wheezing 04/15/24 04/15/24 aerosol inhaler alendronate 70 mg tablet See Rx Instructions .Route .COMPLEX 04/15/24 04/15/24 cyanocobalamin (vitamin B-12) See Rx Instructions .Route .COMPLEX 04/15/24 04/15/24 1,000 mcg/mL injection solution lisinopril 10 mg tablet 10 mg PO DAILY 04/15/24 04/15/24 nystatin 100,000 unit/gram topical 1 applic topical TID 04/15/24 04/15/24 cream oxycodone-acetaminophen 10 mg-325 1 tab PO Q6H PRN Pain 04/15/24 04/15/24 mg tablet Previous Rx's Medication Instructions Recorded baclofen 20 mg tablet 20 mg PO QID PRN spasms 30 days 05/30/20 #120 tabs docusate sodium 100 mg capsule 100 mg PO BID #14 caps 10/20/23 aspirin 81 mg tablet,delayed 81 mg PO DAILY 30 days #30 tabs 04/17/24 release atorvastatin 40 mg tablet 40 mg PO BEDTIME 30 days #30 tabs 04/17/24 Allergies Allergy/AdvReac Type Severity Reaction Status Date / Time Penicillins Allergy RASH Verified 04/30/24 16:45 Sulfa (Sulfonamide Allergy ANAPHYLAXIS Verified 04/30/24 16:45 Antibiotics) Review of Systems General: Reports: ROS unobtainable due to mental status PFSH ED PFSH: Medical History At risk for polypharmacy Altered mental status Chronic hypertension Diagnosed at the age of 14 and controlled on medication managed by primary care provider. Anxiety and depression Currently on Cymbalta managed by her primary care provider. Hypothyroid Currently on levothyroxine managed by PMD No pertinent past medical history Denies: hypertension, diabetes, heart, lung, liver, kidney, thyroid, genital herpes, bleeding problems, or clotting problems. her primary care provider is Dr. Salazar Chronic low back pain without sciatica Currently on hydrocodone and baclofen managed by the pain clinic Surgical History History of back surgery 10/2020---jef placed in back S/P breast biopsy 2000-left breast-benign History of dental surgery tooth extraction Hx of section 03/26/89 History of ankle surgery 2006--LEFT x3. In [place] Family History Mother Family history of thyroid problem Thyroid disease Diabetes Hypertension Father Brain aneurysm Denies family history of Colon cancer Ovarian cancer DVT (deep venous thrombosis) Heart disease Breast cancer Suicide Pulmonary embolism Uterine cancer Social History Smoking and tobacco/nicotine status: never used tobacco/nicotine Alcohol intake: current Alcohol intake frequency: 0-2 Drinks per Day Substance/Drug Use: never Physical Exam Narrative: EXAM NARRATIVE: On initial evaluation she was awake and alert but very restless complaining of back discomfort. She denied any other symptoms but was limited in her responses. Const: COMMON NORMALS: alert GENERAL APPEARANCE: anxious HENMT: COMMON NORMALS: Normal nasal mucous membranes and turbinates present, moist oral mucous membranes and oropharynx normal FACE & SINUS: face symmetric NOSE: Normal nasal mucous membranes and turbinates present Eye: COMMON NORMALS: Equal, round and reactive pupils present, EOMs intact bilaterally and conjunctivae normal CONJUNCTIVA: Yes conjunctivae normal PUPIL: Yes Equal, round and reactive pupils present Neck/C-Spine: COMMON NORMALS: full ROM and supple Chest: COMMONS NORMALS: normal inspection of the chest and normal palpation of entire chest wall Resp: COMMON NORMALS: normal respiratory effort, No retractions, No use of accessory muscles and clear to auscultation bilaterally AUSCULTATION: clear to auscultation bilaterally Cardio: COMMON NORMALS: regular rate, regular rhythm, No murmurs present (Cardio) and Peripheral pulses 2+ throughout RATE: regular rate RHYTHM: regular rhythm PERIPHERAL PULSES: Peripheral pulses 2+ throughout GI: COMMON NORMALS: Normal to inspection, nondistended, normoactive bowel sounds present, Soft to palpation and non-tender PALPATION: Yes Soft to palpation Back/Pelvis: COMMON NORMALS: thoracic and lumbar spine normal to inspection, no thoracic nor lumbar tenderness and thoraco-lumbar ROM normal Extremity: COMMON NORMALS: normal to inspection, full ROM, capillary refill normal, no calf tenderness and no pedal edema Neuro: COMMON NORMALS: moves all extremities SENSORIUM/ORIENTATION: Yes alert and Yes fluctuating sensorium Skin: COMMON NORMALS: no rashes or lesions noted, no wounds and turgor normal GENERAL SKIN EXAM: no rashes or lesions noted and turgor normal Course Reevaluation(s): Reevaluation #1: Patient does have a history of medication misadventures in the past and has recently refilled some of her opiates. Will going give her a trial dose of Narcan to see if that affects her mentation. Time: 16:30 Reevaluation #2: Patient is more interactive and conversant at this time. Time: 19:16 Reevaluation #3: Patient is markedly improved and and she feels back at her baseline. She states that she feels much better has no pain or discomfort at this time. She still has a urinalysis pending and we will review that result and then reevaluate her but at this point in time she is anxious to be discharged from the emergency department. Time: 20:30 Additional Reevaluation(s): Patient's friend is now here and also relates that this is similar to prior occurrence and also we talked about ways to reduce potential for medication misadventures. She remains concerned because the patient lives alone and she is unable to stay with her at this time. We will plan on placing her in observation to ensure that she is back to her baseline. Consultations: Consultation #1: Discussed with the overnight hospitalist who agreed to place her in observation Time: 21:35 Vital Signs: Vital signs: Vital Signs Temperature 94.5 F L 05/02/24 15:57 Pulse Rate 75 05/02/24 20:30 Respiratory Rate 18 05/02/24 20:30 Blood Pressure 141/63 05/02/24 20:30 Pulse Oximetry 92 05/02/24 20:30 Oxygen Delivery Me thod Nasal Cannula 05/02/24 19:15 MDM - General Adult Medical Decision Making Patient presented with very limited illuminating history. On initial evaluation she was noted to be uncomfortable and somewhat restless complaining of back pain. Her initial temperature was noted to be hypothermic. Differential is very broad and workup was initiated to determine etiology of her presentation given our limited history. She was previously in this emergency department 2 days ago for her chronic back pain. Differential included potential toxic metabolic issues, versus infection, medication effects, intoxication etc. Certainly possible car monoxide, hypoxia etc. are also considered. Evaluation initially was initiated to include laboratories directed to that differential. Laboratories are reassuring at that there was no overt evidence of hypoglycemia, biochemical perturbations such as hyponatremia hyponatremia etc. She did have a borderline low pO2 level and she was given supplemental oxygen however after receiving Narcan she no longer required supplemental oxygen and became more progressively more alert over the ensuing several hours during her ED observation time. Lactic acid was not significantly elevated, her TSH was normal and again she continue to improve back to her baseline. Her urinalysis did reveal that she had evidence of a urinary tract infection but at the given her lactic acid level, her other vital signs unlikely to be sepsis or overwhelming infection causing her presentation. As far as her hypothermia apparently she has been keeping her house at approximately 50 to 55 degrees according to her friend. She is not quite back at her baseline according to friends and is unable to be watched and would have to stay by herself for therefore we will go ahead and place her in observation to ensure her and continued improvement and suitability to return back to her domicile. Medical Records I reviewed the patient's medical records. This patient was admitted to this facility on 04/15-09/2023 for very similar presentation with confusion. Lab Data I reviewed the patient's lab results. 05/02/24 16:30 05/02/24 16:30 Laboratory Results WBC 5.60 10^3/uL (3.29-11.43) 05/02/24 16:30 RBC 4.16 10^6/uL (3.85-5.65) 05/02/24 16:30 Hgb 12.20 g/dL (11.27-16.99) 05/02/24 16:30 Hct 41.0 % (36-47) 05/02/24 16:30 MCV 98.6 fl (85-98) H 05/02/24 16:30 MCH 29.3 pg (27-33) 05/02/24 16: MCHC 29.8 g/dL (30-55) L 05/02/24 16:30 RDW 14.7 % (12.1-15.1) 05/02/24 16:30 Plt Count 212 10^3/cmm (157-399) 05/02/24 16:30 MPV 10.0 fL (7.4-10.4) 05/02/24 16:30 Neut % (Auto) 75.3 % 05/02/24 16:30 Lymph % (Auto) 16.1 % 05/02/24 16:30 Rains % (Auto) 6.8 % 05/02/24 16:30 Eos % (Auto) 0.9 % 05/02/24 16:30 Baso % (Auto) 0.5 % 05/02/24 16:30 Neut # (Auto) 4.22 10^3/uL (1.8-7.7) 05/02/24 16:30 Lymph # (Auto) 0.9 10^3/uL (0.8-4.8) 05/02/24 16:30 Rains # (Auto) 0.4 10^3/uL (0.2-0.9) 05/02/24 16:30 Eos # (Auto) 0.1 10^3/uL (0.0-0.8) 05/02/24 16:30 Baso # (Auto) 0.0 10^3/uL (0.0-0.1) 05/02/24 16:30 Nucleated RBC % (auto) 0 % 05/02/24 16:30 Nucleated RBCs # 0.0 /100WBC 05/02/24 16:30 Specimen Type Arterial 05/02/24 16:11 Sample Site Radial, left 05/02/24 16:11 ABG pH 7.32 (7.35-7.45) L 05/02/24 16:11 ABG pCO2 54.2 mmHg (35-45) H 05/02/24 16:11 ABG pO2 56.7 mmHg (80.0-100.0) L 05/02/24 16:11 ABG PO2/FiO2 Ratio 270 05/02/24 16:11 ABG HCO3 27.9 mmol/L (22-26) H 05/02/24 16:11 ABG Base Excess 1.0 mmol/L (-2.0-2.0) 05/02/24 16:11 Hal Test N/a 05/02/24 16:11 Hematocrit 34.6 % (37-47) L 05/02/24 16:11 Hgb O2 Saturation 86.2 % (95-100) L 05/02/24 16:11 Carboxyhemoglobin 1.3 %THgb (0.4-20.1) 05/02/24 16:11 Methemoglobin 0.2 % (0.4-1.5) L 05/02/24 16:11 Total Hemoglobin 11.3 g/dL (12-16) L 05/02/24 16:11 O2 Delivery Device Room air 05/02/24 16:11 FiO2 21.0 % 05/02/24 16:11 Director Of Strategic Programs ID [place] 05/02/24 16:11 Sodium 140 mmol/L (136-145) 05/02/24 16:30 Potassium 4.2 mmol/L (3.5-5.1) 05/02/24 16:30 Chloride 103 mmol/L (98-107) 05/02/24 16:30 Carbon Dioxide 22 mmol/L (22-29) 05/02/24 16:30 Anion Gap 19.2 (5-19) H 05/02/24 16:30 BUN 16 mg/dL (8-23) 05/02/24 16:30 Creatinine 0.8 mg/dL (0.5-0.9) 05/02/24 16:30 GFR Calculation 72.0 mL/min (90-130) L 05/02/24 16:30 Glucose 139 mg/dL (65-115) H 05/02/24 16:30 Calculated Osmolality 293 mOsm/kg (285-295) 05/02/24 16:30 Lactic Acid 2.2 mmol/L (0.5-2.2) 05/02/24 16:30 Lactic Acid (Sepsis) 1.1 mmol/L (0.5-2.2) 05/02/24 19:40 Calcium 9.4 mg/dL (8.5-10.5) 05/02/24 16:30 Total Bilirubin 0.4 mg/dL (0.15-1.2) 05/02/24 16:30 AST 27 U/L (0-32) 05/02/24 16: ALT 18 U/L (0-33) 05/02/24 16:30 Alkaline Phosphatase 130 U/L (35-105) H 05/02/24 16:30 Total Protein 7.2 g/dL (6.6-8.7) 05/02/24 16:30 Albumin 3.8 g/dL (3.5-5.2) 05/02/24 16: Globulin 3.4 g/dL (1.3-4.6) 05/02/24 16: TSH 0.68 uIU/mL (0.27-4.20) 05/02/24 16:30 Urine Color Dark yellow (Yellow) A 05/02/24 20: Urine Appearance Cloudy (CLEAR) A 05/02/24 20: Urine pH 5.5 (5-7) 05/02/24 20: Ur Specific [place] 1.021 (1.005-1.030) 05/02/24 20: Urine Protein Trace (Negative) A 05/02/24 20: Urine Glucose (UA) Negative (Normal) 05/02/24 20: Urine Ketones Trace (Negative) 05/02/24 20: Urine Blood Negative (Negative) 05/02/24 20: Urine Nitrate Negative (Negative) 05/02/24 20: Urine Bilirubin Negative (Negative) 05/02/24 20: Urine Urobilinogen 1.0 mg/dL (Negative) 05/02/24 20: Ur Leukocyte Esterase 1+ (Negative) A 05/02/24 20:01 Urine RBC 0-2 /hpf (0-2) 05/02/24 20:01 Urine WBC 11-20 /hpf (0-5) H 05/02/24 20:01 Ur Squamous Epith Cells 11-20 /hpf (0-5) 05/02/24 20:01 Amorphous Sediment Not Reportable 05/02/24 20:01 Urine Bacteria 1+ /hpf (NONE) H 05/02/24 20:01 Hyaline Casts 21.92 /lpf 05/02/24 20:01 Ethyl Alcohol < 10 mg/dL (0-10) 05/02/24 16:30 No radiology studies performed this visit Discharge Plan Discharge Patient Disposition: Placed in Observation Clinical Impression: Chronic back pain, Urinary tract infection, Medication adverse effect Condition: Stable Prescriptions: No Action oxybutynin chloride 5 mg tablet See Rx Instructions .ROUTE .COMPLEX Rx Instructions: Take 5 mg orally in morning and 10mg at bedtime. baclofen 20 mg tablet 20 mg PO QID PRN (Reason: spasms) 30 Days Qty: 120 1RF levothyroxine 50 mcg capsule 50 mcg PO QAM duloxetine [Cymbalta] 30 mg capsule,delayed release(DR/EC) 60 mg PO DAILY omeprazole 40 mg capsule,delayed release(DR/EC) 40 mg PO DAILY propranolol 40 mg tablet 40 mg PO BID ropinirole 0.5 mg tablet See Rx Instructions .ROUTE .COMPLEX Rx Instructions: 0.25mg qd, 0.5mg qhs sumatriptan succinate 100 mg tablet 100 mg PO DAILY PRN (Reason: Migraine Headache) Hold Instructions: Resume on 04/24/24. docusate sodium 100 mg Capsule 100 mg PO BID Qty: 14 0RF alendronate 70 mg tablet See Rx Instructions .ROUTE .COMPLEX Rx Instructions: 70 mg orally by mouth every week oxycodone-acetaminophen 10-325 mg tablet 1 tab PO Q6H MDD 4 PRN (Reason: Pain) cyanocobalamin (vitamin B-12) 1,000 mcg/mL solution See Rx Instructions .ROUTE .COMPLEX Rx Instructions: 1,000 mcg intramuscularly ;INJECT 1ML INTRAMUSCULARLY every week FOR FOUR WEEKS THEN ONCE MONTHLY nystatin 100,000 unit/gram cream 1 applic TOPICAL TID lisinopril 10 mg tablet 10 mg PO DAILY albuterol sulfate 90 mcg/actuation HFA aerosol inhaler 2 puff INHALATION Q4H PRN (Reason: Wheezing) atorvastatin 40 mg Tablet 40 mg PO BEDTIME 30 Days Qty: 30 0RF aspirin 81 mg Tablet,Delayed Release (Dr/Ec) 81 mg PO DAILY 30 Days Qty: 30 0RF Referrals: Charity Salazar MD [Primary Care Provider] - Patient Instructions: Altered Mental Status (ED), Opioid Safety, Pain Management Coding Level of Care Code ED Diagnostic Sales Specialist for Jade Gracia
[2024-05-02 16:24] LABS: ABG PCO2 54.2 mmHg (35-45); ABG PH Result 7.32 (7.35-7.45); Arterial Blood Gas Hematocrit 34.6 % (37-47); Blood Gas Operator Identificat MONRO; Blood Gas Sample Site Radial, left; Blood Gas Sample Type Arterial; Carboxyhemoglobin 1.3 %THgb (0.4-20.1); HCO3 ABG 27.9 mmol/L (22-26); HGB O2 Sat 86.2 % (95-100); Methemoglobin 0.2 % (0.4-1.5); Oxygen Device ROOM AIR; PO2 ABG 56.7 mmHg (80.0-100.0); PO2 FiO2 Ratio Arterial Blood 270; Total Hemoglobin 11.3 g/dL (12-16)
[2024-05-02] MEDS: naloxone 0.4 mg/ml SDV IVP (16:40)
[2024-05-02 16:44] LABS: Basophils % 0.5 %; Eosinophils # 0.1 10^3/uL (0.0-0.8); Eosinophils % 0.9 %; Lymphocytes # 0.9 10^3/uL (0.8-4.8); Lymphocytes % 16.1 %; Mean Corpuscular HGB Conc 29.8 g/dL (30-55); Mean Corpuscular Hemoglobin 29.3 pg (27-33); Mean Corpuscular Volume 98.6 fl (85-98); Monocytes # 0.4 10^3/uL (0.2-0.9); Monocytes % 6.8 %; Neutrophils # 4.22 10^3/uL (1.8-7.7); Neutrophils % 75.3 %; Nucleated Red Blood Cells % 0 %; Platelet Count 212 10^3/cmm (157-399); Red Blood Count 4.16 10^6/uL (3.85-5.65); Red Cell Distribution Width 14.7 % (12.1-15.1)
[2024-05-02 17:03] LABS: Lactic Sepsis W/Reflex 2.2 mmol/L (0.5-2.2)
[2024-05-02] MEDS: lactated ringers 1,000 ML 999 ML IV ×2 (17:36→19:02)
[2024-05-02] MEDS: ketorolac 30 mg/mL INJ 15 MG IVP ×2 (17:36→22:28)
[2024-05-02 17:46] LABS: Alanine Aminotransferase 18 U/L (0-33); Albumin Level 3.8 g/dL (3.5-5.2); Alcohol Level < 10 mg/dL (0-10); Alkaline Phosphatase 130 U/L (35-105); Anion Gap 19.2 (5-19); Aspartate Amino Transferase 27 U/L (0-32); Blood Urea Nitrogen 16 mg/dL (8-23); Calcium 9.4 mg/dL (8.5-10.5); Carbon Dioxide 22 mmol/L (22-29); Chloride 103 mmol/L (98-107); Globulin 3.4 g/dL (1.3-4.6); Glucose 139 mg/dL (65-115); Osmolality Calculated 293 mOsm/kg (285-295); Potassium 4.2 mmol/L (3.5-5.1); Sodium 140 mmol/L (136-145); Thyroid Stimulating Hormone 0.68 uIU/mL (0.27-4.20); Total Bilirubin 0.4 mg/dL (0.15-1.2); Total Protein 7.2 g/dL (6.6-8.7)
[2024-05-02 18:25] LABS: Reflex Lactate Order REFLEX LACTIC ORDERD
[2024-05-02 20:30] LABS: Bilirubin Urine Negative (Negative); Blood Urine Negative (Negative); Glucose Urine UA Negative (Normal); Ketones Urine Trace (Negative); Leukocyte Esterase Urine 1+ (Negative); Nitrate Urine Negative (Negative); Protein Urine Trace (Negative); Specific Gravity, Urine 1.021 (1.005-1.030); Urine Appearance Cloudy (CLEAR); Urine Color Dark Yellow (Yellow); pH Urine 5.5 (5-7)
[2024-05-02 20:35] LABS: Add Urine Microscopic? YES; Bacteria Urine 1+ /hpf; Hyaline Casts Urine 21.92 /lpf; RBC Urine 0-2 /hpf (0-2)
[2024-05-02 20:46] LABS: Lactic Acid level (Lactate) 1.1 mmol/L (0.5-2.2)
[2024-05-02] MEDS: nitrofurantoin SR (BID) 100 mg Capsule PO (21:38)
--- NOTE | 2024-05-02 23:52 | P.HP_ITS ---
Providers/Chief Complaint 2 Primary Care Provider: Charity Salazar MD Chief Complaint: AMS History of Present Illness Niki Agosto is a 63 year old female with a past medical history significant for back pain, chronic opioid use, hyperlipidemia and hypertension who presents to the emergency department with altered mental status. Patient found to be a poor historian. She was recently admitted for similar presentation at which time there was concern for polypharmacy and UTI. Patient denies alleviating or aggravating factors. Complains of back pain. Denies fevers, chills, nausea or emesis. She reportedly lives home alone and not appropriate for discharge home from ED tonight. Review of Systems 2 Narrative: A complete review of systems was obtained and is negative except as stated in HPI. Medications/Allergies Home Medications Medication Instructions Recorded Confirmed Last Taken Type levothyroxine 50 mcg capsule 50 mcg PO QAM 07/04/19 05/03/24 2 Days Ago History ~05/01/24 baclofen 20 mg tablet 20 mg PO QID PRN spasms 30 days 05/30/20 05/03/24 1 Day Ago Rx #120 tabs ~05/02/24 duloxetine 30 mg capsule,delayed 60 mg PO DAILY 09/10/20 05/03/24 1 Day Ago History release (Cymbalta) ~05/02/24 oxybutynin chloride 5 mg tablet See Rx Instructions .Route .COMPLEX 05/23/21 05/03/24 1 Day Ago History ~05/02/24 omeprazole 40 mg capsule,delayed 40 mg PO DAILY 07/26/23 05/03/24 1 Day Ago History release ~05/02/24 propranolol 40 mg tablet 40 mg PO BID 07/26/23 05/03/24 1 Day Ago History ~05/02/24 ropinirole 0.5 mg tablet See Rx Instructions .Route .COMPLEX 07/26/23 05/03/24 1 Day Ago History ~05/02/24 sumatriptan succinate 100 mg tablet 100 mg PO DAILY PRN Migraine 08/23/23 05/03/24 1 Week Ago History Headache ~04/26/24 docusate sodium 100 mg capsule 100 mg PO BID #14 caps 10/20/23 05/03/24 11/12/23 Rx albuterol sulfate 90 mcg/actuation 2 puff inhalation Q4H PRN Wheezing 04/15/24 05/03/24 Unknown History aerosol inhaler alendronate 70 mg tablet See Rx Instructions .Route .COMPLEX 04/15/24 05/03/24 Unknown History cyanocobalamin (vitamin B-12) See Rx Instructions .Route .COMPLEX 04/15/24 05/03/24 Unknown History 1,000 mcg/mL injection solution lisinopril 10 mg tablet 10 mg PO DAILY 04/15/24 05/03/24 1 Day Ago History ~05/02/24 nystatin 100,000 unit/gram topical 1 applic topical TID 04/15/24 05/03/24 Unknown History cream oxycodone-acetaminophen 10 mg-325 1 tab PO Q6H PRN Pain 04/15/24 05/03/24 1 Day Ago History mg tablet ~05/02/24 aspirin 81 mg tablet,delayed 81 mg PO DAILY 30 days #30 tabs 04/17/24 05/03/24 1 Day Ago Rx release ~05/02/24 atorvastatin 40 mg tablet 40 mg PO BEDTIME 30 days #30 tabs 04/17/24 05/03/24 1 Day Ago Rx ~05/02/24 Allergies Allergy/AdvReac Type Severity Reaction Status Date / Time Penicillins Allergy RASH Verified 04/30/24 16:45 Sulfa (Sulfonamide Allergy ANAPHYLAXIS Verified 04/30/24 16:45 Antibiotics) PFSH Acute 2 PFSH: Medical History (Updated 05/03/24 @ 06:17 by Raj Boyer MD) At risk for polypharmacy Altered mental status Chronic hypertension Diagnosed at the age of 14 and controlled on medication managed by primary care provider. Anxiety and depression Currently on Cymbalta managed by her primary care provider. Hypothyroid Currently on levothyroxine managed by PMD No pertinent past medical history Denies: hypertension, diabetes, heart, lung, liver, kidney, thyroid, genital herpes, bleeding problems, or clotting problems. her primary care provider is Dr. Salazar Chronic low back pain without sciatica Currently on hydrocodone and baclofen managed by the pain clinic Surgical History History of back surgery 10/2020---jef placed in back S/P breast biopsy 2000-left breast-benign History of dental surgery tooth extraction Hx of section 03/26/89 History of ankle surgery 2006--LEFT x3. In [place] Family History Mother Family history of thyroid problem Thyroid disease Diabetes Hypertension Father Brain aneurysm Denies family history of Colon cancer Ovarian cancer DVT (deep venous thrombosis) Heart disease Breast cancer Suicide Pulmonary embolism Uterine cancer Social History Smoking and tobacco/nicotine status: never used tobacco/nicotine Alcohol intake: current Alcohol intake frequency: 0-2 Drinks per Day Substance/Drug Use: never Vitals/I&O/Wt Last Vital Signs Temp 94.5 F L 05/02/24 15:57 Pulse 89 05/02/24 23:45 Resp 21 H 05/02/24 23:45 BP 135/73 05/02/24 23:45 Pulse Ox 91 05/02/24 23:45 O2 Del Method Nasal Cannula 05/02/24 19:15 05/02/24 05/02/24 05/03/24 14:59 22:59 06:59 Intake Total 1999 Balance 1999 Physical Exam 2 Narrative: General: Patient is awake. Head: Normocephalic. Atraumatic. EOM intact. Neck: No JVD. Cardiovascular: RRR. No gallops. No murmurs. Lungs: Clear to auscultation, no use of accessory muscles, no crackles or wheezes. Skin: No jaundice. No rashes. Abdomen: Normal bowel sounds, abdomen soft and nontender. Extremities: No cyanosis or clubbing. Abrasion present on left anterior knee. Musculoskeletal: No erythematous joints. Neurological: Moves all 4 extremities. No myoclonus. Pedal pulses intact. Data 05/03/24 04:33 05/03/24 04:33 Micro: Microbiology 05/02/24 16:30 Blood Culture - Preliminary Blood SPECIMEN COLLECTED 05/02/24 16:33 Blood Culture - Preliminary Blood SPECIMEN COLLECTED A&P Assessment and plan (1) Altered mental status: Suspected acute toxic encephalopathy secondary to polypharmacy and UTI Treat UTI Decrease dosing on home Baclofen and hydrocodone Toradol PRN Avoid further sedating medications Supportive care (2) Urinary tract infection: Follow Ux Start Cefepime Qualifiers: Hematuria presence: without hematuria Urinary tract infection type: s ite unspecified Qualified Code(s): N39.0 - Urinary tract infection, site not specified (3) Chronic low back pain without sciatica: Qualifiers: Back pain laterality: unspecified Qualified Code(s): M54.50 - Low back pain, unspecified; G89.29 - Other chronic pain (4) Hypothyroid: Recent TSH nl Continue Synthroid Plan DVT ppx: Lovenox Attestations 2 Medical Necessity Statement*: Patient presents with confusion, found to have suspected UTI and polypharmacy with expected hospitazation not cross two midnights. Coding Level of Care Code Acute Code for Chg Fwd Diagnoses Altered mental status R41.82 Urinary tract infection N39.0 Hematuria presence: without hematuria Urinary tract infection type: site unspecified Chronic low back pain without sciatica M54.50; G89.29 Back pain laterality: unspecified Hypothyroid E03.9
[2024-05-03] VITALS (15 sets, daily range): BP systolic 108–151; BP diastolic 56–93; PULSE 64–101; RESP 16–21; TEMP 36.6–37.1; O2SAT 92–98; BMI 35.9
[2024-05-03] MEDS: oxyCODONE 5 mg IR Tab/Cap PO (01:56)
[2024-05-03] MEDS: cefepime 1,000 MG in sodium chloride 0.9% (plus) 50 ML 100 MG IV ×2 (02:12→14:41)
[2024-05-03 04:53] LABS: Basophils # 0.1 10^3/uL (0.0-0.1); Basophils % 0.7 %; Eosinophils # 0.1 10^3/uL (0.0-0.8); Eosinophils % 1.6 %; Lymphocytes # 1.5 10^3/uL (0.8-4.8); Lymphocytes % 21.8 %; Mean Corpuscular HGB Conc 30.8 g/dL (30-55); Mean Corpuscular Hemoglobin 29.4 pg (27-33); Mean Corpuscular Volume 95.5 fl (85-98); Monocytes # 0.6 10^3/uL (0.2-0.9); Monocytes % 8.1 %; Neutrophils # 4.77 10^3/uL (1.8-7.7); Neutrophils % 67.5 %; Nucleated Red Blood Cells % 0 %; Platelet Count 250 10^3/cmm (157-399); Red Blood Count 3.77 10^6/uL (3.85-5.65); Red Cell Distribution Width 14.6 % (12.1-15.1); White Blood Count 7.06 10^3/uL (3.29-11.43)
[2024-05-03 05:13] LABS: Alanine Aminotransferase 17 U/L (0-33); Albumin Level 3.6 g/dL (3.5-5.2); Alkaline Phosphatase 113 U/L (35-105); Anion Gap 13.9 (5-19); Aspartate Amino Transferase 26 U/L (0-32); Blood Urea Nitrogen 13 mg/dL (8-23); Calcium 8.5 mg/dL (8.5-10.5); Carbon Dioxide 25 mmol/L (22-29); Chloride 104 mmol/L (98-107); Creatinine Clr Calc Pharmacy 89.8246; Globulin 2.7 g/dL (1.3-4.6); Glomerular Filtration Rate 100.3 mL/min (90-130); Glucose 122 mg/dL (65-115); Osmolality Calculated 289 mOsm/kg (285-295); Potassium 3.9 mmol/L (3.5-5.1); Sodium 139 mmol/L (136-145); Total Bilirubin 0.6 mg/dL (0.15-1.2); Total Protein 6.3 g/dL (6.6-8.7)
[2024-05-03 05:14] LABS: Magnesium 1.9 mg/dL (1.7-2.3); Phosphorus 3.7 mg/dL (2.5-4.5)
[2024-05-03] MEDS: levothyroxine 50 mcg Tablet PO (06:04)
[2024-05-03] MEDS: propranolol 40 mg Tablet PO ×2 (09:13→17:43)
[2024-05-03] MEDS: pantoprazole DR 40 mg Tablet PO (09:13)
[2024-05-03] MEDS: aspirin 81 mg EC Tablet PO (09:13)
[2024-05-03] MEDS: lisinopril 10 mg Tablet PO (09:14)
[2024-05-03] MEDS: docusate sodium 100 mg Capsule PO (09:14)
[2024-05-03] MEDS: enoxaparin 40 mg/0.4 mL Syringe SUBCUT (09:14)
[2024-05-03] MEDS: oxybutynin 5 mg Tablet PO (09:14)
[2024-05-03] MEDS: lidocaine 5% Patch 1 PATCH TOPICAL (09:15)
[2024-05-03] MEDS: nystatin cream 30 gm 1 APPLIC TOPICAL ×3 (09:16→20:26)
[2024-05-03] MEDS: oxyCODONE-APAP 10-325 mg Tablet 1 TAB PO ×3 (09:26→20:26)
--- NOTE | 2024-05-03 15:14 | P.PN_ITS ---
Subjective 2 Subjective: Patient was seen this morning, she is alert oriented x 3, following all commands, she tells me that she does remember the events of yesterday that while she lives at home by herself, she has 2 family friends that check up on her regularly, they are close neighbors, her daughter lives out in [place], she does have regular contact with her daughter, no falls, no injuries, no neck pain, neck stiffness, she does report that recently her back has been hurting her more and she has been using her oxycodone 10-325 1 to 2 tablets every 6 hours, and the night before, she took extra tablets to help her sleep due to severe back pain, she does not remember how many but she thinks it was about 2 Vitals/I&O/Wt Last Vital Signs Temp 98.3 F 05/03/24 11:43 Pulse 68 05/03/24 11:43 Resp 18 05/03/24 14:46 BP 116/80 05/03/24 11:43 Pulse Ox 94 05/03/24 11:43 O2 Del Method Room Air 05/03/24 11:43 05/03/24 05/03/24 05/03/24 06:59 14:59 22:59 Intake Total 2049 120 / 120 Balance 2049 120 / 120 Weight last 48 hrs Weight 107.048 kg Weight 107.048 kg Physical Exam 2 Const: COMMON NORMALS: no acute distress and patient oriented x3 Resp: COMMON NORMALS: normal respiratory effort, No retractions, No use of accessory muscles and clear to auscultation bilaterally AUSCULTATION: clear to auscultation bilaterally Cardio: COMMON NORMALS: regular rate, regular rhythm, S1 normal heart sound present and S2 normal heart sound present RATE: regular rate RHYTHM: r egular rhythm HEART SOUNDS: S1 normal heart sound present and S2 normal heart sound present GI: COMMON NORMALS: Normal to inspection, nondistended, normoactive bowel sounds present and non-tender Extremity: COMMON NORMALS: no pedal edema Neuro: COMMON NORMALS: patient oriented x3 Psych: COMMON NORMALS: mental status grossly normal Data 05/03/24 04:33 05/03/24 04:33 Micro: Microbiology 05/02/24 16:30 Blood Culture - Preliminary Blood SPECIMEN COLLECTED 05/02/24 16:33 Blood Culture - Preliminary Blood SPECIMEN COLLECTED A&P Assessment and plan (1) Altered mental status: Suspected acute toxic encephalopathy secondary to polypharmacy and UTI Treat UTI Likely polypharmacy with baclofen, hydrocodone, spaced out to every 8 hours Monitor closely Toradol PRN Avoid further sedating medications Supportive care (2) Urinary tract infection: Follow Ux Start Cefepime Qualifiers: Hematuria presence: without hematuria Urinary tract infection type: s ite unspecified Qualified Code(s): N39.0 - Urinary tract infection, site not specified (3) Chronic low back pain without sciatica: Qualifiers: Back pain laterality: unspecified Qualified Code(s): M54.50 - Low back pain, unspecified; G89.29 - Other chronic pain (4) Hypothyroid: Recent TSH nl Continue Synthroid Plan DVT ppx: Lovenox Attestations 2 Medical Necessity Statement*: Patient requires hospitalization for altered mental status, likely polypharmacy, UTI Diagnoses Altered mental status R41.82 Urinary tract infection N39.0 Hematuria presence: without hematuria Urinary tract infection type: site unspecified Chronic low back pain without sciatica M54.50; G89.29 Back pain laterality: unspecified Hypothyroid E03.9
[2024-05-03] MEDS: FUROsemide 10 mg/mL SDV 4mL 40 MG IVP (15:57)
[2024-05-03] MEDS: atorvastatin 40 mg Tablet PO (20:25)
[2024-05-03] MEDS: oxybutynin 5 mg Tablet 10 MG PO (20:26)
[2024-05-03] MEDS: baclofen 10 mg Tablet PO (20:39)
[2024-05-03] MEDS: diphenhydrAMINE 25 mg Capsule PO (23:32)
[2024-05-04] VITALS (8 sets, daily range): BP systolic 125–157; BP diastolic 69–93; PULSE 68–85; RESP 16–19; TEMP 36.5–36.8; O2SAT 94–97
[2024-05-04] MEDS: cefepime 1,000 MG in sodium chloride 0.9% (plus) 50 ML 100 MG IV (01:34)
--- NOTE | 2024-05-04 01:47 | PC.NURSE ---
Pain Control: Pt called this nurse into the room to discuss pain medication. [facility] hospital[facility] Dr[facility] Vences changed the frequency of the Pt's Percocet to q8h instead of q6h. At approximately 130, pt stated she needed something for pain or she was leaving AMA. This nurse informed pt that she could not have another Percocet untit 4:26 because this nurse had given her one at 2025, but I would message the [facility] to ask. Dr. Boyer notified and said it was okay to give the Percocet now and the pt can discuss pain management further with Dr. Vences today.
[2024-05-04] MEDS: oxyCODONE-APAP 10-325 mg Tablet 1 TAB PO ×2 (01:52→09:54)
[2024-05-04] MEDS: baclofen 10 mg Tablet PO (04:05)
[2024-05-04 05:23] LABS: Basophils # 0.1 10^3/uL (0.0-0.1); Eosinophils # 0.2 10^3/uL (0.0-0.8); Eosinophils % 3.1 %; Lymphocytes # 1.7 10^3/uL (0.8-4.8); Lymphocytes % 33.1 %; Mean Corpuscular HGB Conc 31.1 g/dL (30-55); Mean Corpuscular Hemoglobin 29.9 pg (27-33); Mean Corpuscular Volume 95.9 fl (85-98); Mean Platelet Volume 9.5 fL (7.4-10.4); Monocytes # 0.4 10^3/uL (0.2-0.9); Monocytes % 8.3 %; Neutrophils # 2.79 10^3/uL (1.8-7.7); Neutrophils % 54.1 %; Nucleated Red Blood Cells % 0 %; Platelet Count 229 10^3/cmm (157-399); Red Blood Count 3.65 10^6/uL (3.85-5.65); Red Cell Distribution Width 14.6 % (12.1-15.1); White Blood Count 5.16 10^3/uL (3.29-11.43)
[2024-05-04 05:47] LABS: Alanine Aminotransferase 16 U/L (0-33); Albumin Level 3.3 g/dL (3.5-5.2); Alkaline Phosphatase 100 U/L (35-105); Anion Gap 11.5 (5-19); Aspartate Amino Transferase 22 U/L (0-32); Blood Urea Nitrogen 9 mg/dL (8-23); Calcium 8.6 mg/dL (8.5-10.5); Carbon Dioxide 29 mmol/L (22-29); Chloride 103 mmol/L (98-107); Creatinine Clr Calc Pharmacy 89.8246; Globulin 2.5 g/dL (1.3-4.6); Glomerular Filtration Rate 123.8 mL/min (90-130); Glucose 114 mg/dL (65-115); Osmolality Calculated 290 mOsm/kg (285-295); Potassium 3.5 mmol/L (3.5-5.1); Sodium 140 mmol/L (136-145); Total Bilirubin 0.4 mg/dL (0.15-1.2); Total Protein 5.8 g/dL (6.6-8.7)
[2024-05-04 05:58] LABS: NT Pro B Type Natriuretic Pept 751 pg/mL (0-125)
[2024-05-04] MEDS: levothyroxine 50 mcg Tablet PO (06:13)
[2024-05-04] MEDS: aspirin 81 mg EC Tablet PO (09:21)
[2024-05-04] MEDS: docusate sodium 100 mg Capsule PO (09:22)
[2024-05-04] MEDS: enoxaparin 40 mg/0.4 mL Syringe SUBCUT (09:23)
[2024-05-04] MEDS: lidocaine 5% Patch 1 PATCH TOPICAL (09:23)
[2024-05-04] MEDS: lisinopril 10 mg Tablet PO (09:24)
[2024-05-04] MEDS: pantoprazole DR 40 mg Tablet PO (09:26)
[2024-05-04] MEDS: oxybutynin 5 mg Tablet PO (09:26)
[2024-05-04] MEDS: propranolol 40 mg Tablet PO (09:27)
--- NOTE | 2024-05-04 11:00 | PM.DCS ---
Discharge Providers Date of Admission: 05/03/24 00:00 Date of Discharge: May 04, 2024 Attending Provider at Admission: Raj Boyer MD Attending Provider at Discharge: Maurizio Vences MD Primary Care Provider: Charity Salazar MD Diagnoses at Discharge Discharge Diagnosis (1) Altered mental status: Status: Acute (2) Urinary tract infection: Status: Acute Qualifiers: Hematuria presence: without hematuria Urinary tract infection type: site unspecified Qualified Code(s): N39.0 - Urinary tract infection, site not specified (3) Chronic low back pain without sciatica: Status: Chronic Qualifiers: Back pain laterality: unspecified Qualified Code(s): M54.50 - Low back pain, unspecified; G89.29 - Other chronic pain Permanent problem details: Currently on hydrocodone and baclofen managed by the pain clinic (4) Hypothyroid: Status: Acute Permanent problem details: Currently on levothyroxine managed by PMD Reason for Visit Reason for Visit: AMS Hospital Course Hospital Course This is a 63-year-old female with a past medical history of back pain, chronic opiate use, hyperlipidemia hypertension who presents to [facility] for altered mental status Patient was admitted to [facility] for altered mental status, likely multifactorial acute toxic encephalopathy secondary polypharmacy narcotic use/baclofen, and UTI. For her UTI she received IV antibiotics, overall mentation improved, back to baseline alert oriented x 3, following all commands, discharged on p.o. cefdinir In terms of her polypharmacy secondary to narcotic use, baclofen use. Patient has a chronic history of back pain for which she is prescribed duloxetine 60 mg daily, baclofen 20 mg p.o. 4 times daily as needed, and oxycodone 10-325 1 tab p.o. every 6 hours as needed for pain. She tells me that she uses these medications, for chronic back pain, which is managed by the pain clinic. She tells me that recently she has been having increased back pain, so she has been at times using the oxycodone 1 to 2 tablets every 4 hours as needed for pain. And she tells me that the night before she came to the hospital her oxycodone which was sitting at bedside, she was in such severe pain she had to use 2 tablets before bedtime. She denies any suicidal ideation, homicidal ideation, denies feeling down depressed or sad, her only complaint is severe low back pain for which she is managed by the pain clinic. He denies any urinary continence, no bowel incontinence no saddle or perianal anesthesia. She was monitored in inpatient, overall mentation improved. On discharge I had a detailed discussion with her about using her medications as prescribed, the morbidity and mortality of using her pain medications more than prescribed, risk of interaction, risk of narcotic overdose, risk of , she voiced understanding, all questions answered. She tells me she will use her narcotics, baclofen as prescribed, uses sparingly, and if she continues to have back pain to follow-up with pain clinic. Discussed with her to follow-up with pain clinic sooner. I have recommended for her to use the oxycodone every 8 hours as needed for pain. She should not use the baclofen with the oxycodone, due to risk of side effects, try to space out these medications and use baclofen very sparingly. In addition I have also sent in Narcan if there is any concerns for opiate overdose, to use Narcan and call 911. She voiced understanding, all questions answered. Physical Exam Const: COMMON NORMALS: no acute distress and patient oriented x3 Resp: COMMON NORMALS: normal respiratory effort, No retractions, No use of accessory muscles and clear to auscultation bilaterally AUSCULTATION: clear to auscultation bilaterally Cardio: COMMON NORMALS: regular rate, regular rhythm, S1 normal heart sound present and S2 normal heart sound present RATE: regular rate RHYTHM: regular rhythm HEART SOUNDS: S1 normal heart sound present and S2 normal heart sound present GI: COMMON NORMALS: Normal to inspection, nondistended, normoactive bowel sounds present and non-tender Extremity: COMMON NORMALS: no pedal edema Neuro: COMMON NORMALS: patient oriented x3 Psych: COMMON NORMALS: mental status grossly normal Discharge Data Studies Completed and Pending Pending at discharge Category Date Time Status Blood Culture Stat Lab 05/02/24 16:30 Results Complete Blood Count w/Auto AM LABS Lab 05/05/24 04:00 Ordered Complete Blood Count w/Auto AM LABS Lab 05/06/24 04:00 Ordered Comprehensive Metabolic Panel AM LABS Lab 05/05/24 04:00 Ordered Comprehensive Metabolic Panel AM LABS Lab 05/06/24 04:00 Ordered NT Pro B Type Natriuretic Pept QAM Lab 05/05/24 06:00 Ordered NT Pro B Type Natriuretic Pept QAM Lab 05/06/24 06:00 Ordered Laboratory Results WBC 5.16 10^3/uL (3.29-11.43) 05/04/24 05:08 RBC 3.65 10^6/uL (3.85-5.65) L 05/04/24 05:08 Hgb 10.90 g/dL (11.27-16.99) L 05/04/24 05:08 Hct 35.0 % (36-47) L 05/04/24 05:08 MCV 95.9 fl (85-98) 05/04/24 05:08 MCH 29.9 pg (27-33) 05/04/24 05:08 MCHC 31.1 g/dL (30-55) 05/04/24 05:08 RDW 14.6 % (12.1-15.1) 05/04/24 05:08 Plt Count 229 10^3/cmm (157-399) 05/04/24 05:08 MPV 9.5 fL (7.4-10.4) 05/04/24 05:08 Neut % (Auto) 54.1 % 05/04/24 05:08 Lymph % (Auto) 33.1 % 05/04/24 05:08 [place] % (Auto) 8.3 % 05/04/24 05:08 Eos % (Auto) 3.1 % 05/04/24 05:08 Baso % (Auto) 1.0 % 05/04/24 05:08 Neut # (Auto) 2.79 10^3/uL (1.8-7.7) 05/04/24 05:08 Lymph # (Auto) 1.7 10^3/uL (0.8-4.8) 05/04/24 05:08 [place] # (Auto) 0.4 10^3/uL (0.2-0.9) 05/04/24 05:08 Eos # (Auto) 0.2 10^3/uL (0.0-0.8) 05/04/24 05:08 Baso # (Auto) 0.1 10^3/uL (0.0-0.1) 05/04/24 05:08 Nucleated RBC % (auto) 0 % 05/04/24 05:08 Nucleated RBCs # 0.0 /100WBC 05/04/24 05:08 Specimen Type Arterial 05/02/24 16:11 Sample Site Radial, left 05/02/24 16:11 ABG pH 7.32 (7.35-7.45) L 05/02/24 16:11 ABG pCO2 54.2 mmHg (35-45) H 05/02/24 16:11 ABG pO2 56.7 mmHg (80.0-100.0) L 05/02/24 16:11 ABG PO2/FiO2 Ratio 270 05/02/24 16:11 ABG HCO3 27.9 mmol/L (22-26) H 05/02/24 16:11 ABG Base Excess 1.0 mmol/L (-2.0-2.0) 05/02/24 16:11 Hal Test N/a 05/02/24 16:11 Hematocrit 34.6 % (37-47) L 05/02/24 16:11 Hgb O2 Saturation 86.2 % (95-100) L 05/02/24 16:11 Carboxyhemoglobin 1.3 %THgb (0.4-20.1) 05/02/24 16:11 Methemoglobin 0.2 % (0.4-1.5) L 05/02/24 16:11 Total Hemoglobin 11.3 g/dL (12-16) L 05/02/24 16:11 O2 Delivery Device Room air 05/02/24 16:11 FiO2 21.0 % 05/02/24 16:11 Tray Line Worker ID [place] 05/02/24 16:11 Sodium 140 mmol/L (136-145) 05/04/24 05:08 Potassium 3.5 mmol/L (3.5-5.1) 05/04/24 05:08 Chloride 103 mmol/L (98-107) 05/04/24 05:08 Carbon Dioxide 29 mmol/L (22-29) 05/04/24 05:08 Anion Gap 11.5 (5-19) 05/04/24 05:08 BUN 9 mg/dL (8-23) 05/04/24 05:08 Creatinine 0.5 mg/dL (0.5-0.9) 05/04/24 05:08 GFR Calculation 123.8 mL/min (90-130) 05/04/24 05:08 Glucose 114 mg/dL (65-115) 05/04/24 05:08 Calculated Osmolality 290 mOsm/kg (285-295) 05/04/24 05:08 Lactic Acid 2.2 mmol/L (0.5-2.2) 05/02/24 16:30 Lactic Acid (Sepsis) 1.1 mmol/L (0.5-2.2) 05/02/24 19:40 Calcium 8.6 mg/dL (8.5-10.5) 05/04/24 05:08 Phosphorus 3.7 mg/dL (2.5-4.5) 05/03/24 04:33 Magnesium 1.9 mg/dL (1.7-2.3) 05/03/24 04:33 Total Bilirubin 0.4 mg/dL (0.15-1.2) 05/04/24 05:08 AST 22 U/L (0-32) 05/04/24 05:08 ALT 16 U/L (0-33) 05/04/24 05:08 Alkaline Phosphatase 100 U/L (35-105) 05/04/24 05:08 NT-Pro-B Natriuret Pep 751 pg/mL (0-125) H 05/04/24 05:08 Total Protein 5.8 g/dL (6.6-8.7) L 05/04/24 05:08 Albumin 3.3 g/dL (3.5-5.2) L 05/04/24 05:08 Globulin 2.5 g/dL (1.3-4.6) 05/04/24 05:08 TSH 0.68 uIU/mL (0.27-4.20) 05/02/24 16:30 Urine Color Dark yellow (Yellow) A 05/02/24 20:01 Urine Appearance Cloudy (CLEAR) A 05/02/24 20:01 Urine pH 5.5 (5-7) 05/02/24 20:01 Ur Specific [place] 1.021 (1.005-1.030) 05/02/24 20:01 Urine Protein Trace (Negative) A 05/02/24 20:01 Urine Glucose (UA) Negative (Normal) 05/02/24 20:01 Urine Ketones Trace (Negative) 05/02/24 20:01 Urine Blood Negative (Negative) 05/02/24 20:01 Urine Nitrate Negative (Negative) 05/02/24 20:01 Urine Bilirubin Negative (Negative) 05/02/24 20:01 Urine Urobilinogen 1.0 mg/dL (Negative) 05/02/24 20:01 Ur Leukocyte Esterase 1+ (Negative) A 05/02/24 20:01 Urine RBC 0-2 /hpf (0-2) 05/02/24 20:01 Urine WBC 11-20 /hpf (0-5) H 05/02/24 20:01 Ur Squamous Epith Cells 11-20 /hpf (0-5) 05/02/24 20:01 Amorphous Sediment Not Reportable 05/02/24 20:01 Urine Bacteria 1+ /hpf (NONE) H 05/02/24 20:01 Hyaline Casts 21.92 /lpf 05/02/24 20:01 Ethyl Alcohol < 10 mg/dL (0-10) 05/02/24 16:30 Vitals Last Vital Signs Temp 97.7 F 05/04/24 07:33 Pulse 81 05/04/24 10:29 Resp 18 05/04/24 10:29 BP 157/83 05/04/24 07:33 Pulse Ox 97 05/04/24 10:29 O2 Del Method Room Air 05/04/24 10:29 Discharge Plan Discharge Patient Disposition: Home Condition: Stable Prescriptions: New cefdinir 300 mg capsule 300 mg PO BID 5 Days Qty: 10 0RF naloxone [Narcan] 4 mg/actuation spray,non-aerosol 4 mg intranasal Q2M PRN (Reason: opioid overdose) Qty: 2 0RF Rx Instructions: spray 1 dose into ONE nostril; alternate nostrils w each dose until help arrives Continued oxybutynin chloride 5 mg tablet See Rx Instructions .ROUTE .COMPLEX Rx Instructions: Take 5 mg orally in morning and 10mg at bedtime. baclofen 20 mg tablet 20 mg PO QID PRN (Reason: spasms) 30 Days Qty: 120 1RF levothyroxine 50 mcg capsule 50 mcg PO QAM duloxetine [Cymbalta] 30 mg capsule,delayed release(DR/EC) 60 mg PO DAILY omeprazole 40 mg capsule,delayed release(DR/EC) 40 mg PO DAILY propranolol 40 mg tablet 40 mg PO BID ropinirole 0.5 mg tablet See Rx Instructions .ROUTE .COMPLEX Rx Instructions: 0.25mg qd, 0.5mg qhs sumatriptan succinate 100 mg tablet 100 mg PO DAILY PRN (Reason: Migraine Headache) Hold Instructions: Resume on 04/24/24. docusate sodium 100 mg Capsule 100 mg PO BID Qty: 14 0RF alendronate 70 mg tablet See Rx Instructions .ROUTE .COMPLEX Rx Instructions: 70 mg orally by mouth every week oxycodone-acetaminophen 10-325 mg tablet 1 tab PO Q6H MDD 4 PRN (Reason: Pain) cyanocobalamin (vitamin B-12) 1,000 mcg/mL solution See Rx Instructions .ROUTE .COMPLEX Rx Instructions: 1,000 mcg intramuscularly ;INJECT 1ML INTRAMUSCULARLY every week FOR FOUR WEEKS THEN ONCE MONTHLY nystatin 100,000 unit/gram cream 1 applic TOPICAL TID lisinopril 10 mg tablet 10 mg PO DAILY albuterol sulfate 90 mcg/actuation HFA aerosol inhaler 2 puff INHALATION Q4H PRN (Reason: Wheezing) atorvastatin 40 mg Tablet 40 mg PO BEDTIME 30 Days Qty: 30 0RF aspirin 81 mg Tablet,Delayed Release (Dr/Ec) 81 mg PO DAILY 30 Days Qty: 30 0RF Discharge Orders: Discharge Order (Routine); Ordered 05/04/24 Ordered By: Maurizio Vences Referrals: Charity Salazar MD [Primary Care Provider] - 05/08/24 2:15 pm Discharge Diet: Cardiac Discharge Activity: Resume usual activity Patient Instructions: Narcotic Safety (DC), Altered Mental Status (ED), Opioid Safety, Pain Management Activity Restrictions/Additional Instructions: -please do not take more than pain medication than prescribed -Please do not use more than Flexeril than prescribed -please use narcan as needed for opoid overdose -You are at increased risk of adverse side effects from your opiate medications, your muscle relaxers, which are associated with increased risk of morbidity and mortality. Please use medication as prescribed, do not use more medications than prescribed, if any concerns for opiate overdose please use Narcan and then called 911 -Please do not drive or operate heavy machinery or drink while taking medication Discharge Attestations Time Spent in Discharge Care*: greater than 30 min Quality Metrics Clinical Quality Measures [ No reported AMI, CVA or VTE this stay] Coding Level of Care Code 64080 Total time (in minutes) for Discharge: 45 Diagnoses Altered mental status R41.82 Urinary tract infection N39.0 Hematuria presence: without hematuria Urinary tract infection type: site unspecified Chronic low back pain without sciatica M54.50; G89.29 Back pain laterality: unspecified Hypothyroid E03.9
== END 2024-05-04 12:48 | disposition home or self-care (01) ==
LOC: ER 21:39 → MEDSURG 05-03 00:04
PROVIDERS: Admitting Provider Internal Medicine; Emergency Provider Emergency Medicine; PCP Internal Medicine; Visit Provider Family Medicine
DX: N39.0 Urinary tract infection, site not specified (principal); E03.9 Hypothyroidism, unspecified; G89.29 Other chronic pain; M54.50 Low back pain, unspecified; Z79.891 Long term (current) use of opiate analgesic
CPT/HCPCS: 36415; 36600; 80053; 80307; 81001; 82805; 83605; 83735; 83880; 84100; 84443; 85025; 87040; 96361; 96365; 96372; 96375; 99285; G0378; J0692; J1650; J1885; J1940; J2310; J3535; J7120

== ENCOUNTER 2024-05-19 06:00 | Outpatient (RCR) | payer MEDICARE, MEDICAID, SELFPAY | END 2024-06-13 23:59 | disposition home or self-care (01) | LOC: SPT 06:00 | PROVIDERS: Visit Provider Family Medicine | DX: M54.59 Other low back pain (principal); M62.81 Muscle weakness (generalized); R29.3 Abnormal posture | CPT/HCPCS: 97110; 97161 ==

== ENCOUNTER → 2024-06-01 14:29 | Outpatient (BNVA) | payer MEDICARE, MEDICAID, SELFPAY | PROVIDERS: PCP Internal Medicine; Visit Provider Physician Assistant | DX: M54.16 Radiculopathy, lumbar region; M54.50 Low back pain, unspecified | CPT/HCPCS: 73502; 99213 ==

== ENCOUNTER 2024-06-02 15:12 | Emergency (ER) | payer MEDICARE, MEDICAID, SELFPAY ==
--- NOTE | 2024-06-02 15:22 | XRR_ITS ---
PROCEDURE INFORMATION: Exam: XR Chest Exam date and time: 06/02/2024 3:32 PM Age: 64 years old Clinical indication: Injury or trauma; Fall; Blunt trauma (contusions or hematomas) TECHNIQUE: Imaging protocol: Radiologic exam of the chest. Views: 1 view. COMPARISON: CR XR chest 1V portable [id number] 04/15/2024 1:22 PM FINDINGS: Lungs: Unremarkable. No consolidation. Pleural spaces: Unremarkable. No pleural effusion. No pneumothorax. Heart/Mediastinum: Unremarkable. No cardiomegaly. Bones/joints: There is partially visualized intact thoracal lumbar spinal hardware. No acute findings. XR/XR chest 1V portable [id number] IMPRESSION: No acute findings.
[2024-06-02 15:23] VITALS: BP 149/87; PULSE 79; RESP 17; TEMP 36.7; O2SAT 98; BMI 33.4
--- NOTE | 2024-06-02 15:28 | ECG_ITS ---
[facility]24[facility] Pat Name: Niki Agosto Department: Room: Gender: Female Online Marketing Analyst: : 1960 Requested By: Delonte Shaw Order Number: [id number] Kirti MD: Nerissa Hancock M.D. Measurements Intervals [place] Rate: 77 P: 90 [place]: 156 QRS: 27 QRSD: 93 T: 34 QT: 374 QTc: 424 Interpretive Statements SINUS RHYTHM Compared to ECG 04/15/2024 23:49:44 No significant changes Electronically Signed On 06-02-2024 19:47:30 CONDUIT HELPER by Nerissa Hancock M.D. [email or web address]
[2024-06-02 15:43] LABS: Basophils % 0.4 %; Eosinophils # 0.1 10^3/uL (0.0-0.8); Hematocrit 40.7 % (36-47); Lymphocytes # 1.4 10^3/uL (0.8-4.8); Lymphocytes % 18.5 %; Mean Corpuscular HGB Conc 31.2 g/dL (30-55); Mean Corpuscular Hemoglobin 29.3 pg (27-33); Mean Platelet Volume 10.1 fL (7.4-10.4); Monocytes # 0.4 10^3/uL (0.2-0.9); Monocytes % 5.6 %; Neutrophils # 5.71 10^3/uL (1.8-7.7); Neutrophils % 74.2 %; Nucleated Red Blood Cells % 0 %; Platelet Count 284 10^3/cmm (157-399); Red Blood Count 4.33 10^6/uL (3.85-5.65); Red Cell Distribution Width 13.5 % (12.1-15.1); White Blood Count 7.69 10^3/uL (3.29-11.43)
--- NOTE | 2024-06-02 15:48 | XRR_ITS ---
PROCEDURE INFORMATION: Exam: XR Bilateral Hips Exam date and time: 06/02/2024 4:03 PM Age: 64 years old Clinical indication: Injury or trauma; Fall; Blunt trauma (contusions or hematomas); Bilateral; Hip; Additional info: Fall bilateral hip pain TECHNIQUE: Imaging protocol: Radiologic exam of the bilateral hips. Views: 2 views of hips with pelvis when performed. COMPARISON: CR XR hip RT 2-3V wo/w pel* [id number] 06/01/2024 2:59 PM FINDINGS: Bones/joints: No fracture or other acute abnormality. There is unchanged intact left hip/femoral internal fixation hardware. The distal end of the intramedullary jef is excluded from the field of view. There is also a partially visualized intact lumbosacral spinal hardware. Soft tissues: Unremarkable. XR/XR hip BI 3-4V wo/w pel [id number] IMPRESSION: Nonacute findings.
[2024-06-02 16:04] LABS: Troponin(5th) Baseline 21 ng/L (0-10)
[2024-06-02 16:06] LABS: Lactic Sepsis W/Reflex 1.2 mmol/L (0.5-2.2)
--- NOTE | 2024-06-02 16:10 | ED_ITS ---
HPI - Fall 2 General: Chief Complaint: Fall Stated Complaint: fall - down since this am Time Seen by Provider: 06/02/24 15:21 History of Present Illness: Patient presents to the ER by EMS after falling and being down on the floor since approximate o'clock this morning. Patient does report some bilateral hip and pelvis pain. Patient states she laid on the floor the entire time until EMS got there. Patient was given 75 mcg of fentanyl and 4 mg Zofran. Patient is on no anticoagulation. Patient is unsure if she hit her head. Related Data Home Medications Medication Instructions Recorded Confirmed levothyroxine 50 mcg capsule 50 mcg PO QAM 07/04/19 06/02/24 duloxetine 30 mg capsule,delayed 60 mg PO DAILY 09/10/20 06/02/24 release (Cymbalta) oxybutynin chloride 5 mg tablet See Rx Instructions .Route .COMPLEX 05/23/21 06/02/24 omeprazole 40 mg capsule,delayed 40 mg PO DAILY 07/26/23 06/02/24 release ropinirole 0.5 mg tablet See Rx Instructions .Route .COMPLEX 07/26/23 06/02/24 sumatriptan succinate 100 mg tablet 100 mg PO DAILY PRN Migraine 08/23/23 06/02/24 Headache albuterol sulfate 90 mcg/actuation 2 puff inhalation Q4H PRN Wheezing 04/15/24 06/02/24 aerosol inhaler alendronate 70 mg tablet See Rx Instructions .Route .COMPLEX 04/15/24 06/02/24 cyanocobalamin (vitamin B-12) See Rx Instructions .Route .COMPLEX 04/15/24 06/02/24 1,000 mcg/mL injection solution lisinopril 10 mg tablet 10 mg PO DAILY 04/15/24 06/02/24 oxycodone-acetaminophen 10 mg-325 1 tab PO Q6H PRN Pain 04/15/24 06/02/24 mg tablet atorvastatin 40 mg tablet 40 mg PO QPM 06/02/24 06/02/24 celecoxib 200 mg capsule 200 mg PO BID 06/02/24 06/02/24 Previous Rx's Medication Instructions Recorded baclofen 20 mg tablet 20 mg PO QID PRN spasms 30 days 05/30/20 #120 tabs docusate sodium 100 mg capsule 100 mg PO BID #14 caps 05/08/24 Allergies Allergy/AdvReac Type Severity Reaction Status Date / Time gabapentin Allergy Severe ADR-Halluci Verified 06/02/24 15:33 nating Penicillins Allergy RASH Verified 06/02/24 15:33 Sulfa (Sulfonamide Allergy ANAPHYLAXIS Verified 06/02/24 15:33 Antibiotics) Review of Systems 2 General: Reports: 10 or more systems reviewed and unremarkable except in HPI and below PFSH ED 2 PFSH: Medical History At risk for polypharmacy Altered mental status Chronic hypertension Diagnosed at the age of 14 and controlled on medication managed by primary care provider. Anxiety and depression Currently on Cymbalta managed by her primary care provider. Hypothyroid Currently on levothyroxine managed by PMD No pertinent past medical history Denies: hypertension, diabetes, heart, lung, liver, kidney, thyroid, genital herpes, bleeding problems, or clotting problems. her primary care provider is Dr. Salazar Chronic low back pain without sciatica Currently on hydrocodone and baclofen managed by the pain clinic Surgical History History of back surgery 10/2020---jef placed in back S/P breast biopsy 2000-left breast-benign History of dental surgery tooth extraction Hx of section 03/26/89 History of ankle surgery 2006--LEFT x3. In [place] Family History Mother Family history of thyroid problem Thyroid disease Diabetes Hypertension Father Brain aneurysm Denies family history of Colon cancer Ovarian cancer DVT (deep venous thrombosis) Heart disease Breast cancer Suicide Pulmonary embolism Uterine cancer Social History Smoking and tobacco/nicotine status: never used tobacco/nicotine Alcohol intake: current Alcohol intake frequency: 0-2 Drinks per Day Substance/Drug Use: never Physical Exam 2 Const: COMMON NORMALS: no acute distress, average body habitus, patient oriented x3, no limitations, healthy appearing, alert and well nourished HENMT: COMMON NORMALS: normocephalic, atraumatic, hearing grossly normal bilaterally, external ears normal, Normal external nose present and moist oral mucous membranes HEAD & SCALP: normocephalic and atraumatic NOSE: Normal external nose present EXTERNAL EAR: Yes external ears normal Eye: COMMON NORMALS: Equal, round and reactive pupils present, EOMs intact bilaterally, conjunctivae normal and no scleral icterus CONJUNCTIVA: Yes conjunctivae normal PUPIL: Yes Equal, round and reactive pupils present Neck/C-Spine: COMMON NORMALS: full ROM, no lymphadenopathy, supple, no meningeal signs, no JVD and Thyroid normal THYROID: Thyroid normal Chest: COMMONS NORMALS: normal inspection of the chest and normal palpation of entire chest wall Resp: COMMON NORMALS: normal respiratory effort, No retractions, No use of accessory muscles and clear to auscultation bilaterally AUSCULTATION: clear to auscultation bilaterally Cardio: COMMON NORMALS: no JVD, regular rate, regular rhythm, S1 normal heart sound present, S2 normal heart sound present, No gallops present (Cardio), No clicks present (Cardio), No murmurs present (Cardio) and No rub (Cardio) R ATE: regular rate RHYTHM: regular rhythm HEART SOUNDS: S1 normal heart sound present and S2 normal heart sound present GI: COMMON NORMALS: Normal to inspection, nondistended, normoactive bowel sounds present, Soft to palpation, non-tender, No hepatosplenomegaly present and no masses PALPATION: Yes Soft to palpation and Yes No hepatosplenomegaly present Neuro: COMMON NORMALS: patient oriented x3 SENSORIUM/ORIENTATION: Yes alert MENINGEAL SIGNS: Yes no meningeal signs Course 2 Vital Signs: Vital signs: Vital Signs Temperature 98.0 F 06/02/24 15:23 Pulse Rate 84 06/02/24 18:00 Respiratory Rate 16 06/02/24 18:18 Blood Pressure 139/121 06/02/24 18:00 Pulse Oximetry 91 06/02/24 17:47 Oxygen Delivery Me thod Room Air 06/02/24 17:47 MDM - Fall Medical Decision Making X-rays read by the radiologist as negative of the chest hip and pelvis, lab work was unremarkable, patient was given pain medicine while here in Asking for more. Patient be discharged home to take her normal Percocet. Medical Records I reviewed the patient's medical records. Lab Data I reviewed the patient's lab results. 06/02/24 14:59 06/02/24 14:59 Radiology Impressions Chest X-Ray 06/02/24 15:22 IMPRESSION: No acute findings. Hip/Pelvis X-Ray 06/02/24 15:48 IMPRESSION: Nonacute findings. Laboratory Results WBC 7.69 10^3/uL (3.29-11.43) 06/02/24 14:59 RBC 4.33 10^6/uL (3.85-5.65) 06/02/24 14:59 Hgb 12.70 g/dL (11.27-16.99) 06/02/24 14:59 Hct 40.7 % (36-47) 06/02/24 14:59 MCV 94.0 fl (85-98) 06/02/24 14:59 MCH 29.3 pg (27-33) 06/02/24 14:59 MCHC 31.2 g/dL (30-55) 06/02/24 14:59 RDW 13.5 % (12.1-15.1) 06/02/24 14:59 Plt Count 284 10^3/cmm (157-399) 06/02/24 14:59 MPV 10.1 fL (7.4-10.4) 06/02/24 14:59 Neut % (Auto) 74.2 % 06/02/24 14:59 Lymph % (Auto) 18.5 % 06/02/24 14:59 [place] % (Auto) 5.6 % 06/02/24 14:59 Eos % (Auto) 1.0 % 06/02/24 14:59 Baso % (Auto) 0.4 % 06/02/24 14:59 Neut # (Auto) 5.71 10^3/uL (1.8-7.7) 06/02/24 14:59 Lymph # (Auto) 1.4 10^3/uL (0.8-4.8) 06/02/24 14:59 [place] # (Auto) 0.4 10^3/uL (0.2-0.9) 06/02/24 14:59 Eos # (Auto) 0.1 10^3/uL (0.0-0.8) 06/02/24 14:59 Baso # (Auto) 0.0 10^3/uL (0.0-0.1) 06/02/24 14:59 Nucleated RBC % (auto) 0 % 06/02/24 14:59 Nucleated RBCs # 0.0 /100WBC 06/02/24 14:59 Sodium 142 mmol/L (136-145) 06/02/24 14:59 Potassium 4.5 mmol/L (3.5-5.1) 06/02/24 14:59 Chloride 103 mmol/L (98-107) 06/02/24 14:59 Carbon Dioxide 26 mmol/L (22-29) 06/02/24 14:59 Anion Gap 17.5 (5-19) 06/02/24 14:59 BUN 19 mg/dL (8-23) 06/02/24 14:59 Creatinine 0.6 mg/dL (0.5-0.9) 06/02/24 14:59 GFR Calculation 100.0 mL/min (90-130) 06/02/24 14:59 Glucose 122 mg/dL (65-115) H 06/02/24 14:59 Calculated Osmolality 298 mOsm/kg (285-295) H 06/02/24 14:59 Lactic Acid 1.2 mmol/L (0.5-2.2) 06/02/24 14:59 Calcium 9.8 mg/dL (8.5-10.5) 06/02/24 14:59 Magnesium 2.1 mg/dL (1.7-2.3) 06/02/24 14:59 Total Bilirubin 0.5 mg/dL (0.15-1.2) 06/02/24 14:59 AST 18 U/L (0-32) 06/02/24 14:59 ALT 13 U/L (0-33) 06/02/24 14:59 Alkaline Phosphatase 146 U/L (35-105) H 06/02/24 14:59 Creatine Kinase 94 U/L (26-192) 06/02/24 14:59 Troponin T Baseline 21 ng/L (0-10) H 06/02/24 14:59 Troponin T 120 Minute 18.81 ng/L (0-10) H 06/02/24 16:18 Delta Troponin T -2.19 ABS# (0-10) L 06/02/24 16:18 Total Protein 7.6 g/dL (6.6-8.7) 06/02/24 14:59 Albumin 4.4 g/dL (3.5-5.2) 06/02/24 14:59 Globulin 3.2 g/dL (1.3-4.6) 06/02/24 14:59 Urine Color Yellow (Yellow) 06/02/24 18:06 Urine Appearance Clear (CLEAR) 06/02/24 18:06 Urine pH 5.5 (5-7) 06/02/24 18:06 Ur Specific [place] 1.013 (1.005-1.030) 06/02/24 18:06 Urine Protein Negative (Negative) 06/02/24 18:06 Urine Glucose (UA) Negative (Normal) 06/02/24 18:06 Urine Ketones Trace (Negative) 06/02/24 18:06 Urine Blood Negative (Negative) 06/02/24 18:06 Urine Nitrate Negative (Negative) 06/02/24 18:06 Urine Bilirubin Negative (Negative) 06/02/24 18:06 Urine Urobilinogen 1.0 mg/dL (Negative) 06/02/24 18:06 Ur Leukocyte Esterase Negative (Negative) 06/02/24 18:06 Urine RBC 0-2 /hpf (0-2) 06/02/24 18:06 Urine WBC 0-5 /hpf (0-5) 06/02/24 18:06 Ur Squamous Epith Cells 0-5 /hpf (0-5) 06/02/24 18:06 Amorphous Sediment Not Reportable 06/02/24 18:06 Urine Bacteria None seen /hpf (NONE) 06/02/24 18:06 Hyaline Casts 0.81 /lpf 06/02/24 18:06 All radiology interpretation(s) finalized by discharge Discharge Plan Discharge Patient Disposition: Home Clinical Impression: Fall Condition: Stable Prescriptions: No Action oxybutynin chloride 5 mg tablet See Rx Instructions .ROUTE .COMPLEX Rx Instructions: Take 5 mg orally in morning and 10mg at bedtime. baclofen 20 mg tablet 20 mg PO QID PRN (Reason: spasms) 30 Days Qty: 120 1RF levothyroxine 50 mcg capsule 50 mcg PO QAM duloxetine [Cymbalta] 30 mg capsule,delayed release(DR/EC) 60 mg PO DAILY omeprazole 40 mg capsule,delayed release(DR/EC) 40 mg PO DAILY ropinirole 0.5 mg tablet See Rx Instructions .ROUTE .COMPLEX Rx Instructions: 0.25mg qd, 0.5mg qhs sumatriptan succinate 100 mg tablet 100 mg PO DAILY PRN (Reason: Migraine Headache) Hold Instructions: Resume on 04/24/24. docusate sodium 100 mg Capsule 100 mg PO BID Qty: 14 0RF alendronate 70 mg tablet See Rx Instructions .ROUTE .COMPLEX Rx Instructions: 70 mg orally by mouth every week oxycodone-acetaminophen 10-325 mg tablet 1 tab PO Q6H MDD 4 PRN (Reason: Pain) cyanocobalamin (vitamin B-12) 1,000 mcg/mL solution See Rx Instructions .ROUTE .COMPLEX Rx Instructions: 1,000 mcg intramuscularly ;INJECT 1ML INTRAMUSCULARLY every week FOR FOUR WEEKS THEN ONCE MONTHLY lisinopril 10 mg tablet 10 mg PO DAILY albuterol sulfate 90 mcg/actuation HFA aerosol inhaler 2 puff INHALATION Q4H PRN (Reason: Wheezing) celecoxib 200 mg capsule 200 mg PO BID atorvastatin 40 mg tablet 40 mg PO QPM Discharge Orders: Discharge ED (Routine); Ordered 06/02/24 Ordered By: Delonte Shaw Referrals: Charity Salazar MD [Primary Care Provider] - 1 week Patient Instructions: Opioid Safety, Pain Management Activity Restrictions/Additional Instructions: Thank you for choosing [facility] for your healthcare needs today. Please realize that you were seen in the emergency department and that we are providing you with an emergency medical screening exam and this may not be a complete and all exclusive of all testing and/or medical workup we may need to determine your element or severity of your illness. It is very important that you follow-up as instructed with your primary care provider or specialist for the additional evaluation and to discuss your medical treatment plan. You may return to the emergency department should you have concerns or if your condition changes or worsens in any way. 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
[2024-06-02 16:21] LABS: Alanine Aminotransferase 13 U/L (0-33); Albumin Level 4.4 g/dL (3.5-5.2); Alkaline Phosphatase 146 U/L (35-105); Anion Gap 17.5 (5-19); Aspartate Amino Transferase 18 U/L (0-32); Blood Urea Nitrogen 19 mg/dL (8-23); Calcium 9.8 mg/dL (8.5-10.5); Carbon Dioxide 26 mmol/L (22-29); Chloride 103 mmol/L (98-107); Creatine Phosphokinase 94 U/L (26-192); Creatinine Clr Calc Pharmacy 85.4566; Globulin 3.2 g/dL (1.3-4.6); Glucose 122 mg/dL (65-115); Magnesium 2.1 mg/dL (1.7-2.3); Osmolality Calculated 298 mOsm/kg (285-295); Potassium 4.5 mmol/L (3.5-5.1); Sodium 142 mmol/L (136-145); Total Bilirubin 0.5 mg/dL (0.15-1.2); Total Protein 7.6 g/dL (6.6-8.7)
[2024-06-02 16:41] LABS: Troponin 5 2HR 18.81 ng/L (0-10); Troponin 5 2HR Delta -2.19 ABS# (0-10)
--- NOTE | 2024-06-02 17:23 | ECG_ITS ---
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 [email or web address]
[2024-06-02 17:47] VITALS: BP 141/78; PULSE 83; RESP 16; O2SAT 91
[2024-06-02 18:00] VITALS: BP 139/121; PULSE 84; RESP 16
[2024-06-02 18:16] LABS: Bilirubin Urine Negative (Negative); Blood Urine Negative (Negative); Glucose Urine UA Negative (Normal); Ketones Urine Trace (Negative); Leukocyte Esterase Urine Negative (Negative); Nitrate Urine Negative (Negative); Protein Urine Negative (Negative); Specific Gravity, Urine 1.013 (1.005-1.030); Urine Appearance Clear (CLEAR); Urine Color Yellow (Yellow); pH Urine 5.5 (5-7)
[2024-06-02 18:18] VITALS: RESP 16
[2024-06-02] MEDS: oxyCODONE-APAP 5-325 mg Tablet 1 TAB PO (18:18)
[2024-06-02 18:20] LABS: Add Urine Microscopic? YES; Bacteria Urine None Seen /hpf; Hyaline Casts Urine 0.81 /lpf; RBC Urine 0-2 /hpf (0-2); Squamous Epithelial Cell Urine 0-5 /hpf (0-5); WBC Urine 0-5 /hpf (0-5)
[2024-06-02 18:47] VITALS: BP 136/105; PULSE 94; RESP 16; O2SAT 98
== END 2024-06-02 18:47 | disposition home or self-care (01) ==
PROVIDERS: Emergency Provider Emergency Medicine; PCP Internal Medicine
DX: Z03.89 Encounter for observation for other suspected diseases and conditions ruled out (principal); W19.XXXA Unspecified fall, initial encounter
CPT/HCPCS: 71045; 73522; 80053; 81001; 82550; 83605; 83735; 84484; 85025; 93005; 99285

== ENCOUNTER 2024-08-08 18:29 | Observation (INO) | payer MEDICARE, MEDICAID, SELFPAY ==
--- NOTE | 2024-08-08 18:29 | XRR_ITS ---
PROCEDURE INFORMATION: Exam: XR Right Hip Exam date and time: 08/08/2024 6:54 PM Age: 64 years old Clinical indication: Injury or trauma; Fall; Blunt trauma (contusions or hematomas); Right; Hip TECHNIQUE: Imaging protocol: Radiologic exam of the right hip. Views: 1 view hip with pelvis when performed. COMPARISON: CR XR hip BI 3-4V wo/w pel [id number] 06/02/2024 4:03 PM FINDINGS: Bones/joints: Unremarkable. No acute fracture. Soft tissues: Unremarkable. XR/XR hip RT 2-3V wo/w pel* [id number] IMPRESSION: No acute findings.
--- NOTE | 2024-08-08 18:29 | XRR_ITS ---
PROCEDURE INFORMATION: Exam: XR Chest Exam date and time: 08/08/2024 6:52 PM Age: 64 years old Clinical indication: Injury or trauma; Fall; Blunt trauma (contusions or hematomas) TECHNIQUE: Imaging protocol: Radiologic exam of the chest. Views: 1 view. COMPARISON: CR XR chest 1V portable [id number] 06/02/2024 3:32 PM FINDINGS: Lungs: Unremarkable. No consolidation. Pleural spaces: Unremarkable. No pleural effusion. No pneumothorax. Heart/Mediastinum: Tortuous aorta. No cardiomegaly. Bones/joints: Spinal fusion hardware noted within the lower thoracolumbar spine. Visualized osseous structures are intact. XR/XR chest 1V portable [id number] IMPRESSION: No acute findings.
[2024-08-08 18:34] VITALS: PULSE 82; RESP 18; TEMP 37.1; O2SAT 93; BMI 30.4
--- NOTE | 2024-08-08 18:35 | CTR_ITS ---
PROCEDURE INFORMATION: Exam: CT Head Without Contrast Exam date and time: 08/08/2024 7:08 PM Age: 64 years old Clinical indication: Injury or trauma; Fall; Blunt trauma (contusions or hematomas); Consciousness not specified; Additional info: Fall, head injury TECHNIQUE: Imaging protocol: Computed tomography of the head without contrast. Radiation optimization: All CT scans at this facility use at least one of these dose optimization techniques: automated exposure control; mA and/or kV adjustment per patient size (includes targeted exams where dose is matched to clinical indication); or iterative reconstruction. COMPARISON: CT head wo con* [id number] 04/15/2024 1:17 PM RADIATION DOSE METRICS: Total DLP (mGy-cm): 1209.6 FINDINGS: Brain: No hemorrhage. No edema. 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 No mass effect. Cerebral ventricles: No ventriculomegaly. Paranasal sinuses: Visualized sinuses are unremarkable. No fluid levels. Mastoid air cells: Visualized mastoid air cells are well aerated. Bones: Unremarkable. No acute fracture. Soft tissues: Unremarkable. CT/CT head wo con* [id number] IMPRESSION: No acute intracranial abnormality.
--- NOTE | 2024-08-08 18:35 | XRR_ITS ---
PROCEDURE INFORMATION: Exam: XR Right Femur Exam date and time: 08/08/2024 6:56 PM Age: 64 years old Clinical indication: Injury or trauma; Fall; Blunt trauma; Thigh or upper leg; Right; Additional info: Fall, pain TECHNIQUE: Imaging protocol: Radiologic exam of the right femur. Views: 2 views. COMPARISON: NM bone scan whole body* [id number] 08/25/2023 9:00 AM FINDINGS: Bones/joints: Unremarkable. No acute fracture. Soft tissues: Unremarkable. XR/XR femur RT min 2V* [id number] IMPRESSION: No acute findings.
--- NOTE | 2024-08-08 18:35 | CTR_ITS ---
PROCEDURE INFORMATION: Exam: CT Pelvis Without Contrast, Skeleton Exam date and time: 08/08/2024 7:15 PM Age: 64 years old Clinical indication: Injury or trauma; Fall; Blunt trauma (contusions or hematomas); Right; Hip; Additional info: Traumatic pelvic pain TECHNIQUE: Imaging protocol: Computed tomography of the pelvis without contrast. Exam focused on the skeleton. Radiation optimization: All CT scans at this facility use at least one of these dose optimization techniques: automated exposure control; mA and/or kV adjustment per patient size (includes targeted exams where dose is matched to clinical indication); or iterative reconstruction. COMPARISON: CT ang ches abdpel [id number] 01/14/2022 5:08 PM RADIATION DOSE METRICS: Total DLP (mGy-cm): 827.5 FINDINGS: Bones/joints: The right hip joint is intact. Postsurgical changes of the left proximal femur with cortical thickening which appears chronic. The left femoral hardware demonstrates perihardware lucencies along the fixation nail through the femoral head and neck which is related to loosening. The remaining hardware appears intact. There is no sacroiliac or pubic symphyseal widening. Edema along the left hip subcutaneous area. Soft tissues: Dependent edema along the midline posterior soft tissues. CT/CT pelvis wo con [id number] IMPRESSION: No definite acute displaced fracture. Postsurgical changes of the left femur with lucency around the fixation nail through the femoral head and neck which likely is related to loosening. Please see same-day lumbar spine CT for further findings..
--- NOTE | 2024-08-08 18:35 | CTR_ITS ---
PROCEDURE INFORMATION: Exam: CT Lumbar Spine Without Contrast Exam date and time: 08/08/2024 7:15 PM Age: 64 years old Clinical indication: Injury or trauma; Fall; Blunt trauma (contusions or hematomas); Additional info: Low back pain TECHNIQUE: Imaging protocol: Computed tomography of the lumbar spine without contrast. Radiation optimization: All CT scans at this facility use at least one of these dose optimization techniques: automated exposure control; mA and/or kV adjustment per patient size (includes targeted exams where dose is matched to clinical indication); or iterative reconstruction. COMPARISON: MR lumbar spine wo con* [id number] 10/12/2023 4:36 PM RADIATION DOSE METRICS: Total DLP (mGy-cm): 1134.9 FINDINGS: Bones/joints: Multilevel vertebral body height loss deformities most prominent at L2 and T12. T12 vertebral body with some osseous bowing causing moderate to severe canal stenosis. There appears to be also height loss at additional levels and it is difficult to ascertain the age. There is laminectomy changes at T12. Posterior fusion hardware from T11-S1. There is downward angulation of the right transpedicle screw at L2. Additional downward angulation of additional transpedicle screws for example on bilaterally L3, on the right at L2, on the right at T11,. There is lucency surrounding the transpedicular screws at S1 consistent with some loosening and to a lesser degree bilaterally at L5. Multilevel degenerative facet and degenerative disc changes. Diffusely decreased bone mineralization limits the evaluation of subtle fractures. There are postsurgical ghost tracks through the bilateral SI joints. Kidneys and ureters: Nonobstructing right-sided nephrolithiasis. Soft tissues: Unremarkable. CT/CT lumbar spine wo con* [id number] IMPRESSION: 1. Multiple age indeterminate compression deformities of the lumbar spine given the a more recent comparative CT scan can not be provided. The most recent CT lumbar spine is from October of 2020. Correlation can not be made with prior lumbar spine MRIs given the susceptibility artifact. Correlate with site specific tenderness to assess acuity. 2. Multiple posterior fusion hardware pedicle screws demonstrate angulation. Difficult to exclude that this is from trauma or also chronic. 3. Multilevel degenerative changes of the lumbar spine. There is moderate canal stenosis at the level of T12. 4. There is lucency surrounding the bilateral pedicles at S1 and to a lesser degree at L5 consistent with loosening.
--- NOTE | 2024-08-08 18:35 | CTR_ITS ---
PROCEDURE INFORMATION: Exam: CT Cervical Spine Without Contrast Exam date and time: 08/08/2024 7:08 PM Age: 64 years old Clinical indication: Injury or trauma; Fall; Blunt trauma; Additional info: Fall, neck pain TECHNIQUE: Imaging protocol: Computed tomography of the cervical spine without contrast. Radiation optimization: All CT scans at this facility use at least one of these dose optimization techniques: automated exposure control; mA and/or kV adjustment per patient size (includes targeted exams where dose is matched to clinical indication); or iterative reconstruction. COMPARISON: CT cervical spin wo con* [id number] 04/15/2024 2:35 PM RADIATION DOSE METRICS: Total DLP (mGy-cm): 236.7 FINDINGS: Bones: No acute fracture. Normal alignment. No significant disc bulge or herniation. No severe spinal canal stenosis. No significant neural foraminal narrowing. Lungs: Lung apices are normal. Soft tissues: Unremarkable. CT/CT cervical spin wo con* [id number] IMPRESSION: No acute findings.
--- NOTE | 2024-08-08 18:35 | XRR_ITS ---
PROCEDURE INFORMATION: Exam: XR Right Tibia and Fibula Exam date and time: 08/08/2024 6:59 PM Age: 64 years old Clinical indication: Injury or trauma; Fall; Blunt trauma; Lower leg; Right; Additional info: Fall, pain TECHNIQUE: Imaging protocol: Radiologic exam of the right tibia and fibula. Views: 2 views. COMPARISON: NM bone scan whole body* [id number] 08/25/2023 9:00 AM FINDINGS: Bones/joints: Normal. Soft tissues: Normal. XR/XR tibia fibula RT 2V [id number] IMPRESSION: No acute findings.
--- NOTE | 2024-08-08 18:42 | W.ED.FALL ---
HPI - Fall General: Chief Complaint: Fall Stated Complaint: Fall, RT Hip Pain Time Seen by Provider: 08/08/24 18:32 History of Present Illness: This is a 64-year-old woman with a history of chronic pain syndrome, hypertension and depression who presents to the emergency room after a fall. She says she got a little bit dizzy and lost her balance and fell. She hit her head. She is having head pain, right hip pain, right leg pain. She says her leg hurts all the way down. No loss of consciousness. No altered mental status. No focal motor deficits. No chest pain. No abdominal pain. No fevers. No cough. Related Data Home Medications ?Medication ?Instructions ?Recorded ?Confirmed levothyroxine 50 mcg capsule 50 mcg PO QAM 07/04/19 06/02/24 duloxetine 30 mg capsule,delayed 60 mg PO DAILY 09/10/20 06/02/24 release (Cymbalta) oxybutynin chloride 5 mg tablet See Rx Instructions .Route .COMPLEX 05/23/21 06/02/24 omeprazole 40 mg capsule,delayed 40 mg PO DAILY 07/26/23 06/02/24 release ropinirole 0.5 mg tablet See Rx Instructions .Route .COMPLEX 07/26/23 06/02/24 sumatriptan succinate 100 mg tablet 100 mg PO DAILY PRN Migraine 08/23/23 06/02/24 Headache albuterol sulfate 90 mcg/actuation 2 puff inhalation Q4H PRN Wheezing 04/15/24 06/02/24 aerosol inhaler alendronate 70 mg tablet See Rx Instructions .Route .COMPLEX 04/15/24 06/02/24 cyanocobalamin (vitamin B-12) See Rx Instructions .Route .COMPLEX 04/15/24 06/02/24 1,000 mcg/mL injection solution lisinopril 10 mg tablet 10 mg PO DAILY 04/15/24 06/02/24 oxycodone-acetaminophen 10 mg-325 1 tab PO Q6H PRN Pain 04/15/24 06/02/24 mg tablet atorvastatin 40 mg tablet 40 mg PO QPM 06/02/24 06/02/24 celecoxib 200 mg capsule 200 mg PO BID 06/02/24 06/02/24 Previous Rx's ?Medication ?Instructions ?Recorded baclofen 20 mg tablet 20 mg PO QID PRN spasms 30 days 05/30/20 #120 tabs docusate sodium 100 mg capsule 100 mg PO BID #14 caps 10/20/23 Allergies Allergy/AdvReac Type Severity Reaction Status Date / Time gabapentin Allergy Severe ADR-Halluci Verified 08/08/24 18:37 nating Penicillins Allergy RASH Verified 08/08/24 18:37 Sulfa (Sulfonamide Allergy ANAPHYLAXIS Verified 08/08/24 18:37 Antibiotics) Review of Systems Narrative: Constitutional symptoms: Negative except as documented in HPI. Skin symptoms: Negative except as documented in HPI. Eye symptoms: Negative except as documented in HPI. ENMT symptoms: Negative except as documented in HPI. Respiratory symptoms: Negative except as documented in HPI. Cardiovascular symptoms: Negative except as documented in HPI. Gastrointestinal symptoms: Negative except as documented in HPI. Genitourinary symptoms: Negative except as documented in HPI. Musculoskeletal symptoms: Negative except as documented in HPI. Neurologic symptoms: Negative except as documented in HPI. Psychiatric symptoms: Negative except as documented in HPI. Endocrine symptoms: Negative except as documented in HPI. PFSH ED PFSH: Medical History At risk for polypharmacy Altered mental status Chronic hypertension Diagnosed at the age of 14 and controlled on medication managed by primary care provider. Anxiety and depression Currently on Cymbalta managed by her primary care provider. Hypothyroid Currently on levothyroxine managed by PMD No pertinent past medical history Denies: hypertension, diabetes, heart, lung, liver, kidney, thyroid, genital herpes, bleeding problems, or clotting problems. her primary care provider is Dr. Salazar Chronic low back pain without sciatica Currently on hydrocodone and baclofen managed by the pain clinic Surgical History History of back surgery 10/2020---jef placed in back S/P breast biopsy 2000-left breast-benign History of dental surgery tooth extraction Hx of section 03/26/89 History of ankle surgery 2006--LEFT x3. In [place] Family History Mother Family history of thyroid problem Thyroid disease Diabetes Hypertension Father Brain aneurysm Denies family history of Colon cancer Ovarian cancer DVT (deep venous thrombosis) Heart disease Breast cancer Suicide Pulmonary embolism Uterine cancer Social History Smoking and tobacco/nicotine status: never used tobacco/nicotine Alcohol intake: current Alcohol intake frequency: 0-2 Drinks per Day Substance/Drug Use: never Physical Exam Narrative: EXAM NARRATIVE: General: Alert, no acute distress. Skin: Warm, dry. Head: Normocephalic, atraumatic. Neck: Supple, trachea midline. Eye: Extraocular movements are intact. Ears, nose, mouth and throat: mucosa moist. Cardiovascular: Regular, Normal peripheral perfusion. Respiratory: Lungs are clear to auscultation, respirations are non-labored, breath sounds are equal, Symmetrical chest wall expansion. Gastrointestinal: Soft, Nontender, Non distended Musculoskeletal: Normal ROM, no deformity. No shortening or rotation of the right leg. Neurological: Alert and oriented, No focal neurological deficit observed. Psychiatric: Cooperative, appropriate mood & affect. Course Vital Signs: Vital signs: Vital Signs Temperature 98.7 F 08/08/24 18:34 Pulse Rate 78 08/08/24 20:00 Respiratory Rate 16 08/08/24 20:00 Blood Pressure 137/84 08/08/24 20:00 Pulse Oximetry 96 08/08/24 20:00 Oxygen Delivery Me thod Nasal Cannula 08/08/24 19:37 Oxygen Flow Rate 2 08/08/24 19:37 MDM - Fall Medical Decision Making CT head: No acute intracranial process. no intracranial hemorrhage, no evidence of infarct. no evidence of acute fracture.This was reviewed and interpreted by myself the ER physician. CT of the cervical spine: No fracture. Good alignment. No step-offs. This was reviewed and interpreted by myself the emergency room physician. I also reviewed the radiologist report. CT of the pelvis: No acute fractures. This was reviewed and interpreted by myself the emergency room physician. I also reviewed the radiology report. X-ray of the femur and tib-fib: No acute fractures. This was reviewed and interpreted by myself the emergency room physician. I also reviewed the radiology report. Reassessment: Patient has extreme pain. She is been screaming out with any kind of movement. She says she has waves of pain down her right leg. She is on pain medications at home. Discussed admission for pain control and she agrees. Consultation: I spoke with Dr. Stoll who is on-call for orthopedics and who is familiar with the patient. He will consult. Agrees that admission for pain control is appropriate. Consultation: I spoke with Dr. Jules who is on-call for the hospitalist service who agrees to admission to observation. Assessment and plan: Fall Hip contusion Head injury Chronic pain syndrome Intractable pain Vertebral compression fractures - Zofran in the emergency room along with some Toradol. Multiple doses of Dilaudid. Still with extreme pain with any attempts at movement. -I discussed the patient with the hospitalist on-call who is admitting the patient. - Discussed findings and plan with patient. Answered any questions. - All laboratory values were reviewed and interpreted personally by myself, the ER physician - All imaging was reviewed and interpreted personally by myself, the ER physician. - Evaluation and treatment of this problem were appropriate in the emergency setting Lab Data 08/08/24 18:10 08/08/24 18:10 Radiology Impressions Chest X-Ray 08/08/24 18:29 IMPRESSION: No acute findings. Hip/Pelvis X-Ray 08/08/24 18:29 IMPRESSION: No acute findings. Cervical Spine CT 08/08/24 18:35 IMPRESSION: No acute findings. Femur X-Ray 08/08/24 18:35 IMPRESSION: No acute findings. Head CT 08/08/24 18:35 IMPRESSION: No acute intracranial abnormality. Lumbar Spine CT 08/08/24 18:35 IMPRESSION: 1. Multiple age indeterminate compression deformities of the lumbar spine given the a more recent comparative CT scan can not be provided. The most recent CT lumbar spine is from October of 2020. Correlation can not be made with prior lumbar spine MRIs given the susceptibility artifact. Correlate with site specific tenderness to assess acuity. 2. Multiple posterior fusion hardware pedicle screws demonstrate angulation. Difficult to exclude that this is from trauma or also chronic. 3. Multilevel degenerative changes of the lumbar spine. There is moderate canal stenosis at the level of T12. 4. There is lucency surrounding the bilateral pedicles at S1 and to a lesser degree at L5 consistent with loosening. Pelvis CT 08/08/24 18:35 IMPRESSION: No definite acute displaced fracture. Postsurgical changes of the left femur with lucency around the fixation nail through the femoral head and neck which likely is related to loosening. Please see same-day lumbar spine CT for further findings.. Tibia/Fibula X-Ray 08/08/24 18:35 IMPRESSION: No acute findings. Laboratory Results WBC 7.49 10^3/uL (3.29-11.43) 08/08/24 18:10 RBC 4.27 10^6/uL (3.85-5.65) 08/08/24 18:10 Hgb 12.20 g/dL (11.27-16.99) 08/08/24 18:10 Hct 38.4 % (36-47) 08/08/24 18:10 MCV 89.9 fl (85-98) 08/08/24 18:10 MCH 28.6 pg (27-33) 08/08/24 18:10 MCHC 31.8 g/dL (30-55) 08/08/24 18:10 RDW 13.4 % (12.1-15.1) 08/08/24 18:10 Plt Count 273 10^3/cmm (157-399) 08/08/24 18:10 MPV 10.3 fL (7.4-10.4) 08/08/24 18:10 Neut % (Auto) 65.8 % 08/08/24 18:10 Lymph % (Auto) 23.5 % 08/08/24 18:10 [place] % (Auto) 8.1 % 08/08/24 18:10 Eos % (Auto) 1.6 % 08/08/24 18:10 Baso % (Auto) 0.5 % 08/08/24 18:10 Neut # (Auto) 4.92 10^3/uL (1.8-7.7) 08/08/24 18:10 Lymph # (Auto) 1.8 10^3/uL (0.8-4.8) 08/08/24 18:10 [place] # (Auto) 0.6 10^3/uL (0.2-0.9) 08/08/24 18:10 Eos # (Auto) 0.1 10^3/uL (0.0-0.8) 08/08/24 18:10 Baso # (Auto) 0.0 10^3/uL (0.0-0.1) 08/08/24 18:10 Nucleated RBC % (auto) 0 % 08/08/24 18:10 Nucleated RBCs # 0.0 /100WBC 08/08/24 18:10 Sodium 139 mmol/L (136-145) 08/08/24 18:10 Potassium 4.4 mmol/L (3.5-5.1) 08/08/24 18:10 Chloride 102 mmol/L (98-107) 08/08/24 18:10 Carbon Dioxide 24 mmol/L (22-29) 08/08/24 18:10 Anion Gap 17.4 (5-19) 08/08/24 18:10 BUN 19 mg/dL (8-23) 08/08/24 18:10 Creatinine 0.8 mg/dL (0.5-0.9) 08/08/24 18:10 GFR Calculation 71.8 mL/min (90-130) L 08/08/24 18:10 Glucose 117 mg/dL (65-115) H 08/08/24 18:10 Calculated Osmolality 291 mOsm/kg (285-295) 08/08/24 18:10 Calcium 9.1 mg/dL (8.5-10.5) 08/08/24 18:10 Total Bilirubin 0.4 mg/dL (0.15-1.2) 08/08/24 18:10 AST 21 U/L (0-32) 08/08/24 18:10 ALT 14 U/L (0-33) 08/08/24 18:10 Alkaline Phosphatase 151 U/L (35-105) H 08/08/24 18:10 Total Protein 7.5 g/dL (6.6-8.7) 08/08/24 18:10 Albumin 4.2 g/dL (3.5-5.2) 08/08/24 18:10 Globulin 3.3 g/dL (1.3-4.6) 08/08/24 18:10 All radiology interpretation(s) finalized by discharge Discharge Plan Discharge Patient Disposition: Placed in Observation Clinical Impression: Fall, Head injury, Hip injury, Chronic pain syndrome, Vertebral compression fracture Discharge Diet: Usual diet Discharge Activity: Increase activity as tolerated Coding Level of Care Code ED Educational Programming Director for Jade Gracia
[2024-08-08 18:52] LABS: Basophils % 0.5 %; Eosinophils # 0.1 10^3/uL (0.0-0.8); Eosinophils % 1.6 %; Hematocrit 38.4 % (36-47); Lymphocytes # 1.8 10^3/uL (0.8-4.8); Lymphocytes % 23.5 %; Mean Corpuscular HGB Conc 31.8 g/dL (30-55); Mean Corpuscular Hemoglobin 28.6 pg (27-33); Mean Corpuscular Volume 89.9 fl (85-98); Mean Platelet Volume 10.3 fL (7.4-10.4); Monocytes # 0.6 10^3/uL (0.2-0.9); Monocytes % 8.1 %; Neutrophils # 4.92 10^3/uL (1.8-7.7); Neutrophils % 65.8 %; Nucleated Red Blood Cells % 0 %; Platelet Count 273 10^3/cmm (157-399); Red Blood Count 4.27 10^6/uL (3.85-5.65); Red Cell Distribution Width 13.4 % (12.1-15.1); White Blood Count 7.49 10^3/uL (3.29-11.43)
[2024-08-08 19:06] LABS: Alanine Aminotransferase 14 U/L (0-33); Albumin Level 4.2 g/dL (3.5-5.2); Alkaline Phosphatase 151 U/L (35-105); Anion Gap 17.4 (5-19); Aspartate Amino Transferase 21 U/L (0-32); Blood Urea Nitrogen 19 mg/dL (8-23); Calcium 9.1 mg/dL (8.5-10.5); Carbon Dioxide 24 mmol/L (22-29); Chloride 102 mmol/L (98-107); Creatinine Clr Calc Pharmacy 81.4939; Globulin 3.3 g/dL (1.3-4.6); Glomerular Filtration Rate 71.8 mL/min (90-130); Glucose 117 mg/dL (65-115); Osmolality Calculated 291 mOsm/kg (285-295); Potassium 4.4 mmol/L (3.5-5.1); Sodium 139 mmol/L (136-145); Total Bilirubin 0.4 mg/dL (0.15-1.2); Total Protein 7.5 g/dL (6.6-8.7)
--- NOTE | 2024-08-08 19:30 | ECG_ITS ---
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
[2024-08-08 19:37] VITALS: BP 131/82; PULSE 80; RESP 16; O2SAT 94
[2024-08-08] MEDS: HYDROMORPHONE HCL 0.5 MG/0.5 ML INJ IVP (19:40)
[2024-08-08] MEDS: ondansetron 2 mg/ML SDV 2 mL 4 MG IVP (19:40)
[2024-08-08] MEDS: ketorolac 30 mg/mL INJ IVP (19:41)
[2024-08-08 20:00] VITALS: BP 137/84; PULSE 78; RESP 16; O2SAT 96
[2024-08-08] MEDS: HYDROMORPHONE HCL 0.5 MG/0.5 ML INJ 1 MG IVP (20:15)
[2024-08-08] MEDS: orphenadrine 30 mg/mL Inj 2 mL 60 MG IVP (20:15)
--- NOTE | 2024-08-08 21:25 | PM.HP ---
Providers/Chief Complaint Primary Care Provider: Charity Salazar MD Chief Complaint: Fall, RT Hip Pain History of Present Illness Niki Agosto is a 64 year old female with history of chronic back pain, opioid dependent polypharmacy, follows up with Dr. Stoll, lives alone, presented after sustaining a fall at home. Patient is stating that she fell in her kitchen when she just turned too quickly lost her balance and fell on the ground since then her back pain has been worsened. She has not noticed chest pain, syncopal event or seizure related activity. Workup in the ER revealed normal CBC and BMP, ly scan/trauma scan showed compression fractures. No signs of cauda equina. Dr. Stoll will see her in the morning. Patient cannot go home because she lives alone and her pain is unbearable. Hospitalist was requested to admit her for pain management. Patient at baseline does not use oxygen, currently on 2 L, hemodynamically stable no signs of cauda equina Patient is stating that her daughter is in [place] She has neighbors who help her around She is not interested in residential placement if needed Review of Systems Const: Denies: fever(s) Eyes: Denies: change in vision ENMT: Denies: throat pain GI: Denies: abdominal pain Musc: Reports: back pain Medications/Allergies Home Medications ?Medication ?Instructions ?Recorded ?Confirmed ?Last Taken ?Type levothyroxine 50 mcg capsule 50 mcg PO QAM 07/04/19 06/02/24 2 Days Ago History ~05/01/24 baclofen 20 mg tablet 20 mg PO QID PRN spasms 30 days 05/30/20 06/02/24 1 Day Ago Rx #120 tabs ~05/02/24 duloxetine 30 mg capsule,delayed 60 mg PO DAILY 09/10/20 06/02/24 1 Day Ago History release (Cymbalta) ~05/02/24 oxybutynin chloride 5 mg tablet See Rx Instructions .Route .COMPLEX 05/23/21 06/02/24 1 Day Ago History ~05/02/24 omeprazole 40 mg capsule,delayed 40 mg PO DAILY 07/26/23 06/02/24 1 Day Ago History release ~05/02/24 ropinirole 0.5 mg tablet See Rx Instructions .Route .COMPLEX 07/26/23 06/02/24 1 Day Ago History ~05/02/24 sumatriptan succinate 100 mg tablet 100 mg PO DAILY PRN Migraine 08/23/23 06/02/24 1 Week Ago History Headache ~04/26/24 docusate sodium 100 mg capsule 100 mg PO BID #14 caps 10/20/23 06/02/24 11/12/23 Rx albuterol sulfate 90 mcg/actuation 2 puff inhalation Q4H PRN Wheezing 04/15/24 06/02/24 Unknown History aerosol inhaler alendronate 70 mg tablet See Rx Instructions .Route .COMPLEX 04/15/24 06/02/24 Unknown History cyanocobalamin (vitamin B-12) See Rx Instructions .Route .COMPLEX 04/15/24 06/02/24 Unknown History 1,000 mcg/mL injection solution lisinopril 10 mg tablet 10 mg PO DAILY 04/15/24 06/02/24 1 Day Ago History ~05/02/24 oxycodone-acetaminophen 10 mg-325 1 tab PO Q6H PRN Pain 04/15/24 06/02/24 1 Day Ago History mg tablet ~05/02/24 atorvastatin 40 mg tablet 40 mg PO QPM 06/02/24 06/02/24 Unknown History celecoxib 200 mg capsule 200 mg PO BID 06/02/24 06/02/24 Unknown History Allergies Allergy/AdvReac Type Severity Reaction Status Date / Time gabapentin Allergy Severe ADR-Halluci Verified 08/08/24 18:37 nating Penicillins Allergy RASH Verified 08/08/24 18:37 Sulfa (Sulfonamide Allergy ANAPHYLAXIS Verified 08/08/24 18:37 Antibiotics) PFSH Acute PFSH: Medical History At risk for polypharmacy Altered mental status Chronic hypertension Diagnosed at the age of 14 and controlled on medication managed by primary care provider. Anxiety and depression Currently on Cymbalta managed by her primary care provider. Hypothyroid Currently on levothyroxine managed by PMD No pertinent past medical history Denies: hypertension, diabetes, heart, lung, liver, kidney, thyroid, genital herpes, bleeding problems, or clotting problems. her primary care provider is Dr. Salazar Chronic low back pain without sciatica Currently on hydrocodone and baclofen managed by the pain clinic Surgical History History of back surgery 10/2020---jef placed in back S/P breast biopsy 2000-left breast-benign History of dental surgery tooth extraction Hx of section 03/26/89 History of ankle surgery 2006--LEFT x3. In [place] Family History Mother Family history of thyroid problem Thyroid disease Diabetes Hypertension Father Brain aneurysm Denies family history of Colon cancer Ovarian cancer DVT (deep venous thrombosis) Heart disease Breast cancer Suicide Pulmonary embolism Uterine cancer Social History Smoking and tobacco/nicotine status: never used tobacco/nicotine Alcohol intake: current Alcohol intake frequency: 0-2 Drinks per Day Substance/Drug Use: never Vitals/I&O/Wt Last Vital Signs Temp 98.7 F 08/08/24 18:34 Pulse 78 08/08/24 20:00 Resp 16 08/08/24 20:00 BP 137/84 08/08/24 20:00 Pulse Ox 96 08/08/24 20:00 O2 Del Method Nasal Cannula 08/08/24 19:37 O2 Flow Rate 2 08/08/24 19:37 08/08/24 08/08/24 08/08/24 06:59 14:59 22:59 Intake Total 0 / 0 Balance 0 / 0 Weight last 48 hrs Weight 90.718 kg Physical Exam Narrative: Patient does not show any signs of cauda equina Clinical sign of fluid overload Lower extremity edema Pleasant and cooperative GCS 15 Nonfocal neuroexam Currently on 2 L nasal no audible stridor or wheezing S1, S2 Lower extremity swelling 3+ Swelling extending towards her knees bilaterally Data 08/08/24 18:10 08/08/24 18:10 A&P Assessment and plan (1) Tachyarrhythmia: (2) Bilateral edema of lower extremity: (3) Vertebral compression fracture: (4) S/P spinal fusion: (5) Lumbar radiculopathy: (6) Pain in both lower extremities: Plan Multiple compression fractures Excruciating pain No sign of cauda equina Dr. Stoll to see evaluate the patient in the morning I will request TLSO brace and physical therapy Continue opioids and bowel regimen Significant swelling of lower extremity Will request D-dimer If D-dimer comes back I will do thromboembolic disease screening with CT chest and venous Doppler Currently requiring 2 L, does not use oxygen at home No active chest pain Preserve ejection fraction heart failure exacerbation EF 65% I will start patient on gentle diuresis Does not take Lasix at home Patient is opioid dependent because of chronic back pain Judicious use of muscle relaxant with opioids Patient suffering from polypharmacy Full code Cardiac diet DVT prophylaxis Lovenox Continue levothyroxine Patient lives alone stating that her daughter is in [place], she has neighbors who help her around, she is not interesting in residential placement if needed Reevaluate after physical therapy in the morning PDMP PDMP Reviewed: Not Reviewed Attestations Medical Necessity Statement*: Anticipating discharge within 48 hours Diagnoses Tachyarrhythmia R00.0 Bilateral edema of lower extremity R60.0 Vertebral compression fracture M48.50XA S/P spinal fusion Z98.1 Lumbar radiculopathy M54.16 Pain in both lower extremities M79.604; M79.605
[2024-08-08 21:30] VITALS: BP 132/79; PULSE 80; RESP 18; O2SAT 97
[2024-08-08 23:00] VITALS: BP 142/81; PULSE 75; RESP 20; O2SAT 96
[2024-08-08] MEDS: ropinirole 0.25 mg Tablet PO (23:52)
[2024-08-09] VITALS (12 sets, daily range): BP systolic 121–153; BP diastolic 68–99; PULSE 62–111; RESP 16–17; O2SAT 83–98
[2024-08-09 00:06] LABS: D Dimer 1.43 ug/mLFEU (0-0.59)
[2024-08-09 00:12] LABS: Bilirubin Urine Negative (Negative); Blood Urine Negative (Negative); Glucose Urine UA Negative (Normal); Ketones Urine Trace (Negative); Leukocyte Esterase Urine Negative (Negative); Nitrate Urine Negative (Negative); Protein Urine Negative (Negative); Specific Gravity, Urine 1.017 (1.005-1.030); Urine Appearance Clear (CLEAR); Urine Color Yellow (Yellow); pH Urine 5.5 (5-7)
[2024-08-09 00:22] LABS: NT Pro B Type Natriuretic Pept 91 pg/mL (0-125)
[2024-08-09 00:25] LABS: Bacteria Urine TRACE /hpf; Hyaline Casts Urine 0-4 /lpf; RBC Urine 0-4 /hpf (0-2)
[2024-08-09] MEDS: HYDROMORPHONE HCL 0.5 MG/0.5 ML INJ 0.4 MG IVP (01:30)
[2024-08-09] MEDS: oxyCODONE-APAP 10-325 mg Tablet 1 TAB PO ×2 (01:31→09:43)
[2024-08-09] MEDS: HYDROMORPHONE HCL 0.5 MG/0.5 ML INJ 1 MG IVP (04:46)
[2024-08-09 05:18] LABS: Blood Urea Nitrogen 21 mg/dL (8-23); Calcium 8.6 mg/dL (8.5-10.5); Carbon Dioxide 26 mmol/L (22-29); Chloride 104 mmol/L (98-107); Creatinine Clr Calc Pharmacy 81.4939; Glomerular Filtration Rate 71.8 mL/min (90-130); Glucose 116 mg/dL (65-115); Osmolality Calculated 298 mOsm/kg (285-295); Sodium 142 mmol/L (136-145)
[2024-08-09 05:19] LABS: Magnesium 1.8 mg/dL (1.7-2.3)
[2024-08-09] MEDS: levothyroxine 50 mcg Tablet PO (06:31)
[2024-08-09] MEDS: FUROsemide 10 mg/mL SDV 2mL 20 MG IVP (07:01)
[2024-08-09] MEDS: baclofen 10 mg Tablet PO ×2 (09:08→15:25)
[2024-08-09] MEDS: enoxaparin 40 mg/0.4 mL Syringe SUBCUT (09:09)
--- NOTE | 2024-08-09 12:09 | P.PN_ITS ---
Subjective 2 Subjective: Patient reports her back pain is currently improved. We are awaiting orthopedics spine surgical evaluation. She denies other new complaints. Medications: Reviewed: Yes Vitals/I&O/Wt Last Vital Signs Temp 98.7 F 08/08/24 18:34 Pulse 98 08/09/24 08:37 Resp 17 08/09/24 09:43 BP 131/74 08/09/24 08:30 Pulse Ox 93 08/09/24 08:37 O2 Del Method Room Air 08/09/24 08:37 O2 Flow Rate 2 08/09/24 08:30 08/08/24 08/09/24 08/09/24 22:59 06:59 14:59 Intake Total 0 / 0 Balance 0 / 0 Weight last 48 hrs Weight 90.718 kg Physical Exam 2 Narrative: General: Patient is awake and alert. Head: Normocephalic. Atraumatic. EOM intact. Neck: No JVD. Cardiovascular: RRR. No gallops. No murmurs. Lungs: Clear to auscultation, no use of accessory muscles, no crackles or wheezes. Skin: No jaundice. No rashes. Abdomen: Normal bowel sounds, abdomen soft and nontender. Extremities: No cyanosis or clubbing. Musculoskeletal: No swollen or erythematous joints. Neurological: Moves all 4 extremities. No myoclonus. Data 08/08/24 18:10 08/09/24 04:40 A&P Assessment and plan (1) Tachyarrhythmia: (2) Bilateral edema of lower extremity: (3) Vertebral compression fracture: (4) S/P spinal fusion: (5) Lumbar radiculopathy: (6) Pain in both lower extremities: Plan Multiple compression fractures Continue current pain regiment Not interested in fci placement Orthopedic spine to see, awaiting their assessment Patient does not need surgical intervention now, we will plan to discharge Peripheral edema Acute on chronic HFpEF exacerbation US doppler neg for DVT Continue Lasix Hypothyroid Continue Synthroid Hypertension Continue home antihypertensives GERD PPI PDMP PDMP Reviewed: Not Reviewed Attestations 2 Medical Necessity Statement*: Patient requires ongoing hospitalization while awaiting orthopedic surgery recommendations, pain control, diuresis, and supportive care. Coding Level of Care Code Acute Code for [facility] Fwd Diagnoses Tachyarrhythmia R00.0 Bilateral edema of lower extremity R60.0 Vertebral compression fracture M48.50XA S/P spinal fusion Z98.1 Lumbar radiculopathy M54.16 Pain in both lower extremities M79.604; M79.605
--- NOTE | 2024-08-09 14:23 | PM.CONSULT ---
Providers/Reason For Consult Consulting Physician/Specialty*: Hospitalist Reason for Consult*: Back and right leg. Attending Physician: Raj Boyer MD Primary Care Provider: Charity Salazar MD History of Present Illness History of Present Illness Niki Agosto is a 64 year old female fell down in her kitchen last night sustained injury to her back and leg is in severe pain. Saw her today pain significant proved overnight. Feels like she is able to go home. Review of Systems Const: Denies: fever(s) Eyes: Denies: change in vision ENMT: Denies: throat pain GI: Denies: abdominal pain Musc: Reports: back pain Medications/Allergies Home Medications ?Medication ?Instructions ?Recorded ?Confirmed ?Last Taken ?Type levothyroxine 50 mcg capsule 50 mcg PO QAM 07/04/19 08/09/24 08/08/24 History baclofen 20 mg tablet 20 mg PO QID PRN spasms 30 days 05/30/20 08/09/24 08/08/24 Rx #120 tabs duloxetine 30 mg capsule,delayed 60 mg PO DAILY 09/10/20 08/09/24 08/08/24 History release (Cymbalta) omeprazole 40 mg capsule,delayed 40 mg PO DAILY 07/26/23 08/09/24 08/08/24 History release ropinirole 0.5 mg tablet 0.5 mg PO BEDTIME 07/26/23 08/09/24 08/08/24 History sumatriptan succinate 100 mg tablet See Rx Instructions .Route 08/23/23 08/09/24 1 Week Ago History .COMPLEX PRN Migraine Headache ~04/26/24 albuterol sulfate 90 mcg/actuation 2 puff inhalation Q4H PRN Wheezing 04/15/24 08/09/24 Unknown History aerosol inhaler alendronate 70 mg tablet See Rx Instructions .Route .COMPLEX 04/15/24 08/09/24 08/05/24 History lisinopril 10 mg tablet 10 mg PO DAILY 04/15/24 08/09/24 08/08/24 History oxycodone-acetaminophen 10 mg-325 1 tab PO Q6H PRN Pain 04/15/24 08/09/24 08/08/24 History mg tablet celecoxib 200 mg capsule 200 mg PO BID 06/02/24 08/09/24 08/08/24 History aspirin 325 mg tablet (Yevgeniy 650 mg PO Q6H PRN Fever Or Pain 08/09/24 08/09/24 08/08/24 History Aspirin) multivitamin with minerals-folic 1 tab PO DAILY 08/09/24 08/09/24 08/08/24 History acid 0.4 mg tablet naloxone 4 mg/actuation nasal spray See Rx Instructions .Route .COMPLEX 08/09/24 08/09/24 Unknown History ropinirole 0.25 mg tablet 0.25 mg PO DAILY 08/09/24 08/09/24 08/08/24 History sumatriptan succinate 50 mg tablet See Rx Instructions .Route .COMPLEX 08/09/24 08/09/24 Unknown History Allergies Allergy/AdvReac Type Severity Reaction Status Date / Time gabapentin Allergy Severe ADR-Halluci Verified 08/08/24 18:37 nating Penicillins Allergy RASH Verified 08/08/24 18:37 Sulfa (Sulfonamide Allergy ANAPHYLAXIS Verified 08/08/24 18:37 Antibiotics) Current Medications Generic Name Dose Route Start Last Admin Trade Name Freq PRN Reason Stop Dose Admin Baclofen 10 mg 08/09/24 09:00 08/09/24 09:08 Baclofen 10 Mg Tablet PO 10 mg TID VERONICA Administration Enoxaparin Sodium 40 mg 08/09/24 09:00 08/09/24 09:09 Enoxaparin 40 Mg/0.4 Ml Syringe SUBCUT 40 mg Q24H VERONICA Administration Furosemide 20 mg 08/09/24 07:00 08/09/24 07:01 Furosemide 10 Mg/Ml Sdv 2ml IVP 20 mg Q24H VERONICA Administration Hydromorphone HCl 0.4 mg 08/08/24 23:15 08/09/24 01:30 Hydromorphone Hcl 0.5 Mg/0.5 Ml Inj IVP 0.4 mg Q8H PRN Administration back pain Levothyroxine Sodium 50 mcg 08/09/24 06:00 08/09/24 06:31 Levothyroxine 50 Mcg Tablet PO 50 mcg QAM VERONICA Administration Oxycodone/Acetaminophen 1 tab 08/08/24 23:06 08/09/24 09:43 Oxycodone-Apap 10-325 Mg Tablet PO 1 tab Q3H PRN Administration back pain Ropinirole HCl 0.25 mg 08/08/24 23:15 08/08/24 23:52 Ropinirole 0.25 Mg Tablet PO 0.25 mg BEDTIME VERONICA Administration Senna/Docusate Sodium 2 tab 08/09/24 09:00 08/09/24 09:08 Sennosides-Docusate Tablet PO Not Given BID VERONICA PFSH Acute PFSH: Medical History At risk for polypharmacy Altered mental status Chronic hypertension Diagnosed at the age of 14 and controlled on medication managed by primary care provider. Anxiety and depression Currently on Cymbalta managed by her primary care provider. Hypothyroid Currently on levothyroxine managed by PMD No pertinent past medical history Denies: hypertension, diabetes, heart, lung, liver, kidney, thyroid, genital herpes, bleeding problems, or clotting problems. her primary care provider is Dr. Salazar Chronic low back pain without sciatica Currently on hydrocodone and baclofen managed by the pain clinic Surgical History History of back surgery 10/2020---jef placed in back S/P breast biopsy 2000-left breast-benign History of dental surgery tooth extraction Hx of section 03/26/89 History of ankle surgery 2006--LEFT x3. In [place] Family History Mother Family history of thyroid problem Thyroid disease Diabetes Hypertension Father Brain aneurysm Denies family history of Colon cancer Ovarian cancer DVT (deep venous thrombosis) Heart disease Breast cancer Suicide Pulmonary embolism Uterine cancer Social History Smoking and tobacco/nicotine status: never used tobacco/nicotine Alcohol intake: current Alcohol intake frequency: 0-2 Drinks per Day Substance/Drug Use: never Vitals/I&O/Wt Last Vital Signs Temp 98.7 F 08/08/24 18:34 Pulse 98 08/09/24 08:37 Resp 17 08/09/24 09:43 BP 131/74 08/09/24 08:30 Pulse Ox 93 08/09/24 08:37 O2 Del Method Room Air 08/09/24 08:37 O2 Flow Rate 2 08/09/24 08:30 0208/09/24 08/09/24 22:59 06:59 14:59 Intake Total 0 / 0 Balance 0 / 0 Weight last 48 hrs Weight 200 lb Physical Exam Narrative: Alert and oriented x 3 Head is normocephalic atraumatic Respirations are intact No evidence of any rashes or infection 5/5 strength in bilateral upper and lower extremities Sensation intact in all extremities Data 08/08/24 18:10 08/09/24 04:40 A&P Assessment and plan (1) Fall: Patient is feeling much better after the fall. Likely just flared up on her back due to having fusion. Will have her follow-up in clinic in 1 week to reevaluate her. Qualifiers: Encounter type: initial encounter Qualified Code(s): W19.XXXA - Unspecified fall, initial encounter PDMP PDMP Reviewed: Not Reviewed Consult Attestations Medical Necessity Statement: Per primary service Coding Level of Care Code Acute Code for Chg Fwd Diagnoses Fall W19.XXXA Encounter type: initial encounter
--- NOTE | 2024-08-09 14:25 | PC.NURSE ---
THIS NURSE NOTIFIED BY [employer] THAT SHE WANTED TO SPEAK WITH SURGEON AGAIN. PT WAS EDUCATED BY THIS NURSE THAT THE ORTHOPEDIC SURGEON DID NOT FEEL LIKE PT NEEDED TO STAY INPATIENT AND WOULD SEE HER OUTPATIENT. PT VERBALIZED UNDERSTANDING.
--- NOTE | 2024-08-09 14:37 | PM.DCS ---
Discharge Providers Date of Admission: 08/08/24 21:23 Date of Discharge: August 09, 2024 Attending Provider at Admission: Marguerite Jules MD Attending Provider at Discharge: Raj Boyer MD Primary Care Provider: Charity Salazar MD Diagnoses at Discharge Discharge Diagnosis (1) Fall: Status: Acute Qualifiers: Encounter type: initial encounter Qualified Code(s): W19.XXXA - Unspecified fall, initial encounter Reason for Visit Reason for Visit: Fall, RT Hip Pain Hospital Course Hospital Course Niki Agosto is a 64 year old female with history of chronic back pain, opioid dependent polypharmacy, follows up with Dr. Stoll, lives alone, presented after sustaining a fall at home. She was treated with analgesics with improvement in symptomatology. Orthopedic spine surgery was consulted and evaluated the patient. They recommended clinic follow-up in 1 week to assess symptomatology. Patient was discharged home in stable condition. No medication changes. She is to see her primary within 1 week for ongoing care as well. Physical Exam Narrative: General: Patient is awake and alert. Head: Normocephalic. Atraumatic. EOM intact. Neck: No JVD. Cardiovascular: RRR. No gallops. No murmurs. Lungs: Clear to auscultation, no use of accessory muscles, no crackles or wheezes. Skin: No jaundice. No rashes. Abdomen: Normal bowel sounds, abdomen soft and nontender. Extremities: No cyanosis or clubbing. Musculoskeletal: No swollen or erythematous joints. Neurological: Moves all 4 extremities. No myoclonus. Discharge Data Studies Completed and Pending Completed Studies During Hospitalization Category Date Time Status CT cervical spin wo con* [id number] Stat Cat Scan 08/08/24 18:[address] head wo con* [id number] Stat Cat Scan 08/08/24 18:[address] lumbar spine wo con* [id number] Stat Cat Scan 08/08/24 18:[address] pelvis wo con [id number] Stat Cat Scan 08/08/24 18:35 Completed CXRP [XR chest 1V portable [id number]] Stat Exams 08/08/24 18:29 Completed XR femur RT min 2V* [id number] Stat Exams 08/08/24 18:35 Completed XR hip RT 2-3V wo/w pel* [id number] Stat Exams 08/08/24 18:29 Completed XR tibia fibula RT 2V [id number] Stat Exams 08/08/24 18:35 [place] [id number] Routine Ultrasound 08/09/24 23:11 Completed Radiology Impressions Chest X-Ray 08/08/24 18:29 IMPRESSION: No acute findings. Hip/Pelvis X-Ray 08/08/24 18:29 IMPRESSION: No acute findings. Cervical Spine CT 08/08/24 18:35 IMPRESSION: No acute findings. Femur X-Ray 08/08/24 18:35 IMPRESSION: No acute findings. Head CT 08/08/24 18:35 IMPRESSION: No acute intracranial abnormality. Lumbar Spine CT 08/08/24 18:35 IMPRESSION: 1. Multiple age indeterminate compression deformities of the lumbar spine given the a more recent comparative CT scan can not be provided. The most recent CT lumbar spine is from October of 2020. Correlation can not be made with prior lumbar spine MRIs given the susceptibility artifact. Correlate with site specific tenderness to assess acuity. 2. Multiple posterior fusion hardware pedicle screws demonstrate angulation. Difficult to exclude that this is from trauma or also chronic. 3. Multilevel degenerative changes of the lumbar spine. There is moderate canal stenosis at the level of T12. 4. There is lucency surrounding the bilateral pedicles at S1 and to a lesser degree at L5 consistent with loosening. Pelvis CT 08/08/24 18:35 IMPRESSION: No definite acute displaced fracture. Postsurgical changes of the left femur with lucency around the fixation nail through the femoral head and neck which likely is related to loosening. Please see same-day lumbar spine CT for further findings.. Tibia/Fibula X-Ray 08/08/24 18:35 IMPRESSION: No acute findings. Venous Duplex 08/09/24 23:11 IMPRESSION: No evidence of deep vein thrombosis. Laboratory Results WBC 7.49 10^3/uL (3.29-11.43) 08/08/24 18:10 RBC 4.27 10^6/uL (3.85-5.65) 08/08/24 18:10 Hgb 12.20 g/dL (11.27-16.99) 08/08/24 18:10 Hct 38.4 % (36-47) 08/08/24 18:10 MCV 89.9 fl (85-98) 08/08/24 18:10 MCH 28.6 pg (27-33) 08/08/24 18:10 MCHC 31.8 g/dL (30-55) 08/08/24 18:10 RDW 13.4 % (12.1-15.1) 08/08/24 18:10 Plt Count 273 10^3/cmm (157-399) 08/08/24 18:10 MPV 10.3 fL (7.4-10.4) 08/08/24 18:10 Neut % (Auto) 65.8 % 08/08/24 18:10 Lymph % (Auto) 23.5 % 08/08/24 18:10 [place] % (Auto) 8.1 % 08/08/24 18:10 Eos % (Auto) 1.6 % 08/08/24 18:10 Baso % (Auto) 0.5 % 08/08/24 18:10 Neut # (Auto) 4.92 10^3/uL (1.8-7.7) 08/08/24 18:10 Lymph # (Auto) 1.8 10^3/uL (0.8-4.8) 08/08/24 18:10 [place] # (Auto) 0.6 10^3/uL (0.2-0.9) 08/08/24 18:10 Eos # (Auto) 0.1 10^3/uL (0.0-0.8) 08/08/24 18:10 Baso # (Auto) 0.0 10^3/uL (0.0-0.1) 08/08/24 18:10 Nucleated RBC % (auto) 0 % 08/08/24 18:10 Nucleated RBCs # 0.0 /100WBC 08/08/24 18:10 D-Dimer 1.43 ug/mLFEU (0-0.59) H 08/08/24 18:10 Sodium 142 mmol/L (136-145) 08/09/24 04:40 Potassium 4.0 mmol/L (3.5-5.1) 08/09/24 04:40 Chloride 104 mmol/L (98-107) 08/09/24 04:40 Carbon Dioxide 26 mmol/L (22-29) 08/09/24 04:40 Anion Gap 16.0 (5-19) 08/09/24 04:40 BUN 21 mg/dL (8-23) 08/09/24 04:40 Creatinine 0.8 mg/dL (0.5-0.9) 08/09/24 04:40 GFR Calculation 71.8 mL/min (90-130) L 08/09/24 04:40 Glucose 116 mg/dL (65-115) H 08/09/24 04:40 Calculated Osmolality 298 mOsm/kg (285-295) H 08/09/24 04:40 Calcium 8.6 mg/dL (8.5-10.5) 08/09/24 04:40 Magnesium 1.8 mg/dL (1.7-2.3) 08/09/24 04:40 Total Bilirubin 0.4 mg/dL (0.15-1.2) 08/08/24 18:10 AST 21 U/L (0-32) 08/08/24 18:10 ALT 14 U/L (0-33) 08/08/24 18:10 Alkaline Phosphatase 151 U/L (35-105) H 08/08/24 18:10 NT-Pro-B Natriuret Pep 91 pg/mL (0-125) 08/08/24 18:10 Total Protein 7.5 g/dL (6.6-8.7) 08/08/24 18:10 Albumin 4.2 g/dL (3.5-5.2) 08/08/24 18:10 Globulin 3.3 g/dL (1.3-4.6) 08/08/24 18:10 Urine Color Yellow (Yellow) 08/09/24 00:00 Urine Appearance Clear (CLEAR) 08/09/24 00:00 Urine pH 5.5 (5-7) 08/09/24 00:00 Ur Specific [place] 1.017 (1.005-1.030) 08/09/24 00:00 Urine Protein Negative (Negative) 08/09/24 00:00 Urine Glucose (UA) Negative (Normal) 08/09/24 00:00 Urine Ketones Trace (Negative) 08/09/24 00:00 Urine Blood Negative (Negative) 08/09/24 00:00 Urine Nitrate Negative (Negative) 08/09/24 00:00 Urine Bilirubin Negative (Negative) 08/09/24 00:00 Urine Urobilinogen 1.0 mg/dL (Negative) 08/09/24 00:00 Ur Leukocyte Esterase Negative (Negative) 08/09/24 00:00 Urine RBC 0-4 /hpf (0-2) H 08/09/24 00:00 Urine WBC None /hpf (0-5) 08/09/24 00:00 Ur Squamous Epith Cells 5-10 /hpf (0-5) H 08/09/24 00:00 Amorphous Sediment Not Reportable 08/09/24 00:00 Urine Bacteria Trace /hpf (NONE) 08/09/24 00:00 Hyaline Casts 0-4 /lpf H 08/09/24 00:00 Vitals Last Vital Signs Temp 98.7 F 08/08/24 18:34 Pulse 98 08/09/24 08:37 Resp 17 08/09/24 09:43 BP 131/74 08/09/24 08:30 Pulse Ox 93 08/09/24 08:37 O2 Del Method Room Air 08/09/24 08:37 O2 Flow Rate 2 08/09/24 08:30 Discharge Plan Discharge Patient Disposition: Home Condition: Stable Prescriptions: No Action baclofen 20 mg tablet 20 mg PO QID PRN (Reason: spasms) 30 Days Qty: 120 1RF levothyroxine 50 mcg capsule 50 mcg PO QAM duloxetine [Cymbalta] 30 mg capsule,delayed release(DR/EC) 60 mg PO DAILY omeprazole 40 mg capsule,delayed release(DR/EC) 40 mg PO DAILY ropinirole 0.5 mg tablet 0.5 mg PO BEDTIME sumatriptan succinate 100 mg tablet See Rx Instructions .ROUTE .COMPLEX PRN (Reason: Migraine Headache) Rx Instructions: TAKE 1 TABLET BY MOUTH at ONSET of headache, MAY REPEAT ONCE in 24 hours aspirin [Yevgeniy Aspirin] 325 mg Tablet 650 mg PO Q6H PRN (Reason: Fever Or Pain) sumatriptan succinate 50 mg tablet See Rx Instructions .ROUTE .COMPLEX Rx Instructions: TAKE 1 TABLET BY MOUTH at ONSET of headache, MAY REPEAT ONCE in 24 hours ropinirole 0.25 mg tablet 0.25 mg PO DAILY multivit with min-folic acid [Daily Multiple For Women 50+] 0.4 mg Tablet 1 tab PO DAILY naloxone 4 mg/actuation spray,non-aerosol See Rx Instructions .ROUTE .COMPLEX Rx Instructions: intranasally ;CALL 911. Use one full spray in one nostril one time. Repeat every 2-3 minutes as needed if no or minimal response. alendronate 70 mg tablet See Rx Instructions .ROUTE .COMPLEX Rx Instructions: 70 mg orally by mouth every week oxycodone-acetaminophen 10-325 mg tablet 1 tab PO Q6H MDD 4 PRN (Reason: Pain) lisinopril 10 mg tablet 10 mg PO DAILY albuterol sulfate 90 mcg/actuation HFA aerosol inhaler 2 puff INHALATION Q4H PRN (Reason: Wheezing) celecoxib 200 mg capsule 200 mg PO BID Discharge Orders: Discharge Order (Routine); Ordered 08/09/24 Ordered By: Raj Boyer Other Ambulatory Orders: DME: Oxygen (Order) Location: None Selected Ordered By: Raj Boyer Referrals: Charity Salazar MD [Primary Care Provider] - Cristian Stoll DO [Physician] - 7-10 days (Call for an appoint with Dr. Stoll if her back pain persist.) Discharge Diet: Usual diet Discharge Activity: Increase activity as tolerated Patient Instructions: Fall Prevention (ED), Opioid Safety, Pain Management Activity Restrictions/Additional Instructions: Follow-up with the clinic in 1 week Thank you for choosing [facility] for your healthcare needs today. Please realize this is an emergency room and that we are providing you with a medical screening exam and this may not be complete and all inclusive of all the testing and or work up that you may need to determine your ailment or severity of your illness. You have been screened and evaluated and felt safe for discharge. Health conditions do change or evolve sometimes and as such it is important that you follow up with your Primary Doctor to be re checked, 3-5 days is a general good time frame for follow up. You are always welcome to return to the ED for re assessment if your symptoms are worsening or you have new concerns Plan of Treatment: 1. Take medications as prescribed. 2. You received pain medication while admitted. No driving or operating machinery for at least 24 hours after receiving any pain medications. 3. Follow-up with orthopedic spine as directed by Dr. Stoll. 4. Follow-up with PCP within 1 week. Discharge Attestations Time Spent in Discharge Care*: greater than 30 min Quality Metrics Clinical Quality Measures [ No reported AMI, CVA or VTE this stay] Coding Level of Care Code Acute Code for Chg Fwd Diagnoses Fall W19.XXXA Encounter type: initial encounter
--- NOTE | 2024-08-09 15:30 | PC.NURSE ---
THIS NURSE WENT INTO PT ROOM TO ASSESS PT DUE TO OXYGEN SATURATION DROPPING INTO THE 80S. PT WAS SLEEPING AND WAS DIFFICULTY TO AROUSE. PT RESPONDED TO LOUD VERBAL COMMUNICATION. DR. BARRERA NOTIFIED OF PT OXYGEN LEVELS ON 2L. DR. BARRERA NOTIFIED PT STATES SHE DOES NOT TYPICALLY WEAR OXYGEN AT HOME. VERBAL ORDERS FROM DR. BARRERA TO TAKE PT OFF OF THE OXYGEN TO DO A TRIAL FOR POSSIBLE HOME OXYGEN. WHEN THIS NURSE WENT BACK INTO PT ROOM, BUT WAS AT 82% ON 2L AND WAS NOT OPENING EYE TO VERBAL STIMULI. CHARGE NURSE, ARUNA WARD, CAME INTO PT ROOM AND TRIED TO WAKE PT UP WITH VERBAL STIMULATION. PT DID NOT RESPOND. PT WAS STERNAL RUBBED BY ARUNA WARD. PT AWOKE TO STERNAL RUB AND STATED I AM JUST A HEAVY SLEEPER. I WOULD HAVE RESPONDED TO YOU TALKING TO ME. THIS NURSE AND ARUNA WARD, EDUCATED PT THAT VERBAL STIMULI WAS USED FIRST WITH NO RESPONSE. PT WAS ABLE TO ANSWER ALL QUESTIONS APPROPRIATELY AFTER THE STERNAL RUB. PT PLACED ON ROOM AIR WHILE AWAKE TO SEE HOW PT OXYGEN SATURATIONS DO.
--- NOTE | 2024-08-09 15:50 | PC.NURSE ---
Call to Dr. Boyer requesting he come see the patient before nursing proceeds with discharge. Reported that pt is 88% on 2LO2 via NC and that she went to 77% on RA prior to that. Dr. Boyer said to not give any other pain meds at this time. Dr. Boyer says he will be here shortly to see the patient.
[2024-08-09] MEDS: naloxone 0.4 mg/ml SDV 0.2 MG IVP (16:02)
--- NOTE | 2024-08-09 17:48 | PC.NURSE ---
[employer] DR[employer] TRUCK DRIVERSHIRA LEAHY, NOTIFIED THIS NURSE THAT PT WAS ABLE TO TRANSFER TO THE BEDSIDE COMMODE AND REQUESTED TO SPEAK TO THIS NURSE. THIS NURSE WENT TO SPEAK TO PT. PT WAS ASKING QUESTIONS REGARDING DISCHARGE. PT EDUCATED THAT PT TILA NIÑO, WAS ON THE WAY. PT WAS EDUCATED THAT THE DR HAD DISCONTINUED HER INPATIENT PAIN MEDICATION DUE TO MENTATION CHANGES EARLY. PT VERBALIZED UNDERSTANDING. PT WAS EDUCATED ON THE NEED TO FOLLOW UP WITH ORTHOPEDICS WITHIN A WEEK AND TO USE HER WALKER ORDERED. PT VERBALIZED UNDERSTANDING AND THANKED THIS NURSE FOR EDUCATING HER. PT WAS ALSO GIVEN HOME OXYGEN TO USE AND EDUCATED BY [employer] EMPLOYEE, HUMAIRA.
--- NOTE | 2024-08-09 23:11 | USR_ITS ---
PROCEDURE INFORMATION: Exam: US Duplex Lower Extremity Veins, Bilateral Exam date and time: 08/09/2024 1:24 AM Age: 64 years old Clinical indication: Edema, localized; Upper extremity, bilateral; Prior surgery; Surgery date: 1-6 months; Surgery type: Left hip surgery May 2024; 3+ pitting edema ble; Additional info: Swelling TECHNIQUE: Imaging protocol: Real-time duplex ultrasound of the bilateral extremities with 2-D simmons scale, color Doppler flow and spectral waveform analysis including responses to compression and other maneuvers (when performed) with image documentation. Complete exam focused on the lower extremity veins. COMPARISON: CT pelvis wo con [id number] 08/08/2024 7:15 PM FINDINGS: Right deep veins: Unremarkable. The common femoral, femoral, proximal profunda femoral and popliteal veins are patent without thrombus. Normal Doppler waveforms. Normal compressibility and/or augmentation response. Left deep veins: Unremarkable. The common femoral, femoral, proximal profunda femoral and popliteal veins are patent without thrombus. Normal Doppler waveforms. Normal compressibility and/or augmentation response. Superficial veins: Greater saphenous veins at the saphenofemoral junctions are patent bilaterally without thrombus. Soft tissues: Unremarkable. US/[place] [id number] IMPRESSION: No evidence of deep vein thrombosis.
--- NOTE | 2024-08-10 08:43 | PC.SOCIAL ---
CM spoke to Vanessa in ER and she states she ordered the patients oxygen from HOME and patient did receive before discharging.
== END 2024-08-09 18:20 | disposition home or self-care (01) ==
LOC: ER 21:06 → ER IP 22:54 → MEDSURG 08-09 15:08 → ER IP 08-09 15:32
PROVIDERS: Admitting Provider Internal Medicine; Emergency Provider Emergency Medicine; PCP Internal Medicine; Visit Provider Internal Medicine
DX: M48.50XA Collapsed vertebra, not elsewhere classified, site unspecified, initial encounter for fracture (principal); S09.90XA Unspecified injury of head, initial encounter; G89.4 Chronic pain syndrome; F32.A Depression, unspecified; W01.0XXA Fall on same level from slipping, tripping and stumbling without subsequent striking against object, initial encounter; Z79.899 Other long term (current) drug therapy; Z79.890 Hormone replacement therapy; Z88.0 Allergy status to penicillin; Z88.2 Allergy status to sulfonamides; Z88.8 Allergy status to other drugs, medicaments and biological substances; E03.9 Hypothyroidism, unspecified; F41.9 Anxiety disorder, unspecified; R00.0 Tachycardia, unspecified; Z98.1 Arthrodesis status; M54.16 Radiculopathy, lumbar region; I50.33 Acute on chronic diastolic (congestive) heart failure; Z79.891 Long term (current) use of opiate analgesic; M79.604 Pain in right leg; M79.605 Pain in left leg; K21.9 Gastro-esophageal reflux disease without esophagitis; I11.0 Hypertensive heart disease with heart failure
CPT/HCPCS: 70450; 71045; 72125; 72131; 72192; 73502; 73552; 73590; 80048; 80053; 81001; 83735; 83880; 85025; 85378; 93005; 93970; 94760; 96372; 96374; 96375; 96376; 99285; G0378; J1171; J1650; J1885; J1940; J2310; J2360; J2405

== ENCOUNTER → 2024-08-17 15:24 | Outpatient (BNVA) | payer MEDICARE, MEDICAID, SELFPAY | PROVIDERS: PCP Internal Medicine; Visit Provider Orthopaedic Surgery | DX: Z09 Encounter for follow-up examination after completed treatment for conditions other than malignant neoplasm (principal); M54.50 Low back pain, unspecified; M25.511 Pain in right shoulder | CPT/HCPCS: 72110; 73030; 99213 ==

== ENCOUNTER → 2024-08-30 14:36 | Outpatient (BNVA) | payer MEDICARE, MEDICAID, SELFPAY | PROVIDERS: PCP Internal Medicine; Visit Provider Student in an Organized Health Care Education/Training Program | DX: M70.61 Trochanteric bursitis, right hip (principal) | CPT/HCPCS: 20610; 99214; J3301; J3490; J9999 ==

== ENCOUNTER 2024-11-21 09:55 | Emergency (ER) | payer MEDICARE, MEDICAID, SELFPAY ==
[2024-11-21] VITALS (14 sets, daily range): BP systolic 122–184; BP diastolic 80–101; PULSE 69–98; RESP 15–26; TEMP 36.8; O2SAT 90–93; BMI 33.4
--- NOTE | 2024-11-21 10:03 | W.ED.FALL ---
HPI - Fall General: Chief Complaint: Extremity Injury, Lower Stated Complaint: Leg pain , Post Fall Time Seen by Provider: 11/21/24 10:02 History of Present Illness: 64-year-old female presents to the emergency room with complaint of left hip and leg pain. She complains of pain in her femur after a fall at home she had a ground-level mechanical fall when she got tangled up with her walker. She did not strike her head there is no loss of consciousness she is not on any anticoagulants denies chest pain shortness of breath no other injuries. She has previously injured the right hip and femur in the past and had surgical repair. Patient received 100 mcg of fentanyl and 4 Zofran en route from EMS. Associated symptoms-after fall: Denies abdominal pain, chest pain or neck pain Related Data Home Medications ?Medication ?Instructions ?Recorded ?Confirmed levothyroxine 50 mcg capsule 50 mcg PO QAM 07/04/19 08/30/24 duloxetine 30 mg capsule,delayed 60 mg PO DAILY 09/10/20 08/30/24 release (Cymbalta) omeprazole 40 mg capsule,delayed 40 mg PO DAILY 07/26/23 08/30/24 release ropinirole 0.5 mg tablet 0.5 mg PO BEDTIME 07/26/23 08/30/24 sumatriptan succinate 100 mg tablet See Rx Instructions .Route 08/23/23 08/30/24 .COMPLEX PRN Migraine Headache albuterol sulfate 90 mcg/actuation 2 puff inhalation Q4H PRN Wheezing 04/15/24 08/30/24 aerosol inhaler alendronate 70 mg tablet See Rx Instructions .Route .COMPLEX 04/15/24 08/30/24 lisinopril 10 mg tablet 10 mg PO DAILY 04/15/24 08/30/24 oxycodone-acetaminophen 10 mg-325 1 tab PO Q6H PRN Pain 04/15/24 08/30/24 mg tablet celecoxib 200 mg capsule 200 mg PO BID 06/02/24 08/30/24 aspirin 325 mg tablet (Yevgeniy 650 mg PO Q6H PRN Fever Or Pain 08/09/24 08/30/24 Aspirin) multivitamin with minerals-folic 1 tab PO DAILY 08/09/24 08/30/24 acid 0.4 mg tablet naloxone 4 mg/actuation nasal spray See Rx Instructions .Route .COMPLEX 08/09/24 08/30/24 ropinirole 0.25 mg tablet 0.25 mg PO DAILY 08/09/24 08/30/24 sumatriptan succinate 50 mg tablet See Rx Instructions .Route .COMPLEX 08/09/24 08/30/24 Previous Rx's ?Medication ?Instructions ?Recorded baclofen 20 mg tablet 20 mg PO QID PRN spasms 30 days 05/30/20 #120 tabs ketorolac 10 mg tablet 10 mg PO Q8H #30 tabs 08/17/24 Allergies Allergy/AdvReac Type Severity Reaction Status Date / Time gabapentin Allergy Severe ADR-Halluci Verified 08/30/24 14:55 nating Penicillins Allergy RASH Verified 08/30/24 14:55 Sulfa (Sulfonamide Allergy ANAPHYLAXIS Verified 08/30/24 14:55 Antibiotics) Review of Systems Const: Denies: fever(s) or chills Card: Denies: chest pain Resp: Denies: dyspnea GI: Denies: abdominal pain : Denies: dysuria, urinary frequency or urinary urgency Musc: Reports: extremity pain and extremity swelling; Denies: neck pain or back pain Skin/Breast: Denies: rash PFSH ED PFSH: Medical History Vertebral compression fracture Chronic pain syndrome Lumbar radiculopathy Bilateral edema of lower extremity At risk for polypharmacy Altered mental status Chronic hypertension Diagnosed at the age of 14 and controlled on medication managed by primary care provider. Anxiety and depression Currently on Cymbalta managed by her primary care provider. Hypothyroid Currently on levothyroxine managed by PMD Chronic low back pain without sciatica Currently on hydrocodone and baclofen managed by the pain clinic Surgical History S/P spinal fusion History of back surgery 10/2020---jef placed in back S/P breast biopsy 2000-left breast-benign History of dental surgery tooth extraction Hx of section 03/26/89 History of ankle surgery 2006--LEFT x3. In [place] Family History Mother Family history of thyroid problem Thyroid disease Diabetes Hypertension Father Brain aneurysm Denies family history of Colon cancer Ovarian cancer DVT (deep venous thrombosis) Heart disease Breast cancer Suicide Pulmonary embolism Uterine cancer Social History Smoking and tobacco/nicotine status: never used tobacco/nicotine Alcohol intake: current Alcohol intake frequency: 0-2 Drinks per Day Substance/Drug Use: never Physical Exam Const: GENERAL APPEARANCE: cooperative ORIENTATION/CONSCIOUSNESS: Yes awake, Yes oriented to person, Yes oriented to place and Yes oriented to time HENMT: COMMON NORMALS: normocephalic, atraumatic and hearing grossly normal bilaterally HEAD & SCALP: normocephalic and atraumatic Resp: COMMON NORMALS: normal respiratory effort, No retractions, No use of accessory muscles and clear to auscultation bilaterally AUSCULTATION: clear to auscultation bilaterally Cardio: COMMON NORMALS: regular rate, regular rhythm and No murmurs present (Cardio) RATE: regular rate RHYTHM: regular rhythm GI: COMMON NORMALS: Soft to palpation and No hepatosplenomegaly present AUSCULTATION: Yes normoactive bowel sounds PALPATION: Yes Soft to palpation, No Tenderness to palpation present (GI), No Guarding due to palpation present (GI) and Yes No hepatosplenomegaly present Extremity: OTHER: Patient laying on her right side complaining pain in her left hip and femur there is some swelling at the knee and in the distal femur. No external rotation of the leg. Neurovascularly intact. Neuro: SENSORIUM/ORIENTATION: Yes oriented to person, Yes oriented to place and Yes oriented to time Skin: COMMON NORMALS: no rashes or lesions noted GENERAL SKIN EXAM: no rashes or lesions noted Procedures Orthopedic Fracture Reduction Fracture #1: Time Out Performed: Yes Side: left Fracture Reduction Location: femur Analgesia: procedural sedation Technique: direct manipulation Post Reduction X-rays Demonstrate: acceptable reduction Post-reduction neuro exam: intact Post-reduction vascular exam: intact Splint Applied: Yes Patient Tolerated Procedure: well Procedural Sedation Indication: fracture/dislocation reduction ASA Class: I Preparation: cardiac specialist applied, pulse oximeter, supplemental O2 applied, suction/airway equipment at bedside and IV secured IV Etomidate dose (mg): 5 (Two 5 mg doses for a total of 10 mg) Course Vital Signs: Vital signs: Vital Signs Temperature 98.2 F 11/21/24 09:59 Pulse Rate 96 11/21/24 17:46 Respiratory Rate 18 11/21/24 17:00 Blood Pressure 146/84 11/21/24 17:46 Pulse Oximetry 90 11/21/24 17:46 Oxygen Delivery Me thod Room Air 11/21/24 09:59 MDM - Fall Medical Decision Making Conscious sedation for reduction of the fracture. It did improve slightly after traction and being placed in a knee immobilizer. Discussed with on-call orthopedics they do not feel we have a capacity to manage this since the joint revision will be extensive. Other labs and imaging reviewed. Troponins negative EKG does not show any acute changes. UA negative. Transfe in stable condition vital signs stable at time of transfer to [facility] in [place] for ORIF and joint revision.r Medical Records I reviewed the patient's medical records. Lab Data I reviewed the patient's lab results. 11/21/24 10:09 11/21/24 10:09 Radiology Impressions Hip/Pelvis X-Ray 11/21/24 10:10 IMPRESSION: No acute findings. Knee X-Ray 11/21/24 10:10 IMPRESSION: Fracture of the distal femur. Chest X-Ray 11/21/24 12:17 IMPRESSION: Tortuous thoracic aorta with possible aneurysm. Consider chest CT if clinically warranted. Femur CT 11/21/24 12:17 IMPRESSION: 1. Prior long intramedullary jef throughout the LEFT femur stabilizing healed fracture in the proximal third of the diaphysis. 2. New acute complex fracture involving the distal third of the femoral diaphysis. Fracture extends obliquely along the distal intramedullary jef. Additional transverse component with comminution through the femoral diaphysis which is distal to the intramedullary jef. 3. Approximately 1.8 cm fracture separation. Cervical Spine CT 11/21/24 13:14 IMPRESSION: 1. No acute cervical spine fracture. 2. Scoliosis cervical spine. No high-grade central or foraminal stenosis. Head CT 11/21/24 13:14 IMPRESSION: 1. No acute intracranial hemorrhage or edema. 2. Mild atrophy and small vessel disease. No acute interval change. Femur X-Ray 11/21/24 14:25 IMPRESSION: Slightly improved alignment. Laboratory Results WBC 7.90 10^3/uL (3.29-11.43) 11/21/24 10:09 RBC 3.79 10^6/uL (3.85-5.65) L 11/21/24 10:09 Hgb 11.50 g/dL (11.27-16.99) 11/21/24 10:09 Hct 37.2 % (36-47) 11/21/24 10:09 MCV 98.2 fl (85-98) H 11/21/24 10:09 MCH 30.3 pg (27-33) 11/21/24 10:09 MCHC 30.9 g/dL (30-55) 11/21/24 10:09 RDW 14.5 % (12.1-15.1) 11/21/24 10:09 Plt Count 219 10^3/cmm (157-399) 11/21/24 10:09 MPV 9.5 fL (7.4-10.4) 11/21/24 10:09 Neut % (Auto) 77.0 % 11/21/24 10:09 Lymph % (Auto) 15.6 % 11/21/24 10:09 [place] % (Auto) 5.4 % 11/21/24 10:09 Eos % (Auto) 0.9 % 11/21/24 10:09 Baso % (Auto) 0.8 % 11/21/24 10:09 Neut # (Auto) 6.09 10^3/uL (1.8-7.7) 11/21/24 10:09 Lymph # (Auto) 1.2 10^3/uL (0.8-4.8) 11/21/24 10:09 [place] # (Auto) 0.4 10^3/uL (0.2-0.9) 11/21/24 10:09 Eos # (Auto) 0.1 10^3/uL (0.0-0.8) 11/21/24 10:09 Baso # (Auto) 0.1 10^3/uL (0.0-0.1) 11/21/24 10:09 Nucleated RBC % (auto) 0 % 11/21/24 10:09 Nucleated RBCs # 0.0 /100WBC 11/21/24 10:09 PT 13.80 SECONDS (12.1-14.9) 11/21/24 10:09 INR 0.99 (0.8-1.2) 11/21/24 10:09 APTT 26.0 SECONDS (23.9-36.7) 11/21/24 10:09 Sodium 140 mmol/L (136-145) 11/21/24 10:09 Potassium 4.1 mmol/L (3.5-5.1) 11/21/24 10:09 Chloride 102 mmol/L (98-107) 11/21/24 10:09 Carbon Dioxide 25 mmol/L (22-29) 11/21/24 10:09 Anion Gap 17.1 (5-19) 11/21/24 10:09 BUN 14 mg/dL (8-23) 11/21/24 10:09 Creatinine 0.6 mg/dL (0.5-0.9) 11/21/24 10:09 GFR Calculation 100.0 mL/min (90-130) 11/21/24 10:09 Glucose 142 mg/dL (65-115) H 11/21/24 10:09 Calculated Osmolality 293 mOsm/kg (285-295) 11/21/24 10:09 Calcium 8.8 mg/dL (8.5-10.5) 11/21/24 10:09 Total Bilirubin 0.4 mg/dL (0.15-1.2) 11/21/24 10:09 AST 16 U/L (0-32) 11/21/24 10:09 ALT 11 U/L (0-33) 11/21/24 10:09 Alkaline Phosphatase 111 U/L (35-105) H 11/21/24 10:09 Troponin T Baseline 19 ng/L (0-10) H 11/21/24 10:09 Troponin T 120 Minute 17.09 ng/L (0-10) H 11/21/24 13:12 Delta Troponin T -1.91 ABS# (0-10) L 11/21/24 13:12 Troponin T Hi Sens 6Hr 15.78 ng/L (0-10) H 11/21/24 16:03 Troponin T Hi Sens 6Hr Delta -3.22 ng/L (0-12) L 11/21/24 16:03 Total Protein 6.6 g/dL (6.6-8.7) 11/21/24 10:09 Albumin 3.7 g/dL (3.5-5.2) 11/21/24 10:09 Globulin 2.9 g/dL (1.3-4.6) 11/21/24 10:09 Urine Color Yellow (Yellow) 11/21/24 12:46 Urine Appearance Clear (CLEAR) 11/21/24 12:46 Urine pH 7.0 (5-7) 11/21/24 12:46 Ur Specific Dailey 1.011 (1.005-1.030) 11/21/24 12:46 Urine Protein Negative (Negative) 11/21/24 12:46 Urine Glucose (UA) Negative (Normal) 11/21/24 12:46 Urine Ketones 1+ (Negative) H 11/21/24 12:46 Urine Blood 1+ (Negative) A 11/21/24 12:46 Urine Nitrate Negative (Negative) 11/21/24 12:46 Urine Bilirubin Negative (Negative) 11/21/24 12:46 Urine Urobilinogen 0.2 mg/dL (Negative) 11/21/24 12:46 Ur Leukocyte Esterase Negative (Negative) 11/21/24 12:46 Urine RBC 0-2 /hpf (0-2) 11/21/24 12:46 Urine WBC 0-5 /hpf (0-5) 11/21/24 12:46 Ur Squamous Epith Cells 0-5 /hpf (0-5) 11/21/24 12:46 Amorphous Sediment Not Reportable 11/21/24 12:46 Urine Bacteria None seen /hpf (NONE) 11/21/24 12:46 Hyaline Casts 0.81 /lpf 11/21/24 12:46 All radiology interpretation(s) finalized by discharge Discharge Plan Discharge Patient Disposition: Xfer Short-Term Hosp Clinical Impression: Femoral distal fracture Condition: Stable Referrals: Charity Salazar MD [Primary Care Provider, Internal Medicine] Print Language: Bangladeshi Coding Level of Care Code 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
--- NOTE | 2024-11-21 10:10 | XRR_ITS ---
PROCEDURE INFORMATION: Exam: XR Left Hip Exam date and time: 11/21/2024 10:17 AM Age: 64 years old Clinical indication: Injury or trauma; Fall; Blunt trauma (contusions or hematomas); Left; Prior surgery; Surgery date: 6+ months; Surgery type: Lt hip lt femur TECHNIQUE: Imaging protocol: Radiologic exam of the left hip. Views: 2 or 3 views hip with pelvis when performed. COMPARISON: CT pelvis wo con [id number] 08/08/2024 7:15 PM FINDINGS: Bones/joints: ORIF of the proximal left femur. Intact hardware. Moderate articular surface narrowing and mild marginal spurring. Posterior lumbar fusion with lower lumbar laminectomy. Soft tissues: Unremarkable. XR/XR hip LT 2-3V wo/w pel* [id number] IMPRESSION: No acute findings.
--- NOTE | 2024-11-21 10:10 | XRR_ITS ---
PROCEDURE INFORMATION: Exam: XR Left Knee Exam date and time: 11/21/2024 10:26 AM Age: 64 years old Clinical indication: Injury or trauma; Fall; Blunt trauma; Knee; Left; Prior surgery; Surgery date: 6+ months; Surgery type: Lt femur TECHNIQUE: Imaging protocol: Radiologic exam of the left knee. Views: 3 views. COMPARISON: NM bone scan whole body* [id number] 08/25/2023 9:00 AM FINDINGS: Bones/joints: Long intramedullary jef incompletely imaged. Mildly angulated and overriding acute fracture of the distal femur. The hardware is intact. Soft tissues: Normal. XR/XR knee LT 3V* [id number] IMPRESSION: Fracture of the distal femur.
--- NOTE | 2024-11-21 10:10 | XRR_ITS ---
PROCEDURE INFORMATION: Exam: XR Left Femur Exam date and time: 11/21/2024 10:23 AM Age: 64 years old Clinical indication: Injury or trauma; Fall; Blunt trauma; Thigh or upper leg; Left; Prior surgery; Surgery date: 6+ months; Surgery type: Lt femur TECHNIQUE: Imaging protocol: Radiologic exam of the left femur. Views: 2 views. COMPARISON: CR XR femur LT min 2V* [id number] 11/16/2023 10:53 AM FINDINGS: Bones/joints: Acute angulated and overriding fracture of the distal femoral shaft. The long intramedullary jef is intact. ORIF of a prior proximal femoral fracture with compression nail and jef and proximal femoral cerclage wires noted. Soft tissues: Unremarkable. XR/XR femur LT min 2V* [id number] IMPRESSION: Fracture of the distal femur.
[2024-11-21 10:19] LABS: Basophils # 0.1 10^3/uL (0.0-0.1); Basophils % 0.8 %; Eosinophils # 0.1 10^3/uL (0.0-0.8); Eosinophils % 0.9 %; Hematocrit 37.2 % (36-47); Lymphocytes # 1.2 10^3/uL (0.8-4.8); Lymphocytes % 15.6 %; Mean Corpuscular HGB Conc 30.9 g/dL (30-55); Mean Corpuscular Hemoglobin 30.3 pg (27-33); Mean Corpuscular Volume 98.2 fl (85-98); Mean Platelet Volume 9.5 fL (7.4-10.4); Monocytes # 0.4 10^3/uL (0.2-0.9); Monocytes % 5.4 %; Neutrophils # 6.09 10^3/uL (1.8-7.7); Nucleated Red Blood Cells % 0 %; Platelet Count 219 10^3/cmm (157-399); Red Blood Count 3.79 10^6/uL (3.85-5.65); Red Cell Distribution Width 14.5 % (12.1-15.1)
--- NOTE | 2024-11-21 12:17 | XRR_ITS ---
PROCEDURE INFORMATION: Exam: XR Chest Exam date and time: 11/21/2024 1:01 PM Age: 64 years old Clinical indication: Dyspnea; Additional info: Dyspnea/cough TECHNIQUE: Imaging protocol: Radiologic exam of the chest. Views: 1 view. COMPARISON: CR XR chest 1V portable [id number] 08/08/2024 6:52 PM FINDINGS: Lungs: Mild chronic interstitial prominence. Pleural spaces: Unremarkable. No pleural effusion. No pneumothorax. Heart/Mediastinum: Mild cardiomegaly. Vasculature: Marked uncoiling of the thoracic aorta, possible thoracic aortic aneurysm. Bones/joints: Thoracolumbar posterior fusion pedicle screws and rods. XR/XR chest 1V portable [id number] IMPRESSION: Tortuous thoracic aorta with possible aneurysm. Consider chest CT if clinically warranted.
--- NOTE | 2024-11-21 12:17 | CT_ITS ---
WS: [id number] CT LEFT FEMUR, NONCONTRAST HISTORY: trauma Technique: All CT scans at [facility] use at least one of these dose optimization techniques: automated exposure control; mA and/or kV adjustment per patient size (includes targeted exams where dose is matched to clinical indication); or iterative reconstruction. DLP: 1045.66 mGy.cm COMPARISON: Radiograph 11/16/2023, 11/21/2024 Status post prior LEFT hip gamma nail placement with a long intramedullary femoral jef. There is a new fracture now present extending obliquely through the the distal femur. Oblique fracture extends through the distal portion of the intramedullary jef. There is additional transverse component through the femoral metaphysis. Multiple small spiculated fragments through the femoral metaphysis. Fracture line does not appear to proceed to the intra-articular location. Fracture displaced by approximately 1.8 cm. There is a healed fracture with callus formation in the more proximal femur. Lucency surrounding the gamma nail may indicate loosening. Gamma nail extends to the cortical surface of the LEFT femoral head and nearly with in the joint. There is narrowing of the joint space. Soft tissue edema and hematoma surrounding the new acute fracture site. Extensive scattered femoral artery calcifications. CT/CT femur LT wo con* [id number] IMPRESSION: 1. Prior long intramedullary jef throughout the LEFT femur stabilizing healed fracture in the proximal third of the diaphysis. 2. New acute complex fracture involving the distal third of the femoral diaphy sis. Fracture extends obliquely along the distal intramedullary jef. Additional transverse component with comminution through the femoral diaphysis which is d istal to the intramedullary jef. 3. Approximately 1.8 cm fracture separation.
[2024-11-21] MEDS: etomidate 2 mg/mL INJ SDV 10 mL 10 MG IVP (12:24)
[2024-11-21 12:47] LABS: INR 0.99 (0.8-1.2)
[2024-11-21 12:55] LABS: Alanine Aminotransferase 11 U/L (0-33); Albumin Level 3.7 g/dL (3.5-5.2); Alkaline Phosphatase 111 U/L (35-105); Anion Gap 17.1 (5-19); Aspartate Amino Transferase 16 U/L (0-32); Blood Urea Nitrogen 14 mg/dL (8-23); Calcium 8.8 mg/dL (8.5-10.5); Carbon Dioxide 25 mmol/L (22-29); Chloride 102 mmol/L (98-107); Creatinine Clr Calc Pharmacy 85.4566; Globulin 2.9 g/dL (1.3-4.6); Glucose 142 mg/dL (65-115); Osmolality Calculated 293 mOsm/kg (285-295); Potassium 4.1 mmol/L (3.5-5.1); Sodium 140 mmol/L (136-145); Total Bilirubin 0.4 mg/dL (0.15-1.2); Total Protein 6.6 g/dL (6.6-8.7)
[2024-11-21 12:59] LABS: Bilirubin Urine Negative (Negative); Blood Urine 1+ (Negative); Glucose Urine UA Negative (Normal); Ketones Urine 1+ (Negative); Leukocyte Esterase Urine Negative (Negative); Nitrate Urine Negative (Negative); Protein Urine Negative (Negative); Specific Gravity, Urine 1.011 (1.005-1.030); Urine Appearance Clear (CLEAR); Urine Color Yellow (Yellow); Urobilinogen Urine 0.2 mg/dL (Negative)
[2024-11-21 13:02] LABS: Add Urine Microscopic? YES; Bacteria Urine None Seen /hpf; Hyaline Casts Urine 0.81 /lpf; RBC Urine 0-2 /hpf (0-2); Squamous Epithelial Cell Urine 0-5 /hpf (0-5); WBC Urine 0-5 /hpf (0-5)
[2024-11-21 13:14] LABS: Add Urine Culture? No
--- NOTE | 2024-11-21 13:14 | CT_ITS ---
WS: [id number] CT HEAD NONCONTRAST HISTORY: trauma TECHNIQUE: Contiguous axial imaging performed through the brain. Bone and soft tissue windows. Sagittal and coronal reformats reviewed. All CT scans at [facility] use at least one of these dose optimization techniques: automated exposure control; mA and/or kV adjustment per patient size (includes targeted exams where dose is matched to clinical indication); or iterative reconstruction. DLP: 1499.09 mGy.cm COMPARISON: 08/08/2024 No acute intracranial hemorrhage, midline shift or mass effect. Mild atrophy and small vessel disease. Prominent perivascular space along the inferior LEFT basal ganglia. Mild small vessel disease. Ventricles: Normal size with no hydrocephalus. No inferior displacement of the cerebellar tonsils. Paranasal sinuses: As visualized are clear. Mastoid air cells: Well pneumatized. Calvarium and scalp: Skull is intact with no soft tissue edema or swelling. CT/CT head wo con* [id number] IMPRESSION: 1. No acute intracranial hemorrhage or edema. 2. Mild atrophy and small vessel disease. No acute interval change.
--- NOTE | 2024-11-21 13:14 | CT_ITS ---
WS: [id number] CT CERVICAL SPINE HISTORY: trauma TECHNIQUE: Contiguous 2.0 mm axial imaging performed through the entire cervical spine. Sagittal and coronal reformats also performed. All CT scans at [facility] use at least one of these dose optimization techniques: automated exposure control; mA and/or kV adjustment per patient size (includes targeted exams where dose is matched to clinical indication); or iterative reconstruction. DLP: 1499.09 mGy.cm COMPARISON: 08/08/2024 Patient is severely rotated with head turned to the RIGHT. Mild curvature of the cervical spine. No acute fractures identified. Facet joints are normally aligned. No subluxation or displacement. Lateral masses are aligned and the odontoid is intact. Bilateral facet joint arthropathy. No acute appearing disc protrusions. No high- grade central or foraminal stenosis. Lung apices are clear. CT/CT cervical spin wo con* [id number] IMPRESSION: 1. No acute cervical spine fracture. 2. Scoliosis cervical spine. No high-grade central or foraminal stenosis.
[2024-11-21 13:22] LABS: Troponin(5th) Baseline 19 ng/L (0-10)
[2024-11-21 13:45] LABS: Troponin 5 2HR 17.09 ng/L (0-10)
[2024-11-21 13:47] LABS: Troponin 5 2HR Delta -1.91 ABS# (0-10)
--- NOTE | 2024-11-21 14:18 | ECG_ITS ---
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 Measurements Intervals [place] Rate: 96 P: 49 HI: 189 QRS: 1 QRSD: 99 T: 36 QT: 342 QTc: 433 Interpretive Statements SINUS RHYTHM Compared to ECG 08/08/2024 19:30:22 No significant changes Electronically Signed On 11-22-2024 22:17:50 CDT by Nerissa Hancock M.D. [email or web address]
--- NOTE | 2024-11-21 14:25 | XRR_ITS ---
PROCEDURE INFORMATION: Exam: XR Left Femur Exam date and time: 11/21/2024 2:28 PM Age: 64 years old Clinical indication: Other: Post reduction; Prior surgery; Surgery date: 6+ months; Surgery type: Lt femur; Additional info: Post reduction/splinting TECHNIQUE: Imaging protocol: Radiologic exam of the left femur. Views: 2 views. COMPARISON: CT femur LT wo con* [id number] 11/21/2024 1:38 PM FINDINGS: Bones/joints: The degree of angulation and overriding at site of this patient's distal femoral fracture has diminished slightly. Internal fixation marrow is unchanged. ORIF of a proximal now healed fracture also noted. Soft tissues: Unremarkable. XR/XR femur LT min 2V* [id number] IMPRESSION: Slightly improved alignment.
[2024-11-21] MEDS: HYDROmorphone 0.5 MG/0.5 ML INJ IVP (16:36)
[2024-11-21 16:38] LABS: Troponin 5 6HR 15.78 ng/L (0-10)
[2024-11-21 16:42] LABS: Troponin 5 6HR Delta -3.22 ng/L (0-12)
== END 2024-11-21 17:46 | disposition short-term general hospital (02) ==
PROVIDERS: Emergency Provider Family Medicine; PCP Internal Medicine
DX: S72.402A Unspecified fracture of lower end of left femur, initial encounter for closed fracture (principal); I10 Essential (primary) hypertension; W19.XXXA Unspecified fall, initial encounter
CPT/HCPCS: 27510; 36415; 51702; 70450; 71045; 72125; 73502; 73552; 73562; 73700; 80053; 81001; 84484; 85025; 85610; 85730; 93005; 96374; 99152; 99285; J1171; J3490

== ENCOUNTER 2024-11-30 16:43 | Emergency (ER) | payer MEDICARE, MEDICAID, SELFPAY ==
[2024-11-30] VITALS (7 sets, daily range): BP systolic 118; BP diastolic 77; PULSE 103; RESP 16–20; TEMP 37; O2SAT 89–98
--- NOTE | 2024-11-30 17:02 | XRR_ITS ---
PROCEDURE INFORMATION: Exam: XR Chest Exam date and time: 11/30/2024 5:17 PM Age: 64 years old Clinical indication: Pain; Chest pressure; Additional info: Chest wall pain TECHNIQUE: Imaging protocol: Radiologic exam of the chest. Views: 2 views. COMPARISON: CR (CHEST, ) 11/21/2024 1:01 PM FINDINGS: Lungs: Mild scarring or pleural thickening in the right midlung. No new airspace consolidation. Pleural spaces: No pleural effusion or pneumothorax. Heart/Mediastinum: Stable cardiomediastinal contours with prominent tortuous aortic arch again noted, unchanged. Bones/joints: Postsurgical changes to the lower thoracic spine and lumbar spine with no acute osseous findings. XR/XR chest 2V* [id number] IMPRESSION: Stable appearance of the chest with no acute findings.
[2024-11-30 17:30] LABS: Basophils # 0.1 10^3/uL (0.0-0.1); Eosinophils # 0.2 10^3/uL (0.0-0.8); Eosinophils % 2.3 %; Hematocrit 26.1 % (36-47); Lymphocytes # 1.4 10^3/uL (0.8-4.8); Lymphocytes % 20.2 %; Mean Corpuscular Hemoglobin 30.6 pg (27-33); Mean Corpuscular Volume 98.5 fl (85-98); Mean Platelet Volume 9.1 fL (7.4-10.4); Monocytes # 0.6 10^3/uL (0.2-0.9); Monocytes % 8.3 %; Neutrophils # 4.65 10^3/uL (1.8-7.7); Neutrophils % 67.6 %; Nucleated Red Blood Cells % 0 %; Platelet Count 363 10^3/cmm (157-399); Red Blood Count 2.65 10^6/uL (3.85-5.65); Red Cell Distribution Width 13.9 % (12.1-15.1); White Blood Count 6.88 10^3/uL (3.29-11.43)
[2024-11-30] MEDS: sodium chloride 0.9% 1,000 ML 999 ML IV (17:30)
[2024-11-30] MEDS: famotidine 20 mg/2 mL INJ 40 MG IVP (17:30)
[2024-11-30] MEDS: fentaNYL 50 mcg/mL INJ 2mL IVP (17:30)
[2024-11-30 17:53] LABS: Alanine Aminotransferase 11 U/L (0-33); Albumin Level 3.5 g/dL (3.5-5.2); Alkaline Phosphatase 109 U/L (35-105); Aspartate Amino Transferase 21 U/L (0-32); Blood Urea Nitrogen 11 mg/dL (8-23); Calcium 8.8 mg/dL (8.5-10.5); Carbon Dioxide 27 mmol/L (22-29); Chloride 102 mmol/L (98-107); Globulin 3.1 g/dL (1.3-4.6); Glomerular Filtration Rate 123.4 mL/min (90-130); Glucose 171 mg/dL (65-115); Lipase 19 U/L (13-60); Osmolality Calculated 293 mOsm/kg (285-295); Sodium 140 mmol/L (136-145); Total Bilirubin 0.5 mg/dL (0.15-1.2); Total Protein 6.6 g/dL (6.6-8.7)
[2024-11-30 18:07] LABS: Anion Gap 16.3 (5-19); Potassium 5.3 mmol/L (3.5-5.1)
--- NOTE | 2024-11-30 18:10 | W.ED.ABDPA2 ---
HPI - Abdominal Pain General: Chief Complaint: Abdominal Pain Stated Complaint: LUQ abd pain Time Seen by Provider: 11/30/24 16:49 History of Present Illness: 64-year-old female presents with pain to her left upper quadrant. She reports about 2 weeks ago she fell hurt her shoulder on her side. That since then she has had worsening discomfort in her left upper quadrant along with some mid epigastric discomfort. She reports that over the last couple days has gotten worse. She complains of some mild discomfort in the left chest wall. Related Data Home Medications ?Medication ?Instructions ?Recorded ?Confirmed levothyroxine 50 mcg capsule 50 mcg PO QAM 07/04/19 08/30/24 duloxetine 30 mg capsule,delayed 60 mg PO DAILY 09/10/20 08/30/24 release (Cymbalta) omeprazole 40 mg capsule,delayed 40 mg PO DAILY 07/26/23 08/30/24 release ropinirole 0.5 mg tablet 0.5 mg PO BEDTIME 07/26/23 08/30/24 sumatriptan succinate 100 mg tablet See Rx Instructions .Route 08/23/23 08/30/24 .COMPLEX PRN Migraine Headache albuterol sulfate 90 mcg/actuation 2 puff inhalation Q4H PRN Wheezing 04/15/24 08/30/24 aerosol inhaler alendronate 70 mg tablet See Rx Instructions .Route .COMPLEX 04/15/24 08/30/24 lisinopril 10 mg tablet 10 mg PO DAILY 04/15/24 08/30/24 oxycodone-acetaminophen 10 mg-325 1 tab PO Q6H PRN Pain 04/15/24 08/30/24 mg tablet celecoxib 200 mg capsule 200 mg PO BID 06/02/24 08/30/24 aspirin 325 mg tablet (Yevgeniy 650 mg PO Q6H PRN Fever Or Pain 08/09/24 08/30/24 Aspirin) multivitamin with minerals-folic 1 tab PO DAILY 08/09/24 08/30/24 acid 0.4 mg tablet naloxone 4 mg/actuation nasal spray See Rx Instructions .Route .COMPLEX 08/09/24 08/30/24 ropinirole 0.25 mg tablet 0.25 mg PO DAILY 08/09/24 08/30/24 sumatriptan succinate 50 mg tablet See Rx Instructions .Route .COMPLEX 08/09/24 08/30/24 Previous Rx's ?Medication ?Instructions ?Recorded baclofen 20 mg tablet 20 mg PO QID PRN spasms 30 days 05/30/20 #120 tabs ketorolac 10 mg tablet 10 mg PO Q8H #30 tabs 08/17/24 nitrofurantoin 100 mg PO BID 7 days #14 caps 11/30/24 monohydrate/macrocrystals 100 mg capsule (Macrobid) Allergies Allergy/AdvReac Type Severity Reaction Status Date / Time gabapentin Allergy Severe ADR-Halluci Verified 08/30/24 14:55 nating Penicillins Allergy RASH Verified 08/30/24 14:55 Sulfa (Sulfonamide Allergy ANAPHYLAXIS Verified 08/30/24 14:55 Antibiotics) PFS ED PFSH: Medical History Vertebral compression fracture Chronic pain syndrome Lumbar radiculopathy Bilateral edema of lower extremity At risk for polypharmacy Altered mental status Chronic hypertension Diagnosed at the age of 14 and controlled on medication managed by primary care provider. Anxiety and depression Currently on Cymbalta managed by her primary care provider. Hypothyroid Currently on levothyroxine managed by PMD Chronic low back pain without sciatica Currently on hydrocodone and baclofen managed by the pain clinic Surgical History S/P spinal fusion History of back surgery 10/2020---jef placed in back S/P breast biopsy 2000-left breast-benign History of dental surgery tooth extraction Hx of section 03/26/89 History of ankle surgery 2006--LEFT x3. In [place] Family History Mother Family history of thyroid problem Thyroid disease Diabetes Hypertension Father Brain aneurysm Denies family history of Colon cancer Ovarian cancer DVT (deep venous thrombosis) Heart disease Breast cancer Suicide Pulmonary embolism Uterine cancer Social History Smoking and tobacco/nicotine status: never used tobacco/nicotine Alcohol intake: current Alcohol intake frequency: 0-2 Drinks per Day Substance/Drug Use: never Course Vital Signs: Vital signs: Vital Signs Temperature 98.6 F 11/30/24 16:48 Pulse Rate 103 H 11/30/24 16:48 Respiratory Rate 16 11/30/24 21:18 Blood Pressure 118/77 11/30/24 17:53 Pulse Oximetry 98 11/30/24 20:00 Oxygen Delivery Me thod Room Air 11/30/24 16:48 MDM - Abdominal Pain Medical Decision Making Patient's diagnostics were ordered and reviewed. She does have a slight decrease of her hemoglobin from prior visit but this is consistent with likely postop blood loss from her recent leg injury and surgery. Patient's chest x-ray shows no acute findings. Patient's abdominal CT shows some bladder wall thickening which is consistent with a urine that likely showing a urinary tract infection. Patient will be discharged with Macrobid. She already has pain medication at home that she can take for her pain control from her recent surgery. Patient chest x-ray and other CT findings show no acute injuries. Patient likely does have a mild chest wall contusion from her fall. She was stable upon discharge. Lab Data 11/30/24 17:20 11/30/24 17:20 Labs/Radiology: Radiology Impressions Chest X-Ray 11/30/24 17:02 IMPRESSION: Stable appearance of the chest with no acute findings. Abdomen/Pelvis CT 11/30/24 19:11 IMPRESSION: 1. Small right posterolateral 1 cm bladder diverticulum with mild to moderate bladder wall thickening question cystitis. 2. Cholelithiasis with normal CBD. 3. 3 mm right renal calculus with no obstruction. 4. Left hip postsurgical changes with hardware as described similar though in configuration/appearance to the prior study. 5. Extensive postsurgical changes are seen with multiple pedicle screws and posterior stabilization devices spanning the lower thoracic to lumbosacral levels. 6. Additional chronic changes, as noted above. Laboratory Results WBC 6.88 10^3/uL (3.29-11.43) 11/30/24 17:20 RBC 2.65 10^6/uL (3.85-5.65) L 11/30/24 17:20 Hgb 8.10 g/dL (11.27-16.99) L 11/30/24 17:20 Hct 26.1 % (36-47) L 11/30/24 17:20 MCV 98.5 fl (85-98) H 11/30/24 17:20 MCH 30.6 pg (27-33) 11/30/24 17:20 MCHC 31.0 g/dL (30-55) 11/30/24 17:20 RDW 13.9 % (12.1-15.1) 11/30/24 17:20 Plt Count 363 10^3/cmm (157-399) 11/30/24 17:20 MPV 9.1 fL (7.4-10.4) 11/30/24 17:20 Neut % (Auto) 67.6 % 11/30/24 17:20 Lymph % (Auto) 20.2 % 11/30/24 17:20 [place] % (Auto) 8.3 % 11/30/24 17:20 Eos % (Auto) 2.3 % 11/30/24 17:20 Baso % (Auto) 1.0 % 11/30/24 17:20 Neut # (Auto) 4.65 10^3/uL (1.8-7.7) 11/30/24 17:20 Lymph # (Auto) 1.4 10^3/uL (0.8-4.8) 11/30/24 17:20 [place] # (Auto) 0.6 10^3/uL (0.2-0.9) 11/30/24 17:20 Eos # (Auto) 0.2 10^3/uL (0.0-0.8) 11/30/24 17:20 Baso # (Auto) 0.1 10^3/uL (0.0-0.1) 11/30/24 17:20 Nucleated RBC % (auto) 0 % 11/30/24 17:20 Nucleated RBCs # 0.0 /100WBC 11/30/24 17:20 Sodium 140 mmol/L (136-145) 11/30/24 17:20 Potassium 5.3 mmol/L (3.5-5.1) H 11/30/24 17:20 Chloride 102 mmol/L (98-107) 11/30/24 17:20 Carbon Dioxide 27 mmol/L (22-29) 11/30/24 17:20 Anion Gap 16.3 (5-19) 11/30/24 17:20 BUN 11 mg/dL (8-23) 11/30/24 17:20 Creatinine 0.5 mg/dL (0.5-0.9) 11/30/24 17:20 GFR Calculation 123.4 mL/min (90-130) 11/30/24 17:20 Glucose 171 mg/dL (65-115) H 11/30/24 17:20 Calculated Osmolality 293 mOsm/kg (285-295) 11/30/24 17:20 Calcium 8.8 mg/dL (8.5-10.5) 11/30/24 17:20 Total Bilirubin 0.5 mg/dL (0.15-1.2) 11/30/24 17:20 AST 21 U/L (0-32) 11/30/24 17:20 ALT 11 U/L (0-33) 11/30/24 17:20 Alkaline Phosphatase 109 U/L (35-105) H 11/30/24 17:20 Total Protein 6.6 g/dL (6.6-8.7) 11/30/24 17:20 Albumin 3.5 g/dL (3.5-5.2) 11/30/24 17:20 Globulin 3.1 g/dL (1.3-4.6) 11/30/24 17:20 Lipase 19 U/L (13-60) 11/30/24 17:20 Urine Color Yellow (Yellow) 11/30/24: Urine Appearance Cloudy (CLEAR) A 11/30/24: Urine pH 8.0 (5-7) A 11/30/24: Ur Specific [place] 1.015 (1.005-1.030) 11/30/24: Urine Protein Negative (Negative) 11/30/24: Urine Glucose (UA) Negative (Normal) 11/30/24: Urine Ketones Negative (Negative) 11/30/24: Urine Blood Negative (Negative) 11/30/24: Urine Nitrate Positive (Negative) A 11/30/24: Urine Bilirubin Negative (Negative) 11/30/24: Urine Urobilinogen 1.0 mg/dL (Negative) 11/30/24 19: Ur Leukocyte Esterase Negative (Negative) 11/30/24: Urine RBC 0-2 /hpf (0-2) 11/30/24: Urine WBC 0-5 /hpf (0-5) 11/30/24:31 Ur Squamous Epith Cells 0-5 /hpf (0-5) 11/30/24 19:31 Amorphous Sediment Not Reportable 11/30/24 19:31 Urine Bacteria Exceeds /hpf (NONE) 11/30/24 19:31 Hyaline Casts 0.81 /lpf 11/30/24 19:31 All radiology interpretation(s) finalized by discharge Discharge Plan Discharge Patient Disposition: Home Clinical Impression: Acute cystitis, Chest wall pain, Abdominal pain, left upper quadrant Condition: Stable Prescriptions: New nitrofurantoin monohyd/m-cryst [Macrobid] 100 mg capsule 100 mg PO BID 7 Days Qty: 14 0RF Rx Instructions: must administer with a meal/food No Action baclofen 20 mg tablet 20 mg PO QID PRN (Reason: spasms) 30 Days Qty: 120 1RF levothyroxine 50 mcg capsule 50 mcg PO QAM duloxetine [Cymbalta] 30 mg capsule,delayed release(DR/EC) 60 mg PO DAILY omeprazole 40 mg capsule,delayed release(DR/EC) 40 mg PO DAILY ropinirole 0.5 mg tablet 0.5 mg PO BEDTIME ketorolac 10 mg tablet 10 mg PO Q8H Qty: 30 0RF Rx Instructions: maximum total duration of 5 days from all oral, intranasal, or parenteral formulations sumatriptan succinate 100 mg tablet See Rx Instructions .ROUTE .COMPLEX PRN (Reason: Migraine Headache) Rx Instructions: TAKE 1 TABLET BY MOUTH at ONSET of headache, MAY REPEAT ONCE in 24 hours aspirin [Yevgeniy Aspirin] 325 mg Tablet 650 mg PO Q6H PRN (Reason: Fever Or Pain) sumatriptan succinate 50 mg tablet See Rx Instructions .ROUTE .COMPLEX Rx Instructions: TAKE 1 TABLET BY MOUTH at ONSET of headache, MAY REPEAT ONCE in 24 hours ropinirole 0.25 mg tablet 0.25 mg PO DAILY multivit with min-folic acid [Daily Multiple For Women 50+] 0.4 mg Tablet 1 tab PO DAILY naloxone 4 mg/actuation spray,non-aerosol See Rx Instructions .ROUTE .COMPLEX Rx Instructions: intranasally ;CALL 911. Use one full spray in one nostril one time. Repeat every 2-3 minutes as needed if no or minimal response. alendronate 70 mg tablet See Rx Instructions .ROUTE .COMPLEX Rx Instructions: 70 mg orally by mouth every week oxycodone-acetaminophen 10-325 mg tablet 1 tab PO Q6H MDD 4 PRN (Reason: Pain) lisinopril 10 mg tablet 10 mg PO DAILY albuterol sulfate 90 mcg/actuation HFA aerosol inhaler 2 puff INHALATION Q4H PRN (Reason: Wheezing) celecoxib 200 mg capsule 200 mg PO BID Discharge Orders: Discharge ED (Routine); Ordered 11/30/24 Ordered By: Peng Myers Referrals: Charity Salazar MD [Primary Care Provider, Internal Medicine] Discharge Diet: Usual diet Discharge Activity: Increase activity as tolerated Patient Instructions: Urinary Tract Infection in Women (DC), Abdominal Pain (ED), Chest Wall Pain (ED), Opioid Safety, Pain Management Activity Restrictions/Additional Instructions: Please take your medications as prescribed. Please follow-up with your copy center specialist and primary child care centre director if you continue to have pain in the left upper quadrant and left chest wall for further outpatient medication options. Be sure you are drinking plenty of fluids. 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
--- NOTE | 2024-11-30 19:11 | CTR_ITS ---
PROCEDURE INFORMATION: Exam: CT Abdomen And Pelvis With Contrast Exam date and time: 11/30/2024 8:07 PM Age: 64 years old Clinical indication: Abdominal pain; Localized; Left upper quadrant (luq); Prior surgery; Surgery date: 6+ months; Surgery type: Lspine; Lt hip; Additional info: Luq pain TECHNIQUE: Imaging protocol: Computed tomography of the abdomen and pelvis with contrast. Radiation optimization: All CT scans at this facility use at least one of these dose optimization techniques: automated exposure control; mA and/or kV adjustment per patient size (includes targeted exams where dose is matched to clinical indication); or iterative reconstruction. Contrast material: OMNIPAQUE 350; Contrast volume: 100 ml; Contrast route: INTRAVENOUS (IV); COMPARISON: CT pelvis wo con [id number] 08/08/2024 19:15 RADIATION DOSE METRICS: Total DLP (mGy-cm): 1125.99 FINDINGS: Limitations: Multilevel thoracolumbar metallic artifacts along the spine and left hip hardware result in significant beam hardening obscuring detail. Heart: Lower chest: Mild cardiomegaly is noted. Lungs appear to be relatively clear. Liver: Normal. No mass. Gallbladder and biliary ducts: 1.7 cm gallstone. No ductal dilation. Pancreas: Mild atrophic changes. No ductal dilation. Spleen: A few scattered calcified granulomata are present. No splenomegaly. Adrenal glands: Normal. No mass. Kidneys and ureters: The right kidney is incompletely rotated. This is in the range of normal. A punctate right lower pole calcification is noted measuring 3 mm size. There is no evidence of obstruction in either kidney.. No hydronephrosis. Stomach and bowel: There is a ptlp-[id number] amount of granular stool like debris seen along the ascending transverse and descending to rectosigmoid regions of the colon. No obstruction. No mucosal thickening. Appendix: No evidence of appendicitis. The appendix appears to be normal as seen on image 50 of series 5. Intraperitoneal space: Unremarkable. No free air. No significant fluid collection. Vasculature: Unremarkable. No abdominal aortic aneurysm. Lymph nodes: Unremarkable. No enlarged lymph nodes. Urinary bladder: The bladder is only mildly distended but demonstrates a small 1 cm right posterolateral bladder wall diverticulum as well as mild to moderate generalized bladder wall thickening. Reproductive: The uterus demonstrates atrophic changes. Bones/joints: Extensive postsurgical changes/laminectomies are seen with multiple bilateral pedicle screws and posterior stabilization devices spanning the lower thoracic to lumbosacral levels. Multilevel chronic biconcave compressive changes are again seen throughout the visualized lower thoracic to L5 levels. Also observed are postsurgical changes with hardware at the left hip . The femoral compression screw appears to have extended up to and involves the superior weight-bearing surface of the femoral head. No significant interval change though can be appreciated with respect to this appearance in comparison to the earlier study from 08/08/2024. No acute fracture identified. Soft tissues: Diastasis recti is noted with maximal transverse dimension of just over 5 cm. This is unchanged. CT/CT abdomen pelvis w con* [id number] IMPRESSION: 1. Small right posterolateral 1 cm bladder diverticulum with mild to moderate bladder wall thickening question cystitis. 2. Cholelithiasis with normal CBD. 3. 3 mm right renal calculus with no obstruction. 4. Left hip postsurgical changes with hardware as described similar though in configuration/appearance to the prior study. 5. Extensive postsurgical changes are seen with multiple pedicle screws and posterior stabilization devices spanning the lower thoracic to lumbosacral levels. 6. Additional chronic changes, as noted above.
[2024-11-30 19:37] LABS: Bilirubin Urine Negative (Negative); Blood Urine Negative (Negative); Glucose Urine UA Negative (Normal); Ketones Urine Negative (Negative); Leukocyte Esterase Urine Negative (Negative); Nitrate Urine Positive (Negative); Protein Urine Negative (Negative); Specific Gravity, Urine 1.015 (1.005-1.030); Urine Appearance Cloudy (CLEAR); Urine Color Yellow (Yellow)
[2024-11-30 19:42] LABS: Add Urine Microscopic? YES; Bacteria Urine EXCEEDS /hpf; Hyaline Casts Urine 0.81 /lpf; RBC Urine 0-2 /hpf (0-2); Squamous Epithelial Cell Urine 0-5 /hpf (0-5); WBC Urine 0-5 /hpf (0-5)
[2024-11-30] MEDS: iohexol 350 mg/mL 500 mL Btl (per mL) IV (20:11)
[2024-11-30] MEDS: oxyCODONE-APAP 5-325 mg Tablet 1 TAB PO (21:18)
[2024-11-30] MEDS: nitrofurantoin SR (BID) 100 mg Capsule PO (22:07)
== END 2024-11-30 22:49 | disposition home or self-care (01) ==
PROVIDERS: Emergency Provider Student in an Organized Health Care Education/Training Program; PCP Internal Medicine
DX: N30.00 Acute cystitis without hematuria (principal); R07.89 Other chest pain; R10.12 Left upper quadrant pain; Z79.82 Long term (current) use of aspirin; I10 Essential (primary) hypertension
CPT/HCPCS: 36415; 71046; 74177; 80053; 81001; 83690; 85025; 96374; 96375; 99285; J3010; J3490; J7030; J9999

== ENCOUNTER 2024-12-15 12:40 | Emergency (ER) | payer MEDICARE, MEDICAID, SELFPAY ==
--- OUTSIDE RECORDS SUMMARY | 2024-11-29 10:00 | XMS_ITS ---
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 :1960 A ge:64 Y S ex:Female Date:11/29/2024 Address:[address] [place], [place] [id number] Pcp:Charity Salazar MD Subjective: * Chief Complaints: * 1 . 2 month f/u [facility] [place]/pt is in hospital. * HPI: P ain Details: Pain Location . . Quality . . Severity of pain at its worst . . Severity of pain at its best . . Severity of pain on medication . . Severity of average pain . . Severity of pain right now . . When did you last take your pain medicine . . M edication Details: Do you have a lock box or safe place for medication away from minors and/or others? Y es. Do you have any leftover pain medication building up at your house? N o. Do you understand that pain medication can be addicting and can cause overdose? Y es. Do you feel you can REDUCE the amount of medication you take today? N o. O pioid Assessment Tools: Pill Count . . Last Urine Drug Screen . . Today's Rapid Urine Drug Screen . . [facility] Prescription Monitoring Program . . T reatment History: Test undergone in the past . . Past medication you have taken . . Treatments you have had . . * ROS: G eneral - Multi System: Constitutional D enies, f ever, recent weight gain, recent weight loss, fatigue. R espiratory D enies, wheezing, shortness of breath, cough, snoring. G astrointestinal D enies, nausea, vomiting, constipation, abdominal pain. P sychiatric D enies, , anxiety, depression, panic attacks, suicidal thoughts. * Medical History: Objective: * Vitals: Assessment: Plan: * Treatment: Forms: * Billing Information: * Visit Code: * Procedure Codes: Care Plan Details* * Electronic signature of Charles García DO on 12/15/2024 at 12:58 PM CDT Sign off status: Pending * Provider: Kd García D.O. Date: 0 11/29/2024 Generated for Maxime [email or web address] on: 0 12/15/2024 12:58 PM CDT History and Physical Notes * HPI (History of Present Illness) Category Sub-Category Detail Notes Category Not es Pain Details Pain Location . Quality . Severity of pain at its worst . Severity of pain at its best . Severity of average pain . Severity of pain right now . Severity of pain on medication . When did you last take your pain medicin e . Medication Details Do you have a lock b ox or safe place for medication away from minors and/or others? Yes Do you have any leftover pain medication building up at your house? No Do you understand that pain medication c an be addicting and can cause overdose? Yes Do you feel you can REDUCE the amount of medication you take today? No Opioid Assessment Tools Pill Count . Last Urine Drug Screen . Today's Rapid Urine Drug Screen . [facility] Prescription Monitoring Program . Treatment History Test undergone in the past . Past medication you have taken . Treatments you have had .
[2024-12-15 12:41] VITALS: BP 133/82; PULSE 70; RESP 17; TEMP 36.9; O2SAT 93; BMI 33.4
--- NOTE | 2024-12-15 12:57 | USR_ITS ---
PROCEDURE INFORMATION: Exam: US Duplex Left Lower Extremity Veins, Limited Exam date and time: 12/15/2024 1:30 PM Age: 64 years old Clinical indication: Swelling (edema) of limb; Lower extremity, left; Prior surgery; Surgery date: <1 month; Surgery type: Left femur fracture; Additional info: Swelling - recent femur fracture TECHNIQUE: Imaging protocol: Real-time duplex ultrasound of the left extremity with 2-D simmons scale, color Doppler flow and spectral waveform analysis including responses to compression and other maneuvers (when performed) with image documentation. Limited exam focused on the left lower extremity veins. COMPARISON: CT femur LT wo con* [id number] 11/21/2024 1:38 PM FINDINGS: Left deep veins: Unremarkable. The common femoral, femoral, proximal profunda femoral and popliteal veins as well as the visualized deep veins of the lower leg are patent without thrombus. Normal Doppler waveforms. Normal compressibility and/or augmentation response. Superficial veins: Greater saphenous vein at the saphenofemoral junction is patent without thrombus. Soft tissues: Unremarkable. US/CV venous duplex [facility] [id number] IMPRESSION: No evidence of deep vein thrombosis.
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
--- OUTSIDE RECORDS SUMMARY | 2024-12-15 12:59 | XMS_ITS | Data Portability ---
Author Organization [facility]on [facility] Address [address] [address] Assessment No assessment recorded. Plan of Treatment [...] Modified By Organization Details Last Modified Time 11/16/2023 [id number] blood pressure too low, will d/c lisinopril. Weight down some have nursing monitor. [email or web address] Not available 11/16/2023 14:04:56 11/18/2023 [id number] Planning to d/c home. Will need home health eval and tx. f/u with pcp 7-14 days after discharge. Will need manual wheelchair d/t fracture. YASMEEN 6 months. [email or web address] Not available 11/18/2023 13:52:30 11/30/2024 [id number] Fall at home resulted in fracture, admitted to snf for therapy. C/o constipation, will schedule daily miralax. complaining of left shoulder pain; no xray found in hospital [email or web address] Not available 12/05/2024 15:27:51 12/04/2024 [id number] Started on Macrobid, will not cover changed to cipro. Will give enemas x 2 [email or web address] Not available 12/04/2024 15:59:57 12/11/2024 [id number] Planning to d/c home soon. Wanting to participate in outpatient therapy at [facility]. Will need to f/u with pcp 7-14 days after discharge. [email or web address] Not available 12/11/2024 16:33:32 Reason for Referral None Reported. Problems Name Problem SNOMED Code Status Onset Date Resolution Date Notes Provider Name and Address Organization Details Recorded Time Narcotic drug user 45536069 [facility] 14:18:04 Closed intertroch anteric fracture of left femur 4110799058414 9104 Active 2023 [facility]IPTON [facility] 14:18:05 Essential hypertensi on 43921728 Active 2023 [facility]JA TIPTON [facility] 14:04:35 Problem Notes None recorded. Medical [...] and Address Organization Details Last Updated DateTime 4 802103. 88 g 80 /min 20 /min 97.8 [degF] 98 % 98 % 102/58 mm[Hg] [facility]JA TIPTON [facility] 4 14:03:29 Date Recorded Body weight Heart rate Respiratory rate Body temperature Oxygen saturation Oxygen saturation in Arterial blood by Pulse oximetry Systolic And Diastolic Provider Name and Address Organization Details Last Updated DateTime 4 564214. 28 g 80 /min 20 /min 97.7 [degF] 90 % 90 % 94/59 mm[Hg] [facility] 4 13:49:56 Date Recorded Body weight Heart rate Respiratory rate Body temperature Oxygen saturation Oxygen saturation in Arterial blood by Pulse oximetry Systolic And Diastolic Provider Name and Address Organization Details Last Updated DateTime 5 316575. 21 g 97 /min 19 /min 98.17 [degF] 92 % 92 % 96/59 mm[Hg] [facility] 5 14:59:11 Date Recorded Body weight Heart rate Respiratory rate Body temperature Oxygen saturation Oxygen saturation in Arterial blood by Pulse oximetry Systolic And Diastolic Provider Name and Address Organization Details Last Updated DateTime 5 171090. 21 g 89 /min 20 /min 97.1 [degF] 96 % 96 % 114/73 mm[Hg] [facility] 5 15:55:36 Date Recorded Body weight Heart rate Respiratory rate Body temperature Oxygen saturation Oxygen saturation in Arterial blood by Pulse oximetry Systolic And Diastolic Provider Name and Address Organization Details Last Updated DateTime 5 532597. 21 g 84 /min 16 /min 98.2 [degF] 93 % 93 % 104/64 mm[Hg] [facility] 5 16:31:37 Social History None recorded. Functional Status None recorded. Mental Status None recorded. Family History Nothing Reported. Medical History No medical history recorded. Gynecological HistoryNo gynecological history recorded. Obstetrics History GPAL:G 0 P 0 0 0 0 Immunizations Vaccine Type Date Status Note Provider Nam e and Address Organization Details Recorded Time Tdap 07/21/2019 completed Not Available [facility] 12/11/2024 14:26:26 COVID-19, mRNA, LNP-S, PF, 100 mcg/0.5mL dose or 50 mcg/0.25mL dose 09/30/2020 completed Not Available [facility] 14:26:26 COVID-19, mRNA, LNP-S, PF, 100 mcg/0.5mL dose or 50 mcg/0.25mL dose 01/10/2021 completed Not Available [facility] 5 14:26:26 COVID-19, mRNA, LNP-S, PF, 100 mcg/0.5mL dose or 50 mcg/0.25mL dose 07/04/2021 completed Not Available [facility] 5 14:26:26 Influenza, split virus, quadrivalent, PF 04/23/2022 completed Not Available [facility] 5 14:26:26 Influenza, split virus, quadrivalent, PF 04/16/2024 completed Not Available [facility] 5 14:26:26 Past Encounters Encounter ID Performer Location Encounter Start Date Encounter Closed Date Diagnosis/Indication Diagnosis SNOMED-CT Code Diagnosis ICD10 Code Diagnosis Note [id number] Ruy Vanegas DO [facility]) [address] [place] [address] 5 10/21/2023 11:24:42 10/26/2023 11:53:03 Hospital inpatient stay within past 30 days 8199961553 106 Z76.89 Closed intertrochanteric fracture of left femur 6033136975 6697735 S72.142S Narcotic drug user 91543 002 F11.90 [id number] Ruy Vanegas DO [facility]) [address] [place] [address] 5 10/26/2023 08:07:25 11/01/2023 19:14:44 Closed intertrochanteric fracture of left femur 5837607171 8163329 S72.142S Narcotic drug user 32690 002 F11.90 [id number] Ruy Vanegas DO [facility] ([facility]) [address] [place] [address] 5 11/16/2023 08:26:46 11/23/2023 10:37:22 Closed intertrochanteric fracture of left femur 4687898292 1495062 S72.142S Narcotic drug user 56993 002 F11.90 Essential hypertension 85957057 I10 [id number] Ruy Vanegas DO [facility] ([facility]) [address] [place] [address] 5 11/18/2023 11:40:41 11/23/2023 12:58:11 Closed intertrochanteric fracture of left femur 3939532242 2342101 S72.142S Essential hypertension 72482090 I10 [id number] Ruy Vanegas DO [facility] ([facility]) [address] [place] [phone] 11/30/2024 08:44:38 12/05/2024 16:54:29 Essential hypertension 32011187 I10 Post-disch arge follow-up 312128024 Z09 Closed fra cture of femur, distal end 108966978 S72.471D Narcotic drug user 12218 002 F11.90 [id number] Ruy Vanegas DO [facility] ([facility]) [address] [place] [id number] 12/04/2024 14:09:44 12/06/2024 13:15:54 Chronic pain 66302367 G89.29 Acute constipation 52990 9006 K59.00 Acute urin michael tract infection 152854390 N39.0 [id number] Ruy Vanegas DO [facility] ([facility]) [address] [place] [address] 12/11/2024 14:26:00 12/13/2024 12:48:02 Closed intertrochanteric fracture of left femur 9496858114 3214354 S72.142S Essential hypertension 65885020 I10 Narcotic drug user 72356 002 F11.90 Health Concerns Section Related Observation LastModified by Organization Detai ls LastModified Time None Recorded Concern Status LastModified by Organization Details LastModified Time None Recorded Advance Directives Directive None Recorded Payers Insurance Date Sequence Insurance Name Policy Number Policy Padilla Covered Member ID Padilla Member ID Guarantor Name 10/26/2023 1 *SELF PAY* [place] 12/13/2024 1 [id number]A [place]ANT[place] - PPO) [id number] [place] [id number] [place] Notes Date Note Type Note Provider Name and Address Organization Details Recorded Time 11/16/2023 text/html Chronic Pain Follow-upReported bypatient.Quality:s harp; stabbing Alleviating factors:opioids Aggravating Factors:movement; stress Analgesia:taking pain medication Aberrant Behaviorworse mood Ruy Vanegas DO [address] [place] [address], [phone], [facility], LKassandraLKassandraC. 11/22/2023 11:30:09 11/18/2023 text/html Chronic Pain Follow-upReported bypatient.Quality:s harp; stabbing Alleviating factors:opioids Aggravating Factors:movement; stress Analgesia:taking pain medication Aberrant Behaviorworse mood Ruy Vanegas DO [address] [place] [address], [phone], [facility], LKassandraLKassandraC. 11/21/2023 13:09:57 11/30/2024 text/html Chronic Pain Follow-upReported bypatient.Quality:s harp; stabbing Alleviating factors:opioids Aggravating Factors:movement; stress Analgesia:taking pain medication Aberrant Behaviorworse mood new admit to SNF after fall at home resulted in fracture. Ruy Vanegas DO [address] [place] [address], [phone], [facility], L.LKassandraC. 12/05/2024 15:28:04 12/04/2024 text/html Chronic Pain Follow-upReported bypatient.Quality:s harp; stabbing Alleviating factors:opioids Aggravating Factors:movement; stress Analgesia:taking pain medication Aberrant Behaviorworse mood ER follow up Ruy Vanegas DO [address] [place] [address], [phone], [facility], LKassandraLKassandraC. 12/05/2024 15:48:18 12/11/2024 text/html Chronic Pain Follow-upReported bypatient.Quality:s harp; stabbing Alleviating factors:opioids Aggravating Factors:movement; stress Analgesia:taking pain medication Aberrant Behaviorworse mood visit for discharge orders. Ruy Vanegas DO [address] [place] [address], [phone], [facility], FuadLKassandraC. 12/11/2024 16:37:58 OBGyn Episode No OBEpisode recorded.
--- OUTSIDE RECORDS SUMMARY | 2024-12-15 12:59 | XMS_ITS | Encounter Summary ---
Author Organization [facility] Address 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 Name Role Phone Unavailable Primary Care Provider Unavailabl e Reason for Visit * Reason Onset Date Comments Medication Question 12/11/2024 Needs an upd ate on her injury currently in a rehabilitation center Encounter Details Date Type Department Care Team (Late st Contact Info) Description 12/11/2024 Telephone [facility] [place] [address] [place] [address] Te Brooks PA [address] [place] [address] Medication Question (Needs an update on her injury currently in a rehabilitation center) Social History Tobacco Use Types Packs/Day Years Used Date Smoking Tobacco: Never Alcohol Use Standard Drinks/Week Comments Not Currently 0 (1 standard drink = 0.6 oz pur e alcohol) Feeling Safe Answer Date Recorded Are you in a relationship wi th someone who hurts you emotionally and/or physically? No 11/22/2024 Food Insecurity Answer Date Recorded Patient needs follow up regardin 11/22/2024 Transportation Needs Answer Date Record ed Patient needs follow up regardin 11/22/2024 Utility Needs Answer Date Recorded Patient needs follow up regardin 11/22/2024 Comments Unknown Sex and Gender Information Value Date Recorded Sex Assigned at Not on file Legal Sex Female 12:56 PM [employer] Gender Identity Not on file Sexual Orientation Not on file documented as of this encounter Miscellaneous Notes * Telephone Encounter - Meaghan Lopez - 12/11/2024 11:35 AM CDT I tried calling the patient back but no answer. L/M for her to return call. * Telephone Encounter - Elmer Almendarez - 12/11/2024 10:56 AM CDT Needs an update on her injury currently in a rehabilitation center documented in this encounter Plan of Treatment Upcoming Encounters Date Type Department Care Team (Late st Contact Info) Description 01/09/2025 2:40 PM CDT Office Visit [facility] [place] [address] [place] [address] Te Brooks PA [address] [place] [address] documented as of this encounter Visit Diagnoses Not on filedocumented in this encounter
--- OUTSIDE RECORDS SUMMARY | 2024-12-15 12:59 | XMS_ITS | Patient Health Record ---
Author Organization [facility] Address [address] [place] [address] Support Name Relationship Address , Emma Rudolph Emergency Contact Unknown Unavailable Niki Agosto Guarantor Unknown [phone] Care Team Providers Care Gasket Notcher Name Role Phone Charity Salazar MD Primary Care Provider Unavailab Charles Busby Unavailable [phone] Migration, Provider Unavailable Unavailable Brook Quiñonez Unavailable Mateusz Alexa Unavailable [phone] Allergies Allergen (clinical drug ingredient) Drug/Non Drug Allergy documented on EMR Reaction Allergy Type Onset Date Status gabapentin Gabapentin Unknown Drug Allergy Activ e Substance with penicillin structure and antibacterial mechanism of action (substance) Penicillins Unknown Drug Allergy Active Substance with sulfonamide structure and antibacterial mechanism of action (substance) Sulfa Antibiotics Unknown Drug Allergy Active Results Component Value Reference Range Notes zzzUrine Drug Screen (confir mation by instrument) - [id number] Reviewed date:07/25/2024 01:30:25 PM Interpretation: Performing Lab: Notes/Report: Reason For Referral Reason Eval and Treat Gait Training and Overall Deconditioning Diagnosis 1 Unspecified abnormal ities of gait and mobility (R26.9) Referral Organization Pending Sale To [facility] Referring Provider First Name Charles Referring Provider Last Name Ricky Referring Provider Speciality Interventi onal Pain Medicine Referred Provider [facility] Referred Provider Specialty Physical The rapist Referral Priority Routine Medications Medication SIG (Take, Route, Frequency, Duration) Notes Start Date End Date Status Lisinopril *Pick strength-f orm from [facility] for eRX* Active Acetaminophen 325 MG / Hydrocodone Bitartrate 7.5 MG Oral Tablet [[place] 7.5/325] Acetaminophen 325 MG / Hydrocodone Bitartrate 7.5 MG Oral Tablet [[place] 7.5/325] 03/14/2014 Not-Taking Fluoxetine 40 MG Oral Capsule Fluoxetine 40 MG Oral Capsule 04/23/2014 Active Verapamil hydrochloride 120 MG Oral Tablet Verapamil hydrochloride 120 MG Oral Tablet 05/14/2014 Active Percocet 7.5-325 MG 1 tablet as needed Orally every 6 hrs for 30 days As needed Do not exceed 4 per day. Fill on 11-21-24 10/18/2024 Active topiramate 100 MG Oral Tablet topiramate 100 MG Oral Tablet 05/14/2014 Active CeleBREX *[facility] for [facility]* Active Temazepam *Pick strength-f orm from [facility] for eRX* Active Baclofen *Pick strength-f orm from [facility] for eRX* Active Sumatriptan 100 MG Oral Tablet Sumatriptan 100 MG Oral Tablet 05/14/2014 Active SUMAtriptan *Pick strength-f orm from [facility] for eRX* Active ropinirole *Reorder from [facility] for eRx and Interaction Alerts* Active Amitriptyline *Reorder from [facility] for eRx and Interaction Alerts* Active Omeprazole *[facility]* Active Lorazepam 1 MG Oral Tablet Lorazepam 1 MG Oral Tablet 03/14/2014 Active Problems Problem Type SNOMED Code ICD Code Onset Dates Problem Status W/U Status Risk Notes Problem Chronic pain syndrome (942425049) Chronic pain syndrome (G89.4) 4 Active confirmed Problem [id number] Unspecified abnormalities of gait and mobility (R26.9) Active confirmed Problem 57054464 DDD (degenerativ e disc disease), thoracic (M51.34) Active confirmed Problem 808706712 History of hip replacement, unspecified laterality (Z96.649) Active confirmed Vital Signs Height-cm 172.72 cm 10/18/2024 Weight-kg 99.79 kg 10/18/2024 Height 68.00 in 10/18/2024 Weight 220 lbs 10/18/2024 BMI 33.45 kg/m2 10/18/2024 Encounters Encounter Location Date Provider Diagnosis Migrated_Facility 0 0 04/08/2024 Provider Migration Migrated_Facility 0 0 04/09/2024 Provider Migration Pending Sale To [facility] [place] [address] [place] [address] 04/26/2024 Charles García Pending Sale To [facility] [place] [address] [place] [address] 04/26/2024 Charles García Pending Sale To [facility] [place] [address] [place] [place] [address] 04/28/2024 Charles García Pending Sale To [facility] [address] [facility] [address] 04/28/2024 Brook Modi e Chronic pain syndrome G89.4 Pending Sale To [facility] [place] [address] [place] [address] 05/25/2024 Charles García Chronic pain syndrom e G89.4 [facility]ending [facility] [address] [facility] [place] [address] 06/21/2024 Charles García Chronic pain syndrom e G89.4 Pending Sale To [facility] [place] [address] [place] [place] [address] 07/20/2024 Charles García Chronic pain syndrom e G89.4 Pending Sale To [facility] [place] [address] [place] [place] [address] 08/22/2024 Charles García Pending Sale To [facility] [place] [address] [place] [place] [address] 10/05/2024 Charles García Pending Sale To [facility] [place] [address] [place] [place] [address] 02/02/2024 Charles García Pending Sale To [facility] [place] [address] [place] [address] 02/23/2024 Charles García Pending Sale To [facility] [place] [address] [place] [place] [address] 03/29/2024 Charles García Pending Sale To [facility] [place] [address] [place] [address] 05/25/2024 Alexa Child Chronic pain syndrom e G89.4 ; DDD (degenerative disc disease), thoracic M51.34 ; Degeneration of intervertebral disc of lumbar region with discogenic back pain M51.360 ; Failed back syndrome, lumbar M96.1 ; Unspecified abnormalities of gait and mobility R26.9 and lobsterman (current) use of opiate analgesic Z79.891 [facility] [address] [address] 07/20/2024 Alexa Child Chronic pain syndrom e G89.4 ; DDD (degenerative disc disease), thoracic M51.34 ; Degeneration of intervertebral disc of lumbar region with discogenic back pain M51.360 ; Failed back syndrome, lumbar M96.1 ; Unspecified abnormalities of gait and mobility R26.9 and longterm (current) use of opiate analgesic Z79.891 [facility] [address] [address] 09/13/2024 Charles García Chronic pain syndrom e G89.4 ; DDD (degenerative disc disease), thoracic M51.34 ; Degeneration of intervertebral disc of lumbar region with discogenic back pain M51.360 ; Failed back syndrome, lumbar M96.1 ; Unspecified abnormalities of gait and mobility R26.9 and longterm (current) use of opiate analgesic Z79.891 [facility] [address] [address] 10/18/2024 Charles García Chronic pain syndrom e G89.4 ; DDD (degenerative disc disease), thoracic M51.34 ; Degeneration of intervertebral disc of lumbar region with discogenic back pain M51.360 ; Failed back syndrome, lumbar M96.1 ; Unspecified abnormalities of gait and mobility R26.9 and lobsterman (current) use of opiate analgesic Z79.891 [facility] [address] [address] 01/19/2024 Charles García Assessments Encounter Date Diagnosis (ICD Code) Assessment Notes Treatment Notes Treatment Clinical Notes Section Notes 05/25/2024 Chronic pain syndrome (ICD-10 - G89.4) I had a nice discussion with the patient today regarding her chronic pain complaints. She states she is doing well on her current medication regimen. She does report that her friend came over and she was very confused 1 day. She reports that she thinks that she may have forgotten she took her medication already and taking it again. They took her to the hospital and this is what they believe may have happened as well. She states she does have Narcan on hand. She states she now keeps a log of when she takes her medication each time so this does not ever happen again. She denies any other changes since we last seen her any untoward side effects of the medication. She will continue her medication at present level and return to clinic in 2 months to monitor for treatment effectiveness and compliance. 05/25/2024 Chronic pain syndrome (ICD-10 - G89.4) 06/21/2024 Chronic pain syndrome (ICD-10 - G89.4) 07/20/2024 Chronic pain syndrome (ICD-10 - G89.4) I had a nice discussion with the patient today regarding her chronic pain complaints. She states she is doing pretty well on her current medication regimen. At her last visit, she had reported she ended up in the hospital as she thought she forgot she had taken her medication and accidentally overtook some. Since then she has gotten a pillbox and has been very diligent in keeping a record of when she takes her medication to ensure this does not happen again. I did discuss home health for med management as well but she feels she is doing pretty well since she got her pillbox. I did discuss updated advanced imaging with her and she felt like maybe she had had some not long ago. We will check for records at [facility] to see if we can obtain those records. She denies any other changes since we last seen her any untoward side effects of the medication. She will continue her medication at present level and return to clinic in 2 months to monitor for treatment effectiveness and compliance as well as for biannual appointment with Dr. García. RECOMMEND URINE TESTING TODAY Urine drug screening will be performed today to monitor compliance with opioid therapy or to serve as a baseline screen for a patient who may be a candidate for opioid therapy in the future, pending UDS results. We will monitor with in-office testing (rapid testing) today and review the results prior to dispensing prescription. All positive results will be sent for quantitative analysis to ensure accuracy and quantify amounts. Any expected positive results that return negative will also be sent for quantitative analysis. Any questionable read or any medication we cannot test for in the office confidently will be sent for quantitative analysis, as well. Patient has been made aware of this policy and agrees to abide by our urine testing policy. The patient continues with chronic pain requiring treatment to help restore function and improve quality of life. Risks of opioid therapy as well as interaction of opioids with alcohol, illicit drugs, muscle relaxers, and other sedative medications are reviewed briefly with patient again today. The patient has trialed all other reasonable treatment options and uses the medication to alleviate pain in order to remain active and rest with less pain. No clinically relevant medication side effects are noted. Last UDS and [place] [employer] EX[employer]IMENTALIST reviewed today. Patient is advised that best long-term goals include increased activity, core strengthening, proper weight management, coping strategies, avoidance of painful triggers, and targeted interventional therapy. We will see the patient for routine follow up in accordance with all clinic policies. We did remind patient today of current guidelines to decrease opioid when possible. We will continue to stress nonopioid treatment. 05/25/2024 DDD (degenerative disc disease), thoracic (ICD-10 - M51.34) 07/20/2024 Chronic pain syndrome (ICD-10 - G89.4) 09/13/2024 Chronic pain syndrome (ICD-10 - G89.4) I had a nice visit with the patient today regarding her chronic pain issues. Overall, she continues to concern me with her falls and then episode a couple of months ago where she overtook her medication. We discussed all of this and I think it is in her best interest to back away from the pain medication a bit. We will try it for a month and we will also order physical therapy to see how she does. Obviously I do not want to worsen her symptoms but with multiple falls I do not want to contribute to her instability. We will change her over to the 7.5/325mg and see her back in a month. Refer to physical therapy 10/18/2024 Chronic pain syndrome (ICD-10 - G89.4) I had a nice visit with the patient today regarding her chronic pain issues. Overall, she seems to be doing much better. She apparently went into her PCP and they had checked her ears, and she had infections and they were impacted. So they cleaned all that out, and she says she's not had any more falls. She also feels like the 7.5 mg dose is pretty good, so we will continue that for the next couple of months and proceed accordingly. 09/13/2024 DDD (degenerative disc disease), thoracic (ICD-10 - M51.34) 10/18/2024 DDD (degenerative disc disease), thoracic (ICD-10 - M51.34) 05/25/2024 Degeneration of intervertebral disc of lumbar region with discogenic back pain (ICD-10 - M51.360) 07/20/2024 DDD (degenerative disc disease), thoracic (ICD-10 - M51.34) 04/28/2024 Chronic pain syndrome (ICD-10 - G89.4) 07/20/2024 Degeneration of intervertebral disc of lumbar region with discogenic back pain (ICD-10 - M51.360) 05/25/2024 Failed back syndrome, lumbar (ICD-10 - M96.1) 10/18/2024 Degeneration of intervertebral disc of lumbar region with discogenic back pain (ICD-10 - M51.360) 09/13/2024 Degeneration of intervertebral disc of lumbar region with discogenic back pain (ICD-10 - M51.360) 09/13/2024 Failed back syndrome, lumbar (ICD-10 - M96.1) 10/18/2024 Failed back syndrome, lumbar (ICD-10 - M96.1) 07/20/2024 Failed back syndrome, lumbar (ICD-10 - M96.1) 05/25/2024 Unspecified abnormalities of gait and mobility (ICD-10 - R26.9) 05/25/2024 longterm (current) use of opiate analgesic (ICD-10 - Z79.891) 07/20/2024 Unspecified abnormalities of gait and mobility (ICD-10 - R26.9) 09/13/2024 Unspecified abnormalities of gait and mobility (ICD-10 - R26.9) 10/18/2024 Unspecified abnormalities of gait and mobility (ICD-10 - R26.9) 10/18/2024 longterm (current) use of opiate analgesic (ICD-10 - Z79.891) 09/13/2024 longterm (current) use of opiate analgesic (ICD-10 - Z79.891) 07/20/2024 lobsterman (current) use of opiate analgesic (ICD-10 - Z79.891) 09/13/2024 Other Kaleb Sibley am scribing for Dr. Charles García. I, Dr. Charles García, personally performed the services described in this documentation, as scribed by Kaleb Jasmine, and it is both accurate and complete. 10/18/2024 Other Stephany Sibley NCMA, am scribing for Dr. Charles García. I, Dr. Charles García, personally performed the services described in this documentation, as scribed by GEGE Shankar , and it is both accurate and complete. Plan Of Treatment No Information Insurance Providers Payer Name Payer Address Payer Phone Subscriber Number Group Number Insured Name Patient Relationship to Insured Coverage Start Date Coverage End Date [facility] [address] [place] [address] [id number] 1 Niki Agosto Self - patient is the insured [facility] Medicare Replacement [address] [place] [address] [id number] 1 Niki Agosto Self - patient is the insured NOT IN NETWORK - [employer] Medicare Advantage HMO [address] [address] [place] [address] [id number] Niki Agosto Self - patient is the insured Medical (General) History Medical History History ICD Code Problem:Anxiety (finding) , Status :: Ac tive Problem:Anxiety state (finding) , Status :: Active Problem:Arthropathy (disorder) , Status :: Active Problem:Hyperlipidemia (disorder) , Stat us :: Active Problem:Hypertensive disorde r, systemic arterial (disorder) , Status :: Active Problem:Osteoarthritis (disorder) , Stat us :: Active Surgical History Surgery Date(Month/Year) Hip surgery Since 2023 Spinal fusion Since 2020 2021
--- OUTSIDE RECORDS SUMMARY | 2024-12-15 12:59 | XMS_ITS | Encounter Summary ---
Author Organization [facility] Address 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
--- OUTSIDE RECORDS SUMMARY | 2024-12-15 12:59 | XMS_ITS | Clinical Summary ---
Author Organization [facility] Address [address] [place] [address] Phone Care Team Providers Care Outside Rigger Name Role Phone Unavailable Primary Care Provider Unavailabl e Allergies Active Allergy Reactions Criticality Noted Date Comments Gabapentin Unknown 12/06/2024 Penicillins Rash Low 11/21/2024 Sulfa (Sulfonamide Antibiotics) Anaphylaxis High 03/2025 Medications DULoxetine (CYMBALTA) 60 mg Capsule, Delayed Release(E.C.) Take 60 mg by mouth daily. Active celecoxib (CeleBREX) 200 mg capsule Take 200 mg by mouth 2 times daily. Active rOPINIRole (REQUIP) 0.5 mg tablet Take 0.5 mg by mouth daily at bedtime. Active rOPINIRole (REQUIP) 0.25 mg tablet Take 0.25 mg by mouth daily. Active SUMAtriptan (IMITREX) 100 mg tablet Take 100 mg by mouth see administration instructions. Take one tablet by mouth at onset of headache, may repeat once in 24 hours Active lisinopriL (PRINIVIL) 10 mg tablet Take 10 mg by mouth daily. Active baclofen (LIORESAL) 20 mg tablet Take 20 mg by mouth 4 times daily as needed for Pain. Active SUMAtriptan (IMITREX) 50 mg tablet Take 50 mg by mouth every 2 hours as needed for Headaches. may repeat in 2 hours; max dose 200mg in 24 hours Active clonazePAM (KlonoPIN) 1 mg tablet Take 1 mg by mouth every 8 hours as needed for Anxiety. Active acetaminophen (TYLENOL) 500 mg tablet Take 2 Tablets (1,000 mg) by mouth every 8 hours. Take regularly as prescribed for one week, then take every 6-8 hours as needed for pain 45 Tablet 11/28/19 25 Active oxyCODONE (ROXICODONE) 10 mg tabletIndicat ions:Closed torus fracture of distal end of right femur, initial encounter ([facility]) Take 1 Tablet (10 mg) by mouth every 4 hours as needed for Pain or Pain, Break-Through. Max Daily Amount: 60 mg 20 Tablet 11/28/19 Active ergocalcifero l (VITAMIN D2) 50,000 unit capsule Take 1 Capsule (50,000 Units) by mouth every 7 days. 12 Capsule 12/03/19 25 Active aspirin (MARINA CHEWABLE) 81 mg Tablet, Chewable Take 1 Tablet (81 mg) by mouth 2 times daily. Take for 90 days for blood clot prevention. 180 Tablet 11/28/19 25 2024 Active ciprofloxacin HCl (CIPRO) 500 mg tablet Take by mouth. 01/22/20 22 Active levothyroxine 50 mcg tablet levothyroxine 50 mcg tablet 11/22/19 Active oxyCODONE-marisol taminophen (PERCOCET) 7.5-325 mg Tablet Take 1 Tablet by mouth every 6 hours as needed for Pain, Moderate. 2024 Discontinued oxyCODONE-marisol taminophen (PERCOCET) 10-325 mg Tablet Take 1 Tablet by mouth every 6 hours as needed for Pain, Severe. 2024 Discontinued acetaminophen (TYLENOL) 500 mg tablet Take 2 Tablets (1,000 mg) by mouth every 8 hours. Take regularly as prescribed for one week, then take every 6-8 hours as needed for pain 45 Tablet 11/28/19 25 2024 Discontinued ergocalcifero l (VITAMIN D2) 50,000 unit capsule Take 1 Capsule (50,000 Units) by mouth every 7 days. 12 Capsule 12/03/19 25 2024 Discontinued aspirin (MARINA CHEWABLE) 81 mg Tablet, Chewable Take 1 Tablet (81 mg) by mouth 2 times daily. Take for 90 days for blood clot prevention. 180 Tablet 11/28/19 25 2024 Discontinued Active Problems Problem Noted Date Diagnosed Date Acute blood loss anemia 11/26/2024 S/P ORIF hector-prosthetic sup racondylar fracture of Lt femur, 11/23/2024 11/22/2024 Aneurysm of ascending aorta without rupture 11/12 HTN (hypertension), benign 11/21/2024 Hypothyroidism 11/21/2024 GERD (gastroesophageal reflux disease) Migraine headache 11/21/2024 Encounters Date Type Department Care Team Description 12/12/2024 External Device Data ST[facility] ABSTRACTION Provider, Abstract 12/11/2024 Telephone [place] [address] [facility] [address] [place] [address] Te Brooks PA Medication Question (Needs an update on her injury currently in a rehabilitation center) 12/06/2024 1:45 PM CDT Ancillary Procedure [address] [place] [address] Te Brooks PA Closed torus fracture of distal end of right femur, initial encounter ([facility]) 12/06/2024 1:40 PM CDT Office Visit [address] [place] [address] Te Brooks PA S/P ORIF hector-prosthetic supracondylar fracture of Lt femur, 11/23/2024 (Primary Dx) 12/05/2024 Orders Only [address] [place] [address] Te Brooks PA Closed torus fracture of distal end of right femur, initial encounter ([facility]) (Primary Dx) 11/29/2024 External Device Data STL ABSTRACTION Provider, Abstract 11/28/2024 External Device Data STL ABSTRACTION Provider, Abstract 11/28/2024 External Device Data STL ABSTRACTION Provider, Abstract 11/23/2024 2:45 PM CDT - 11/23/2024 5:25 PM CDT Surgery [facility] Operating Room [address] [place] [id number] Maldonado Benson MD FEMUR DISTAL OPEN REDUCTION INTERNAL FIXATION 11/23/2024 9:53 AM CDT Anesthesia Event [facility] Operating Room [address] [place] [address] Tanisha Porter MD Koval, Nick S, POULTRY DRESSER 11/22/2024 Travel 11/21/2024 7:59 PM CDT - 11/27/2024 4:04 PM CDT Hospital Encounter [facility] 3C Ortho Neuro [address] [place] [phone] Hany Neal MD Bell, Ashley Nicole, Hector-prosthetic supracondylar fracture of femur, subsequent encounter Discharge Disposition: Detention Fac(SNF) with Medicare Certification in Anticipation of Skilled Care 11/21/2024 Prep for Surgery [facility] [place] [address] [place] [address] Ajay Ty MD from Last 3 Months Social History Tobacco Use Types Packs/Day Years Used Date Smoking Tobacco: Never Tobacco Cessation:Counseling Given: Not Answered Alcohol Use Standard Drinks/Week Comments Not Currently [...] on file 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 Gender Identity Not on file Sexual Orientation Not on file Last Filed Vital Signs Vital Sign Reading Time Taken Comments Blood Pressure 104/62 12/06/2024 2:05 PM CDT Pulse 107 11/27/2024 3:41 PM CDT Temperature 36.8 C (98.2 F) 11/27/2024 3:41 PM CDT Respiratory Rate 16 11/27/2024 3:41 PM CDT Oxygen Saturation 91% 11/27/2024 3:41 PM CDT Inhaled Oxygen Concentration - - Weight 108 kg (238 lb) 12/06/2024 2:05 PM CDT Height 172.7 cm (5' 8 ) 12/06/2024 2:05 PM CDT Body Mass Index 36.19 12/06/2024 2:05 PM CDT Plan of Treatment Upcoming Encounters Date Type Department Care Team (Late st Contact Info) Description 01/09/2025 2:40 PM CDT Office Visit [facility] [place] [address] [place] [address] Te Brooks PA [address] [place] [address] Health Maintenance Due Date Last Done Comments BREAST CANCER SCREENING 1998 COLORECTAL SCREENING 2003 Colorectal Cancer Screening 2003 FIT-DNA Q 3 years 2003 FIT/FOBT Q 1 year 2003 Flex Sig/CT Colonography Q 5 years 2003 PNEUMOCOCCAL VACCINE 50+ YEA RS (1 of 1 - PCV) 2008 ZOSTER VACCINE (1 of 2) 2008 OSTEOPOROSIS SCREENING 2023 COVID-19 Vaccine ( season) 2024 07/04/2021, 01/10/2021, 09/30/2020 INFLUENZA VACCINE (#1) 2025 04/16/2024, 2021 Pre-Diabetes and Diabetes Screening 11/24/202711/23 DTAP/TDAP/TD VACCINES (2 - T d or Tdap) 07/21/2029 07/21/2019 RSV VACCINE (60+ or ) (1 - 1-dose 75+ series) 2033 Medical Devices Implanted Type Area Intake Specialist Device Identifier Shelf Expiration Date Model / Serial / Lot Clip Ligating Horizon Med Ti 820852 - Csc - [id number] Implanted:Qty: 1 on 11/23/2024 by Maldonado Benson MD at [facility] Clip Left: Leg TELEFLEX- WECK CLOSURE SYS [id number] 06/28/2028 [id number] / / [id number] Clip Ligating Horizon Med Ti 667743 - Csc - [id number] Implanted:Qty: 1 on 11/23/2024 by Maldonado Benson MD at [facility] Clip Left: Leg TELEFLEX- WECK CLOSURE SYS [id number] 06/20/2029 001438 / / [id number] Clip Ligating Horizon Lrg Ti 10.07x12.38mm 585179 - [facility] - [id number] Implanted:Qty: 1 on 11/23/2024 by Maldonado Benson MD at [facility] Clip Left: Leg TELEFLEX- WECK CLOSURE SYS [id number] 11/30/2027 037421 / / [id number] Clip Ligating Horizon Lrg Ti 10.07x12.38mm [id number] - [facility] - [id number] Implanted:Qty: 1 on 11/23/2024 by Maldonado Benson MD at [facility] Clip Left: Leg TELEFLEX- WECK CLOSURE SYS [id number] 12/13/2028012954 / / [id number] Plate Condylar 4.5 Va-Lcp 02124.411 - [id number] Implanted:Qty: 1 on 11/23/2024 by Maldonado Benson MD at [facility] Plate Left: Femur J&J- DEPUY SYNTHES 02.124.41 1 / / Screw Cortex Slftp 3.5x44mm 204.844 - [id number] Implanted:Qty: 1 on 11/23/2024 by Maldonado Benson MD at [facility] Screw Left: Femur J&J- DEPUY SYNTHES 204.844 / / Screw St 4.5x38mm 214.838 - [id number] Implanted:Qty: 1 on 11/23/2024 by Maldonado Benson MD at [facility] Screw Left: Femur J&J- DEPUY SYNTHES 214.838 / / Screw St 4.5x46mm 214.846 - [id number] Implanted:Qty: 1 on 11/23/2024 by Maldonado Benson MD at [facility] Screw Left: Femur J&J- DEPUY SYNTHES 214.846 / / Screw Va Slftp 5.0x70mm Strdrv 02.231.270 - [id number] Implanted:Qty: 1 on 11/23/2024 by Maldonado Benson MD at [facility] Screw Left: Femur J&J- DEPUY SYNTHES 02.231.27 0 / / Screw Va Slftp 5.0x75mm Strdrv 02.231.275 - [id number] Implanted:Qty: 1 on 11/23/2024 by Maldonado Benson MD at [facility] Screw Left: Femur J&J- DEPUY SYNTHES 02.231.27 5 / / Screw Va Slftp 5.0x80mm Strdrv 02.231.280 - [id number] Implanted:Qty: 1 on 11/23/2024 by Maldonado Benson MD at [facility] Screw Left: Femur J&J- DEPUY SYNTHES 02.231.28 0 / / Screw Va Slftp 5.0x85mm Strdrv 02.231.285 - [id number] Implanted:Qty: 1 on 11/23/2024 by Maldonado Benson MD at [facility] Screw Left: Femur J&J- DEPUY SYNTHES 02.231.28 5 / / Screw Va Slftp 5.0x85mm Strdrv 02.231.285 - [id number] Implanted:Qty: 1 on 11/23/2024 by Maldonado Benson MD at [facility] Screw Left: Femur J&J- DEPUY SYNTHES 02.231.28 5 / / Screw Va Slftp 5.0x85mm Strdrv 02.231.285 - [id number] Implanted:Qty: 1 on 11/23/2024 by Maldonado Benson MD at [facility] Screw Left: Femur J&J- DEPUY SYNTHES 02.231.28 5 / / Screw St 4.5x36mm 214.836 - [id number] Implanted:Qty: 1 on 11/23/2024 by Maldonado Benson MD at [facility] Screw Left: Femur J&J- DEPUY SYNTHES 214.836 / / Screw St 4.5x38mm 214.838 - [id number] Implanted:Qty: 1 on 11/23/2024 by Maldonado Benson MD at [facility] Screw Left: Femur J&J- DEPUY SYNTHES 214.838 / / Washer 7.0mm 219.98 - [id number] Implanted:Qty: 1 on 11/23/2024 by Maldonado Benson MD at [facility] Washer Left: Femur J&J- DEPUY SYNTHES 219.98 / / Explanted Type Area Intake Specialist Device Identifier Shelf Expiration Date Model / Serial / Lot Screw St 4.5x70mm 214.870 - [id number] Explanted:Qty: 1 on 11/23/2024 by Maldonado Benson MD at [facility] Screw Left: Femur J&J- DEPUY SYNTHES 214.870 / / Procedures Procedure Name Priority Date/Time Associated Diagnosis Comments XR FEMUR 2 VW LEFT Routine 12/06/2024 3: 05 PM CDT Closed torus fracture of distal end of right femur, initial encounter ([facility]) POC GLUCOSE Routine 11/27/2024 11:31 AM CDT POC GLUCOSE Routine 11/27/2024 7:40 AM CDT CBC WITHOUT DIFFERENTIAL Routine 11/27/2024 3:43 AM CDT POC GLUCOSE Routine 11/26/2024 7:56 PM CDT POC GLUCOSE Routine 11/26/2024 4:27 PM CDT CBC WITHOUT DIFFERENTIAL Routine 11/26/2024 2:49 PM CDT POC GLUCOSE Routine 11/26/2024 11:44 AM CDT POC GLUCOSE Routine 11/26/2024 7:43 AM CDT POC GLUCOSE Routine 11/25/2024 9:25 PM CDT POC GLUCOSE Routine 11/25/2024 4:58 PM CDT HEMOGLOBIN AND HEMATOCRIT Stat 11/25/2024 1:02 PM CDT POC GLUCOSE Routine 11/25/2024 12:10 PM CDT POC GLUCOSE Routine 11/25/2024 7:51 AM CDT BASIC METABOLIC PANEL Routine 11/25/2024 5:07 AM CDT CBC WITH DIFFERENTIAL Routine 11/25/2024 5:07 AM CDT POC GLUCOSE Routine 11/24/2024 9:17 PM CDT POC GLUCOSE Routine 11/24/2024 5:17 PM CDT POC GLUCOSE Routine 11/24/2024 12:08 PM CDT POC GLUCOSE Routine 11/24/2024 7:34 AM CDT VITAMIN D 25 HYDROXY Routine 11/24/2024 1:00 AM CDT BASIC METABOLIC PANEL Routine 11/24/2024 1:00 AM CDT CBC WITH DIFFERENTIAL Routine 11/24/2024 1:00 AM CDT POC GLUCOSE Routine 11/23/2024 8:35 PM CDT POC GLUCOSE Routine 11/23/2024 5:35 PM CDT [place] REMOVAL IMPLANT DEEP 11/23/2024 2:45 PM CDT Other closed fracture of distal end of left femur, initial encounter ([facility]) NY OPEN TX FEMORAL SUPRACONDYLAR FRACTURE W/O XTN 11/23/2024 2:45 PM CDT Other closed fracture of distal end of left femur, initial encounter (CMS/HCC) XR KNEE 1 OR 2 VW LEFT Routine 12:16 PM CDT XR FLUORO LESS THAN 1 HOUR Routine 11/23/2024 12:15 PM CDT PREPARE RED BLOOD CELLS Routine 11/23/2024 11:28 AM CDT PREPARE RED BLOOD CELLS Stat 11/23/2024 11:28 AM CDT POC GLUCOSE Routine 11/23/2024 7:54 AM CDT BASIC METABOLIC PANEL Routine 11/23/2024 6:54 AM CDT CBC WITHOUT DIFFERENTIAL Routine 11/23/2024 6:54 AM CDT HEMOGLOBIN A1C Routine 11/23/2024 6:54 AM CDT XR SHOULDER 2+ VW LEFT Routine 12:[address] CHEST ABDOMEN PELVIS W CONT Routine 11/22/2024 8:[address] FEMUR WO CONTRAST LEFT Stat 11/22/2024 7:43 AM CDT VERIFICATION BLOOD GROUP Stat 11/22/2024 3:20 AM CDT HTN (hypertension), benign TYPE AND SCREEN Routine 11/22/2024 12:02 AM CDT BASIC METABOLIC PANEL Routine 11/22/2024 12:02 AM CDT CBC WITH DIFFERENTIAL Routine 11/22/2024 12:02 AM CDT POC GLUCOSE Routine 11/21/2024 11:29 PM CDT XR CHEST PA OR AP 1 VW Routine 10:22 PM CDT EKG 12-LEAD Routine 11/21/2024 10:08 PM CDT from Last 3 Months Results * XR FEMUR 2 VW LEFT (12/06/2024 3:05 PM CDT) Anatomical Region Laterality Modality Lower Extremity Computed Radiogr aphy Narrative 12/07/2024 12:59 PM CDT AP and lateral views of the left femur reveal S/P ORIF supracondylar femur fracture around IMN. Mild displacement when compared to previous images. Hardware remains intact otherwise. Te [facility] ORDERABLES Fi nal Result * (ABNORMAL) POC GLUCOSE (11/27/2024 11:31 AM CDT) Only the most recent of18 resultswithin the time period is included. Pathologist [facility] GLUCOSE POC 133(H) 74 - 99 mg/dL 11/27/2024 11:31 AM CDT [facility] SPECIMEN SOURCE, GLUCOSE POC Capillary 11/27/2024 11:31 AM CDT [facility] Blood, whole 11/27/2024 11:3 1 AM CDT 11/27/2024 11:41 AM CDT Ashley Neal DO POINT OF CARE TESTING Lorena gurrola Result [facility] CLIA # [id number] [address] [place] [address] * (ABNORMAL) CBC WITHOUT DIFFERENTIAL (11/27/2024 3:43 AM CDT) Only the most recent of3 resultswithin the time period is included. Pathologist [facility] WBC 6.0 4.8 - 10.8 K/uL 11/27/2024 4:10 AM CDT [facility] RBC 2.52(L) 4.20 - 5.40 M/uL 11/27/2024 4:10 AM CDT [facility] HEMOGLOBIN 7.7(L) 12.0 - 16.0 g/dL 11/27/2024 4:10 AM CDT [facility] HEMATOCRIT 25.6(L) 36.0 - 46.0 % 11/27/2024 4:10 AM T [facility] MCV 101.6 84.0 - 103.0 fL 11/27/2024 4:10 AM CDT [facility] MCH 30.6 27.0 - 34.0 pg 11/27/2024 4:10 AM CDT [facility] MCHC 30.1 30.0 - 35.0 g/dL 11/27/2024 4:10 AM CDT [facility] PLATELETS 260 140 - 440 K/uL 11/27/2024 4:10 AM T [facility] MPV 9.4 8.9 - 12.8 fL 11/27/2024 4:10 AM T [facility] RDW 13.8 11.0 - 14.5 % 11/27/2024 4:10 AM T [facility] RDW-STDEV 50.9 37.0 - 54.0 fL 11/27/2024 4:10 AM T [facility] Blood Venipuncture / Unknown 11/27/2024 3:43 AM CDT 11/27/2024 4:04 AM CDT us Ashley Neal DO HEMATOLOGY ORDERABLES Lorena l Result [facility] CLIA # [id number] [address] [place] [address] * (ABNORMAL) HEMOGLOBIN AND HEMATOCRIT (11/25/2024 1:02 PM CDT) [facility] HEMOGLOBIN 7.4(L) 12.0 - 16.0 g/dL 11/25/2024 1:33 PM CDT [facility] HEMATOCRIT 24.3(L) 36.0 - 46.0 % 11/25/2024 1:33 PM CDT [facility] Blood Venipuncture / Unknown 11/25/2024 1:02 PM CDT 11/25/2024 1:22 PM CDT us Ashley Neal DO HEMATOLOGY ORDERABLES Lorena izabela Result [facility] CLIA # [id number] [facility] [address] [address] [place] [address] * (ABNORMAL) CBC WITH DIFFERENTIAL (11/25/2024 5:07 AM CDT) Only the most recent of3 resultswithin the time period is included. Pathologist [facility] WBC 7.2 4.8 - 10.8 K/uL 11/25/2024 5:31 AM T [facility] RBC 2.39(L) 4.20 - 5.40 M/uL 11/25/2024 5:31 AM CDT [facility] HEMOGLOBIN 7.3(L) 12.0 - 16.0 g/dL 11/25/2024 5:31 AM T [facility] HEMATOCRIT 23.9(L) 36.0 - 46.0 % 11/25/2024 5:31 AM T [facility] MCV 100.0 84.0 - 103.0 fL 11/25/2024 5:31 AM T [facility] MCH 30.5 27.0 - 34.0 pg 11/25/2024 5:31 AM T [facility] MCHC 30.5 30.0 - 35.0 g/dL 11/25/2024 5:31 AM T [facility] PLATELETS 192 140 - 440 K/uL 11/25/2024 5:31 AM T [facility] MPV 9.7 8.9 - 12.8 fL 11/25/2024 5:31 AM T [facility] RDW 13.8 11.0 - 14.5 % 11/25/2024 5:31 AM T [facility] RDW-STDEV 50.9 37.0 - 54.0 fL 11/25/2024 5:31 AM CDT [facility] NEUTROPHILS 76(H) 42 - 75 % 11/25/2024 5:31 AM T [facility] LYMPHOCYTES 14(L) 24 - 44 % 11/25/2024 5:31 AM CDT [facility] MONOCYTES 8 2 - 10 % 11/25/2024 5:31 AM T [facility] EOSINOPHILS 1 0 - 7 % 11/25/2024 5:31 AM CDT [facility] BASOPHILS 1 0 - 1 % 11/25/2024 5:31 AM T [facility] IMMATURE GRANULOCYTES 1 0 - 2 % 11/25/2024 5:31 AM T [facility] NEUTROPHIL ABSOLUTE 5.45 2.00 - 8.00 K/uL 11/25/2024 5:31 AM T [facility] LYMPHOCYTE ABSOLUTE 1.04(L) 1.20 - 4.00 K/uL 11/25/2024 5:31 AM T [facility] MONOCYTE ABSOLUTE 0.56 0.10 - 0.60 K/uL 11/25/2024 5:31 AM T [facility] EOSINOPHIL ABSOLUTE 0.06 0.00 - 0.70 K/uL 11/25/2024 5:31 AM [facility] BASOPHILS ABSOLUTE 0.04 0.00 - 0.20 K/uL 11/25/2024 5:31 AM [facility] IMMATURE GRANULOCYTES ABSOLUTE 0.06 0.00 - 0.10 K/uL 11/25/2024 5:31 AM [facility] SMEAR REVIEWED: NA - Not Applicable 11/25/2024 5:31 AM [facility] Blood Venipuncture / Unknown 11/25/2024 5:07 AM CDT 11/25/2024 5:25 AM CDT Maldonado Benson MD HEMATOLOGY ORDERABLES F inal Result [facility] CLIA # [id number] [address] [address] [place] [address] * (ABNORMAL) BASIC METABOLIC PANEL (11/25/2024 5:07 AM CDT) Only the most recent of4 resultswithin the time period is included. SODIUM 136 136 - 145 mmol/L 11/25/2024 6:25 AM T [facility] POTASSIUM 3.7 3.5 - 5.1 mmol/L 11/25/2024 6:25 AM T [facility] CHLORIDE 100 98 - 107 mmol/L 11/25/2024 6:25 AM T [facility] CO2 28 22 - 29 mmol/L 11/25/2024 6:25 AM T [facility] CALCIUM 8.6(L) 8.8 - 10.2 mg/dL 11/25/2024 6:25 AM T [facility] BUN 9 8 - 23 mg/dL 11/25/2024 6:25 AM T [facility] CREATININE 0.45(L) 0.51 - 0.95 mg/dL 11/25/2024 6:25 AM [facility] GLUCOSE 140(H) 74 - 99 mg/dL 11/25/2024 6:25 AM [facility] GFR >60 >=60 mL/min/1. 73 sq meter 11/25/2024 6:25 AM [facility] Comment:eGFR calculated with 2020 CKD-EPI equation. Vegetarian diet, extremely high or low muscle mass, and may affect results. Cystatin C with Glomerular Filtration Rate is a suitable alternative for these patients. ANION GAP 8(L) 9 - 20 mmol/L 11/25/2024 6:25 AM T [facility] Blood Venipuncture / Unknown 11/25/2024 5:07 AM CDT 11/25/2024 5:25 AM CDT Maldonado Benson MD CHEMISTRY ORDERABLES Fi nal Result Performing Organization Address [facility] Co de Phone Number [facility] [employer] [facility] CLIA # [id number] [facility] [id number] * (ABNORMAL) VITAMIN D 25 HYDROXY (11/24/2024 1:00 AM CDT) VITAMIN D TOTAL (25OH) 16(L) 30 - 100 ng/mL 11/24/2024 10:52 PM CDT [facility] Blood Venipuncture / Unknown 11/24/2024 1:00 AM CDT 11/24/2024 1:04 AM CDT Narrative [facility] [employer] [facility] - 11/24/2024 10:52 PM CDT Interpretive Data Chart: Deficient: 0 - 20 ng/mL Insufficient: 21 - 29 ng/mL Sufficient: 30 - 100 ng/mL Increased Risk of Hypercalciuria: >100 ng/ml Toxic: >150 ng/ml Lexy Mercedes NP CHEMISTRY ORDERABLES Lorena l Result Performing Organization Address [facility] Co de Phone Number [facility] CLIA # [id number] [facility] [address] * XR KNEE 1 OR 2 VW LEFT (11/23/2024 12:16 PM CDT) Anatomical Region Laterality Modality Lower Extremity Computed Radiogr aphy 11/23/2024 12:1 6 PM CDT Impressions 11/23/2024 2:08 PM CDT IMPRESSION: Please see below. Exam: XR KNEE 1 OR 2 VW LEFT Date/Time of Exam: 11/23/2024 12:16 PM Reason For Exam: Pain. Diagnosis: HTN (hypertension), benign; Laboratory test. Findings: Fluoroscopy provided for surgical intervention of distal left femur. Please refer to formal operative note. Narrative Procedure Note Rolf Parisi MD - 11/23/2024 IMPRESSION: Please see below. Exam: XR KNEE 1 OR 2 VW LEFT Date/Time of Exam: 11/23/2024 12:16 PM Reason For Exam: Pain. Diagnosis: HTN (hypertension), benign; Laboratory test. Findings: Fluoroscopy provided for surgical intervention of distal left femur. Please refer to formal operative note. us Maldonado Benson MD DIAGNOSTIC IMAGING ORDMat [place] Final Result * XR FLUORO LESS THAN 1 HOUR (11/23/2024 12:15 PM CDT) Narrative 11/23/2024 12:16 PM CDT Order information only. Exam was auto-finalized. us Maldonado Benson MD DIAGNOSTIC IMAGING ORDE DENNIS Final Result * PREPARE RED BLOOD CELLS (11/23/2024 11:28 AM CDT) Only the most recent of2 resultswithin the time period is included. [facility] COMPONENT TYPE [id number] [facility] COMPONENT IDENTIFICATION [id number] [facility] ABO O [facility] RH POS [facility] CROSSMATCH Compatible [facility] COMPONENT STATUS Returned [facility] [place] COMPONENT EXPIRATION DATE/TIME [id number] [facility] COMPONENT CODING SYSTEM 5100 [facility] VOLUME, BLOOD PRODUCT 350 [facility] 11/23/2024 11:2 8 AM CDT Maldonado Benson MD LAB TRANSFUSION ORDERAB LES Edited Result - Final [facility] CLIA#[id number] [place] [address], * (ABNORMAL) HEMOGLOBIN A1C (11/23/2024 6:54 AM CDT) HEMOGLOBIN A1C 5.9(H) <=5.6 % 11/23/2024 11:59 AM CDT [facility] EST. AVG GLUCOSE, A1C 123 mg/dL 11/23/2024 11:59 AM CDT [facility] Blood Venipuncture / Unknown 11/23/2024 6:54 AM CDT 11/23/2024 7:53 AM CDT Narrative [facility] - 11/23/2024 11:59 AM CDT HGB A1C INTERPRETATION NORMAL: <5.7% PRE-DIABETES: 5.7 - 6.4% DIABETES: 6.5% OR GREATER Ashley Neal DO CHEMISTRY ORDERABLES Final Result [facility] CLIA # [id number] [address] [place] [id number] * XR SHOULDER 2+ VW LEFT (11/22/2024 12:10 PM CDT) Anatomical Region Laterality Modality Upper Extremity Computed Radiogr aphy 11/22/2024 12:1 0 PM CDT Impressions 11/22/2024 12:18 PM CDT IMPRESSION: Please see below. Exam: XR SHOULDER 2+ VW LEFT Date/Time of Exam: 11/22/2024 12:10 PM REASON FOR EXAM: Trauma. DIAGNOSIS: HTN (hypertension), benign; Laboratory test. Findings: There is mild joint space narrowing and osteophytosis at the glenohumeral joint and acromioclavicular joint. No visible fracture is identified. Cervicothoracic spondylosis is partially imaged. There may be old healed posterolateral left rib fractures. IMPRESSION: Degenerative changes of the shoulder without visible acute osseous injury. Narrative Procedure Note Charles Benitez MD - 11/22/2024 IMPRESSION: Please see below. Exam: XR SHOULDER 2+ VW LEFT Date/Time of Exam: 11/22/2024 12:10 PM REASON FOR EXAM: Trauma. DIAGNOSIS: HTN (hypertension), benign; Laboratory test. Findings: There is mild joint space narrowing and osteophytosis at the glenohumeral joint and acromioclavicular joint. No visible fracture is identified. Cervicothoracic spondylosis is partially imaged. There may be old healed posterolateral left rib fractures. IMPRESSION: Degenerative changes of the shoulder without visible acute osseous injury. us Lexy Mercedes NP DIAGNOSTIC IMAGING ORDERA BLES Final Result * CT CHEST ABDOMEN PELVIS W CONT (11/22/2024 8:48 AM CDT) Anatomical Region Laterality Modality Chest Computed Tomogra phy 11/22/2024 8:42 AM CDT Impressions 11/22/2024 9:00 AM CDT IMPRESSION: Please see below. Exam: CT CHEST ABDOMEN PELVIS W CONT Date/Time of Exam: 11/22/2024 8:48 AM Reason For Exam: Lymphadenopathy, chest or axilla. Diagnosis: HTN (hypertension), benign; Laboratory test. Technique: Axial tomograms obtained through the chest, abdomen and pelvis with Isovue 300 intravenous contrast, 75 mL. Findings: No pleural effusion. Mild pleural parenchymal scarring right hemithorax. No consolidating airspace disease or focal concerning pulmonary lesion. Mildly dilated 4.3 cm ascending thoracic aorta. No axillary or intrathoracic lymphadenopathy. No ascites or free air. Bladder decompressed with Portillo catheter. Nonspecific appearing gynecologic organs given CT limitation. No obstructive pattern of bowel. No CT evidence for appendicitis. Abdominal aorta nonaneurysmal. No inguinal, abdominal or pelvic lymphadenopathy. Solitary gallstone. Dilated gallbladder. Liver and spleen unremarkable. Small nonobstructing right renal calculus. Left kidney unremarkable. No hydronephrosis. Small periampullary duodenal diverticulum. Pancreas and adrenals within normal limits. Small fat-containing umbilical hernia. Fixation hardware of left hip. Old traumatic deformity of ribs of both sides of thorax. Extensive thoracolumbar spinal hardware without gross complication. IMPRESSION: 1. No lymphadenopathy by size criteria. 2. Incidental findings include 4.3 cm dilated ascending thoracic aorta, cholelithiasis with dilated gallbladder of which further correlation with dedicated gallbladder ultrasound may be of benefit, right-sided nephrolithiasis and old traumatic deformity of several ribs of both sides of thorax. Narrative Procedure Note Rolf Parisi MD - 11/22/2024 IMPRESSION: Please see below. Exam: CT CHEST ABDOMEN PELVIS W CONT Date/Time of Exam: 11/22/2024 8:48 AM Reason For Exam: Lymphadenopathy, chest or axilla. Diagnosis: HTN (hypertension), benign; Laboratory test. Technique: Axial tomograms obtained through the chest, abdomen and pelvis with Isovue 300 intravenous contrast, 75 mL. Findings: No pleural effusion. Mild pleural parenchymal scarring right hemithorax. No consolidating airspace disease or focal concerning pulmonary lesion. Mildly dilated 4.3 cm ascending thoracic aorta. No axillary or intrathoracic lymphadenopathy. No ascites or free air. Bladder decompressed with Portillo catheter. Nonspecific appearing gynecologic organs given CT limitation. No obstructive pattern of bowel. No CT evidence for appendicitis. Abdominal aorta nonaneurysmal. No inguinal, abdominal or pelvic lymphadenopathy. Solitary gallstone. Dilated gallbladder. Liver and spleen unremarkable. Small nonobstructing right renal calculus. Left kidney unremarkable. No hydronephrosis. Small periampullary duodenal diverticulum. Pancreas and adrenals within normal limits. Small fat-containing umbilical hernia. Fixation hardware of left hip. Old traumatic deformity of ribs of both sides of thorax. Extensive thoracolumbar spinal hardware without gross complication. IMPRESSION: 1. No lymphadenopathy by size criteria. 2. Incidental findings include 4.3 cm dilated ascending thoracic aorta, cholelithiasis with dilated gallbladder of which further correlation with dedicated gallbladder ultrasound may be of benefit, right-sided nephrolithiasis and old traumatic deformity of several ribs of both sides of thorax. us Ashley Neal DO CT ORDERABLES Final Resu lt * CT FEMUR WO CONTRAST LEFT (11/22/2024 7:43 AM CDT) Anatomical Region Laterality Modality Lower Extremity Computed Tomogra phy 11/22/2024 7:31 AM CDT Impressions 11/22/2024 7:59 AM CDT IMPRESSION: Please see below. Exam: CT FEMUR WO CONTRAST LEFT Date/Time of Exam: 11/22/2024 7:43 AM Reason For Exam: Upper leg trauma. Diagnosis: HTN (hypertension), benign; Laboratory test. Technique: CT of the left femur was performed without the administration of intravenous contrast. Comparison: None. Findings: There are postsurgical changes related to open reduction and internal fixation of a remote healed proximal to mid femoral diaphyseal fracture with grossly intact-appearing hardware resulting in beam hardening artifact which limits detail. There is an acute comminuted fracture involving the distal femoral metadiaphysis with displacement measuring up to 2.7 cm. The osseous structures appear otherwise intact. The joints are anatomically aligned. There are moderate degenerative changes involving the hip. There is a small knee joint effusion. There is edema and hemorrhage within the soft tissues and musculature about the distal femoral fracture site. There is no evidence of a discrete fluid collection or measurable hematoma. IMPRESSION: Displaced distal femoral metadiaphyseal fracture. Narrative Procedure Note Charles Booth, DO - 11/22/2024 IMPRESSION: Please see below. Exam: CT FEMUR WO CONTRAST LEFT Date/Time of Exam: 11/22/2024 7:43 AM Reason For Exam: Upper leg trauma. Diagnosis: HTN (hypertension), benign; Laboratory test. Technique: CT of the left femur was performed without the administration of intravenous contrast. Comparison: None. Findings: There are postsurgical changes related to open reduction and internal fixation of a remote healed proximal to mid femoral diaphyseal fracture with grossly intact-appearing hardware resulting in beam hardening artifact which limits detail. There is an acute comminuted fracture involving the distal femoral metadiaphysis with displacement measuring up to 2.7 cm. The osseous structures appear otherwise intact. The joints are anatomically aligned. There are moderate degenerative changes involving the hip. There is a small knee joint effusion. There is edema and hemorrhage within the soft tissues and musculature about the distal femoral fracture site. There is no evidence of a discrete fluid collection or measurable hematoma. IMPRESSION: Displaced distal femoral metadiaphyseal fracture. us Hany Neal MD CT ORDERABLES Final Resu lt * VERIFICATION BLOOD GROUP (11/22/2024 3:20 AM CDT) ABO GROUP O 11/22/2024 4:00 AM T [facility] RH (D) TYPE Positive 11/22/2024 4:00 AM T [facility] Blood Venipuncture / Unknown 11/22/2024 3:20 AM CDT 11/22/2024 3:23 AM CDT Hany Neal MD BLOOD BANK ORDERABLES Lorena l Result Performing Organization Address [facility] Co de Phone Number [facility] CLIA#[id number] [address] [place] [address], * TYPE AND SCREEN (11/22/2024 12:02 AM CDT) ABO GROUP O 11/22/2024 2:35 AM CDT [facility] RH (D) TYPE Positive 11/22/2024 2:35 AM CDT [facility] ANTIBODY SCREEN Negative 11/22/2024 2:35 AM CDT [facility] Blood Venipuncture / Unknown 11/22/2024 12:02 AM CDT 11/22/2024 12:30 AM CDT Hany Neal MD BLOOD BANK ORDERABLES Edit ed Result - Final Performing Organization Address [facility] Co de Phone Number [facility] CLIA#[id number] [address] [place] [address], * XR CHEST PA OR AP 1 VW (11/21/2024 10:22 PM CDT) Anatomical Region Laterality Modality Chest Computed Radiogr aphy 11/21/2024 10:0 5 PM CDT Impressions 11/22/2024 7:14 AM CDT IMPRESSION: Somewhat prominent density along the right hilum and right-sided upper mediastinum. Underlying mass, lymphadenopathy or aortic aneurysm cannot be excluded. Consider further evaluation with CT. Old right rib fractures. Thoracolumbar spinal fusion hardware. Remainder unremarkable. The above radiologist's report is discrepant with regards to the initial interpretation offered by the [facility] interpreting provider. The discrepancy was called to the ED charge nurse or attending inpatient team at the time of image interpretation. Narrative 11/22/2024 7:14 AM CDT Exam: Radiographs: XR CHEST PA OR AP 1 VW Indication: See Reason for Exam Comparison: None Procedure Note Charles Reynolds MD - 11/22/2024 Exam: Radiographs: XR CHEST PA OR AP 1 VW Indication: See Reason for Exam Comparison: None IMPRESSION: Somewhat prominent density along the right hilum and right-sided upper mediastinum. Underlying mass, lymphadenopathy or aortic aneurysm cannot be excluded. Consider further evaluation with CT. Old right rib fractures. Thoracolumbar spinal fusion hardware. Remainder unremarkable. The above radiologist's report is discrepant with regards to the initial interpretation offered by the [facility] interpreting provider. The discrepancy was called to the ED charge nurse or attending inpatient team at the time of image interpretation. 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: [id number] : 1960 Requested By: Order Number: [id number] Reading MD: Merlin Madison Measurements Intervals [place] Rate: 105 P: 42 [place]: 164 QRS: 4 QRSD: 98 T: 21 QT: 344 QTc: 454 Interpretive Statements Sinus tachycardia Septal infarct, age undetermined Abnormal ECG Electronically Signed On 11-23-2024 18:44:30 CDT by Merlin Madison Procedure Note Merlin Madison MD - 11/23/[address] [address] Test Date: 2024-11-21 Pat Name: LIZZIE LADD Department: 12 Room: [address] [place] [address] Gender: F 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: [id number] : 1960 Requested By: Order Number: [id number] Reading MD: Merlin Madison Measurements Intervals [place] Rate: 105 P: 42 [place]: 164 QRS: 4 QRSD: 98 T: 21 QT: 344 QTc: 454 Interpretive Statements Sinus tachycardia Septal infarct, age undetermined Abnormal ECG Electronically Signed On 11-23-2024 18:44:30 CDT by Merlin Madison us Hany Neal MD ECG ORDERABLES Final Resu lt INTERFACE SYSTEM Refer to clinic/hospital department from Last 3 Months Insurance [facility] DUAL ADVANTAGE [facility] MEDICAID [place] Advance Directives For more information, please contact: [phone] * Default Full Code - Needs Discussion (Latest Code Status on File) Date Activated Date Inactivated Comments 11/23/2024 6:20 PM 11/27/2024 6:09 PM * Default Full Code - Needs Discussion Date Activated Date Inactivated Comments 11/21/2024 9:55 PM 11/23/2024 2:52 PM
--- NOTE | 2024-12-15 13:01 | W.ED.EXTPRO ---
HPI - Extremity Problem General: Chief complaint: Extremity Problem,Nontraumatic Stated complaint: left foot swelling Time Seen by Provider: 12/15/24 12:57 History of Present Illness: 64-year-old female presents to the emergency room with complaints of leg swelling and discomfort. Patient was seen here approximately 3 weeks ago at that time she had a distal femur fracture that was quite complicated ultimately she was transferred to [facility] for definitive care she had an open reduction internal fixation after discharge she was discharged to long term for a time and 2 days ago was discharged home she has noticed increased pain and swelling in her legs since then. She has not had any chest pain or shortness of breath. Associated symptoms: Deny chest pain, fever(s) or rash Related Data Home Medications ?Medication ?Instructions ?Recorded ?Confirmed levothyroxine 50 mcg capsule 50 mcg PO QAM 07/04/19 08/30/24 duloxetine 30 mg capsule,delayed 60 mg PO DAILY 09/10/20 08/30/24 release (Cymbalta) omeprazole 40 mg capsule,delayed 40 mg PO DAILY 07/26/23 08/30/24 release ropinirole 0.5 mg tablet 0.5 mg PO BEDTIME 07/26/23 08/30/24 sumatriptan succinate 100 mg tablet See Rx Instructions .Route 08/23/23 08/30/24 .COMPLEX PRN Migraine Headache albuterol sulfate 90 mcg/actuation 2 puff inhalation Q4H PRN Wheezing 04/15/24 08/30/24 aerosol inhaler alendronate 70 mg tablet See Rx Instructions .Route .COMPLEX 04/15/24 08/30/24 lisinopril 10 mg tablet 10 mg PO DAILY 04/15/24 08/30/24 oxycodone-acetaminophen 10 mg-325 1 tab PO Q6H PRN Pain 04/15/24 08/30/24 mg tablet celecoxib 200 mg capsule 200 mg PO BID 06/02/24 08/30/24 aspirin 325 mg tablet (Yevgeniy 650 mg PO Q6H PRN Fever Or Pain 08/09/24 08/30/24 Aspirin) multivitamin with minerals-folic 1 tab PO DAILY 08/09/24 08/30/24 acid 0.4 mg tablet naloxone 4 mg/actuation nasal spray See Rx Instructions .Route .COMPLEX 08/09/24 08/30/24 ropinirole 0.25 mg tablet 0.25 mg PO DAILY 08/09/24 08/30/24 sumatriptan succinate 50 mg tablet See Rx Instructions .Route .COMPLEX 08/09/24 08/30/24 Previous Rx's ?Medication ?Instructions ?Recorded baclofen 20 mg tablet 20 mg PO QID PRN spasms 30 days 05/30/20 #120 tabs ketorolac 10 mg tablet 10 mg PO Q8H #30 tabs 08/17/24 Allergies Allergy/AdvReac Type Severity Reaction Status Date / Time gabapentin Allergy Severe ADR-Halluci Verified 08/30/24 14:55 nating Penicillins Allergy RASH Verified 08/30/24 14:55 Sulfa (Sulfonamide Allergy ANAPHYLAXIS Verified 08/30/24 14:55 Antibiotics) Review of Systems Const: Denies: fever(s) or chills Card: Denies: chest pain Resp: Denies: dyspnea GI: Denies: abdominal pain : Denies: dysuria, urinary frequency or urinary urgency Musc: Denies: neck pain or back pain Skin/Breast: Denies: rash PFSH ED PFSH: Medical History Vertebral compression fracture Chronic pain syndrome Lumbar radiculopathy Bilateral edema of lower extremity At risk for polypharmacy Altered mental status Chronic hypertension Diagnosed at the age of 14 and controlled on medication managed by primary care provider. Anxiety and depression Currently on Cymbalta managed by her primary care provider. Hypothyroid Currently on levothyroxine managed by PMD Chronic low back pain without sciatica Currently on hydrocodone and baclofen managed by the pain clinic Surgical History S/P spinal fusion History of back surgery 10/2020---jef placed in back S/P breast biopsy 2000-left breast-benign History of dental surgery tooth extraction Hx of section 03/26/89 History of ankle surgery 2006--LEFT x3. In [place] Family History Mother Family history of thyroid problem Thyroid disease Diabetes Hypertension Father Brain aneurysm Denies family history of Colon cancer Ovarian cancer DVT (deep venous thrombosis) Heart disease Breast cancer Suicide Pulmonary embolism Uterine cancer Social History (Reviewed 12/21/24 @ 07:48 by ADNNY Pendleton Smoking and tobacco/nicotine status: never used tobacco/nicotine Alcohol intake: current Alcohol intake frequency: 0-2 Drinks per Day Substance/Drug Use: never Physical Exam Const: COMMON NORMALS: no acute distress GENERAL APPEARANCE: cooperative and comfortable ORIENTATION/CONSCIOUSNESS: Yes awake, Yes oriented to person, Yes oriented to place and Yes oriented to time HENMT: COMMON NORMALS: normocephalic, atraumatic and hearing grossly normal bilaterally HEAD & SCALP: normocephalic and atraumatic Resp: COMMON NORMALS: normal respiratory effort, No retractions, No use of accessory muscles and clear to auscultation bilaterally AUSCULTATION: clear to auscultation bilaterally Cardio: COMMON NORMALS: regular rate, regular rhythm and No murmurs present (Cardio) RATE: regular rate RHYTHM: regular rhythm GI: COMMON NORMALS: Soft to palpation and No hepatosplenomegaly present AUSCULTATION: Yes normoactive bowel sounds PALPATION: Yes Soft to palpation, No Tenderness to palpation present (GI), No Guarding due to palpation present (GI) and Yes No hepatosplenomegaly present Extremity: COMMON NORMALS: normal to inspection, capillary refill normal and no calf tenderness OTHER: Examination of the left leg wound is healing well with multiple Steri-Strips in place is removed there is no evidence of dehiscence redness erythema. Moderate swelling and discomfort with a positive Homans on the left lower leg. There is some distal medial thigh discomfort as well. Neuro: SENSORIUM/ORIENTATION: Yes oriented to person, Yes oriented to place and Yes oriented to time Skin: COMMON NORMALS: no rashes or lesions noted GENERAL SKIN EXAM: no rashes or lesions noted Course Vital Signs: Vital signs: Vital Signs Temperature 98.4 F 12/15/24 12:41 Pulse Rate 85 12/15/24 14:11 Respiratory Rate 17 12/15/24 12:41 Blood Pressure 138/87 12/15/24 14:11 Pulse Oximetry 92 12/15/24 14:11 Oxygen Delivery Me thod Room Air 12/15/24 12:41 MDM - Extremity (Nontraumatic) Medical Decision Making Venous duplex negative for acute DVT. Recommend elevating leg whenever she is able some of this in case edema that is dependent with changed activities to living in the long term. Follow-up with primary care as scheduled. Lab Data Radiology Impressions Venous Duplex 12/15/24 12:57 IMPRESSION: No evidence of deep vein thrombosis. All radiology interpretation(s) finalized by discharge Discharge Plan Discharge Patient Disposition: Home Clinical Impression: Left leg pain, Leg edema, left Condition: Stable Prescriptions: No Action baclofen 20 mg tablet 20 mg PO QID PRN (Reason: spasms) 30 Days Qty: 120 1RF levothyroxine 50 mcg capsule 50 mcg PO QAM duloxetine [Cymbalta] 30 mg capsule,delayed release(DR/EC) 60 mg PO DAILY omeprazole 40 mg capsule,delayed release(DR/EC) 40 mg PO DAILY ropinirole 0.5 mg tablet 0.5 mg PO BEDTIME ketorolac 10 mg tablet 10 mg PO Q8H Qty: 30 0RF Rx Instructions: maximum total duration of 5 days from all oral, intranasal, or parenteral formulations sumatriptan succinate 100 mg tablet See Rx Instructions .ROUTE .COMPLEX PRN (Reason: Migraine Headache) Rx Instructions: TAKE 1 TABLET BY MOUTH at ONSET of headache, MAY REPEAT ONCE in 24 hours aspirin [Yevgeniy Aspirin] 325 mg Tablet 650 mg PO Q6H PRN (Reason: Fever Or Pain) sumatriptan succinate 50 mg tablet See Rx Instructions .ROUTE .COMPLEX Rx Instructions: TAKE 1 TABLET BY MOUTH at ONSET of headache, MAY REPEAT ONCE in 24 hours ropinirole 0.25 mg tablet 0.25 mg PO DAILY multivit with min-folic acid [Daily Multiple For Women 50+] 0.4 mg Tablet 1 tab PO DAILY naloxone 4 mg/actuation spray,non-aerosol See Rx Instructions .ROUTE .COMPLEX Rx Instructions: intranasally ;CALL 911. Use one full spray in one nostril one time. Repeat every 2-3 minutes as needed if no or minimal response. alendronate 70 mg tablet See Rx Instructions .ROUTE .COMPLEX Rx Instructions: 70 mg orally by mouth every week oxycodone-acetaminophen 10-325 mg tablet 1 tab PO Q6H MDD 4 PRN (Reason: Pain) lisinopril 10 mg tablet 10 mg PO DAILY albuterol sulfate 90 mcg/actuation HFA aerosol inhaler 2 puff INHALATION Q4H PRN (Reason: Wheezing) celecoxib 200 mg capsule 200 mg PO BID Discharge Orders: Discharge ED (Routine); Ordered 12/15/24 Ordered By: Champ Palma Referrals: Charity Salazar MD [Primary Care Provider, Internal Medicine] Discharge Diet: Usual diet Discharge Activity: Resume usual activity Patient Instructions: Opioid Safety, Pain Management, Patient Portal & [place] Instructions Activity Restrictions/Additional Instructions: [facility]. It is very important that you follow up as instructed or that you return to the Emergency Department should you have concerns or if your condition changes or worsens in any way. You were seen in the emergency room with complaints of swelling and discomfort in your left lower leg. Ultrasound done of your leg does not show any blood clot. There is no sign of infection in the leg or around the wound from your recent surgery. Suspect this swelling is due to dependent edema as you become more active while recovering from your surgery. Follow-up with your orthopedic surgeon or primary care doctor as needed Print Language: Romanian Coding Level of Care Code ED Cloth Pattern Maker for Jade Gracia
[2024-12-15 14:11] VITALS: BP 138/87; PULSE 85; O2SAT 92
== END 2024-12-15 14:33 | disposition home or self-care (01) ==
PROVIDERS: Emergency Provider Family Medicine; PCP Internal Medicine
DX: M79.605 Pain in left leg (principal); R60.0 Localized edema; Z79.82 Long term (current) use of aspirin
CPT/HCPCS: 93971; 99284

== ENCOUNTER 2024-12-26 20:28 | Emergency (ER) | payer MEDICARE, MEDICAID, SELFPAY ==
--- OUTSIDE RECORDS SUMMARY | 2024-12-26 20:32 | XMS_ITS | Data Portability ---
Author Organization [facility] Address [address] [address] Assessment No assessment recorded. Plan of Treatment [...] By Organization Details Last Modified Time 11/16/2023 [id number] blood pressure too low, will d/c lisinopril. Weight down some have nursing monitor. [email or web address] Not available 11/16/2023 14:04:56 11/18/2023 [id number] Planning to d/c home. Will need home health eval and tx. f/u with pcp 7-14 days after discharge. Will need manual wheelchair d/t fracture. YASMEEN 6 months. [email or web address] Not available 11/18/2023 13:52:30 11/30/2024 [id number] Fall at home resulted in fracture, admitted to snf for therapy. C/o constipation, will schedule daily miralax. complaining of left shoulder pain; no xray found in hospital [email or web address] Not available 12/05/2024 15:27:51 12/04/2024 [id number] Started on Macrobid, will not cover changed to cipro. Will give enemas x 2 [email or web address] Not available 12/04/2024 15:59:57 12/11/2024 [id number] Planning to d/c home soon. [place] [facility] [place] need [place] f/u with pcp 7-14 days after discharge. [email or web address] Not available 12/11/2024 16:33:32 Reason for Referral None Reported. Problems Name Problem SNOMED Code Status Onset Date Resolution Date Notes Provider Name and Address Organization Details Recorded Time Narcotic drug user 76343030 Active 2023 [facility] 14:18:04 Closed intertroch anteric fracture of left femur 2038151249959 9104 Active [address] [facility] 14:18:05 Essential hypertensi on 39426323 Active [address] [facility] 14:04:35 Problem Notes None recorded. Medical [...] Address Organization Details Last Updated DateTime 4 375357. 88 g 80 /min 20 /min 97.8 [degF] 98 % 98 % 102/58 mm[Hg] [facility] TIPTON [facility] 14:03:29 Date Recorded Body weight Heart rate Respiratory rate Body temperature Oxygen saturation Oxygen saturation in Arterial blood by Pulse oximetry Systolic And Diastolic Provider Name and Address Organization Details Last Updated DateTime 4 518147. 28 g 80 /min 20 /min 97.7 [degF] 90 % 90 % 94/59 mm[Hg] [facility] 4 13:49:56 Date Recorded Body weight Heart rate Respiratory rate Body temperature Oxygen saturation Oxygen saturation in Arterial blood by Pulse oximetry Systolic And Diastolic Provider Name and Address Organization Details Last Updated DateTime 5 561176. 21 g 97 /min 19 /min 98.17 [degF] 92 % 92 % 96/59 mm[Hg] [facility] 5 14:59:11 Date Recorded Body weight Heart rate Respiratory rate Body temperature Oxygen saturation Oxygen saturation in Arterial blood by Pulse oximetry Systolic And Diastolic Provider Name and Address Organization Details Last Updated DateTime 5 291899. 21 g 89 /min 20 /min 97.1 [degF] 96 % 96 % 114/73 mm[Hg] [facility] 5 15:55:36 Date Recorded Body weight Heart rate Respiratory rate Body temperature Oxygen saturation Oxygen saturation in Arterial blood by Pulse oximetry Systolic And Diastolic Provider Name and Address Organization Details Last Updated DateTime 5 418270. 21 g 84 /min 16 /min 98.2 [degF] 93 % 93 % 104/64 mm[Hg] [facility] 5 16:31:37 Social History None recorded. Functional Status None recorded. Mental Status None recorded. Family History Nothing Reported. Medical History No medical history recorded. Gynecological HistoryNo gynecological history recorded. Obstetrics History GPAL:G 0 P 0 0 0 0 Immunizations Vaccine Type Date Status Note Provider Nam e and Address Organization Details Recorded Time Tdap 07/21/2019 completed Not Available [facility] 12/11/2024 14:26:26 COVID-19, mRNA, LNP-S, PF, 100 mcg/0.5mL dose or 50 mcg/0.25mL dose 09/30/2020 completed Not Available [facility] 14:26:26 COVID-19, mRNA, LNP-S, PF, 100 mcg/0.5mL dose or 50 mcg/0.25mL dose 01/10/2021 completed Not Available [facility] 5 14:26:26 COVID-19, mRNA, LNP-S, PF, 100 mcg/0.5mL dose or 50 mcg/0.25mL dose 07/04/2021 completed Not Available [facility] 5 14:26:26 Influenza, split virus, quadrivalent, PF 04/23/2022 completed Not Available [facility] 5 14:26:26 Influenza, split virus, quadrivalent, PF 04/16/2024 completed Not Available [facility] 5 14:26:26 Past Encounters Encounter ID Performer Location Encounter Start Date Encounter Closed Date Diagnosis/Indication Diagnosis SNOMED-CT Code Diagnosis ICD10 Code Diagnosis Note [id number] Ruy Vanegas DO [facility]) [address] [place] [address] 5 10/21/2023 11:24:42 10/26/2023 11:53:03 Hospital inpatient stay within past 30 days 4911386782 106 Z76.89 Closed intertrochanteric fracture of left femur 6520018218 9022701 S72.142S Narcotic drug user 34303 002 F11.90 [id number] Ruy Vanegas DO [facility]) [address] [place] [address] 5 10/26/2023 08:07:25 11/01/2023 19:14:44 Closed intertrochanteric fracture of left femur 5836567429 3667962 S72.142S Narcotic drug user 66376 002 F11.90 [id number] Ruy Vanegas DO [facility] ([facility]) [address] [place] [address] 5 11/16/2023 08:26:46 11/23/2023 10:37:22 Closed intertrochanteric fracture of left femur 1072251880 5270057 S72.142S Narcotic drug user 04510 002 F11.90 Essential hypertension 05329262 I10 [id number] Ruy Vanegas DO [facility] ([facility]) [address] [place] [address] 5 11/18/2023 11:40:41 11/23/2023 12:58:11 Closed intertrochanteric fracture of left femur 9315281235 7293135 S72.142S Essential hypertension 84281326 I10 [id number] Ruy Vanegas DO [facility] ([facility]) [address] [place] [address] 11/30/2024 08:44:38 12/05/2024 16:54:29 Essential hypertension 33083369 I10 Post-disch arge follow-up 850079521 Z09 Closed fra cture of femur, distal end 905692663 S72.471D Narcotic drug user 68759 002 F11.90 [id number] Ruy Vanegas DO [facility] ([facility]) [address] [place] [address] 12/04/2024 14:09:44 12/06/2024 13:15:54 Chronic pain 57030812 G89.29 Acute constipation 01191 9006 K59.00 Acute urin michael tract infection 220625971 N39.0 [id number] Ruy Vanegas DO [facility] ([facility]) [address] [place] [address] 12/11/2024 14:26:00 12/13/2024 12:48:02 Closed intertrochanteric fracture of left femur 4719870536 1391629 S72.142S Essential hypertension 51432174 I10 Narcotic drug user 02775 002 F11.90 Health Concerns Section Related Observation LastModified by Organization Detai ls LastModified Time None Recorded Concern Status LastModified by Organization Details LastModified Time None Recorded Advance Directives Directive None Recorded Payers Insurance Date Sequence Insurance Name Policy Number Policy Padilla Covered Member ID Padilla Member ID Guarantor Name 10/26/2023 1 *SELF PAY* Lo ri [place] 12/13/2024 1 [place] - [place]PO) [id number] Niki [place] [id number] Niki [place] Notes Date Note Type Note Provider Name and Address Organization Details Recorded Time 11/16/2023 text/html Chronic Pain Follow-upReported bypatient.Quality:s harp; stabbing Alleviating factors:opioids Aggravating Factors:movement; stress Analgesia:taking pain medication Aberrant Behaviorworse mood Ruy Vanegas DO [address] [place] [address], [phone], [facility], LKassandraLKassandraC. 11/22/2023 11:30:09 11/18/2023 text/html Chronic Pain Follow-upReported bypatient.Quality:s harp; stabbing Alleviating factors:opioids Aggravating Factors:movement; stress Analgesia:taking pain medication Aberrant Behaviorworse mood Ruy Vanegas DO [address] [place] [address], [address], [facility], LKassandraLKassandraC. 11/21/2023 13:09:57 11/30/2024 text/html Chronic Pain Follow-upReported bypatient.Quality:s harp; stabbing Alleviating factors:opioids Aggravating Factors:movement; stress Analgesia:taking pain medication Aberrant Behaviorworse mood new admit to SNF after fall at home resulted in fracture. Ruy Vanegas DO [address] [place] [address], [phone], [facility], L.LKassandraC. 12/05/2024 15:28:04 12/04/2024 text/html Chronic Pain Follow-upReported bypatient.Quality:s harp; stabbing Alleviating factors:opioids Aggravating Factors:movement; stress Analgesia:taking pain medication Aberrant Behaviorworse mood ER follow up Ruy Vanegas DO [address] [place] [address], [phone], [facility], LKassandraLKassandraC. 12/05/2024 15:48:18 12/11/2024 text/html Chronic Pain Follow-upReported bypatient.Quality:s harp; stabbing Alleviating factors:opioids Aggravating Factors:movement; stress Analgesia:taking pain medication Aberrant Behaviorworse mood visit for discharge orders. Ruy Vanegas DO [address] [place] [address], [phone], [facility], FuadLKassandraC. 12/11/2024 16:37:58 OBGyn Episode No OBEpisode recorded.
--- OUTSIDE RECORDS SUMMARY | 2024-12-26 20:32 | XMS_ITS ---
Laboratory report Created on: December 26, 2024 LIZZIE LADD : 1960 Sex: Female Author Name SHMUEL PIERCE Unknown PROBLEMS Problems List Code Description I10 E03.9 R73.09 Z13.220 E55.9 RESULTS Laboratory Orders Date Order Code Test 2024-12-18 [id number] HEMOGLOBIN A1C 2024-12-18 494181 VITAMIN D, 25-HY DROXY 2024-12-18 661264 CMP14+CBC/D/PLT+ TSH 2024-12-18 210755 LIPID PANEL W/ C HOL/HDL RATIO Laboratory Results Date LOINC Test Value Unit Reference Range Interpre tation 2024-12-18 4548-4 HEMOGLOBIN A1C 5.4 % 4.8-5.6 2024-12-18 00612-8 VITAMIN D, 25-HYDROXY 41.1 NG/ML 30.0-100.0 2024-12-18 2345-7 GLUCOSE 97 MG/DL 70-99 2024-12-18 3094-0 BUN 15 MG/DL 8-27 2024-12-18 2160-0 CREATININE .74 MG/DL 0.57-1.00 2024-12-18 30301-9 EGFR 89 ML/MIN/1.73 >59 2024-12-18 3097-3 BUN/CREATININE RATIO 20 -2024-12-18 2951-2 SODIUM 139 MMOL/L 003-426 3002-07-07 2823-3 POTASSIUM 5.2 MMOL/L 3.5-5.2 2024-12-18 2075-0 CHLORIDE 101 MMOL/L 96-106 2024-12-18 2028-9 CARBON DIOXIDE, TOTAL 27 MMOL/L -2024-12-18 81447-2 CALCIUM 9.5 MG/DL 8.7-10.3 2024-12-18 2885-2 PROTEIN, TOTAL 6.9 G/DL 6.0-8.5 2024-12-18 1751-7 ALBUMIN 4 G/DL 3.9-4.9 2024-12-18 35177-8 GLOBULIN, TOTAL 2.9 G/DL 1.5-4.5 2024-12-18 1975-2 BILIRUBIN, TOTAL .3 MG/DL 0.0-1.2 2024-12-18 6768-6 ALKALINE PHOSPHATASE 227 IU/L 44-121 H 2024-12-18 1920-8 AST (SGOT) 16 IU/L 0-40 2024-12-18 1742-6 ALT (SGPT) 12 IU/L 0-32 2024-12-18 78259-3 TSH .808 UIU/ML 0.450-4.500 2024-12-18 6690-2 WBC 5.8 X10E3/UL 3.4-10.8 2024-12-18 789-8 RBC 3.47 X10E6/UL 3.77-5.28 L 2024-12-18 718-7 HEMOGLOBIN 9.9 G/DL 11.1-15.9 L 2024-12-18 4544-3 HEMATOCRIT 32.5 % 34.0-46.6 L 2024-12-18 787-2 MCV 94 FL 79-97 2024-12-18 785-6 MCH 28.5 PG 26.6-33.0 2024-12-18 786-4 MCHC 30.5 G/DL 31.5-35.7 L 2024-12-18 788-0 RDW 13 % 11.7-15.4 2024-12-18 777-3 PLATELETS 352 X10E3/UL 600-275 1243-07-07 770-8 NEUTROPHILS 63 % 2024-12-18 736-9 LYMPHS 22 % 2024-12-18 5905-5 MONOCYTES 8 % 2024-12-18 713-8 EOS 6 % 2024-12-18 706-2 BASOS 1 % 2024-12-18 751-8 NEUTROPHILS (ABSOLUTE) 3.6 X10E3/UL 1.4-7.0 2024-12-18 731-0 LYMPHS (ABSOLUTE) 1.3 X10E3/UL 0.7-3.1 2024-12-18 742-7 MONOCYTES(ABSOLUTE) .5 X10E3/UL 0.1-0.9 2024-12-18 711-2 EOS (ABSOLUTE) .4 X10E3/UL 0.0-0.4 2024-12-18 704-7 BASO (ABSOLUTE) .1 X10E3/UL 0.0-0.2 2024-12-18 15398-2 IMMATURE GRANULOCYTES 0 % 2024-12-18 64675-9 IMMATURE GRANS (ABS) 0 X10E3/UL 0.0-0.1 2024-12-18 2093-3 CHOLESTEROL, TOTAL 161 MG/DL 613-234 7848-07-07 2571-8 TRIGLYCERIDES 189 MG/DL 0-149 H 2024-12-18 2085-9 HDL CHOLESTEROL 58 MG/DL >39 2024-12-18 81420-0 VLDL CHOLESTEROL JOSE 31 MG/DL 5-40 2024-12-18 72005-6 LDL CHOL CALC ([facility]) 72 MG/DL 0-99 2024-12-18 9830-1 T CHOL/HDL RATIO 2.8 RATIO 0.0-4.4
--- OUTSIDE RECORDS SUMMARY | 2024-12-26 20:32 | XMS_ITS | Patient Health Record ---
Author Organization [facility] Address [address] [place] [address] Support Name Relationship Address , Emma Rudolph Emergency Contact Unknown Unavailable Niki Agosto Guarantor Unknown [phone] Care Team Providers Care Functional Skills Tutor Name Role Phone Charity Salazar MD Primary Care Provider Unavailab Charles Busby Unavailable [phone] Migration, Provider Unavailable Unavailable Brook Quiñonez Unavailable Mateusz Alexa Unavailable [phone] Allergies Allergen (clinical drug ingredient) Drug/Non Drug [...] Drug Screen (confir mation by instrument) - 14483 Reviewed date:07/25/2024 01:30:25 PM Interpretation: Performing Lab: Notes/Report: Reason For Referral Reason Eval and Treat Gait Training and Overall Deconditioning Diagnosis 1 Unspecified abnormal ities of gait and mobility (R26.9) Referral Organization [facility] Referring Provider First Name Charles Referring Provider Last Name Ricky Referring Provider Speciality Interventi onal Pain Medicine Referred Provider [facility] Referred Provider Specialty Physical The rapist Referral Priority Routine Medications Medication SIG (Take, Route, Frequency, Duration) Notes Start Date End Date Status Lisinopril *Pick strength-f orm from [facility] for eRX* Active Acetaminophen 325 MG / Hydrocodone Bitartrate 7.5 MG Oral Tablet [[place] 7.5/325] Acetaminophen 325 MG / Hydrocodone Bitartrate 7.5 MG Oral Tablet [[place] 7.5/325] 03/14/2014 Not-Taking Fluoxetine 40 MG Oral Capsule Fluoxetine 40 MG Oral Capsule 04/23/2014 Active Verapamil hydrochloride 120 MG Oral Tablet Verapamil hydrochloride 120 MG Oral Tablet 05/14/2014 Active topiramate 100 MG Oral Tablet topiramate 100 MG Oral Tablet 05/14/2014 Active CeleBREX *[facility]m [facility] for [facility]RX* Active Temazepam *Pick strength-f orm from [facility] for eRX* Active Baclofen *Pick strength-f orm from [facility] for eRX* Active Sumatriptan 100 MG Oral Tablet Sumatriptan 100 MG Oral Tablet 05/14/2014 Active SUMAtriptan *Pick strength-f orm from [facility] for eRX* Active ropinirole *Reorder from [facility] for eRx and Interaction Alerts* Active Amitriptyline *Reorder from [facility] for eRx and Interaction Alerts* Active Omeprazole *Pick strength-f orm from [facility] for eRX* Active Lorazepam 1 MG Oral Tablet Lorazepam 1 MG Oral Tablet 03/14/2014 Active Social History Social History Additional Details Category Social Info Options Details Migrated Social History Migrated Social History Alcoholic beverages? - Yes, Currently on disability? - Yes, Drug or substance abuse? - No, If yes, frequency of alcoholic beverages - 2-3 drinks per week, Marital Status - , Nonprescription drug use? - No, Participation in detoxification or rehabilitation - No, Smoking - No, Working currently? - No Problems Problem Type SNOMED Code ICD Code Onset Dates Problem Status W/U Status Risk Notes Problem Chronic pain syndrome (841655989) Chronic pain syndrome (G89.4) 12/01/19 24 Active confirmed Problem Abnormal gait (38894876) Unspecified abnormalities of gait and mobility (R26.9) Active confirmed Problem Degeneration of thoracic intervertebral disc (26601257) DDD (degenerative disc disease), thoracic (M51.34) Active confirmed Problem History of total hip arthroplasty (situation) (539303429533) History of hip replacement, unspecified laterality (Z96.649) Active confirmed Vital Signs Height-cm 172.72 cm 10/18/2024 Weight-kg 99.79 kg 10/18/2024 Height 68.00 in 10/18/2024 Weight 220 lbs 10/18/2024 BMI 33.45 kg/m2 10/18/2024 Encounters Encounter Location Date Provider Diagnosis Migrated_Facility 0 0 04/08/2024 Provider Migration [facility]rated[facility]Facility 0 0 04/09/2024 Provider Migration [facility] [place] [address] [facility] [place] [address] 04/26/2024 Charles García [facility] [place] [address] [facility] [place] [address] 04/26/2024 Charles García [facility] [place] [address] [facility] [place] [address] 04/28/2024 Charles García [facility] [address] [facility] [place] [address] 04/28/2024 Brook valdez Chronic pain syndrome G89.4 [facility] [address] [facility] [place] [address] 05/25/2024 Charles García Chronic pain syndrom e G89.4 [facility] [address] [facility] [address] 06/21/2024 Charles García Chronic pain syndrom e G89.4 [facility] [place] [address] [facility] [place] [address] 07/20/2024 Charles García Chronic pain syndrom e G89.4 [facility] [place] [address] [facility] [place] [address] 08/22/2024 Charles García [facility] [place] [address] [facility] [place] [address] 10/05/2024 Charles García [facility] [place] [address] [facility] [place] [address] 02/02/2024 Charles García [facility] [place] [address] [facility] [place] [address] 02/23/2024 Charles García [facility] [address] [address] 03/29/2024 Charles García [facility] [address] [address] 05/25/2024 Alexa Child Chronic pain syndrom e G89.4 ; DDD (degenerative disc disease), thoracic M51.34 ; Degeneration of intervertebral disc of lumbar region with discogenic back pain M51.360 ; Failed back syndrome, lumbar M96.1 ; Unspecified abnormalities of gait and mobility R26.9 and custodial (current) use of opiate analgesic Z79.891 [facility] [address] [address] 07/20/2024 Alexa Child Chronic pain syndrom e G89.4 ; DDD (degenerative disc disease), thoracic M51.34 ; Degeneration of intervertebral disc of lumbar region with discogenic back pain M51.360 ; Failed back syndrome, lumbar M96.1 ; Unspecified abnormalities of gait and mobility R26.9 and custodial (current) use of opiate analgesic Z79.891 [facility] [address] [address] 09/13/2024 Charles García Chronic pain syndrom e G89.4 ; DDD (degenerative disc disease), thoracic M51.34 ; Degeneration of intervertebral disc of lumbar region with discogenic back pain M51.360 ; Failed back syndrome, lumbar M96.1 ; Unspecified abnormalities of gait and mobility R26.9 and technician terminal and repeater (current) use of opiate analgesic Z79.891 [facility] [address] [address] 10/18/2024 Charles García Chronic pain syndrom e G89.4 ; DDD (degenerative disc disease), thoracic M51.34 ; Degeneration of intervertebral disc of lumbar region with discogenic back pain M51.360 ; Failed back syndrome, lumbar M96.1 ; Unspecified abnormalities of gait and mobility R26.9 and technician terminal and repeater (current) use of opiate analgesic Z79.891 [facility] [address] [place] [address] 01/19/2024 Charles García Assessments Encounter Date Diagnosis [...] ago. We will check for records at [facility] to see if we can [...] effects are noted. Last UDS and [place] [employer]GIST reviewed today. Patient is advised that best [...] next couple of months and proceed accordingly. 10/18/2024 DDD (degenerative disc disease), thoracic (ICD-10 - M51.34) 09/13/2024 DDD (degenerative disc disease), thoracic (ICD-10 - M51.34) 05/25/2024 Degeneration of intervertebral disc of lumbar region with discogenic back pain (ICD-10 - M51.360) 07/20/2024 DDD (degenerative disc disease), thoracic (ICD-10 - M51.34) 04/28/2024 Chronic pain syndrome (ICD-10 - G89.4) 07/20/2024 Degeneration of intervertebral disc of lumbar region with discogenic back pain (ICD-10 - M51.360) 05/25/2024 Failed back syndrome, lumbar (ICD-10 - M96.1) 09/13/2024 Degeneration of intervertebral disc of lumbar region with discogenic back pain (ICD-10 - M51.360) 10/18/2024 Degeneration of intervertebral disc of lumbar region with discogenic back pain (ICD-10 - M51.360) 10/18/2024 Failed back syndrome, lumbar (ICD-10 - M96.1) 09/13/2024 Failed back syndrome, lumbar (ICD-10 - M96.1) 07/20/2024 Failed back syndrome, lumbar (ICD-10 - M96.1) 05/25/2024 Unspecified abnormalities of gait and mobility (ICD-10 - R26.9) 05/25/2024 custodial (current) use of opiate analgesic (ICD-10 - Z79.891) 07/20/2024 Unspecified abnormalities of gait and mobility (ICD-10 - R26.9) 09/13/2024 Unspecified abnormalities of gait and mobility (ICD-10 - R26.9) 10/18/2024 Unspecified abnormalities of gait and mobility (ICD-10 - R26.9) 10/18/2024 custodial (current) use of opiate analgesic (ICD-10 - Z79.891) 09/13/2024 custodial (current) use of opiate analgesic (ICD-10 - Z79.891) 07/20/2024 custodial (current) use of opiate analgesic (ICD-10 - Z79.891) 09/13/2024 Other Maryjo, Kaleb Jasmine am scribing for Dr. Charles García. I, Dr. Charles García, personally performed the services described in this documentation, as scribed by Kaleb Jasmine, and it is both accurate and complete. 10/18/2024 Other Maryjo, GEGE Shankar am scribing for Dr. Charles García. I, Dr. Charles García, personally performed the services described in this documentation, as scribed by GEGE Shankar , and it is both accurate and complete. Plan Of Treatment Next Appt Details Provider Name:Charles García, 12/27/2024 03:00:00 PM, [address] [place], [address], Insurance Providers Payer Name Payer Address Payer Phone Subscriber Number Group Number Insured Name Patient Relationship to Insured Coverage Start Date Coverage End Date [facility] [address] [place] [address] [phone] [id number] 1 Niki Agosto Self - patient is the insured [facility] Medicare Replacement [address] [place] [address] [phone] [id number] 1 Niki Agosto Self - patient is the insured NOT IN [facility] Medicare Advantage HMO [address] [address] [place] [address] [id number] Niki Agosto Self - patient is the [...] us :: Active Surgical History Surgery Date(Month/Year) Spinal fusion Since 2020 2021 Hip surgery Since 2023
--- OUTSIDE RECORDS SUMMARY | 2024-12-26 20:32 | XMS_ITS | Clinical Summary ---
Author Organization [facility] Address [address] [place] [address] Phone Care Team Providers Care Flight Control Manager Name Role Phone Unavailable Primary Care [...] distal end of right femur, initial encounter ([facility]) Take 1 Tablet (10 mg) by mouth [...] Data STL ABSTRACTION Provider, Abstract 12/11/2024 Telephone [place] [address] [facility] [address] [place] [address] Te Brooks PA Medication Question (Needs an update on her injury currently in a rehabilitation center) 12/06/2024 1:45 PM CDT Ancillary Procedure [address] [place] [address] Te Brooks PA Closed torus fracture of distal end of right femur, initial encounter ([facility]) 12/06/2024 1:40 PM CDT Office Visit [address] [place] [address] Te Brooks PA S/P ORIF hector-prosthetic supracondylar fracture of Lt femur, 11/23/2024 (Primary Dx) 12/05/2024 Orders Only [address] [place] [address] Te Brooks PA Closed torus fracture of distal end of right femur, initial encounter ([facility]) (Primary Dx) 11/29/2024 External Device Data STL ABSTRACTION Provider, Abstract 11/28/2024 External Device Data STL ABSTRACTION Provider, Abstract 11/28/2024 External Device Data STL ABSTRACTION Provider, Abstract 11/27/2024 - 11/27/2024 11:59 PM CDT Hospital Encounter [facility] Emergency Medical Services [facility] [address] [place] [address] Ashley Neal DO Ambulance, [facility] Discharge Disposition: Intermediate Care Facility 11/23/2024 2:45 PM CDT - 11/23/2024 5:25 PM CDT Surgery [facility] [address] [place] [id number] Maldonado Benson MD FEMUR DISTAL OPEN REDUCTION INTERNAL FIXATION 11/23/2024 9:53 AM CDT Anesthesia Event [facility] [address] [place] [address] Tanisha Porter MD Koval, Nick S, AGRICULTURE MANAGER 11/22/2024 Travel 11/21/2024 7:59 PM CDT - 11/27/2024 4:04 PM CDT Hospital Encounter [facility] 3[address] Ortho Neuro [address] [place] [id number] Hany Neal MD Bell, Ashley Nicole, Hector-prosthetic supracondylar fracture of femur, subsequent encounter Discharge Disposition: Long-Term Fac(SNF) with Medicare Certification in Anticipation of Skilled Care 11/21/2024 Prep for Surgery [facility] [place] [address] [facility] [address] [place] [address] Ajay Ty MD from Last [...] on file 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 Gender Identity Not on file Sexual Orientation [...] Description 01/09/2025 2:40 PM CDT Office Visit [facility] [place] [address] [place] [address] Te Brooks PA [address] [place] [address] Health Maintenance Due Date Last Done Comments BREAST CANCER SCREENING 1998 COLORECTAL SCREENING 2003 Colorectal Cancer Screening 2003 FIT-DNA Q 3 years 2003 FIT/FOBT Q 1 year 2003 Flex Sig/CT Colonography Q 5 years 2003 PNEUMOCOCCAL VACCINE 50+ YEA RS (1 of 1 - PCV) 2008 ZOSTER VACCINE (1 of 2) 2008 OSTEOPOROSIS SCREENING 2023 COVID-19 Vaccine ( - season) 2024 07/04/2021, 01/10/2021, 09/30/2020 [place] Prev entative Visit/Annual Wellness Visit 06/14/2024 INFLUENZA VACCINE (#1) 2025 04/16/2024, 2021 Pre-Diabetes and Diabetes Screening 11/24/202711/23 DTAP/TDAP/TD VACCINES (2 - T d or Tdap) 07/21/2029 07/21/2019 RSV VACCINE (60+ or ) (1 - 1-dose 75+ series) 2033 Medical Devices Implanted Type Area Nail Making Machine Setter Device Identifier Shelf Expiration Date Model / Serial / Lot Clip Ligating Horizon Med Ti [id number] - Csc - [id number] Implanted:Qty: 1 on 11/23/2024 by Maldonado Benson MD at [facility] Clip Left: Leg TELEFLEX- WECK CLOSURE SYS [id number] 06/28/2028 / / [id number] Clip Ligating Horizon Med Ti 046739 - Csc - [id number] Implanted:Qty: 1 on 11/23/2024 by Maldonado Benson MD at [facility] Clip Left: Leg TELEFLEX- WECK CLOSURE SYS [id number] 06/20/2029 137260 / / [id number] Clip Ligating Horizon Lrg Ti 10.07x12.38mm 404473 - Csc - [id number] Implanted:Qty: 1 on 11/23/2024 by Maldonado Benson MD at [facility] Clip Left: Leg TELEFLEX- WECK CLOSURE SYS [id number] 11/30/2027 / / [id number] Clip Ligating Horizon Lrg Ti 10.07x12.38mm 431606 - [facility] - [id number] Implanted:Qty: 1 on 11/23/2024 by Maldonado Benson MD at [facility] Clip Left: Leg TELEFLEX- WECK CLOSURE SYS [id number] 12/13/2028 / / [id number] Plate Condylar 4.5 Va-Lcp 124.411 - [id number] Implanted:Qty: 1 on 11/23/2024 by Maldonado Benson MD at [facility] Plate Left: Femur J&J- DEPUY SYNTHES 02124.41 1 / / Screw Cortex Slftp 3.5x44mm 204.844 - [id number] Implanted:Qty: 1 on 11/23/2024 by Maldonado Benson MD at [facility] Screw Left: Femur J&J- DEPUY SYNTHES 204.844 / / Screw St 4.5x38mm 214.838 - [id number] Implanted:Qty: 1 on 11/23/2024 by Maldonado Benson MD at [facility] Screw Left: Femur J&J- DEPUY SYNTHES 214.838 / / Screw St 4.5x46mm 214.846 - [id number] Implanted:Qty: 1 on 11/23/2024 by Maldonado Benson MD at [facility] Screw Left: Femur J&J- DEPUY SYNTHES 214.846 / / Screw Va Slftp 5.0x70mm Strdrv 02.231.270 - [id number] Implanted:Qty: 1 on 11/23/2024 by Maldonado Benson MD at [facility] Screw Left: Femur J&J- DEPUY SYNTHES 02.231.27 0 / / Screw Va Slftp 5.0x75mm Strdrv 02.231.275 - [id number] Implanted:Qty: 1 on 11/23/2024 by Maldonado Benson MD at [facility] Screw Left: Femur J&J- DEPUY SYNTHES 02.231.27 5 / / Screw Va Slftp 5.0x80mm Strdrv 02.231.280 - [id number] Implanted:Qty: 1 on 11/23/2024 by Maldonado Benson MD at [facility] Screw Left: Femur J&J- DEPUY SYNTHES 02.231.28 0 / / Screw Va Slftp 5.0x85mm Strdrv 02.231.285 - [id number] Implanted:Qty: 1 on 11/23/2024 by Maldonado Benson MD at [facility] Screw Left: Femur J&J- DEPUY SYNTHES 02.231.28 5 / / Screw Va Slftp 5.0x85mm Strdrv 02.231.285 - [id number] Implanted:Qty: 1 on 11/23/2024 by Maldonado Benson MD at [facility] Screw Left: Femur J&J- DEPUY SYNTHES 02.231.28 5 / / Screw Va Slftp 5.0x85mm Strdrv 02.231.285 - [id number] Implanted:Qty: 1 on 11/23/2024 by Maldonado Benson MD at [facility] Screw Left: Femur J&J- DEPUY SYNTHES 02.231.28 5 / / Screw St 4.5x36mm 214.836 - [id number] Implanted:Qty: 1 on 11/23/2024 by Maldonado Benson MD at [facility] Screw Left: Femur J&J- DEPUY SYNTHES 214.836 / / Screw St 4.5x38mm 214.838 - [id number] Implanted:Qty: 1 on 11/23/2024 by Maldonado Benson MD at [facility] Screw Left: Femur J&J- DEPUY SYNTHES 214.838 / / Washer 7.0mm 219.98 - [id number] Implanted:Qty: 1 on 11/23/2024 by Maldonado Benson MD at [facility] Washer Left: Femur J&J- DEPUY SYNTHES 219.98 / / Explanted Type Area Nail Making Machine Setter Device Identifier Shelf Expiration Date Model / Serial / Lot Screw St 4.5x70mm 214.870 - [id number] Explanted:Qty: 1 on 11/23/2024 by Maldonado Benson MD at [facility] Screw Left: Femur J&J- DEPUY SYNTHES 214.870 / / Procedures Procedure Name Priority Date/Time Associated Diagnosis Comments XR FEMUR 2 VW LEFT Routine 12/06/2024 3: 05 PM CDT Closed torus fracture of distal end of right femur, initial encounter ([facility]) POC GLUCOSE Routine 11/27/2024 11:31 AM CDT [...] POC GLUCOSE Routine 11/23/2024 5:35 PM CDT IL REMOVAL IMPLANT DEEP 11/23/2024 2:45 PM CDT Other closed fracture of distal end of left femur, initial encounter ([facility]) IL OPEN TX FEMORAL SUPRACONDYLAR FRACTURE W/O XTN 11/23/2024 2:45 PM CDT Other closed fracture of distal end of left femur, initial encounter ([facility]) XR KNEE 1 OR 2 VW LEFT [...] of18 resultswithin the time period is included. GLUCOSE POC 133(H) 74 - 99 mg/dL 11/27/2024 11:[address] [facility] SPECIMEN SOURCE, GLUCOSE POC Capillary 11/27/2024 11:[address] [facility] Blood, whole 11/27/2024 11:3 1 AM CDT 11/27/2024 11:41 AM CDT Ashley Neal DO POINT OF CARE TESTING Lorena l Result [facility] CLIA # [id number] [address] [place] [address] [place] [id number] * (ABNORMAL) CBC WITHOUT DIFFERENTIAL (11/27/2024 3:43 AM CDT) Only the most recent of3 resultswithin the time period is included. Pathologist [facility] WBC 6.0 4.8 - 10.8 K/uL 11/27/2024 4:[address] [facility] RBC 2.52(L) 4.20 - 5.40 M/uL 11/27/2024 4:[address] [facility] HEMOGLOBIN 7.7(L) 12.0 - 16.0 g/dL 11/27/2024 4:[address] [facility] HEMATOCRIT 25.6(L) 36.0 - 46.0 % 11/27/2024 4:[address] [facility] MCV 101.6 84.0 - 103.0 fL 11/27/2024 4:[address] [facility] MCH 30.6 27.0 - 34.0 pg 11/27/2024 4:[address] [facility] MCHC 30.1 30.0 - 35.0 g/dL 11/27/2024 4:[address] [facility] PLATELETS 260 140 - 440 K/uL 11/27/2024 4:[address] [facility] MPV 9.4 8.9 - 12.8 fL 11/27/2024 4:[address] [facility] RDW 13.8 11.0 - 14.5 % 11/27/2024 4:[address] [facility] RDW-STDEV 50.9 37.0 - 54.0 fL 11/27/2024 4:[address] [facility] Blood Venipuncture / Unknown 11/27/2024 3:43 AM CDT 11/27/2024 4:04 AM CDT us Ashley Neal DO HEMATOLOGY ORDERABLES Lorena gurrola Result [facility] CLIA # [id number] [address] [address] [place] [address] * (ABNORMAL) HEMOGLOBIN AND HEMATOCRIT (11/25/2024 1:02 PM CDT) [facility] HEMOGLOBIN 7.4(L) 12.0 - 16.0 g/dL 11/25/2024 1:[address] [facility] HEMATOCRIT 24.3(L) 36.0 - 46.0 % 11/25/2024 1:[address] [facility] Blood Venipuncture / Unknown 11/25/2024 1:02 PM CDT 11/25/2024 1:22 PM CDT us Ashley Neal DO HEMATOLOGY ORDERABLES Lorena l Result [facility] CLIA # [id number] [address] [address] [place] [address] * (ABNORMAL) CBC WITH DIFFERENTIAL (11/25/2024 5:07 AM CDT) Only the most recent of3 resultswithin the time period is included. [facility] WBC 7.2 4.8 - 10.8 K/uL 11/25/2024 5:[address] [facility] RBC 2.39(L) 4.20 - 5.40 M/uL 11/25/2024 5:[address] [facility] HEMOGLOBIN 7.3(L) 12.0 - 16.0 g/dL 11/25/2024 5:[address] [facility] HEMATOCRIT 23.9(L) 36.0 - 46.0 % 11/25/2024 5:[address] [facility] MCV 100.0 84.0 - 103.0 fL 11/25/2024 5:[address] [facility] MCH 30.5 27.0 - 34.0 pg 11/25/2024 5:[address] [facility] MCHC 30.5 30.0 - 35.0 g/dL 11/25/2024 5:[address] [facility] PLATELETS 192 140 - 440 K/uL 11/25/2024 5:31 AM [facility] [employer] [place] [facility] MPV 9.7 8.9 - 12.8 fL 11/25/2024 5:31 AM [facility] [employer] [place] [facility] RDW 13.8 11.0 - 14.5 % 11/25/2024 5:31 AM [facility] RDW-STDEV 50.9 37.0 - 54.0 fL 11/25/2024 5:31 AM [facility] NEUTROPHILS 76(H) 42 - 75 % 11/25/2024 5:31 AM [facility] LYMPHOCYTES 14(L) 24 - 44 % 11/25/2024 5:31 AM [facility] [employer] [place] [facility] MONOCYTES 8 2 - 10 % 11/25/2024 5:31 AM [facility] [employer] [place] [facility] EOSINOPHILS 1 0 - 7 % 11/25/2024 5:31 AM [facility] [employer] [place] [facility] BASOPHILS 1 0 - 1 % 11/25/2024 5:31 AM [facility] IMMATURE GRANULOCYTES 1 0 - 2 % 11/25/2024 5:31 AM [facility] NEUTROPHIL ABSOLUTE 5.45 2.00 - 8.00 K/uL 11/25/2024 5:31 AM [facility] LYMPHOCYTE ABSOLUTE 1.04(L) 1.20 - 4.00 K/uL 11/25/2024 5:31 AM [facility] MONOCYTE ABSOLUTE 0.56 0.10 - 0.60 K/uL 11/25/2024 5:31 AM [facility] EOSINOPHIL ABSOLUTE 0.06 0.00 - 0.70 K/uL 11/25/2024 5:31 AM [facility] BASOPHILS ABSOLUTE 0.04 0.00 - 0.20 K/uL 11/25/2024 5:31 AM [facility] IMMATURE GRANULOCYTES ABSOLUTE 0.06 0.00 - 0.10 K/uL 11/25/2024 5:31 AM [facility] SMEAR REVIEWED: NA - Not Applicable 11/25/2024 5:[address] [facility] Blood Venipuncture / Unknown 11/25/2024 5:07 AM CDT 11/25/2024 5:25 AM CDT Maldonado Benson MD HEMATOLOGY ORDERABLES F inal Result [facility] CLLA # [id number] [address] [place] [address] [place] [address] * (ABNORMAL) BASIC METABOLIC PANEL (11/25/2024 5:07 AM CDT) Only the most recent of4 resultswithin the time period is included. SODIUM 136 136 - 145 mmol/L 11/25/2024 6:25 AM [facility] POTASSIUM 3.7 3.5 - 5.1 mmol/L 11/25/2024 6:25 AM [facility] CHLORIDE 100 98 - 107 mmol/L 11/25/2024 6:25 AM [facility] CO2 28 22 - 29 mmol/L 11/25/2024 6:25 AM [facility] CALCIUM 8.6(L) 8.8 - 10.2 mg/dL 11/25/2024 6:25 AM [facility] BUN 9 8 - 23 mg/dL 11/25/2024 6:25 AM [facility] CREATININE 0.45(L) 0.51 - 0.95 mg/dL 11/25/2024 6:25 AM [facility] GLUCOSE 140(H) 74 - 99 mg/dL 11/25/2024 6:25 AM [facility] GFR >60 >=60 mL/min/1. 73 sq meter 11/25/2024 6:25 AM [facility] Comment:eGFR calculated with 2020 CKD-EPI equation. Vegetarian diet, extremely high or low muscle mass, and may affect results. Cystatin C with Glomerular Filtration Rate is a suitable alternative for these patients. ANION GAP 8(L) 9 - 20 mmol/L 11/25/2024 6:[address] [facility] Blood Venipuncture / Unknown 11/25/2024 5:07 AM CDT 11/25/2024 5:25 AM CDT Maldonado Benson MD CHEMISTRY ORDERABLES Fi nal Result Performing Organization Address [facility] Co de Phone Number [facility] CLIA # [id number] [address] [address] * (ABNORMAL) VITAMIN D 25 HYDROXY (11/24/2024 1:00 AM CDT) [facility] VITAMIN D TOTAL (25OH) 16(L) 30 - 100 ng/mL 11/24/2024 10:[address] [facility] Blood Venipuncture / Unknown 11/24/2024 1:00 AM CDT 11/24/2024 1:[address] [facility] - 11/24/2024 10:52 PM CDT Interpretive Data Chart: Deficient: 0 - 20 ng/mL Insufficient: 21 - 29 ng/mL Sufficient: 30 - 100 ng/mL Increased Risk of Hypercalciuria: >100 ng/ml Toxic: >150 ng/ml Lexy Mercedes NP CHEMISTRY ORDERABLES Lorena l Result Performing Organization Address [facility] Co de Phone Number [facility] CLIA # [id number] [address] [address] * XR KNEE 1 OR 2 VW [...] note. us Maldonado Benson MD DIAGNOSTIC IMAGING ORDE RABPRASANNA Final Result * XR FLUORO LESS THAN 1 HOUR (11/23/2024 12:15 PM CDT) Narrative 11/23/2024 12:16 PM CDT Order information only. Exam was auto-finalized. us Maldonado Benson MD DIAGNOSTIC IMAGING ORDE RABLES Final Result * PREPARE RED BLOOD CELLS (11/23/2024 11:28 AM CDT) Only the most recent of2 resultswithin the time period is included. COMPONENT TYPE [id number] [facility] [place] COMPONENT IDENTIFICATION [id number] [facility] [place] UNIT ABO O [facility] [place] UN[facility] RH POS [facility] [place] CROSSMATCH Compatible [facility] [place] COMPONENT STATUS Returned [facility] [place] COMPONENT EXPIRATION DATE/TIME [id number] [facility] [place] COMPONENT CODING SYSTEM 5100 [facility] [place] VOLUME, BLOOD PRODUCT 350 [facility] [place] 11/23/2024 11:2 8 AM CDT us Maldonado Benson MD LAB TRANSFUSION ORDERAB LES Edited Result - Final Performing Organization Address [facility]/ZIP Co de Phone Number [facility] [place] [facility] CLIA#[id number] Critical access hospital[address] [place], [place] [id number] [place] [address] * (ABNORMAL) HEMOGLOBIN A1C (11/23/2024 6:54 AM CDT) HEMOGLOBIN A1C 5.9(H) <=5.6 % 11/23/2024 11:[address] [facility] EST. AVG GLUCOSE, A1C 123 mg/dL 11/23/2024 11:[address] [facility] Blood Venipuncture / Unknown 11/23/2024 6:54 AM CDT 11/23/2024 7:[address] [facility] - 11/23/2024 11:59 AM CDT HGB A1C INTERPRETATION NORMAL: <5.7% PRE-DIABETES: 5.7 - 6.4% DIABETES: 6.5% OR GREATER Ashley Neal DO CHEMISTRY ORDERABLES Final Result Performing Organization Address [facility] Co de Phone Number [facility] CLIA # [id number] [address] [facility] [place] [address] * XR SHOULDER 2+ VW LEFT (11/22/2024 [...] the shoulder without visible acute osseous injury. Lexy Mercedes NP DIAGNOSTIC IMAGING ORDERA BLES [...] CDT) ABO GROUP O 11/22/2024 4:00 AM CDT [facility] [place] RH (D) TYPE Positive 11/22/2024 4:00 AM CDT [facility] [place] Blood Venipuncture / Unknown 11/22/2024 3:20 AM CDT 11/22/2024 3:23 AM CDT Hany Neal MD BLOOD BANK ORDERABLES Lorena l Result Performing Organization Address City/[facility]/ZIP Co de Phone Number [facility] [employer] [place] [facility] [place] CLIA#[id number] [address] [place] [address], * TYPE AND SCREEN (11/22/2024 12:02 AM CDT) ABO GROUP O 11/22/2024 2:35 AM CDT [facility] [place] RH (D) TYPE Positive 11/22/2024 2:35 AM CDT [facility] [place] ANTIBODY SCREEN Negative 11/22/2024 2:35 AM CDT [facility] [place] Blood Venipuncture / Unknown 11/22/2024 12:02 AM CDT 11/22/2024 12:30 AM CDT Hany Neal MD BLOOD BANK ORDERABLES Edit ed Result - Final [facility] [place] CLIA#[id number] [address] [place] [address], * XR CHEST PA OR AP 1 [...] INTERFACE SYSTEM - 11/23/2024 6:[address] PM [address]T [address] [address] Test Date: 2024-11-21 Pat Name: LIZZIE AGOSTO Department: 12 Room: 3210 02 Gender: F Method Consultant: [id number] : 1960 Requested By: Order Number: [id number] Reading MD: Merlin Madison Measurements Intervals [place] Rate: 105 P: 42 IL: 164 QRS: 4 QRSD: 98 T: 21 QT: 344 QTc: 454 Interpretive Statements Sinus tachycardia Septal infarct, age undetermined Abnormal ECG Electronically Signed On 11-23-2024 18:44:30 CDT by Merlin Madison Procedure Note Merlin Madison MD - 11/23/2024 [facility] [address] [place] [address] Test Date: 2024-11-21 Pat Name: LIZZIE AGOSTO Department: 12 Room: [address] [place] [address] Gender: F Method Consultant: [id number] : 1960 Requested By: Order Number: [id number] Reading MD: Merlin Madison Measurements Intervals [place] Rate: 105 P: 42 IL: 164 QRS: 4 QRSD: 98 T: 21 QT: 344 QTc: 454 Interpretive Statements Sinus tachycardia Septal infarct, age undetermined Abnormal ECG Electronically Signed On 11-23-2024 18:44:30 CDT by Merlin Madison us Hany Neal MD ECG ORDERABLES Final Resu lt Performing Organization Address City/[facility] Co de Phone Number INTERFACE SYSTEM Refer to clinic/hospital department from Last 3 Months Insurance [facility] DUAL ADVANTAGE [facility] MEDICAID [place] Advance Directives For more information, please contact: [phone] * Default Full Code - Needs Discussion (Latest Code Status on File) Date Activated Date Inactivated Comments 11/23/2024 6:20 PM 11/27/2024 6:09 PM * Default Full Code - Needs Discussion Date Activated Date Inactivated Comments 11/21/2024 9:55 PM 11/23/2024 2:52 PM
[2024-12-26 20:33] VITALS: BP 137/89; PULSE 85; RESP 20; TEMP 36.6; O2SAT 99; BMI 39.1
[2024-12-26] MEDS: HYDROmorphone 0.5 MG/0.5 ML INJ 2 MG IM (21:26)
[2024-12-26 21:33] VITALS: BP 145/101; PULSE 88; RESP 22; O2SAT 94
[2024-12-26 22:26] VITALS: BP 131/95; PULSE 94; RESP 21; O2SAT 96
--- NOTE | 2024-12-27 01:20 | W.ED.EXTPRO ---
HPI - Extremity Problem General: Chief complaint: Extremity Problem,Nontraumatic Stated complaint: LEG PAIN Time Seen by Provider: 12/26/24 20:40 History of Present Illness: 64-yo F with distal femoral fracture sustained after a fall on 11/21/24 presents for worsening, constant right thigh pain refractory to home oxycodone. Pain rated ?unbelievable,? disrupts sleep, and persists despite adequate supply of opioids; patient reports associated severe headache. Uses a walker for ambulation. States prior ED visits x6 in last two months for the same issue; no new trauma tonight. Reports edema in the injured leg; states prior ultrasound ?looked for blood clots.? Denies recent fever, chest pain, or shortness of breath. Admits daily alcohol (?1?2 drinks) and chronic opioid use; acknowledges taking pain pills ?all the time? and difficulty stopping. Desires acute pain relief tonight but interested in eventual taper when ready. Related Data Home Medications ?Medication ?Instructions ?Recorded ?Confirmed levothyroxine 50 mcg capsule 50 mcg PO QAM 07/04/19 08/30/24 duloxetine 30 mg capsule,delayed 60 mg PO DAILY 09/10/20 08/30/24 release (Cymbalta) omeprazole 40 mg capsule,delayed 40 mg PO DAILY 07/26/23 08/30/24 release ropinirole 0.5 mg tablet 0.5 mg PO BEDTIME 07/26/23 08/30/24 sumatriptan succinate 100 mg tablet See Rx Instructions .Route 08/23/23 08/30/24 .COMPLEX PRN Migraine Headache albuterol sulfate 90 mcg/actuation 2 puff inhalation Q4H PRN Wheezing 04/15/24 08/30/24 aerosol inhaler alendronate 70 mg tablet See Rx Instructions .Route .COMPLEX 04/15/24 08/30/24 lisinopril 10 mg tablet 10 mg PO DAILY 04/15/24 08/30/24 oxycodone-acetaminophen 10 mg-325 1 tab PO Q6H PRN Pain 04/15/24 08/30/24 mg tablet celecoxib 200 mg capsule 200 mg PO BID 06/02/24 08/30/24 aspirin 325 mg tablet (Yevgeniy 650 mg PO Q6H PRN Fever Or Pain 08/09/24 08/30/24 Aspirin) multivitamin with minerals-folic 1 tab PO DAILY 08/09/24 08/30/24 acid 0.4 mg tablet naloxone 4 mg/actuation nasal spray See Rx Instructions .Route .COMPLEX 08/09/24 08/30/24 ropinirole 0.25 mg tablet 0.25 mg PO DAILY 08/09/24 08/30/24 sumatriptan succinate 50 mg tablet See Rx Instructions .Route .COMPLEX 08/09/24 08/30/24 Previous Rx's ?Medication ?Instructions ?Recorded baclofen 20 mg tablet 20 mg PO QID PRN spasms 30 days 05/30/20 #120 tabs ketorolac 10 mg tablet 10 mg PO Q8H #30 tabs 08/17/24 Allergies Allergy/AdvReac Type Severity Reaction Status Date / Time gabapentin Allergy Severe ADR-Halluci Verified 08/30/24 14:55 nating Penicillins Allergy RASH Verified 08/30/24 14:55 Sulfa (Sulfonamide Allergy ANAPHYLAXIS Verified 08/30/24 14:55 Antibiotics) [facility] ED PFSH: Medical History (Updated 12/26/24 @ 21:50 by Reg Hernadez MD) Vertebral compression fracture Chronic pain syndrome Lumbar radiculopathy Bilateral edema of lower extremity At risk for polypharmacy Altered mental status Chronic hypertension Diagnosed at the age of 14 and controlled on medication managed by primary care provider. Anxiety and depression Currently on Cymbalta managed by her primary care provider. Hypothyroid Currently on levothyroxine managed by PMD Chronic low back pain without sciatica Currently on hydrocodone and baclofen managed by the pain clinic Surgical History S/P spinal fusion History of back surgery 10/2020---jef placed in back S/P breast biopsy 2000-left breast-benign History of dental surgery tooth extraction Hx of section 03/26/89 History of ankle surgery 2006--LEFT x3. In [place] Family History Mother Family history of thyroid problem Thyroid disease Diabetes Hypertension Father Brain aneurysm Denies family history of Colon cancer Ovarian cancer DVT (deep venous thrombosis) Heart disease Breast cancer Suicide Pulmonary embolism Uterine cancer Social History Smoking and tobacco/nicotine status: never used tobacco/nicotine Alcohol intake: current Alcohol intake frequency: 0-2 Drinks per Day Substance/Drug Use: never Physical Exam Const: COMMON NORMALS: no acute distress, patient oriented x3 and alert HENMT: COMMON NORMALS: normocephalic and atraumatic HEAD & SCALP: normocephalic and atraumatic Eye: COMMON NORMALS: Equal, round and reactive pupils present, EOMs intact bilaterally and no scleral icterus PUPIL: Yes Equal, round and reactive pupils present Resp: COMMON NORMALS: normal respiratory effort and No retractions Cardio: COMMON NORMALS: regular rate, regular rhythm and No murmurs present (Cardio) RATE: regular rate RHYTHM: regular rhythm GI: COMMON NORMALS: Normal to inspection, nondistended, normoactive bowel sounds present, Soft to palpation and non-tender PALPATION: Yes Soft to palpation Extremity: NARRATIVE EXTREMITY EXAM: Mild bilateral peripheral edema of the feet and legs to the knees. No acute traumatic injury of the left lower leg or upper leg. Neuro: COMMON NORMALS: patient oriented x3 SENSORIUM/ORIENTATION: Yes alert Skin: COMMON NORMALS: no rashes or lesions noted GENERAL SKIN EXAM: no rashes or lesions noted Course Vital Signs: Vital signs: Vital Signs Temperature 97.8 F 12/26/24 20:33 Pulse Rate 94 12/26/24 22:26 Respiratory Rate 21 H 12/26/24 22:26 Blood Pressure 131/95 12/26/24 22:26 Pulse Oximetry 96 12/26/24 22:26 Oxygen Delivery Me thod Room Air 12/26/24 20:33 MDM - Extremity (Nontraumatic) Medical Decision Making In summary, patient is a 64-year-old female who is well-known to the emergency department seen frequently for pain related issues. She admits that she has used opioid medication for many years and that she is frustrated that she does not receive the relief that she desires. We had a very candid conversation about opioid-induced hyperalgesia and she seems to show good understanding and would like to attempt an alternative route. We discussed tapering her opioids and speaking with her pain management physician about strategies to wean her off of opioids. I do not suspect any emergent process warranting further workup or imaging tonight. She will be discharged home in stable and improved condition with plan to taper opioids when she is ready No radiology studies performed this visit Discharge Plan Discharge Patient Disposition: Home Clinical Impression: Opioid-induced hyperalgesia Condition: Stable Prescriptions: No Action baclofen 20 mg tablet 20 mg PO QID PRN (Reason: spasms) 30 Days Qty: 120 1RF levothyroxine 50 mcg capsule 50 mcg PO QAM duloxetine [Cymbalta] 30 mg capsule,delayed release(DR/EC) 60 mg PO DAILY omeprazole 40 mg capsule,delayed release(DR/EC) 40 mg PO DAILY ropinirole 0.5 mg tablet 0.5 mg PO BEDTIME ketorolac 10 mg tablet 10 mg PO Q8H Qty: 30 0RF Rx Instructions: maximum total duration of 5 days from all oral, intranasal, or parenteral formulations sumatriptan succinate 100 mg tablet See Rx Instructions .ROUTE .COMPLEX PRN (Reason: Migraine Headache) Rx Instructions: TAKE 1 TABLET BY MOUTH at ONSET of headache, MAY REPEAT ONCE in 24 hours aspirin [Yevgeniy Aspirin] 325 mg Tablet 650 mg PO Q6H PRN (Reason: Fever Or Pain) sumatriptan succinate 50 mg tablet See Rx Instructions .ROUTE .COMPLEX Rx Instructions: TAKE 1 TABLET BY MOUTH at ONSET of headache, MAY REPEAT ONCE in 24 hours ropinirole 0.25 mg tablet 0.25 mg PO DAILY multivit with min-folic acid [Daily Multiple For Women 50+] 0.4 mg Tablet 1 tab PO DAILY naloxone 4 mg/actuation spray,non-aerosol See Rx Instructions .ROUTE .COMPLEX Rx Instructions: intranasally ;CALL 911. Use one full spray in one nostril one time. Repeat every 2-3 minutes as needed if no or minimal response. alendronate 70 mg tablet See Rx Instructions .ROUTE .COMPLEX Rx Instructions: 70 mg orally by mouth every week oxycodone-acetaminophen 10-325 mg tablet 1 tab PO Q6H MDD 4 PRN (Reason: Pain) lisinopril 10 mg tablet 10 mg PO DAILY albuterol sulfate 90 mcg/actuation HFA aerosol inhaler 2 puff INHALATION Q4H PRN (Reason: Wheezing) celecoxib 200 mg capsule 200 mg PO BID Discharge Orders: Discharge ED (Routine); Ordered 12/26/24 Ordered By: Reg Hernadez Referrals: Charity Salazar MD [Primary Care Provider, Internal Medicine] Discharge Diet: Advance as tolerated Discharge Activity: Increase activity as tolerated Patient Instructions: Opioid Use Disorder (ED), Pain Management, Patient Portal & [place] Instructions Activity Restrictions/Additional Instructions: As we discussed, long-term use of opioids such as oxycodone can cause you to have something called opioid-induced hyperalgesia. When this happens, the brain senses small pains as large pains which triggers the brain to ask for more opioid. This cycle can go on endlessly and it is best to talk with your pain management doctor to see whether you can taper your dose or completely omit it to reset your brain receptors so that small pains register as small pains again as they used to before you overtook opioid medication. 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
== END 2024-12-26 22:26 | disposition home or self-care (01) ==
PROVIDERS: Emergency Provider Student in an Organized Health Care Education/Training Program; PCP Internal Medicine
DX: F11.988 Opioid use, unspecified with other opioid-induced disorder (principal); R20.8 Other disturbances of skin sensation; E03.9 Hypothyroidism, unspecified; I10 Essential (primary) hypertension; R51.9 Headache, unspecified; Z79.899 Other long term (current) drug therapy; Z79.82 Long term (current) use of aspirin; Z79.890 Hormone replacement therapy; Z88.8 Allergy status to other drugs, medicaments and biological substances; Z88.2 Allergy status to sulfonamides; Z88.0 Allergy status to penicillin
CPT/HCPCS: 96372; 99284; J1171

== ENCOUNTER → 2025-01-24 14:11 | Outpatient (BNVA) | payer MEDICARE, MEDICAID, SELFPAY | PROVIDERS: PCP Internal Medicine; Visit Provider Student in an Organized Health Care Education/Training Program | DX: S72.22XA Displaced subtrochanteric fracture of left femur, initial encounter for closed fracture (principal); W19.XXXA Unspecified fall, initial encounter; Z48.89 Encounter for other specified surgical aftercare | CPT/HCPCS: 73502; 73552; 99213 ==

== ENCOUNTER → 2025-03-13 15:18 | Outpatient (BNVA) | payer MEDICARE, MEDICAID, SELFPAY | PROVIDERS: Visit Provider Student in an Organized Health Care Education/Training Program | DX: M70.61 Trochanteric bursitis, right hip (principal) | CPT/HCPCS: 20610; 72110; 73502; 99213; J3301; J3490; J9999 ==

== ENCOUNTER 2025-04-02 15:58 | Outpatient (CLI) | payer MEDICARE, MEDICAID, SELFPAY ==
--- NOTE | 2025-04-02 16:07 | XRR_ITS ---
PROCEDURE INFORMATION: Exam: XR Left Femur Exam date and time: 04/02/2025 4:14 PM Age: 64 years old Clinical indication: Pain; Thigh; left; Prior surgery; Surgery date: 6+ months; Surgery type: Femur; Additional info: Jody-prosthetic supracondylar fracture of femur, PT states surgery pain were both in left leg. TECHNIQUE: Imaging protocol: Radiologic exam of the left femur. Views: 2 views. COMPARISON: CR XR femur LT min 2V* [id number] 01/24/2025 2:19 PM FINDINGS: Bones/joints: Status post ORIF for left femoral fracture with lateral plate and screws in the distal femur and oblique nail and long intramedullary jef in the proximal femur.. Hardware is intact. Healed distal femoral fracture is noted. Cortical irregularity in the posterolateral aspect of the proximal femur in the region of the proximal shaft, the fracture can not be excluded, recommend clinical correlation and CT as indicated. Soft tissues: Unremarkable. XR/XR femur LT min 2V* [id number] IMPRESSION: 1. Cortical irregularity in the posterolateral aspect of the proximal femur which may be due to a new fracture, recommend clinical correlation and CT as indicated. 2. Stable postop findings in the distal left femur.
== END 2025-04-02 15:59 | disposition home or self-care (01) ==
PROVIDERS: Visit Provider Physician Assistant Medical
DX: M89.8X5 Other specified disorders of bone, thigh (principal); Z98.890 Other specified postprocedural states
CPT/HCPCS: 73552